=== PATIENT | male | born 1995 | race Two or more races ===

== ENCOUNTER 2021-02-19 18:10 | Inpatient (IN) | payer MEDICAID, SELFPAY ==
--- NOTE | ~2021-02-19 | XR_ITS ---
EXAMINATION: XR CHEST CLINICAL INFORMATION: Shortness of breath COMPARISON: 09/11/2019 TECHNIQUE: Frontal view of the chest was obtained. FINDINGS: Ill-defined patchy density seen at the left lung base which is new. In addition, some infrahilar right lower lobe patchy density may be present as well. Heart size normal. No evidence of CHF. No pleural effusions. XR/XR chest 1V IMPRESSION: Commonly reported imaging features of Covid 19 or viral pneumonia are present. Other processes such as influenza pneumonia or organizing pneumonia, as can be seen with drug toxicity and connective tissue disease, can cause a similar imaging pattern.
--- NOTE | ~2021-02-19 | CT_ITS ---
EXAMINATION: CT ANGIOGRAM OF THE CHEST WITH AND WITHOUT CONTRAST (CT PULMONARY ANGIOGRAM FOR PE) CLINICAL INFORMATION: Reason for Exam Hypoxia, elevated D-dimer COMPARISON: Chest radiograph from 02/19/2021. No prior chest CT. TECHNIQUE: Prior to contrast administration, noncontrast localization images were obtained. Subsequently, multidetector volumetric imaging was performed from the thoracic inlet to below the diaphragms following the administration of 135 mL Omnipaque 350 intravenous contrast. No contrast reaction reported Sagittal, coronal, and MIP oblique sagittal reformatted images were obtained on the CT workstation, uploaded to PACS, and reviewed. This CT examination was performed using dose optimization techniques as appropriate, variously including the following: *Automated exposure control *Adjustment of mA and/or kV according to patient size (this includes techniques or standardized protocols for targeted exams where dose is matched to indication/reason for exam; i.e. extremities or head) *Use of iterative reconstruction technique Total exam dose-length product 810 mGy-cm FINDINGS: QUALITY OF STUDY/CONTRAST BOLUS: Satisfactory. PULMONARY ARTERIES: No central or segmental pulmonary emboli. THORACIC AORTA: No aneurysm or dissection. LUNG: The central airways are patent. Tree in bud groundglass opacities of the right middle lobe. Additional groundglass opacity seen in both lower lobes and the lingula. No dense consolidation. PLEURA: No pleural effusion or pneumothorax. MEDIASTINUM: Normal heart size. No pericardial effusion. No hilar or mediastinal lymphadenopathy. No evidence of septal bowing or right heart strain. CHEST WALL/AXILLA: No axillary or internal mammary lymphadenopathy. OSSEOUS STRUCTURES: No acute or suspicious osseous abnormality. UPPER ABDOMEN: Small hiatal hernia. No reflux of contrast into the hepatic veins to suggest elevated right heart pressures. CT/CT angio chest PE protocol IMPRESSION: 1. No pulmonary embolism. 2. Groundglass opacities are scattered in both lungs, likely infectious or inflammatory in nature. VTE: negative
--- NOTE | ~2021-02-19 | US_ITS ---
EXAMINATION: US VENOUS ULTRASOUND WITH DOPPLER LOWER EXTREMITY, BILATERAL CLINICAL INFORMATION: Positive d-dimer. History of travel. COMPARISON: None TECHNIQUE: Ultrasound of the deep veins is performed from the hip to the calf with compression sonography and color and pulse Doppler assessment. Spectral analysis with color-flow imaging is performed. FINDINGS: RIGHT: There is normal venous compression and respiratory variation and augmented flow. The visualized common femoral vein, superficial femoral vein, profunda femoral vein, popliteal vein, and the trifurcation region shows no evidence of deep venous thrombosis. There is no significant popliteal fossa cyst. LEFT: There is normal venous compression and respiratory variation and augmented flow. The visualized common femoral vein, superficial femoral vein, profunda femoral vein, popliteal vein, and the trifurcation region shows no evidence of deep venous thrombosis. There is no significant popliteal fossa cyst. If the patient's symptoms persist, followup ultrasound in 5 days 7 days might be of value to exclude proximal propagation from a non-visualized calf vein. US/US venous duplex LE BI IMPRESSION: No DVT demonstrated in the bilateral lower extremities.
[2021-02-19 18:34] VITALS: BP 145/78; PULSE 124; RESP 24; TEMP 36.8; O2SAT 93; BMI 36.4
--- NOTE | 2021-02-19 19:32 | ECG_ITS ---
Test Reason : DIFF BREATHING Blood Pressure : / mmHG Vent. Rate : 109 BPM Atrial Rate : 109 BPM P-R Int : 126 ms QRS Dur : 088 ms QT Int : 296 ms P-R-T Axes : 063 077 060 degrees QTc Int : 398 ms Sinus tachycardia Otherwise normal ECG When compared with ECG of 11-SEP-2019 06:02, No significant change was found Referred By: Lillian Pickard Electronically Signed By:ERIKA VILLARREAL
--- NOTE | 2021-02-19 19:33 | ED.ASTHMA ---
HPI - Asthma General Chief Complaint: Asthma Stated Complaint: Asthma Time Seen by Provider: 02/19/21 19:25 Source: patient Mode of arrival: ambulatory History of Present Illness HPI Narrative: 26-year-old male with a past medical history of asthma presenting to the ED complaining of asthma exacerbation with nonproductive cough, SOB, and wheezing x1 hour. Admits his asthma is exacerbated with seasonal allergies which he is experiencing from the pollen, patient is visiting from [place] has been here for about 1 week. Reports using rescue inhaler with minimal relief, did not bring nebulizer machine. Denies chest pain, LE edema, history of blood clots, cigarette smoking MD complaint: asthma attack and shortness of breath Related Data Home Medications Medication Instructions Recorded Confirmed albuterol sulfate 1 puff PO Q6H PRN 02/19/21 02/19/21 fluticasone propion-salmeterol 1 puff INHALATION BID 02/19/21 02/19/21 [Advair Diskus] ipratropium-albuterol 1 vial INHALATION Q6H PRN 02/19/21 02/19/21 montelukast 1 tab PO BEDTIME 02/19/21 02/19/21 Allergies Allergy/AdvReac Type Severity Reaction Status Date / Time shellfish derived Allergy Severe SHORTNESS Verified 02/19/21 18:38 OF BREATH, SWELLING shrimp Allergy Severe ANAPHYLAXIS Verified 02/19/21 18:38 Review of Systems Review of Systems: Constitutional: No Fever, No Chills Cardiovascular: No Chest Pain, + SOB, No Dyspnea on Exertion, No Orthopnea, No Edema Respiratory: No Cough, No Sputum, +Wheezing Gastrointestinal: No Nausea, No Vomiting, No Diarrhea, No Constipation, No Abdominal pain Genitourinary: No Dysuria, No Urinary Frequency, No Hematuria Musculoskeletal: No joint pain, No Myalgias Skin: No Skin Lesions, No rash Neuro: No Weakness, No Numbness Yes all other systems are reviewed and are negative PMFSH Past Medical History Attestation statement: The following information was validated with the patient. Medical History (Updated 02/20/21 @ 00:38 by CAMDEN Ledezma) Asthma Social History Social History Advance Directives: No Physical Exam Vital Signs: Vital Signs: Last Vital Signs Temp 98.3 F 02/19/21 18:34 Pulse 116 H 02/19/21 23:52 Resp 24 H 02/19/21 23:52 BP 121/69 02/19/21 23:52 Pulse Ox 90 L 02/19/21 23:52 Body Mass Index 36.4 Const: General: cooperative Orientation/consciousness: patient oriented x3 Limitations: no limitations HENMT: Head: Yes normal to inspection Ears: hearing grossly normal bilaterally General nose exam: Normal external nose present Face and sinus: Yes normal facial exam Eyes: General: appearance normal, both eyes and all related structures EOM: EOMs intact bilaterally Neck: Neck: Yes normal visual inspection Resp: Effort & Inspection: no stridor and tachypneic Auscultation: wheezes expiratory wheezes and throughout Cardio: Rate: tachycardic Heart sounds: S1 normal heart sound present and S2 normal heart sound present GI: Inspection: Yes normal to inspection Palpation (GI): Soft to palpation and nontender Skin: Rashes: no rashes Wounds: no wounds Neuro: General: patient oriented x3 Gait exam (Neuro): Normal gait present Extrem: General: Yes normal to inspection, Yes no pedal edema and Yes no calf tenderness Course Course Course Narrative: XR chest 1V IMPRESSION: Commonly reported imaging features of Covid 19 or viral pneumonia are present. Other processes such as influenza pneumonia or organizing pneumonia, as can be seen with drug toxicity and connective tissue disease, can cause a similar imaging pattern. >> noted leukocytosis of 14.8 >> lactic and blood cultures added. Low concern for severe sepsis. IV ceftriaxone/azithromycin ordered. -labs otherwise unremarkable, troponin negative, COVID-19 negative -2153--on re-evaluation patient is sleeping and satting 88% on RA, lungs still with diffuse expiratory wheeze. Coags/D-dimer additional hour long nebulizer ordered, plan for admission -2231--D-dimer elevated to 339 >>will obtain CTA to rule out PE CT angio chest PE protocol IMPRESSION: 1. No pulmonary embolism. 2. Groundglass opacities are scattered in both lungs, likely infectious or inflammatory in nature. VTE: negative -0037--patient admitted to hospitalist for further management MDM - Asthma MDM Narrative Medical decision making narrative: 26-year-old male with a past medical history of asthma presenting to the ED complaining of asthma exacerbation with nonproductive cough, SOB, and wheezing x1 hour. On exam initially tachycardic and tachypneic with diffuse expiratory wheeze throughout, no pedal edema or calf tenderness. Concern for asthma exacerbation. Rule out pneumonia vs viral syndrome/COVID-19. Lower concern for ACS/PE Low concern for severe sepsis Plan: EKG, labs, COVID-19 testing, DuoNeb, magnesium, Solu-Medrol, reassess Medical Records Attestation: I reviewed the patient's medical records. Lab Data Attestation: I reviewed the patient's lab results. Result diagrams: 02/19/21 20:07 02/19/21 20:07 Labs: Lab Results 02/19/21 02/19/21 02/19/21 Range/Units 20:07 20:07 20:07 WBC 14.8 H (4.8-10.8) X10*3/uL RBC 4.88 (4.60-5.80) X10*6/uL Hgb 13.6 L (14.0-18.0) g/dl Hct 39.0 L (42-52) % MCV 79.9 L (80-98) fL MCH 27.9 (27.0-33.0) pg MCHC 34.9 (31.0-36.0) g/dl RDW 12.2 (11.0-16.0) % Plt Count 315 (160-400) X10*3/uL MPV 9.7 (9.4-12.4) fL Immature Gran % (Auto) 0.4 (0.0-0.4) % Neut % (Auto) 62.9 (45-73) % Lymph % (Auto) 19.1 L (20-40) % [place] % (Auto) 8.0 (2-11) % Eos % (Auto) 8.5 H (0-4) % Baso % (Auto) 1.1 (0-2) % Lymph # (Auto) 2.8 (1.2-4.9) X10*3/uL [place] # (Auto) 1.2 (0.1-1.2) X10*3/uL Eos # (Auto) 1.3 H (0.0-0.4) X10*3/uL Baso # (Auto) 0.2 (0.0-0.2) X10*3/uL Abs Immat Gran (auto) 0.06 H (0.00-0.03) X10*3/uL Absolute Neuts (auto) 9.3 H (2.0-8.3) X10*3/uL Absolute Nucleated RBC 0.000 (0.0-0.012) X10*3/uL Nucleated RBC % (auto) 0.0 (0.0-0.2) /100WBC PT (9.9-13.0) SEC INR (0.9-1.1) APTT (24.1-38.0) SEC D-Dimer NG/ML Sodium 138 (135-145) mmol/L Potassium 4.7 (3.3-5.1) mmol/L Chloride 107 (96-108) mmol/L Carbon Dioxide 20 L (22-29) mmol/L Anion Gap 16 (12-20) BUN 8 L (9-16) mg/dL Creatinine 0.79 (0.5-1.4) mg/dL Estim Creat Clear Calc 152.2 Estimated GFR > 60 Random Glucose 87 (60-115) mg/dL Lactic Acid (0.5-2.0) mmol/L Calcium 9.1 (8.4-10.2) mg/dL Troponin I High Sens < 3.5 (<3.5-35.0) ng/L B-Natriuretic Peptide (<100) pg/mL Coronavirus (PCR) (Negative) COVID-19 ([facility]) (Negative) COVID-19 Clin Com Influenza Type A (PCR) (Negative) Influenza Type B (PCR) (Negative) RSV RNA Qual (PCR) (Negative) 02/19/21 02/19/21 02/19/21 Range/Units 20:07 20:07 21:16 WBC (4.8-10.8) X10*3/uL RBC (4.60-5.80) X10*6/uL Hgb (14.0-18.0) g/dl Hct (42-52) % MCV (80-98) fL MCH (27.0-33.0) pg MCHC (31.0-36.0) g/dl RDW (11.0-16.0) % Plt Count (160-400) X10*3/uL MPV (9.4-12.4) fL Immature Gran % (Auto) (0.0-0.4) % Neut % (Auto) (45-73) % Lymph % (Auto) (20-40) % [place] % (Auto) (2-11) % Eos % (Auto) (0-4) % Baso % (Auto) (0-2) % Lymph # (Auto) (1.2-4.9) X10*3/uL [place] # (Auto) (0.1-1.2) X10*3/uL Eos # (Auto) (0.0-0.4) X10*3/uL Baso # (Auto) (0.0-0.2) X10*3/uL Abs Immat Gran (auto) (0.00-0.03) X10*3/uL Absolute Neuts (auto) (2.0-8.3) X10*3/uL Absolute Nucleated RBC (0.0-0.012) X10*3/uL Nucleated RBC % (auto) (0.0-0.2) /100WBC PT (9.9-13.0) SEC INR (0.9-1.1) APTT (24.1-38.0) SEC D-Dimer NG/ML Sodium (135-145) mmol/L Potassium (3.3-5.1) mmol/L Chloride (96-108) mmol/L Carbon Dioxide (22-29) mmol/L Anion Gap (12-20) BUN (9-16) mg/dL Creatinine (0.5-1.4) mg/dL Estim Creat Clear Calc Estimated GFR Random Glucose (60-115) mg/dL Lactic Acid 1.0 (0.5-2.0) mmol/L Calcium (8.4-10.2) mg/dL Troponin I High Sens (<3.5-35.0) ng/L B-Natriuretic Peptide < 10 (<100) pg/mL Coronavirus (PCR) (Negative) COVID-19 ([facility]) Negative (Negative) COVID-19 Clin Com See Note Influenza Type A (PCR) (Negative) Influenza Type B (PCR) (Negative) RSV RNA Qual (PCR) (Negative) 02/19/21 02/19/21 Range/Units 22:00 23:00 WBC (4.8-10.8) X10*3/uL RBC (4.60-5.80) X10*6/uL Hgb (14.0-18.0) g/dl Hct (42-52) % MCV (80-98) fL MCH (27.0-33.0) pg MCHC (31.0-36.0) g/dl RDW (11.0-16.0) % Plt Count (160-400) X10*3/uL MPV (9.4-12.4) fL Immature Gran % (Auto) (0.0-0.4) % Neut % (Auto) (45-73) % Lymph % (Auto) (20-40) % [place] % (Auto) (2-11) % Eos % (Auto) (0-4) % Baso % (Auto) (0-2) % Lymph # (Auto) (1.2-4.9) X10*3/uL [place] # (Auto) (0.1-1.2) X10*3/uL Eos # (Auto) (0.0-0.4) X10*3/uL Baso # (Auto) (0.0-0.2) X10*3/uL Abs Immat Gran (auto) (0.00-0.03) X10*3/uL Absolute Neuts (auto) (2.0-8.3) X10*3/uL Absolute Nucleated RBC (0.0-0.012) X10*3/uL Nucleated RBC % (auto) (0.0-0.2) /100WBC PT 12.7 (9.9-13.0) SEC INR 1.1 (0.9-1.1) APTT 36.0 (24.1-38.0) SEC D-Dimer 339 NG/ML Sodium (135-145) mmol/L Potassium (3.3-5.1) mmol/L Chloride (96-108) mmol/L Carbon Dioxide (22-29) mmol/L Anion Gap (12-20) BUN (9-16) mg/dL Creatinine (0.5-1.4) mg/dL Estim Creat Clear Calc Estimated GFR Random Glucose (60-115) mg/dL Lactic Acid (0.5-2.0) mmol/L Calcium (8.4-10.2) mg/dL Troponin I High Sens (<3.5-35.0) ng/L B-Natriuretic Peptide (<100) pg/mL Coronavirus (PCR) NEGATIVE (Negative) COVID-19 ([facility]) (Negative) COVID-19 Clin Com Influenza Type A (PCR) NEGATIVE (Negative) Influenza Type B (PCR) NEGATIVE (Negative) RSV RNA Qual (PCR) NEGATIVE (Negative) Discharge Plan Discharge Clinical Impression: Asthma with acute exacerbation, Ground glass opacity present on imaging of lung Patient Disposition: Admitted As Inpatient Prescriptions: No Action ipratropium-albuterol 0.5 mg-3 mg(2.5 mg base)/3 mL solution for nebulization 1 vial inhalation Q6H PRN (Reason: wheezing) RF: 0 fluticasone propion-salmeterol [Advair Diskus] 500-50 mcg/dose blister with device 1 puff inhalation BID RF: 0 montelukast 10 mg tablet 1 tab PO BEDTIME RF: 0 albuterol sulfate 90 mcg/actuation HFA aerosol inhaler 1 puff PO Q6H PRN (Reason: wheezing) RF: 0
[2021-02-19] MEDS: Albuterol Sulfate (0.083%) 2.5 MG/3 ML VIAL.NEB 10 MG INHALE ×2 (19:52→23:05)
[2021-02-19 19:53] VITALS: PULSE 117; O2SAT 94
[2021-02-19 20:13] LABS: MANUAL DIFF FLAG NO
[2021-02-19] MEDS: Magnesium Sulfate/H2O 2 GM/50 ML PIGGYBACK IV (20:14)
[2021-02-19] MEDS: methylPREDNISolone Sod Succ 125 MG/2 ML VIAL IVPUSH (20:14)
[2021-02-19 20:16] LABS: Basophils Absolute Auto 0.2 X10*3/uL (0.0-0.2); Basophils Percent Auto 1.1 % (0-2); Eosinophils Absolute Auto 1.3 X10*3/uL (0.0-0.4); Eosinophils Percent Auto 8.5 % (0-4); Hemoglobin 13.6 g/dl (14.0-18.0); Imm Gran Abs Auto 0.06 X10*3/uL (0.00-0.03); Imm Gran Pct Auto 0.4 % (0.0-0.4); Lymphocytes Absolute Auto 2.8 X10*3/uL (1.2-4.9); Lymphocytes Percent Auto 19.1 % (20-40); Mean Corpuscular HGB Conc 34.9 g/dl (31.0-36.0); Mean Corpuscular Hemoglobin 27.9 pg (27.0-33.0); Mean Corpuscular Volume 79.9 fL (80-98); Mean Platelet Volume 9.7 fL (9.4-12.4); Monocytes Absolute Auto 1.2 X10*3/uL (0.1-1.2); Neutrophils Absolute Auto 9.3 X10*3/uL (2.0-8.3); Neutrophils Percent Auto 62.9 % (45-73); Platelet Count 315 X10*3/uL (160-400); Red Blood Count 4.88 X10*6/uL (4.60-5.80); Red Cell Distribution Width 12.2 % (11.0-16.0); White Blood Count 14.8 X10*3/uL (4.8-10.8)
[2021-02-19 20:42] LABS: COVID-19 Test Negative (Negative)
[2021-02-19 20:46] LABS: Anion Gap 16 (12-20); Blood Urea Nitrogen 8 mg/dL (9-16); Calcium 9.1 mg/dL (8.4-10.2); Carbon Dioxide 20 mmol/L (22-29); Chloride 107 mmol/L (96-108); Creatinine Clr Calc Pharmacy 152.2; Estimated Glomerular Filt Rate > 60; Glucose Random 87 mg/dL (60-115); Potassium 4.7 mmol/L (3.3-5.1); Sodium 138 mmol/L (135-145)
[2021-02-19 20:50] LABS: Troponin-I High Sensitivity < 3.5 ng/L (<3.5-35.0)
--- NOTE | 2021-02-19 20:59 | PC.NURSE ---
PT'S SPO2 88% WHILE SLEEPING. PT WAKES AND SPO2 UP TO 93% ROOM AIR. PT REPORTS HE BEGAN COUGHING TODAY, THINKS HIS NASAL CONGESTION IS FROM SEASONAL ALLERGIES.
[2021-02-19 21:00] VITALS: BP 136/80; PULSE 121; RESP 22; O2SAT 91
[2021-02-19] MEDS: cefTRIAXone sodium 1 GM in 0.9 % Sodium Chloride 50 ML IV (22:08)
--- NOTE | 2021-02-19 22:08 | PHA.MEDREC ---
Pharmacy Consult ? Medication Reconciliation Pharmacy has completed the medication reconciliation.
[2021-02-19 22:14] LABS: INTERNATIONAL NORM RATIO 1.1 (0.9-1.1); Prothrombin Time 12.7 SEC (9.9-13.0)
[2021-02-19 22:17] LABS: D Dimer 339 NG/ML
--- NOTE | 2021-02-19 22:22 | PC.NURSE ---
PT PLACED ON 2 LPM O2 VIA NC, SPO3 REMAINS AT 94%.
[2021-02-19 22:42] LABS: B Type Natriuretic Peptide < 10 pg/mL (<100)
[2021-02-19] MEDS: Azithromycin 500 MG in 0.9 % Sodium Chloride 250 ML 125 MG IV (22:48)
--- NOTE | 2021-02-19 22:49 | PC.NURSE ---
PT REPORTS FEELING BETTER FOLLOWING RESPIRATORY TREATMENT. PT RESTING ON STRETCHER IN SUPINE POSITION. PT ON 3 LPM 02 VIA NC AND IS AT 97%.
[2021-02-19 23:05] VITALS: PULSE 107; O2SAT 95
[2021-02-19 23:52] VITALS: BP 121/69; PULSE 116; RESP 24; O2SAT 90
[2021-02-19 23:55] LABS: Influenza A PCR NEGATIVE (Negative); Influenza B PCR NEGATIVE (Negative); Resp Syncy Virus RNA Qual PCR NEGATIVE (Negative); SARS COV2 PCR INHOUSE NEGATIVE (Negative)
--- NOTE | 2021-02-20 | PC.NURSE ---
PT REQUESTED AND GIVEN SODA, SANDWICH AND CRACKERS. PT SITTING UPRIGHT, NO DISTRESS OR COMPLAINT OF DYSPNEA.
[2021-02-20] MEDS: iohexoL 350 MG/ML 100 ML INFUS..BTL 136 ML IV (00:14)
--- NOTE | 2021-02-20 00:43 | P.HPHOSP_ITS ---
History of Present Illness Date of Service: 02/20/21 Chief Complaint: SOB 26-year-old male with a past medical history of asthma presented to the hospital with a chief complaint of shortness of breath. Patient reported that about 1 week ago he came from [place]; he has been having shortness of breath and dyspnea on exertion; S1 strict dry cough. Denies any fevers and chills. Denies any chest pain palpitations. Patient reports that he has been trying to use his home inhalers without significant improvement. Denies any numbness tingling. Denies any leg pains. Review of all other systems is negative except mentioned above ER course: Per ER team patient noted to have significant expiratory wheezing, diminished breath sounds; received nebulizations, Solu-Medrol, IV magnesium; patient was not in respiratory distress, speaking in full sentences. D-dimer was positive-CT chest showed no evidence of pulmonary embolism. But noted findings consistent with possible COVID-19. Patient was also given ceftriaxone and azithromycin for presumed pneumonia. Patient was hypoxic to 88% on room air subsequently placed on nasal cannula at 3 L. currently saturating 90-92%. Admitted for further management [facility] Medical History Asthma Social History Household Members: Family Do you presently have visiting nurse or other home services: No Patient Tobacco Use Status: Never used Tobacco Use of substances other than those prescribed or required for medical reasons: No Currently Displaying Signs/Symptoms of Drug Intoxication Withdrawal: No Have you been hit, kicked, punched, or otherwise hurt by someone within the past year? If so, by whom?: No Do you feel safe in your current relationship?: No Is there a partner from a previous relationship who is making you feel unsafe now?: No Spiritual Healthcare Practices: none reported [facility] Practices: none reported Cultural Healthcare Practices: none reported Advance Directives: No Advance Directives Information Provided: No (declined) Do you have thoughts of harming others: None Do you have a plan to hurt others: No Plan Recently lost weight without trying: Unsure Eating poorly because of decreased appetite: No Nutrition Risks: No Nutritional Risk Poor oral hygiene: No Meds Allergies Allergy/AdvReac Type Severity Reaction Status Date / Time shellfish derived Allergy Severe SHORTNESS Verified 02/19/21 18:38 OF BREATH, SWELLING shrimp Allergy Severe ANAPHYLAXIS Verified 02/19/21 18:38 Active Medications: Current Medications Generic Name Dose Route Start Last Admin Trade Name Freq PRN Reason Stop Dose Admin Albuterol/Ipratropium 3 ml 02/20/21 00:36 Albuterol/Iprat 2.5/0.5mg 3 Ml Ampul.Neb INHALE RQ4H PRN Shortness of Breath/Wheezing Albuterol/Ipratropium 3 ml 02/20/21 08:00 Albuterol/Iprat 2.5/0.5mg 3 Ml Ampul.Neb INHALE RQ6H WHILE AWAKE ENRIKE Famotidine 20 mg 02/20/21 09:00 Famotidine/Pf 20 Mg/2 Ml Vial IVPUSH BID [facility] Azithromycin 500 mg/ Sodium 250 mls @ 125 mls/hr 02/20/21 00:45 Chloride IV Q24H [facility] Ceftriaxone Sodium 1 gm/ 50 mls @ 100 mls/hr 02/20/21 00:45 Sodium Chloride IV Q24H [facility] Methylprednisolone Sodium Succinate 60 mg 02/20/21 00:45 Methylprednisolone Sod Succ 125 Mg/2 Ml Vial IVPUSH Q8H [facility] Montelukast Sodium 10 mg 02/20/21 21:00 Montelukast Sodium 10 Mg Tablet PO BEDTIME [facility] Morphine Sulfate 1 mg 02/20/21 00:36 Morphine Sulfate 2 Mg/Ml Cartridge IVPUSH Q6H PRN Shortness of Breath Pharmacy Consult 1 each 02/19/21 21:53 Consult Rx Perform Med Rec MISCELLANE ONCE PRN Consult order Home Medications Medication Instructions Recorded Confirmed Last Taken Type albuterol sulfate 1 puff PO Q6H PRN 02/19/21 02/19/21 Unknown History fluticasone propion-salmeterol 1 puff INHALATION BID 02/19/21 02/19/21 02/19/21 History [Advair Diskus] montelukast 1 tab PO BEDTIME 02/19/21 02/19/21 02/18/21 History Physical Exam Vital Signs and Narrative: Vital Signs: Last Vital Signs Temp 98.3 F 02/19/21 18:34 Pulse 116 H 02/19/21 23:52 Resp 24 H 02/19/21 23:52 BP 121/69 02/19/21 23:52 Pulse Ox 90 L 02/19/21 23:52 Body Mass Index 36.4 Gen: Appears be in no acute distress speaks in full sentences HEENT: NCAT, Moist mucosa. Pulmonary: Mildly diminished breath sounds, expiratory wheezing noted. CVS: Normal S1-S2 Abdomen: BS+, Soft, Nontender Extremities: Warm well perfused Neuro: Alert and awake. Results Labs CBC and Chem 7: 02/20/21 05:57 02/20/21 05:57 Labs: Laboratory Results - last 24 hr 02/19/21 02/19/21 02/19/21 20:07 20:07 20:07 MCV 79.9 L MCH 27.9 MCHC 34.9 RDW 12.2 Plt Count 315 MPV 9.7 Immature Gran % (Auto) 0.4 Neut % (Auto) 62.9 Lymph % (Auto) 19.1 L [place] % (Auto) 8.0 Eos % (Auto) 8.5 H Baso % (Auto) 1.1 Lymph # (Auto) 2.8 [place] # (Auto) 1.2 Eos # (Auto) 1.3 H Baso # (Auto) 0.2 Abs Immat Gran (auto) 0.06 H Absolute Neuts (auto) 9.3 H Absolute Nucleated RBC 0.000 Nucleated RBC % (auto) 0.0 PT INR APTT D-Dimer Anion Gap 16 Estim Creat Clear Calc 152.2 Estimated GFR > 60 Random Glucose 87 Lactic Acid Calcium 9.1 Troponin I High Sens < 3.5 B-Natriuretic Peptide Coronavirus (PCR) COVID-19 ([facility]) COVID-19 Clin Com Influenza Type A (PCR) Influenza Type B (PCR) RSV RNA Qual (PCR) 02/19/21 02/19/21 02/19/21 20:07 20:07 21:16 MCV MCH MCHC RDW Plt Count MPV Immature Gran % (Auto) Neut % (Auto) Lymph % (Auto) [place] % (Auto) Eos % (Auto) Baso % (Auto) Lymph # (Auto) [place] # (Auto) Eos # (Auto) Baso # (Auto) Abs Immat Gran (auto) Absolute Neuts (auto) Absolute Nucleated RBC Nucleated RBC % (auto) PT INR APTT D-Dimer Anion Gap Estim Creat Clear Calc Estimated GFR Random Glucose Lactic Acid 1.0 Calcium Troponin I High Sens B-Natriuretic Peptide < 10 Coronavirus (PCR) COVID-19 ([facility]) Negative COVID-19 Clin Com See Note Influenza Type A (PCR) Influenza Type B (PCR) RSV RNA Qual (PCR) 02/19/21 02/19/21 22:00 23:00 MCV MCH MCHC RDW Plt Count MPV Immature Gran % (Auto) Neut % (Auto) Lymph % (Auto) [place] % (Auto) Eos % (Auto) Baso % (Auto) Lymph # (Auto) [place] # (Auto) Eos # (Auto) Baso # (Auto) Abs Immat Gran (auto) Absolute Neuts (auto) Absolute Nucleated RBC Nucleated RBC % (auto) PT 12.7 INR 1.1 APTT 36.0 D-Dimer 339 Anion Gap Estim Creat Clear Calc Estimated GFR Random Glucose Lactic Acid Calcium Troponin I High Sens B-Natriuretic Peptide Coronavirus (PCR) NEGATIVE COVID-19 ([facility]) COVID-19 Clin Com Influenza Type A (PCR) NEGATIVE Influenza Type B (PCR) NEGATIVE RSV RNA Qual (PCR) NEGATIVE Imaging Radiologist's Impressions: Impressions Chest X-Ray 02/19/21 19:32 IMPRESSION: Commonly reported imaging features of Covid 19 or viral pneumonia are present. Other processes such as influenza pneumonia or organizing pneumonia, as can be seen with drug toxicity and connective tissue disease, can cause a similar imaging pattern. Chest CTA 02/19/21 22:31 IMPRESSION: 1. No pulmonary embolism. 2. Groundglass opacities are scattered in both lungs, likely infectious or inflammatory in nature. VTE: negative Assessment and Plan (1) Asthma with acute exacerbation: Status: Acute 26-year-old male with a past medical history of asthma, obesity presented to the hospital with a chief complaint of shortness of breath/wheezing. Noted to be in asthma exacerbation. Admitted for further management. Acute hypoxic respiratory failure: In the setting of Exacerbation/question COVID-19. Patient rapid COVID test was negative. CT scan showed ground-glass opacities consistent with COVID-19; no evidence of pulmonary embolism ? Presume pneumonia-started empiric ceftriaxone azithromycin. Will consult ID and pulmonology for further recommendations. Supplemental oxygen with goal saturation of 95%. Positive D-dimer: Pending venous duplex Acute asthma exacerbation: Continue Solu-Medrol IV t.i.d.. Nebulizations standing and p.r.n.. DVT prophylaxis: Lovenox Code status: Full code Quality Stroke Does the patient have a stroke diagnosis?: No VTE Prior VTE?: No VTE Risk Level:: Medical - moderate - high VTE Device Contraindication: Treatment Not Indicated VTE Drug Contraindication: N/A - Med Ordered
[2021-02-20 02:48] VITALS: BP 137/68; PULSE 111; RESP 20; TEMP 36.7; O2SAT 95
[2021-02-20] MEDS: Enoxaparin Sodium 40 MG/0.4 ML SYRINGE SUBCUT (03:01)
[2021-02-20] MEDS: methylPREDNISolone Sod Succ 125 MG/2 ML VIAL 60 MG IVPUSH (05:04)
[2021-02-20 06:35] LABS: MANUAL DIFF FLAG NO
[2021-02-20 07:19] VITALS: BP 126/52; PULSE 96; RESP 20; TEMP 36.4; O2SAT 94
[2021-02-20 07:21] LABS: Anion Gap 17 (12-20); Blood Urea Nitrogen 8 mg/dL (9-16); Calcium 9.1 mg/dL (8.4-10.2); Carbon Dioxide 20 mmol/L (22-29); Chloride 106 mmol/L (96-108); Creatinine Clr Calc Pharmacy 143.1; Estimated Glomerular Filt Rate > 60; Glucose Random 159 mg/dL (60-115); Potassium 4.7 mmol/L (3.3-5.1); Sodium 138 mmol/L (135-145)
[2021-02-20] MEDS: Albuterol/Iprat 2.5/0.5MG 3 ML AMPUL.NEB INHALE (07:28)
[2021-02-20 07:29] VITALS: PULSE 102; O2SAT 94
[2021-02-20 07:36] LABS: Basophils Absolute Auto 0.1 X10*3/uL (0.0-0.2); Basophils Percent Auto 0.4 % (0-2); Eosinophils Percent Auto 0.1 % (0-4); Hematocrit 40.1 % (42-52); Hemoglobin 13.7 g/dl (14.0-18.0); Imm Gran Abs Auto 0.09 X10*3/uL (0.00-0.03); Imm Gran Pct Auto 0.6 % (0.0-0.4); Lymphocytes Absolute Auto 1.2 X10*3/uL (1.2-4.9); Lymphocytes Percent Auto 7.7 % (20-40); Mean Corpuscular HGB Conc 34.2 g/dl (31.0-36.0); Mean Corpuscular Hemoglobin 27.9 pg (27.0-33.0); Mean Corpuscular Volume 81.7 fL (80-98); Mean Platelet Volume 10.1 fL (9.4-12.4); Monocytes Absolute Auto 0.3 X10*3/uL (0.1-1.2); Monocytes Percent Auto 1.7 % (2-11); Neutrophils Percent Auto 89.5 % (45-73); Platelet Count 336 X10*3/uL (160-400); Red Blood Count 4.91 X10*6/uL (4.60-5.80); Red Cell Distribution Width 12.5 % (11.0-16.0); White Blood Count 15.7 X10*3/uL (4.8-10.8)
[2021-02-20] MEDS: 0.9 % Sodium Chloride Flush 3 ML SYRINGE IVFLUSH (08:10)
[2021-02-20] MEDS: Famotidine/PF 20 MG/2 ML VIAL IVPUSH (08:12)
[2021-02-20 09:06] LABS: Lactate Dehydrogenase 234 U/L (118-273)
[2021-02-20 09:30] LABS: Ferritin 167 ng/mL (20-250)
[2021-02-20 10:47] LABS: Procalcitonin 0.03 ng/mL
[2021-02-20 11:25] VITALS: BP 124/70; PULSE 101; RESP 18; O2SAT 95
--- NOTE | 2021-02-20 12:28 | PM.DS ---
DS: Providers Provider Date of Service: 02/20/21 Date of admission: 02/20/21 00:40 Date of discharge: 02/20/21 Primary care physician: Vernon Physician Admitting clinician: Deandre Lim Attending physician on admission: Deandre Lim Consults: 02/20/21 00:36 Consult to Infectious Diseases Routine Consulting Provider: Netta Jones Reason for consultation: CT with [facility]; ?COVID Consult to Pulmonology Routine Consulting Provider: Adriana Ramos Reason for consultation: Asthma/hypoxia/?COVID Attending physician on discharge: Juancarlos Baron Discharging clinician: Ashanti Rios DS: Diagnosis Discharge Diagnosis (1) Ground glass opacity present on imaging of lung: Status: Acute (2) Asthma with acute exacerbation: Status: Acute DS: Medications Discharge Medications Home Medications: Home Medications Medication Instructions Recorded Confirmed albuterol sulfate 1 puff PO Q6H PRN 02/19/21 02/19/21 fluticasone propion-salmeterol 1 puff INHALATION BID 02/19/21 02/19/21 [Advair Diskus] montelukast 1 tab PO BEDTIME 02/19/21 02/19/21 Previous Rx's Medication Instructions Recorded albuterol sulfate 2.5 mg INHALATION Q4-6H PRN 30 02/20/21 Days ml azithromycin 500 mg PO DAILY #6 tab 02/20/21 cefuroxime axetil 500 mg PO BID #12 tab 02/20/21 prednisone 40 mg PO DAILY #16 tab 02/20/21 DS: Summary Hospital Course Hospital Course: HP as per admitting provider 26-year-old male with a past medical history of asthma presented to the hospital with a chief complaint of shortness of breath. Patient reported that about 1 week ago he came from [place]; he has been having shortness of breath and dyspnea on exertion; S1 strict dry cough. Denies any fevers and chills. Denies any chest pain palpitations. Patient reports that he has been trying to use his home inhalers without significant improvement. Denies any numbness tingling. Denies any leg pains.Review of all other systems is negative except mentioned above ER course: Per ER team patient noted to have significant expiratory wheezing, diminished breath sounds; received nebulizations, Solu-Medrol, IV magnesium; patient was not in respiratory distress, speaking in full sentences. D-dimer was positive-CT chest showed no evidence of pulmonary embolism. But noted findings consistent with possible COVID-19. Patient was also given ceftriaxone and azithromycin for presumed pneumonia. Patient was hypoxic to 88% on room air subsequently placed on nasal cannula at 3 L. currently saturating 90-92%. Admitted for further management . Community-acquired pneumonia. Patient was admitted with symptoms of asthma exacerbation, he was subsequently diagnosed with pneumonia, COVID negative. Patient has a long history of asthma he reports that he has been more well controlled more recently. He had been more frequently admitted but moved to [place] approximately 2 years ago, is currently visiting. He was started on Rocephin and azithromycin however he told his nurse that he needed to leave because he had nobody to watch his children. He was aware that his symptoms could worsen without the current medication he is receiving he reported that he was aware and he wants to leave against medical advice. He will be sent with 6 more days of Ceftin and azithromycin. New prescription for albuterol DuoNeb solution and 4 days of prednisone. He was told that he should return to the ER if his symptoms worsen or do not improve. Time Spent with Patient Time attestation: Total time spent providing and/or coordinating discharge services: Discharge coordination time: Greater than 30 minutes Quality: Stroke Does the patient have a stroke diagnosis?: No Physical Exam Vital Signs: Vital Signs: Last Vital Signs Temp 97.5 F 02/20/21 07:19 Pulse 101 H 02/20/21 11:25 Resp 18 02/20/21 11:25 BP 124/70 02/20/21 11:25 Pulse Ox 95 02/20/21 11:25 Body Mass Index 36.4 Appearing in no acute distress head is normocephalic atraumatic eyes pupils are PERRLA sclera is anicteric mouth throat mucous membranes are intact and moist neck is supple no lymphadenopathy, no JVD noted lung sounds Mild expiratory wheezes heart regular rate rhythm, clear S1, S2 positive bowel sounds, abdomen is soft, nontender neuro patient is alert x3, no focal deficits DS: Data Data Completed and Pending Labs on day of discharge: Laboratory Results - last 24 hr 02/19/21 02/19/21 02/19/21 20:07 20:07 20:07 WBC 14.8 H RBC 4.88 Hgb 13.6 L Hct 39.0 L MCV 79.9 L MCH 27.9 MCHC 34.9 RDW 12.2 Plt Count 315 MPV 9.7 Immature Gran % (Auto) 0.4 Neut % (Auto) 62.9 Lymph % (Auto) 19.1 L [place] % (Auto) 8.0 Eos % (Auto) 8.5 H Baso % (Auto) 1.1 Lymph # (Auto) 2.8 [place] # (Auto) 1.2 Eos # (Auto) 1.3 H Baso # (Auto) 0.2 Abs Immat Gran (auto) 0.06 H Absolute Neuts (auto) 9.3 H Absolute Nucleated RBC 0.000 Nucleated RBC % (auto) 0.0 PT INR APTT D-Dimer Sodium 138 Potassium 4.7 Chloride 107 Carbon Dioxide 20 L Anion Gap 16 BUN 8 L Creatinine 0.79 Estim Creat Clear Calc 152.2 Estimated GFR > 60 Random Glucose 87 Lactic Acid Calcium 9.1 Ferritin Lactate Dehydrogenase Troponin I High Sens < 3.5 B-Natriuretic Peptide Procalcitonin Coronavirus (PCR) COVID-19 ([facility]) COVID-19 Clin Com Influenza Type A (PCR) Influenza Type B (PCR) RSV RNA Qual (PCR) 02/19/21 02/19/21 02/19/21 20:07 20:07 21:16 WBC RBC Hgb Hct MCV MCH MCHC RDW Plt Count MPV Immature Gran % (Auto) Neut % (Auto) Lymph % (Auto) [place] % (Auto) Eos % (Auto) Baso % (Auto) Lymph # (Auto) [place] # (Auto) Eos # (Auto) Baso # (Auto) Abs Immat Gran (auto) Absolute Neuts (auto) Absolute Nucleated RBC Nucleated RBC % (auto) PT INR APTT D-Dimer Sodium Potassium Chloride Carbon Dioxide Anion Gap BUN Creatinine Estim Creat Clear Calc Estimated GFR Random Glucose Lactic Acid 1.0 Calcium Ferritin Lactate Dehydrogenase Troponin I High Sens B-Natriuretic Peptide < 10 Procalcitonin Coronavirus (PCR) COVID-19 ([facility]) Negative COVID-19 Clin Com See Note Influenza Type A (PCR) Influenza Type B (PCR) RSV RNA Qual (PCR) 02/19/21 02/19/21 02/20/21 22:00 23:00 05:57 WBC 15.7 H RBC 4.91 Hgb 13.7 L Hct 40.1 L MCV 81.7 MCH 27.9 MCHC 34.2 RDW 12.5 Plt Count 336 MPV 10.1 Immature Gran % (Auto) 0.6 H Neut % (Auto) 89.5 H Lymph % (Auto) 7.7 L [place] % (Auto) 1.7 L Eos % (Auto) 0.1 Baso % (Auto) 0.4 Lymph # (Auto) 1.2 [place] # (Auto) 0.3 Eos # (Auto) 0.0 Baso # (Auto) 0.1 Abs Immat Gran (auto) 0.09 H Absolute Neuts (auto) 14.0 H Absolute Nucleated RBC 0.000 Nucleated RBC % (auto) 0.0 PT 12.7 INR 1.1 APTT 36.0 D-Dimer 339 Sodium Potassium Chloride Carbon Dioxide Anion Gap BUN Creatinine Estim Creat Clear Calc Estimated GFR Random Glucose Lactic Acid Calcium Ferritin Lactate Dehydrogenase Troponin I High Sens B-Natriuretic Peptide Procalcitonin Coronavirus (PCR) NEGATIVE COVID-19 ([facility]) COVID-19 Clin Com Influenza Type A (PCR) NEGATIVE Influenza Type B (PCR) NEGATIVE RSV RNA Qual (PCR) NEGATIVE 02/20/21 02/20/21 05:57 05:57 WBC RBC Hgb Hct MCV MCH MCHC RDW Plt Count MPV Immature Gran % (Auto) Neut % (Auto) Lymph % (Auto) [place] % (Auto) Eos % (Auto) Baso % (Auto) Lymph # (Auto) [place] # (Auto) Eos # (Auto) Baso # (Auto) Abs Immat Gran (auto) Absolute Neuts (auto) Absolute Nucleated RBC Nucleated RBC % (auto) PT INR APTT D-Dimer Sodium 138 Potassium 4.7 Chloride 106 Carbon Dioxide 20 L Anion Gap 17 BUN 8 L Creatinine 0.84 Estim Creat Clear Calc 143.1 Estimated GFR > 60 Random Glucose 159 H D Lactic Acid Calcium 9.1 Ferritin 167 Lactate Dehydrogenase 234 Troponin I High Sens B-Natriuretic Peptide Procalcitonin 0.03 Coronavirus (PCR) COVID-19 ([facility]) COVID-19 Clin Com Influenza Type A (PCR) Influenza Type B (PCR) RSV RNA Qual (PCR) Discharge Plan Discharge Anticipated Discharge Date/Time: 02/20/21 12:25 Patient Disposition: Left Against Medical Advice Discharge Diagnosis: community-acquired pneumonia asthma exacerbation Referrals: Physician,Unknown [Primary Care Provider] - 1 Week Discharge Medications: New azithromycin 500 mg tablet 500 mg PO DAILY Qty: 6 RF: 0 cefuroxime axetil 500 mg tablet 500 mg PO BID Qty: 12 RF: 0 prednisone 10 mg tablet 40 mg PO DAILY Qty: 16 RF: 0 albuterol sulfate 2.5 mg /3 mL (0.083 %) solution for nebulization 2.5 mg inhalation Q4-6H PRN (Reason: bronchospasm) 30 Days RF: 0 Continued fluticasone propion-salmeterol [Advair Diskus] 500-50 mcg/dose blister with device 1 puff inhalation BID RF: 0 montelukast 10 mg tablet 1 tab PO BEDTIME RF: 0 albuterol sulfate 90 mcg/actuation HFA aerosol inhaler 1 puff PO Q6H PRN (Reason: wheezing) RF: 0 Discontinued ipratropium-albuterol 0.5 mg-3 mg(2.5 mg base)/3 mL solution for nebulization 1 vial inhalation Q6H PRN (Reason: wheezing) RF: 0 Discharge Orders: Discharge Order (Routine); Ordered 02/20/21 Ordered By: Ashanti Rios Diet: advance to usual diet Activity on Discharge: As tolerated Care Plan Goals: resolution of cough, runny nose and shortness of breath from asthma and pneumonia Health Concerns: community-acquired pneumonia asthma exacerbation Plan of Treatment: left against medical advice. Follow up with the primary care provider as needed. Continue 4 more days of oral steroids, 6 more days of antibiotics for pneumonia Assessment: see discharge summary
--- NOTE | 2021-02-20 12:36 | MHC.CM.PN ---
Patient left AMA prior to CM interview.
== END 2021-02-20 12:40 | disposition left against medical advice (07) | DRG 139 ==
LOC: HO.ED 02-20 00:38 → HO.IMC 02-20 01:02
PROVIDERS: Nurse Practitioner Acute Care; Physician Assistant; Admitting Provider Hospitalist; Emergency Provider Internal Medicine; Visit Provider Hospitalist
DX: J18.9 Pneumonia, unspecified organism (principal); J96.01 Acute respiratory failure with hypoxia; J45.901 Unspecified asthma with (acute) exacerbation; Z20.822 Contact with and (suspected) exposure to COVID-19; Z79.51 Long term (current) use of inhaled steroids; Z79.899 Other long term (current) drug therapy
CPT/HCPCS: 0241U; 36415; 71045; 71275; 80048; 82728; 83605; 83615; 83880; 84145; 84484; 85025; 85379; 85610; 85730; 87040; 87635; 93005; 93970; 94640; 94644; 94645; 99285; J0456; J0696; J1650; J2930; J3475; Q9967

== ENCOUNTER 2021-03-26 16:13 | Emergency (ER) | payer MEDICAID, SELFPAY ==
--- NOTE | ~2021-03-26 | XR_ITS ---
EXAMINATION: XR CHEST CLINICAL INFORMATION: Cough and shortness of breath COMPARISON: 02/19/2021 TECHNIQUE: 2 views of the chest were obtained. FINDINGS: The lungs are well expanded. Mild patchy left upper lobe suprahilar opacity. No pleural effusion. No pneumothorax. The cardiomediastinal silhouette is within normal limits. XR/XR chest 2V IMPRESSION: Left suprahilar airspace opacity may represent pneumonia. Follow-up to resolution.
[2021-03-26 16:35] VITALS: BP 132/84; PULSE 107; RESP 20; TEMP 37; O2SAT 92; BMI 34.9
[2021-03-26 16:43] VITALS: BP 151/86; PULSE 103; O2SAT 93
[2021-03-26 17:01] LABS: MANUAL DIFF FLAG NO
[2021-03-26] MEDS: Magnesium Sulfate/H2O 2 GM/50 ML PIGGYBACK IV (17:04)
[2021-03-26 17:05] LABS: Basophils Absolute Auto 0.2 X10*3/uL (0.0-0.2); Basophils Percent Auto 1.2 % (0-2); Eosinophils Absolute Auto 1.3 X10*3/uL (0.0-0.4); Eosinophils Percent Auto 10.3 % (0-4); Hematocrit 41.2 % (42-52); Hemoglobin 14.5 g/dl (14.0-18.0); Imm Gran Abs Auto 0.04 X10*3/uL (0.00-0.03); Imm Gran Pct Auto 0.3 % (0.0-0.4); Lymphocytes Absolute Auto 3.4 X10*3/uL (1.2-4.9); Lymphocytes Percent Auto 25.9 % (20-40); Mean Corpuscular HGB Conc 35.2 g/dl (31.0-36.0); Mean Corpuscular Hemoglobin 28.1 pg (27.0-33.0); Mean Corpuscular Volume 79.8 fL (80-98); Mean Platelet Volume 9.6 fL (9.4-12.4); Monocytes Absolute Auto 1.2 X10*3/uL (0.1-1.2); Neutrophils Absolute Auto 6.9 X10*3/uL (2.0-8.3); Neutrophils Percent Auto 53.3 % (45-73); Platelet Count 318 X10*3/uL (160-400); Red Blood Count 5.16 X10*6/uL (4.60-5.80); Red Cell Distribution Width 12.2 % (11.0-16.0)
[2021-03-26] MEDS: methylPREDNISolone Sod Succ 125 MG/2 ML VIAL IVPUSH (17:05)
[2021-03-26 17:23] LABS: COVID-19 Test Negative (Negative); IDNOW Serial# 9DD0AD1C
--- NOTE | 2021-03-26 17:23 | ED.ASTHMA ---
HPI - Asthma General Chief Complaint: Asthma Stated Complaint: diff breathing Time Seen by Provider: 03/26/21 16:38 Source: patient Mode of arrival: ambulatory Limitations: no limitations History of Present Illness HPI Narrative: 26-year-old male with a past medical history of asthma here with asthma symptoms times 24 hours. No fevers or chills. Has not received a COVID vaccine. No chest pain, leg swelling or pain. Related Data Home Medications Medication Instructions Recorded Confirmed albuterol sulfate 90 mcg/actuation 1 puff PO Q6H PRN 02/19/21 02/19/21 aerosol inhaler fluticasone 500 mcg-salmeterol 50 1 puff INHALATION BID 02/19/21 02/19/21 mcg/dose blistr powdr for inhalation (Advair Diskus) montelukast 10 mg tablet 1 tab PO BEDTIME 02/19/21 02/19/21 Previous Rx's Medication Instructions Recorded albuterol sulfate 2.5 mg INHALATION Q4-6H PRN 30 02/20/21 Days ml azithromycin 500 mg tablet 500 mg PO DAILY #6 tab 02/20/21 cefuroxime axetil 500 mg tablet 500 mg PO BID #12 tab 02/20/21 prednisone 10 mg tablet 40 mg PO DAILY #16 tab 02/20/21 doxycycline monohydrate 100 mg 100 mg PO BID #20 cap 03/26/21 capsule prednisone 20 mg tablet 40 mg PO DAILY #8 tab 03/26/21 Allergies Allergy/AdvReac Type Severity Reaction Status Date / Time shellfish derived Allergy Severe SHORTNESS Verified 02/19/21 18:38 OF BREATH, SWELLING shrimp Allergy Severe ANAPHYLAXIS Verified 02/19/21 18:38 Review of Systems Review of Systems: Yes all other systems are reviewed and are negative Constitutional: Constitutional: Reports no additional constitutional complaints, Denies body ache(s), Denies chills, Denies fever(s), Denies headache(s) and Denies weakness Eyes: Eyes: Reports no additional eye complaints and Denies change in vision ENT: Reports system reviewed and no additional complaints, except as documented, Denies dizziness, Denies headache(s), Denies nasal congestion, Denies nasal discharge and Denies neck pain Cardiovascular: Cardiovascular: Reports no additional cardiovascular complaints, Denies chest pain, Denies leg edema and Reports dyspnea Respiratory: Respiratory: Reports no additional respiratory complaints, Reports cough and Reports dyspnea Gastrointestinal: Gastrointestinal: Reports no additional gastrointestinal complaints, Denies abdominal pain, Denies diarrhea, Denies nausea and Denies vomiting Genitourinary: Genitourinary: Denies urinary incontinence Musculoskeletal: Musculoskeletal: Reports no additional musculoskeletal complaints, Denies back pain, Denies arthralgias, Denies joint swelling, Denies neck pain, Denies numbness and Denies tingling Integumentary/Breasts: Skin/Breast: Reports system reviewed and no additional complaints, except as docu and Denies rash Neurologic: Reports system reviewed and no additional complaints, except as documented, Denies Abnormal speech present, Denies dizziness, Denies headache(s), Denies numbness, Denies tingling and Denies weakness PMFSH Past Medical History Attestation statement: The following information was validated with the patient. Source: old records reviewed and nursing notes reviewed Medical History Asthma Social History Social History Household Members: Family Do you presently have visiting nurse or other home services: No Alcohol intake: current Alcohol intake frequency: holidays/special occasions only Patient Tobacco Use Status: Never used Tobacco Use of substances other than those prescribed or required for medical reasons: No Advance Directives: No Advance Directives Information Provided: Yes Physical Exam Vital Signs: Vital Signs: Last Vital Signs Temp 98.6 F 03/26/21 16:35 Pulse 100 03/26/21 18:59 Resp 20 03/26/21 16:35 BP 150/80 H 03/26/21 18:59 Pulse Ox 94 03/26/21 18:59 Body Mass Index 34.9 Const: General: cooperative, healthy appearing, comfortable and no acute distress Orientation/consciousness: patient oriented x3 Limitations: no limitations HENMT: Head: Yes normal to inspection Ears: hearing grossly normal bilaterally General nose exam: Normal external nose present Face and sinus: Yes normal facial exam Mouth: Normal oral and palatal mucosa present Throat: Yes posterior oropharynx normal Eyes: General: appearance normal, both eyes and all related structures Pupils: Equal, round and reactive pupils present Neck: Neck: Yes normal visual inspection Chest: Chest palpation & inspection: normal inspection of the chest Resp: Other: Inspiratory and expiratory wheezing throughout Effort & Inspection: normal respiratory effort Cardio: Rate: regular rate Rhythm: regular rhythm Peripheral pulses: Peripheral pulses 2+ throughout GI: Inspection: Yes normal to inspection Palpation (GI): Soft to palpation and nontender Auscultation: normal bowel sounds Back/Spine/Pelvis: Thoracic/Lumbar Spine: thoracic and lumbar spine normal to inspection Skin: General skin exam: no rashes or lesions noted Neuro: General: patient oriented x3, no focal motor deficits and normal sensation to monofilament Cranial nerves: Yes Equal, round and reactive pupils present Cognition (Neuro): normal cognition Speech: No Abnormal speech present Gait exam (Neuro): Normal gait present Motor exam (neuro): 5/5 motor strength present throughout Extrem: General: Yes normal to inspection, Yes no pedal edema and Yes no calf tenderness Course Course Course Narrative: 26-year-old male here with asthma symptoms times 24 hours. On exam has inspiratory and expiratory wheezing throughout. Stable vital signs. Will check chest x-ray, COVID screen, labs. Will give DuoNeb, Solu-Medrol and magnesium 1820-Continued wheezing. Will repeat nebulizer. 2000-patient feeling much improved. No wheezing. Oxygen saturation greater than 96% on room air. Chest x-ray shows a possible left upper lobe pneumonia. Will treat with course of antibiotics. No leukocytosis or fever. Patient well-appearing. Reviewed worrisome signs and symptoms of when to return to the emergency department. Comfortable discharge home. MDM - Asthma Differential Diagnosis Differential diagnosis: Likely Acute exacerbation and Pneumonia Medical Records Attestation: I reviewed the patient's medical records. Lab Data Attestation: I reviewed the patient's lab results. Result diagrams: 03/26/21 16:56 03/26/21 16:56 Labs: Lab Results 03/26/21 03/26/21 03/26/21 Range/Units 16:56 16:56 16:56 WBC 13.0 H (4.8-10.8) X10*3/uL RBC 5.16 (4.60-5.80) X10*6/uL Hgb 14.5 (14.0-18.0) g/dl Hct 41.2 L (42-52) % MCV 79.8 L (80-98) fL MCH 28.1 (27.0-33.0) pg MCHC 35.2 (31.0-36.0) g/dl RDW 12.2 (11.0-16.0) % Plt Count 318 (160-400) X10*3/uL MPV 9.6 (9.4-12.4) fL Immature Gran % (Auto) 0.3 (0.0-0.4) % Neut % (Auto) 53.3 (45-73) % Lymph % (Auto) 25.9 (20-40) % [place] % (Auto) 9.0 (2-11) % Eos % (Auto) 10.3 H (0-4) % Baso % (Auto) 1.2 (0-2) % Lymph # (Auto) 3.4 (1.2-4.9) X10*3/uL [place] # (Auto) 1.2 (0.1-1.2) X10*3/uL Eos # (Auto) 1.3 H (0.0-0.4) X10*3/uL Baso # (Auto) 0.2 (0.0-0.2) X10*3/uL Abs Immat Gran (auto) 0.04 H (0.00-0.03) X10*3/uL Absolute Neuts (auto) 6.9 (2.0-8.3) X10*3/uL Absolute Nucleated RBC 0.000 (0.0-0.012) X10*3/uL Nucleated RBC % (auto) 0.0 (0.0-0.2) /100WBC Sodium 138 (135-145) mmol/L Potassium 4.5 (3.3-5.1) mmol/L Chloride 106 (96-108) mmol/L Carbon Dioxide 23 (22-29) mmol/L Anion Gap 14 (12-20) BUN 8 L (9-16) mg/dL Creatinine 0.95 (0.5-1.4) mg/dL Estim Creat Clear Calc 123.9 Estimated GFR > 60 Random Glucose 95 D (60-115) mg/dL Calcium 9.3 (8.4-10.2) mg/dL COVID-19 ([facility]) Negative (Negative) COVID-19 Clin Com See Note Imaging Data Chest x-ray: Attestation: I personally reviewed and interpreted this imaging study as follows: Radiologist's impression: EXAMINATION: XR CHEST CLINICAL INFORMATION: Cough and shortness of breath COMPARISON: 02/19/2021 TECHNIQUE: 2 views of the chest were obtained. FINDINGS: The lungs are well expanded. Mild patchy left upper lobe suprahilar opacity. No pleural effusion. No pneumothorax. The cardiomediastinal silhouette is within normal limits. XR/XR chest 2V IMPRESSION: Left suprahilar airspace opacity may represent pneumonia. Follow-up to resolution. Procedures Procedure Narrative Procedure Narrative: Right ear flushed with saline for cerumen impaction with improvement Discharge Plan Discharge Clinical Impression: Pneumonia, Asthma with acute exacerbation Patient Disposition: Home, Self-Care Instructions: Asthma (ED), Bacterial Pneumonia (ED) Additional Instructions: STart prednisone tomorrow Prescriptions: New prednisone 20 mg tablet 40 mg PO DAILY Qty: 8 RF: 0 doxycycline monohydrate 100 mg capsule 100 mg PO BID Qty: 20 RF: 0 No Action fluticasone propion-salmeterol [Advair Diskus] 500-50 mcg/dose blister with device 1 puff inhalation BID RF: 0 montelukast 10 mg tablet 1 tab PO BEDTIME RF: 0 albuterol sulfate 90 mcg/actuation HFA aerosol inhaler 1 puff PO Q6H PRN (Reason: wheezing) RF: 0 azithromycin 500 mg tablet 500 mg PO DAILY Qty: 6 RF: 0 cefuroxime axetil 500 mg tablet 500 mg PO BID Qty: 12 RF: 0 prednisone 10 mg tablet 40 mg PO DAILY Qty: 16 RF: 0 albuterol sulfate 2.5 mg /3 mL (0.083 %) solution for nebulization 2.5 mg inhalation Q4-6H PRN (Reason: bronchospasm) 30 Days RF: 0 Referrals: Physician,None [Primary Care Provider] - 2 days Interventions: ED Discharge Assessment Last Done: 03/26/21 20:17 Discharge Date/Time: 03/26/21 20:17
[2021-03-26 17:29] LABS: Anion Gap 14 (12-20); Blood Urea Nitrogen 8 mg/dL (9-16); Calcium 9.3 mg/dL (8.4-10.2); Carbon Dioxide 23 mmol/L (22-29); Chloride 106 mmol/L (96-108); Creatinine Clr Calc Pharmacy 123.9; Estimated Glomerular Filt Rate > 60; Glucose Random 95 mg/dL (60-115); Potassium 4.5 mmol/L (3.3-5.1); Sodium 138 mmol/L (135-145)
[2021-03-26] MEDS: Albuterol/Iprat 2.5/0.5MG 3 ML AMPUL.NEB INHALE (17:45)
[2021-03-26 17:46] VITALS: PULSE 90; O2SAT 92
[2021-03-26 18:34] VITALS: PULSE 101
[2021-03-26] MEDS: Albuterol Sulfate (0.083%) 2.5 MG/3 ML VIAL.NEB 5 MG INHALE (18:34)
[2021-03-26 18:59] VITALS: BP 150/80; PULSE 100; O2SAT 94
== END 2021-03-26 20:17 | disposition home or self-care (01) ==
PROVIDERS: Nurse Practitioner Family; Emergency Provider Emergency Medicine
DX: J18.9 Pneumonia, unspecified organism (principal); J45.901 Unspecified asthma with (acute) exacerbation; Z79.899 Other long term (current) drug therapy; Z20.822 Contact with and (suspected) exposure to COVID-19
CPT/HCPCS: 36415; 71046; 80048; 85025; 87635; 94640; 96365; 96366; 96375; 99284; J2930; J3475

== ENCOUNTER 2021-04-02 01:22 | Emergency (ER) | payer MEDICAID, SELFPAY ==
--- NOTE | ~2021-04-02 | XR_ITS ---
EXAMINATION: XR CHEST CLINICAL INFORMATION: Shortness of breath COMPARISON: 03/26/2021 TECHNIQUE: Frontal view of the chest was obtained. FINDINGS: The lungs are well expanded. No edema or effusion. There is right infrahilar airspace opacity.. No pneumothorax. The cardiomediastinal silhouette is within normal limits. No acute osseous abnormality. XR/XR chest 1V IMPRESSION: Hazy opacity in the right infrahilar region which could represent atelectasis or pneumonia. Aspiration possible.
[2021-04-02 01:51] VITALS: BP 138/86; PULSE 101; RESP 20; TEMP 36.6; O2SAT 95; BMI 34.9
--- NOTE | 2021-04-02 02:23 | ED.ALLEREA ---
HPI - Allergic Reaction General Chief complaint: Allergic Reaction Stated complaint: allergic reaction Time Seen by Provider: 04/02/21 02:08 Source: patient Mode of arrival: ambulatory Limitations: no limitations History of Present Illness HPI narrative: 26-year-old male with history of asthma who presents emergency department for evaluation sensation of throat closing, shortness of breath and dyspnea on exertion. Patient states that about 1 hour prior to coming to the emergency department he felt a tightness in his throat had some difficulty swallowing. He also states that he felt short of breath. The patient was concerned that he was having allergic reaction. 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 He did not need any shrimp in the last 24 hours that he is aware of. The patient states that he had pneumonia approximately 1 week prior. He states that since then he has been having difficulty with his asthma. He was given a prescription for prednisone but he is not started this medication yet. States that he completed a dose of antibiotics as well. The patient denies rash or pruritus. Related Data Home Medications Medication Instructions Recorded Confirmed albuterol sulfate 90 mcg/actuation 1 puff PO Q6H PRN 02/19/21 02/19/21 aerosol inhaler fluticasone 500 mcg-salmeterol 50 1 puff INHALATION BID 02/19/21 02/19/21 mcg/dose blistr powdr for inhalation (Advair Diskus) montelukast 10 mg tablet 1 tab PO BEDTIME 02/19/21 02/19/21 Previous Rx's Medication Instructions Recorded albuterol sulfate 2.5 mg INHALATION Q4-6H PRN 30 02/20/21 Days ml azithromycin 500 mg tablet 500 mg PO DAILY #6 tab 02/20/21 cefuroxime axetil 500 mg tablet 500 mg PO BID #12 tab 02/20/21 prednisone 10 mg tablet 40 mg PO DAILY #16 tab 02/20/21 doxycycline monohydrate 100 mg 100 mg PO BID #20 cap 03/26/21 capsule prednisone 20 mg tablet 40 mg PO DAILY #8 tab 03/26/21 Allergies Allergy/AdvReac Type Severity Reaction Status Date / Time shellfish derived Allergy Severe SHORTNESS Verified 02/19/21 18:38 OF BREATH, SWELLING shrimp Allergy Severe ANAPHYLAXIS Verified 02/19/21 18:38 Review of Systems Review of Systems: Yes all other systems are reviewed and are negative [facility] Past Medical History [facility] Narrative: Social history: He denies tobacco, alcohol and drug use. Medical History Asthma Social History Social History Household Members: Family Do you presently have visiting nurse or other home services: No Alcohol intake: current Alcohol intake frequency: holidays/special occasions only Patient Tobacco Use Status: Never used Tobacco Advance Directives: No Advance Directives Information Provided: Yes Physical Exam Vital Signs: Vital Signs: Last Vital Signs Temp 97.9 F 04/02/21 01:51 Pulse 72 04/02/21 04:10 Resp 18 04/02/21 04:08 BP 120/56 L 04/02/21 04:10 Pulse Ox 95 04/02/21 04:08 Body Mass Index 34.9 Const: Other: The patient is pleasant and cooperative, he was talking in full sentences, he is having no difficulty handling his secretions however he is pointing to his throat and states that he feels like it is closing. HENMT: Head: Yes normal to inspection, Yes normocephalic and Yes atraumatic Ears: external ears normal General nose exam: Normal external nose present Face and sinus: Yes normal facial exam Mouth: Normal oral and palatal mucosa present Throat: Yes posterior oropharynx normal Eyes: General: appearance normal, both eyes and all related structures Pupils: Equal, round and reactive pupils present Neck: Neck: Yes normal visual inspection, Yes no lymphadenopathy, Yes trachea midline and Yes supple Chest: Chest palpation & inspection: normal inspection of the chest and normal palpation of entire chest wall Resp: Effort & Inspection: normal respiratory effort and able to speak in complete sentences Auscultation: clear to auscultation bilaterally Cardio: Rate: regular rate Rhythm: regular rhythm Heart sounds: S1 normal heart sound present, S2 normal heart sound present and no murmurs GI: Inspection: Yes normal to inspection Palpation (GI): Soft to palpation, nontender and no guarding Auscultation: normal bowel sounds : General: Yes no CVA tenderness Back/Spine/Pelvis: Back: no CVA tenderness Skin: General skin exam: no rashes or lesions noted Neuro: Cranial nerves: Yes CN's II-XII intact bilaterally and Yes Equal, round and reactive pupils present Cognition (Neuro): normal cognition Motor exam (neuro): 5/5 motor strength present throughout Extrem: General: Yes normal to inspection Psych: Appearance: grossly normal Speech and movement: Normal speech and movement present Affect: normal affect Attitude: cooperative Thought process: Normal thought process present Thought content: Normal thought content present Course Course Course Narrative: 26-year-old male who presents emergency department for evaluation of throat tightness which began 1 hour prior to coming to the emergency department. On his examination, the patient did not appear to be in distress and had no difficulty swallowing his secretions however he states that his symptoms similar to the symptoms that he gets when he gets exposed shrimp. The patient was treated with epinephrine 0.3 mg IM, Solu-Medrol 125 mg IV 25 mg IV, and Pepcid 20 mg IV. The patient will be kept on a cardiac and O2 saturation monitor for 4 hours in the event that he has a rebound reaction. 0645: The patient's laboratory evaluation was unremarkable. Chest x-ray is concerning for possible right-sided infiltrate however patient's symptoms are not consistent with pneumonia and I believe that this is probably residual from his pneumonia that he had 1 week prior. The patient felt significantly better after the above treatment. He states that he does have a 7 day course of prednisone that he was supposed to start yesterday and told to take this medication as prescribed by his doctor. Patient was discharged home. The patient was given verbal and printed instructions prior to discharge. The patient was advised to follow-up with his PCP in 2 days and to return to the emergency department if his symptoms get worse or if he develops any new symptoms that are concerning to him. MDM - Allergic Reaction Lab Data Result diagrams: 04/02/21 02:22 04/02/21 02:22 Labs: Lab Results 04/02/21 04/02/21 Range/Units 02:22 02:22 WBC 11.7 H (4.8-10.8) X10*3/uL RBC 5.32 (4.60-5.80) X10*6/uL Hgb 14.7 (14.0-18.0) g/dl Hct 42.3 (42-52) % MCV 79.5 L (80-98) fL MCH 27.6 (27.0-33.0) pg MCHC 34.8 (31.0-36.0) g/dl RDW 12.2 (11.0-16.0) % Plt Count 363 (160-400) X10*3/uL MPV 9.3 L (9.4-12.4) fL Immature Gran % (Auto) 0.3 (0.0-0.4) % Neut % (Auto) 43.5 L (45-73) % Lymph % (Auto) 35.8 (20-40) % [place] % (Auto) 8.7 (2-11) % Eos % (Auto) 10.3 H (0-4) % Baso % (Auto) 1.4 (0-2) % Lymph # (Auto) 4.2 (1.2-4.9) X10*3/uL [place] # (Auto) 1.0 (0.1-1.2) X10*3/uL Eos # (Auto) 1.2 H (0.0-0.4) X10*3/uL Baso # (Auto) 0.2 (0.0-0.2) X10*3/uL Abs Immat Gran (auto) 0.04 H (0.00-0.03) X10*3/uL Absolute Neuts (auto) 5.1 (2.0-8.3) X10*3/uL Absolute Nucleated RBC 0.000 (0.0-0.012) X10*3/uL Nucleated RBC % (auto) 0.0 (0.0-0.2) /100WBC Sodium 138 (135-145) mmol/L Potassium 4.2 (3.3-5.1) mmol/L Chloride 106 (96-108) mmol/L Carbon Dioxide 23 (22-29) mmol/L Anion Gap 13 (12-20) BUN 10 (9-16) mg/dL Creatinine 0.98 (0.5-1.4) mg/dL Estim Creat Clear Calc 120.1 Estimated GFR > 60 Random Glucose 107 (60-115) mg/dL Calcium 9.0 (8.4-10.2) mg/dL Total Bilirubin 0.3 (0.0-1.0) mg/dL AST 23 (5-37) U/L ALT 27 (0-40) U/L Alkaline Phosphatase 89 (39-117) U/L Total Protein 7.1 (6.5-8.0) g/dL Albumin 4.1 (3.5-5.0) g/dL Discharge Plan Discharge Clinical Impression: Allergic reaction Patient Disposition: Home, Self-Care Instructions: Allergies (ED) Additional Instructions: You were treated for a possible allergic reaction with epinephrine intramuscularly, Solu-Medrol 125 mg IV, Benadryl 25 mg IV and Pepcid 25 mg IV. Your laboratory evaluation was unremarkable. Your chest x-ray did reveal possible right-sided infiltrate/pneumonia however I think that this was consistent with your previous pneumonia and do not need antibiotics at this time. Sometimes it takes a little time for your chest x-ray to improve after you have had pneumonia. Take your prednisone as prescribed by your doctor. Follow-up with your doctor in 2 days. Please return to the emergency department if your symptoms get worse or if you develop any symptoms that are concerning to you. Prescriptions: No Action fluticasone propion-salmeterol [Advair Diskus] 500-50 mcg/dose blister with device 1 puff inhalation BID RF: 0 montelukast 10 mg tablet 1 tab PO BEDTIME RF: 0 albuterol sulfate 90 mcg/actuation HFA aerosol inhaler 1 puff PO Q6H PRN (Reason: wheezing) RF: 0 azithromycin 500 mg tablet 500 mg PO DAILY Qty: 6 RF: 0 cefuroxime axetil 500 mg tablet 500 mg PO BID Qty: 12 RF: 0 prednisone 10 mg tablet 40 mg PO DAILY Qty: 16 RF: 0 albuterol sulfate 2.5 mg /3 mL (0.083 %) solution for nebulization 2.5 mg inhalation Q4-6H PRN (Reason: bronchospasm) 30 Days RF: 0 prednisone 20 mg tablet 40 mg PO DAILY Qty: 8 RF: 0 doxycycline monohydrate 100 mg capsule 100 mg PO BID Qty: 20 RF: 0
[2021-04-02 02:27] LABS: MANUAL DIFF FLAG NO
[2021-04-02 02:29] LABS: Basophils Absolute Auto 0.2 X10*3/uL (0.0-0.2); Basophils Percent Auto 1.4 % (0-2); Eosinophils Absolute Auto 1.2 X10*3/uL (0.0-0.4); Eosinophils Percent Auto 10.3 % (0-4); Hematocrit 42.3 % (42-52); Hemoglobin 14.7 g/dl (14.0-18.0); Imm Gran Abs Auto 0.04 X10*3/uL (0.00-0.03); Imm Gran Pct Auto 0.3 % (0.0-0.4); Lymphocytes Absolute Auto 4.2 X10*3/uL (1.2-4.9); Lymphocytes Percent Auto 35.8 % (20-40); Mean Corpuscular HGB Conc 34.8 g/dl (31.0-36.0); Mean Corpuscular Hemoglobin 27.6 pg (27.0-33.0); Mean Corpuscular Volume 79.5 fL (80-98); Mean Platelet Volume 9.3 fL (9.4-12.4); Monocytes Percent Auto 8.7 % (2-11); Neutrophils Absolute Auto 5.1 X10*3/uL (2.0-8.3); Neutrophils Percent Auto 43.5 % (45-73); Platelet Count 363 X10*3/uL (160-400); Red Blood Count 5.32 X10*6/uL (4.60-5.80); Red Cell Distribution Width 12.2 % (11.0-16.0); White Blood Count 11.7 X10*3/uL (4.8-10.8)
[2021-04-02] MEDS: diphenhydrAMINE HCL 50 MG/ML VIAL 25 MG IVPUSH (02:30)
[2021-04-02] MEDS: Famotidine/PF 20 MG/2 ML VIAL IVPUSH (02:31)
[2021-04-02] MEDS: methylPREDNISolone Sod Succ 125 MG/2 ML VIAL IVPUSH (02:32)
--- NOTE | 2021-04-02 02:38 | PC.NURSE ---
PT MEDICATED PER MD ORDER FOR ASTHMA EXACERBATION AND POSSIBLE ALLERGIC REACTION. PRIOR TO [employer]OC[employer]ATE DIRECTOR OF SALES PT REPORTED FEELING SLIGHT IMPROVEMENT IN THROAT SENSATION PREVIOUSLY MENTIONED. PT IS NSR ON THE CARDIAC MONTIOR, WITH RESPIRATIONS BROWN AND UNLABORED. MD S TO BEDSIDE FOR PRIMARY EVALUATION EARLIER, PT AWARE OF AND AGREEABLE TO PLAN FOR LABS, ASSOCIATE DIRECTOR OF SALES AND RE-EVAL.
[2021-04-02 02:51] LABS: Alanine Aminotransferase 27 U/L (0-40); Albumin Level 4.1 g/dL (3.5-5.0); Alkaline Phosphatase 89 U/L (39-117); Anion Gap 13 (12-20); Aspartate Amino Transferase 23 U/L (5-37); Bilirubin Total 0.3 mg/dL (0.0-1.0); Blood Urea Nitrogen 10 mg/dL (9-16); Carbon Dioxide 23 mmol/L (22-29); Chloride 106 mmol/L (96-108); Creatinine Clr Calc Pharmacy 120.1; Estimated Glomerular Filt Rate > 60; Glucose Random 107 mg/dL (60-115); Potassium 4.2 mmol/L (3.3-5.1); Sodium 138 mmol/L (135-145); Total Protein 7.1 g/dL (6.5-8.0)
[2021-04-02] MEDS: Albuterol Sulfate (0.083%) 2.5 MG/3 ML VIAL.NEB 5 MG INHALE (02:55)
[2021-04-02 04:08] VITALS: BP 120/56; PULSE 74; RESP 18; O2SAT 95
[2021-04-02 04:10] VITALS: BP 120/56; PULSE 72
[2021-04-02] MEDS: EPINEPHrine 1 MG/ML VIAL 0.3 MG IM (04:10)
== END 2021-04-02 07:40 | disposition home or self-care (01) ==
PROVIDERS: Emergency Provider Emergency Medicine Emergency Medical Services
DX: T78.40XA Allergy, unspecified, initial encounter (principal); X58.XXXA Exposure to other specified factors, initial encounter; J45.901 Unspecified asthma with (acute) exacerbation; Z87.01 Personal history of pneumonia (recurrent)
CPT/HCPCS: 36415; 71045; 80053; 85025; 94640; 96372; 96374; 96375; 99284; J0171; J1200; J2930

== ENCOUNTER 2021-04-18 03:53 | Emergency (ER) | payer MEDICAID, SELFPAY ==
[2021-04-18 03:58] VITALS: BP 134/86; BP 155/104; PULSE 106; PULSE 108; RESP 20; TEMP 37.1; O2SAT 95; O2SAT 97; BMI 36.6
--- NOTE | 2021-04-18 04:22 | ED_ITS ---
HPI - Asthma General Chief Complaint: Asthma Stated Complaint: ASTHMA Time Seen by Provider: 04/18/21 04:15 Source: patient and EMS Mode of arrival: EMS Limitations: no limitations History of Present Illness HPI Narrative: Patient comes emergency room complaining of shortness of breath, asthma. Patient is well-known to our service for recurrent asthma exacerbations. EMS gave him Solu-Medrol, and a breathing treatment. MD complaint: asthma attack Related Data Home Medications Medication Instructions Recorded Confirmed albuterol sulfate 90 mcg/actuation 1 puff PO Q6H PRN 02/19/21 02/19/21 aerosol inhaler fluticasone 500 mcg-salmeterol 50 1 puff INHALATION BID 02/19/21 02/19/21 mcg/dose blistr powdr for inhalation (Advair Diskus) montelukast 10 mg tablet 1 tab PO BEDTIME 02/19/21 02/19/21 Previous Rx's Medication Instructions Recorded albuterol sulfate 2.5 mg INHALATION Q4-6H PRN 30 02/20/21 Days ml azithromycin 500 mg tablet 500 mg PO DAILY #6 tab 02/20/21 cefuroxime axetil 500 mg tablet 500 mg PO BID #12 tab 02/20/21 prednisone 10 mg tablet 40 mg PO DAILY #16 tab 02/20/21 doxycycline monohydrate 100 mg 100 mg PO BID #20 cap 03/26/21 capsule prednisone 20 mg tablet 40 mg PO DAILY #8 tab 03/26/21 Allergies Allergy/AdvReac Type Severity Reaction Status Date / Time shellfish derived Allergy Severe SHORTNESS Verified 02/19/21 18:38 OF BREATH, SWELLING shrimp Allergy Severe ANAPHYLAXIS Verified 02/19/21 18:38 Review of Systems Review of Systems: Constitutional : No Weight loss, No Fever, No Chills, No Night Sweats, No Fatigue, No Malaise ENT/Mouth : No Hearing loss, No Ear Pain, No Nasal Congestion, No Sinus Pain, No Hoarseness, No sore throat, No Rhinorrhea, No Swallowing Difficulty Eyes: No Eye Pain, No Swelling, No Redness, No Foreign Body, No Discharge, No Vision Changes Cardiovascular : No Chest Pain, No SOB, No Dyspnea on Exertion, No Orthopnea, No Edema, No Palpitations Respiratory complaining of a cough, wheezing, shortness of breath Gastrointestinal : No Nausea, No Vomiting, No Diarrhea, No Constipation, No abdominal Pain, No Hematochezia, No Melena Genitourinary : no irregular bleeding, No Dysuria, No Urinary Frequency, No Hematuria, No Urinary Incontinence, No Urgency, No Flank Pain, No Urinary Flow Changes, No Hesitancy Musculoskeletal : No joint pain, No Myalgias, No Joint Swelling Skin : No Skin Lesions, No rash Neuro : No Weakness, No Numbness, No Paresthesias, No Loss of Consciousness, No Dizziness, No Headache Psych : No Anxiety/Panic, No Depression, No SI/HI/AH/VH, No Social Issues, Heme/Lymph: No Bruising, No Bleeding,No Lymphadenopathy Endocrine : No Polyuria, No Polydipsia, No Temperature Intolerance [facility] Past Medical History Medical History Asthma Social History Social History Household Members: Family Do you presently have visiting nurse or other home services: No Alcohol intake: never Patient Tobacco Use Status: Never used Tobacco Use of substances other than those prescribed or required for medical reasons: No Advance Directives: No Advance Directives Information Provided: Yes Physical Exam Vital Signs: Vital Signs: Last Vital Signs Temp 99.0 F 04/18/21 08:08 Pulse 114 H 04/18/21 08:08 Resp 22 H 04/18/21 08:08 BP 138/90 H 04/18/21 08:08 Pulse Ox 93 04/18/21 08:08 Body Mass Index 36.6 Const: Other: Appearance: Alert. Oriented X3. Eyes: Pupils equal, round and reactive to light. ENT: Pharynx normal. Neck: Normal inspection. Neck supple. No lymph nodes noted. No crepitus CVS: Normal heart rate and rhythm. Pulses normal. Normal S1 and S2 Respiratory: Respiratory distress, bilateral wheezing, decreased air movement Abdomen: Soft and nontender. No rigidity. No distention. Skin: Skin warm and dry. Normal skin color. Normal skin turgor. Extremities: No lower extremity edema. No lower extremity edema. No Lacerations. No Rash Neuro: Oriented X 3. No motor deficit. No sensory deficit. Moving all extermities. No slurred speech. Course Course Course Narrative: After 2 treatments, patient's oxygen saturation is in the low 90s. Still wheezing. Patient states that he feels much better. At this time, recommended patient to get labs done, chest x-ray and to be admitted. Patient states that he has no one to look after his children, patient states that he will go home, take care of his kids, and return in the afternoon. Patient has enough albuterol at home. I discussed with him that if anything changes, new symptoms, worsening respiratory status he needs to return immediately to the emergency room. Patient will be leaving against medical advise Discharge Plan Discharge Clinical Impression: Asthma with acute exacerbation Patient Disposition: Left Against Medical Advice Instructions: Asthma (ED) Additional Instructions: Please follow-up with your primary care physician tomorrow. If you have any worsening or new symptoms, please return to the emergency room or call 911 Prescriptions: No Action fluticasone propion-salmeterol [Advair Diskus] 500-50 mcg/dose blister with device 1 puff inhalation BID RF: 0 montelukast 10 mg tablet 1 tab PO BEDTIME RF: 0 albuterol sulfate 90 mcg/actuation HFA aerosol inhaler 1 puff PO Q6H PRN (Reason: wheezing) RF: 0 azithromycin 500 mg tablet 500 mg PO DAILY Qty: 6 RF: 0 cefuroxime axetil 500 mg tablet 500 mg PO BID Qty: 12 RF: 0 prednisone 10 mg tablet 40 mg PO DAILY Qty: 16 RF: 0 albuterol sulfate 2.5 mg /3 mL (0.083 %) solution for nebulization 2.5 mg inhalation Q4-6H PRN (Reason: bronchospasm) 30 Days RF: 0 prednisone 20 mg tablet 40 mg PO DAILY Qty: 8 RF: 0 doxycycline monohydrate 100 mg capsule 100 mg PO BID Qty: 20 RF: 0
[2021-04-18] MEDS: Magnesium Sulfate/H2O 2 GM/50 ML PIGGYBACK IV (04:38)
[2021-04-18] MEDS: Albuterol Sulfate (0.083%) 2.5 MG/3 ML VIAL.NEB 10 MG INHALE ×2 (04:42→06:13)
[2021-04-18 04:43] VITALS: PULSE 96; O2SAT 92
[2021-04-18 06:14] VITALS: PULSE 92; O2SAT 92
[2021-04-18 06:26] VITALS: BP 143/79; PULSE 102; RESP 29; O2SAT 89
[2021-04-18 08:08] VITALS: BP 138/90; PULSE 114; RESP 22; TEMP 37.2; O2SAT 93
== END 2021-04-18 08:31 | disposition left against medical advice (07) ==
PROVIDERS: Emergency Provider Emergency Medicine
DX: J45.901 Unspecified asthma with (acute) exacerbation (principal); Z79.899 Other long term (current) drug therapy
CPT/HCPCS: 94644; 94645; 96365; 99284; J3475

== ENCOUNTER 2021-04-25 19:52 | Inpatient (IN) | payer MEDICAID, SELFPAY ==
--- NOTE | ~2021-04-25 | XR_ITS ---
EXAMINATION: XR CHEST CLINICAL INFORMATION: Shortness of breath COMPARISON: Frontal view 04/02/21 TECHNIQUE: Upright frontal portable view of the chest was obtained. FINDINGS: Devices overlie the patient. Cardiac size and yue are within normal limits. No alveolar edema. Multifocal patchy opacities in the left upper, mid and lower lung zone. Slightly prominent markings in the right lower lung. No pneumothorax. XR/XR chest 1V IMPRESSION: Multiple focal parenchymal opacities. Suspect multifocal pneumonia. These were not present on 04/02/21
[2021-04-25 20:30] VITALS: BP 132/73; PULSE 114; RESP 20; TEMP 39.1; O2SAT 97; BMI 36.6
[2021-04-25] MEDS: Albuterol/Iprat 2.5/0.5MG 3 ML AMPUL.NEB INHALE (21:01)
--- NOTE | 2021-04-25 21:05 | PC.NURSE ---
patient a&ox3, lungs diminished throughout, expiratory wheezing noted, rt called for updraft, will continue to monitor
[2021-04-25 21:06] VITALS: PULSE 115; O2SAT 97
--- NOTE | 2021-04-25 21:16 | ED.SOB ---
HPI - SOB/Dyspnea General Chief Complaint: Dyspnea Stated Complaint: ASTHMA Time Seen by Provider: 04/25/21 20:43 Source: patient Mode of arrival: EMS History of Present Illness HPI Narrative: This is a 26 years old known to this emergency department with history of asthma multiple emergency room visit presented to the ED by ambulance complaining of the wheezing and shortness of breath. He was given a bite AMS 125 mg of Solu-Medrol and yenifer OHNG elicited complaint: shortness of breath and asthma attack Pertinent past history: asthma Onset (ago): hour(s) (1) Timing: constant Severity: severe Relieving factors: bronchodilators Known history of: asthma Related Data Home oxygen amount: none Home Medications Medication Instructions Recorded Confirmed albuterol sulfate 90 mcg/actuation 1 puff PO Q6H PRN 02/19/21 02/19/21 aerosol inhaler fluticasone 500 mcg-salmeterol 50 1 puff INHALATION BID 02/19/21 02/19/21 mcg/dose blistr powdr for inhalation (Advair Diskus) montelukast 10 mg tablet 1 tab PO BEDTIME 02/19/21 02/19/21 Previous Rx's Medication Instructions Recorded albuterol sulfate 2.5 mg INHALATION Q4-6H PRN 30 02/20/21 Days ml azithromycin 500 mg tablet 500 mg PO DAILY #6 tab 02/20/21 cefuroxime axetil 500 mg tablet 500 mg PO BID #12 tab 02/20/21 prednisone 10 mg tablet 40 mg PO DAILY #16 tab 02/20/21 doxycycline monohydrate 100 mg 100 mg PO BID #20 cap 03/26/21 capsule prednisone 20 mg tablet 40 mg PO DAILY #8 tab 03/26/21 Allergies Allergy/AdvReac Type Severity Reaction Status Date / Time shellfish derived Allergy Severe SHORTNESS Verified 04/25/21 20:32 OF BREATH, SWELLING shrimp Allergy Severe ANAPHYLAXIS Verified 04/25/21 20:32 Review of Systems Review of Systems: Yes all other systems are reviewed and are negative Constitutional: Constitutional: Reports no additional constitutional complaints Eyes: Eyes: Reports no additional eye complaints ENT: Reports system reviewed and no additional complaints, except as documented Cardiovascular: Cardiovascular: Reports no additional cardiovascular complaints Gastrointestinal: Gastrointestinal: Reports no additional gastrointestinal complaints Neurologic: Reports system reviewed and no additional complaints, except as documented [facility] Past Medical History Medical History Asthma Social History Social History Household Members: Family Do you presently have visiting nurse or other home services: No Alcohol intake: never Patient Tobacco Use Status: Never used Tobacco Use of substances other than those prescribed or required for medical reasons: No Advance Directives: No Advance Directives Information Provided: Yes Physical Exam Vital Signs: Vital Signs: Last Vital Signs Temp 98.7 F 04/26/21 00:35 Pulse 94 04/26/21 00:35 Resp 18 04/26/21 00:35 BP 115/63 04/26/21 00:35 Pulse Ox 93 04/25/21 21:58 Oxygen Flow Rate 3 04/25/21 20:30 Body Mass Index 36.6 Const: General: cooperative and anxious HENMT: Other: Examination of the head eyes ears nose and throat is within normal Head: Yes normal to inspection General nose exam: Normal external nose present Face and sinus: Yes normal facial exam Mouth: Normal oral and palatal mucosa present Teeth and gingiva: dentition normal Neck: Neck: Yes normal visual inspection and Yes full ROM Chest: Chest palpation & inspection: normal inspection of the chest Resp: Effort & Inspection: able to speak in complete sentences and audible wheezes Auscultation: wheezes Cardio: Jugular venous distension: no JVD Rate: regular rate Rhythm: regular rhythm GI: Inspection: Yes normal to inspection Palpation (GI): Soft to palpation, nontender and no guarding Skin: General skin exam: no rashes or lesions noted Rashes: no rashes MDM - SOB/Dyspnea Lab Data Result diagrams: 04/25/21 21:44 04/25/21 21:44 Labs: Lab Results 04/25/21 04/25/21 04/25/21 Range/Units 21:44 21:44 21:44 WBC 5.0 (4.8-10.8) X10*3/uL RBC 5.41 (4.60-5.80) X10*6/uL Hgb 14.9 (14.0-18.0) g/dl Hct 42.3 (42-52) % MCV 78.2 L (80-98) fL MCH 27.5 (27.0-33.0) pg MCHC 35.2 (31.0-36.0) g/dl RDW 11.9 (11.0-16.0) % Plt Count 221 D (160-400) X10*3/uL MPV 9.4 (9.4-12.4) fL Immature Gran % (Auto) 0.6 H (0.0-0.4) % Neut % (Auto) 71.0 (45-73) % Lymph % (Auto) 24.6 (20-40) % [place] % (Auto) 3.6 (2-11) % Eos % (Auto) 0.0 (0-4) % Baso % (Auto) 0.2 (0-2) % Lymph # (Auto) 1.2 (1.2-4.9) X10*3/uL [place] # (Auto) 0.2 (0.1-1.2) X10*3/uL Eos # (Auto) 0.0 (0.0-0.4) X10*3/uL Baso # (Auto) 0.0 (0.0-0.2) X10*3/uL Abs Immat Gran (auto) 0.03 (0.00-0.03) X10*3/uL Absolute Neuts (auto) 3.6 (2.0-8.3) X10*3/uL Absolute Nucleated RBC 0.000 (0.0-0.012) X10*3/uL Nucleated RBC % (auto) 0.0 (0.0-0.2) /100WBC Sodium 134 L (135-145) mmol/L Potassium 3.9 (3.3-5.1) mmol/L Chloride 103 (96-108) mmol/L Carbon Dioxide 19 L (22-29) mmol/L Anion Gap 16 (12-20) BUN 11 (9-16) mg/dL Creatinine 0.98 (0.5-1.4) mg/dL Estim Creat Clear Calc 123.0 Estimated GFR > 60 Random Glucose 121 H (60-115) mg/dL Calcium 8.8 (8.4-10.2) mg/dL Total Bilirubin 0.6 (0.0-1.0) mg/dL AST 37 D (5-37) U/L ALT 30 (0-40) U/L Alkaline Phosphatase 68 D (39-117) U/L Total Protein 7.5 (6.5-8.0) g/dL Albumin 4.3 (3.5-5.0) g/dL COVID-19 ([facility]) Positive A (Negative) COVID-19 Clin Com See Note Imaging Data Chest x-ray: Radiologist's impression: Frontal view 04/02/21 TECHNIQUE: Upright frontal portable view of the chest was obtained. FINDINGS: Devices overlie the patient. Cardiac size and yue are within normal limits. No alveolar edema. Multifocal patchy opacities in the left upper, mid and lower lung zone. Slightly prominent markings in the right lower lung. No pneumothorax. XR/XR chest 1V IMPRESSION: Multiple focal parenchymal opacities. Suspect multifocal pneumonia. These were not present on 04/02/21 ? Critical Care Time Critical Care Time Critical Care Time: Yes Total Critical Care Time: 30 Attestation: hypoxia/pneumonia covid Discharge Plan Discharge Clinical Impression: Pneumonia due to 2019 novel coronavirus, Asthma, Hypoxia Patient Disposition: Admitted As Inpatient
[2021-04-25 21:57] LABS: MANUAL DIFF FLAG NO
[2021-04-25] MEDS: Acetaminophen 325 MG TABLET 650 MG PO (21:57)
[2021-04-25 21:58] VITALS: BP 139/84; PULSE 113; RESP 18; TEMP 37.9; O2SAT 93
[2021-04-25 21:58] LABS: Basophils Percent Auto 0.2 % (0-2); Hematocrit 42.3 % (42-52); Hemoglobin 14.9 g/dl (14.0-18.0); Imm Gran Abs Auto 0.03 X10*3/uL (0.00-0.03); Imm Gran Pct Auto 0.6 % (0.0-0.4); Lymphocytes Absolute Auto 1.2 X10*3/uL (1.2-4.9); Lymphocytes Percent Auto 24.6 % (20-40); Mean Corpuscular HGB Conc 35.2 g/dl (31.0-36.0); Mean Corpuscular Hemoglobin 27.5 pg (27.0-33.0); Mean Corpuscular Volume 78.2 fL (80-98); Mean Platelet Volume 9.4 fL (9.4-12.4); Monocytes Absolute Auto 0.2 X10*3/uL (0.1-1.2); Monocytes Percent Auto 3.6 % (2-11); Neutrophils Absolute Auto 3.6 X10*3/uL (2.0-8.3); Platelet Count 221 X10*3/uL (160-400); Red Blood Count 5.41 X10*6/uL (4.60-5.80); Red Cell Distribution Width 11.9 % (11.0-16.0)
[2021-04-25 22:06] LABS: COVID-19 Test Positive (Negative)
[2021-04-25 22:17] LABS: Alanine Aminotransferase 30 U/L (0-40); Albumin Level 4.3 g/dL (3.5-5.0); Alkaline Phosphatase 68 U/L (39-117); Anion Gap 16 (12-20); Aspartate Amino Transferase 37 U/L (5-37); Bilirubin Total 0.6 mg/dL (0.0-1.0); Blood Urea Nitrogen 11 mg/dL (9-16); Calcium 8.8 mg/dL (8.4-10.2); Carbon Dioxide 19 mmol/L (22-29); Chloride 103 mmol/L (96-108); Estimated Glomerular Filt Rate > 60; Glucose Random 121 mg/dL (60-115); Potassium 3.9 mmol/L (3.3-5.1); Sodium 134 mmol/L (135-145); Total Protein 7.5 g/dL (6.5-8.0)
--- NOTE | 2021-04-25 23:18 | PM.IMHP ---
History of Present Illness Date of Service: 04/25/21 Chief Complaint: SOB 26-year-old male with past medical history of asthma presents to the hospital with complaints of shortness of breath for past 1 day. Patient reports some cough, and sputum production, no fever or chills, no chest pain, patient is returning from [place] but is unaware of any sick contacts. Patient on vaccinated against COVID-19. He denies any abdominal pain nausea or vomiting, no diarrhea constipation, no urinary symptoms and no lower extremity edema. All other review of system negative. Significant for temp of 102.4?, heart rate of 114, respiratory rate of 20, blood pressure 132/73, satting 88% on room air, patient is currently on 3 L of oxygen satting 97% Labs are significant for WBC count of 5, sodium 134, otherwise unremarkable, COVID-19 positive Chest x-ray shows multiple focal parenchymal opacities, suspect multifocal pneumonia Patient will be admitted for further management Review of Systems Review of Systems: Yes all other systems are reviewed and are negative FOR[facility]LY [facility] Medical History (Updated 04/26/21 @ 06:20 by Sharlene Rodriguez MD) Asthma Family History (Updated 04/26/21 @ 06:19 by Sharlene Rodriguez MD) Mother Asthma Surgical History (Updated 04/26/21 @ 06:19 by Sharlene Rodriguez MD) No significant past surgical history Social History Household Members: Family Do you presently have visiting nurse or other home services: No Alcohol intake: never Patient Tobacco Use Status: Never used Tobacco Use of substances other than those prescribed or required for medical reasons: No Advance Directives: No Advance Directives Information Provided: Yes Meds Allergies Allergy/AdvReac Type Severity Reaction Status Date / Time shellfish derived Allergy Severe SHORTNESS Verified 04/25/21 20:32 OF BREATH, SWELLING shrimp Allergy Severe ANAPHYLAXIS Verified 04/25/21 20:32 Home Medications Medication Instructions Recorded Confirmed Last Taken Type albuterol sulfate 90 mcg/actuation 1 puff PO Q6H PRN 02/19/21 02/19/21 Unknown History aerosol inhaler fluticasone 500 mcg-salmeterol 50 1 puff INHALATION BID 02/19/21 02/19/21 02/19/21 History mcg/dose blistr powdr for inhalation (Advair Diskus) montelukast 10 mg tablet 1 tab PO BEDTIME 02/19/21 02/19/21 02/18/21 History Physical Exam Vital Signs and Narrative: Vital Signs: Last Vital Signs Temp 100.2 F 04/25/21 21:58 Pulse 113 H 04/25/21 21:58 Resp 18 04/25/21 21:58 BP 139/84 04/25/21 21:58 Pulse Ox 93 04/25/21 21:58 Oxygen Flow Rate 3 04/25/21 20:30 Body Mass Index 36.6 Const: Other: Patient sitting in bed appears comfortable General: cooperative and no acute distress Orientation/consciousness: patient oriented x3 Eyes: General: appearance normal, both eyes and all related structures Resp: Other: Rhonchi bilaterally Effort & Inspection: normal respiratory effort Cardio: Rate: regular rate Rhythm: regular rhythm GI: Palpation (GI): Soft to palpation Auscultation: normal bowel sounds Skin: General skin exam: no rashes or lesions noted Neuro: General: patient oriented x3 Cognition (Neuro): normal cognition Extrem: General: Yes normal to inspection and Yes no pedal edema Results Labs CBC and Chem 7: 04/25/21 21:44 04/25/21 21:44 Labs: Laboratory Results - last 24 hr 04/25/21 04/25/21 04/25/21 21:44 21:44 21:44 MCV 78.2 L MCH 27.5 MCHC 35.2 RDW 11.9 Plt Count 221 D MPV 9.4 Immature Gran % (Auto) 0.6 H Neut % (Auto) 71.0 Lymph % (Auto) 24.6 [place] % (Auto) 3.6 Eos % (Auto) 0.0 Baso % (Auto) 0.2 Lymph # (Auto) 1.2 [place] # (Auto) 0.2 Eos # (Auto) 0.0 Baso # (Auto) 0.0 Abs Immat Gran (auto) 0.03 Absolute Neuts (auto) 3.6 Absolute Nucleated RBC 0.000 Nucleated RBC % (auto) 0.0 Anion Gap 16 Estim Creat Clear Calc 123.0 Estimated GFR > 60 Random Glucose 121 H Calcium 8.8 Total Bilirubin 0.6 AST 37 D ALT 30 Alkaline Phosphatase 68 D Total Protein 7.5 Albumin 4.3 COVID-19 ([facility]IAN) Positive A COVID-19 Clin Com See Note Imaging Radiologist's Impressions: Impressions Chest X-Ray 04/25/21 21:20 IMPRESSION: Multiple focal parenchymal opacities. Suspect multifocal pneumonia. These were not present on 04/02/21 Assessment and Plan (1) Pneumonia due to 2019 novel coronavirus: Status: Acute (2) Asthma: Status: Acute (3) Acute respiratory failure with hypoxia: Status: Acute 26-year-old male with past medical history of asthma presents to the hospital with shortness of breath found to be COVID 19 positive # acute hypoxic respiratory failure - secondary to COVID-19 pneumonia - patient on 3 L of O2 - titrate O2 as tolerated - monitor respiratory status # COVID-19 pneumonia - patient on vaccinated and was recently traveling - currently requiring about 3 L of oxygen - will start him on dexamethasone - monitor respiratory status # asthma exacerbation - will start him on dexamethasone - breathing treatments including scheduled and p.r.n. DVT prophylaxis: Heparin subQ Quality Stroke Does the patient have a stroke diagnosis?: No VTE Prior VTE?: No VTE Risk Level:: Medical - moderate - high VTE Device Contraindication: Treatment Not Indicated VTE Drug Contraindication: N/A - Med Ordered
[2021-04-26 00:35] VITALS: BP 115/63; PULSE 94; RESP 18; TEMP 37.1
[2021-04-26] MEDS: Heparin Sodium,Porcine 5,000 UNIT/ML VIAL 5000 UNIT SUBCUT ×2 (00:36→11:28)
[2021-04-26 05:25] VITALS: BP 118/61; PULSE 72; RESP 16; TEMP 36.6; O2SAT 96
[2021-04-26 06:00] VITALS: BP 137/71; PULSE 81; RESP 16; O2SAT 98
[2021-04-26 08:10] LABS: Hematocrit 43.4 % (42-52); Imm Gran Abs Auto 0.01 X10*3/uL (0.00-0.03); Imm Gran Pct Auto 0.4 % (0.0-0.4); Lymphocytes Absolute Auto 0.8 X10*3/uL (1.2-4.9); Lymphocytes Percent Auto 31.7 % (20-40); MANUAL DIFF FLAG SCAN; Mean Corpuscular HGB Conc 34.6 g/dl (31.0-36.0); Mean Corpuscular Hemoglobin 27.4 pg (27.0-33.0); Mean Corpuscular Volume 79.2 fL (80-98); Mean Platelet Volume 9.5 fL (9.4-12.4); Monocytes Absolute Auto 0.2 X10*3/uL (0.1-1.2); Neutrophils Absolute Auto 1.6 X10*3/uL (2.0-8.3); Neutrophils Percent Auto 61.9 % (45-73); Platelet Count 265 X10*3/uL (160-400); Red Blood Count 5.48 X10*6/uL (4.60-5.80); Red Cell Distribution Width 11.9 % (11.0-16.0); SCAN SMEAR FLAG 1; White Blood Count 2.7 X10*3/uL (4.8-10.8)
[2021-04-26 08:29] LABS: Anion Gap 14 (12-20); Blood Urea Nitrogen 11 mg/dL (9-16); Calcium 9.3 mg/dL (8.4-10.2); Carbon Dioxide 22 mmol/L (22-29); Chloride 103 mmol/L (96-108); Creatinine Clr Calc Pharmacy 138.5; Estimated Glomerular Filt Rate > 60; Glucose Random 170 mg/dL (60-115); Sodium 133 mmol/L (135-145)
[2021-04-26 08:30] LABS: Potassium 6.2 mmol/L (3.3-5.1)
[2021-04-26 09:00] LABS: SLIDE REVIEW VERIFIED
[2021-04-26] MEDS: dexAMETHasone sod phosphate 4 MG/ML VIAL 6 MG IVPUSH (11:27)
--- NOTE | 2021-04-26 11:37 | P.PNIM_ITS ---
Subjective Subjective Date of Service: 04/26/21 Interval History: The patient was seen and evaluated this morning Laying in bed, feels some improvement Denies any fever, chills blood having dyspnea on exertion No reported other overnight events. Systemic review: No fever, chills generalized weakness No chest pain, palpitation Improvement in shortness of breath No abdominal pain, nausea or vomiting No urinary symptoms No any rash or wounds Physical Exam Vital Signs: Vital Signs: Last Vital Signs Temp 97.8 F 04/26/21 05:25 Pulse 81 04/26/21 06:00 Resp 16 04/26/21 06:00 BP 137/71 04/26/21 06:00 Pulse Ox 98 04/26/21 06:00 Oxygen Flow Rate 3 04/25/21 20:30 Body Mass Index 36.6 Const: Other: Constitutional : Alert, oriented Neck : Normal inspection, Supple Cardiovascular : Regular rhythm, no lower extremity edema Respiratory : Chest wall moving bilaterally, not in expiratory distress Gastrointestinal: soft, lax, Non tender Skin : Warm, Dry Neurological : Alert & oriented x3, No focal deficit Objective Data Active Medications Acetaminophen (Acetaminophen 325 Mg Tablet) 650 mg PO Q6H PRN PRN Reason: Pain, Mild (Pain Scale 1-3) Albuterol/Ipratropium (Albuterol/Iprat 2.5/0.5mg 3 Ml Ampul.Neb) 3 ml INHALE RQ4H WHILE AWAKE [facility] Last Admin: 04/26/21 10:36 Dose: Not Given Documented by: GENIE Non-Admin Reason: See Note Albuterol/Ipratropium (Albuterol/Iprat 2.5/0.5mg 3 Ml Ampul.Neb) 3 ml INHALE RQ4H PRN PRN Reason: Shortness of Breath/Wheezing Dexamethasone Sodium Phosphate (Dexamethasone Sod Phosphate 4 Mg/Ml Vial) 6 mg IVPUSH DAILY [facility] Docusate Sodium (Docusate Sodium 100 Mg Capsule) 100 mg PO DAILY PRN PRN Reason: Constipation Heparin Sodium (Porcine) (Heparin Sodium,Porcine 5,000 Unit/Ml Vial) 5,000 unit SUBCUT Q12H [facility] Last Admin: 04/26/21 00:36 Dose: 5,000 unit Documented by: JUNG Ondansetron HCl (Ondansetron Hcl 4 Mg/2 Ml Vial) 4 mg IVPUSH Q8H PRN PRN Reason: Nausea and Vomiting Sodium Chloride (0.9 % Sodium Chloride Flush 3 Ml Syringe) 3 ml IVFLUSH QSHIFT ENRIKE Last Admin: 04/26/21 00:41 Dose: Not Given Documented by: JUNG Non-Admin Reason: Med Not Available Labs CBC & Chem 7: 04/26/21 07:23 04/26/21 07:23 Labs: Laboratory Results - last 24 hr 04/25/21 04/25/21 04/25/21 21:44 21:44 21:44 MCV 78.2 L MCH 27.5 MCHC 35.2 RDW 11.9 Plt Count 221 D MPV 9.4 Immature Gran % (Auto) 0.6 H Neut % (Auto) 71.0 Lymph % (Auto) 24.6 [place] % (Auto) 3.6 Eos % (Auto) 0.0 Baso % (Auto) 0.2 Lymph # (Auto) 1.2 [place] # (Auto) 0.2 Eos # (Auto) 0.0 Baso # (Auto) 0.0 Abs Immat Gran (auto) 0.03 Absolute Neuts (auto) 3.6 Absolute Nucleated RBC 0.000 Nucleated RBC % (auto) 0.0 Smear Tech's Comments Anion Gap 16 Estim Creat Clear Calc 123.0 Estimated GFR > 60 Random Glucose 121 H Calcium 8.8 Total Bilirubin 0.6 AST 37 D ALT 30 Alkaline Phosphatase 68 D Total Protein 7.5 Albumin 4.3 COVID-19 ([facility]) Positive A COVID-19 Clin Com See Note 04/26/21 04/26/21 07:23 07:23 MCV 79.2 L MCH 27.4 MCHC 34.6 RDW 11.9 Plt Count 265 MPV 9.5 Immature Gran % (Auto) 0.4 Neut % (Auto) 61.9 Lymph % (Auto) 31.7 [place] % (Auto) 6.0 Eos % (Auto) 0.0 Baso % (Auto) 0.0 Lymph # (Auto) 0.8 L [place] # (Auto) 0.2 Eos # (Auto) 0.0 Baso # (Auto) 0.0 Abs Immat Gran (auto) 0.01 Absolute Neuts (auto) 1.6 L Absolute Nucleated RBC 0.000 Nucleated RBC % (auto) 0.0 Smear Tech's Comments VERIFIED Anion Gap 14 Estim Creat Clear Calc 138.5 Estimated GFR > 60 Random Glucose 170 H D Calcium 9.3 Total Bilirubin AST ALT Alkaline Phosphatase Total Protein Albumin COVID-19 ([facility]) COVID-19 Clin Com Assessment and Plan (1) Acute respiratory failure with hypoxia: Status: Acute (2) Pneumonia due to 2019 novel coronavirus: Status: Acute (3) Asthma: Status: Acute Assessment and Plan: 26-year-old male with past medical history of asthma presents to the hospital with shortness of breath found to be COVID 19 positive # acute hypoxic respiratory failure # secondary to COVID-19 pneumonia Feels little bit better Wean oxygen down as tolerated Continue dexamethasone day 2 monitor respiratory status Follow blood work and infection markers # asthma exacerbation Continue dexamethasone breathing treatments including scheduled and p.r.n. DVT prophylaxis Heparin subQ Quality Stroke Does the patient have a stroke diagnosis?: No VTE Prior VTE?: No VTE Risk Level:: Medical - moderate - high VTE Device Contraindication: Treatment Not Indicated VTE Drug Contraindication: N/A - Med Ordered
[2021-04-26] MEDS: 0.9 % Sodium Chloride Flush 3 ML SYRINGE IVFLUSH ×2 (11:42→19:54)
[2021-04-26 14:36] VITALS: BP 125/67; PULSE 88; TEMP 36.9; O2SAT 96
--- NOTE | 2021-04-26 14:39 | PC.NURSE ---
called go give report rn will call back once she has a discharge
--- NOTE | 2021-04-26 14:44 | PC.NURSE ---
PT HAS DONE WELL TODAY DENIES SOB, PLACED ON RA AROUND NOON STATS MAINTAINED AT 96% PT DENIES ANY SOB, TOLERATING PO. NEEDS BEING MET
--- NOTE | 2021-04-26 17:35 | PC.NURSE ---
report given to Kindra on IMC
--- NOTE | 2021-04-26 17:36 | PC.NURSE ---
pt has aox4, amb with steady gait. removed o2 aroud noon, stats have maintained at 96% pt denies and sob, tolerating po, needs have been met throughout day
[2021-04-26 17:53] VITALS: BP 153/75; PULSE 89; RESP 20; TEMP 36.6; O2SAT 97
[2021-04-26 19:08] VITALS: BP 126/55; PULSE 85; RESP 20; TEMP 36.7; O2SAT 97
[2021-04-26] MEDS: Albuterol Sulfate 90 MCG 8 GM INHALER 2 PUFF INHALE (21:21)
[2021-04-27] VITALS: BP 136/62; PULSE 84; RESP 20; TEMP 36.8; O2SAT 97
[2021-04-27] MEDS: Heparin Sodium,Porcine 5,000 UNIT/ML VIAL 5000 UNIT SUBCUT (01:22)
[2021-04-27 03:40] VITALS: BP 118/68; PULSE 75; RESP 18; TEMP 37.1; O2SAT 93
[2021-04-27 07:10] LABS: Hematocrit 44.4 % (42-52); Hemoglobin 14.9 g/dl (14.0-18.0); Mean Corpuscular HGB Conc 33.6 g/dl (31.0-36.0); Mean Corpuscular Hemoglobin 26.9 pg (27.0-33.0); Mean Corpuscular Volume 80.3 fL (80-98); Mean Platelet Volume 9.8 fL (9.4-12.4); Platelet Count 309 X10*3/uL (160-400); Red Blood Count 5.53 X10*6/uL (4.60-5.80); Red Cell Distribution Width 11.9 % (11.0-16.0); White Blood Count 7.7 X10*3/uL (4.8-10.8)
[2021-04-27 07:52] LABS: C Reactive Protein 1.32 mg/dL (< or = 0.50); Lactate Dehydrogenase 257 U/L (118-273)
[2021-04-27 07:57] VITALS: BP 136/71; PULSE 88; RESP 18; TEMP 36.8; O2SAT 95
[2021-04-27 08:09] LABS: Anion Gap 14 (12-20); Blood Urea Nitrogen 18 mg/dL (9-16); Calcium 9.1 mg/dL (8.4-10.2); Carbon Dioxide 23 mmol/L (22-29); Chloride 103 mmol/L (96-108); Creatinine Clr Calc Pharmacy 135.4; Estimated Glomerular Filt Rate > 60; Glucose Random 98 mg/dL (60-115); Potassium 4.2 mmol/L (3.3-5.1); Sodium 136 mmol/L (135-145)
--- NOTE | 2021-04-27 08:30 | MHC.CM.PN ---
PT ADMITTED WITH COVID-19. CM ATTEMPTED TO CONTACT PT VIA CELL PHONE NUMBER LISTED [phone], BUSY SIGNAL. CM ATTEMPTED TO CONTACT PT VIA ROOM EXT [phone]. PT DOES NOT ANSWER. CRM FUNCTIONAL ANALYST COMPLETED USING EMR. PT APPEARS TO BE FULLY INDEPENDENT AT BASELINE WITH NO DME OR SERVICES. PT DOES NOT HAVE A HCP ON FILE. [facility] LISTED FOR PCP. CM DID ATTEMPT TO CALL OFFICE ([phone]) HOWEVER COULD NOT CONTINUE CALL AFTER LENGTHY HOLD. CURRENT DC PLAN IS HOME WITH NO SERVICES PT TO ARRANGE TRANSPORTATION
--- NOTE | 2021-04-27 09:59 | P.CDIC_ITS ---
CDI Concurrent Query Documentation Clarification: PHYSICIAN'S DOCUMENTATION REQUEST Date of Query: 04/27/21 1000 Patient Name: Ian Garza Admit Date: 04/25/21 Dear Doctor, A review of the medical record indicates additional documentation may be needed. Please review below and update the documentation accordingly. Viral Sepsis due to Covid-19/Pneumonia with acute hypoxic respiratory failure Covid-19 Pneumonia with acute hypoxic respiratory failure Other, please specify if known or undetermined Risk Factors/Clinical Indicators/Treatments Temp 102.4 RR 20 HR 114 Sat 88% RA 3 liters oxygen satting to 97%. ED: hypoxia, SOB, cough, sputum. IV fluids, Dexamethasone, Albuterol, Oxygen Recognized standard criteria for this condition and other infectious definitions includes: Sepsis Systemic manifestations of infection, with 2 or more SIRS criteria which include: * Fever > 100.4?F or hypothermia < 96.8?F * Leukocytosis ? WBC > 12,000 or leukopenia, WBC < 4,000, or > 10% bands * Tachycardia- > 90 beats/minute * Tachypnea- RR > 20 breaths/minute or PaCO2 < 32mmHg Source: Merck Manual 2013 Documentation should include the known or suspected organism, and the underlying infection, such as UTI or pneumonia, Covid-19. Severe Sepsis Sepsis with associated acute organ dysfunction, such as renal or respiratory failure Documentation should indicate the association between the sepsis and the organ dysfunction Based on the above information and the recognized standard for sepsis, could you please clarify in the Progress Notes if this diagnoses is still accurate and reflective of the patient's condition to ensure quality of the medical record. * Sepsis is/was present and is a clinical diagnosis based on (please include this additional support in the medical record) * After study (the condition) has been ruled out * Other (please specify) * Unable to determine Use of terms such as suspected, likely, concern for, or probable (associated with a specific diagnosis that is being evaluated, monitored, or treated as if it exists) are acceptable and can be coded in the inpatient setting, when documented at the time of discharge. Thank you, Mily Shipley [facility], CDIS Extension: [phone] Please use your independent medical judgment in providing your response. THIS QUERY IS PART OF THE PERMANENT MEDICAL RECORD Provider Response: Other Other Diagnosis: Viral sepsis secondary to COVID-19 infection with acute hypoxic respiratory failure
[2021-04-27] MEDS: dexAMETHasone sod phosphate 4 MG/ML VIAL 6 MG IVPUSH (10:06)
[2021-04-27] MEDS: 0.9 % Sodium Chloride Flush 3 ML SYRINGE IVFLUSH (10:06)
[2021-04-27 11:10] LABS: Glucose, Whole Blood 184 mg/dL (60-115)
--- NOTE | 2021-04-27 11:59 | MHC.CM.PN ---
Patient has been medically cleared for dc to home today, no services.
--- NOTE | 2021-04-27 11:59 | PM.DS ---
DS: Providers Provider Date of Service: 04/27/21 Date of admission: 04/25/21 23:17 Primary care physician: [facility] DS: Diagnosis Discharge Diagnosis (1) Acute respiratory failure with hypoxia: Status: Acute (2) Pneumonia due to 2019 novel coronavirus: Status: Acute (3) Asthma: Status: Acute (4) Viral sepsis: Status: Acute DS: Summary Hospital Course Hospital Course: Admission note HPI 26-year-old male with past medical history of asthma presents to the hospital with complaints of shortness of breath for past 1 day.? Patient reports some cough, and sputum production, no fever or chills, no chest pain, patient is returning from [place] but is unaware of any sick contacts.? Patient on vaccinated against COVID-19.? He denies any abdominal pain nausea or vomiting, no diarrhea constipation, no urinary symptoms and no lower extremity edema.? All other review of system negative. Significant for temp of 102.4?, heart rate of 114, respiratory rate of 20, blood pressure 132/73, satting 88% on room air, patient is currently on 3 L of oxygen satting 97% Labs are significant for WBC count of 5, sodium 134, otherwise unremarkable, COVID-19 positive Chest x-ray shows multiple focal parenchymal opacities, suspect multifocal pneumonia Hospital course Patient was admitted to the hospital for evaluation of difficulty breathing. Found to be hypoxic at 88% in the emergency. X-ray and blood work were consistent with COVID-19 infection. Patient was admitted and started treatment with IV dexamethasone and oxygen supplement. He was able to be weaned off the oxygen ambulate in the room with no reported shortness of breath. To be discharged home to finish course of 10 days of dexamethasone. Advised for self isolation for at least 4 days to 1 week as his symptoms has been on for almost a week now. Time Spent with Patient Time attestation: Total time spent providing and/or coordinating discharge services: Discharge coordination time: Greater than 30 minutes Quality: Stroke Does the patient have a stroke diagnosis?: No Physical Exam Vital Signs: Vital Signs: Last Vital Signs Temp 98.3 F 04/27/21 07:57 Pulse 88 04/27/21 07:57 Resp 18 04/27/21 07:57 BP 136/71 04/27/21 07:57 Pulse Ox 95 04/27/21 07:57 Oxygen Flow Rate 3 04/25/21 20:30 Body Mass Index 36.6 Const: Other: Constitutional : Alert, oriented, not in distress Neck : Normal inspection, Supple Cardiovascular : RRR, S1 S2, no lower extremity edema Respiratory : Good bilateral air entry, no crackles, wheezes or rhonchi Gastrointestinal: soft, lax, Normal bowel sounds, Non tender Skin : Warm, Dry Neurological : Alert & oriented x3, No focal deficit DS: Data Data Completed and Pending Labs on day of discharge: Laboratory Results - last 24 hr 04/27/21 04/27/21 04/27/21 06:08 06:08 06:08 WBC 7.7 RBC 5.53 Hgb 14.9 Hct 44.4 MCV 80.3 MCH 26.9 L MCHC 33.6 RDW 11.9 Plt Count 309 MPV 9.8 Absolute Nucleated RBC 0.000 Nucleated RBC % (auto) 0.0 Sodium 136 Potassium 4.2 D Chloride 103 Carbon Dioxide 23 Anion Gap 14 BUN 18 H D Creatinine 0.89 Estim Creat Clear Calc 135.4 Estimated GFR > 60 POC Glucose Random Glucose 98 D Calcium 9.1 Lactate Dehydrogenase 257 C-Reactive Protein 1.32 H 04/27/21 11:02 WBC RBC Hgb Hct MCV MCH MCHC RDW Plt Count MPV Absolute Nucleated RBC Nucleated RBC % (auto) Sodium Potassium Chloride Carbon Dioxide Anion Gap BUN Creatinine Estim Creat Clear Calc Estimated GFR POC Glucose 184 H Random Glucose Calcium Lactate Dehydrogenase C-Reactive Protein Discharge Plan Discharge Patient Disposition: Home, Self-Care Discharge Diagnosis: COVID-19 infection Referrals: [facility] [Primary Care Provider] - 1 Week Discharge Medications: New dexamethasone 6 mg tablet 6 mg PO DAILY Qty: 7 RF: 0 Continued albuterol sulfate 90 mcg/actuation HFA aerosol inhaler 1 puff PO Q6H PRN (Reason: wheezing) RF: 0 albuterol sulfate 2.5 mg /3 mL (0.083 %) solution for nebulization 2.5 mg inhalation Q4-6H PRN (Reason: bronchospasm) 30 Days RF: 0 Discharge Orders: Discharge Order (Routine); Ordered 04/27/21 Ordered By: Mame Lynn Diet: advance to usual diet Activity on Discharge: As tolerated Stand Alone Forms: Patient Portal Discharge page Care Plan Goals: Read below Health Concerns: Read below Plan of Treatment: You were admitted to the hospital for evaluation of low oxygen level as a result of COVID-19 infection. Your treated with IV steroids with fair response as you were taken off the oxygen and been able to ambulate. Assessment: Continue dexamethasone for 1 more week Self isolate for the next 4 days to 1 week Come back to the hospital for any worsening shortness of breath
[2021-04-27 12:00] VITALS: BP 127/65; PULSE 80; RESP 16; TEMP 36.9; O2SAT 97
== END 2021-04-27 13:45 | disposition home or self-care (01) | DRG 720 ==
LOC: HO.ED 23:03 → HO.EDOVER 23:31 → HO.IMC 04-26 14:20
PROVIDERS: Admitting Provider Internal Medicine; Emergency Provider Emergency Medicine; Visit Provider Student in an Organized Health Care Education/Training Program
DX: A41.89 Other specified sepsis (principal); U07.1 COVID-19; J96.01 Acute respiratory failure with hypoxia; J12.82 Pneumonia due to coronavirus disease 2019; J45.909 Unspecified asthma, uncomplicated; J45.901 Unspecified asthma with (acute) exacerbation; Z79.899 Other long term (current) drug therapy
CPT/HCPCS: 36415; 71045; 80048; 80053; 82947; 83615; 85025; 85027; 86140; 87635; 94640; 99285; J1100

== ENCOUNTER 2021-04-30 10:59 | Emergency (ER) | payer MEDICAID, SELFPAY ==
--- NOTE | ~2021-04-30 | XR_ITS ---
EXAMINATION: XR CHEST CLINICAL INFORMATION: Dyspnea COMPARISON: Chest radiograph from 04/25/2021 TECHNIQUE: Frontal view of the chest was obtained. FINDINGS: Subtle patchy radiopacities throughout the bilateral lung doan, decreased in prominence since prior imaging. No pneumothorax. Cardiac mediastinal silhouette is not enlarged. No large pleural effusions. Soft tissues are unremarkable. XR/XR chest 1V IMPRESSION: Subtle patchy radiopacities throughout the bilateral lung doan, decreased in prominence since prior imaging.
--- NOTE | 2021-04-30 11:03 | ECG_ITS ---
Test Reason : SOB Blood Pressure : / mmHG Vent. Rate : 073 BPM Atrial Rate : 073 BPM P-R Int : 154 ms QRS Dur : 092 ms QT Int : 360 ms P-R-T Axes : 051 053 043 degrees QTc Int : 396 ms Normal sinus rhythm Normal ECG When compared with ECG of 19-FEB-2021 19:53, Vent. rate has decreased BY 36 BPM Referred By: Eryn Morris Electronically Signed By:PORTER COMER
[2021-04-30 11:05] VITALS: BP 130/80; BP 130/86; PULSE 76; PULSE 84; RESP 20; TEMP 36.9; O2SAT 96; O2SAT 97; BMI 33.3
--- NOTE | 2021-04-30 11:05 | ED.SOB ---
HPI - SOB/Dyspnea General Stated Complaint: covid +, sob Time Seen by Provider: 04/30/21 11:02 Source: patient, EMS and old records reviewed Mode of arrival: EMS Limitations: no limitations History of Present Illness MD elicited complaint: shortness of breath and cough Pertinent past history: asthma and other (dx with COVID on 04/25 sent home on 04/27 with dexamethasone did not fill Rx) Onset (ago): hour(s) (couple) Context: recent illness Timing: improved Severity: moderate Exacerbating factors: exertion Relieving factors: bronchodilators Known history of: asthma Associated symptoms: denies other symptoms Treatment prior to arrival: none Related Data Home Medications Medication Instructions Recorded Confirmed albuterol sulfate 90 mcg/actuation 1 puff PO Q6H PRN 02/19/21 04/30/21 aerosol inhaler Previous Rx's Medication Instructions Recorded albuterol sulfate 2.5 mg INHALATION Q4-6H PRN 30 02/20/21 Days ml dexamethasone 6 mg tablet 6 mg PO DAILY #7 tab 04/27/21 Allergies Allergy/AdvReac Type Severity Reaction Status Date / Time shellfish derived Allergy Severe SHORTNESS Verified 04/25/21 20:32 OF BREATH, SWELLING shrimp Allergy Severe ANAPHYLAXIS Verified 04/25/21 20:32 Review of Systems Review of Systems: Constitutional : No Fever, No Chills ENT/Mouth : No Hoarseness, No sore throat, No Rhinorrhea Eyes: No Redness, No Discharge, No Vision Changes Cardiovascular : No Chest Pain, positive SOB, positive Dyspnea on Exertion, No Edema Respiratory : positive Cough, No Sputum, positive Wheezing, Gastrointestinal : No Nausea, No Vomiting, No Diarrhea, No abdominal Pain Genitourinary : No Dysuria, No Hematuria Musculoskeletal : No joint pain, No Myalgias Skin : No rash Neuro : No Weakness, No Numbness, No Headache Psych : No anxiety, depression Heme/Lymph: No Bruising, No Bleeding Endocrine : No Polyuria, No Polydipsia All other systems reviewed and are negative [facility] Past Medical History Attestation statement: The following information was validated with the patient. Medical History (Updated 04/30/21 @ 12:40 by Eryn Morris DO) Asthma Pneumonia due to 2019 novel coronavirus Surgical History No significant past surgical history Family History Family History (Updated 04/26/21 @ 06:19 by Sharlene Rodriguez MD) Mother Asthma Social History Social History Household Members: None Housing: House Do you presently have visiting nurse or other home services: No Alcohol intake: never Patient Tobacco Use Status: Never used Tobacco Use of substances other than those prescribed or required for medical reasons: No Advance Directives: Yes Advance Directives Information Provided: No Advance Directives on File: No service: No Current occupational status: unemployed Physical Exam Vital Signs: Vital Signs: Last Vital Signs Temp 98.4 F 04/30/21 11:05 Pulse 90 04/30/21 11:35 Resp 20 04/30/21 11:05 BP 130/86 04/30/21 11:05 Pulse Ox 97 04/30/21 11:05 Body Mass Index 33.3 Appearance: Alert. Oriented X3. No acute distress. Eyes: Pupils equal, round and reactive to light. ENT: Pharynx normal. Neck: Normal inspection. Neck supple. CVS: Normal heart rate and rhythm. Pulses normal. Respiratory: No respiratory distress. Breath sounds diffuse mild end exp wheezes Abdomen: Soft and nontender. Skin: Skin warm and dry. Normal skin color. Normal skin turgor. Extremities: No lower extremity edema. No calf ttp Neuro: Oriented X 3. No motor deficit. No sensory deficit. Course Course Course Narrative: ddimer under upper limits of normal no hypoxia or tachycardia or chest pain doubt PE feels much better, 98% on RA, lungs clear, states he can get his steroids today his xray is improved MDM - SOB/Dyspnea MDM Narrative Medical decision making narrative: 26 yo male well known to us with asthma dx on 04/25 with COVID though he thinks he is 9 days out from his symptoms felt short of breath this AM did not respond to his nebulizer. He did not fill his dexamethasone Rx, he has no chest pain and he actually looks really well compared to his baseline asthma attacks - his sat is 97% on RA. Will give neb and IV dexa, repeat labs, CXR but overall he looks really well and is not hypoxic. Encouraged him to machine pecan picker his dexamethasone Rx Lab Data Result diagrams: 04/30/21 11:20 04/30/21 11:20 Labs: Lab Results 0904/30/21 04/30/21 Range/Units 11:13 11:19 11:20 WBC 8.0 (4.8-10.8) X10*3/uL RBC 6.01 H (4.60-5.80) X10*6/uL Hgb 16.2 (14.0-18.0) g/dl Hct 46.4 (42-52) % MCV 77.2 L (80-98) fL MCH 27.0 (27.0-33.0) pg MCHC 34.9 (31.0-36.0) g/dl RDW 11.6 (11.0-16.0) % Plt Count 401 H D (160-400) X10*3/uL MPV 9.2 L (9.4-12.4) fL Immature Gran % (Auto) 1.4 H (0.0-0.4) % Neut % (Auto) 55.5 (45-73) % Lymph % (Auto) 30.4 (20-40) % [place] % (Auto) 9.8 (2-11) % Eos % (Auto) 2.4 (0-4) % Baso % (Auto) 0.5 (0-2) % Lymph # (Auto) 2.4 (1.2-4.9) X10*3/uL [place] # (Auto) 0.8 (0.1-1.2) X10*3/uL Eos # (Auto) 0.2 (0.0-0.4) X10*3/uL Baso # (Auto) 0.0 (0.0-0.2) X10*3/uL Abs Immat Gran (auto) 0.11 H (0.00-0.03) X10*3/uL Absolute Neuts (auto) 4.4 (2.0-8.3) X10*3/uL Absolute Nucleated RBC 0.000 (0.0-0.012) X10*3/uL Nucleated RBC % (auto) 0.0 (0.0-0.2) /100WBC PT (9.9-13.0) SEC INR (0.9-1.1) APTT (24.1-38.0) SEC D-Dimer NG/ML VBG pH 7.51 H (7.32-7.43) VBG pCO2 23 mmHg VBG pO2 56 mmHg VBG HCO3 19 L (22-26) mmol/L VBG O2 Saturation 85.0 % VBG Base Excess -1.5 mmol/L Sodium (135-145) mmol/L Potassium (3.3-5.1) mmol/L Chloride (96-108) mmol/L Carbon Dioxide (22-29) mmol/L Anion Gap (12-20) BUN (9-16) mg/dL Creatinine (0.5-1.4) mg/dL Estim Creat Clear Calc Estimated GFR Random Glucose (60-115) mg/dL Lactic Acid (0.5-2.0) mmol/L Calcium (8.4-10.2) mg/dL Magnesium (1.6-2.6) mg/dL Ferritin (20-250) ng/mL Total Bilirubin (0.0-1.0) mg/dL Direct Bilirubin (0.0-0.5) mg/dL AST (5-37) U/L ALT (0-40) U/L Alkaline Phosphatase (39-117) U/L Lactate Dehydrogenase (118-273) U/L Total Creatine Kinase (38-174) U/L Total Protein (6.5-8.0) g/dL Albumin (3.5-5.0) g/dL Procalcitonin ng/mL COVID-19 ([facility]) Negative (Negative) COVID-19 Clin Com See Note 04/30/21 04/30/21 04/30/21 Range/Units 11:20 11:20 11:20 WBC (4.8-10.8) X10*3/uL RBC (4.60-5.80) X10*6/uL Hgb (14.0-18.0) g/dl Hct (42-52) % MCV (80-98) fL MCH (27.0-33.0) pg MCHC (31.0-36.0) g/dl RDW (11.0-16.0) % Plt Count (160-400) X10*3/uL MPV (9.4-12.4) fL Immature Gran % (Auto) (0.0-0.4) % Neut % (Auto) (45-73) % Lymph % (Auto) (20-40) % [place] % (Auto) (2-11) % Eos % (Auto) (0-4) % Baso % (Auto) (0-2) % Lymph # (Auto) (1.2-4.9) X10*3/uL [place] # (Auto) (0.1-1.2) X10*3/uL Eos # (Auto) (0.0-0.4) X10*3/uL Baso # (Auto) (0.0-0.2) X10*3/uL Abs Immat Gran (auto) (0.00-0.03) X10*3/uL Absolute Neuts (auto) (2.0-8.3) X10*3/uL Absolute Nucleated RBC (0.0-0.012) X10*3/uL Nucleated RBC % (auto) (0.0-0.2) /100WBC PT 12.9 (9.9-13.0) SEC INR 1.1 (0.9-1.1) APTT 31.2 (24.1-38.0) SEC D-Dimer 260 NG/ML VBG pH (7.32-7.43) VBG pCO2 mmHg VBG pO2 mmHg VBG HCO3 (22-26) mmol/L VBG O2 Saturation % VBG Base Excess mmol/L Sodium 138 (135-145) mmol/L Potassium 4.2 (3.3-5.1) mmol/L Chloride 107 (96-108) mmol/L Carbon Dioxide 21 L (22-29) mmol/L Anion Gap 14 (12-20) BUN 10 (9-16) mg/dL Creatinine 0.89 (0.5-1.4) mg/dL Estim Creat Clear Calc 129.0 Estimated GFR > 60 Random Glucose 93 (60-115) mg/dL Lactic Acid 1.0 (0.5-2.0) mmol/L Calcium 9.5 (8.4-10.2) mg/dL Magnesium 2.3 (1.6-2.6) mg/dL Ferritin 301 H (20-250) ng/mL Total Bilirubin 0.9 (0.0-1.0) mg/dL Direct Bilirubin 0.3 (0.0-0.5) mg/dL AST 37 (5-37) U/L ALT 48 H (0-40) U/L Alkaline Phosphatase 60 (39-117) U/L Lactate Dehydrogenase 249 (118-273) U/L Total Creatine Kinase 78 (38-174) U/L Total Protein 7.5 (6.5-8.0) g/dL Albumin 4.2 (3.5-5.0) g/dL Procalcitonin ng/mL COVID-19 ([facility]) (Negative) COVID-19 Clin Com 04/30/21 04/30/21 Range/Units 11:20 11:28 WBC (4.8-10.8) X10*3/uL RBC (4.60-5.80) X10*6/uL Hgb (14.0-18.0) g/dl Hct (42-52) % MCV (80-98) fL MCH (27.0-33.0) pg MCHC (31.0-36.0) g/dl RDW (11.0-16.0) % Plt Count (160-400) X10*3/uL MPV (9.4-12.4) fL Immature Gran % (Auto) (0.0-0.4) % Neut % (Auto) (45-73) % Lymph % (Auto) (20-40) % [place] % (Auto) (2-11) % Eos % (Auto) (0-4) % Baso % (Auto) (0-2) % Lymph # (Auto) (1.2-4.9) X10*3/uL [place] # (Auto) (0.1-1.2) X10*3/uL Eos # (Auto) (0.0-0.4) X10*3/uL Baso # (Auto) (0.0-0.2) X10*3/uL Abs Immat Gran (auto) (0.00-0.03) X10*3/uL Absolute Neuts (auto) (2.0-8.3) X10*3/uL Absolute Nucleated RBC (0.0-0.012) X10*3/uL Nucleated RBC % (auto) (0.0-0.2) /100WBC PT (9.9-13.0) SEC INR (0.9-1.1) APTT (24.1-38.0) SEC D-Dimer NG/ML VBG pH 7.51 H (7.32-7.43) VBG pCO2 23 mmHg VBG pO2 56 mmHg VBG HCO3 19 L (22-26) mmol/L VBG O2 Saturation 85.0 % VBG Base Excess -1.5 mmol/L Sodium (135-145) mmol/L Potassium (3.3-5.1) mmol/L Chloride (96-108) mmol/L Carbon Dioxide (22-29) mmol/L Anion Gap (12-20) BUN (9-16) mg/dL Creatinine (0.5-1.4) mg/dL Estim Creat Clear Calc Estimated GFR Random Glucose (60-115) mg/dL Lactic Acid (0.5-2.0) mmol/L Calcium (8.4-10.2) mg/dL Magnesium (1.6-2.6) mg/dL Ferritin (20-250) ng/mL Total Bilirubin (0.0-1.0) mg/dL Direct Bilirubin (0.0-0.5) mg/dL AST (5-37) U/L ALT (0-40) U/L Alkaline Phosphatase (39-117) U/L Lactate Dehydrogenase (118-273) U/L Total Creatine Kinase (38-174) U/L Total Protein (6.5-8.0) g/dL Albumin (3.5-5.0) g/dL Procalcitonin 0.03 ng/mL COVID-19 ([facility]) (Negative) COVID-19 Clin Com ECG Data Attestation: I personally reviewed and interpreted this ECG as follows: ECG interpretation date: 04/30/21 ECG interpretation time: 11:34 Interpretation: Rate: 73 Rhythm: NSR [place]: normal Normal P waves. Normal CHERYL. Normal QRS complex. ST T wave : normal no ESME qTC: normal prior studies: no acute ischemia The study has been interpreted contemporaneously by me. . Discharge Plan Discharge Clinical Impression: Pneumonia due to 2019-nCoV Asthma Qualifiers: Asthma severity: severe Asthma persistence: persistent Asthma complication type: with acute exacerbation Qualified Code(s): J45.51 - Severe persistent asthma with (acute) exacerbation Patient Disposition: Home, Self-Care Instructions: COVID-19 (Coronavirus Disease 2019) (ED), Asthma (ED) Additional Instructions: return to ED for any worsening symptoms or concerns take your steroids Prescriptions: No Action dexamethasone 6 mg tablet 6 mg PO DAILY Qty: 7 RF: 0 albuterol sulfate 90 mcg/actuation HFA aerosol inhaler 1 puff PO Q6H PRN (Reason: wheezing) RF: 0 albuterol sulfate 2.5 mg /3 mL (0.083 %) solution for nebulization 2.5 mg inhalation Q4-6H PRN (Reason: bronchospasm) 30 Days RF: 0
[2021-04-30 11:30] LABS: MANUAL DIFF FLAG NO
[2021-04-30] MEDS: Albuterol Sulfate (0.083%) 2.5 MG/3 ML VIAL.NEB 10 MG INHALE (11:31)
[2021-04-30] MEDS: Magnesium Sulfate/H2O 2 GM/50 ML PIGGYBACK IV (11:34)
[2021-04-30] MEDS: dexAMETHasone sod phosphate 4 MG/ML VIAL 6 MG IVPUSH (11:34)
[2021-04-30 11:35] VITALS: PULSE 90; O2SAT 99
[2021-04-30 11:38] LABS: Basophils Percent Auto 0.5 % (0-2); Eosinophils Absolute Auto 0.2 X10*3/uL (0.0-0.4); Eosinophils Percent Auto 2.4 % (0-4); Hematocrit 46.4 % (42-52); Hemoglobin 16.2 g/dl (14.0-18.0); Imm Gran Abs Auto 0.11 X10*3/uL (0.00-0.03); Imm Gran Pct Auto 1.4 % (0.0-0.4); Lymphocytes Absolute Auto 2.4 X10*3/uL (1.2-4.9); Lymphocytes Percent Auto 30.4 % (20-40); Mean Corpuscular HGB Conc 34.9 g/dl (31.0-36.0); Mean Corpuscular Volume 77.2 fL (80-98); Mean Platelet Volume 9.2 fL (9.4-12.4); Monocytes Absolute Auto 0.8 X10*3/uL (0.1-1.2); Monocytes Percent Auto 9.8 % (2-11); Neutrophils Absolute Auto 4.4 X10*3/uL (2.0-8.3); Neutrophils Percent Auto 55.5 % (45-73); Platelet Count 401 X10*3/uL (160-400); Red Blood Count 6.01 X10*6/uL (4.60-5.80); Red Cell Distribution Width 11.6 % (11.0-16.0)
[2021-04-30 11:43] LABS: Venous Blood Gas Refer to POC result
[2021-04-30 11:46] LABS: VBG Base Excess -1.5 mmol/L; VBG HCO3 19 mmol/L (22-26); VBG pCO2 23 mmHg; VBG pH 7.51 (7.32-7.43); VBG pO2 56 mmHg
[2021-04-30 11:47] LABS: VBG Base Excess -1.5 mmol/L; VBG HCO3 19 mmol/L (22-26); VBG pCO2 23 mmHg; VBG pH 7.51 (7.32-7.43); VBG pO2 56 mmHg
[2021-04-30 11:57] LABS: INTERNATIONAL NORM RATIO 1.1 (0.9-1.1); Prothrombin Time 12.9 SEC (9.9-13.0)
[2021-04-30 12:00] LABS: D Dimer 260 NG/ML; Partial Thromboplastin Time 31.2 SEC (24.1-38.0)
[2021-04-30 12:06] LABS: Alanine Aminotransferase 48 U/L (0-40); Albumin Level 4.2 g/dL (3.5-5.0); Alkaline Phosphatase 60 U/L (39-117); Anion Gap 14 (12-20); Aspartate Amino Transferase 37 U/L (5-37); Bilirubin Direct 0.3 mg/dL (0.0-0.5); Bilirubin Total 0.9 mg/dL (0.0-1.0); Blood Urea Nitrogen 10 mg/dL (9-16); Calcium 9.5 mg/dL (8.4-10.2); Carbon Dioxide 21 mmol/L (22-29); Chloride 107 mmol/L (96-108); Estimated Glomerular Filt Rate > 60; Glucose Random 93 mg/dL (60-115); Lactate Dehydrogenase 249 U/L (118-273); Magnesium 2.3 mg/dL (1.6-2.6); Potassium 4.2 mmol/L (3.3-5.1); Sodium 138 mmol/L (135-145); Total Protein 7.5 g/dL (6.5-8.0)
[2021-04-30 12:13] LABS: COVID-19 Test Negative (Negative); IDNOW Serial# 9DD0AD1C
--- NOTE | 2021-04-30 12:15 | PHA.MEDREC ---
Pharmacy Consult ? Medication Reconciliation Pharmacy has completed the medication reconciliation.
[2021-04-30 12:28] LABS: Ferritin 301 ng/mL (20-250)
[2021-04-30 12:31] LABS: Procalcitonin 0.03 ng/mL
[2021-04-30 12:55] VITALS: BP 108/80; PULSE 76; RESP 14; TEMP 36.8; O2SAT 97
== END 2021-04-30 13:02 | disposition home or self-care (01) ==
PROVIDERS: Emergency Provider Emergency Medicine
DX: U07.1 COVID-19 (principal); J12.82 Pneumonia due to coronavirus disease 2019; J45.51 Severe persistent asthma with (acute) exacerbation; Z79.899 Other long term (current) drug therapy
CPT/HCPCS: 36415; 71045; 80048; 80076; 82550; 82728; 82803; 83605; 83615; 83735; 84145; 85025; 85379; 85610; 85730; 87040; 87635; 93005; 94640; 94644; 96365; 96366; 96375; 99284; J1100; J3475

== ENCOUNTER 2021-05-18 04:33 | Emergency (ER) | payer MEDICAID, SELFPAY ==
--- NOTE | ~2021-05-18 | XR_ITS ---
EXAMINATION: XR CHEST CLINICAL INFORMATION: Shortness of breath COMPARISON: 04/30/2021 TECHNIQUE: Frontal view of the chest was obtained. FINDINGS: Cardiac leads overlie the chest. The lungs are well expanded. There is no focal consolidation, edema, or effusion. Mild bronchial wall thickening noted. No pneumothorax. The cardiomediastinal silhouette is within normal limits. No acute osseous abnormality. XR/XR chest 1V IMPRESSION: No consolidation. Bronchial wall thickening can be seen with a small airways process such as asthma or atypical/viral infection.
[2021-05-18 04:33] VITALS: BP 119/67; PULSE 106; RESP 16; TEMP 36.8; O2SAT 98; BMI 34.9
[2021-05-18] MEDS: Albuterol Sulfate (0.083%) 2.5 MG/3 ML VIAL.NEB 10 MG INHALE ×2 (04:39→06:21)
--- NOTE | 2021-05-18 04:41 | ED.ASTHMA ---
HPI - Asthma General Chief Complaint: Dyspnea Stated Complaint: sob Time Seen by Provider: 05/18/21 04:41 Source: patient Mode of arrival: EMS History of Present Illness HPI Narrative: 26-year-old male with history of asthma and COVID-19 positive 3 weeks ago presents with acute asthma exacerbation with shortness of breath despite using his home inhalers. EMS provided IM Solu-Medrol as well as a DuoNeb in route. Patient was noted to be 93% oxygenation on arrival at patient's home and is now 97%. He denies any sore throat, cough, fever, chills and otherwise has been in good health. Related Data Home Medications Medication Instructions Recorded Confirmed albuterol sulfate 90 mcg/actuation 1 puff PO Q6H PRN 02/19/21 04/30/21 aerosol inhaler Previous Rx's Medication Instructions Recorded albuterol sulfate 2.5 mg INHALATION Q4-6H PRN 30 02/20/21 Days ml dexamethasone 6 mg tablet 6 mg PO DAILY #7 tab 04/27/21 prednisone 20 mg tablet 40 mg PO DAILY 4 Days #8 tab 05/18/21 Allergies Allergy/AdvReac Type Severity Reaction Status Date / Time shellfish derived Allergy Severe SHORTNESS Verified 04/25/21 20:32 OF BREATH, SWELLING shrimp Allergy Severe ANAPHYLAXIS Verified 04/25/21 20:32 Review of Systems Review of Systems: Pertinent positives and negatives as stated in HPI 10 point review of systems is otherwise negative. [facility] Past Medical History Source: nursing notes reviewed Medical History Asthma Asthma Pneumonia due to 2019 novel coronavirus Surgical History No significant past surgical history Family History Family History Mother Asthma Social History Social History Household Members: None Housing: House Do you presently have visiting nurse or other home services: No Alcohol intake: never Patient Tobacco Use Status: Never used Tobacco Advance Directives: No Advance Directives Information Provided: No service: No Current occupational status: unemployed Physical Exam Vital Signs: Vital Signs: Last Vital Signs Temp 98.2 F 05/18/21 04:33 Pulse 101 H 05/18/21 06:22 Resp 22 H 05/18/21 05:51 BP 145/79 H 05/18/21 05:51 Pulse Ox 95 05/18/21 05:51 Oxygen Flow Rate 6 05/18/21 04:33 Body Mass Index 34.9 VITAL SIGNS: Reviewed. GENERAL: Well developed, well nourished, in no acute distress. HEAD: Normocephalic/atraumatic EYES: PERRLA, EOMI OROPHARYNX: no oral lesions noted, posterior pharynx clear NECK: Supple, no adenopathy LUNGS: Speaking in full sentences, positive tachypnea, decreased air movement with noted expiratory wheeze bilateral. SpO2<98> CARDIOVASCULAR: Regular rate and rhythm without noted murmurs ABDOMEN: Soft, non-tender, non-distended with bowel sounds. SKIN: Inspection of the skin reveals no rashes NEUROLOGIC: Alert and oriented x 4. Strength and sensation to light touch were grossly intact x 4. Course Course Course Narrative: 26-year-old male with history and clinical presentation consistent with asthma exacerbation and low clinical suspicion for pneumonia or PE. Review of all investigations without acute findings and on reassessment patient states that he feels much better after receiving to 10 mg albuterol treatments as well as 4 puffs of Ventolin. Patient informed of all results and findings an otherwise will be discharged in stable condition. MDM - Asthma Lab Data Labs: Lab Results 05/18/21 Range/Units 04:48 Coronavirus (PCR) NEGATIVE (Negative) Influenza Type A (PCR) NEGATIVE (Negative) Influenza Type B (PCR) NEGATIVE (Negative) RSV RNA Qual (PCR) NEGATIVE (Negative) Discharge Plan Discharge Clinical Impression: Asthma with acute exacerbation Patient Disposition: Home, Self-Care Instructions: Asthma (ED) Additional Instructions: Follow-up with primary care provider to discuss addition of maintenance inhaler. Return to the ER for acute worsening of symptoms. Prescriptions: New prednisone 20 mg tablet 40 mg PO DAILY 4 Days Qty: 8 RF: 0 No Action dexamethasone 6 mg tablet 6 mg PO DAILY Qty: 7 RF: 0 albuterol sulfate 90 mcg/actuation HFA aerosol inhaler 1 puff PO Q6H PRN (Reason: wheezing) RF: 0 albuterol sulfate 2.5 mg /3 mL (0.083 %) solution for nebulization 2.5 mg inhalation Q4-6H PRN (Reason: bronchospasm) 30 Days RF: 0 Referrals: Physician,Unknown J [Primary Care Provider] - 2 days
[2021-05-18 04:42] VITALS: PULSE 94; O2SAT 98
[2021-05-18 05:34] LABS: Influenza A PCR NEGATIVE (Negative); Influenza B PCR NEGATIVE (Negative); Resp Syncy Virus RNA Qual PCR NEGATIVE (Negative); SARS COV2 PCR INHOUSE NEGATIVE (Negative)
[2021-05-18 05:51] VITALS: BP 145/79; PULSE 100; RESP 22; O2SAT 95
[2021-05-18] MEDS: Albuterol Sulfate 90 MCG 8 GM INHALER 4 PUFF INHALE (06:21)
[2021-05-18 06:22] VITALS: PULSE 101; O2SAT 91
--- NOTE | 2021-05-18 07:48 | PC.NURSE ---
pt medically cleared for discharge. pt given discharge summary with recommendations to follow-up with PCP. Pt states he does not have a doctor at this time. Pt had no questions.
== END 2021-05-18 07:50 | disposition home or self-care (01) ==
LOC: HO.ED 04:58
PROVIDERS: Emergency Provider Student in an Organized Health Care Education/Training Program
DX: J45.901 Unspecified asthma with (acute) exacerbation (principal); R06.02 Shortness of breath; Z20.822 Contact with and (suspected) exposure to COVID-19; Z79.899 Other long term (current) drug therapy
CPT/HCPCS: 0241U; 36415; 71045; 94640; 94644; 94645; 99284; 99285

== ENCOUNTER 2021-05-23 18:04 | Emergency (ER) | payer MEDICAID, SELFPAY ==
[2021-05-23 18:51] VITALS: BP 128/90; PULSE 119; RESP 20; TEMP 36.9; O2SAT 93
--- NOTE | 2021-05-23 19:08 | ED.ASTHMA ---
HPI - Asthma General Chief Complaint: Asthma Stated Complaint: sob Time Seen by Provider: 05/23/21 19:08 Source: patient Mode of arrival: ambulatory Limitations: no limitations History of Present Illness HPI Narrative: Patient's history of severe asthma with recurrent ER visits for flare ups noticed increased wheezing since a.m. today not relieved not relieved with home inhalers patient had COVID 3 weeks ago and recent COVID swab done 2 times negative. Patient has at home but no medicine Related Data Home Medications Medication Instructions Recorded Confirmed albuterol sulfate 90 mcg/actuation 1 puff PO Q6H PRN 02/19/21 04/30/21 aerosol inhaler Previous Rx's Medication Instructions Recorded albuterol sulfate 2.5 mg INHALATION Q4-6H PRN 30 02/20/21 Days ml dexamethasone 6 mg tablet 6 mg PO DAILY #7 tab 04/27/21 prednisone 20 mg tablet 40 mg PO DAILY 4 Days #8 tab 05/18/21 albuterol sulfate 2.5 mg INHALATION Q4-6H PRN #180 ml 05/23/21 prednisone 20 mg tablet 40 mg PO DAILY #10 tab 05/23/21 Allergies Allergy/AdvReac Type Severity Reaction Status Date / Time shellfish derived Allergy Severe SHORTNESS Verified 05/23/21 18:51 OF BREATH, SWELLING shrimp Allergy Severe ANAPHYLAXIS Verified 05/23/21 18:51 Review of Systems Review of Systems: Yes all other systems are reviewed and are negative PMFSH Past Medical History Medical History Asthma Asthma Pneumonia due to 2019 novel coronavirus Surgical History No significant past surgical history Family History Family History Mother Asthma Social History Social History Household Members: None Housing: House Do you presently have visiting nurse or other home services: No Alcohol intake: never Patient Tobacco Use Status: Never used Tobacco Advance Directives: No Advance Directives Information Provided: No service: No Current occupational status: unemployed Physical Exam Vital Signs: Vital Signs: Last Vital Signs Temp 98.5 F 05/23/21 18:51 Pulse 120 H 05/23/21 21:32 Resp 20 05/23/21 18:51 BP 128/90 H 05/23/21 18:51 Pulse Ox 93 05/23/21 18:51 Body Mass Index 0.3 Appearance: Alert. Oriented X3. No acute distress. Eyes: No pallor ENT: Pharynx normal. Oral Mucosa moist Neck: Normal inspection. Neck supple. CVS: Normal heart rate and rhythm. Pulses normal. Respiratory: No respiratory distress. Equal air entry bilateral, bilateral diffuse wheezing, No rales Abdomen: Soft and nontender. Bowel sounds are present, Skin: Skin warm and dry. Normal skin color. Normal skin turgor. Extremities: No lower extremity edema. No calf tenderness Neuro: Oriented X 3. MDM - Asthma MDM Narrative Medical decision making narrative: Patient with frequent asthma attacks received continuous nebulizing treatment and p.o. Decadron feeling much better discharge patient home saturating 93% on room air Medical Records Attestation: I reviewed the patient's medical records. Discharge Plan Discharge Clinical Impression: Acute asthmatic bronchitis Patient Disposition: Home, Self-Care Instructions: Asthma (ED) Additional Instructions: Use inhaler/nebulizing treatment as advised Prednisone as prescribed Follow-up with lung specialist Prescriptions: New albuterol sulfate 2.5 mg /3 mL (0.083 %) solution for nebulization 2.5 mg inhalation Q4-6H PRN (Reason: shortness of breath or wheezing) Qty: 180 RF: 0 prednisone 20 mg tablet 40 mg PO DAILY Qty: 10 RF: 0 No Action dexamethasone 6 mg tablet 6 mg PO DAILY Qty: 7 RF: 0 albuterol sulfate 90 mcg/actuation HFA aerosol inhaler 1 puff PO Q6H PRN (Reason: wheezing) RF: 0 albuterol sulfate 2.5 mg /3 mL (0.083 %) solution for nebulization 2.5 mg inhalation Q4-6H PRN (Reason: bronchospasm) 30 Days RF: 0 prednisone 20 mg tablet 40 mg PO DAILY 4 Days Qty: 8 RF: 0 Interventions: ED Discharge Assessment Last Done: 05/23/21 22:46 Discharge Date/Time: 05/23/21 22:48
--- NOTE | 2021-05-23 19:08 | PC.NURSE ---
pt to room, refusing to chg into gown. pt's PO 94% on RA. pt arrives alert, respirations easy n/l. skin w/d. pt in NAD at this time and awaiting for MD's eval.
[2021-05-23] MEDS: dexAMETHasone 2 MG TABLET 10 MG PO (19:22)
--- NOTE | 2021-05-23 19:45 | PC.NURSE ---
pt given respiratory tx and medicated as per emar.
[2021-05-23] MEDS: Albuterol Sulfate (0.083%) 2.5 MG/3 ML VIAL.NEB 5 MG INHALE ×2 (19:49→21:28)
[2021-05-23] MEDS: Albuterol/Iprat 2.5/0.5MG 3 ML AMPUL.NEB INHALE (20:37)
[2021-05-23 21:32] VITALS: PULSE 120; O2SAT 98
== END 2021-05-23 22:48 | disposition home or self-care (01) ==
PROVIDERS: Emergency Provider Internal Medicine
DX: J45.909 Unspecified asthma, uncomplicated (principal)
CPT/HCPCS: 94640; 94644; 99283; 99285; J8540

== ENCOUNTER 2021-05-30 12:46 | Emergency (ER) | payer MEDICAID, SELFPAY ==
--- NOTE | ~2021-05-30 | XR_ITS ---
EXAMINATION: XR CHEST CLINICAL INFORMATION: Dyspnea COMPARISON: Chest x-ray on 05/18/2021, 03/26/2021 TECHNIQUE: Frontal view of the chest was obtained. FINDINGS: The cardiac silhouette is normal. There is mild diffuse bronchial wall thickening. There are no areas of consolidation. There are no pleural effusions or pneumothoraces. The bones and soft tissues are unremarkable for the patient's age. XR/XR chest 1V IMPRESSION: Bronchial wall thickening may be infectious and/or inflammatory in etiology.
[2021-05-30 12:50] VITALS: BP 140/108; PULSE 120; O2SAT 88
--- NOTE | 2021-05-30 12:52 | ED.ASTHMA ---
HPI - Asthma General Chief Complaint: Dyspnea Stated Complaint: diff breathing Time Seen by Provider: 05/30/21 12:51 Source: patient, EMS and old records reviewed Mode of arrival: EMS Limitations: no limitations History of Present Illness MD complaint: asthma attack , shortness of breath and wheezing Onset (ago): hour(s) (woke up this AM with symptoms) Severity: moderate and similar to prior Context: none known Associated symptoms: dry cough Asthma History: childhood onset Treatments Prior to Arrival: inhaled bronchodilator, IV steroid (125mg solumedrol) and other (IV magnesium) Related Data Home Medications Medication Instructions Recorded Confirmed albuterol sulfate 90 mcg/actuation 1 puff PO Q6H PRN 02/19/21 04/30/21 aerosol inhaler Previous Rx's Medication Instructions Recorded albuterol sulfate 2.5 mg INHALATION Q4-6H PRN 30 02/20/21 Days ml dexamethasone 6 mg tablet 6 mg PO DAILY #7 tab 04/27/21 prednisone 20 mg tablet 40 mg PO DAILY 4 Days #8 tab 05/18/21 albuterol sulfate 2.5 mg INHALATION Q4-6H PRN #180 ml 05/23/21 prednisone 20 mg tablet 40 mg PO DAILY #10 tab 05/23/21 albuterol sulfate 90 mcg/actuation 2 puff INHALATION QID PRN #6.7 g 05/30/21 aerosol inhaler fluticasone 500 mcg-salmeterol 50 1 inh INHALATION BID #60 ea 05/30/21 mcg/dose blistr powdr for inhalation (Advair Diskus) prednisone 20 mg tablet 40 mg PO DAILY 5 Days #10 tab 05/30/21 Allergies Allergy/AdvReac Type Severity Reaction Status Date / Time shellfish derived Allergy Severe SHORTNESS Verified 05/23/21 18:51 OF BREATH, SWELLING shrimp Allergy Severe ANAPHYLAXIS Verified 05/23/21 18:51 Review of Systems Review of Systems: Constitutional : No Fever, No Chills ENT/Mouth : No Hoarseness, No sore throat, No Rhinorrhea Eyes: No Redness, No Discharge, No Vision Changes Cardiovascular : No Chest Pain, positive SOB, positive Dyspnea on Exertion, No Edema Respiratory : positive Cough, No Sputum, positive Wheezing, Gastrointestinal : No Nausea, No Vomiting, No Diarrhea, No abdominal Pain Genitourinary : No Dysuria, No Hematuria Musculoskeletal : No joint pain, No Myalgias Skin : No rash Neuro : No Weakness, No Numbness, No Headache Psych : No anxiety, depression Heme/Lymph: No Bruising, No Bleeding Endocrine : No Polyuria, No Polydipsia All other systems reviewed and are negative [facility] Past Medical History Attestation statement: The following information was validated with the patient. Medical History Asthma Asthma Pneumonia due to 2019 novel coronavirus Surgical History No significant past surgical history Family History Family History Mother Asthma Social History Social History Household Members: None Housing: House Do you presently have visiting nurse or other home services: No Alcohol intake: never Patient Tobacco Use Status: Never used Tobacco Advance Directives: No Advance Directives Information Provided: Yes Advance Directives on File: No service: No Current occupational status: unemployed Physical Exam Vital Signs: Vital Signs: Last Vital Signs Pulse 118 H 05/30/21 12:54 Resp 20 05/30/21 12:54 BP 101/82 05/30/21 12:54 Pulse Ox 98 05/30/21 12:54 Body Mass Index 25.8 Appearance: Alert. Oriented X3. Mild acute distress. Eyes: Pupils equal, round and reactive to light. ENT: Pharynx normal. Neck: Normal inspection. Neck supple. CVS: Normal heart rate and rhythm. Pulses normal. Respiratory: Mild respiratory distress retractions and tachypnea. Breath sounds diffuse end exp wheezes Abdomen: Soft and non-tender. Skin: Skin warm and dry. Normal skin color. Normal skin turgor. Extremities: No lower extremity edema. No calf ttp Neuro: Oriented X 3. No motor deficit. No sensory deficit. Course Course Course Narrative: wheezing clear 94% on RA, asking to leave states he feels better patient had Rx for advair but couldn't fill it but now has his [facility] [employer] ID number MDM - Asthma MDM Narrative Medical decision making narrative: 26 yo male with hx of severe asthma here with wheezing, just got over COVID about 1 month ago - at this time will give hour long neb, fluids, labs and CXR. Already received his steroids and magnesium. Dispo per results and improvement. Lab Data Result diagrams: 05/30/21 13:06 05/30/21 13:06 Labs: Lab Results 05/30/21 05/30/21 Range/Units 13:06 13:06 WBC 18.4 H (4.8-10.8) X10*3/uL RBC 5.49 (4.60-5.80) X10*6/uL Hgb 15.0 (14.0-18.0) g/dl Hct 43.1 (42-52) % MCV 78.5 L (80-98) fL MCH 27.3 (27.0-33.0) pg MCHC 34.8 (31.0-36.0) g/dl RDW 12.7 (11.0-16.0) % Plt Count 318 (160-400) X10*3/uL MPV 9.3 L (9.4-12.4) fL Immature Gran % (Auto) 0.5 H (0.0-0.4) % Neut % (Auto) 67.5 (45-73) % Lymph % (Auto) 15.3 L (20-40) % [place] % (Auto) 6.9 (2-11) % Eos % (Auto) 8.8 H (0-4) % Baso % (Auto) 1.0 (0-2) % Lymph # (Auto) 2.8 (1.2-4.9) X10*3/uL [place] # (Auto) 1.3 H (0.1-1.2) X10*3/uL Eos # (Auto) 1.6 H (0.0-0.4) X10*3/uL Baso # (Auto) 0.2 (0.0-0.2) X10*3/uL Abs Immat Gran (auto) 0.09 H (0.00-0.03) X10*3/uL Absolute Neuts (auto) 12.4 H (2.0-8.3) X10*3/uL Absolute Nucleated RBC 0.000 (0.0-0.012) X10*3/uL Nucleated RBC % (auto) 0.0 (0.0-0.2) /100WBC Sodium 139 (135-145) mmol/L Potassium 4.0 (3.3-5.1) mmol/L Chloride 106 (96-108) mmol/L Carbon Dioxide 23 (22-29) mmol/L Anion Gap 14 (12-20) BUN 9 (9-16) mg/dL Creatinine 0.83 (0.5-1.4) mg/dL Estim Creat Clear Calc 138.0 Estimated GFR > 60 Random Glucose 110 (60-115) mg/dL Calcium 9.0 (8.4-10.2) mg/dL Critical Care Time Critical Care Time Critical Care Time: Yes Total Critical Care Time: 60 Attestation: reassessments, hour long neb, O2 sat I attest to this time spent taking care of the patient Discharge Plan Discharge Clinical Impression: Asthma with exacerbation Qualifiers: Asthma severity: severe Asthma persistence: persistent Qualified Code(s): J45.51 - Severe persistent asthma with (acute) exacerbation Patient Disposition: Home, Self-Care Instructions: Asthma (ED) Additional Instructions: return to ED for any worsening symptoms or concerns Prescriptions: New prednisone 20 mg tablet 40 mg PO DAILY 5 Days Qty: 10 RF: 0 albuterol sulfate 90 mcg/actuation HFA aerosol inhaler 2 puff inhalation QID PRN (Reason: shortness of breath or wheezing) Qty: 6.7 RF: 0 fluticasone propion-salmeterol [Advair Diskus] 500-50 mcg/dose blister with device 1 inh inhalation BID Qty: 60 RF: 0 No Action dexamethasone 6 mg tablet 6 mg PO DAILY Qty: 7 RF: 0 albuterol sulfate 90 mcg/actuation HFA aerosol inhaler 1 puff PO Q6H PRN (Reason: wheezing) RF: 0 albuterol sulfate 2.5 mg /3 mL (0.083 %) solution for nebulization 2.5 mg inhalation Q4-6H PRN (Reason: bronchospasm) 30 Days RF: 0 albuterol sulfate 2.5 mg /3 mL (0.083 %) solution for nebulization 2.5 mg inhalation Q4-6H PRN (Reason: shortness of breath or wheezing) Qty: 180 RF: 0 prednisone 20 mg tablet 40 mg PO DAILY Qty: 10 RF: 0 prednisone 20 mg tablet 40 mg PO DAILY 4 Days Qty: 8 RF: 0
[2021-05-30 12:54] VITALS: BP 101/82; PULSE 118; RESP 20; O2SAT 98; BMI 25.8
[2021-05-30] MEDS: 0.9 % Sodium Chloride 1,000 ML 999 ML IV (13:07)
[2021-05-30] MEDS: Albuterol Sulfate (0.083%) 2.5 MG/3 ML VIAL.NEB 10 MG INHALE (13:10)
[2021-05-30 13:14] LABS: MANUAL DIFF FLAG NO
[2021-05-30 13:15] LABS: Basophils Absolute Auto 0.2 X10*3/uL (0.0-0.2); Eosinophils Absolute Auto 1.6 X10*3/uL (0.0-0.4); Eosinophils Percent Auto 8.8 % (0-4); Hematocrit 43.1 % (42-52); Imm Gran Abs Auto 0.09 X10*3/uL (0.00-0.03); Imm Gran Pct Auto 0.5 % (0.0-0.4); Lymphocytes Absolute Auto 2.8 X10*3/uL (1.2-4.9); Lymphocytes Percent Auto 15.3 % (20-40); Mean Corpuscular HGB Conc 34.8 g/dl (31.0-36.0); Mean Corpuscular Hemoglobin 27.3 pg (27.0-33.0); Mean Corpuscular Volume 78.5 fL (80-98); Mean Platelet Volume 9.3 fL (9.4-12.4); Monocytes Absolute Auto 1.3 X10*3/uL (0.1-1.2); Monocytes Percent Auto 6.9 % (2-11); Neutrophils Absolute Auto 12.4 X10*3/uL (2.0-8.3); Neutrophils Percent Auto 67.5 % (45-73); Platelet Count 318 X10*3/uL (160-400); Red Blood Count 5.49 X10*6/uL (4.60-5.80); Red Cell Distribution Width 12.7 % (11.0-16.0); White Blood Count 18.4 X10*3/uL (4.8-10.8)
[2021-05-30 13:36] LABS: Anion Gap 14 (12-20); Blood Urea Nitrogen 9 mg/dL (9-16); Carbon Dioxide 23 mmol/L (22-29); Chloride 106 mmol/L (96-108); Estimated Glomerular Filt Rate > 60; Glucose Random 110 mg/dL (60-115); Sodium 139 mmol/L (135-145)
[2021-05-30] MEDS: Albuterol Sulfate 90 MCG 8 GM INHALER 2 PUFF INHALE (15:16)
== END 2021-05-30 15:10 | disposition home or self-care (01) ==
PROVIDERS: Emergency Provider Emergency Medicine
DX: J45.51 Severe persistent asthma with (acute) exacerbation (principal); Z86.16 Personal history of COVID-19
CPT/HCPCS: 36415; 71045; 80048; 85025; 96360; 99284; 99291

== ENCOUNTER 2021-07-02 16:16 | Emergency (ER) | payer MEDICAID, SELFPAY ==
--- NOTE | ~2021-07-02 | XR_ITS ---
EXAMINATION: XR CHEST CLINICAL INFORMATION: Shortness of breath and wheezing COMPARISON: May 30, 2021 TECHNIQUE: AP portable view of the chest was obtained. FINDINGS: No significant abnormality is noted involving the heart, lungs, mediastinum, bony thorax or soft tissues. XR/XR chest 1V IMPRESSION: No acute disease.
--- NOTE | 2021-07-02 16:20 | ED_ITS ---
HPI - Asthma General Chief Complaint: Dyspnea Stated Complaint: asthma Time Seen by Provider: 07/02/21 16:19 Source: patient and EMS Mode of arrival: EMS Limitations: no limitations History of Present Illness HPI Narrative: 26-year-old male with a history of asthma with frequent exacerbations history of acute hypoxic respiratory failure secondary to COVID-19 pneumonia in April 2021, who presents to the ER with wheezing and acute asthma exacerbation that started 2 days ago. He does not know a trigger but reports his symptoms started pretty suddenly. He states he has been using his albuterol inhaler without any improvement. He reports having a dry cough and significant wheezing, no fever or chills. No known chemical or allergen exposure. 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 He called EMS today when he could not catch his breath. EMS found patient satting in the low to mid 90s with respiratory rates in the 30s. He was diffusely wheezy received DuoNeb in route. He is starting to feel better on arrival. MD complaint: asthma attack , shortness of breath and wheezing Onset (ago): day(s) (2) Severity: moderate Context: none known Associated symptoms: dry cough Asthma History: history of frequent attacks Treatments Prior to Arrival: inhaled bronchodilator Related Data Current Asthma Therapy: inhaled bronchodilator and inhaled steroid Home Medications Medication Instructions Recorded Confirmed albuterol sulfate 90 mcg/actuation 1 puff PO Q6H PRN 02/19/21 04/30/21 aerosol inhaler Previous Rx's Medication Instructions Recorded albuterol sulfate 2.5 mg (3 mL) INHALATION Q4-6H PRN 02/20/21 30 Days ml dexamethasone 6 mg tablet 6 mg PO DAILY #7 tab 04/27/21 prednisone 20 mg tablet 40 mg PO DAILY 4 Days #8 tab 05/18/21 albuterol sulfate 2.5 mg (3 mL) INHALATION Q4-6H PRN 05/23/21 #180 ml prednisone 20 mg tablet 40 mg PO DAILY #10 tab 05/23/21 albuterol sulfate 90 mcg/actuation 2 puff INHALATION QID PRN #6.7 g 05/30/21 aerosol inhaler fluticasone 500 mcg-salmeterol 50 1 inh INHALATION BID #60 ea 05/30/21 mcg/dose blistr powdr for inhalation (Advair Diskus) prednisone 20 mg tablet 40 mg PO DAILY 5 Days #10 tab 05/30/21 albuterol sulfate 90 mcg/actuation 1 inh INHALATION QID PRN #6.7 g 07/02/21 aerosol inhaler azithromycin 250 mg tablet See Rx Instructions .ROUTE 07/02/21 (Zithromax Z-Arvind) .COMPLEX #6 tab fluticasone 500 mcg-salmeterol 50 1 inh INHALATION BID #60 ea 07/02/21 mcg/dose blistr powdr for inhalation (Advair Diskus) prednisone 10 mg tablets in a dose 10 mg PO PER PKG DIR #48 ea 07/02/21 pack Allergies Allergy/AdvReac Type Severity Reaction Status Date / Time shellfish derived Allergy Severe SHORTNESS Verified 05/23/21 18:51 OF BREATH, SWELLING shrimp Allergy Severe ANAPHYLAXIS Verified 05/23/21 18:51 Review of Systems Review of Systems: Constitutional: No Fever, No Chills ENT/Mouth: No sore throat, No Rhinorrhea, No Swallowing Difficulty Eyes: No Eye Pain, No Swelling, No Redness Cardiovascular: No Chest Pain, + SOB, No Orthopnea, No Edema Respiratory: + Cough, No Sputum, + Wheezing, +dyspnea Gastrointestinal: No Nausea, No Vomiting, No Diarrhea, No abdominal Pain Genitourinary: No Dysuria, No Urinary Frequency, No Hematuria Musculoskeletal: No joint pain, No Myalgias Skin: No Skin Lesions, No rash Neuro: No Weakness, No Headache Psych: + Anxiety/Panic, No Depression Heme/Lymph: No Lymphadenopathy PMFSH Past Medical History Medical History Asthma Asthma Pneumonia due to 2019 novel coronavirus Surgical History No significant past surgical history Family History Family History Mother Asthma Social History Social History Household Members: None Housing: House Do you presently have visiting nurse or other home services: No Alcohol intake: never Patient Tobacco Use Status: Never used Tobacco Advance Directives: No Advance Directives Information Provided: Yes service: No Current occupational status: unemployed Physical Exam Vital Signs: Vital Signs: Last Vital Signs Pulse 97 07/02/21 18:03 Resp 20 11/19/21 17:18 BP 131/83 07/02/21 17:18 Pulse Ox 94 07/02/21 17:18 Body Mass Index 33.3 Appearance: Alert. Oriented X3. Sitting upright in the stretcher with a breathing treatment in process. Eyes: Pupils equal, round and reactive to light. ENT: Pharynx normal. Neck: Normal inspection. Neck supple. CVS: Tachycardic regular rhythm. Pulses normal. Respiratory: Mild respiratory distress. Breath sounds with diffuse inspiratory and expiratory wheezes throughout with prolonged expiratory phase. Respiratory rate low 20s. Able to speak in complete sentences. Abdomen: Soft and nontender. +BS x4 Skin: Skin warm and dry. Normal skin color. Normal skin turgor. No rashes. Extremities: No lower extremity edema. No calf tenderness. Neuro: Oriented X 3. No motor deficit. No sensory deficit. Course Course Course Narrative: 26-year-old male with a history of asthma and frequent exacerbations, recent COVID-19 pneumonia 2 months ago who presents to the ER with acute onset of shortness of breath, wheezing consistent with acute asthma exacerbation. No known trigger. Tachypneic on EMS arrival to the 40s. He feels much better after DuoNeb but remains diffusely wheezy. Will give an hour long albuterol treatment, check a chest x-ray and COVID swab. IV Solu-Medrol and IV magnesium also ordered given patient's presentation. Reevaluation(s) Reevaluation #1: Chest x-ray is clear, COVID is negative. After our long albuterol treatment patient feels significantly improved. His saturations are 95 96% on room air any feels much better. He is stable for discharge home with treatment for acute asthma exacerbation. Refill of his Advair also ordered, instructed not to take was on oral prednisone taper. Stable for discharge home with outpatient follow-up and will refer to pulmonology. Patient agreeable with plan. MDM - Asthma Lab Data Labs: Lab Results 07/02/21 Range/Units 16:51 COVID-19 ([facility]) Negative (Negative) COVID-19 Clin Com See Note Critical Care Time Critical Care Time Critical Care Time: Yes Total Critical Care Time: 35 Attestation: I have personally provided critical care time exclusive of time spent on separately billable procedures. Time includes review of lab data, radiology results, frequent bedside reassessments of respiratory status and monitoring for potential decompensation. Intervention performed as documented. Discharge Plan Discharge Clinical Impression: Asthma with exacerbation Qualifiers: Asthma severity: moderate Asthma persistence: persistent Qualified Code(s): J45.41 - Moderate persistent asthma with (acute) exacerbation Patient Disposition: Home, Self-Care Instructions: Asthma (ED) Additional Instructions: Your COVID test was negative. Your chest x-ray was clear. Recommend taking the prescribed medications as directed. 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 - name and number listed below Prescriptions: New azithromycin [Zithromax Z-Arvind] 250 mg tablet See Rx Instructions .ROUTE .COMPLEX Qty: 6 RF: 0 prednisone 10 mg tablets,dose pack 10 mg PO PER PKG DIR Qty: 48 RF: 0 albuterol sulfate 90 mcg/actuation HFA aerosol inhaler 1 inh inhalation QID PRN (Reason: shortness of breath or wheezing) Qty: 6.7 RF: 0 fluticasone propion-salmeterol [Advair Diskus] 500-50 mcg/dose blister with device 1 inh inhalation BID Qty: 60 RF: 0 No Action dexamethasone 6 mg tablet 6 mg PO DAILY Qty: 7 RF: 0 albuterol sulfate 90 mcg/actuation HFA aerosol inhaler 1 puff PO Q6H PRN (Reason: wheezing) RF: 0 albuterol sulfate 2.5 mg /3 mL (0.083 %) solution for nebulization 2.5 mg inhalation Q4-6H PRN (Reason: bronchospasm) 30 Days RF: 0 albuterol sulfate 2.5 mg /3 mL (0.083 %) solution for nebulization 2.5 mg inhalation Q4-6H PRN (Reason: shortness of breath or wheezing) Qty: 180 RF: 0 prednisone 20 mg tablet 40 mg PO DAILY Qty: 10 RF: 0 prednisone 20 mg tablet 40 mg PO DAILY 5 Days Qty: 10 RF: 0 albuterol sulfate 90 mcg/actuation HFA aerosol inhaler 2 puff inhalation QID PRN (Reason: shortness of breath or wheezing) Qty: 6.7 RF: 0 fluticasone propion-salmeterol [Advair Diskus] 500-50 mcg/dose blister with device 1 inh inhalation BID Qty: 60 RF: 0 prednisone 20 mg tablet 40 mg PO DAILY 4 Days Qty: 8 RF: 0 Referrals: Kip Bellamy MD [Physician] - 2 days (poorly controlled asthma with frequent exacerbations) Stand Alone Forms: Work/School Release
[2021-07-02 16:26] VITALS: BP 135/80; BP 172/52; PULSE 105; RESP 20; O2SAT 90; O2SAT 98; BMI 33.3
[2021-07-02] MEDS: Magnesium Sulfate/H2O 2 GM/50 ML PIGGYBACK IV (17:15)
[2021-07-02] MEDS: methylPREDNISolone Sod Succ 125 MG/2 ML VIAL IVPUSH (17:15)
[2021-07-02 17:18] VITALS: BP 131/83; PULSE 100; RESP 20; O2SAT 94
[2021-07-02 17:40] LABS: COVID-19 Test Negative (Negative); IDNOW Serial# 9DD0AD1C
[2021-07-02] MEDS: Albuterol Sulfate (0.083%) 2.5 MG/3 ML VIAL.NEB 10 MG INHALE (18:02)
[2021-07-02 18:03] VITALS: PULSE 97; O2SAT 92
[2021-07-02 20:05] VITALS: BP 137/80; PULSE 110; RESP 20; O2SAT 93
== END 2021-07-02 20:11 | disposition home or self-care (01) ==
PROVIDERS: Physician Assistant; Emergency Provider Emergency Medicine Emergency Medical Services
DX: J45.41 Moderate persistent asthma with (acute) exacerbation (principal); Z20.822 Contact with and (suspected) exposure to COVID-19
CPT/HCPCS: 36415; 71045; 87635; 94640; 94644; 96365; 96366; 96375; 99283; 99291; J2930; J3475

== ENCOUNTER 2021-09-14 22:56 | Emergency (ER) | payer MEDICAID, SELFPAY ==
--- NOTE | 2021-09-14 23:17 | ED_ITS ---
HPI - Asthma General Chief Complaint: Dyspnea Stated Complaint: SOB Time Seen by Provider: 09/14/21 23:16 Source: patient Mode of arrival: EMS History of Present Illness HPI Narrative: Patient history of asthma history of COVID in the past with frequent ED visits for asthma attack comes here for increased shortness of breath just prior to arrival use inhaler without much response patient does not have a nebulizer machine at home received 1 treatment by EMS Related Data Home Medications Medication Instructions Recorded Confirmed albuterol sulfate 90 mcg/actuation 1 puff PO Q6H PRN 02/19/21 04/30/21 aerosol inhaler Previous Rx's Medication Instructions Recorded albuterol sulfate 2.5 mg (3 mL) INHALATION Q4-6H 02/20/21 PRN 30 Days ml dexamethasone 6 mg tablet 6 mg PO DAILY #7 tab 04/27/21 prednisone 20 mg tablet 40 mg PO DAILY 4 Days #8 tab 05/18/21 albuterol sulfate 2.5 mg (3 mL) INHALATION Q4-6H 05/23/21 PRN #180 ml prednisone 20 mg tablet 40 mg PO DAILY #10 tab 05/23/21 albuterol sulfate 90 mcg/actuation 2 puff INHALATION QID PRN #6.7 g 05/30/21 aerosol inhaler fluticasone 500 mcg-salmeterol 50 1 inh INHALATION BID #60 ea 05/30/21 mcg/dose blistr powdr for inhalation (Advair Diskus) prednisone 20 mg tablet 40 mg PO DAILY 5 Days #10 tab 05/30/21 albuterol sulfate 90 mcg/actuation 1 inh INHALATION QID PRN #6.7 g 07/02/21 aerosol inhaler azithromycin 250 mg tablet See Rx Instructions .ROUTE 07/02/21 (Zithromax Z-Arvind) .COMPLEX #6 tab fluticasone 500 mcg-salmeterol 50 1 inh INHALATION BID #60 ea 07/02/21 mcg/dose blistr powdr for inhalation (Advair Diskus) prednisone 10 mg tablets in a dose 10 mg PO PER PKG DIR #48 ea 07/02/21 pack albuterol sulfate 2.5 mg (3 mL) INHALATION Q6-8H 09/15/21 PRN #90 ml dexamethasone 6 mg tablet 6 mg PO DAILY #7 tab 09/15/21 (Decadron) nebulizer and compressor #1 ea 09/15/21 Allergies Allergy/AdvReac Type Severity Reaction Status Date / Time shellfish derived Allergy Severe SHORTNESS Verified 05/23/21 18:51 OF BREATH, SWELLING shrimp Allergy Severe ANAPHYLAXIS Verified 05/23/21 18:51 Review of Systems Verdana 4l Review of Systems: Yes all other systems are reviewed and Verdana 4d are negative [facility] Past Medical History Medical History (Updated 09/15/21 @ 00:41 by Leno Smiley MD) Asthma Asthma Pneumonia due to 2019 novel coronavirus Surgical History No significant past surgical history Family History Family History Mother Asthma Social History Social History Household Members: None Housing: House Do you presently have visiting nurse or other home services: No Alcohol intake: never Patient Tobacco Use Status: Never used Tobacco Advance Directives: No service: No Current occupational status: unemployed Physical Exam Verdana 4l Vital Signs: Verdana 4d Verdana 4d Vital Signs: Verdana 4d Verdana 4Bd Last Vital Signs Verdana 4d Arc Welder Apprentice New 4d Arc Welder Apprentice New 4d Temp 98.4 F 09/14/21 23:32 Arc Welder Apprentice New 4d Pulse 90 09/15/21 00:28 Arc Welder Apprentice New 4d Resp 18 09/15/21 00:28 BP 154/87 H 09/15/21 00:28 Pulse Ox 94 09/15/21 00:28 BMI result Body Mass Index 34.9 Appearance: Alert. Oriented X3. In mild distress ENT: Pharynx normal. Oral Mucosa moist Neck: Normal inspection. Neck supple. CVS: Normal heart rate and rhythm. Pulses normal. Respiratory: Mod respiratory distress. Equal air entry bilateral, bilateral wheezing Abdomen: Soft and nontender. Bowel sounds are present, Skin: Skin warm and dry. Normal skin color. Normal skin turgor. Extremities: No lower extremity edema. No calf tenderness Neuro: Oriented X 3. MDM - Asthma MDM Narrative Medical decision making narrative: Patient with asthma with frequent ED visits comes here with episode of asthma and for last 2 hours felt better after p.o. Decadron and nebulizing treatment will discharge patient home on Decadron and nebulizer for home, patient satur ating 94% on room air Discharge Plan Discharge Clinical Impression: Asthma with exacerbation Patient Disposition: Home, Self-Care Instructions: Asthma (ED) Additional Instructions: Use your inhaler and nebulizer treatment every 4-6 hours as needed Decadron as advised Follow-up with lung specialist Prescriptions: New dexamethasone [Decadron] 6 mg tablet 6 mg PO DAILY Qty: 7 0RF (DME) nebulizer and compressor Device See Rx Instructions .Route Qty: 1 0RF Rx Instructions: As directed albuterol sulfate 2.5 mg /3 mL (0.083 %) solution for nebulization 2.5 mg inhalation Q6-8H PRN (Reason: shortness of breath or wheezing) Qty: 90 0RF No Action dexamethasone 6 mg tablet 6 mg PO DAILY Qty: 7 0RF albuterol sulfate 90 mcg/actuation HFA aerosol inhaler 1 puff PO Q6H PRN (Reason: wheezing) 0RF albuterol sulfate 2.5 mg /3 mL (0.083 %) solution for nebulization 2.5 mg inhalation Q4-6H PRN (Reason: bronchospasm) 30 Days 0RF albuterol sulfate 2.5 mg /3 mL (0.083 %) solution for nebulization 2.5 mg inhalation Q4-6H PRN (Reason: shortness of breath or wheezing) Qty: 180 0RF prednisone 20 mg tablet 40 mg PO DAILY Qty: 10 0RF prednisone 20 mg tablet 40 mg PO DAILY 5 Days Qty: 10 0RF albuterol sulfate 90 mcg/actuation HFA aerosol inhaler 2 puff inhalation QID PRN (Reason: shortness of breath or wheezing) Qty: 6.7 0RF fluticasone propion-salmeterol [Advair Diskus] 500-50 mcg/dose blister with device 1 inh inhalation BID Qty: 60 0RF prednisone 20 mg tablet 40 mg PO DAILY 4 Days Qty: 8 0RF azithromycin [Zithromax Z-Arvind] 250 mg tablet See Rx Instructions .ROUTE .COMPLEX Qty: 6 0RF Rx Instructions: take 500 mg today (day 1), then 250 mg for 4 days (days 2-5) prednisone 10 mg tablets,dose pack 10 mg PO PER PKG DIR Qty: 48 0RF Rx Instructions: take 4 tabs x4 days, then 3 tabs x4 days, then 2 tabs x4 days, then 1 tab x4 days. discard remainder albuterol sulfate 90 mcg/actuation HFA aerosol inhaler 1 inh inhalation QID PRN (Reason: shortness of breath or wheezing) Qty: 6.7 0RF fluticasone propion-salmeterol [Advair Diskus] 500-50 mcg/dose blister with device 1 inh inhalation BID Qty: 60 0RF Referrals: John Rios MD [Physician] - 1 week
[2021-09-14 23:32] VITALS: BP 132/84; BP 151/89; PULSE 80; PULSE 91; RESP 24; TEMP 36.9; O2SAT 94; O2SAT 98; BMI 34.9
[2021-09-14] MEDS: dexAMETHasone 2 MG TABLET 10 MG PO (23:42)
[2021-09-14] MEDS: Albuterol/Iprat 2.5/0.5MG 3 ML AMPUL.NEB INHALE (23:49)
[2021-09-14] MEDS: Albuterol Sulfate (0.083%) 2.5 MG/3 ML VIAL.NEB 7.5 MG INHALE (23:49)
[2021-09-14 23:50] VITALS: PULSE 100; RESP 20; O2SAT 94
[2021-09-15 00:28] VITALS: BP 154/87; PULSE 90; RESP 18; O2SAT 94
== END 2021-09-15 00:57 | disposition home or self-care (01) ==
PROVIDERS: Emergency Provider Internal Medicine
DX: J45.901 Unspecified asthma with (acute) exacerbation (principal); R06.02 Shortness of breath; Z79.899 Other long term (current) drug therapy
CPT/HCPCS: 94640; 94644; 99284; J8540

== ENCOUNTER 2022-04-18 20:39 | Emergency (ER) | payer MEDICAID, SELFPAY ==
[2022-04-18 20:44] VITALS: BP 154/98; PULSE 113; RESP 24; TEMP 36.8; O2SAT 96; BMI 34.9
[2022-04-18] MEDS: methylPREDNISolone Sod Succ 125 MG/2 ML VIAL IVPUSH (21:02)
[2022-04-18] MEDS: Magnesium Sulfate/H2O 2 GM/50 ML PIGGYBACK IV (21:02)
--- NOTE | 2022-04-18 21:03 | PC.NURSE ---
patient a&ox3, pt speaking in full sentencs, in/ex wheezing throughout, specialty sales representative applied, nsr/st, iv inserted, pt medicated per order, will call rt for breathing treatment, will continue to monitor
[2022-04-18 21:06] VITALS: PULSE 102; RESP 12; O2SAT 96
[2022-04-18] MEDS: Albuterol/Iprat 2.5/0.5MG 3 ML AMPUL.NEB INHALE (21:06)
--- NOTE | 2022-04-18 21:08 | ED.ASTHMA ---
HPI - Asthma General Chief Complaint: Asthma Stated Complaint: asthma Time Seen by Provider: 04/18/22 20:45 Source: patient Mode of arrival: ambulatory Limitations: no limitations History of Present Illness HPI Narrative: 27-year-old male with a history of severe persistent asthma presents with 2 days of cough and wheezing unrelieved with home albuterol MDI and nebulizer machine. Patient tells me he believes he is being triggered by the weather due to the alternating humidity and heat. No recent URI symptoms. No fevers or chills. No sick contact or recent travel. Related Data Home Medications Medication Instructions Recorded Confirmed albuterol sulfate 90 mcg/actuation 1 puff PO Q6H PRN wheezing 02/19/21 04/30/21 aerosol inhaler Previous Rx's Medication Instructions Recorded albuterol sulfate 2.5 mg/3 mL 2.5 mg (3 mL) inhalation Q4-6H PRN 02/20/21 (0.083 %) solution for nebulization bronchospasm 30 days dexamethasone 6 mg tablet 6 mg PO DAILY #7 tabs 04/27/21 prednisone 20 mg tablet 40 mg PO DAILY 4 days #8 tabs 05/18/21 albuterol sulfate 2.5 mg/3 mL 2.5 mg (3 mL) inhalation Q4-6H PRN 05/23/21 (0.083 %) solution for nebulization shortness of breath or wheezing #180 mL prednisone 20 mg tablet 40 mg PO DAILY #10 tabs 05/23/21 albuterol sulfate 90 mcg/actuation 2 puff inhalation QID PRN 05/30/21 aerosol inhaler shortness of breath or wheezing #6.7 grams fluticasone 500 mcg-salmeterol 50 1 inh inhalation BID #60 ea 05/30/21 mcg/dose blistr powdr for inhalation (Advair Diskus) prednisone 20 mg tablet 40 mg PO DAILY 5 days #10 tabs 05/30/21 albuterol sulfate 90 mcg/actuation 1 inh inhalation QID PRN shortness 07/02/21 aerosol inhaler of breath or wheezing #6.7 grams azithromycin 250 mg tablet See Rx Instructions PO .COMPLEX #6 07/02/21 (Zithromax Z-Arvind) tabs fluticasone 500 mcg-salmeterol 50 1 inh inhalation BID #60 ea 11/19/21 mcg/dose blistr powdr for inhalation (Advair Diskus) prednisone 10 mg tablets in a dose 10 mg PO PER PKG DIR #48 ea 07/02/21 pack albuterol sulfate 2.5 mg/3 mL 2.5 mg (3 mL) inhalation Q6-8H PRN 09/15/21 (0.083 %) solution for nebulization shortness of breath or wheezing #90 mL dexamethasone 6 mg tablet 6 mg PO DAILY #7 tabs 09/15/21 (Decadron) nebulizer and compressor #1 ea 09/15/21 albuterol sulfate 2.5 mg/3 mL 2.5 mg (3 mL) inhalation QID PRN 04/18/22 (0.083 %) solution for nebulization shortness of breath or wheezing #180 mL albuterol sulfate 90 mcg/actuation 2 puff inhalation Q4-6H PRN 04/18/22 aerosol inhaler shortness of breath or wheezing #8.5 grams fluticasone 100 mcg-salmeterol 50 1 inh inhalation BID #60 ea 04/18/22 mcg/dose blistr powdr for inhalation (Advair Diskus) nebulizers (Aeroneb Go Nebulizer) #1 ea 04/18/22 prednisone 20 mg tablet 40 mg PO DAILY #10 tabs 04/18/22 Allergies Allergy/AdvReac Type Severity Reaction Status Date / Time shellfish derived Allergy Severe SHORTNESS Verified 05/23/21 18:51 OF BREATH, SWELLING shrimp Allergy Severe ANAPHYLAXIS Verified 05/23/21 18:51 Review of Systems Review of Systems: Yes all other systems are reviewed and are negative Constitutional: Constitutional: Reports no additional constitutional complaints, Denies body ache(s), Denies chills, Denies fever(s), Denies headache(s) and Denies weakness Eyes: Eyes: Reports no additional eye complaints and Denies change in vision ENT: Reports system reviewed and no additional complaints, except as documented, Denies dizziness, Denies headache(s), Denies nasal congestion, Denies nasal discharge and Denies neck pain Cardiovascular: Cardiovascular: Reports no additional cardiovascular complaints, Denies chest pain, Denies leg edema and Denies dyspnea Respiratory: Respiratory: Reports no additional respiratory complaints, Denies cough, Denies dyspnea and Reports wheezing Gastrointestinal: Gastrointestinal: Reports no additional gastrointestinal complaints, Denies abdominal pain, Denies diarrhea, Denies nausea and Denies vomiting Genitourinary: Genitourinary: Denies urinary incontinence Musculoskeletal: Musculoskeletal: Reports no additional musculoskeletal complaints, Denies back pain, Denies arthralgias, Denies joint swelling, Denies neck pain, Denies numbness and Denies tingling Integumentary/Breasts: Skin/Breast: Reports system reviewed and no additional complaints, except as docu and Denies rash Neurologic: Reports system reviewed and no additional complaints, except as documented, Denies Abnormal speech present, Denies dizziness, Denies headache(s), Denies numbness, Denies tingling and Denies weakness Allergic/Immunologic: Allergic/Immunologic: Reports wheezing PMFSH Past Medical History Attestation statement: The following information was validated with the patient. Source: old records reviewed and nursing notes reviewed Medical History Asthma Asthma Pneumonia due to 2019 novel coronavirus Family History Family History Mother Asthma Social History Social History Household Members: None Housing: House Do you presently have visiting nurse or other home services: No Alcohol intake: never Patient Tobacco Use Status: Never used Tobacco Use of substances other than those prescribed or required for medical reasons: No Advance Directives: No Advance Directives Information Provided: No service: No Current occupational status: unemployed Physical Exam Vital Signs: Vital Signs: Last Vital Signs Temp 98.2 F 04/18/22 20:44 Pulse 96 04/18/22 21:21 Resp 17 04/18/22 21:21 BP 148/71 H 04/18/22 21:21 Pulse Ox 93 04/18/22 21:21 O2 Del Method 04/18/22 21:21 BMI result Body Mass Index 34.9 Const: General: cooperative, healthy appearing, comfortable and no acute distress Orientation/consciousness: patient oriented x3 Limitations: no limitations HEENT: Head: Yes normal to inspection Ears: hearing grossly normal bilaterally General nose exam: Normal external nose present Face and sinus: Yes normal facial exam Mouth: Normal oral and palatal mucosa present Throat: Yes posterior oropharynx normal Eyes: General: appearance normal, both eyes and all related structures Pupils: Equal, round and reactive pupils present Neck: Neck: Yes normal visual inspection Chest: Chest palpation & inspection: normal inspection of the chest Resp: Other: Inspiratory and expiratory wheezing throughout. Patient has tachypnea with rate of 24. Cardio: Rate: regular rate Rhythm: regular rhythm Peripheral pulses: Peripheral pulses 2+ throughout GI: Inspection: Yes normal to inspection Palpation (GI): Soft to palpation and nontender Auscultation: normal bowel sounds Back/Spine/Pelvis: Thoracic/Lumbar Spine: thoracic and lumbar spine normal to inspection Skin: General skin exam: no rashes or lesions noted Neuro: General: patient oriented x3, no focal motor deficits and normal sensation to monofilament Cranial nerves: Yes Equal, round and reactive pupils present Cognition (Neuro): normal cognition Speech: No Abnormal speech present Gait exam (Neuro): Normal gait present Motor exam (neuro): 5/5 motor strength present throughout Extrem: General: Yes normal to inspection, Yes no pedal edema and Yes no calf tenderness Course Course Course Narrative: 2119-repeat LS CTA. Will monitor for brief time. Reevaluation(s) Reevaluation #1: 2300-patient feels well. Lungs are clear throughout. Patient needs refill for his albuterol, nebulizer and machine as well as Advair. Will send home with brief course of prednisone as well. Reviewed worrisome signs and symptoms of when to return to the emergency department. Comfortable discharge home. MDM - Asthma MDM Narrative Medical decision making narrative: This is a 27-year-old male who has a history of severe persistent asthma who presents with 2 days of asthma symptoms. On arrival patient is tachypneic, tachycardic with wheezing throughout. Patient will be given Solu-Medrol 125, magnesium 2 g and a DuoNeb. Medical Records Attestation: I reviewed the patient's medical records. Lab Data Attestation: I reviewed the patient's lab results. Discharge Plan Discharge Clinical Impression: Asthma Patient Disposition: Home, Self-Care Instructions: Asthma (ED) Prescriptions: New prednisone 20 mg tablet 40 mg PO DAILY Qty: 10 0RF albuterol sulfate 90 mcg/actuation HFA aerosol inhaler 2 puff inhalation Q4-6H PRN (Reason: shortness of breath or wheezing) Qty: 8.5 0RF albuterol sulfate 2.5 mg /3 mL (0.083 %) solution for nebulization 2.5 mg inhalation QID PRN (Reason: shortness of breath or wheezing) Qty: 180 0RF (DME) nebulizers [Aeroneb Go Nebulizer] [facility] [place] See Rx Instructions .Route Qty: 1 0RF Rx Instructions: As directed fluticasone propion-salmeterol [Advair Diskus] 100-50 mcg/dose blister with device 1 inh inhalation BID Qty: 60 0RF No Action dexamethasone 6 mg tablet 6 mg PO DAILY Qty: 7 0RF albuterol sulfate 90 mcg/actuation HFA aerosol inhaler 1 puff PO Q6H PRN (Reason: wheezing) albuterol sulfate 2.5 mg /3 mL (0.083 %) solution for nebulization 2.5 mg inhalation Q4-6H PRN (Reason: bronchospasm) 30 Days 0RF albuterol sulfate 2.5 mg /3 mL (0.083 %) solution for nebulization 2.5 mg inhalation Q4-6H PRN (Reason: shortness of breath or wheezing) Qty: 180 0RF prednisone 20 mg tablet 40 mg PO DAILY Qty: 10 0RF prednisone 20 mg tablet 40 mg PO DAILY 5 Days Qty: 10 0RF albuterol sulfate 90 mcg/actuation HFA aerosol inhaler 2 puff inhalation QID PRN (Reason: shortness of breath or wheezing) Qty: 6.7 0RF fluticasone propion-salmeterol [Advair Diskus] 500-50 mcg/dose blister with device 1 inh inhalation BID Qty: 60 0RF prednisone 20 mg tablet 40 mg PO DAILY 4 Days Qty: 8 0RF azithromycin [Zithromax Z-Arvind] 250 mg tablet See Rx Instructions .ROUTE .COMPLEX Qty: 6 0RF Rx Instructions: take 500 mg today (day 1), then 250 mg for 4 days (days 2-5) prednisone 10 mg tablets,dose pack 10 mg PO PER PKG DIR Qty: 48 0RF Rx Instructions: take 4 tabs x4 days, then 3 tabs x4 days, then 2 tabs x4 days, then 1 tab x4 days. discard remainder albuterol sulfate 90 mcg/actuation HFA aerosol inhaler 1 inh inhalation QID PRN (Reason: shortness of breath or wheezing) Qty: 6.7 0RF fluticasone propion-salmeterol [Advair Diskus] 500-50 mcg/dose blister with device 1 inh inhalation BID Qty: 60 0RF dexamethasone [Decadron] 6 mg tablet 6 mg PO DAILY Qty: 7 0RF (DME) nebulizer and compressor Device See Rx Instructions .Route Qty: 1 0RF Rx Instructions: As directed albuterol sulfate 2.5 mg /3 mL (0.083 %) solution for nebulization 2.5 mg inhalation Q6-8H PRN (Reason: shortness of breath or wheezing) Qty: 90 0RF Referrals: Physician,None [Primary Care Provider] -
[2022-04-18 21:21] VITALS: BP 148/71; PULSE 96; RESP 17; O2SAT 93
== END 2022-04-18 23:20 | disposition home or self-care (01) ==
PROVIDERS: Emergency Provider Emergency Medicine
DX: J45.909 Unspecified asthma, uncomplicated (principal); R00.0 Tachycardia, unspecified
CPT/HCPCS: 94640; 96374; 96375; 99284; 99285; J2930; J3475

== ENCOUNTER 2022-04-24 02:42 | Observation (INO) | payer MEDICAID, SELFPAY ==
[2022-04-24] VITALS (7 sets, daily range): BP systolic 142–158; BP diastolic 73–93; PULSE 107–131; RESP 14–22; TEMP 36.9–37.4; O2SAT 94–99; BMI 34.9
--- NOTE | ~2022-04-24 | XR_ITS ---
EXAMINATION: XR CHEST CLINICAL INFORMATION: Shortness of breath. COMPARISON: Chest done on 07/02/2021. TECHNIQUE: Frontal view of the chest was obtained. FINDINGS: No significant abnormality is noted involving the heart, lungs, mediastinum, bony thorax or soft tissues. XR/XR chest 1V IMPRESSION: Unremarkable examination. No significant change.
--- NOTE | 2022-04-24 03:22 | ED_ITS ---
HPI - Asthma General Chief Complaint: Asthma Stated Complaint: asthma Time Seen by Provider: 04/24/22 03:17 Source: patient Mode of arrival: ambulatory Limitations: no limitations History of Present Illness HPI Narrative: patient comes to the emergency room complaining of an asthma exacerbation. Patient was seen here 5 days ago for the same complaint. Patient states that he forgot all of his prescribed medication in his brother's car, patient has not had any prednisone since he was discharged. Patient states that prior to coming to the emergency room, he uses inhaler multiple times and nebulization treatment with no relief. Patient denies chest pain. Denies fever or chills. Related Data Home Medications Medication Instructions Recorded Confirmed albuterol sulfate 90 mcg/actuation 1 puff PO Q6H PRN wheezing 02/19/21 04/30/21 aerosol inhaler Previous Rx's Medication Instructions Recorded albuterol sulfate 2.5 mg/3 mL 2.5 mg (3 mL) inhalation Q4-6H PRN 02/20/21 (0.083 %) solution for nebulization bronchospasm 30 days dexamethasone 6 mg tablet 6 mg PO DAILY #7 tabs 04/27/21 prednisone 20 mg tablet 40 mg PO DAILY 4 days #8 tabs 05/18/21 albuterol sulfate 2.5 mg/3 mL 2.5 mg (3 mL) inhalation Q4-6H PRN 05/23/21 (0.083 %) solution for nebulization shortness of breath or wheezing #180 mL prednisone 20 mg tablet 40 mg PO DAILY #10 tabs 05/23/21 albuterol sulfate 90 mcg/actuation 2 puff inhalation QID PRN 05/30/21 aerosol inhaler shortness of breath or wheezing #6.7 grams fluticasone 500 mcg-salmeterol 50 1 inh inhalation BID #60 ea 05/30/21 mcg/dose blistr powdr for inhalation (Advair Diskus) prednisone 20 mg tablet 40 mg PO DAILY 5 days #10 tabs 05/30/21 albuterol sulfate 90 mcg/actuation 1 inh inhalation QID PRN shortness 07/02/21 aerosol inhaler of breath or wheezing #6.7 grams azithromycin 250 mg tablet See Rx Instructions PO .COMPLEX #6 07/02/21 (Zithromax Z-Arvind) tabs fluticasone 500 mcg-salmeterol 50 1 inh inhalation BID #60 ea 07/02/21 mcg/dose blistr powdr for inhalation (Advair Diskus) prednisone 10 mg tablets in a dose 10 mg PO PER PKG DIR #48 ea 07/02/21 pack albuterol sulfate 2.5 mg/3 mL 2.5 mg (3 mL) inhalation Q6-8H PRN 09/15/21 (0.083 %) solution for nebulization shortness of breath or wheezing #90 mL dexamethasone 6 mg tablet 6 mg PO DAILY #7 tabs 09/15/21 (Decadron) nebulizer and compressor #1 ea 09/15/21 albuterol sulfate 2.5 mg/3 mL 2.5 mg (3 mL) inhalation QID PRN 04/18/22 (0.083 %) solution for nebulization shortness of breath or wheezing #180 mL albuterol sulfate 90 mcg/actuation 2 puff inhalation Q4-6H PRN 04/18/22 aerosol inhaler shortness of breath or wheezing #8.5 grams fluticasone 100 mcg-salmeterol 50 1 inh inhalation BID #60 ea 04/18/22 mcg/dose blistr powdr for inhalation (Advair Diskus) nebulizers (Aeroneb Go Nebulizer) #1 ea 04/18/22 prednisone 20 mg tablet 40 mg PO DAILY #10 tabs 04/18/22 Allergies Allergy/AdvReac Type Severity Reaction Status Date / Time shellfish derived Allergy Severe SHORTNESS Verified 05/23/21 18:51 OF BREATH, SWELLING shrimp Allergy Severe ANAPHYLAXIS Verified 05/23/21 18:51 Review of Systems Review of Systems: Constitutional : No Weight loss, No Fever, No Chills, No Night Sweats, No Fatigue, No Malaise ENT/Mouth : No Hearing loss, No Ear Pain, No Nasal Congestion, No Sinus Pain, No Hoarseness, No sore throat, No Rhinorrhea, No Swallowing Difficulty Eyes: No Eye Pain, No Swelling, No Redness, No Foreign Body, No Discharge, No Vision Changes Cardiovascular : No Chest Pain, No SOB, No Dyspnea on Exertion, No Orthopnea, No Edema, No Palpitations Respiratory : No Cough, No Sputum, Complaining of and Dyspnea Gastrointestinal : No Nausea, No Vomiting, No Diarrhea, No Constipation, No abdominal Pain, No Hematochezia, No Melena Genitourinary : no irregular bleeding, No Dysuria, No Urinary Frequency, No Hematuria, No Urinary Incontinence, No Urgency, No Flank Pain, No Urinary Flow Changes, No Hesitancy Musculoskeletal : No joint pain, No Myalgias, No Joint Swelling Skin : No Skin Lesions, No rash Neuro : No Weakness, No Numbness, No Paresthesias, No Loss of Consciousness, No Dizziness, No Headache Psych : No Anxiety/Panic, No Depression, No SI/HI/AH/VH, No Social Issues, Heme/Lymph: No Bruising, No Bleeding,No Lymphadenopathy Endocrine : No Polyuria, No Polydipsia, No Temperature Intolerance [facility] Past Medical History Medical History Asthma Asthma Pneumonia due to 2019 novel coronavirus Family History Family History Mother Asthma Social History Social History Household Members: None Housing: House Do you presently have visiting nurse or other home services: No Alcohol intake: never Patient Tobacco Use Status: Never used Tobacco Advance Directives: No Advance Directives Information Provided: No service: No Current occupational status: unemployed Physical Exam Vital Signs: Vital Signs: Last Vital Signs Temp 99.4 F 04/24/22 06:00 Pulse 107 H 04/24/22 06:00 Resp 19 04/24/22 06:00 BP 142/79 H 04/24/22 06:00 Pulse Ox 95 04/24/22 06:00 O2 Del Method 04/24/22 06:00 BMI result Body Mass Index 34.9 Const: Other: Appearance: Alert. Oriented X3. mild respiratory distress , speaking full sentences Eyes: Pupils equal, round and reactive to light. ENT: Pharynx normal. Neck: Normal inspection. Neck supple. No lymph nodes noted. No crepitus CVS: Normal heart rate and rhythm. Pulses normal. Normal S1 and S2 Respiratory: mild respiratory distress, bilateral wheezing, decreased breath sounds bilaterally Abdomen: Soft and nontender. No rigidity. No distention. Skin: Skin warm and dry. Normal skin color. Normal skin turgor. Extremities: No lower extremity edema. No Lacerations. No Rash Neuro: Oriented X 3. No motor deficit. No sensory deficit. Moving all extremities. No slurred speech. CN 2 through 12 grossly intact Psych: calm, cooperative, normal affect Course Course Course Narrative: patient has not been taking prednisone as prescribed. Patient is now receiving hour long Nebulization treatments and methylprednisolone., IV magnesium. Patient is still wheezing quite a bit, oxygen saturation in the mid 90s. Patient being admitted for an asthma exacerbation. [facility] - Asthma Lab Data Result diagrams: 04/24/22 03:29 04/24/22 03:29 Labs: Lab Results 04/24/22 04/24/22 Range/Units 03:29 03:29 WBC 12.5 H (4.8-10.8) X10*3/uL RBC 5.28 (4.60-5.80) X10*6/uL Hgb 14.8 (14.0-18.0) g/dl Hct 41.8 L (42.0-52.0) % MCV 79.2 L (80.0-98.0) fL MCH 28.0 (27.0-33.0) pg MCHC 35.4 (31.0-36.0) g/dl RDW 12.3 (11.0-16.0) % Plt Count 323 (160-400) X10*3/uL MPV 9.3 L (9.4-12.4) fL Absolute Nucleated RBC 0.000 (0.0-0.012) X10*3/uL Nucleated RBC % (auto) 0.0 (0.0-0.2) /100WBC Sodium 138 (135-145) mmol/L Potassium 3.6 (3.3-5.1) mmol/L Chloride 105 (96-108) mmol/L Carbon Dioxide 23 (22-29) mmol/L Anion Gap 14 (12-20) BUN 9 (9-16) mg/dL Creatinine 0.84 (0.5-1.4) mg/dL Estim Creat Clear Calc 138.8 Estimated GFR > 60 Random Glucose 146 H (60-115) mg/dL Calcium 8.8 (8.4-10.2) mg/dL Total Bilirubin 0.3 (0.0-1.0) mg/dL AST 26 (5-37) U/L ALT 35 (0-40) U/L Alkaline Phosphatase 87 D (39-117) U/L Total Protein 7.6 (6.5-8.0) g/dL Albumin 4.1 (3.5-5.0) g/dL Critical Care Time Critical Care Time Critical Care Time: Yes Total Critical Care Time: 45 Attestation: I have personally provided critical care time. Time includes review of lab data, radiology results, discussion with consultants, and monitoring for potential decompensation. Intervention performed as documented. Discharge Plan Discharge Clinical Impression: Asthma Patient Disposition: Admitted As Inpatient Prescriptions: No Action dexamethasone 6 mg tablet 6 mg PO DAILY Qty: 7 0RF albuterol sulfate 90 mcg/actuation HFA aerosol inhaler 1 puff PO Q6H PRN (Reason: wheezing) albuterol sulfate 2.5 mg /3 mL (0.083 %) solution for nebulization 2.5 mg inhalation Q4-6H PRN (Reason: bronchospasm) 30 Days 0RF albuterol sulfate 2.5 mg /3 mL (0.083 %) solution for nebulization 2.5 mg inhalation Q4-6H PRN (Reason: shortness of breath or wheezing) Qty: 180 0RF prednisone 20 mg tablet 40 mg PO DAILY Qty: 10 0RF prednisone 20 mg tablet 40 mg PO DAILY 5 Days Qty: 10 0RF albuterol sulfate 90 mcg/actuation HFA aerosol inhaler 2 puff inhalation QID PRN (Reason: shortness of breath or wheezing) Qty: 6.7 0RF fluticasone propion-salmeterol [Advair Diskus] 500-50 mcg/dose blister with device 1 inh inhalation BID Qty: 60 0RF prednisone 20 mg tablet 40 mg PO DAILY 4 Days Qty: 8 0RF azithromycin [Zithromax Z-Arvind] 250 mg tablet See Rx Instructions .ROUTE .COMPLEX Qty: 6 0RF Rx Instructions: take 500 mg today (day 1), then 250 mg for 4 days (days 2-5) prednisone 10 mg tablets,dose pack 10 mg PO PER PKG DIR Qty: 48 0RF Rx Instructions: take 4 tabs x4 days, then 3 tabs x4 days, then 2 tabs x4 days, then 1 tab x4 days. discard remainder albuterol sulfate 90 mcg/actuation HFA aerosol inhaler 1 inh inhalation QID PRN (Reason: shortness of breath or wheezing) Qty: 6.7 0RF fluticasone propion-salmeterol [Advair Diskus] 500-50 mcg/dose blister with device 1 inh inhalation BID Qty: 60 0RF dexamethasone [Decadron] 6 mg tablet 6 mg PO DAILY Qty: 7 0RF (DME) nebulizer and compressor Device See Rx Instructions .Route Qty: 1 0RF Rx Instructions: As directed albuterol sulfate 2.5 mg /3 mL (0.083 %) solution for nebulization 2.5 mg inhalation Q6-8H PRN (Reason: shortness of breath or wheezing) Qty: 90 0RF prednisone 20 mg tablet 40 mg PO DAILY Qty: 10 0RF albuterol sulfate 90 mcg/actuation HFA aerosol inhaler 2 puff inhalation Q4-6H PRN (Reason: shortness of breath or wheezing) Qty: 8.5 0RF albuterol sulfate 2.5 mg /3 mL (0.083 %) solution for nebulization 2.5 mg inhalation QID PRN (Reason: shortness of breath or wheezing) Qty: 180 0RF (DME) nebulizers [Aeroneb Go Nebulizer] Misc See Rx Instructions .Route Qty: 1 0RF Rx Instructions: As directed fluticasone propion-salmeterol [Advair Diskus] 100-50 mcg/dose blister with device 1 inh inhalation BID Qty: 60 0RF
[2022-04-24] MEDS: Albuterol Sulfate (0.083%) 2.5 MG/3 ML VIAL.NEB 10 MG INHALE ×2 (03:29→06:47)
[2022-04-24] MEDS: methylPREDNISolone Sod Succ 125 MG/2 ML VIAL IVPUSH (03:32)
[2022-04-24 03:33] LABS: Hematocrit 41.8 % (42.0-52.0); Hemoglobin 14.8 g/dl (14.0-18.0); Mean Corpuscular HGB Conc 35.4 g/dl (31.0-36.0); Mean Corpuscular Volume 79.2 fL (80.0-98.0); Mean Platelet Volume 9.3 fL (9.4-12.4); Platelet Count 323 X10*3/uL (160-400); Red Blood Count 5.28 X10*6/uL (4.60-5.80); Red Cell Distribution Width 12.3 % (11.0-16.0); White Blood Count 12.5 X10*3/uL (4.8-10.8)
[2022-04-24 03:52] LABS: Alanine Aminotransferase 35 U/L (0-40); Albumin Level 4.1 g/dL (3.5-5.0); Alkaline Phosphatase 87 U/L (39-117); Anion Gap 14 (12-20); Aspartate Amino Transferase 26 U/L (5-37); Bilirubin Total 0.3 mg/dL (0.0-1.0); Blood Urea Nitrogen 9 mg/dL (9-16); Calcium 8.8 mg/dL (8.4-10.2); Carbon Dioxide 23 mmol/L (22-29); Chloride 105 mmol/L (96-108); Creatinine Clr Calc Pharmacy 138.8; Estimated Glomerular Filt Rate > 60; Glucose Random 146 mg/dL (60-115); Potassium 3.6 mmol/L (3.3-5.1); Sodium 138 mmol/L (135-145); Total Protein 7.6 g/dL (6.5-8.0)
[2022-04-24] MEDS: Magnesium Sulfate/H2O 2 GM/50 ML PIGGYBACK IV (07:06)
[2022-04-24 07:34] LABS: COVID-19 Test Negative (Negative); IDNOW Serial# 16C4AD1C
--- NOTE | 2022-04-24 09:09 | PHA.MEDREC ---
Pharmacy Consult ? Medication Reconciliation Pharmacy has completed the medication reconciliation. Spoke to patient. He has had insurance issues and hasnt been able to get meds for the last month
--- NOTE | 2022-04-24 09:31 | PM.IMHP ---
History of Present Illness Date of Service: 04/24/22 Attending physician on admission: Alejandro Alfred Chief Complaint: sob 26-year-old male with a history of asthma with frequent exacerbations history of acute hypoxic respiratory failure secondary to COVID-19 pneumonia in April 2021, who presents to the ER with wheezing and acute asthma exacerbation. ?Patient was seen here 5 days ago for the same complaint.? Patient states that he forgot all of his prescribed medication in his brother's car, patient has not had any prednisone since he was discharged.? Patient states that prior to coming to the emergency room, he uses inhaler multiple times and nebulization treatment with no relief.? Patient was given nebs, steroids in the emergency room has feels minimally response still feels short of breath and tachycardic. Denies any chest pain or abdominal pain or nausea vomiting or fever chills or cough or phlegm. Not vaccinated of for COVID. Patient denies any sick contacts or any recent travel. Patient denies of using any BiPAP or any intubations in the past. Lab imaging reviewed: Has mild leukocytosis trending down. BMP seems fine, chest x-ray negative Review of Systems Review of Systems: As above. Yes all other systems are reviewed and are negative [facility] Medical History Asthma Asthma Pneumonia due to 2019 novel coronavirus Family History Mother Asthma Social History Household Members: None Housing: House Do you presently have visiting nurse or other home services: No Alcohol intake: current Alcohol intake frequency: holidays/special occasions only Patient Tobacco Use Status: Never used Tobacco Smoked in Last 30 Days: No Use of substances other than those prescribed or required for medical reasons: No Advance Directives: No Advance Directives Information Provided: No service: No Current occupational status: unemployed Meds Allergies Allergy/AdvReac Type Severity Reaction Status Date / Time shellfish derived Allergy Severe SHORTNESS Verified 05/23/21 18:51 OF BREATH, SWELLING shrimp Allergy Severe ANAPHYLAXIS Verified 05/23/21 18:51 Active Medications: Current Medications Albuterol/Ipratropium (Albuterol/Iprat 2.5/0.5mg 3 Ml Ampul.Neb) 3 ml INHALE Q4H [facility] Albuterol/Ipratropium (Albuterol/Iprat 2.5/0.5mg 3 Ml Ampul.Neb) 3 ml INHALE Q3H PRN PRN Reason: sob Methylprednisolone Sodium Succinate (Methylprednisolone Sod Succ 40 Mg/Ml Vial) 40 mg IVPUSH BID [facility] Pharmacy Consult (Consult Rx Perform Med Rec) 1 each MISCELLANE ONCE PRN PRN Reason: Consult order Home Medications Medication Instructions Recorded Confirmed Last Taken Type montelukast 10 mg tablet 10 mg PO DAILY 04/24/22 04/24/22 03/27/22 History (Singulair) Physical Exam Vital Signs and Narrative: Vital Signs: Last Vital Signs Temp 99.4 F 04/24/22 06:00 Pulse 107 H 04/24/22 06:00 Resp 19 04/24/22 06:00 BP 142/79 H 04/24/22 06:00 Pulse Ox 95 04/24/22 06:00 O2 Del Method 04/24/22 06:00 BMI result Body Mass Index 34.9 Appearance: Alert.? Oriented X3.?sob Eyes: Pupils equal, round and reactive to light.? Sclera nonicteric.? ENT: Pharynx normal.? Moist mucous membranes. cvs: rrr, [id number] , mild tachycardic. res: diminshed breath sounds, b/l wheezing abd: no rebound or guarding ,nt, bs present. ext pulses present , no cyanosis . neuro: axo3 , nonfocal. Results Labs CBC and Chem 7: 04/24/22 03:29 04/24/22 03:29 Labs: Laboratory Results - last 24 hr 04/24/22 04/24/22 04/24/22 03:29 03:29 07:15 MCV 79.2 L MCH 28.0 MCHC 35.4 RDW 12.3 Plt Count 323 MPV 9.3 L Absolute Nucleated RBC 0.000 Nucleated RBC % (auto) 0.0 Anion Gap 14 Estim Creat Clear Calc 138.8 Estimated GFR > 60 Random Glucose 146 H Calcium 8.8 Total Bilirubin 0.3 AST 26 ALT 35 Alkaline Phosphatase 87 D Total Protein 7.6 Albumin 4.1 COVID-19 ([facility]) Negative COVID-19 Clin Com See Note Imaging Radiologist's Impressions: Impressions Chest X-Ray 04/24/22 06:47 IMPRESSION: Unremarkable examination. No significant change. Assessment and Plan (1) Asthma with acute exacerbation: Status: Acute Plan 26-year-old male with a history of asthma with frequent exacerbations : 1. Asthma exacerbation( excerebation of mild intermittent asthma): did not respond to outpatient rx,also lost medictaions little response to intial nebs,steriods Started on nebs, steroids COVID test pending, med reconciliation done. 2. obesity: Encouraged weight loss, cutdown calories. dvt prophylax: encouaged ambulation Above management discussed with the patient in detail length he understand and in agreement with the above plan, time spent 70 minute, patient full code. Quality Stroke Does the patient have a stroke diagnosis?: No VTE Prior VTE?: No VTE Risk Level:: Medical - low VTE Device Contraindication: N/A - Device Ordered VTE Drug Contraindication: N/A - Med Ordered
[2022-04-24] MEDS: methylPREDNISolone Sod Succ 40 MG/ML VIAL IVPUSH (09:39)
[2022-04-24] MEDS: Albuterol/Iprat 2.5/0.5MG 3 ML AMPUL.NEB INHALE (11:49)
--- NOTE | 2022-04-24 15:59 | PM.EVENT ---
Event Note Date of Service: 04/24/22 Event Note: Discharge note : Date of discharge end service is 04/24/22 Patient left against medical advice. Please see discharge instruction and H&P for detailed information Discharge diagnosis: Asthma exacerbation.
== END 2022-04-24 16:12 | disposition left against medical advice (07) ==
LOC: HO.ED 06:44 → HO.EDOVER 09:33
PROVIDERS: Admitting Provider Internal Medicine; Emergency Provider Emergency Medicine; Visit Provider Internal Medicine
DX: J45.901 Unspecified asthma with (acute) exacerbation (principal); R06.02 Shortness of breath; Z79.899 Other long term (current) drug therapy; Z20.822 Contact with and (suspected) exposure to COVID-19
CPT/HCPCS: 36415; 71045; 80053; 85027; 87635; 94640; 96365; 96366; 96376; 99218; 99284; J2920; J2930; J3475

== ENCOUNTER 2022-05-14 20:52 | Emergency (ER) | payer MEDICAID, SELFPAY ==
[2022-05-14 21:03] VITALS: BP 146/90; PULSE 106; RESP 20; TEMP 36.8; O2SAT 94; BMI 34.9
[2022-05-14 21:19] VITALS: BP 158/84; PULSE 102; RESP 24; O2SAT 96
[2022-05-14 21:38] VITALS: PULSE 102; RESP 16; O2SAT 94
[2022-05-14] MEDS: Albuterol Sulfate 7.5 MG, Albuterol/Iprat 2.5/0.5MG 3 ML 3 ML INHALE (21:38)
[2022-05-14 22:00] VITALS: BP 140/74; PULSE 102; RESP 14; TEMP 36.7; O2SAT 97
[2022-05-14] MEDS: dexAMETHasone 2 MG TABLET 10 MG PO (22:37)
[2022-05-14] MEDS: Albuterol Sulfate 7.5 MG, Albuterol Sulfate (0.083%) 2.5 MG 10 MG INHALE (22:54)
[2022-05-14 22:57] VITALS: PULSE 103; RESP 14; O2SAT 94
--- NOTE | 2022-05-14 23:57 | ED_ITS ---
HPI - Asthma General Chief Complaint: Asthma Stated Complaint: asthma Time Seen by Provider: 05/14/22 21:25 Source: patient Mode of arrival: ambulatory Limitations: no limitations History of Present Illness HPI Narrative: Patient history of asthma with frequent ED visits comes in for increased shortness breath since yesterday tried his inhaler nebulizing machine without much relief no chest pain no fever no chills dry cough+ Related Data Home Medications Medication Instructions Recorded Confirmed montelukast 10 mg tablet 10 mg PO DAILY 04/24/22 04/24/22 (Singulair) Previous Rx's Medication Instructions Recorded fluticasone 500 mcg-salmeterol 50 1 inh inhalation BID #60 ea 07/02/21 mcg/dose blistr powdr for inhalation (Advair Diskus) nebulizer and compressor #1 ea 09/15/21 albuterol sulfate 90 mcg/actuation 2 puff inhalation Q4-6H PRN 04/18/22 aerosol inhaler shortness of breath or wheezing #8.5 grams nebulizers (Aeroneb Go Nebulizer) #1 ea 04/18/22 albuterol sulfate 90 mcg/actuation 2 puff inhalation Q4-6H PRN 05/14/22 aerosol inhaler (ProAir HFA) Wheezing #8.5 grams prednisone 20 mg tablet 40 mg PO DAILY #10 tabs 05/14/22 Allergies Allergy/AdvReac Type Severity Reaction Status Date / Time shellfish derived Allergy Severe SHORTNESS Verified 05/23/21 18:51 OF BREATH, SWELLING shrimp Allergy Severe ANAPHYLAXIS Verified 05/23/21 18:51 Review of Systems Review of Systems: Yes all other systems are reviewed and are negative PMF[facility] Past Medical History Medical History Asthma Asthma Pneumonia due to 2019 novel coronavirus Family History Family History Mother Asthma Social History Social History Household Members: None Housing: House Do you presently have visiting nurse or other home services: No Alcohol intake: never Patient Tobacco Use Status: Never used Tobacco Use of substances other than those prescribed or required for medical reasons: No Advance Directives: No service: No Current occupational status: unemployed Physical Exam Vital Signs: Vital Signs: Last Vital Signs Temp 98.1 F 05/14/22 22:00 Pulse 103 H 05/14/22 22:57 Resp 14 05/14/22 22:57 BP 140/74 H 05/14/22 22:00 Pulse Ox 97 05/14/22 22:00 O2 Del Method 05/14/22 22:00 BMI result Body Mass Index 34.9 Appearance: Alert. Oriented X3. No acute distress. ENT: Pharynx normal. Oral Mucosa moist Neck: Normal inspection. Neck supple. CVS: Normal heart rate and rhythm. Pulses normal. Respiratory: Moderate respiratory distress. Equal air entry bilateral, bilateral wheezing Abdomen: Soft and nontender. Bowel sounds are present, no mass palpable, no CVA tenderness Skin: Skin warm and dry. Normal skin color. Normal skin turgor. Extremities: No lower extremity edema. No calf tenderness Neuro: Oriented X 3. No motor deficit. MDM - Asthma MDM Narrative Medical decision making narrative: Patient received 2 hour long nebulized treatments feeling much better saturating 96% at room air will discharge patient home Differential Diagnosis Differential diagnosis: Likely Acute exacerbation Discharge Plan Discharge Clinical Impression: Asthma exacerbation Patient Disposition: Home, Self-Care Instructions: Asthma (ED) Additional Instructions: Continue to use your inhaler and nebulizing treatment Prednisone as advised Follow-up with vending attendant for further management Prescriptions: New prednisone 20 mg tablet 40 mg PO DAILY Qty: 10 0RF albuterol sulfate [ProAir HFA] 90 mcg/actuation HFA aerosol inhaler 2 puff inhalation Q4-6H PRN (Reason: Wheezing) Qty: 8.5 0RF No Action fluticasone propion-salmeterol [Advair Diskus] 500-50 mcg/dose blister with device 1 inh inhalation BID Qty: 60 0RF (DME) nebulizer and compressor Device See Rx Instructions .Route Qty: 1 0RF Rx Instructions: As directed albuterol sulfate 90 mcg/actuation HFA aerosol inhaler 2 puff inhalation Q4-6H PRN (Reason: shortness of breath or wheezing) Qty: 8.5 0RF (DME) nebulizers [Aeroneb Go Nebulizer] Misc See Rx Instructions .Route Qty: 1 0RF Rx Instructions: As directed montelukast [Singulair] 10 mg Tablet 10 mg PO DAILY Referrals: John Rios MD [Physician] - 2 weeks Interventions: ED Discharge Assessment Last Done: 05/15/22 00:05 Discharge Date/Time: 05/15/22 00:06
== END 2022-05-15 00:06 | disposition home or self-care (01) ==
PROVIDERS: Emergency Provider Internal Medicine
DX: J45.901 Unspecified asthma with (acute) exacerbation (principal)
CPT/HCPCS: 94640; 99284; 99285; J8540

== ENCOUNTER 2022-06-23 21:13 | Emergency (ER) | payer MEDICAID, SELFPAY ==
[2022-06-23 21:17] VITALS: BP 153/108; PULSE 99; RESP 22; TEMP 36.7; O2SAT 92; BMI 40.2
--- NOTE | 2022-06-24 04:27 | ED_ITS ---
HPI - Asthma General Chief Complaint: Asthma Stated Complaint: Asthma Time Seen by Provider: 06/24/22 04:24 Source: patient Mode of arrival: ambulatory Limitations: no limitations History of Present Illness HPI Narrative: Patient has frequent asthma attacks and ED visits comes in for 2 days of increased shortness of breath with wheezing no fever no chills no phlegm intact similar that in the past no chest pain or palpitation Related Data Home Medications Medication Instructions Recorded Confirmed montelukast 10 mg tablet 10 mg PO DAILY 04/24/22 04/24/22 (Singulair) Previous Rx's Medication Instructions Recorded fluticasone 500 mcg-salmeterol 50 1 inh inhalation BID #60 ea 07/02/21 mcg/dose blistr powdr for inhalation (Advair Diskus) nebulizer and compressor #1 ea 09/15/21 albuterol sulfate 90 mcg/actuation 2 puff inhalation Q4-6H PRN 04/18/22 aerosol inhaler shortness of breath or wheezing #8.5 grams nebulizers (Aeroneb Go Nebulizer) #1 ea 04/18/22 albuterol sulfate 90 mcg/actuation 2 puff inhalation Q4-6H PRN 05/14/22 aerosol inhaler (ProAir HFA) Wheezing #8.5 grams prednisone 20 mg tablet 40 mg PO DAILY #10 tabs 05/14/22 albuterol sulfate 2.5 mg/3 mL 2.5 mg (3 mL) inhalation Q4-6H PRN 06/24/22 (0.083 %) solution for nebulization shortness of breath or wheezing #90 mL albuterol sulfate 90 mcg/actuation 2 puff inhalation Q4-6H PRN 06/24/22 aerosol inhaler (ProAir HFA) shortness of breath or wheezing #8.5 grams prednisone 20 mg tablet 40 mg PO DAILY #10 tabs 06/24/22 Allergies Allergy/AdvReac Type Severity Reaction Status Date / Time shellfish derived Allergy Severe SHORTNESS Verified 05/23/21 18:51 OF BREATH, SWELLING shrimp Allergy Severe ANAPHYLAXIS Verified 05/23/21 18:51 Review of Systems Review of Systems: Yes all other systems are reviewed and are negative PMFSH Past Medical History Medical History Asthma Asthma Pneumonia due to 2019 novel coronavirus Family History Family History Mother Asthma Social History Social History Household Members: None Housing: House Do you presently have visiting nurse or other home services: No Alcohol intake: former Patient Tobacco Use Status: Never used Tobacco Smoked in Last 30 Days: No Use of substances other than those prescribed or required for medical reasons: No Advance Directives: No Advance Directives Information Provided: Yes service: No Current occupational status: unemployed Physical Exam Vital Signs: Vital Signs: Last Vital Signs Temp 98.2 F 06/24/22 06:21 Pulse 89 06/24/22 06:21 Resp 20 06/24/22 06:21 BP 120/76 06/24/22 06:21 Pulse Ox 96 06/24/22 06:21 O2 Del Method 06/24/22 06:21 BMI result Body Mass Index 40.2 Appearance: Alert. Oriented X3. Mild respiratory distress. ENT: Pharynx normal. Oral Mucosa moist Neck: Normal inspection. Neck supple. CVS: Normal heart rate and rhythm. Pulses normal. Respiratory:mild respiratory distress. Equal air entry bilateral, bilateral wheezing decreased air entry bilateral Abdomen: Soft and nontender. Bowel sounds are present, no mass palpable, no CVA tenderness Skin: Skin warm and dry. Normal skin color. Normal skin turgor. Extremities: No lower extremity edema. No calf tenderness Neuro: Oriented X 3. No motor deficit. Medications Administered Discontinued Medications Generic Name Dose Route Start Last Admin Trade Name Freq PRN Reason Stop Dose Admin Albuterol Sulfate 5 mg/ 7.5 mg 06/24/22 04:24 06/24/22 04:31 Albuterol Sulfate 2.5 mg INHALE 06/24/22 04:25 7.5 mg ONCE ONE Administration Albuterol/Ipratropium 1.5 ml 06/24/22 04:15 06/24/22 05:59 Albuterol/Iprat 2.5/0.5mg 3 Ml Ampul.Neb INHALE 06/24/22 04:16 Not Given ONCE ONE Dexamethasone 10 mg 06/24/22 04:35 06/24/22 05:00 Dexamethasone 2 Mg Tablet PO 06/24/22 04:36 10 mg ONCE ONE Administration MDM - Asthma MDM Narrative Medical decision making narrative: Patient has frequent visits with asthma saturating 94% after nebulizing treatment will discharge patient home on prednisone and albuterol inhaler advised to follow with analytical engineer Discharge Plan Discharge Clinical Impression: Asthma with acute exacerbation Patient Disposition: Home, Self-Care Instructions: Asthma (ED) Additional Instructions: Continue your inhaler/nebulizing treatments every 4-6 hours as needed Prednisone as advised follow-up lung specialist Prescriptions: New prednisone 20 mg tablet 40 mg PO DAILY Qty: 10 0RF albuterol sulfate [ProAir HFA] 90 mcg/actuation HFA aerosol inhaler 2 puff inhalation Q4-6H PRN (Reason: shortness of breath or wheezing) Qty: 8.5 3RF albuterol sulfate 2.5 mg /3 mL (0.083 %) solution for nebulization 2.5 mg inhalation Q4-6H PRN (Reason: shortness of breath or wheezing) Qty: 90 0RF No Action prednisone 20 mg tablet 40 mg PO DAILY Qty: 10 0RF albuterol sulfate [ProAir HFA] 90 mcg/actuation HFA aerosol inhaler 2 puff inhalation Q4-6H PRN (Reason: Wheezing) Qty: 8.5 0RF fluticasone propion-salmeterol [Advair Diskus] 500-50 mcg/dose blister with device 1 inh inhalation BID Qty: 60 0RF (DME) nebulizer and compressor Device See Rx Instructions .Route Qty: 1 0RF Rx Instructions: As directed albuterol sulfate 90 mcg/actuation HFA aerosol inhaler 2 puff inhalation Q4-6H PRN (Reason: shortness of breath or wheezing) Qty: 8.5 0RF (DME) nebulizers [Aeroneb Go Nebulizer] Misc See Rx Instructions .Route Qty: 1 0RF Rx Instructions: As directed montelukast [Singulair] 10 mg Tablet 10 mg PO DAILY Referrals: John Rios MD [Physician] - 1 week Interventions: ED Discharge Assessment Last Done: 06/24/22 06:25 Discharge Date/Time: 06/24/22 06:26
[2022-06-24 04:31] VITALS: BP 144/97; PULSE 91; RESP 20; O2SAT 94
[2022-06-24] MEDS: Albuterol Sulfate 5 MG, Albuterol Sulfate (0.083%) 2.5 MG 7.5 MG INHALE (04:31)
[2022-06-24 04:50] VITALS: BP 121/76; PULSE 97; RESP 22; TEMP 36.3; O2SAT 93
[2022-06-24] MEDS: dexAMETHasone 2 MG TABLET 10 MG PO (05:00)
[2022-06-24 06:21] VITALS: BP 120/76; PULSE 89; RESP 20; TEMP 36.8; O2SAT 96
== END 2022-06-24 06:26 | disposition home or self-care (01) ==
PROVIDERS: Emergency Provider Internal Medicine
DX: J45.901 Unspecified asthma with (acute) exacerbation (principal); R06.02 Shortness of breath; Z79.899 Other long term (current) drug therapy
CPT/HCPCS: 99284; J8540

== ENCOUNTER 2022-08-11 02:52 | Emergency (ER) | payer MEDICAID, SELFPAY ==
--- NOTE | ~2022-08-11 | XR_ITS ---
EXAMINATION: XR CHEST CLINICAL INFORMATION: Dyspnea COMPARISON: 04/24/2022 TECHNIQUE: Frontal view of the chest was obtained. FINDINGS: Normal symmetric lung volumes. No parenchymal consolidation. No pleural effusion. No pneumothorax. Cardiomediastinal silhouette and pulmonary vascularity are within normal limits. No acute osseous abnormalities. XR/XR chest 1V IMPRESSION: Clear lungs
[2022-08-11 03:15] VITALS: BP 149/93; PULSE 110; RESP 22; TEMP 36.8; O2SAT 94; BMI 36.6
[2022-08-11 04:03] LABS: Influenza A PCR NEGATIVE (Negative); Influenza B PCR NEGATIVE (Negative); Resp Syncy Virus RNA Qual PCR NEGATIVE (Negative); SARS COV2 PCR INHOUSE NEGATIVE (Negative)
[2022-08-11] MEDS: predniSONE 20 MG TABLET 40 MG PO (04:18)
[2022-08-11] MEDS: Albuterol Sulfate 2.5 MG, Albuterol Sulfate (0.083%) 2.5 MG 5 MG INHALE (04:35)
[2022-08-11] MEDS: Albuterol/Iprat 2.5/0.5MG 3 ML AMPUL.NEB INHALE (04:35)
[2022-08-11 04:40] VITALS: PULSE 92; RESP 20; O2SAT 95
[2022-08-11 05:05] VITALS: BP 147/73; PULSE 81; RESP 20; TEMP 36.7; O2SAT 90
[2022-08-11 06:29] VITALS: BP 144/95; PULSE 98; RESP 22; TEMP 36.6; O2SAT 95
--- NOTE | 2022-08-11 06:49 | ED_ITS ---
HPI - Asthma General Chief Complaint: Asthma Stated Complaint: Asthma Time Seen by Provider: 08/11/22 03:41 Source: patient Mode of arrival: ambulatory Limitations: no limitations History of Present Illness HPI Narrative: 27-year-old male with history of bronchial asthma presented with shortness of breath and difficulty breathing, patient ran out of his home asthma medication. No fever, no chills, coughing with no sputum. Related Data Home Medications Medication Instructions Recorded Confirmed montelukast 10 mg tablet 10 mg PO DAILY 04/24/22 04/24/22 (Singulair) Previous Rx's Medication Instructions Recorded fluticasone 500 mcg-salmeterol 50 1 inh inhalation BID #60 ea 07/02/21 mcg/dose blistr powdr for inhalation (Advair Diskus) nebulizer and compressor #1 ea 09/15/21 albuterol sulfate 90 mcg/actuation 2 puff inhalation Q4-6H PRN 04/18/22 aerosol inhaler shortness of breath or wheezing #8.5 grams nebulizers (Aeroneb Go Nebulizer) #1 ea 04/18/22 albuterol sulfate 90 mcg/actuation 2 puff inhalation Q4-6H PRN 05/14/22 aerosol inhaler (ProAir HFA) Wheezing #8.5 grams prednisone 20 mg tablet 40 mg PO DAILY #10 tabs 05/14/22 albuterol sulfate 2.5 mg/3 mL 2.5 mg (3 mL) inhalation Q4-6H PRN 06/24/22 (0.083 %) solution for nebulization shortness of breath or wheezing #90 mL albuterol sulfate 90 mcg/actuation 2 puff inhalation Q4-6H PRN 06/24/22 aerosol inhaler (ProAir HFA) shortness of breath or wheezing #8.5 grams prednisone 20 mg tablet 40 mg PO DAILY #10 tabs 06/24/22 albuterol sulfate 2.5 mg/3 mL 2.5 mg (3 mL) inhalation Q4-6H PRN 08/11/22 (0.083 %) solution for nebulization shortness of breath or wheezing #90 mL albuterol sulfate 90 mcg/actuation 1 inh inhalation QID PRN shortness 08/11/22 aerosol inhaler of breath or wheezing #8.5 grams prednisone 20 mg tablet 20 mg PO BID #10 tabs 08/11/22 Allergies Allergy/AdvReac Type Severity Reaction Status Date / Time shellfish derived Allergy Severe SHORTNESS Verified 05/23/21 18:51 OF BREATH, SWELLING shrimp Allergy Severe ANAPHYLAXIS Verified 05/23/21 18:51 Review of Systems Review of Systems: All other systems are reviewed and are negative Constitutional: Reports as per HPI and Reports no additional constitutional complaints Eyes: Reports as per HPI and Reports no additional eye complaints Reports system reviewed and no additional complaints, except as documented Cardiovascular: Reports as per HPI and Reports no additional cardiovascular complaints Respiratory: Reports as per HPI and Reports no additional respiratory complaints Gastrointestinal: Reports as per HPI and Reports no additional gastrointestinal complaints Genitourinary: Reports no additional female genitourinary complaints Musculoskeletal: Reports no additional musculoskeletal complaints Skin/Breast: Reports system reviewed and no additional complaints, except as docu Psychiatric: Reports no additional psychiatric complaints Endocrine: Reports no additional endocrine complaints Hematologic/Lymphatic: Reports no additional hematologic/lymphatic complaints Allergic/Immunologic: Reports no additional allergic/immunologic complaints Reports system reviewed and no additional complaints, except as documented and Reports Abnormal speech present [facility] Past Medical History Medical History Asthma Asthma Pneumonia due to 2019 novel coronavirus Family History Family History Mother Asthma Social History Social History Household Members: None Housing: House Do you presently have visiting nurse or other home services: No Alcohol intake: former Patient Tobacco Use Status: Never used Tobacco Advance Directives: No Advance Directives Information Provided: Yes service: No Current occupational status: unemployed Physical Exam Vital Signs: Vital Signs: Last Vital Signs Temp 98 F 08/11/22 06:29 Pulse 98 08/11/22 06:29 Resp 22 H 08/11/22 06:29 BP 144/95 H 08/11/22 06:29 Pulse Ox 95 08/11/22 06:29 O2 Del Method 08/11/22 06:29 BMI result Body Mass Index 36.6 Vital signs have been reviewed as appeared to be correct. Blood pressure normal. Heart rate normal. Respiration rate normal. Temperature normal. Oxygen saturation normal. Appearance: Alert. Oriented X3. No acute distress. Head: Normal external exam. Normocephalic. Atraumatic. No Lindsey signs noted. No raccoon eyes noted Eyes: PERRLA. EOMI. Conjunctiva and sclera normal. Eyelids normal. ENT: TM's Normal. Pharynx normal. Uvula midline. Moist mucous membranes. No trismus noted. No drooling noted. No muffled voice noted. Neck: Normal inspection. Neck supple. FROM. No adenopathy. Thyroid Normal. No meningeal signs. No neck mass noted. CVS: Normal heart rate and rhythm. Heart sound normal. No murmurs noted. Pulses normal throughout. Respiratory: No respiratory distress. Painless inspiration. Breath sounds normal. Diffuse mild expiratory wheezing with prolonged expiration, Chest nontender. No accessory muscle usage noted or decreased air movement noted. Abdomen: Soft and nontender. Bowel sounds normal in all 4 quadrants. No distention noted. No organomegaly noted. No visible injury noted. Back: No CVA tenderness. Full range of motion noted. Skin: Skin warm and dry. Normal skin color. Normal skin turgor. No rashes/lesions/lacerations noted. Extremities: No lower extremity edema. Extremities exhibit normal range of mo tion. Extremities nontender. Neuro: Oriented X 3. Cranial nerve exam: II-XII are grossly intact No motor deficit. No sensory deficit. Reflexes normal. Course Course Course Narrative: Acute asthma exacerbation patient ran out of his home asthma medication will prescribe albuterol/prednisone. Patient received bronchodilator/1 dose of prednisone p.o. patient now feels much better and he would like to go home. Medications Administered Discontinued Medications Generic Name Dose Route Start Last Admin Trade Name Darius PRN Reason Stop Dose Admin Albuterol Sulfate 2.5 mg/ 5 mg 08/11/22 04:05 08/11/22 04:35 Albuterol Sulfate 2.5 mg INHALE 08/11/22 04:06 5 mg ONCE ONE Administration Albuterol/Ipratropium 3 ml 08/11/22 04:05 08/11/22 04:35 Albuterol/Iprat 2.5/0.5mg 3 Ml Ampul.Neb INHALE 08/11/22 04:06 3 ml ONCE ONE Administration Prednisone 40 mg 08/11/22 04:05 08/11/22 04:18 Prednisone 20 Mg Tablet PO 08/11/22 04:06 40 mg ONCE ONE Administration Medical Decision Making Differential Diagnosis Differential Diagnoses: The differential diagnosis associated with the presentation includes (Influenza/COVID-19/RSV/pneumonia/asthma exacerbation.) Lab Data MDM Lab Attestation statement: I reviewed the patient's lab results. Labs: Lab Results 08/11/22 Range/Units 03:20 Influenza Type A (PCR) NEGATIVE (Negative) Influenza Type B (PCR) NEGATIVE (Negative) RSV RNA Qual (PCR) NEGATIVE (Negative) SARS-CoV-2 RNA (RT-PCR) NEGATIVE (Negative) Independent Interpretation I performed an independent interpretation of an: Plain X-Ray (Chest: No acute thoracic pathology.) Radiology Impression Discussion of test interpretation with radiology: I have reviewed the radiologist's reading. Discharge Plan Discharge Clinical Impression: Chronic obstructive asthma with exacerbation Patient Disposition: Home, Self-Care Instructions: Asthma (ED) Prescriptions: New albuterol sulfate 2.5 mg /3 mL (0.083 %) solution for nebulization 2.5 mg inhalation Q4-6H PRN (Reason: shortness of breath or wheezing) Qty: 90 0RF albuterol sulfate 90 mcg/actuation HFA aerosol inhaler 1 inh inhalation QID PRN (Reason: shortness of breath or wheezing) Qty: 8.5 0RF prednisone 20 mg tablet 20 mg PO BID Qty: 10 0RF No Action prednisone 20 mg tablet 40 mg PO DAILY Qty: 10 0RF albuterol sulfate [ProAir HFA] 90 mcg/actuation HFA aerosol inhaler 2 puff inhalation Q4-6H PRN (Reason: Wheezing) Qty: 8.5 0RF prednisone 20 mg tablet 40 mg PO DAILY Qty: 10 0RF albuterol sulfate [ProAir HFA] 90 mcg/actuation HFA aerosol inhaler 2 puff inhalation Q4-6H PRN (Reason: shortness of breath or wheezing) Qty: 8.5 3RF albuterol sulfate 2.5 mg /3 mL (0.083 %) solution for nebulization 2.5 mg inhalation Q4-6H PRN (Reason: shortness of breath or wheezing) Qty: 90 0RF fluticasone propion-salmeterol [Advair Diskus] 500-50 mcg/dose blister with device 1 inh inhalation BID Qty: 60 0RF (DME) nebulizer and compressor Device See Rx Instructions .Route Qty: 1 0RF Rx Instructions: As directed albuterol sulfate 90 mcg/actuation HFA aerosol inhaler 2 puff inhalation Q4-6H PRN (Reason: shortness of breath or wheezing) Qty: 8.5 0RF (DME) nebulizers [Aeroneb Go Nebulizer] Misc See Rx Instructions .Route Qty: 1 0RF Rx Instructions: As directed montelukast [Singulair] 10 mg Tablet 10 mg PO DAILY
== END 2022-08-11 07:02 | disposition home or self-care (01) ==
PROVIDERS: Emergency Provider Emergency Medicine
DX: J44.1 Chronic obstructive pulmonary disease with (acute) exacerbation (principal); Z20.828 Contact with and (suspected) exposure to other viral communicable diseases; Z79.899 Other long term (current) drug therapy
CPT/HCPCS: 0241U; 71045; 94640; 99284

== ENCOUNTER 2022-08-12 19:44 | Emergency (ER) | payer MEDICAID, SELFPAY ==
--- NOTE | 2022-08-12 20:29 | ED.SOB ---
HPI - SOB/Dyspnea General Chief Complaint: Asthma <Shonda Paul CNP - Last Filed: 08/12/22 20:37> Stated Complaint: difficulty breathing, asthma <Shonda Paul CNP - Last Filed: 08/12/22 20:37> Time Seen by Provider: 08/12/22 21:01 <Shonda Paul CNP - Last Filed: 08/12/22 20:37> Source: patient <Briseida Manzano MD - Last Filed: 08/12/22 23:20> Mode of arrival: ambulatory <Briseida Manzano MD - Last Filed: 08/12/22 23:20> Limitations: no limitations <Briseida Manzano MD - Last Filed: 08/12/22 23:20> History of Present Illness HPI Narrative: Patient comes to the emergency room complaining of an asthma exacerbation. Patient was seen here yesterday for the same reason. Patient admits that he did not car pick up driver his albuterol at home or his steroids. <Briseida Manzano MD - Last Filed: 08/12/22 23:20> Related Data Home Medications: Home Medications Medication Instructions Recorded Confirmed montelukast 10 mg tablet 10 mg PO DAILY 04/24/22 04/24/22 (Singulair) Previous Rx's Medication Instructions Recorded fluticasone 500 mcg-salmeterol 50 1 inh inhalation BID #60 ea 07/02/21 mcg/dose blistr powdr for inhalation (Advair Diskus) nebulizer and compressor #1 ea 09/15/21 albuterol sulfate 90 mcg/actuation 2 puff inhalation Q4-6H PRN 04/18/22 aerosol inhaler shortness of breath or wheezing #8.5 grams nebulizers (Aeroneb Go Nebulizer) #1 ea 04/18/22 albuterol sulfate 90 mcg/actuation 2 puff inhalation Q4-6H PRN 05/14/22 aerosol inhaler (ProAir HFA) Wheezing #8.5 grams prednisone 20 mg tablet 40 mg PO DAILY #10 tabs 05/14/22 albuterol sulfate 2.5 mg/3 mL 2.5 mg (3 mL) inhalation Q4-6H PRN 06/24/22 (0.083 %) solution for nebulization shortness of breath or wheezing #90 mL albuterol sulfate 90 mcg/actuation 2 puff inhalation Q4-6H PRN 06/24/22 aerosol inhaler (ProAir HFA) shortness of breath or wheezing #8.5 grams prednisone 20 mg tablet 40 mg PO DAILY #10 tabs 06/24/22 albuterol sulfate 2.5 mg/3 mL 2.5 mg (3 mL) inhalation Q4-6H PRN 08/11/22 (0.083 %) solution for nebulization shortness of breath or wheezing #90 mL albuterol sulfate 90 mcg/actuation 1 inh inhalation QID PRN shortness 08/11/22 aerosol inhaler of breath or wheezing #8.5 grams prednisone 20 mg tablet 20 mg PO BID #10 tabs 08/11/22 <Shonda Paul CNP - Last Filed: 08/12/22 20:37> Allergies/Adverse Reactions: Allergies Allergy/AdvReac Type Severity Reaction Status Date / Time shellfish derived Allergy Severe SHORTNESS Verified 08/12/22 20:34 OF BREATH, SWELLING shrimp Allergy Severe ANAPHYLAXIS Verified 08/12/22 20:34 <Shonda Paul CNP - Last Filed: 08/12/22 20:37> Review of Systems Review of Systems: Constitutional : No Weight loss, No Fever, No Chills, No Night Sweats, No Fatigue, No Malaise ENT/Mouth : No Hearing loss, No Ear Pain, No Nasal Congestion, No Sinus Pain, No Hoarseness, No sore throat, No Rhinorrhea, No Swallowing Difficulty Eyes: No Eye Pain, No Swelling, No Redness, No Foreign Body, No Discharge, No Vision Changes Cardiovascular : No Chest Pain, No SOB, No Dyspnea on Exertion, No Orthopnea, No Edema, No Palpitations Respiratory : Complaining of an asthma exacerbation Gastrointestinal : No Nausea, No Vomiting, No Diarrhea, No Constipation, No abdominal Pain, No Hematochezia, No Melena Genitourinary : no irregular bleeding, No Dysuria, No Urinary Frequency, No Hematuria, No Urinary Incontinence, No Urgency, No Flank Pain, No Urinary Flow Changes, No Hesitancy Musculoskeletal : No joint pain, No Myalgias, No Joint Swelling Skin : No Skin Lesions, No rash Neuro : No Weakness, No Numbness, No Paresthesias, No Loss of Consciousness, No Dizziness, No Headache Psych : No Anxiety/Panic, No Depression, No SI/HI/AH/VH, No Social Issues, Heme/Lymph: No Bruising, No Bleeding,No Lymphadenopathy Endocrine : No Polyuria, No Polydipsia, No Temperature Intolerance <Briseida Manzano MD - Last Filed: 08/12/22 23:20> [facility] Past Medical History Medical History: Medical History Asthma Asthma Pneumonia due to 2019 novel coronavirus <Shonda WoodOLIVIA abebe - Last Filed: 08/12/22 20:37> Family History Family History: Family History Mother Asthma <Shonda Grover OLIVIA Paul - Last Filed: 08/12/22 20:37> Social History Social History: Social History Household Members: None Housing: House Do you presently have visiting nurse or other home services: No Alcohol intake: former Patient Tobacco Use Status: Never used Tobacco Advance Directives: No Advance Directives Information Provided: No service: No Current occupational status: unemployed <Shonda PaulOLIVIA - Last Filed: 08/12/22 20:37> Physical Exam Vital Signs: Vital Signs: Last Vital Signs Temp 97.6 F 08/12/22 20:33 Pulse 114 H 08/12/22 21:53 Resp 20 08/12/22 21:53 BP 142/93 H 08/12/22 20:33 Pulse Ox 96 08/12/22 21:53 O2 Del Method 08/12/22 21:53 O2 Flow Rate 2 08/12/22 21:53 BMI result Body Mass Index 36.6 <Shonda PaulOLIVIA - Last Filed: 08/12/22 20:37> Vital Signs: Last Vital Signs Temp 97.6 F 08/12/22 20:33 Pulse 114 H 08/12/22 21:53 Resp 20 08/12/22 21:53 BP 142/93 H 08/12/22 20:33 Pulse Ox 96 08/12/22 21:53 O2 Del Method 08/12/22 21:53 O2 Flow Rate 2 08/12/22 21:53 BMI result Body Mass Index 36.6 <Briseida Manzano MD - Last Filed: 08/12/22 23:20> Const: Other: Appearance: Alert. Oriented X3. No acute distress. Eyes: Pupils equal, round and reactive to light. ENT: Pharynx normal. Neck: Normal inspection. Neck supple. No lymph nodes noted. No crepitus CVS: Normal heart rate and rhythm. Pulses normal. Normal S1 and S2 Respiratory: Speaking in full sentences, oxygen saturation 97% on room air, bilateral wheezing with moderate air movement Abdomen: Soft and nontender. No rigidity. No distention. Skin: Skin warm and dry. Normal skin color. Normal skin turgor. Extremities: No lower extremity edema. No Lacerations. No Rash Neuro: Oriented X 3. No motor deficit. No sensory deficit. Moving all extremities. No slurred speech. CN 2 through 12 grossly intact Psych: calm, cooperative, normal affect <Briseida Manzano MD - Last Filed: 08/12/22 23:20> Course Course Course Narrative: This is an RME: Additional HPI, ROS, PE not included below will be deferred to primary provider. Patient is a 27-year-old male who presents to the emergency department for evaluation of shortness of breath difficulty breathing, feels like he is having an asthma exacerbation. Yesterday was seen in the emergency department for the same, he received nebulizer treatments and prednisone, he was discharged home with albuterol inhaler and nebulizer at that time he was feeling much better. Approximately 2 hours ago he began having significant increase in symptoms again. Attempted nebulizer without improvement, states that he just used his albuterol inhaler about 10 minutes ago with no significant improvement. Has not yet taken prednisone today. PE: Increased work of breathing, audible wheezing, lung sounds with expiratory wheezing throughout, diminished at the bases. Tachycardic heart rate 110-120's, O2 saturation 93% on room air. Plan: albuterol nebulizer, prednisone , patient moved to [facility] <Shonda Paul CNP - Last Filed: 08/12/22 20:37> This is an RME: Additional HPI, ROS, PE not included below will be deferred to primary provider. Patient is a 27-year-old male who presents to the emergency department for evaluation of shortness of breath difficulty breathing, feels like he is having an asthma exacerbation. Yesterday was seen in the emergency department for the same, he received nebulizer treatments and prednisone, he was discharged home with albuterol inhaler and nebulizer at that time he was feeling much better. Approximately 2 hours ago he began having significant increase in symptoms again. Attempted nebulizer without improvement, states that he just used his albuterol inhaler about 10 minutes ago with no significant improvement. Has not yet taken prednisone today. PE: Increased work of breathing, audible wheezing, lung sounds with expiratory wheezing throughout, diminished at the bases. Tachycardic heart rate 110-120's, O2 saturation 93% on room air. Plan: albuterol nebulizer, prednisone , patient moved to [facility] After the above-mentioned treatment, patient breathing fairly comfortable, very minimal wheezing. Patient will car pick up driver his medication today. At this time, patient states that he does not need more prescriptions, the 1 that is was sent to his pharmacy yesterday needs to be picked up today <Briseida Manzano MD - Last Filed: 08/12/22 23:20> Medications Administered Discontinued Medications Generic Name Dose Route Start Last Admin Trade Name Freq PRN Reason Stop Dose Admin Albuterol Sulfate 5 mg/ 7.5 mg 08/12/22 20:36 08/12/22 21:03 Albuterol Sulfate 2.5 mg INHALE 08/12/22 20:37 7.5 mg ONCE ONE Administration Albuterol/Ipratropium 3 ml 08/12/22 20:36 08/12/22 21:04 Albuterol/Iprat 2.5/0.5mg 3 Ml Ampul.Neb INHALE 08/12/22 20:37 3 ml ONCE ONE Administration Magnesium Sulfate 2 gm in 50 mls @ 25 mls/hr 08/12/22 21:12 08/12/22 21:32 Magnesium Sulfate/H2o IV 08/12/22 23:11 25 mls/hr ONCE ONE Administration Methylprednisolone Sodium Succinate 125 mg 08/12/22 21:12 08/12/22 21:32 Methylprednisolone Sod Succ 125 Mg/2 Ml Vial IVPUSH 08/12/22 21:13 125 mg ONCE ONE Administration Prednisone 60 mg 08/12/22 20:36 08/12/22 20:44 Prednisone 20 Mg Tablet PO 08/12/22 20:37 60 mg ONCE ONE Administration <Shonda Paul CNP - Last Filed: 08/12/22 20:37> Medications Administered Discontinued Medications Generic Name Dose Route Start Last Admin Trade Name Darius PRN Reason Stop Dose Admin Albuterol Sulfate 5 mg/ 7.5 mg 08/12/22 20:36 08/12/22 21:03 Albuterol Sulfate 2.5 mg INHALE 08/12/22 20:37 7.5 mg ONCE ONE Administration Albuterol/Ipratropium 3 ml 08/12/22 20:36 08/12/22 21:04 Albuterol/Iprat 2.5/0.5mg 3 Ml Ampul.Neb INHALE 08/12/22 20:37 3 ml ONCE ONE Administration Magnesium Sulfate 2 gm in 50 mls @ 25 mls/hr 08/12/22 21:12 08/12/22 21:32 Magnesium Sulfate/H2o IV 08/12/22 23:11 25 mls/hr ONCE ONE Administration Methylprednisolone Sodium Succinate 125 mg 08/12/22 21:12 08/12/22 21:32 Methylprednisolone Sod Succ 125 Mg/2 Ml Vial IVPUSH 08/12/22 21:13 125 mg ONCE ONE Administration Prednisone 60 mg 08/12/22 20:36 08/12/22 20:44 Prednisone 20 Mg Tablet PO 08/12/22 20:37 60 mg ONCE ONE Administration <Briseida Manzano MD - Last Filed: 08/12/22 23:20> Critical Care Time Critical Care Time Critical Care Time: Yes <Briseida Manzano MD - Last Filed: 08/12/22 23:20> Total Critical Care Time: 40 <Briseida Manzano MD - Last Filed: 08/12/22 23:20> Attestation: I have personally provided critical care time. Time includes review of lab data, radiology results, discussion with consultants, and monitoring for potential decompensation. Intervention performed as documented. <Briseida Manzano MD - Last Filed: 08/12/22 23:20> Discharge Plan Discharge Clinical Impression: Asthma <Shonda Paul CNP - Last Filed: 08/12/22 20:37> Patient Disposition: Home, Self-Care <Shonda Paul CNP - Last Filed: 08/12/22 20:37> Instructions: Asthma (ED) <Shonda Paul CNP - Last Filed: 08/12/22 20:37> Additional Instructions: Please follow-up with your primary care physician tomorrow. If you have any worsening or new symptoms, please return to the emergency room or call 911 <Shonda Paul CNP - Last Filed: 08/12/22 20:37> Prescriptions: No Action prednisone 20 mg tablet 40 mg PO DAILY Qty: 10 0RF albuterol sulfate [ProAir HFA] 90 mcg/actuation HFA aerosol inhaler 2 puff inhalation Q4-6H PRN (Reason: Wheezing) Qty: 8.5 0RF prednisone 20 mg tablet 40 mg PO DAILY Qty: 10 0RF albuterol sulfate [ProAir HFA] 90 mcg/actuation HFA aerosol inhaler 2 puff inhalation Q4-6H PRN (Reason: shortness of breath or wheezing) Qty: 8.5 3RF albuterol sulfate 2.5 mg /3 mL (0.083 %) solution for nebulization 2.5 mg inhalation Q4-6H PRN (Reason: shortness of breath or wheezing) Qty: 90 0RF fluticasone propion-salmeterol [Advair Diskus] 500-50 mcg/dose blister with device 1 inh inhalation BID Qty: 60 0RF (DME) nebulizer and compressor Device See Rx Instructions .Route Qty: 1 0RF Rx Instructions: As directed albuterol sulfate 90 mcg/actuation HFA aerosol inhaler 2 puff inhalation Q4-6H PRN (Reason: shortness of breath or wheezing) Qty: 8.5 0RF (DME) nebulizers [Aeroneb Go Nebulizer] [facility] See Rx Instructions .Route Qty: 1 0RF Rx Instructions: As directed montelukast [Singulair] 10 mg Tablet 10 mg PO DAILY albuterol sulfate 2.5 mg /3 mL (0.083 %) solution for nebulization 2.5 mg inhalation Q4-6H PRN (Reason: shortness of breath or wheezing) Qty: 90 0RF albuterol sulfate 90 mcg/actuation HFA aerosol inhaler 1 inh inhalation QID PRN (Reason: shortness of breath or wheezing) Qty: 8.5 0RF prednisone 20 mg tablet 20 mg PO BID Qty: 10 0RF <Shonda Paul, CONFLICTS ANALYST - Last Filed: 08/12/22 20:37>
[2022-08-12 20:33] VITALS: BP 142/93; PULSE 107; RESP 24; TEMP 36.4; O2SAT 95; BMI 36.6
[2022-08-12] MEDS: predniSONE 20 MG TABLET 60 MG PO (20:44)
[2022-08-12] MEDS: Albuterol Sulfate 5 MG, Albuterol Sulfate (0.083%) 2.5 MG 7.5 MG INHALE (21:03)
[2022-08-12] MEDS: Albuterol/Iprat 2.5/0.5MG 3 ML AMPUL.NEB INHALE (21:04)
--- NOTE | 2022-08-12 21:18 | ED_ITS ---
HPI - Asthma General Chief Complaint: Asthma Stated Complaint: difficulty breathing, asthma Time Seen by Provider: 08/12/22 21:01 Source: patient Mode of arrival: ambulatory Limitations: no limitations History of Present Illness HPI Narrative: Patient comes to the emergency room complaining of an asthma exacerbation. Patient states that this time he was at home and out of no where he had an asthma exacerbation. Patient states that usually he has gradual shortness of breath and he is able to deal with it at home. Today, it was very sudden. Patient was seen here yesterday for the same complaint. Related Data Home Medications Medication Instructions Recorded Confirmed montelukast 10 mg tablet 10 mg PO DAILY 04/24/22 04/24/22 (Singulair) Previous Rx's Medication Instructions Recorded fluticasone 500 mcg-salmeterol 50 1 inh inhalation BID #60 ea 07/02/21 mcg/dose blistr powdr for inhalation (Advair Diskus) nebulizer and compressor #1 ea 09/15/21 albuterol sulfate 90 mcg/actuation 2 puff inhalation Q4-6H PRN 04/18/22 aerosol inhaler shortness of breath or wheezing #8.5 grams nebulizers (Aeroneb Go Nebulizer) #1 ea 04/18/22 albuterol sulfate 90 mcg/actuation 2 puff inhalation Q4-6H PRN 05/14/22 aerosol inhaler (ProAir HFA) Wheezing #8.5 grams prednisone 20 mg tablet 40 mg PO DAILY #10 tabs 05/14/22 albuterol sulfate 2.5 mg/3 mL 2.5 mg (3 mL) inhalation Q4-6H PRN 06/24/22 (0.083 %) solution for nebulization shortness of breath or wheezing #90 mL albuterol sulfate 90 mcg/actuation 2 puff inhalation Q4-6H PRN 06/24/22 aerosol inhaler (ProAir HFA) shortness of breath or wheezing #8.5 grams prednisone 20 mg tablet 40 mg PO DAILY #10 tabs 06/24/22 albuterol sulfate 2.5 mg/3 mL 2.5 mg (3 mL) inhalation Q4-6H PRN 08/11/22 (0.083 %) solution for nebulization shortness of breath or wheezing #90 mL albuterol sulfate 90 mcg/actuation 1 inh inhalation QID PRN shortness 08/11/22 aerosol inhaler of breath or wheezing #8.5 grams prednisone 20 mg tablet 20 mg PO BID #10 tabs 08/11/22 Allergies Allergy/AdvReac Type Severity Reaction Status Date / Time shellfish derived Allergy Severe SHORTNESS Verified 08/12/22 20:34 OF BREATH, SWELLING shrimp Allergy Severe ANAPHYLAXIS Verified 08/12/22 20:34 Review of Systems Review of Systems: Constitutional : No Weight loss, No Fever, No Chills, No Night Sweats, No Fatigue, No Malaise ENT/Mouth : No Hearing loss, No Ear Pain, No Nasal Congestion, No Sinus Pain, No Hoarseness, No sore throat, No Rhinorrhea, No Swallowing Difficulty Eyes: No Eye Pain, No Swelling, No Redness, No Foreign Body, No Discharge, No Vision Changes Cardiovascular : No Chest Pain, No SOB, No Dyspnea on Exertion, No Orthopnea, No Edema, No Palpitations Respiratory : Complaining of cough, wheezing, shortness of breath Gastrointestinal : No Nausea, No Vomiting, No Diarrhea, No Constipation, No abdominal Pain, No Hematochezia, No Melena Genitourinary : no irregular bleeding, No Dysuria, No Urinary Frequency, No Hematuria, No Urinary Incontinence, No Urgency, No Flank Pain, No Urinary Flow Changes, No Hesitancy Musculoskeletal : No joint pain, No Myalgias, No Joint Swelling Skin : No Skin Lesions, No rash Neuro : No Weakness, No Numbness, No Paresthesias, No Loss of Consciousness, No Dizziness, No Headache Psych : No Anxiety/Panic, No Depression, No SI/HI/AH/VH, No Social Issues, Heme/Lymph: No Bruising, No Bleeding,No Lymphadenopathy Endocrine : No Polyuria, No Polydipsia, No Temperature Intolerance [facility] Past Medical History Medical History Asthma Asthma Pneumonia due to 2019 novel coronavirus Family History Family History Mother Asthma Social History Social History Household Members: None Housing: House Do you presently have visiting nurse or other home services: No Alcohol intake: former Patient Tobacco Use Status: Never used Tobacco Smoked in Last 30 Days: No Use of substances other than those prescribed or required for medical reasons: No Advance Directives: No Advance Directives Information Provided: No service: No Current occupational status: unemployed Physical Exam Vital Signs: Vital Signs: Last Vital Signs Temp 97.6 F 08/12/22 20:33 Pulse 110 H 08/12/22 23:30 Resp 22 H 08/12/22 23:30 BP 138/89 08/12/22 23:30 Pulse Ox 94 08/12/22 23:30 O2 Del Method 08/12/22 23:30 O2 Flow Rate 2 08/12/22 21:53 BMI result Body Mass Index 36.6 Const: Other: Appearance: Alert. Oriented X3. No acute distress. Eyes: Pupils equal, round and reactive to light. ENT: Pharynx normal. Neck: Normal inspection. Neck supple. No lymph nodes noted. No crepitus CVS: Normal heart rate and rhythm. Pulses normal. Normal S1 and S2 Respiratory: Bilateral wheezing, moderate air movement. Speaking in full sentences, oxygen saturation 95% on room air Abdomen: Soft and nontender. No rigidity. No distention. Skin: Skin warm and dry. Normal skin color. Normal skin turgor. Extremities: No lower extremity edema. No Lacerations. No Rash Neuro: Oriented X 3. No motor deficit. No sensory deficit. Moving all extremities. No slurred speech. CN 2 through 12 grossly intact Psych: calm, cooperative, normal affect Course Course Course Narrative: Patient receiving DuoNeb, albuterol, magnesium, Solu-Medrol. Patient states that if possible he would like to be discharged home and would like to avoid admission. Medications Administered Discontinued Medications Generic Name Dose Route Start Last Admin Trade Name Jrq PRN Reason Stop Dose Admin Albuterol Sulfate 5 mg/ 7.5 mg 08/12/22 20:36 08/12/22 21:03 Albuterol Sulfate 2.5 mg INHALE 08/12/22 20:37 7.5 mg ONCE ONE Administration Albuterol/Ipratropium 3 ml 08/12/22 20:36 08/12/22 21:04 Albuterol/Iprat 2.5/0.5mg 3 Ml Ampul.Neb INHALE 08/12/22 20:37 3 ml ONCE ONE Administration Magnesium Sulfate 2 gm in 50 mls @ 25 mls/hr 08/12/22 21:12 08/12/22 23:28 Magnesium Sulfate/H2o IV 08/12/22 23:11 Infused ONCE ONE Infusion Methylprednisolone Sodium Succinate 125 mg 08/12/22 21:12 08/12/22 21:32 Methylprednisolone Sod Succ 125 Mg/2 Ml Vial IVPUSH 08/12/22 21:13 125 mg ONCE ONE Administration Prednisone 60 mg 08/12/22 20:36 08/12/22 20:44 Prednisone 20 Mg Tablet PO 08/12/22 20:37 60 mg ONCE ONE Administration Critical Care Time Critical Care Time Total Critical Care Time: 50 Attestation: I have personally provided critical care time. Time includes review of lab data, radiology results, discussion with consultants, and monitoring for potential decompensation. Intervention performed as documented. Discharge Plan Discharge Clinical Impression: Asthma Patient Disposition: Home, Self-Care Instructions: Asthma (ED) Additional Instructions: Please follow-up with your primary care physician tomorrow. If you have any worsening or new symptoms, please return to the emergency room or call 911 Prescriptions: No Action prednisone 20 mg tablet 40 mg PO DAILY Qty: 10 0RF albuterol sulfate [ProAir HFA] 90 mcg/actuation HFA aerosol inhaler 2 puff inhalation Q4-6H PRN (Reason: Wheezing) Qty: 8.5 0RF prednisone 20 mg tablet 40 mg PO DAILY Qty: 10 0RF albuterol sulfate [ProAir HFA] 90 mcg/actuation HFA aerosol inhaler 2 puff inhalation Q4-6H PRN (Reason: shortness of breath or wheezing) Qty: 8.5 3RF albuterol sulfate 2.5 mg /3 mL (0.083 %) solution for nebulization 2.5 mg inhalation Q4-6H PRN (Reason: shortness of breath or wheezing) Qty: 90 0RF fluticasone propion-salmeterol [Advair Diskus] 500-50 mcg/dose blister with device 1 inh inhalation BID Qty: 60 0RF (DME) nebulizer and compressor Device See Rx Instructions .Route Qty: 1 0RF Rx Instructions: As directed albuterol sulfate 90 mcg/actuation HFA aerosol inhaler 2 puff inhalation Q4-6H PRN (Reason: shortness of breath or wheezing) Qty: 8.5 0RF (DME) nebulizers [Aeroneb Go Nebulizer] Misc See Rx Instructions .Route Qty: 1 0RF Rx Instructions: As directed montelukast [Singulair] 10 mg Tablet 10 mg PO DAILY albuterol sulfate 2.5 mg /3 mL (0.083 %) solution for nebulization 2.5 mg inhalation Q4-6H PRN (Reason: shortness of breath or wheezing) Qty: 90 0RF albuterol sulfate 90 mcg/actuation HFA aerosol inhaler 1 inh inhalation QID PRN (Reason: shortness of breath or wheezing) Qty: 8.5 0RF prednisone 20 mg tablet 20 mg PO BID Qty: 10 0RF Interventions: ED Discharge Assessment Last Done: 08/12/22 23:34 Discharge Date/Time: 08/12/22 23:34
[2022-08-12] MEDS: methylPREDNISolone Sod Succ 125 MG/2 ML VIAL IVPUSH (21:32)
[2022-08-12] MEDS: Magnesium Sulfate/H2O 2 GM/50 ML PIGGYBACK IV (21:32)
[2022-08-12 21:50] VITALS: PULSE 112; RESP 20; O2SAT 89
[2022-08-12 21:53] VITALS: PULSE 114; RESP 20; O2SAT 96
--- NOTE | 2022-08-12 21:54 | PC.NURSE ---
@ 2100 pt moved from results pending bed to emc 5
--- NOTE | 2022-08-12 21:54 | PC.NURSE ---
pt SpO2 @ 89% room air. pt reports no SOB. pt sat up in bed, with no improvement. rn placed pt on 2LPM NC. SpO2 96% at this time
[2022-08-12 23:30] VITALS: BP 138/89; PULSE 110; RESP 22; O2SAT 94
--- NOTE | 2022-08-12 23:33 | PC.NURSE ---
pt ambulatory at discharge. VSS. skin pwd. pt friend t bedside. discharge packet provided to pt. pt verbalized understanding of discharge plan
== END 2022-08-12 23:34 | disposition home or self-care (01) ==
PROVIDERS: Emergency Provider Emergency Medicine
DX: J45.909 Unspecified asthma, uncomplicated (principal); R06.02 Shortness of breath; Z79.899 Other long term (current) drug therapy
CPT/HCPCS: 96365; 96375; 99284; J2930; J3475

== ENCOUNTER 2022-08-15 08:35 | Emergency (ER) | payer MEDICAID, SELFPAY ==
[2022-08-15] VITALS (9 sets, daily range): BP systolic 131–141; BP diastolic 92–97; PULSE 89–118; RESP 17–26; TEMP 36.6; O2SAT 88–95; BMI 36.6
--- NOTE | ~2022-08-15 | XR_ITS ---
EXAMINATION: XR CHEST CLINICAL INFORMATION: Shortness of breath COMPARISON: August 11, 2022 TECHNIQUE: AP portable chest view of the chest was obtained. FINDINGS: No significant abnormality is noted involving the heart, lungs, mediastinum, bony thorax or soft tissues. XR/XR chest 1V IMPRESSION: No acute disease.
--- NOTE | 2022-08-15 09:00 | ED.SOB ---
HPI - SOB/Dyspnea General Chief Complaint: Dyspnea Stated Complaint: diff breathing Time Seen by Provider: 08/15/22 08:45 Source: patient Mode of arrival: ambulatory History of Present Illness HPI Narrative: 27-year-old male with known asthma and was seen here on 08/12 for same. 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 Related Data Home Medications Medication Instructions Recorded Confirmed montelukast 10 mg tablet 10 mg PO DAILY 04/24/22 04/24/22 (Singulair) Previous Rx's Medication Instructions Recorded fluticasone 500 mcg-salmeterol 50 1 inh inhalation BID #60 ea 07/02/21 mcg/dose blistr powdr for inhalation (Advair Diskus) nebulizer and compressor #1 ea 09/15/21 albuterol sulfate 90 mcg/actuation 2 puff inhalation Q4-6H PRN 04/18/22 aerosol inhaler shortness of breath or wheezing #8.5 grams nebulizers (Aeroneb Go Nebulizer) #1 ea 04/18/22 albuterol sulfate 90 mcg/actuation 2 puff inhalation Q4-6H PRN 05/14/22 aerosol inhaler (ProAir HFA) Wheezing #8.5 grams prednisone 20 mg tablet 40 mg PO DAILY #10 tabs 05/14/22 albuterol sulfate 2.5 mg/3 mL 2.5 mg (3 mL) inhalation Q4-6H PRN 06/24/22 (0.083 %) solution for nebulization shortness of breath or wheezing #90 mL albuterol sulfate 90 mcg/actuation 2 puff inhalation Q4-6H PRN 06/24/22 aerosol inhaler (ProAir HFA) shortness of breath or wheezing #8.5 grams prednisone 20 mg tablet 40 mg PO DAILY #10 tabs 06/24/22 albuterol sulfate 2.5 mg/3 mL 2.5 mg (3 mL) inhalation Q4-6H PRN 08/11/22 (0.083 %) solution for nebulization shortness of breath or wheezing #90 mL albuterol sulfate 90 mcg/actuation 1 inh inhalation QID PRN shortness 08/11/22 aerosol inhaler of breath or wheezing #8.5 grams prednisone 20 mg tablet 20 mg PO BID #10 tabs 08/11/22 prednisone 50 mg tablet 50 mg PO DAILY 4 days #4 tabs 08/15/22 Allergies Allergy/AdvReac Type Severity Reaction Status Date / Time shellfish derived Allergy Severe SHORTNESS Verified 08/12/22 20:34 OF BREATH, SWELLING shrimp Allergy Severe ANAPHYLAXIS Verified 08/12/22 20:34 Review of Systems Review of Systems: Pertinent positives and negatives as stated in [facility] Past Medical History Source: nursing notes reviewed Medical History Asthma Asthma Pneumonia due to 2019 novel coronavirus Family History Family History Mother Asthma Social History Social History Household Members: None Housing: House Do you presently have visiting nurse or other home services: No Alcohol intake: former Patient Tobacco Use Status: Never used Tobacco Advance Directives: No Advance Directives Information Provided: No service: No Current occupational status: unemployed Physical Exam Vital Signs: Vital Signs: Last Vital Signs Temp 97.9 F 08/15/22 12:40 Pulse 112 H 08/15/22 13:17 Resp 20 08/15/22 13:17 BP 131/92 H 08/15/22 12:40 Pulse Ox 95 08/15/22 13:17 O2 Del Method 08/15/22 13:17 O2 Flow Rate 2 08/15/22 10:43 BMI result Body Mass Index 36.6 VITAL SIGNS: Reviewed. GENERAL: Well developed, well nourished, in no acute distress. HEAD: Normocephalic/atraumatic EYES: PERRLA, EOMI EARS: Ext canals without abnormality OROPHARYNX: no oral lesions noted, posterior pharynx clear LUNGS: Decreased breath sounds bilaterally with expiratory wheeze, tachypnea is present as well as increased work of breathing. SpO2<92> CARDIOVASCULAR: Regular rate and rhythm without noted murmurs ABDOMEN: Soft, non-tender, non-distended with bowel sounds. MUSCULOSKELETAL: No tenderness, deformities, or effusions noted on gross inspection. EXTREMITIES: No cyanosis, clubbing or edema. SKIN: Inspection of the skin reveals no rashes NEUROLOGIC: Alert and oriented x 4. Strength and sensation to light touch were grossly intact x 4. Medications Administered Discontinued Medications Generic Name Dose Route Start Last Admin Trade Name Darius PRN Reason Stop Dose Admin Albuterol Sulfate 7.5 mg/ 10 mg 08/15/22 08:46 08/15/22 09:12 Albuterol Sulfate 2.5 mg INHALE 08/15/22 08:47 10 mg ONCE ONE Administration Albuterol Sulfate 7.5 mg/ 10 mg 08/15/22 09:46 08/15/22 10:13 Albuterol Sulfate 2.5 mg INHALE 08/15/22 09:47 10 mg ONCE ONE Administration Albuterol Sulfate 7.5 mg/ 0 mg 08/15/22 11:09 08/15/22 11:36 Albuterol/Ipratropium 3 ml INHALE 08/15/22 11:10 0.5 each ONCE ONE Administration Magnesium Sulfate 2 gm in 50 mls @ 25 mls/hr 08/15/22 09:46 08/15/22 11:08 Magnesium Sulfate/H2o IV 08/15/22 11:45 Infused ONCE ONE Infusion Methylprednisolone Sodium Succinate 60 mg 08/15/22 09:00 08/15/22 09:55 Methylprednisolone Sod Succ 125 Mg/2 Ml Vial IVPUSH 08/15/22 09:01 60 mg ONCE ONE Administration Medical Decision Making Medical Decision Making [facility] Narrative: 27-year-old male with presentation for asthma exacerbation and borderline hypoxia with 90-91%. On re-evaluation, patient is feeling much better and is adamantly declining admission. On ambulation walking he is noted to be 96% throughout on room air. I will send a prescription for both Ventolin inhaler as well as a short course of prednisone. He knows that he needs to follow-up with his primary care provider. Differential Diagnosis Differential Diagnoses: The differential diagnosis associated with the presentation includes Asthma exacerbation, viral infection Admission/Observation Consideration of admission/observation: Escalation of care including admission/observation considered Admission was considered for patient as this is the 2nd asthma exacerbation, however on further consideration patient is not wanting to be admitted, walk ambulation with oxygenation demonstrates that he is 96% and residual tachycardia secondary to medication. He otherwise appears to be hemodynamically stable. Lab Data [facility] Lab Attestation statement: I reviewed the patient's lab results. Please see the discussion above Labs: Lab Results 08/15/22 08/15/22 Range/Units 09:10 09:10 COVID-19 (CHRISTIAN) Negative (Negative) COVID-19 Clin Com See Note Influenza Type A (BHARGAVI) Negative (Negative) Influenza Type B (BHARGAVI) Negative (Negative) Influenza A & B Note See Note Radiology Impression Radiologist Impression: My interpretation is in agreement with radiology's impression of the imaging studies. External Record Review External record reviewed: Outpatient record and Prior outpatient labs Chronic Conditions Patient?s care impacted by: Other Asthma Critical Care Time Critical Care Time Critical Care Time: Yes Total Critical Care Time: 30 Attestation: I personally attest to this time spent taking care of the patient. Discharge Plan Discharge Clinical Impression: Asthma exacerbation Patient Disposition: Home, Self-Care Instructions: Asthma (ED) Additional Instructions: 1. Please complete the short course of steroids that you have been placed on. 2. Follow-up with your primary care provider in the next 1-2 days. Return to the ER for worsening symptoms. Prescriptions: New prednisone 50 mg tablet 50 mg PO DAILY 4 Days Qty: 4 0RF No Action prednisone 20 mg tablet 40 mg PO DAILY Qty: 10 0RF albuterol sulfate [ProAir HFA] 90 mcg/actuation HFA aerosol inhaler 2 puff inhalation Q4-6H PRN (Reason: Wheezing) Qty: 8.5 0RF prednisone 20 mg tablet 40 mg PO DAILY Qty: 10 0RF albuterol sulfate [ProAir HFA] 90 mcg/actuation HFA aerosol inhaler 2 puff inhalation Q4-6H PRN (Reason: shortness of breath or wheezing) Qty: 8.5 3RF albuterol sulfate 2.5 mg /3 mL (0.083 %) solution for nebulization 2.5 mg inhalation Q4-6H PRN (Reason: shortness of breath or wheezing) Qty: 90 0RF fluticasone propion-salmeterol [Advair Diskus] 500-50 mcg/dose blister with device 1 inh inhalation BID Qty: 60 0RF (DME) nebulizer and compressor Device See Rx Instructions .Route Qty: 1 0RF Rx Instructions: As directed albuterol sulfate 90 mcg/actuation HFA aerosol inhaler 2 puff inhalation Q4-6H PRN (Reason: shortness of breath or wheezing) Qty: 8.5 0RF (DME) nebulizers [Aeroneb Go Nebulizer] Misc See Rx Instructions .Route Qty: 1 0RF Rx Instructions: As directed montelukast [Singulair] 10 mg Tablet 10 mg PO DAILY albuterol sulfate 2.5 mg /3 mL (0.083 %) solution for nebulization 2.5 mg inhalation Q4-6H PRN (Reason: shortness of breath or wheezing) Qty: 90 0RF albuterol sulfate 90 mcg/actuation HFA aerosol inhaler 1 inh inhalation QID PRN (Reason: shortness of breath or wheezing) Qty: 8.5 0RF prednisone 20 mg tablet 20 mg PO BID Qty: 10 0RF Referrals: [facility] [Primary Care Provider] -
[2022-08-15] MEDS: Albuterol Sulfate 7.5 MG, Albuterol Sulfate (0.083%) 2.5 MG 10 MG INHALE ×2 (09:12→10:13)
[2022-08-15 09:42] LABS: IDNOW Serial# BCCEAD1C; Influenza A Negative (Negative); Influenza B2 Negative (Negative)
[2022-08-15 09:43] LABS: COVID-19 Test Negative (Negative); IDNOW Serial# 16C4AD1C
[2022-08-15] MEDS: methylPREDNISolone Sod Succ 125 MG/2 ML VIAL 60 MG IVPUSH (09:55)
[2022-08-15] MEDS: Magnesium Sulfate/H2O 2 GM/50 ML PIGGYBACK IV (09:56)
[2022-08-15] MEDS: Albuterol Sulfate 7.5 MG, Albuterol/Iprat 2.5/0.5MG 3 ML 3 ML INHALE (11:36)
[2022-08-15] MEDS: Albuterol Sulfate 90 MCG 8 GM INHALER 2 PUFF INHALE (13:35)
== END 2022-08-15 13:37 | disposition home or self-care (01) ==
PROVIDERS: Emergency Provider Student in an Organized Health Care Education/Training Program
DX: J45.901 Unspecified asthma with (acute) exacerbation (principal); Z20.822 Contact with and (suspected) exposure to COVID-19
CPT/HCPCS: 71045; 87502; 87635; 94640; 94664; 96365; 96375; 99284; 99285; J2930; J3475

== ENCOUNTER 2022-08-28 14:52 | Emergency (ER) | payer MEDICAID, SELFPAY ==
--- NOTE | ~2022-08-28 | XR_ITS ---
EXAMINATION: XR CHEST CLINICAL INFORMATION: Pneumonia, cough COMPARISON: Chest x-ray on 08/15/2022 TECHNIQUE: Frontal view of the chest was obtained. FINDINGS: No significant abnormality is noted involving the heart, lungs, mediastinum, bony thorax or soft tissues. XR/XR chest 1V IMPRESSION: Unremarkable examination.
[2022-08-28 15:01] VITALS: BP 154/81; PULSE 104; RESP 18; TEMP 36.3; O2SAT 94; BMI 36.6
--- NOTE | 2022-08-28 15:02 | ED_ITS ---
HPI - Asthma General Chief Complaint: Asthma <CAMEDN Curry - Last Filed: 08/28/22 18:39> Stated Complaint: Asthma <CAMDEN Curry - Last Filed: 08/28/22 18:39> Time Seen by Provider: 08/28/22 15:55 <CAMDEN Curry - Last Filed: 08/28/22 18:39> Source: patient <CAMDEN Prajapati - Last Filed: 08/28/22 18:04> Mode of arrival: ambulatory <CAMDEN Prajapati - Last Filed: 08/28/22 18:04> Limitations: no limitations <CAMDEN Prajapati - Last Filed: 08/28/22 18:04> History of Present Illness HPI Narrative: This is a 27 old male past medical history significant for asthma presenting to the emergency department with complaints of gradually worsening shortness of breath which feels like his typical asthma attack, reports this has been going on for a few hours. Patient tells me typically he deals with these asthma attacks at home however he is having increasing shortness of breath which is concerning for him. Has tried multiple nebulizing treatments and inhalers with little to no relief. Patient reports he is also having a dry cough. His asthma is not well controlled. Patient denies fevers, chills, chest pain, nausea, vomiting, headache, vision changes, dizziness, weakness, myalgias, sick contacts. Denies long travel, no history of PE or DVT. <CAMDEN Prajapati - Last Filed: 08/28/22 18:04> Related Data Home Medications: Home Medications Medication Instructions Recorded Confirmed montelukast 10 mg tablet 10 mg PO DAILY 04/24/22 04/24/22 (Singulair) Previous Rx's Medication Instructions Recorded fluticasone 500 mcg-salmeterol 50 1 inh inhalation BID #60 ea 07/02/21 mcg/dose blistr powdr for inhalation (Advair Diskus) nebulizer and compressor #1 ea 09/15/21 albuterol sulfate 90 mcg/actuation 2 puff inhalation Q4-6H PRN 04/18/22 aerosol inhaler shortness of breath or wheezing #8.5 grams nebulizers (Aeroneb Go Nebulizer) #1 ea 04/18/22 albuterol sulfate 90 mcg/actuation 2 puff inhalation Q4-6H PRN 05/14/22 aerosol inhaler (ProAir HFA) Wheezing #8.5 grams prednisone 20 mg tablet 40 mg PO DAILY #10 tabs 05/14/22 albuterol sulfate 2.5 mg/3 mL 2.5 mg (3 mL) inhalation Q4-6H PRN 06/24/22 (0.083 %) solution for nebulization shortness of breath or wheezing #90 mL albuterol sulfate 90 mcg/actuation 2 puff inhalation Q4-6H PRN 06/24/22 aerosol inhaler (ProAir HFA) shortness of breath or wheezing #8.5 grams prednisone 20 mg tablet 40 mg PO DAILY #10 tabs 06/24/22 albuterol sulfate 2.5 mg/3 mL 2.5 mg (3 mL) inhalation Q4-6H PRN 08/11/22 (0.083 %) solution for nebulization shortness of breath or wheezing #90 mL albuterol sulfate 90 mcg/actuation 1 inh inhalation QID PRN shortness 08/11/22 aerosol inhaler of breath or wheezing #8.5 grams prednisone 20 mg tablet 20 mg PO BID #10 tabs 08/11/22 prednisone 50 mg tablet 50 mg PO DAILY 4 days #4 tabs 08/15/22 albuterol sulfate 2.5 mg/3 mL 2.5 mg (3 mL) inhalation Q6H #75 mL 08/28/22 (0.083 %) solution for nebulization albuterol sulfate 90 mcg/actuation 2 inh inhalation Q4-6H PRN 08/28/22 breath activated powder inhaler shortness of breath or wheezing #1 ea prednisone 20 mg tablet 40 mg PO DAILY 5 days #10 tabs 08/28/22 <CAMDEN Curry - Last Filed: 08/28/22 18:39> Allergies/Adverse Reactions: Allergies Allergy/AdvReac Type Severity Reaction Status Date / Time shellfish derived Allergy Severe SHORTNESS Verified 08/28/22 15:01 OF BREATH, SWELLING shrimp Allergy Severe ANAPHYLAXIS Verified 08/28/22 15:01 <CAMDEN Curry - Last Filed: 08/28/22 18:39> Review of Systems Review of Systems: Constitutional : No Weight loss, No Fever, No Chills, No Fatigue, No Malaise ENT/Mouth : No sore throat, No Rhinorrhea Eyes: No Eye Pain, No Swelling, No Redness Cardiovascular : No Chest Pain, + SOB, No Dyspnea on Exertion, No Orthopnea, No Edema, No Palpitations Respiratory : + Cough, No Sputum, + Wheezing Gastrointestinal : No Nausea, No Vomiting, No Diarrhea, No Constipation, No abdominal Pain, No Hematochezia, No Melena Genitourinary : No Dysuria, No Urinary Frequency, No Hematuria, Musculoskeletal : No joint pain, No Myalgias, No Joint Swelling Skin : No Skin Lesions, No rash Neuro : No Weakness, No Numbness, No Dizziness, No Headache Psych : No Anxiety/Panic, No Depression All other systems reviewed and are negative <CAMDEN Prajapati - Last Fi led: 08/28/22 18:04> Yes all other systems are reviewed and are negative <CAMDEN Prajapati - Last Filed: 08/28/22 18:04> [facility] Past Medical History Attestation statement: The following information was validated with the patient. <CAMDEN Prajapati - Last Filed: 08/28/22 18:04> Source: old records reviewed and nursing notes reviewed <CAMDEN Prajapati - Last Filed: 08/28/22 18:04> Medical History: Medical History Asthma Asthma Pneumonia due to 2019 novel coronavirus <CAMDEN Curry - Last Filed: 08/28/22 18:39> Family History Family History: Family History Mother Asthma <CAMDEN Curry - Last Filed: 08/28/22 18:39> Social History Social History: Social History Household Members: None Housing: House Do you presently have visiting nurse or other home services: No Alcohol intake: unknown Patient Tobacco Use Status: Never used Tobacco Smoked in Last 30 Days: No Use of substances other than those prescribed or required for medical reasons: No Advance Directives: No Advance Directives Information Provided: Yes service: No Current occupational status: unemployed <CAMDEN Curry - Last Filed: 08/28/22 18:39> Physical Exam Vital Signs: Vital Signs: Last Vital Signs Temp 98.2 F 08/28/22 16:10 Pulse 98 08/28/22 18:03 Resp 18 08/28/22 17:50 BP 148/88 H 08/28/22 17:50 Pulse Ox 96 08/28/22 18:03 O2 Del Method 08/28/22 18:03 BMI result Body Mass Index 36.6 <CAMDEN Curry - Last Filed: 08/28/22 18:39> Vital Signs: Last Vital Signs Temp 98.2 F 08/28/22 16:10 Pulse 98 08/28/22 18:03 Resp 18 08/28/22 17:50 BP 148/88 H 08/28/22 17:50 Pulse Ox 96 08/28/22 18:03 O2 Del Method 08/28/22 18:03 BMI result Body Mass Index 36.6 Patient is noted to beTachycardic likelySecondaryTo multiple the Adderall treatments. <CAMDEN Prajapati - Last Filed: 08/28/22 18:04> Appearance: Alert.? Oriented X3.? Mild acute distress.?Patient speaking in full sentences Head: Normocephalic, atraumatic, no step-offs or deformities Eyes: Pupils equal, round and reactive to light.? ENT: Pharynx normal.? Neck: Normal inspection.? Neck supple.? CVS: Normal heart rate and rhythm.? Pulses normal.? Respiratory: Mild respiratory distress.? Breath sounds + wheezing throughout.? Abdomen: Soft and nontender.? Skin: Skin warm and dry.? Normal skin color.? Normal skin turgor.? Extremities: No lower extremity edema.? No calf ttp. 5/5 strength to bilateral upper and lower extremities Neuro: Oriented X 3.? No motor deficit.? No sensory deficit. CN 2-12 intact <CAMDEN Prajapati - Last Filed: 08/28/22 18:04> Course Course Course Narrative: RME: 27 yold male presents to the ED for asthma exacerbation. patient states coughing for the past couple of days. SARS and chest xray ordered. lungs positive for wheezing. ROom air 02 sat 94 and went up to 95%. meds ordered <CAMDEN Curry - Last Filed: 08/28/22 18:39> Reevaluation(s) Reevaluation #1: CBC with leukocytosis 15 point likely secondary to acute phase reactant from asthma exacerbation. I do not suspect infection. Chemistry with no acute electrolyte abnormalities requiring intervention. Influenza, COVID, RSV pending. Chest x-ray pending. <CAMDEN Prajapati - Last Filed: 08/28/22 18:04> Time: 16:02 <CAMDEN Prajapati - Last Filed: 08/28/22 18:04> Reevaluation #2: Chest x-ray unremarkable. At this time patient refusing albuterol hour long, he states he is feeling much better and would like to go home. Upon re- evaluation there is only mild expiratory wheezing, no signs of acute distress. Patient speaking in full sentences. Appears comfortable. Patient will be discharged with albuterol, albuterol nebs and prednisone. Patient is saturating between 94 and 96% on room air even after ambulation heart rate now 98. Educated patient on diagnosis and treatment plan, answered all question, patient verbalizes understanding. At this time patient will be discharged home, advised to return with new or worsening symptoms. Educated on worrisome signs and symptoms and when to return. At this time I feel comfortable discharge home. <CAMDEN Prajapati - Last Filed: 08/28/22 18:04> Time: 17:46 <CAMDEN Prajapati - Last Filed: 08/28/22 18:04> Medications Administered Discontinued Medications Generic Name Dose Route Start Last Admin Trade Name Freq PRN Reason Stop Dose Admin Albuterol Sulfate 5 mg/ 7.5 mg 08/28/22 16:00 08/28/22 17:02 Albuterol Sulfate 2.5 mg INHALE 08/28/22 16:01 7.5 mg ONCE ONE Administration Albuterol Sulfate 5 mg/ 7.5 mg 08/28/22 17:25 08/28/22 17:49 Albuterol Sulfate 2.5 mg INHALE 08/28/22 17:26 Not Given ONCE ONE Albuterol Sulfate 2.5 mg/ 0 mg 08/28/22 15:02 08/28/22 15:21 Ipratropium [place] 0.5 mg INHALE 08/28/22 15:03 1 each ONCE ONE Administration Magnesium Sulfate 2 gm in 50 mls @ 25 mls/hr 08/28/22 16:00 08/28/22 17:35 Magnesium Sulfate/H2o IV 08/28/22 17:59 Infused ONCE ONE Infusion Methylprednisolone Sodium Succinate 125 mg 08/28/22 16:00 08/28/22 16:13 Methylprednisolone Sod Succ 125 Mg/2 Ml Vial IVPUSH 08/28/22 16:01 125 mg ONCE ONE Administration Prednisone 60 mg 08/28/22 15:02 08/28/22 15:17 Prednisone 20 Mg Tablet PO 08/28/22 15:03 60 mg ONCE ONE Administration <CAMDEN Curry - Last Filed: 08/28/22 18:39> Medications Administered Discontinued Medications Generic Name Dose Route Start Last Admin Trade Name Freq PRN Reason Stop Dose Admin Albuterol Sulfate 5 mg/ 7.5 mg 08/28/22 16:00 08/28/22 17:02 Albuterol Sulfate 2.5 mg INHALE 08/28/22 16:01 7.5 mg ONCE ONE Administration Albuterol Sulfate 5 mg/ 7.5 mg 08/28/22 17:25 08/28/22 17:49 Albuterol Sulfate 2.5 mg INHALE 08/28/22 17:26 Not Given ONCE ONE Albuterol Sulfate 2.5 mg/ 0 mg 08/28/22 15:02 08/28/22 15:21 Ipratropium [place] 0.5 mg INHALE 08/28/22 15:03 1 each ONCE ONE Administration Magnesium Sulfate 2 gm in 50 mls @ 25 mls/hr 08/28/22 16:00 08/28/22 17:35 Magnesium Sulfate/H2o IV 08/28/22 17:59 Infused ONCE ONE Infusion Methylprednisolone Sodium Succinate 125 mg 08/28/22 16:00 08/28/22 16:13 Methylprednisolone Sod Succ 125 Mg/2 Ml Vial IVPUSH 08/28/22 16:01 125 mg ONCE ONE Administration Prednisone 60 mg 08/28/22 15:02 08/28/22 15:17 Prednisone 20 Mg Tablet PO 08/28/22 15:03 60 mg ONCE ONE Administration <CAMDEN Prajapati - Last Filed: 08/28/22 18:04> Medical Decision Making Medical Decision Making [facility] Narrative: 1559 This is a 27-year-old male presenting with shortness of breath, wheezing feels like his typical asthma exacerbation x few hours. Nebulizing treatments albuterol treatments not help Physical exam with wheezing throughout and mild respiratory distress patient 94- 95% on room air. No use of intercostal muscles for breathing. Negative Dyan bilaterally. Likely acute asthma exacerbation or viral illness. I did do not suspect PE or PNA . Tachycardia likely secondary to albuterol treatments. Plan at this time viral testing, chest x-ray, basic labs will give nebulizing treatment, magnesium, Solu-Medrol. <CAMDEN Prajapati - Last Filed: 08/28/22 18:04> Differential Diagnosis Differential Diagnoses: The differential diagnosis associated with the presentation includes <CAMDEN Prajapati - Last Filed: 08/28/22 18:04> Likely acute asthma exacerbation or viral illness. I did do not suspect PE or PNA. Tachycardia likely secondary to albuterol treatments. <CAMDEN Prajapati - Last Filed: 08/28/22 18:04> Admission/Observation Consideration of admission/observation: Escalation of care including admission/observation considered <CAMDEN Prajapati - Last Filed: 08/28/22 18:04> Unlikely <CAMDEN Prajapati - Last Filed: 08/28/22 18:04> Lab Data [facility] Lab Attestation statement: I reviewed the patient's lab results. <CAMDEN Prajapati - Last Filed: 08/28/22 18:04> Result Diagrams: 08/28/22 15:24 08/28/22 15:24 <CAMDEN Curry - Last Filed: 08/28/22 18:39> Labs: Lab Results 08/28/22 08/28/22 08/28/22 Range/Units 15:24 15:24 15:24 WBC 15.4 H (4.8-10.8) X10*3/uL RBC 5.66 (4.60-5.80) X10*6/uL Hgb 15.3 (14.0-18.0) g/dl Hct 45.2 (42.0-52.0) % MCV 79.9 L (80.0-98.0) fL MCH 27.0 (27.0-33.0) pg MCHC 33.8 (31.0-36.0) g/dl RDW 12.2 (11.0-16.0) % Plt Count 349 (160-400) X10*3/uL MPV 9.1 L (9.4-12.4) fL Immature Gran % (Auto) 0.5 H (0.0-0.4) % Neut % (Auto) 57.4 (45-73) % Lymph % (Auto) 22.9 (20-40) % [place] % (Auto) 7.8 (2-11) % Eos % (Auto) 10.2 H (0-4) % Baso % (Auto) 1.2 (0-2) % Lymph # (Auto) 3.5 (1.2-4.9) X10*3/uL [place] # (Auto) 1.2 (0.1-1.2) X10*3/uL Eos # (Auto) 1.6 H (0.0-0.4) X10*3/uL Baso # (Auto) 0.2 (0.0-0.2) X10*3/uL Abs Immat Gran (auto) 0.08 H (0.00-0.03) X10*3/uL Absolute Neuts (auto) 8.8 H (2.0-8.3) x10*3/uL Absolute Nucleated RBC 0.000 (0.0-0.012) X10*3/uL Nucleated RBC % (auto) 0.0 (0.0-0.2) /100WBC Sodium 140 (135-145) mmol/L Potassium 3.8 (3.3-5.1) mmol/L Chloride 104 (96-108) mmol/L Carbon Dioxide 24 (22-29) mmol/L Anion Gap 16 (12-20) BUN 8 L (9-16) mg/dL Creatinine 0.84 (0.5-1.4) mg/dL Estim Creat Clear Calc 142.2 Estimated GFR > 60 Random Glucose 88 (60-115) mg/dL Calcium 9.0 (8.4-10.2) mg/dL Influenza Type A (PCR) NEGATIVE (Negative) Influenza Type B (PCR) NEGATIVE (Negative) RSV RNA Qual (PCR) NEGATIVE (Negative) SARS-CoV-2 RNA (RT-PCR) NEGATIVE (Negative) <CAMDEN Curry - Last Filed: 08/28/22 18:39> Lab Results 08/28/22 08/28/22 08/28/22 Range/Units 15:24 15:24 15:24 WBC 15.4 H (4.8-10.8) X10*3/uL RBC 5.66 (4.60-5.80) X10*6/uL Hgb 15.3 (14.0-18.0) g/dl Hct 45.2 (42.0-52.0) % MCV 79.9 L (80.0-98.0) fL MCH 27.0 (27.0-33.0) pg MCHC 33.8 (31.0-36.0) g/dl RDW 12.2 (11.0-16.0) % Plt Count 349 (160-400) X10*3/uL MPV 9.1 L (9.4-12.4) fL Immature Gran % (Auto) 0.5 H (0.0-0.4) % Neut % (Auto) 57.4 (45-73) % Lymph % (Auto) 22.9 (20-40) % [place] % (Auto) 7.8 (2-11) % Eos % (Auto) 10.2 H (0-4) % Baso % (Auto) 1.2 (0-2) % Lymph # (Auto) 3.5 (1.2-4.9) X10*3/uL [place] # (Auto) 1.2 (0.1-1.2) X10*3/uL Eos # (Auto) 1.6 H (0.0-0.4) X10*3/uL Baso # (Auto) 0.2 (0.0-0.2) X10*3/uL Abs Immat Gran (auto) 0.08 H (0.00-0.03) X10*3/uL Absolute Neuts (auto) 8.8 H (2.0-8.3) x10*3/uL Absolute Nucleated RBC 0.000 (0.0-0.012) X10*3/uL Nucleated RBC % (auto) 0.0 (0.0-0.2) /100WBC Sodium 140 (135-145) mmol/L Potassium 3.8 (3.3-5.1) mmol/L Chloride 104 (96-108) mmol/L Carbon Dioxide 24 (22-29) mmol/L Anion Gap 16 (12-20) BUN 8 L (9-16) mg/dL Creatinine 0.84 (0.5-1.4) mg/dL Estim Creat Clear Calc 142.2 Estimated GFR > 60 Random Glucose 88 (60-115) mg/dL Calcium 9.0 (8.4-10.2) mg/dL Influenza Type A (PCR) NEGATIVE (Negative) Influenza Type B (PCR) NEGATIVE (Negative) RSV RNA Qual (PCR) NEGATIVE (Negative) SARS-CoV-2 RNA (RT-PCR) NEGATIVE (Negative) <CAMDEN Prajapati - Last Filed: 08/28/22 18:04> Independent Interpretation I performed an independent interpretation of an: Plain X-Ray <CAMDEN Prajapati - Last Filed: 08/28/22 18:04> Radiology Impression Discussion of test interpretation with radiology: I have reviewed the radiologist's reading. <CAMDEN Prajapati - Last Filed: 08/28/22 18:04> External Record Review External record reviewed: Inpatient record, Office record, Outpatient record, Prior outpatient labs, Prior outpatient radiology, Primary care record and Outside ED record <CAMDEN Prajapati - Last Filed: 08/28/22 18:04> Core Measures AMI core measures followed: Yes <CAMDEN Prajapati Last Filed: 08/28/22 18:04> Measure exclusions: not indicated <CAMDEN Prajapati Last Filed: 08/28/22 18:04> Critical Care Time Critical Care Time Critical Care Time: No <CAMDEN Prajapati - Last Filed: 08/28/22 18:04> Discharge Plan Discharge Clinical Impression: Asthma <CAMDEN Curry - Last Filed: 08/28/22 18:39> Patient Disposition: Home, Self-Care <CAMDEN Curry - Last Filed: 08/28/22 18:39> Instructions: Asthma (ED), Wheezing (ED) <CAMDEN Curry - Last Filed: 08/28/22 18:39> Additional Instructions: Take your medications as prescribed. If you were prescribed antibiotics today, it is important that you take your medication to their entirety, do not skip any doses, do not finish them early. Follow-up with your primary care provider this week. Return to the emergency department with new or worsening symptoms. Such as fevers, chills, chest pain, shortness of breath, nausea, vomiting, dizziness, headache, vision changes, lethargy In case of emergency call 911 <CAMDEN Curry - Last Filed: 08/28/22 18:39> Prescriptions: New albuterol sulfate 90 mcg/actuation aerosol powdr breath activated 2 inh inhalation Q4-6H PRN (Reason: shortness of breath or wheezing) Qty: 1 0RF albuterol sulfate 2.5 mg /3 mL (0.083 %) solution for nebulization 2.5 mg inhalation Q6H Qty: 75 0RF prednisone 20 mg tablet 40 mg PO DAILY 5 Days Qty: 10 0RF No Action prednisone 20 mg tablet 40 mg PO DAILY Qty: 10 0RF albuterol sulfate [ProAir HFA] 90 mcg/actuation HFA aerosol inhaler 2 puff inhalation Q4-6H PRN (Reason: Wheezing) Qty: 8.5 0RF prednisone 20 mg tablet 40 mg PO DAILY Qty: 10 0RF albuterol sulfate [ProAir HFA] 90 mcg/actuation HFA aerosol inhaler 2 puff inhalation Q4-6H PRN (Reason: shortness of breath or wheezing) Qty: 8.5 3RF albuterol sulfate 2.5 mg /3 mL (0.083 %) solution for nebulization 2.5 mg inhalation Q4-6H PRN (Reason: shortness of breath or wheezing) Qty: 90 0RF prednisone 50 mg tablet 50 mg PO DAILY 4 Days Qty: 4 0RF fluticasone propion-salmeterol [Advair Diskus] 500-50 mcg/dose blister with device 1 inh inhalation BID Qty: 60 0RF (DME) nebulizer and compressor Device See Rx Instructions .Route Qty: 1 0RF Rx Instructions: As directed albuterol sulfate 90 mcg/actuation HFA aerosol inhaler 2 puff inhalation Q4-6H PRN (Reason: shortness of breath or wheezing) Qty: 8.5 0RF (DME) nebulizers [Aeroneb Go Nebulizer] Misc See Rx Instructions .Route Qty: 1 0RF Rx Instructions: As directed montelukast [Singulair] 10 mg Tablet 10 mg PO DAILY albuterol sulfate 2.5 mg /3 mL (0.083 %) solution for nebulization 2.5 mg inhalation Q4-6H PRN (Reason: shortness of breath or wheezing) Qty: 90 0RF albuterol sulfate 90 mcg/actuation HFA aerosol inhaler 1 inh inhalation QID PRN (Reason: shortness of breath or wheezing) Qty: 8.5 0RF prednisone 20 mg tablet 20 mg PO BID Qty: 10 0RF <CAMDEN Curry - Last Filed: 08/28/22 18:39> Referrals: ED Physician,Generic [Physician] - 2 days <CAMDEN Curry - Last Filed: 08/28/22 18:39> Discharge Date/Time: 08/28/22 18:26 <CAMDEN Curry - Last Filed: 08/28/22 18:39>
[2022-08-28] MEDS: predniSONE 20 MG TABLET 60 MG PO (15:17)
[2022-08-28 15:23] VITALS: PULSE 112; RESP 18; O2SAT 94
--- NOTE | 2022-08-28 15:25 | PC.NURSE ---
Patient presents toED for concern of asthma exacerbation ls tight throughout no stridor noted no inspiratory or expiratory wheezing. Patient states having difficulty having conversation wanted to come in early before asthma became too bad. Rescue inhaler used at home by patient denies smoking or environmental triggers for asthma. AOx 4 no distress noted. IV access obtained labs collected and sent. Ordered steroids admin, respiratory at bedside providing nebulizer treatment
[2022-08-28 15:29] LABS: MANUAL DIFF FLAG NO
[2022-08-28 15:30] LABS: Basophils Absolute Auto 0.2 X10*3/uL (0.0-0.2); Basophils Percent Auto 1.2 % (0-2); Eosinophils Absolute Auto 1.6 X10*3/uL (0.0-0.4); Eosinophils Percent Auto 10.2 % (0-4); Hematocrit 45.2 % (42.0-52.0); Hemoglobin 15.3 g/dl (14.0-18.0); Imm Gran Abs Auto 0.08 X10*3/uL (0.00-0.03); Imm Gran Pct Auto 0.5 % (0.0-0.4); Lymphocytes Absolute Auto 3.5 X10*3/uL (1.2-4.9); Lymphocytes Percent Auto 22.9 % (20-40); Mean Corpuscular HGB Conc 33.8 g/dl (31.0-36.0); Mean Corpuscular Volume 79.9 fL (80.0-98.0); Mean Platelet Volume 9.1 fL (9.4-12.4); Monocytes Absolute Auto 1.2 X10*3/uL (0.1-1.2); Monocytes Percent Auto 7.8 % (2-11); Neutrophils Absolute Auto 8.8 x10*3/uL (2.0-8.3); Neutrophils Percent Auto 57.4 % (45-73); Platelet Count 349 X10*3/uL (160-400); Red Blood Count 5.66 X10*6/uL (4.60-5.80); Red Cell Distribution Width 12.2 % (11.0-16.0); White Blood Count 15.4 X10*3/uL (4.8-10.8)
[2022-08-28 15:50] LABS: Anion Gap 16 (12-20); Blood Urea Nitrogen 8 mg/dL (9-16); Carbon Dioxide 24 mmol/L (22-29); Chloride 104 mmol/L (96-108); Creatinine Clr Calc Pharmacy 142.2; Estimated Glomerular Filt Rate > 60; Glucose Random 88 mg/dL (60-115); Potassium 3.8 mmol/L (3.3-5.1); Sodium 140 mmol/L (135-145)
--- NOTE | 2022-08-28 16:02 | PC.NURSE ---
Notified provider patient assessed post breathing treatment sounds slightly clearer bu still tight patient reports no change no distress noted will CTM
[2022-08-28 16:10] VITALS: BP 137/95; PULSE 107; RESP 22; TEMP 36.8; O2SAT 93
[2022-08-28 16:10] LABS: Influenza A PCR NEGATIVE (Negative); Influenza B PCR NEGATIVE (Negative); Resp Syncy Virus RNA Qual PCR NEGATIVE (Negative); SARS COV2 PCR INHOUSE NEGATIVE (Negative)
[2022-08-28] MEDS: methylPREDNISolone Sod Succ 125 MG/2 ML VIAL IVPUSH (16:13)
[2022-08-28] MEDS: Magnesium Sulfate/H2O 2 GM/50 ML PIGGYBACK IV (16:13)
--- NOTE | 2022-08-28 16:54 | PC.NURSE ---
Patient reports some improvement post solumederol and magnesium sulfate, respiratory called for nebulizer will CTM
[2022-08-28 17:02] VITALS: PULSE 97; RESP 24; O2SAT 93
[2022-08-28] MEDS: Albuterol Sulfate 5 MG, Albuterol Sulfate (0.083%) 2.5 MG 7.5 MG INHALE (17:02)
--- NOTE | 2022-08-28 17:40 | PC.NURSE ---
Notified provider patient does not want hour long breathing treatment, LS markedly improved. Provider to speak with patient will CTM.
[2022-08-28 17:50] VITALS: BP 148/88; PULSE 104; RESP 18; O2SAT 93
--- NOTE | 2022-08-28 17:53 | PC.NURSE ---
Respiratory therapy relayed to provider patient refusing hour long treatment will prepare for dispo
[2022-08-28 18:03] VITALS: PULSE 98; O2SAT 96
== END 2022-08-28 18:26 | disposition home or self-care (01) ==
PROVIDERS: Physician Assistant; Emergency Provider Internal Medicine
DX: J45.909 Unspecified asthma, uncomplicated (principal); R06.02 Shortness of breath; Z20.822 Contact with and (suspected) exposure to COVID-19; Z20.828 Contact with and (suspected) exposure to other viral communicable diseases; Z79.899 Other long term (current) drug therapy
CPT/HCPCS: 0241U; 36415; 71045; 80048; 85025; 94640; 96365; 96366; 96375; 99284; J2930; J3475

== ENCOUNTER 2022-10-25 22:54 | Emergency (ER) | payer MEDICAID, SELFPAY ==
[2022-10-25 22:55] VITALS: BP 130/87; PULSE 109; RESP 24; TEMP 36.7; O2SAT 94; BMI 37.4
[2022-10-25] MEDS: Albuterol Sulfate (0.083%) 2.5 MG/3 ML VIAL.NEB 10 MG INHALE (23:09)
[2022-10-25 23:10] VITALS: PULSE 98; RESP 24; O2SAT 95
--- NOTE | 2022-10-25 23:30 | ED.ASTHMA ---
HPI - Asthma General Chief Complaint: Asthma Stated Complaint: asthma Time Seen by Provider: 10/25/22 23:09 Source: patient Mode of arrival: ambulatory Limitations: no limitations History of Present Illness HPI Narrative: Patient comes emergency room complaining of an asthma exacerbation. Patient states that he has been wheezing since yesterday. Patient has tried his home inhalers, nebulizers is nothing helping. Patient denies chest pain Related Data Home Medications Medication Instructions Recorded Confirmed montelukast 10 mg tablet 10 mg PO DAILY 04/24/22 04/24/22 (Singulair) Previous Rx's Medication Instructions Recorded fluticasone 500 mcg-salmeterol 50 1 inh inhalation BID #60 ea 07/02/21 mcg/dose blistr powdr for inhalation (Advair Diskus) nebulizer and compressor #1 ea 09/15/21 albuterol sulfate 90 mcg/actuation 2 puff inhalation Q4-6H PRN 04/18/22 aerosol inhaler shortness of breath or wheezing #8.5 grams nebulizers (Aeroneb Go Nebulizer) #1 ea 04/18/22 albuterol sulfate 90 mcg/actuation 2 puff inhalation Q4-6H PRN 05/14/22 aerosol inhaler (ProAir HFA) Wheezing #8.5 grams prednisone 20 mg tablet 40 mg PO DAILY #10 tabs 05/14/22 albuterol sulfate 2.5 mg/3 mL 2.5 mg (3 mL) inhalation Q4-6H PRN 06/24/22 (0.083 %) solution for nebulization shortness of breath or wheezing #90 mL albuterol sulfate 90 mcg/actuation 2 puff inhalation Q4-6H PRN 06/24/22 aerosol inhaler (ProAir HFA) shortness of breath or wheezing #8.5 grams prednisone 20 mg tablet 40 mg PO DAILY #10 tabs 06/24/22 albuterol sulfate 2.5 mg/3 mL 2.5 mg (3 mL) inhalation Q4-6H PRN 08/11/22 (0.083 %) solution for nebulization shortness of breath or wheezing #90 mL albuterol sulfate 90 mcg/actuation 1 inh inhalation QID PRN shortness 08/11/22 aerosol inhaler of breath or wheezing #8.5 grams prednisone 20 mg tablet 20 mg PO BID #10 tabs 08/11/22 prednisone 50 mg tablet 50 mg PO DAILY 4 days #4 tabs 08/15/22 albuterol sulfate 2.5 mg/3 mL 2.5 mg (3 mL) inhalation Q6H #75 mL 08/28/22 (0.083 %) solution for nebulization albuterol sulfate 90 mcg/actuation 2 inh inhalation Q4-6H PRN 08/28/22 breath activated powder inhaler shortness of breath or wheezing #1 ea prednisone 20 mg tablet 40 mg PO DAILY 5 days #10 tabs 08/28/22 albuterol sulfate 90 mcg/actuation 2 puff inhalation Q4-6H PRN 10/26/22 aerosol inhaler shortness of breath or wheezing #8.5 grams prednisone 50 mg tablet 50 mg PO DAILY #5 tabs 10/26/22 Allergies Allergy/AdvReac Type Severity Reaction Status Date / Time shellfish derived Allergy Severe SHORTNESS Verified 08/28/22 15:01 OF BREATH, SWELLING shrimp Allergy Severe ANAPHYLAXIS Verified 08/28/22 15:01 Review of Systems Review of Systems: Constitutional : No Weight loss, No Fever, No Chills, No Night Sweats, No Fatigue, No Malaise ENT/Mouth : No Hearing loss, No Ear Pain, No Nasal Congestion, No Sinus Pain, No Hoarseness, No sore throat, No Rhinorrhea, No Swallowing Difficulty Eyes: No Eye Pain, No Swelling, No Redness, No Foreign Body, No Discharge, No Vision Changes Cardiovascular : No Chest Pain, No SOB, No Dyspnea on Exertion, No Orthopnea, No Edema, No Palpitations Respiratory : Complaining of more cough than usual wheezing, shortness of breath Gastrointestinal : No Nausea, No Vomiting, No Diarrhea, No Constipation, No abdominal Pain, No Hematochezia, No Melena Genitourinary : no irregular bleeding, No Dysuria, No Urinary Frequency, No Hematuria, No Urinary Incontinence, No Urgency, No Flank Pain, No Urinary Flow Changes, No Hesitancy Musculoskeletal : No joint pain, No Myalgias, No Joint Swelling Skin : No Skin Lesions, No rash Neuro : No Weakness, No Numbness, No Paresthesias, No Loss of Consciousness, No Dizziness, No Headache Psych : No Anxiety/Panic, No Depression, No SI/HI/AH/VH, No Social Issues, Heme/Lymph: No Bruising, No Bleeding,No Lymphadenopathy Endocrine : No Polyuria, No Polydipsia, No Temperature Intolerance [facility] Past Medical History Medical History Asthma Asthma Pneumonia due to 2019 novel coronavirus Family History Family History Mother Asthma Social History Social History Household Members: None Housing: House Do you presently have visiting nurse or other home services: No Alcohol intake: unknown Patient Tobacco Use Status: Never used Tobacco Advance Directives: No Advance Directives Information Provided: No service: No Current occupational status: unemployed Physical Exam Vital Signs: Vital Signs: Last Vital Signs Temp 98.0 F 10/25/22 22:55 Pulse 98 10/25/22 23:10 Resp 24 H 10/25/22 23:10 BP 130/87 10/25/22 22:55 Pulse Ox 94 10/26/22 00:00 O2 Del Method 10/26/22 00:00 BMI result Body Mass Index 37.4 Const: Other: Appearance: Alert. Oriented X3. No acute distress. Eyes: Pupils equal, round and reactive to light. ENT: Pharynx normal. Neck: Normal inspection. Neck supple. No lymph nodes noted. No crepitus CVS: Normal heart rate and rhythm. Pulses normal. Normal S1 and S2 Respiratory: No significant respiratory distress, patient is talking to someone on the cellphone in full sentences. Audible wheezing bilaterally Abdomen: Soft and nontender. No rigidity. No distention. Skin: Skin warm and dry. Normal skin color. Normal skin turgor. Extremities: No lower extremity edema. No Lacerations. No Rash Neuro: Oriented X 3. No motor deficit. No sensory deficit. Moving all extremities. No slurred speech. CN 2 through 12 grossly intact Psych: calm, cooperative, normal affect Course Course Course Narrative: -patient receiving an hour long nebulization, Solu-Medrol, magnesium. Medications Administered Generic Name Dose Route Start Last Admin Trade Name Freq PRN Reason Stop Dose Admin Magnesium Sulfate 2 gm in 50 mls @ 25 mls/hr 10/25/22 23:10 10/26/22 00:19 Magnesium Sulfate/H2o IV 10/26/22 01:09 Infused ONCE ONE Infusion Discontinued Medications Generic Name Dose Route Start Last Admin Trade Name Freq PRN Reason Stop Dose Admin Albuterol Sulfate 10 mg 10/25/22 23:00 10/25/22 23:09 Albuterol Sulfate (0.083%) 2.5 Mg/3 Ml Vial.Neb INHALE 10/25/22 23:01 10 mg ONCE ONE Administration Methylprednisolone Sodium Succinate 125 mg 10/25/22 23:10 10/26/22 00:02 Methylprednisolone Sod Succ 125 Mg/2 Ml Vial IVPUSH 10/25/22 23:11 125 mg ONCE ONE Administration Medical Decision Making Medical Decision Making MDM Narrative: -patient feeling much better, speaking full sentences, minimal wheezing, good air movement. -patient was ambulated in the emergency room, oxygen saturation remained at 95%. Patient denies chest pain or shortness of breath, no longer wheezing. Differential Diagnosis Differential Diagnoses: The differential diagnosis associated with the presentation includes (Asthma exacerbation, viral URI, viral syndrome) Discharge Plan Discharge Clinical Impression: Asthma Patient Disposition: Home, Self-Care Instructions: Asthma (ED) Additional Instructions: Please follow-up with your primary care physician tomorrow. If you have any worsening or new symptoms, please return to the emergency room or call 911 Prescriptions: New albuterol sulfate 90 mcg/actuation HFA aerosol inhaler 2 puff inhalation Q4-6H PRN (Reason: shortness of breath or wheezing) Qty: 8.5 1RF prednisone 50 mg tablet 50 mg PO DAILY Qty: 5 0RF No Action prednisone 20 mg tablet 40 mg PO DAILY Qty: 10 0RF albuterol sulfate [ProAir HFA] 90 mcg/actuation HFA aerosol inhaler 2 puff inhalation Q4-6H PRN (Reason: Wheezing) Qty: 8.5 0RF prednisone 20 mg tablet 40 mg PO DAILY Qty: 10 0RF albuterol sulfate [ProAir HFA] 90 mcg/actuation HFA aerosol inhaler 2 puff inhalation Q4-6H PRN (Reason: shortness of breath or wheezing) Qty: 8.5 3RF albuterol sulfate 2.5 mg /3 mL (0.083 %) solution for nebulization 2.5 mg inhalation Q4-6H PRN (Reason: shortness of breath or wheezing) Qty: 90 0RF prednisone 50 mg tablet 50 mg PO DAILY 4 Days Qty: 4 0RF fluticasone propion-salmeterol [Advair Diskus] 500-50 mcg/dose blister with device 1 inh inhalation BID Qty: 60 0RF (DME) nebulizer and compressor Device See Rx Instructions .Route Qty: 1 0RF Rx Instructions: As directed albuterol sulfate 90 mcg/actuation HFA aerosol inhaler 2 puff inhalation Q4-6H PRN (Reason: shortness of breath or wheezing) Qty: 8.5 0RF (DME) nebulizers [Aeroneb Go Nebulizer] Misc See Rx Instructions .Route Qty: 1 0RF Rx Instructions: As directed montelukast [Singulair] 10 mg Tablet 10 mg PO DAILY albuterol sulfate 2.5 mg /3 mL (0.083 %) solution for nebulization 2.5 mg inhalation Q4-6H PRN (Reason: shortness of breath or wheezing) Qty: 90 0RF albuterol sulfate 90 mcg/actuation HFA aerosol inhaler 1 inh inhalation QID PRN (Reason: shortness of breath or wheezing) Qty: 8.5 0RF prednisone 20 mg tablet 20 mg PO BID Qty: 10 0RF albuterol sulfate 90 mcg/actuation aerosol powdr breath activated 2 inh inhalation Q4-6H PRN (Reason: shortness of breath or wheezing) Qty: 1 0RF albuterol sulfate 2.5 mg /3 mL (0.083 %) solution for nebulization 2.5 mg inhalation Q6H Qty: 75 0RF prednisone 20 mg tablet 40 mg PO DAILY 5 Days Qty: 10 0RF
[2022-10-26] VITALS: O2SAT 94
[2022-10-26] MEDS: Magnesium Sulfate/H2O 2 GM/50 ML PIGGYBACK IV (00:01)
[2022-10-26] MEDS: methylPREDNISolone Sod Succ 125 MG/2 ML VIAL IVPUSH (00:02)
[2022-10-26 00:51] VITALS: BP 154/76; PULSE 110; RESP 20; TEMP 36.4; O2SAT 94
--- NOTE | 2022-10-26 00:56 | PC.NURSE ---
Pt aox4 resting at the bedside in no apparent distress. IV line removed with no difficulty. Pt tolerated well. Discharge instructions reviewed with pt. Pt verbalizes understanding. Ambulatory with steady gait at discharge.
== END 2022-10-26 00:58 | disposition home or self-care (01) ==
PROVIDERS: Emergency Provider Emergency Medicine
DX: J45.909 Unspecified asthma, uncomplicated (principal)
CPT/HCPCS: 94640; 96365; 96375; 99284; J2930; J3475

== ENCOUNTER 2022-11-10 01:37 | Emergency (ER) | payer MEDICAID, SELFPAY ==
--- NOTE | 2022-11-10 | ECG_ITS ---
Test Reason : chest pain Blood Pressure : / mmHG Vent. Rate : 094 BPM Atrial Rate : 094 BPM P-R Int : 148 ms QRS Dur : 088 ms QT Int : 318 ms P-R-T Axes : 050 063 058 degrees QTc Int : 397 ms Normal sinus rhythm Normal ECG When compared with ECG of 30-APR-2021 11:18, No significant change was found Referred By: Generic ED Physician Electronically Signed By:ERIKA VILLARREAL
[2022-11-10 01:46] VITALS: BP 158/80; PULSE 96; RESP 18; TEMP 36.5; O2SAT 96; BMI 34.9
[2022-11-10 02:00] VITALS: PULSE 94
--- NOTE | 2022-11-10 02:06 | PC.NURSE ---
aox4 pt resting quietly, no apparent distress
--- NOTE | 2022-11-10 02:11 | ED_ITS ---
HPI - Chest Pain General Chief Complaint: Chest Pain Stated Complaint: chest pain Time Seen by Provider: 11/10/22 02:06 Source: patient Mode of arrival: ambulatory Limitations: no limitations History of Present Illness HPI narrative: Patient with history of asthma no known coronary disease no substance abuse feels much better from asthma ,noticed sudden onset of pressure-like chest pain midsternal for last 2 hours denies significant shortness of breath has occasional cough of heartburn feeling patient never had similar pain past no radiation of the pain Related Data Home Medications Medication Instructions Recorded Confirmed montelukast 10 mg tablet 10 mg PO DAILY 04/24/22 04/24/22 (Singulair) Previous Rx's Medication Instructions Recorded fluticasone 500 mcg-salmeterol 50 1 inh inhalation BID #60 ea 07/02/21 mcg/dose blistr powdr for inhalation (Advair Diskus) nebulizer and compressor #1 ea 09/15/21 albuterol sulfate 90 mcg/actuation 2 puff inhalation Q4-6H PRN 04/18/22 aerosol inhaler shortness of breath or wheezing #8.5 grams nebulizers (Aeroneb Go Nebulizer) #1 ea 04/18/22 albuterol sulfate 90 mcg/actuation 2 puff inhalation Q4-6H PRN 05/14/22 aerosol inhaler (ProAir HFA) Wheezing #8.5 grams prednisone 20 mg tablet 40 mg PO DAILY #10 tabs 05/14/22 albuterol sulfate 2.5 mg/3 mL 2.5 mg (3 mL) inhalation Q4-6H PRN 06/24/22 (0.083 %) solution for nebulization shortness of breath or wheezing #90 mL albuterol sulfate 90 mcg/actuation 2 puff inhalation Q4-6H PRN 06/24/22 aerosol inhaler (ProAir HFA) shortness of breath or wheezing #8.5 grams prednisone 20 mg tablet 40 mg PO DAILY #10 tabs 06/24/22 albuterol sulfate 2.5 mg/3 mL 2.5 mg (3 mL) inhalation Q4-6H PRN 08/11/22 (0.083 %) solution for nebulization shortness of breath or wheezing #90 mL albuterol sulfate 90 mcg/actuation 1 inh inhalation QID PRN shortness 08/11/22 aerosol inhaler of breath or wheezing #8.5 grams prednisone 20 mg tablet 20 mg PO BID #10 tabs 08/11/22 prednisone 50 mg tablet 50 mg PO DAILY 4 days #4 tabs 08/15/22 albuterol sulfate 2.5 mg/3 mL 2.5 mg (3 mL) inhalation Q6H #75 mL 08/28/22 (0.083 %) solution for nebulization albuterol sulfate 90 mcg/actuation 2 inh inhalation Q4-6H PRN 08/28/22 breath activated powder inhaler shortness of breath or wheezing #1 ea prednisone 20 mg tablet 40 mg PO DAILY 5 days #10 tabs 08/28/22 albuterol sulfate 90 mcg/actuation 2 puff inhalation Q4-6H PRN 10/26/22 aerosol inhaler shortness of breath or wheezing #8.5 grams prednisone 50 mg tablet 50 mg PO DAILY #5 tabs 10/26/22 pantoprazole 40 mg tablet,delayed 40 mg PO DAILY #30 tabs 11/10/22 release (Protonix) sucralfate 1 gram tablet 1 g PO BID #60 tabs 11/10/22 Allergies Allergy/AdvReac Type Severity Reaction Status Date / Time shellfish derived Allergy Severe SHORTNESS Verified 11/10/22 01:49 OF BREATH, SWELLING shrimp Allergy Severe ANAPHYLAXIS Verified 11/10/22 01:49 Review of Systems Review of Systems: Yes all other systems are reviewed and are negative PMFSH Past Medical History Medical History Asthma Asthma Pneumonia due to 2019 novel coronavirus Family History Family History Mother Asthma Social History Social History Household Members: None Housing: House Do you presently have visiting nurse or other home services: No Alcohol intake: never Patient Tobacco Use Status: Never used Tobacco Smoked in Last 30 Days: No Use of substances other than those prescribed or required for medical reasons: No Advance Directives: No Advance Directives Information Provided: Yes service: No Current occupational status: unemployed Physical Exam Vital Signs: Vital Signs: Last Vital Signs Temp 97.7 F 11/10/22 01:46 Pulse 96 11/10/22 01:46 Resp 18 11/10/22 01:46 BP 158/80 H 11/10/22 01:46 Pulse Ox 96 11/10/22 01:46 O2 Del Method Room Air 11/10/22 01:46 BMI result Body Mass Index 34.9 Appearance: Alert. Oriented X3. No acute distress. Eyes: PERRLA, No Nystagmus ENT: Pharynx normal. Oral Mucosa moist Neck: Normal inspection. Neck supple. CVS: Normal heart rate and rhythm. Pulses normal. Respiratory: No respiratory distress. Equal air entry bilateral, no wheezing/rales/rhonchi Abdomen: Soft and nontender. Bowel sounds are present, no mass palpable, no CVA tenderness Skin: Skin warm and dry. Normal skin color. Normal skin turgor. Extremities: No lower extremity edema. No calf tenderness Neuro: Oriented X 3. No motor deficit. Medications Administered Discontinued Medications Generic Name Dose Route Start Last Admin Trade Name Freq PRN Reason Stop Dose Admin Al Hydroxide/Mg Hydroxide 30 ml 11/10/22 02:09 11/10/22 02:31 Magnesium Hydrox/Alum Hydrox 30 Ml Oral.Susp PO 11/10/22 02:10 30 ml ONCE ONE Administration Medical Decision Making Medical Decision Making [facility] Narrative: Patient with Atypical pain heart score of 0 likely from esophageal inflammation for frequent prednisone use patient felt better after Maalox will discharge patient home on Protonix and Maalox Lab Data [facility] Lab Attestation statement: I reviewed the patient's lab results. 11/10/22 02:08 11/10/22 02:08 Labs: Lab Results 11/10/22 11/10/22 11/10/22 Range/Units 02:08 02:08 02:08 WBC 12.2 H (4.8-10.8) X10*3/uL RBC 5.36 (4.60-5.80) X10*6/uL Hgb 14.8 (14.0-18.0) g/dl Hct 42.9 (42.0-52.0) % MCV 80.0 (80.0-98.0) fL MCH 27.6 (27.0-33.0) pg MCHC 34.5 (31.0-36.0) g/dl RDW 11.9 (11.0-16.0) % Plt Count 345 (160-400) X10*3/uL MPV 9.0 L (9.4-12.4) fL Immature Gran % (Auto) 0.7 H (0.0-0.4) % Neut % (Auto) 53.4 (45-73) % Lymph % (Auto) 31.1 (20-40) % [place] % (Auto) 7.8 (2-11) % Eos % (Auto) 5.9 H (0-4) % Baso % (Auto) 1.1 (0-2) % Lymph # (Auto) 3.8 (1.2-4.9) X10*3/uL [place] # (Auto) 1.0 (0.1-1.2) X10*3/uL Eos # (Auto) 0.7 H (0.0-0.4) X10*3/uL Baso # (Auto) 0.1 (0.0-0.2) X10*3/uL Abs Immat Gran (auto) 0.08 H (0.00-0.03) X10*3/uL Absolute Neuts (auto) 6.5 (2.0-8.3) x10*3/uL Absolute Nucleated RBC 0.000 (0.0-0.012) X10*3/uL Nucleated RBC % (auto) 0.0 (0.0-0.2) /100WBC Sodium 138 (135-145) mmol/L Potassium 4.0 (3.3-5.1) mmol/L Chloride 106 (96-108) mmol/L Carbon Dioxide 20 L (22-29) mmol/L Anion Gap 16 (12-20) BUN 13 (9-16) mg/dL Creatinine 0.89 (0.5-1.4) mg/dL Estim Creat Clear Calc 131.0 Estimated GFR > 60 Random Glucose 147 H (60-115) mg/dL Calcium 8.8 (8.4-10.2) mg/dL Total Bilirubin 0.5 (0.0-1.0) mg/dL AST 23 (5-37) U/L ALT 31 (0-40) U/L Alkaline Phosphatase 72 (39-117) U/L Troponin I High Sens < 3.5 (<3.5-35.0) ng/L Total Protein 6.9 (6.5-8.0) g/dL Albumin 3.9 (3.5-5.0) g/dL Independent Interpretation I performed an independent interpretation of an: EKG Interpretation: Normal sinus rhythm heart rate 94 beats per minute normal interval normal axis no acute ST-T change and no acute ischemia Discharge Plan Discharge Clinical Impression: Chest pain due to GERD Patient Disposition: Home, Self-Care Instructions: Chest Pain (ED), Gastroesophageal Reflux Disease (ED) Additional Instructions: The chest pain is likely from esophageal inflammation Take medication as prescribed follow with PCP Prescriptions: New pantoprazole [Protonix] 40 mg tablet,delayed release (DR/EC) 40 mg PO DAILY Qty: 30 0RF sucralfate 1 gram tablet 1 g PO BID Qty: 60 0RF No Action prednisone 20 mg tablet 40 mg PO DAILY Qty: 10 0RF albuterol sulfate [ProAir HFA] 90 mcg/actuation HFA aerosol inhaler 2 puff inhalation Q4-6H PRN (Reason: Wheezing) Qty: 8.5 0RF prednisone 20 mg tablet 40 mg PO DAILY Qty: 10 0RF albuterol sulfate [ProAir HFA] 90 mcg/actuation HFA aerosol inhaler 2 puff inhalation Q4-6H PRN (Reason: shortness of breath or wheezing) Qty: 8. 5 3RF albuterol sulfate 2.5 mg /3 mL (0.083 %) solution for nebulization 2.5 mg inhalation Q4-6H PRN (Reason: shortness of breath or wheezing) Qty: 90 0RF prednisone 50 mg tablet 50 mg PO DAILY 4 Days Qty: 4 0RF fluticasone propion-salmeterol [Advair Diskus] 500-50 mcg/dose blister with de vice 1 inh inhalation BID Qty: 60 0RF (DME) nebulizer and compressor Device See Rx Instructions .Route Qty: 1 0RF Rx Instructions: As directed albuterol sulfate 90 mcg/actuation HFA aerosol inhaler 2 puff inhalation Q4-6H PRN (Reason: shortness of breath or wheezing) Qty: 8.5 0RF (DME) nebulizers [Aeroneb Go Nebulizer] Misc See Rx Instructions .Route Qty: 1 0RF Rx Instructions: As directed montelukast [Singulair] 10 mg Tablet 10 mg PO DAILY albuterol sulfate 2.5 mg /3 mL (0.083 %) solution for nebulization 2.5 mg inhalation Q4-6H PRN (Reason: shortness of breath or wheezing) Qty: 90 0RF albuterol sulfate 90 mcg/actuation HFA aerosol inhaler 1 inh inhalation QID PRN (Reason: shortness of breath or wheezing) Qty: 8.5 0RF prednisone 20 mg tablet 20 mg PO BID Qty: 10 0RF albuterol sulfate 90 mcg/actuation aerosol powdr breath activated 2 inh inhalation Q4-6H PRN (Reason: shortness of breath or wheezing) Qty: 1 0RF albuterol sulfate 2.5 mg /3 mL (0.083 %) solution for nebulization 2.5 mg inhalation Q6H Qty: 75 0RF prednisone 20 mg tablet 40 mg PO DAILY 5 Days Qty: 10 0RF albuterol sulfate 90 mcg/actuation HFA aerosol inhaler 2 puff inhalation Q4-6H PRN (Reason: shortness of breath or wheezing) Qty: 8.5 1RF prednisone 50 mg tablet 50 mg PO DAILY Qty: 5 0RF
[2022-11-10 02:14] LABS: Basophils Absolute Auto 0.1 X10*3/uL (0.0-0.2); Basophils Percent Auto 1.1 % (0-2); Eosinophils Absolute Auto 0.7 X10*3/uL (0.0-0.4); Eosinophils Percent Auto 5.9 % (0-4); Hematocrit 42.9 % (42.0-52.0); Hemoglobin 14.8 g/dl (14.0-18.0); Imm Gran Abs Auto 0.08 X10*3/uL (0.00-0.03); Imm Gran Pct Auto 0.7 % (0.0-0.4); Lymphocytes Absolute Auto 3.8 X10*3/uL (1.2-4.9); Lymphocytes Percent Auto 31.1 % (20-40); MANUAL DIFF FLAG NO; Mean Corpuscular HGB Conc 34.5 g/dl (31.0-36.0); Mean Corpuscular Hemoglobin 27.6 pg (27.0-33.0); Monocytes Percent Auto 7.8 % (2-11); Neutrophils Absolute Auto 6.5 x10*3/uL (2.0-8.3); Neutrophils Percent Auto 53.4 % (45-73); Platelet Count 345 X10*3/uL (160-400); Red Blood Count 5.36 X10*6/uL (4.60-5.80); Red Cell Distribution Width 11.9 % (11.0-16.0); White Blood Count 12.2 X10*3/uL (4.8-10.8)
[2022-11-10] MEDS: Magnesium Hydrox/Alum Hydrox 30 ML ORAL.SUSP PO (02:31)
[2022-11-10 02:33] LABS: Alanine Aminotransferase 31 U/L (0-40); Albumin Level 3.9 g/dL (3.5-5.0); Alkaline Phosphatase 72 U/L (39-117); Anion Gap 16 (12-20); Aspartate Amino Transferase 23 U/L (5-37); Bilirubin Total 0.5 mg/dL (0.0-1.0); Blood Urea Nitrogen 13 mg/dL (9-16); Calcium 8.8 mg/dL (8.4-10.2); Carbon Dioxide 20 mmol/L (22-29); Chloride 106 mmol/L (96-108); Estimated Glomerular Filt Rate > 60; Glucose Random 147 mg/dL (60-115); Sodium 138 mmol/L (135-145); Total Protein 6.9 g/dL (6.5-8.0)
[2022-11-10 02:34] LABS: Troponin-I High Sensitivity < 3.5 ng/L (<3.5-35.0)
[2022-11-10 03:14] VITALS: BP 141/95; PULSE 89; RESP 17; TEMP 36.6; O2SAT 98
--- NOTE | 2022-11-10 03:25 | PC.NURSE ---
Discharge instructions given/explained no apparent distress ambulates safely/independently able to speak in full sentences, no sob
== END 2022-11-10 03:25 | disposition home or self-care (01) ==
PROVIDERS: Emergency Provider Internal Medicine
DX: R07.89 Other chest pain (principal); K21.9 Gastro-esophageal reflux disease without esophagitis; Z79.899 Other long term (current) drug therapy
CPT/HCPCS: 36415; 80053; 84484; 85025; 93005; 99283; 99285

== ENCOUNTER 2022-11-19 15:41 | Emergency (ER) | payer MEDICAID, SELFPAY ==
--- NOTE | ~2022-11-19 | XR_ITS ---
EXAMINATION: XR CHEST CLINICAL INFORMATION: Wheezing. COMPARISON: Chest radiograph 08/28/2022. TECHNIQUE: Frontal view of the chest was obtained. FINDINGS: Mild diffuse interstitial thickening. No focal infiltrate, pleural effusion or pneumothorax. Normal appearance of the cardiomediastinal silhouette. No acute osseous abnormalities. XR/XR chest 1V IMPRESSION: Mild interstitial thickening which could be seen with asthma, bronchitis, reactive airways disease or atypical viral infections.
[2022-11-19 16:53] VITALS: BP 137/86; PULSE 109; RESP 26; TEMP 37.2; O2SAT 92; BMI 36.6
--- NOTE | 2022-11-19 16:53 | ED.GENADULT ---
HPI - General Adult General Chief complaint: Asthma <CAMDEN Copeland - Last Filed: 11/19/22 17:29> Stated complaint: Asthma <CAMDEN Copeland - Last Filed: 11/19/22 17:29> Time Seen by Provider: 11/19/22 17:23 <CAMDEN Copeland - Last Filed: 11/19/22 17:29> Source: patient <CAMDEN Frazier Last Filed: 11/19/22 18:50> Mode of arrival: ambulatory <CAMDEN Frazier Last Filed: 11/19/22 18:50> Limitations: no limitations <CAMDEN Frazier Last Filed: 11/19/22 18:50> History of Present Illness HPI narrative: 27 yo male with history of severe persistent?asthma with frequent exacerbations history of acute hypoxic respiratory failure secondary to COVID-19 pneumonia in April 2021 who presents to the ER for evaluation of acute onset of wheezing, shortness of breath and asthma symptoms that started about 2 or 3 hours ago. Patient used his inhalers with no relief. He does not have the end piece to with nebulizer machine to his unable to do that. He states his asthma usually acts up with Nurse alternations in temperatures up the weather. He said the cold weather today seem to kick off his asthma. He thinks he may have seasonal allergies, has had recent runny nose, watery eyes and sore throat. No fevers, chills, cough, body aches or muscle aches. No known sick contacts. Patient is known to have frequent asthma attacks requiring ER visits. <CAMDEN Frazier - Last Filed: 11/19/22 18:50> MD complaint: asthma attack <CAMDEN Frazier Last Filed: 11/19/22 18:50> Onset (ago): hour(s) (3) <CAMDEN Frazier Last Filed: 11/19/22 18:50> Location: chest <CAMDEN Frazier Last Filed: 11/19/22 18:50> Radiation: non-radiation <CAMDEN Frazier Last Filed: 11/19/22 18:50> Severity: similar to prior episodes <CAMDEN Frazier Last Filed: 11/19/22 18:50> Pain Consistency: constant <CAMDEN Frazier - Last Filed: 11/19/22 18:50> Relieving factors: rest and other (Albuterol) <CAMDEN Frazier - Last Filed: 11/19/22 18:50> Exacerbating factors: movement <CAMDEN Frazier - Last Filed: 11/19/22 18:50> Associated symptoms: shortness of breath <CAMDEN Frazier - Last Filed: 11/19/22 18:50> Treatments prior to arrival: other (Albuterol inhaler) <CAMDEN Frazier - Last Filed: 11/19/22 18:50> Related Data Home medications: Home Medications Medication Instructions Recorded Confirmed montelukast 10 mg tablet 10 mg PO DAILY 04/24/22 04/24/22 (Singulair) Previous Rx's Medication Instructions Recorded fluticasone 500 mcg-salmeterol 50 1 inh inhalation BID #60 ea 07/02/21 mcg/dose blistr powdr for inhalation (Advair Diskus) nebulizer and compressor #1 ea 09/15/21 albuterol sulfate 90 mcg/actuation 2 puff inhalation Q4-6H PRN 04/18/22 aerosol inhaler shortness of breath or wheezing #8.5 grams nebulizers (Aeroneb Go Nebulizer) #1 ea 04/18/22 albuterol sulfate 90 mcg/actuation 2 puff inhalation Q4-6H PRN 05/14/22 aerosol inhaler (ProAir HFA) Wheezing #8.5 grams prednisone 20 mg tablet 40 mg PO DAILY #10 tabs 05/14/22 albuterol sulfate 2.5 mg/3 mL 2.5 mg (3 mL) inhalation Q4-6H PRN 06/24/22 (0.083 %) solution for nebulization shortness of breath or wheezing #90 mL albuterol sulfate 90 mcg/actuation 2 puff inhalation Q4-6H PRN 06/24/22 aerosol inhaler (ProAir HFA) shortness of breath or wheezing #8.5 grams prednisone 20 mg tablet 40 mg PO DAILY #10 tabs 06/24/22 albuterol sulfate 2.5 mg/3 mL 2.5 mg (3 mL) inhalation Q4-6H PRN 08/11/22 (0.083 %) solution for nebulization shortness of breath or wheezing #90 mL albuterol sulfate 90 mcg/actuation 1 inh inhalation QID PRN shortness 08/11/22 aerosol inhaler of breath or wheezing #8.5 grams prednisone 20 mg tablet 20 mg PO BID #10 tabs 08/11/22 prednisone 50 mg tablet 50 mg PO DAILY 4 days #4 tabs 08/15/22 albuterol sulfate 2.5 mg/3 mL 2.5 mg (3 mL) inhalation Q6H #75 mL 08/28/22 (0.083 %) solution for nebulization albuterol sulfate 90 mcg/actuation 2 inh inhalation Q4-6H PRN 08/28/22 breath activated powder inhaler shortness of breath or wheezing #1 ea prednisone 20 mg tablet 40 mg PO DAILY 5 days #10 tabs 08/28/22 albuterol sulfate 90 mcg/actuation 2 puff inhalation Q4-6H PRN 10/26/22 aerosol inhaler shortness of breath or wheezing #8.5 grams prednisone 50 mg tablet 50 mg PO DAILY #5 tabs 10/26/22 pantoprazole 40 mg tablet,delayed 40 mg PO DAILY #30 tabs 11/10/22 release (Protonix) sucralfate 1 gram tablet 1 g PO BID #60 tabs 11/10/22 albuterol sulfate 5 mg/mL(0.5 %) 5 mg inhalation Q4H PRN shortness 11/19/22 solution for nebulization of breath or wheezing #600 mL prednisone 10 mg tablets in a dose See Taper PO DAILY #48 ea 11/19/22 pack <CAMDEN Copeland - Last Filed: 11/19/22 17:29> Allergies/adverse reactions: Allergies Allergy/AdvReac Type Severity Reaction Status Date / Time shellfish derived Allergy Severe SHORTNESS Verified 11/10/22 01:49 OF BREATH, SWELLING shrimp Allergy Severe ANAPHYLAXIS Verified 11/10/22 01:49 <CAMDEN Copeland - Last Filed: 11/19/22 17:29> Review of Systems Review of Systems: Yes all other systems are reviewed and are negative <CAMDEN Frazier - Last Filed: 11/19/22 18:50> PMFSH Past Medical History Medical History: Medical History Asthma Asthma Pneumonia due to 2019 novel coronavirus <CAMDEN Copeland - Last Filed: 11/19/22 17:29> Family History Family History: Family History Mother Asthma <CAMDEN Copeland - Last Filed: 11/19/22 17:29> Social History Social History: Social History Household Members: None Housing: House Do you presently have visiting nurse or other home services: No Alcohol intake: never Patient Tobacco Use Status: Never used Tobacco Advance Directives: No Advance Directives Information Provided: No service: No Current occupational status: unemployed <CAMDEN Copeland - Last Filed: 11/19/22 17:29> Physical Exam ED Vital Signs: Vital Signs - 24 hr 11/19/22 16:53 11/19/22 17:27 11/19/22 17:29 Temperature 98.9 F Pulse Rate 109 H 118 H 112 H Respiratory Rate 26 H 18 13 Blood Pressure 137/86 134/81 Pulse Oximetry 92 92 Oxygen Delivery Method Room Air Room Air BMI result Body Mass Index 36.6 <CAMDEN Copeland - Last Filed: 11/19/22 17:29> Vital Signs - 24 hr 11/19/22 16:53 11/19/22 17:27 11/19/22 17:29 Temperature 98.9 F Pulse Rate 109 H 118 H 112 H Respiratory Rate 26 H 18 13 Blood Pressure 137/86 134/81 Pulse Oximetry 92 92 Oxygen Delivery Method Room Air Room Air BMI result Body Mass Index 36.6 <CAMDEN Frazier - Last Filed: 11/19/22 18:50> Appearance: Alert. Oriented X3. No acute distress. Head: normocephalic, atraumatic. Eyes: Pupils equal, round and reactive to light. ENT: Pharynx normal. No tonsillar swelling or exudate. Neck: Normal inspection. Neck supple. CVS: Normal heart rate and rhythm. Pulses normal. Respiratory: Mild-moderate respiratory distress. RR mid 20s, Breath sounds with diffuse inspiratory and expiratory wheezes, prolonged expiratory phase. Abdomen: Obese, Soft and nontender. +BS x4 Skin: Skin warm and dry. Normal skin color. Normal skin turgor. No rashes. Extremities: No lower extremity edema. No joint swelling. Neuro/psych: Oriented X 3. No motor deficit. No sensory deficit. CN II-XII intact. Normal speech and cognition. <CAMDEN Frazier - Last Filed: 11/19/22 18:50> Course Course Course Narrative: RME performed by Cynthia Deluca PA-C. Patient is a 27 year old assigned male at presenting to the emergency department with worsening asthma/shortness of breath. Imaging and swabs ordered. Patient placed back in the waiting room pending room availability and results. <CAMDEN Copeland - Last Filed: 11/19/22 17:29> Reevaluation(s) Reevaluation #1: Patient feeling improved after her 1st 10 mg of albuterol were administered, work of breathing has improved. His lung sounds have opened up slightly but he still remains extremely tight and wheezy. Will give another dose of 10 mg albuterol and reassess. Chest x-ray is still pending. He is negative for COVID <CAMDEN Frazier - Last Filed: 11/19/22 18:50> Time: 18:33 <CAMDEN Frazier - Last Filed: 11/19/22 18:50> Medications Administered Discontinued Medications Generic Name Dose Route Start Last Admin Trade Name Freq PRN Reason Stop Dose Admin Albuterol Sulfate 10 mg 11/19/22 16:54 11/19/22 17:29 Albuterol Sulfate (0.083%) 2.5 Mg/3 Ml Vial.Neb INHALE 11/19/22 16:55 10 mg ONCE ONE Administration Albuterol Sulfate 10 mg 11/19/22 18:28 11/19/22 18:37 Albuterol Sulfate (0.083%) 2.5 Mg/3 Ml Vial.Neb INHALE 11/19/22 18:29 10 mg ONCE ONE Administration Methylprednisolone Sodium Succinate 60 mg 11/19/22 16:54 11/19/22 17:52 Methylprednisolone Sod Succ 125 Mg/2 Ml Vial IM 11/19/22 16:55 60 mg ONCE ONE Administration <CAMDEN Copeland - Last Filed: 11/19/22 17:29> Medications Administered Discontinued Medications Generic Name Dose Route Start Last Admin Trade Name Darius PRN Reason Stop Dose Admin Albuterol Sulfate 10 mg 11/19/22 16:54 11/19/22 17:29 Albuterol Sulfate (0.083%) 2.5 Mg/3 Ml Vial.Neb INHALE 11/19/22 16:55 10 mg ONCE ONE Administration Albuterol Sulfate 10 mg 11/19/22 18:28 11/19/22 18:37 Albuterol Sulfate (0.083%) 2.5 Mg/3 Ml Vial.Neb INHALE 11/19/22 18:29 10 mg ONCE ONE Administration Methylprednisolone Sodium Succinate 60 mg 11/19/22 16:54 11/19/22 17:52 Methylprednisolone Sod Succ 125 Mg/2 Ml Vial IM 11/19/22 16:55 60 mg ONCE ONE Administration <CAMDEN Frazier - Last Filed: 11/19/22 18:50> Medical Decision Making Medical Decision Making MDM Narrative: 27-year-old male with a history of poorly controlled asthma, frequent asthma exacerbations requiring ER visits, history of hypoxic respiratory failure due to COVID requiring hospitalization who presents to the ER for evaluation of acute onset of asthma exacerbation. Patient attributes the acute onset of shortness of breath and wheezing to changes in the weather. He states this frequently exacerbates his asthma. No recent sick contacts, no URI symptoms. He does exhibit some seasonal allergy symptoms, has never been tested or treated for such. He arrived to the ER in [id number] respiratory distress with increased work of breathing, diffuse inspiratory and expiratory wheezes throughout. SpO2 92% on room air. When given the albuterol nebulizer his SpO2 increased to 96%. His work of breathing overall improved. He still remains moderately wheezy so another 10 mg of albuterol have been ordered. He is hopeful to be discharged home. Chest x-ray is still pending. Will reassess after 2nd neb has been administered. <CAMDEN Frazier - Last Filed: 11/19/22 18:50> Differential Diagnosis Differential Diagnoses: The differential diagnosis associated with the presentation includes <CAMDEN Frazier Last Filed: 11/19/22 18:50> Acute asthma exacerbation, status asthmaticus, viral syndrome, reactive airway disease, bronchitis, pneumonia <CAMDEN Frazier Last Filed: 11/19/22 18:50> Admission/Observation Consideration of admission/observation: Escalation of care including admission/observation considered <CAMDEN Frazier Last Filed: 11/19/22 18:50> Requiring multiple nebulizations to improve wheezing and work of breathing <CAMDEN Frazier Last Filed: 11/19/22 18:50> Lab Data MDM Lab Attestation statement: I reviewed the patient's lab results. <CAMDEN Frazier Last Filed: 11/19/22 18:50> Labs: Lab Results 11/19/22 Range/Units 17:16 COVID-19 ([facility]) Negative (Negative) COVID-19 Clin Com See Note <CAMDEN Copeland - Last Filed: 11/19/22 17:29> Lab Results 11/19/22 Range/Units 17:16 COVID-19 ([facility]) Negative (Negative) COVID-19 Clin Com See Note <CAMDEN Frazier Last Filed: 11/19/22 18:50> Independent Interpretation I performed an independent interpretation of an: Plain X-Ray <CAMDEN Frazier Last Filed: 11/19/22 18:50> External Record Review External record reviewed: Inpatient record, Outpatient record, Prior outpatient labs and Prior outpatient radiology <CAMDEN Frazier Last Filed: 11/19/22 18:50> Prescription Management I considered prescription management with: Antibiotic <CAMDEN Frazire Last Filed: 11/19/22 18:50> Chronic Conditions Patient?s care impacted by: Other (Asthma) <CAMDEN Frazier Last Filed: 11/19/22 18:50> Critical Care Time Critical Care Time Critical Care Time: Yes <CAMDEN Frazier Last Filed: 11/19/22 18:50> Total Critical Care Time: 38 <CAMDEN Frazier Last Filed: 11/19/22 18:50> Attestation: I have personally provided critical care time exclusive of time spent on separately billable procedures. Time includes review of radiology, frequent bedside reassessment of pulmonary status and monitoring for potential decompensation. Intervention performed as documented. <CAMDEN Frazier Last Filed: 11/19/22 18:50> Discharge Plan Discharge Clinical Impression: Acute asthma exacerbation <CAMDEN Copeland - Last Filed: 11/19/22 17:29> Patient Disposition: Still a Patient <CAMDEN Copeland - Last Filed: 11/19/22 17:29> Instructions: Asthma (DC) <CAMDEN Copeland - Last Filed: 11/19/22 17:29> Additional Instructions: Use your nebulizer every 4 hours until your symptoms are improved. Take the prescribed prednisone taper as directed. Complete the entire course. Follow-up with your primary care doctor next week. Recommend following up with a special education paraeducator for further evaluation of your asthma. There are medications you can be on to prevent recurrence attacks. Call for an appointment on Monday. <CAMDEN Copeland - Last Filed: 11/19/22 17:29> Prescriptions: New albuterol sulfate 5 mg/mL solution for nebulization 5 mg inhalation Q4H PRN (Reason: shortness of breath or wheezing) Qty: 600 0RF prednisone 10 mg tablets,dose pack See Taper PO DAILY Qty: 48 0RF Taper: Prednisone 40 mg daily for 3 Days and 0 Hour 30 mg daily for 3 Days and 0 Hour 20 mg daily for 3 Days and 0 Hour 10 mg daily for 3 Days and 0 Hour No Action prednisone 20 mg tablet 40 mg PO DAILY Qty: 10 0RF albuterol sulfate [ProAir HFA] 90 mcg/actuation HFA aerosol inhaler 2 puff inhalation Q4-6H PRN (Reason: Wheezing) Qty: 8.5 0RF prednisone 20 mg tablet 40 mg PO DAILY Qty: 10 0RF albuterol sulfate [ProAir HFA] 90 mcg/actuation HFA aerosol inhaler 2 puff inhalation Q4-6H PRN (Reason: shortness of breath or wheezing) Qty: 8.5 3RF albuterol sulfate 2.5 mg /3 mL (0.083 %) solution for nebulization 2.5 mg inhalation Q4-6H PRN (Reason: shortness of breath or wheezing) Qty: 90 0RF prednisone 50 mg tablet 50 mg PO DAILY 4 Days Qty: 4 0RF fluticasone propion-salmeterol [Advair Diskus] 500-50 mcg/dose blister with device 1 inh inhalation BID Qty: 60 0RF (DME) nebulizer and compressor Device See Rx Instructions .Route Qty: 1 0RF Rx Instructions: As directed albuterol sulfate 90 mcg/actuation HFA aerosol inhaler 2 puff inhalation Q4-6H PRN (Reason: shortness of breath or wheezing) Qty: 8.5 0RF (DME) nebulizers [Aeroneb Go Nebulizer] [facility] [place] See Rx Instructions .Route Qty: 1 0RF Rx Instructions: As directed montelukast [Singulair] 10 mg Tablet 10 mg PO DAILY albuterol sulfate 2.5 mg /3 mL (0.083 %) solution for nebulization 2.5 mg inhalation Q4-6H PRN (Reason: shortness of breath or wheezing) Qty: 90 0RF albuterol sulfate 90 mcg/actuation HFA aerosol inhaler 1 inh inhalation QID PRN (Reason: shortness of breath or wheezing) Qty: 8.5 0RF prednisone 20 mg tablet 20 mg PO BID Qty: 10 0RF albuterol sulfate 90 mcg/actuation aerosol powdr breath activated 2 inh inhalation Q4-6H PRN (Reason: shortness of breath or wheezing) Qty: 1 0RF albuterol sulfate 2.5 mg /3 mL (0.083 %) solution for nebulization 2.5 mg inhalation Q6H Qty: 75 0RF prednisone 20 mg tablet 40 mg PO DAILY 5 Days Qty: 10 0RF albuterol sulfate 90 mcg/actuation HFA aerosol inhaler 2 puff inhalation Q4-6H PRN (Reason: shortness of breath or wheezing) Qty: 8.5 1RF prednisone 50 mg tablet 50 mg PO DAILY Qty: 5 0RF pantoprazole [Protonix] 40 mg tablet,delayed release (DR/EC) 40 mg PO DAILY Qty: 30 0RF sucralfate 1 gram tablet 1 g PO BID Qty: 60 0RF <CAMDEN Copeland - Last Filed: 11/19/22 17:29> Referrals: [facility] [place] [facility] [Provider Group] (Severe persistent asthma, poorly controlled) <CAMDEN Copeland - Last Filed: 11/19/22 17:29>
[2022-11-19 17:27] VITALS: BP 134/81; PULSE 118; RESP 18; O2SAT 92
[2022-11-19 17:29] VITALS: PULSE 112; RESP 13; O2SAT 96
[2022-11-19] MEDS: Albuterol Sulfate (0.083%) 2.5 MG/3 ML VIAL.NEB 10 MG INHALE ×2 (17:29→18:37)
[2022-11-19 17:44] LABS: COVID-19 Test Negative (Negative); IDNOW Serial# BCCEAD1C
[2022-11-19] MEDS: methylPREDNISolone Sod Succ 125 MG/2 ML VIAL 60 MG IM (17:52)
[2022-11-19 19:31] VITALS: BP 121/81; PULSE 111; RESP 18; TEMP 36.8; O2SAT 97
[2022-11-19 19:48] VITALS: PULSE 120; O2SAT 96
== END 2022-11-19 20:07 | disposition still patient (30) ==
PROVIDERS: Physician Assistant; Emergency Provider Emergency Medicine
DX: J45.901 Unspecified asthma with (acute) exacerbation (principal); Z20.822 Contact with and (suspected) exposure to COVID-19; Z79.899 Other long term (current) drug therapy
CPT/HCPCS: 71045; 87635; 94640; 96372; 99284; J2930

== ENCOUNTER 2022-12-06 23:24 | Emergency (ER) | payer MEDICAID, SELFPAY ==
--- NOTE | ~2022-12-06 | XR_ITS ---
EXAMINATION: XR CHEST CLINICAL INFORMATION: Dyspnea COMPARISON: 11/19/2022 TECHNIQUE: 2 views of the chest were obtained. FINDINGS: The lungs are well expanded. There is no focal consolidation, edema, or effusion. Improvement of prior bronchial wall thickening. No pneumothorax. The cardiomediastinal silhouette is within normal limits. No acute osseous abnormality. XR/XR chest 2V IMPRESSION: Clear lungs. Improvement of prior bronchial wall thickening.
[2022-12-06 23:31] VITALS: BP 148/72; PULSE 106; RESP 20; TEMP 37.2; O2SAT 93; BMI 40.3
[2022-12-07 00:10] LABS: Anion Gap 14 (12-20); Basophils Absolute Auto 0.1 X10*3/uL (0.0-0.2); Basophils Percent Auto 0.7 % (0-2); Blood Urea Nitrogen 10 mg/dL (9-16); Calcium 8.8 mg/dL (8.4-10.2); Carbon Dioxide 20 mmol/L (22-29); Chloride 108 mmol/L (96-108); Creatinine Clr Calc Pharmacy 149.5; Eosinophils Absolute Auto 0.4 X10*3/uL (0.0-0.4); Eosinophils Percent Auto 2.5 % (0-4); Estimated Glomerular Filt Rate > 60; Glucose Random 117 mg/dL (60-115); Hematocrit 42.2 % (42.0-52.0); Hemoglobin 14.5 g/dl (14.0-18.0); Imm Gran Abs Auto 0.09 X10*3/uL (0.00-0.03); Imm Gran Pct Auto 0.6 % (0.0-0.4); Lymphocytes Percent Auto 20.1 % (20-40); MANUAL DIFF FLAG SCAN; Mean Corpuscular HGB Conc 34.4 g/dl (31.0-36.0); Mean Corpuscular Hemoglobin 27.6 pg (27.0-33.0); Mean Corpuscular Volume 80.4 fL (80.0-98.0); Mean Platelet Volume 9.4 fL (9.4-12.4); Monocytes Absolute Auto 1.5 X10*3/uL (0.1-1.2); Monocytes Percent Auto 10.3 % (2-11); Neutrophils Absolute Auto 9.8 x10*3/uL (2.0-8.3); Neutrophils Percent Auto 65.8 % (45-73); Platelet Count 353 X10*3/uL (160-400); Potassium 3.8 mmol/L (3.3-5.1); Red Blood Count 5.25 X10*6/uL (4.60-5.80); SCAN SMEAR FLAG 1; Sodium 138 mmol/L (135-145)
[2022-12-07 00:13] VITALS: BP 148/89; PULSE 96; RESP 22; O2SAT 93
[2022-12-07 00:17] LABS: Troponin-I High Sensitivity < 2.7 ng/L (<3.5-35.0)
[2022-12-07 00:50] VITALS: PULSE 90; RESP 18; O2SAT 94
[2022-12-07 01:07] LABS: SLIDE REVIEW VERIFIED
--- NOTE | 2022-12-07 01:12 | ED_ITS ---
HPI - Asthma General Chief Complaint: Asthma Stated Complaint: Diff breathing Time Seen by Provider: 12/06/22 23:48 History of Present Illness HPI Narrative: Patient is a 27-year-old male presents today with having coughing congestion upper respiratory symptoms generalized malaise wheezing ongoing for the last day or 2. Patient has been admitted for asthma a few years ago. Denies any recreational drugs denies any alcohol denies any smoking patient from home. Related Data Home Medications Medication Instructions Recorded Confirmed montelukast 10 mg tablet 10 mg PO DAILY 04/24/22 04/24/22 (Singulair) Previous Rx's Medication Instructions Recorded fluticasone 500 mcg-salmeterol 50 1 inh inhalation BID #60 ea 07/02/21 mcg/dose blistr powdr for inhalation (Advair Diskus) nebulizer and compressor #1 ea 09/15/21 albuterol sulfate 90 mcg/actuation 2 puff inhalation Q4-6H PRN 04/18/22 aerosol inhaler shortness of breath or wheezing #8.5 grams nebulizers (Aeroneb Go Nebulizer) #1 ea 04/18/22 albuterol sulfate 90 mcg/actuation 2 puff inhalation Q4-6H PRN 05/14/22 aerosol inhaler (ProAir HFA) Wheezing #8.5 grams prednisone 20 mg tablet 40 mg PO DAILY #10 tabs 05/14/22 albuterol sulfate 2.5 mg/3 mL 2.5 mg (3 mL) inhalation Q4-6H PRN 06/24/22 (0.083 %) solution for nebulization shortness of breath or wheezing #90 mL albuterol sulfate 90 mcg/actuation 2 puff inhalation Q4-6H PRN 06/24/22 aerosol inhaler (ProAir HFA) shortness of breath or wheezing #8.5 grams prednisone 20 mg tablet 40 mg PO DAILY #10 tabs 06/24/22 albuterol sulfate 2.5 mg/3 mL 2.5 mg (3 mL) inhalation Q4-6H PRN 08/11/22 (0.083 %) solution for nebulization shortness of breath or wheezing #90 mL albuterol sulfate 90 mcg/actuation 1 inh inhalation QID PRN shortness 08/11/22 aerosol inhaler of breath or wheezing #8.5 grams prednisone 20 mg tablet 20 mg PO BID #10 tabs 08/11/22 prednisone 50 mg tablet 50 mg PO DAILY 4 days #4 tabs 08/15/22 albuterol sulfate 2.5 mg/3 mL 2.5 mg (3 mL) inhalation Q6H #75 mL 08/28/22 (0.083 %) solution for nebulization albuterol sulfate 90 mcg/actuation 2 inh inhalation Q4-6H PRN 08/28/22 breath activated powder inhaler shortness of breath or wheezing #1 ea prednisone 20 mg tablet 40 mg PO DAILY 5 days #10 tabs 08/28/22 albuterol sulfate 90 mcg/actuation 2 puff inhalation Q4-6H PRN 10/26/22 aerosol inhaler shortness of breath or wheezing #8.5 grams prednisone 50 mg tablet 50 mg PO DAILY #5 tabs 10/26/22 pantoprazole 40 mg tablet,delayed 40 mg PO DAILY #30 tabs 11/10/22 release (Protonix) sucralfate 1 gram tablet 1 g PO BID #60 tabs 11/10/22 albuterol sulfate 5 mg/mL(0.5 %) 5 mg inhalation Q4H PRN shortness 11/19/22 solution for nebulization of breath or wheezing #600 mL albuterol sulfate 90 mcg/actuation 1 inh inhalation QID PRN shortness 11/19/22 aerosol inhaler (Ventolin HFA) of breath or wheezing #8.5 grams prednisone 10 mg tablets in a dose See Taper PO DAILY #48 ea 11/19/22 pack albuterol sulfate 2.5 mg/3 mL 2.5 mg (3 mL) inhalation Q6H PRN 12/07/22 (0.083 %) solution for nebulization shortness of breath or wheezing #90 mL albuterol sulfate 90 mcg/actuation 2 inh inhalation Q6H PRN sob #1 ea 12/07/22 breath activated powder inhaler prednisone 20 mg tablet 40 mg PO DAILY 5 days #10 tabs 12/07/22 Allergies Allergy/AdvReac Type Severity Reaction Status Date / Time shellfish derived Allergy Severe SHORTNESS Verified 11/10/22 01:49 OF BREATH, SWELLING shrimp Allergy Severe ANAPHYLAXIS Verified 11/10/22 01:49 Review of Systems Review of Systems: Positive coughing congestion upper respiratory symptoms. Positive shortness of breath Yes all other systems are reviewed and are negative PMFSH Past Medical History Attestation statement: The following information was validated with the patient. Medical History Asthma Asthma Pneumonia due to 2019 novel coronavirus Family History Family History Mother Asthma Social History Social History Household Members: None Housing: House Do you presently have visiting nurse or other home services: No Alcohol intake: never Patient Tobacco Use Status: Never used Tobacco Smoked in Last 30 Days: No Advance Directives: No Advance Directives Information Provided: Yes service: No Current occupational status: unemployed Physical Exam Vital Signs: Vital Signs: Last Vital Signs Temp 98.9 F 12/06/22 23:31 Pulse 110 H 12/07/22 02:35 Resp 20 12/07/22 02:35 BP 134/89 12/07/22 02:35 Pulse Ox 94 12/07/22 00:50 O2 Del Method Room Air 12/07/22 02:35 BMI result Body Mass Index 40.3 Appearance: Alert. Oriented X3. No acute distress. Eyes: Pupils equal, round and reactive to light. ENT: Pharynx normal. Neck: Normal inspection. Neck supple. No lymph nodes noted. No crepitus CVS: Normal heart rate and rhythm. Pulses normal. Normal S1 and S2 Respiratory: Positive expiratory wheezing noted positive diminished breath sounds noted Abdomen: Soft and nontender. No rigidity. No distention. good BS x4 Skin: Skin warm and dry. Normal skin color. Normal skin turgor. Extremities: No lower extremity edema. Neurovascular intact to all extremities. No Lacerations. No Rash Neuro: Oriented X 3. No motor deficit. No sensory deficit. Moving all extermities. No slurred speech Medications Administered Discontinued Medications Generic Name Dose Route Start Last Admin Trade Name Freq PRN Reason Stop Dose Admin Albuterol Sulfate 7.5 mg 12/07/22 01:11 12/07/22 01:24 Albuterol Sulfate (0.083%) 2.5 Mg/3 Ml Vial.Neb INHALE 12/07/22 01:12 7.5 mg ONCE ONE Administration Prednisone 60 mg 12/07/22 01:11 12/07/22 01:21 Prednisone 20 Mg Tablet PO 12/07/22 01:12 60 mg ONCE ONE Administration Medical Decision Making Medical Decision Making [facility] Narrative: Positive shortness of breath wheezing, history of asthma. Patient given steroid a continuous neb with good symptomatic results. Lungs improved. Patient fell sleep. Chest x-ray by my interpretation was grossly negative for any acute evidence of pneumonia pneumothorax no rib fracture. Patient's O2 sat is now 98% on room air. Will give additional steroid will discharge patient home. Patient's flu COVID RSV were all negative Differential Diagnosis Differential Diagnoses: The differential diagnosis associated with the presentation includes Viral infection, asthma exacerbation, pneumonia, pneumothorax Lab Data [facility] Lab Attestation statement: I reviewed the patient's lab results. 12/06/22 23:48 12/06/22 23:48 Labs: Lab Results 12/06/22 12/06/22 12/06/22 Range/Units 23:48 23:48 23:48 WBC 15.0 H (4.8-10.8) X10*3/uL RBC 5.25 (4.60-5.80) X10*6/uL Hgb 14.5 (14.0-18.0) g/dl Hct 42.2 (42.0-52.0) % MCV 80.4 (80.0-98.0) fL MCH 27.6 (27.0-33.0) pg MCHC 34.4 (31.0-36.0) g/dl RDW 12.0 (11.0-16.0) % Plt Count 353 (160-400) X10*3/uL MPV 9.4 (9.4-12.4) fL Immature Gran % (Auto) 0.6 H (0.0-0.4) % Neut % (Auto) 65.8 (45-73) % Lymph % (Auto) 20.1 (20-40) % Kimble % (Auto) 10.3 (2-11) % Eos % (Auto) 2.5 (0-4) % Baso % (Auto) 0.7 (0-2) % Lymph # (Auto) 3.0 (1.2-4.9) X10*3/uL Kimble # (Auto) 1.5 H (0.1-1.2) X10*3/uL Eos # (Auto) 0.4 (0.0-0.4) X10*3/uL Baso # (Auto) 0.1 (0.0-0.2) X10*3/uL Abs Immat Gran (auto) 0.09 H (0.00-0.03) X10*3/uL Absolute Neuts (auto) 9.8 H (2.0-8.3) x10*3/uL Absolute Nucleated RBC 0.000 (0.0-0.012) X10*3/uL Nucleated RBC % (auto) 0.0 (0.0-0.2) /100WBC Smear Tech's Comments VERIFIED Sodium 138 (135-145) mmol/L Potassium 3.8 (3.3-5.1) mmol/L Chloride 108 (96-108) mmol/L Carbon Dioxide 20 L (22-29) mmol/L Anion Gap 14 (12-20) BUN 10 (9-16) mg/dL Creatinine 0.87 (0.5-1.4) mg/dL Estim Creat Clear Calc 149.5 Estimated GFR > 60 Random Glucose 117 H (60-115) mg/dL Calcium 8.8 (8.4-10.2) mg/dL Troponin I High Sens < 2.7 (<3.5-35.0) ng/L Influenza Type A (PCR) (Negative) Influenza Type B (PCR) (Negative) RSV RNA Qual (PCR) (Negative) SARS-CoV-2 RNA (RT-PCR) (Negative) 12/07/22 Range/Units 01:17 WBC (4.8-10.8) X10*3/uL RBC (4.60-5.80) X10*6/uL Hgb (14.0-18.0) g/dl Hct (42.0-52.0) % MCV (80.0-98.0) fL MCH (27.0-33.0) pg MCHC (31.0-36.0) g/dl RDW (11.0-16.0) % Plt Count (160-400) X10*3/uL MPV (9.4-12.4) fL Immature Gran % (Auto) (0.0-0.4) % Neut % (Auto) (45-73) % Lymph % (Auto) (20-40) % Kimble % (Auto) (2-11) % Eos % (Auto) (0-4) % Baso % (Auto) (0-2) % Lymph # (Auto) (1.2-4.9) X10*3/uL Kimble # (Auto) (0.1-1.2) X10*3/uL Eos # (Auto) (0.0-0.4) X10*3/uL Baso # (Auto) (0.0-0.2) X10*3/uL Abs Immat Gran (auto) (0.00-0.03) X10*3/uL Absolute Neuts (auto) (2.0-8.3) x10*3/uL Absolute Nucleated RBC (0.0-0.012) X10*3/uL Nucleated RBC % (auto) (0.0-0.2) /100WBC Smear Tech's Comments Sodium (135-145) mmol/L Potassium (3.3-5.1) mmol/L Chloride (96-108) mmol/L Carbon Dioxide (22-29) mmol/L Anion Gap (12-20) BUN (9-16) mg/dL Creatinine (0.5-1.4) mg/dL Estim Creat Clear Calc Estimated GFR Random Glucose (60-115) mg/dL Calcium (8.4-10.2) mg/dL Troponin I High Sens (<3.5-35.0) ng/L Influenza Type A (PCR) NEGATIVE (Negative) Influenza Type B (PCR) NEGATIVE (Negative) RSV RNA Qual (PCR) NEGATIVE (Negative) SARS-CoV-2 RNA (RT-PCR) NEGATIVE (Negative) Radiology Impression Discussion of test interpretation with radiology: I have reviewed the radiologist's reading. Discharge Plan Discharge Clinical Impression: Asthma Patient Disposition: Home, Self-Care Instructions: Asthma (ED) Prescriptions: New prednisone 20 mg tablet 40 mg PO DAILY 5 Days Qty: 10 0RF albuterol sulfate 90 mcg/actuation aerosol powdr breath activated 2 inh inhalation Q6H PRN (Reason: sob) Qty: 1 0RF albuterol sulfate 2.5 mg /3 mL (0.083 %) solution for nebulization 2.5 mg inhalation Q6H PRN (Reason: shortness of breath or wheezing) Qty: 90 0RF No Action prednisone 20 mg tablet 40 mg PO DAILY Qty: 10 0RF albuterol sulfate [ProAir HFA] 90 mcg/actuation HFA aerosol inhaler 2 puff inhalation Q4-6H PRN (Reason: Wheezing) Qty: 8.5 0RF prednisone 20 mg tablet 40 mg PO DAILY Qty: 10 0RF albuterol sulfate [ProAir HFA] 90 mcg/actuation HFA aerosol inhaler 2 puff inhalation Q4-6H PRN (Reason: shortness of breath or wheezing) Qty: 8.5 3RF albuterol sulfate 2.5 mg /3 mL (0.083 %) solution for nebulization 2.5 mg inhalation Q4-6H PRN (Reason: shortness of breath or wheezing) Qty: 90 0RF prednisone 50 mg tablet 50 mg PO DAILY 4 Days Qty: 4 0RF fluticasone propion-salmeterol [Advair Diskus] 500-50 mcg/dose blister with device 1 inh inhalation BID Qty: 60 0RF (DME) nebulizer and compressor Device See Rx Instructions .Route Qty: 1 0RF Rx Instructions: As directed albuterol sulfate 90 mcg/actuation HFA aerosol inhaler 2 puff inhalation Q4-6H PRN (Reason: shortness of breath or wheezing) Qty: 8.5 0RF (DME) nebulizers [Aeroneb Go Nebulizer] Misc See Rx Instructions .Route Qty: 1 0RF Rx Instructions: As directed montelukast [Singulair] 10 mg Tablet 10 mg PO DAILY albuterol sulfate 2.5 mg /3 mL (0.083 %) solution for nebulization 2.5 mg inhalation Q4-6H PRN (Reason: shortness of breath or wheezing) Qty: 90 0RF albuterol sulfate 90 mcg/actuation HFA aerosol inhaler 1 inh inhalation QID PRN (Reason: shortness of breath or wheezing) Qty: 8.5 0RF prednisone 20 mg tablet 20 mg PO BID Qty: 10 0RF albuterol sulfate 90 mcg/actuation aerosol powdr breath activated 2 inh inhalation Q4-6H PRN (Reason: shortness of breath or wheezing) Qty: 1 0RF albuterol sulfate 2.5 mg /3 mL (0.083 %) solution for nebulization 2.5 mg inhalation Q6H Qty: 75 0RF prednisone 20 mg tablet 40 mg PO DAILY 5 Days Qty: 10 0RF albuterol sulfate 90 mcg/actuation HFA aerosol inhaler 2 puff inhalation Q4-6H PRN (Reason: shortness of breath or wheezing) Qty: 8.5 1RF prednisone 50 mg tablet 50 mg PO DAILY Qty: 5 0RF pantoprazole [Protonix] 40 mg tablet,delayed release (DR/EC) 40 mg PO DAILY Qty: 30 0RF sucralfate 1 gram tablet 1 g PO BID Qty: 60 0RF albuterol sulfate 5 mg/mL solution for nebulization 5 mg inhalation Q4H PRN (Reason: shortness of breath or wheezing) Qty: 600 0RF prednisone 10 mg tablets,dose pack See Taper PO DAILY Qty: 48 0RF Taper: Prednisone 40 mg daily for 3 Days and 0 Hour 30 mg daily for 3 Days and 0 Hour 20 mg daily for 3 Days and 0 Hour 10 mg daily for 3 Days and 0 Hour albuterol sulfate [Ventolin HFA] 90 mcg/actuation HFA aerosol inhaler 1 inh inhalation QID PRN (Reason: shortness of breath or wheezing) Qty: 8.5 0RF Referrals: Physician,Vernon J [Primary Care Provider] - 12/09/22
[2022-12-07] MEDS: predniSONE 20 MG TABLET 60 MG PO (01:21)
[2022-12-07 01:24] VITALS: PULSE 96; RESP 16; O2SAT 98
[2022-12-07] MEDS: Albuterol Sulfate (0.083%) 2.5 MG/3 ML VIAL.NEB 7.5 MG INHALE (01:24)
[2022-12-07 01:59] LABS: Influenza A PCR NEGATIVE (Negative); Influenza B PCR NEGATIVE (Negative); Resp Syncy Virus RNA Qual PCR NEGATIVE (Negative); SARS COV2 PCR INHOUSE NEGATIVE (Negative)
[2022-12-07 02:35] VITALS: BP 134/89; PULSE 110; RESP 20
== END 2022-12-07 03:09 | disposition home or self-care (01) ==
PROVIDERS: Emergency Provider Emergency Medicine Emergency Medical Services
DX: R06.02 Shortness of breath (principal); Z20.822 Contact with and (suspected) exposure to COVID-19; Z20.828 Contact with and (suspected) exposure to other viral communicable diseases; Z79.899 Other long term (current) drug therapy
CPT/HCPCS: 0241U; 36415; 71046; 80048; 84484; 85025; 94640; 99284

== ENCOUNTER 2022-12-14 02:15 | Emergency (ER) | payer MEDICAID, SELFPAY ==
[2022-12-14 02:50] VITALS: BP 133/78; PULSE 88; RESP 16; TEMP 36.5; O2SAT 93; BMI 36.6
== END 2022-12-14 06:40 | disposition left against medical advice (07) ==
PROVIDERS: Emergency Provider Emergency Medicine
DX: M25.511 Pain in right shoulder (principal); M54.2 Cervicalgia
CPT/HCPCS: 99281

== ENCOUNTER 2022-12-18 03:46 | Emergency (ER) | payer MEDICAID, SELFPAY ==
--- NOTE | ~2022-12-18 | XR_ITS ---
EXAMINATION: XR CHEST CLINICAL INFORMATION: Shortness of breath, rule out pneumonia COMPARISON: 12/06/2022 TECHNIQUE: Frontal view of the chest was obtained. FINDINGS: The lungs are clear with no focal consolidation. No evidence of pneumothorax, pulmonary edema, or pleural effusions. The cardiomediastinal silhouette is unremarkable. No acute osseous findings. XR/XR chest 1V IMPRESSION: No acute cardiopulmonary findings.
[2022-12-18 03:54] VITALS: BP 134/90; PULSE 102; RESP 19; TEMP 36.6; O2SAT 91; BMI 36.6
[2022-12-18 04:12] VITALS: BP 130/84; PULSE 100; RESP 13; TEMP 36.8; O2SAT 91
[2022-12-18] MEDS: Albuterol Sulfate (0.083%) 2.5 MG/3 ML VIAL.NEB 7.5 MG INHALE (04:41)
[2022-12-18 04:42] VITALS: PULSE 92; RESP 14; O2SAT 98
[2022-12-18 04:47] LABS: MANUAL DIFF FLAG NO
[2022-12-18 04:48] LABS: Basophils Absolute Auto 0.2 X10*3/uL (0.0-0.2); Basophils Percent Auto 1.2 % (0-2); Eosinophils Absolute Auto 1.3 X10*3/uL (0.0-0.4); Eosinophils Percent Auto 9.7 % (0-4); Hematocrit 42.6 % (42.0-52.0); Hemoglobin 14.7 g/dl (14.0-18.0); Imm Gran Abs Auto 0.07 X10*3/uL (0.00-0.03); Imm Gran Pct Auto 0.5 % (0.0-0.4); Lymphocytes Percent Auto 22.4 % (20-40); Mean Corpuscular HGB Conc 34.5 g/dl (31.0-36.0); Mean Corpuscular Hemoglobin 27.4 pg (27.0-33.0); Mean Corpuscular Volume 79.5 fL (80.0-98.0); Mean Platelet Volume 9.4 fL (9.4-12.4); Monocytes Absolute Auto 1.1 X10*3/uL (0.1-1.2); Monocytes Percent Auto 8.4 % (2-11); Neutrophils Absolute Auto 7.8 x10*3/uL (2.0-8.3); Neutrophils Percent Auto 57.8 % (45-73); Platelet Count 353 X10*3/uL (160-400); Red Blood Count 5.36 X10*6/uL (4.60-5.80); Red Cell Distribution Width 11.9 % (11.0-16.0); White Blood Count 13.4 X10*3/uL (4.8-10.8)
[2022-12-18] MEDS: methylPREDNISolone Sod Succ 125 MG/2 ML VIAL IVPUSH (04:48)
--- NOTE | 2022-12-18 04:51 | PC.NURSE ---
Pt A&Ox4, reports increase SOB x 2 days, Pt working to breath Sat o2 91% on RA, RR 24, lung sounds wheezy throughout. Dr. Zuniga notified, new orders given, respiratory therapist notified. IV line placed, blood work collected and sent to lab.
[2022-12-18 04:55] LABS: Prothrombin Time 11.8 SEC (10.0-13.1)
[2022-12-18 04:58] LABS: Partial Thromboplastin Time 30.6 SEC (26.0-36.4)
[2022-12-18 05:04] LABS: Lactic Acid 1.1 mmol/L (0.5-2.0)
[2022-12-18 05:11] LABS: Alanine Aminotransferase 33 U/L (0-40); Albumin Level 4.1 g/dL (3.5-5.0); Alkaline Phosphatase 81 U/L (39-117); Anion Gap 11 (12-20); Aspartate Amino Transferase 27 U/L (5-37); Bilirubin Total 0.4 mg/dL (0.0-1.0); Blood Urea Nitrogen 11 mg/dL (9-16); Calcium 9.1 mg/dL (8.4-10.2); Carbon Dioxide 25 mmol/L (22-29); Chloride 105 mmol/L (96-108); Creatinine Clr Calc Pharmacy 147.5; Estimated Glomerular Filt Rate > 60; Glucose Random 110 mg/dL (60-115); Lipase 25 U/L (8-78); Potassium 3.9 mmol/L (3.3-5.1); Sodium 137 mmol/L (135-145); Total Protein 7.3 g/dL (6.5-8.0)
[2022-12-18 05:46] VITALS: BP 115/60; PULSE 98; RESP 20; TEMP 37.2; O2SAT 94
[2022-12-18 06:15] LABS: COVID-19 Test Negative (Negative); IDNOW Serial# 08D9AD1C; IDNOW Serial# BCCEAD1C; Influenza A Negative (Negative); Influenza B2 Negative (Negative)
--- NOTE | 2022-12-18 06:37 | ED_ITS ---
HPI - Asthma General Chief Complaint: Asthma Stated Complaint: Asthma Time Seen by Provider: 12/18/22 04:21 Source: patient Mode of arrival: ambulatory Limitations: no limitations History of Present Illness HPI Narrative: 27-year-old male who presents emergency department for evaluation of asthma exacerbation. Patient states that last 2 days he has had a flare-up of his asthma. He has been using his albuterol inhaler frequently without any relief his symptoms. He states that he is having chest pain any points to the center of his chest. The pain is a sharp pain which is worse with breathing worse with movement. The patient states that his breathing got severe, uses inhaler without any relief so came to the emergency department for evaluation. Related Data Home Medications Medication Instructions Recorded Confirmed montelukast 10 mg tablet 10 mg PO DAILY 04/24/22 04/24/22 (Singulair) Previous Rx's Medication Instructions Recorded fluticasone 500 mcg-salmeterol 50 1 inh inhalation BID #60 ea 07/02/21 mcg/dose blistr powdr for inhalation (Advair Diskus) nebulizer and compressor #1 ea 09/15/21 albuterol sulfate 90 mcg/actuation 2 puff inhalation Q4-6H PRN 04/18/22 aerosol inhaler shortness of breath or wheezing #8.5 grams nebulizers (Aeroneb Go Nebulizer) #1 ea 04/18/22 albuterol sulfate 90 mcg/actuation 2 puff inhalation Q4-6H PRN 05/14/22 aerosol inhaler (ProAir HFA) Wheezing #8.5 grams prednisone 20 mg tablet 40 mg PO DAILY #10 tabs 05/14/22 albuterol sulfate 2.5 mg/3 mL 2.5 mg (3 mL) inhalation Q4-6H PRN 06/24/22 (0.083 %) solution for nebulization shortness of breath or wheezing #90 mL albuterol sulfate 90 mcg/actuation 2 puff inhalation Q4-6H PRN 06/24/22 aerosol inhaler (ProAir HFA) shortness of breath or wheezing #8.5 grams prednisone 20 mg tablet 40 mg PO DAILY #10 tabs 06/24/22 albuterol sulfate 2.5 mg/3 mL 2.5 mg (3 mL) inhalation Q4-6H PRN 08/11/22 (0.083 %) solution for nebulization shortness of breath or wheezing #90 mL albuterol sulfate 90 mcg/actuation 1 inh inhalation QID PRN shortness 08/11/22 aerosol inhaler of breath or wheezing #8.5 grams prednisone 20 mg tablet 20 mg PO BID #10 tabs 08/11/22 prednisone 50 mg tablet 50 mg PO DAILY 4 days #4 tabs 08/15/22 albuterol sulfate 2.5 mg/3 mL 2.5 mg (3 mL) inhalation Q6H #75 mL 08/28/22 (0.083 %) solution for nebulization albuterol sulfate 90 mcg/actuation 2 inh inhalation Q4-6H PRN 08/28/22 breath activated powder inhaler shortness of breath or wheezing #1 ea prednisone 20 mg tablet 40 mg PO DAILY 5 days #10 tabs 08/28/22 albuterol sulfate 90 mcg/actuation 2 puff inhalation Q4-6H PRN 10/26/22 aerosol inhaler shortness of breath or wheezing #8.5 grams prednisone 50 mg tablet 50 mg PO DAILY #5 tabs 10/26/22 pantoprazole 40 mg tablet,delayed 40 mg PO DAILY #30 tabs 11/10/22 release (Protonix) sucralfate 1 gram tablet 1 g PO BID #60 tabs 11/10/22 albuterol sulfate 5 mg/mL(0.5 %) 5 mg inhalation Q4H PRN shortness 11/19/22 solution for nebulization of breath or wheezing #600 mL albuterol sulfate 90 mcg/actuation 1 inh inhalation QID PRN shortness 11/19/22 aerosol inhaler (Ventolin HFA) of breath or wheezing #8.5 grams prednisone 10 mg tablets in a dose See Taper PO DAILY #48 ea 11/19/22 pack albuterol sulfate 2.5 mg/3 mL 2.5 mg (3 mL) inhalation Q6H PRN 12/07/22 (0.083 %) solution for nebulization shortness of breath or wheezing #90 mL albuterol sulfate 90 mcg/actuation 2 inh inhalation Q6H PRN sob #1 ea 12/07/22 breath activated powder inhaler prednisone 20 mg tablet 40 mg PO DAILY 5 days #10 tabs 12/07/22 acetaminophen 500 mg tablet 1,000 mg PO Q6H PRN fever or pain 12/18/22 (Tylenol Extra Strength) #20 tabs cyclobenzaprine 10 mg tablet 10 mg PO TID PRN pain, muscle 12/18/22 spasm #15 tabs prednisone 20 mg tablet 60 mg PO DAILY 5 days #15 tabs 12/18/22 Allergies Allergy/AdvReac Type Severity Reaction Status Date / Time shellfish derived Allergy Severe SHORTNESS Verified 11/10/22 01:49 OF BREATH, SWELLING shrimp Allergy Severe ANAPHYLAXIS Verified 11/10/22 01:49 Review of Systems Review of Systems: Yes all other systems are reviewed and are negative [facility] Past Medical History Medical History Asthma Asthma Pneumonia due to 2019 novel coronavirus Family History Family History Mother Asthma Social History Social History Household Members: None Housing: House Do you presently have visiting nurse or other home services: No Alcohol intake: never Patient Tobacco Use Status: Never used Tobacco Advance Directives: No Advance Directives Information Provided: Yes service: No Current occupational status: unemployed Physical Exam Vital Signs: Vital Signs: Last Vital Signs Temp 98.9 F 12/18/22 05:46 Pulse 98 12/18/22 05:46 Resp 20 12/18/22 05:46 BP 115/60 12/18/22 05:46 Pulse Ox 94 12/18/22 05:46 O2 Del Method Nasal Cannula 12/18/22 05:46 O2 Flow Rate 3 12/18/22 05:46 BMI result Body Mass Index 36.6 Const: Other: Awake, alert, male patient, having difficulty speaking secondary to his asthma exacerbation, using accessory muscles to breathe, he is diaphoretic. HEENT: Head: Yes normal to inspection, Yes normocephalic and Yes atraumatic Ears: external ears normal General nose exam: Normal external nose present Face and sinus: Yes normal facial exam Mouth: Normal oral and palatal mucosa present Throat: Yes posterior oropharynx normal Eyes: General: appearance normal, both eyes and all related structures Pupils: Equal, round and reactive pupils present Neck: Neck: Yes normal visual inspection, Yes no lymphadenopathy, Yes trachea midline and Yes supple Chest: Chest palpation & inspection: normal inspection of the chest and normal palpation of entire chest wall Resp: Other: Patient has dyspnea, using accessory muscles to breathe, diaphoretic, lungs revealed diffuse wheezing, poor expiratory out flow, no rhonchi or rales Cardio: Rate: regular rate Rhythm: regular rhythm Heart sounds: S1 normal heart sound present, S2 normal heart sound present and no murmurs GI: Inspection: Yes normal to inspection Palpation (GI): Soft to palpation, nontender and no guarding Auscultation: normal bowel sounds : General: Yes no CVA tenderness Back/Spine/Pelvis: Back: no CVA tenderness Skin: General skin exam: no rashes or lesions noted Neuro: Cranial nerves: Yes CN's II-XII intact bilaterally and Yes Equal, round and reactive pupils present Cognition (Neuro): normal cognition Motor exam (neuro): 5/5 motor strength present throughout Extrem: General: Yes normal to inspection Psych: Appearance: grossly normal Speech and movement: Normal speech and movement present Affect: normal affect Attitude: cooperative Thought process: Normal thought process present Thought content: Normal thought content present Medications Administered Discontinued Medications Generic Name Dose Route Start Last Admin Trade Name Freq PRN Reason Stop Dose Admin Albuterol Sulfate 7.5 mg 12/18/22 04:22 12/18/22 04:41 Albuterol Sulfate (0.083%) 2.5 Mg/3 Ml Vial.Neb INHALE 12/18/22 04:23 7.5 mg ONCE ONE Administration Methylprednisolone Sodium Succinate 125 mg 12/18/22 04:22 12/18/22 04:48 Methylprednisolone Sod Succ 125 Mg/2 Ml Vial IVPUSH 12/18/22 04:23 125 mg ONCE ONE Administration Methylprednisolone Sodium Succinate 125 mg 12/18/22 04:22 12/18/22 04:50 Methylprednisolone Sod Succ 125 Mg/2 Ml Vial IVPUSH 12/18/22 04:23 Not Given ONCE ONE Medical Decision Making Medical Decision Making MDM Narrative: 27-year-old male with history of asthma who presents emergency department for evaluation of 2 days of asthma exacerbation. He has been using his inhaler frequently with no relief of his symptoms. Physical examination did reveal diffuse wheezing with poor expiratory flow, he appeared dyspneic and d iaphoretic. I ordered a laboratory evaluation to include CBC, CMP, COVID-19, influenza and chest x-ray. Patient was ordered to get albuterol 7.5 mg via nebulizer and Solu-Medrol 125 mg IV. 0651: My interpretation patient's laboratory evaluation as follows: WBC elevated 13,400. CMP was normal. COVID-19 was negative. Influenza was negative. Chest x-ray revealed no acute disease on my interpretation Patient is feeling significantly better after the above treatment. Patient was discharged home with a prescription for prednisone 60 mg 4 times a day for 5 days. Patient also is complaining of neck pain and spasm he was prescribed Flexeril 10 mg 3 times a day as needed for pain or spasm. He was given printed and verbal instructions discharged home. Differential Diagnosis Differential diagnosis includes was not limited to pneumonia, bronchitis, asthma exacerbation, pneumothorax Lab Data [facility] Lab Attestation statement: I reviewed the patient's lab results. See [facility] 12/18/22 04:35 12/18/22 04:35 Labs: Lab Results 12/18/22 12/18/22 12/18/22 Range/Units 04:35 04:35 04:35 WBC 13.4 H (4.8-10.8) X10*3/uL RBC 5.36 (4.60-5.80) X10*6/uL Hgb 14.7 (14.0-18.0) g/dl Hct 42.6 (42.0-52.0) % MCV 79.5 L (80.0-98.0) fL MCH 27.4 (27.0-33.0) pg MCHC 34.5 (31.0-36.0) g/dl RDW 11.9 (11.0-16.0) % Plt Count 353 (160-400) X10*3/uL MPV 9.4 (9.4-12.4) fL Immature Gran % (Auto) 0.5 H (0.0-0.4) % Neut % (Auto) 57.8 (45-73) % Lymph % (Auto) 22.4 (20-40) % [place] % (Auto) 8.4 (2-11) % Eos % (Auto) 9.7 H (0-4) % Baso % (Auto) 1.2 (0-2) % Lymph # (Auto) 3.0 (1.2-4.9) X10*3/uL [place] # (Auto) 1.1 (0.1-1.2) X10*3/uL Eos # (Auto) 1.3 H (0.0-0.4) X10*3/uL Baso # (Auto) 0.2 (0.0-0.2) X10*3/uL Abs Immat Gran (auto) 0.07 H (0.00-0.03) X10*3/uL Absolute Neuts (auto) 7.8 (2.0-8.3) x10*3/uL Absolute Nucleated RBC 0.000 (0.0-0.012) X10*3/uL Nucleated RBC % (auto) 0.0 (0.0-0.2) /100WBC PT 11.8 (10.0-13.1) SEC INR 1.0 (0.9-1.1) APTT 30.6 (26.0-36.4) SEC Sodium 137 (135-145) mmol/L Potassium 3.9 (3.3-5.1) mmol/L Chloride 105 (96-108) mmol/L Carbon Dioxide 25 (22-29) mmol/L Anion Gap 11 L (12-20) BUN 11 (9-16) mg/dL Creatinine 0.81 (0.5-1.4) mg/dL Estim Creat Clear Calc 147.5 Estimated GFR > 60 Random Glucose 110 (60-115) mg/dL Lactic Acid (0.5-2.0) mmol/L Calcium 9.1 (8.4-10.2) mg/dL Total Bilirubin 0.4 (0.0-1.0) mg/dL AST 27 (5-37) U/L ALT 33 (0-40) U/L Alkaline Phosphatase 81 (39-117) U/L Total Protein 7.3 (6.5-8.0) g/dL Albumin 4.1 (3.5-5.0) g/dL Lipase 25 (8-78) U/L COVID-19 (CH[facility]STIAN) (Negative) COVID-19 Clin Com Influenza Type A (BHARGAVI) (Negative) Influenza Type B (BHARGAVI) (Negative) Influenza A & B Note 12/18/22 12/18/22 12/18/22 Range/Units 04:35 05:45 05:45 WBC (4.8-10.8) X10*3/uL RBC (4.60-5.80) X10*6/uL Hgb (14.0-18.0) g/dl Hct (42.0-52.0) % MCV (80.0-98.0) fL MCH (27.0-33.0) pg MCHC (31.0-36.0) g/dl RDW (11.0-16.0) % Plt Count (160-400) X10*3/uL MPV (9.4-12.4) fL Immature Gran % (Auto) (0.0-0.4) % Neut % (Auto) (45-73) % Lymph % (Auto) (20-40) % [place] % (Auto) (2-11) % Eos % (Auto) (0-4) % Baso % (Auto) (0-2) % Lymph # (Auto) (1.2-4.9) X10*3/uL [place] # (Auto) (0.1-1.2) X10*3/uL Eos # (Auto) (0.0-0.4) X10*3/uL Baso # (Auto) (0.0-0.2) X10*3/uL Abs Immat Gran (auto) (0.00-0.03) X10*3/uL Absolute Neuts (auto) (2.0-8.3) x10*3/uL Absolute Nucleated RBC (0.0-0.012) X10*3/uL Nucleated RBC % (auto) (0.0-0.2) /100WBC PT (10.0-13.1) SEC INR (0.9-1.1) APTT (26.0-36.4) SEC Sodium (135-145) mmol/L Potassium (3.3-5.1) mmol/L Chloride (96-108) mmol/L Carbon Dioxide (22-29) mmol/L Anion Gap (12-20) BUN (9-16) mg/dL Creatinine (0.5-1.4) mg/dL Estim Creat Clear Calc Estimated GFR Random Glucose (60-115) mg/dL Lactic Acid 1.1 (0.5-2.0) mmol/L Calcium (8.4-10.2) mg/dL Total Bilirubin (0.0-1.0) mg/dL AST (5-37) U/L ALT (0-40) U/L Alkaline Phosphatase (39-117) U/L Total Protein (6.5-8.0) g/dL Albumin (3.5-5.0) g/dL Lipase (8-78) U/L COVID-19 (CHRISTIAN) Negative (Negative) COVID-19 Clin Com See Note Influenza Type A (BHARGAVI) Negative (Negative) Influenza Type B (BHARGAVI) Negative (Negative) Influenza A & B Note See Note Independent Interpretation I performed an independent interpretation of an: Plain X-Ray Interpretation: My independent interpretation of the patient's chest x-ray is as follows: No acute disease Radiology Impression Discussion of test interpretation with radiology: I have reviewed the radiologist's reading. Radiologist Impression: XR chest one view IMPRESSION: No acute cardiopulmonary findings. Dictated By:Terry Fuentes MD Discharge Plan Discharge Clinical Impression: Asthma exacerbation, Acute neck pain, Chest pain Patient Disposition: Home, Self-Care Instructions: Asthma (ED), Acute Neck Pain (ED) Additional Instructions: Your laboratory evaluation was unremarkable. Your COVID-19 and influenza tests were negative. Your chest x-ray was normal with no evidence for pneumonia. Your symptoms are consistent with an asthma exacerbation. Take prednisone 20 mg pills, 3 pills once a day for 5 days. While you are taking prednisone, do not take any NSAIDs (Motrin, Advil, ibuprofen, Aleve, naproxen). Continue the use your albuterol inhaler 2 puffs every 4 hours as needed for shortness of breath. For your neck pain take Tylenol 500 mg pills, 2 pills every 6 hours as needed for pain. Also Take Flexeril (cyclobenzaprine) 10 mg pills, 1 pill every 6-8 hours as needed for pain or spasm. This medication will make you sleepy. Do not drive or work while taking this medication. Follow-up with your doctor in 2 days. Please return to the emergency department if your symptoms get worse or if you develop any symptoms that are concerning to you. Prescriptions: New cyclobenzaprine 10 mg tablet 10 mg PO TID PRN (Reason: pain, muscle spasm) Qty: 15 0RF prednisone 20 mg tablet 60 mg PO DAILY 5 Days Qty: 15 0RF acetaminophen [Tylenol Extra Strength] 500 mg tablet 1,000 mg PO Q6H PRN (Reason: fever or pain) Qty: 20 0RF No Action prednisone 20 mg tablet 40 mg PO DAILY Qty: 10 0RF albuterol sulfate [ProAir HFA] 90 mcg/actuation HFA aerosol inhaler 2 puff inhalation Q4-6H PRN (Reason: Wheezing) Qty: 8.5 0RF prednisone 20 mg tablet 40 mg PO DAILY Qty: 10 0RF albuterol sulfate [ProAir HFA] 90 mcg/actuation HFA aerosol inhaler 2 puff inhalation Q4-6H PRN (Reason: shortness of breath or wheezing) Qty: 8.5 3RF albuterol sulfate 2.5 mg /3 mL (0.083 %) solution for nebulization 2.5 mg inhalation Q4-6H PRN (Reason: shortness of breath or wheezing) Qty: 90 0RF prednisone 50 mg tablet 50 mg PO DAILY 4 Days Qty: 4 0RF fluticasone propion-salmeterol [Advair Diskus] 500-50 mcg/dose blister with device 1 inh inhalation BID Qty: 60 0RF (DME) nebulizer and compressor Device See Rx Instructions .Route Qty: 1 0RF Rx Instructions: As directed albuterol sulfate 90 mcg/actuation HFA aerosol inhaler 2 puff inhalation Q4-6H PRN (Reason: shortness of breath or wheezing) Qty: 8.5 0RF (DME) nebulizers [Aeroneb Go Nebulizer] Misc See Rx Instructions .Route Qty: 1 0RF Rx Instructions: As directed montelukast [Singulair] 10 mg Tablet 10 mg PO DAILY albuterol sulfate 2.5 mg /3 mL (0.083 %) solution for nebulization 2.5 mg inhalation Q4-6H PRN (Reason: shortness of breath or wheezing) Qty: 90 0RF albuterol sulfate 90 mcg/actuation HFA aerosol inhaler 1 inh inhalation QID PRN (Reason: shortness of breath or wheezing) Qty: 8.5 0RF prednisone 20 mg tablet 20 mg PO BID Qty: 10 0RF albuterol sulfate 90 mcg/actuation aerosol powdr breath activated 2 inh inhalation Q4-6H PRN (Reason: shortness of breath or wheezing) Qty: 1 0RF albuterol sulfate 2.5 mg /3 mL (0.083 %) solution for nebulization 2.5 mg inhalation Q6H Qty: 75 0RF prednisone 20 mg tablet 40 mg PO DAILY 5 Days Qty: 10 0RF albuterol sulfate 90 mcg/actuation HFA aerosol inhaler 2 puff inhalation Q4-6H PRN (Reason: shortness of breath or wheezing) Qty: 8.5 1RF prednisone 50 mg tablet 50 mg PO DAILY Qty: 5 0RF pantoprazole [Protonix] 40 mg tablet,delayed release (DR/EC) 40 mg PO DAILY Qty: 30 0RF sucralfate 1 gram tablet 1 g PO BID Qty: 60 0RF albuterol sulfate 5 mg/mL solution for nebulization 5 mg inhalation Q4H PRN (Reason: shortness of breath or wheezing) Qty: 600 0RF prednisone 10 mg tablets,dose pack See Taper PO DAILY Qty: 48 0RF Taper: Prednisone 40 mg daily for 3 Days and 0 Hour 30 mg daily for 3 Days and 0 Hour 20 mg daily for 3 Days and 0 Hour 10 mg daily for 3 Days and 0 Hour albuterol sulfate [Ventolin HFA] 90 mcg/actuation HFA aerosol inhaler 1 inh inhalation QID PRN (Reason: shortness of breath or wheezing) Qty: 8.5 0RF prednisone 20 mg tablet 40 mg PO DAILY 5 Days Qty: 10 0RF albuterol sulfate 90 mcg/actuation aerosol powdr breath activated 2 inh inhalation Q6H PRN (Reason: sob) Qty: 1 0RF albuterol sulfate 2.5 mg /3 mL (0.083 %) solution for nebulization 2.5 mg inhalation Q6H PRN (Reason: shortness of breath or wheezing) Qty: 90 0RF
== END 2022-12-18 07:12 | disposition home or self-care (01) ==
PROVIDERS: Emergency Provider Emergency Medicine Emergency Medical Services
DX: J45.901 Unspecified asthma with (acute) exacerbation (principal); M54.2 Cervicalgia; R07.89 Other chest pain; Z20.822 Contact with and (suspected) exposure to COVID-19; Z20.828 Contact with and (suspected) exposure to other viral communicable diseases; Z79.899 Other long term (current) drug therapy
CPT/HCPCS: 36415; 71045; 80053; 83605; 83690; 85025; 85610; 85730; 87502; 87635; 94640; 96374; 96376; 99284; J2930

== ENCOUNTER 2022-12-19 00:23 | Emergency (ER) | payer MEDICAID, SELFPAY ==
[2022-12-19 00:24] VITALS: BP 137/84; PULSE 102; RESP 20; TEMP 37.1; O2SAT 93; BMI 36.6
[2022-12-19 01:32] LABS: Basophils Absolute Auto 0.1 X10*3/uL (0.0-0.2); Basophils Percent Auto 0.3 % (0-2); Eosinophils Percent Auto 0.1 % (0-4); Hematocrit 41.5 % (42.0-52.0); Imm Gran Abs Auto 0.12 X10*3/uL (0.00-0.03); Imm Gran Pct Auto 0.6 % (0.0-0.4); Lymphocytes Absolute Auto 2.5 X10*3/uL (1.2-4.9); Lymphocytes Percent Auto 11.7 % (20-40); MANUAL DIFF FLAG SCAN; Mean Corpuscular HGB Conc 33.7 g/dl (31.0-36.0); Mean Corpuscular Hemoglobin 27.1 pg (27.0-33.0); Mean Corpuscular Volume 80.4 fL (80.0-98.0); Mean Platelet Volume 9.2 fL (9.4-12.4); Monocytes Absolute Auto 1.8 X10*3/uL (0.1-1.2); Monocytes Percent Auto 8.2 % (2-11); Neutrophils Percent Auto 79.1 % (45-73); Platelet Count 382 X10*3/uL (160-400); Red Blood Count 5.16 X10*6/uL (4.60-5.80); Red Cell Distribution Width 12.1 % (11.0-16.0); SCAN SMEAR FLAG 1; White Blood Count 21.5 X10*3/uL (4.8-10.8)
[2022-12-19 01:35] LABS: SLIDE REVIEW VERIFIED
[2022-12-19 01:48] LABS: Anion Gap 13 (12-20); Blood Urea Nitrogen 12 mg/dL (9-16); Calcium 9.8 mg/dL (8.4-10.2); Carbon Dioxide 21 mmol/L (22-29); Chloride 106 mmol/L (96-108); Creatinine Clr Calc Pharmacy 124.4; Estimated Glomerular Filt Rate > 60; Glucose Random 173 mg/dL (60-115); Potassium 4.4 mmol/L (3.3-5.1); Sodium 136 mmol/L (135-145)
[2022-12-19 01:53] LABS: Troponin-I High Sensitivity < 2.7 ng/L (<3.5-35.0)
[2022-12-19 02:44] VITALS: BP 132/77; PULSE 100; RESP 20; TEMP 36.6; O2SAT 94
--- NOTE | 2022-12-19 04:54 | PC.NURSE ---
Pt eloped from one after waiting to be seen by provider.
--- NOTE | 2022-12-19 08:09 | ECG_ITS ---
Test Reason : HEART PALPATATIONS Blood Pressure : / mmHG Vent. Rate : 081 BPM Atrial Rate : 081 BPM P-R Int : 150 ms QRS Dur : 090 ms QT Int : 334 ms P-R-T Axes : 046 057 039 degrees QTc Int : 387 ms Normal sinus rhythm Normal ECG When compared with ECG of 10-NOV-2022 01:41, No significant change was found Referred By: Charbel Paul Electronically Signed By:ERIKA VILLARREAL
== END 2022-12-19 04:56 | disposition left against medical advice (07) ==
PROVIDERS: Emergency Provider Emergency Medicine
DX: R00.2 Palpitations (principal); Z79.899 Other long term (current) drug therapy
CPT/HCPCS: 36415; 80048; 84484; 85025; 93005; 99283; 99284

== ENCOUNTER 2022-12-29 08:09 | Emergency (ER) | payer MEDICAID, SELFPAY ==
--- NOTE | ~2022-12-29 | XR_ITS ---
EXAMINATION: XR CHEST CLINICAL INFORMATION: Wheezing COMPARISON: None available. TECHNIQUE: PA view of the chest was obtained. FINDINGS: No significant abnormality is noted involving the heart, lungs, mediastinum, bony thorax or soft tissues. XR/XR chest 1V IMPRESSION: No acute disease.
[2022-12-29 08:10] VITALS: BP 152/91; PULSE 113; RESP 24; TEMP 36.8; O2SAT 91; BMI 33.4
[2022-12-29] MEDS: Albuterol Sulfate (0.083%) 2.5 MG/3 ML VIAL.NEB 10 MG INHALE ×3 (08:23→10:08)
[2022-12-29 08:24] VITALS: PULSE 102; RESP 20; O2SAT 95
[2022-12-29] MEDS: Magnesium Sulfate/H2O 2 GM/50 ML PIGGYBACK IV (08:25)
[2022-12-29] MEDS: methylPREDNISolone Sod Succ 125 MG/2 ML VIAL IVPUSH (08:25)
--- NOTE | 2022-12-29 08:38 | ED_ITS ---
HPI - SOB/Dyspnea General Chief Complaint: Dyspnea Stated Complaint: asthma Time Seen by Provider: 12/29/22 08:18 History of Present Illness HPI Narrative: 27 yo male with a pmh of Asthma with frequent exacerbations and ER visits presenting to the ED for two days of SOB and wheezing. His symptoms woke him up from sleep, and he was not able to get relief from his PRN Albuterol inhaler or nebulizer treatment. He was here one week ago for SOB as well, and states the fluctuating temperature has been difficult for him. He has a long history of asthma attacks and believes they come on randomly. He does not use a daily inhaler. He denies chest pain or pain with inspiration. He also endorses one month of right shoulder pain that started when he was playing basketball. He says the pain is not relieved with Advil, ice, or rest. MD elicited complaint: shortness of breath Pertinent past history: asthma Onset (ago): day(s) (2) Timing: progressively worsening Severity: similar to previous episodes Exacerbating factors: cold air and warm air Relieving factors: bronchodilators Known history of: asthma Associated symptoms: denies other symptoms Treatment prior to arrival: bronchodilator Related Data Home oxygen amount: none Home Medications Medication Instructions Recorded Confirmed montelukast 10 mg tablet 10 mg PO DAILY 04/24/22 04/24/22 (Singulair) Previous Rx's Medication Instructions Recorded fluticasone 500 mcg-salmeterol 50 1 inh inhalation BID #60 ea 07/02/21 mcg/dose blistr powdr for inhalation (Advair Diskus) nebulizer and compressor #1 ea 09/15/21 albuterol sulfate 90 mcg/actuation 2 puff inhalation Q4-6H PRN 04/18/22 aerosol inhaler shortness of breath or wheezing #8.5 grams nebulizers (Aeroneb Go Nebulizer) #1 ea 04/18/22 albuterol sulfate 90 mcg/actuation 2 puff inhalation Q4-6H PRN 05/14/22 aerosol inhaler (ProAir HFA) Wheezing #8.5 grams prednisone 20 mg tablet 40 mg PO DAILY #10 tabs 05/14/22 albuterol sulfate 2.5 mg/3 mL 2.5 mg (3 mL) inhalation Q4-6H PRN 06/24/22 (0.083 %) solution for nebulization shortness of breath or wheezing #90 mL albuterol sulfate 90 mcg/actuation 2 puff inhalation Q4-6H PRN 06/24/22 aerosol inhaler (ProAir HFA) shortness of breath or wheezing #8.5 grams prednisone 20 mg tablet 40 mg PO DAILY #10 tabs 06/24/22 albuterol sulfate 2.5 mg/3 mL 2.5 mg (3 mL) inhalation Q4-6H PRN 08/11/22 (0.083 %) solution for nebulization shortness of breath or wheezing #90 mL albuterol sulfate 90 mcg/actuation 1 inh inhalation QID PRN shortness 08/11/22 aerosol inhaler of breath or wheezing #8.5 grams prednisone 20 mg tablet 20 mg PO BID #10 tabs 08/11/22 prednisone 50 mg tablet 50 mg PO DAILY 4 days #4 tabs 08/15/22 albuterol sulfate 2.5 mg/3 mL 2.5 mg (3 mL) inhalation Q6H #75 mL 08/28/22 (0.083 %) solution for nebulization albuterol sulfate 90 mcg/actuation 2 inh inhalation Q4-6H PRN 08/28/22 breath activated powder inhaler shortness of breath or wheezing #1 ea prednisone 20 mg tablet 40 mg PO DAILY 5 days #10 tabs 08/28/22 albuterol sulfate 90 mcg/actuation 2 puff inhalation Q4-6H PRN 10/26/22 aerosol inhaler shortness of breath or wheezing #8.5 grams prednisone 50 mg tablet 50 mg PO DAILY #5 tabs 10/26/22 pantoprazole 40 mg tablet,delayed 40 mg PO DAILY #30 tabs 11/10/22 release (Protonix) sucralfate 1 gram tablet 1 g PO BID #60 tabs 11/10/22 albuterol sulfate 5 mg/mL(0.5 %) 5 mg inhalation Q4H PRN shortness 11/19/22 solution for nebulization of breath or wheezing #600 mL albuterol sulfate 90 mcg/actuation 1 inh inhalation QID PRN shortness 11/19/22 aerosol inhaler (Ventolin HFA) of breath or wheezing #8.5 grams prednisone 10 mg tablets in a dose See Taper PO DAILY #48 ea 11/19/22 pack albuterol sulfate 2.5 mg/3 mL 2.5 mg (3 mL) inhalation Q6H PRN 12/07/22 (0.083 %) solution for nebulization shortness of breath or wheezing #90 mL albuterol sulfate 90 mcg/actuation 2 inh inhalation Q6H PRN sob #1 ea 12/07/22 breath activated powder inhaler prednisone 20 mg tablet 40 mg PO DAILY 5 days #10 tabs 12/07/22 acetaminophen 500 mg tablet 1,000 mg PO Q6H PRN fever or pain 12/18/22 (Tylenol Extra Strength) #20 tabs cyclobenzaprine 10 mg tablet 10 mg PO TID PRN pain, muscle 12/18/22 spasm #15 tabs prednisone 20 mg tablet 60 mg PO DAILY 5 days #15 tabs 12/18/22 albuterol sulfate 5 mg/mL(0.5 %) 5 mg inhalation Q4H PRN shortness 12/29/22 solution for nebulization of breath or wheezing #600 mL cyclobenzaprine 10 mg tablet 10 mg PO TID PRN muscle spasm #14 12/29/22 tabs prednisone 10 mg tablets in a dose See Taper PO DAILY #48 ea 12/29/22 pack Allergies Allergy/AdvReac Type Severity Reaction Status Date / Time shellfish derived Allergy Severe SHORTNESS Verified 11/10/22 01:49 OF BREATH, SWELLING shrimp Allergy Severe ANAPHYLAXIS Verified 11/10/22 01:49 Review of Systems Review of Systems: Yes all other systems are reviewed and are negative PMFSH Past Medical History Medical History Asthma Asthma Pneumonia due to 2019 novel coronavirus Family History Family History Mother Asthma Social History Social History Household Members: None Housing: House Do you presently have visiting nurse or other home services: No Alcohol intake: current Alcohol intake frequency: holidays/special occasions only Alcohol type: other Patient Tobacco Use Status: Never used Tobacco Advance Directives: No Advance Directives Information Provided: Yes service: No Current occupational status: unemployed Physical Exam Vital Signs: Vital Signs: Last Vital Signs Temp 98.3 F 12/29/22 08:10 Pulse 106 H 12/29/22 10:09 Resp 20 12/29/22 10:09 BP 152/91 H 12/29/22 08:10 Pulse Ox 91 L 12/29/22 08:10 O2 Del Method Room Air 12/29/22 08:10 BMI result Body Mass Index 33.4 Appearance: Alert. Oriented X3. Respiratory distress noted. Head: normocephalic, atraumatic. Neck: Normal inspection. CVS: Normal heart rate and rhythm. Pulses normal. Respiratory: Moderate respiratory distress with increased RR and increased WOB. Diffuse insp/exp wheezing throughout the lungs.. Skin: Skin warm and dry. Normal skin color. Normal skin turgor. No rashes. Extremities: No lower extremity edema. No joint swelling. No pain to palpation of the right shoulder. Normal ROM. No decreased strength of RUE. Neuro/psych: Oriented X 3. No motor deficit. No sensory deficit. . Normal speech and cognition. Course Reevaluation(s) Reevaluation #1: s/p albuterol neb 10 mg x2, solumnedrol and mg++ 2gm with improvement in aeration however he remains diffusely wheezy. this is his 6th ER visit this year for asthma related complaints. his last inpatient admission was 05/05 when he left AMA, prior to that was apr 2021 for COVID & hypoxia will discuss inpatent admission vs further treatments in the ER Time: 09:47 Reevaluation #2: patient feeling better after 3rd neb. he is refusing admission. sats 98% on room air he will call pulmonology for a follow up Medications Administered Discontinued Medications Generic Name Dose Route Start Last Admin Trade Name Jrq PRN Reason Stop Dose Admin Albuterol Sulfate 10 mg 12/29/22 08:18 12/29/22 08:23 Albuterol Sulfate (0.083%) 2.5 Mg/3 Ml Vial.Neb INHALE 12/29/22 08:19 10 mg ONCE ONE Administration Albuterol Sulfate 10 mg 12/29/22 08:46 12/29/22 09:03 Albuterol Sulfate (0.083%) 2.5 Mg/3 Ml Vial.Neb INHALE 12/29/22 08:47 10 mg ONCE ONE Administration Albuterol Sulfate 10 mg 12/29/22 09:54 12/29/22 10:08 Albuterol Sulfate (0.083%) 2.5 Mg/3 Ml Vial.Neb INHALE 12/29/22 09:55 10 mg ONCE ONE Administration Magnesium Sulfate 2 gm in 50 mls @ 25 mls/hr 12/29/22 08:18 12/29/22 08:45 Magnesium Sulfate/H2o IV 12/29/22 10:17 Infused ONCE ONE Infusion Methylprednisolone Sodium Succinate 125 mg 12/29/22 08:18 12/29/22 08:25 Methylprednisolone Sod Succ 125 Mg/2 Ml Vial IVPUSH 12/29/22 08:19 125 mg ONCE ONE Administration Medical Decision Making Medical Decision Making MDM Narrative: 27 yo male w/ SOB due to an an acute asthma exacerbation. Patient does not have a cough, or fever making other etiologies such as pneumonia or virus less likely. He has poorly controlled severe persistent asthma at baseline and has not followed up with pulmonology in a very long time. He was given multiple nebulizer treatments in the ED and sent home with steroids and Mg++ with improvement in his symptoms. he declined admission. he will f/u with pulmonology Differential Diagnosis Differential Diagnoses: The differential diagnosis associated with the pres entation includes Asthma pneumonia PE pneumothorax upper respiratory infection Admission/Observation Consideration of admission/observation: Escalation of care including admission/observation considered Lab Data [facility] [place] Lab Attestation statement: I reviewed the patient's lab results. 12/29/22 09:22 12/29/22 09:22 Labs: Lab Results 12/29/22 12/29/22 12/29/22 Range/Units 09:22 09:22 09:26 WBC 11.4 H (4.8-10.8) X10*3/uL RBC 5.72 (4.60-5.80) X10*6/uL Hgb 15.7 (14.0-18.0) g/dl Hct 45.1 (42.0-52.0) % MCV 78.8 L (80.0-98.0) fL MCH 27.4 (27.0-33.0) pg MCHC 34.8 (31.0-36.0) g/dl RDW 12.0 (11.0-16.0) % Plt Count 365 (160-400) X10*3/uL MPV 9.3 L (9.4-12.4) fL Absolute Nucleated RBC 0.000 (0.0-0.012) X10*3/uL Nucleated RBC % (auto) 0.0 (0.0-0.2) /100WBC VBG pH 7.39 (7.32-7.43) VBG pCO2 32 mmHg VBG pO2 85 mmHg VBG HCO3 19 L (22-26) mmol/L VBG O2 Saturation 98.0 % VBG Base Excess -3.7 mmol/L Sodium 137 (135-145) mmol/L Potassium 4.1 (3.3-5.1) mmol/L Chloride 107 (96-108) mmol/L Carbon Dioxide 22 (22-29) mmol/L Anion Gap 12 (12-20) BUN 9 (9-16) mg/dL Creatinine 0.87 (0.5-1.4) mg/dL Estim Creat Clear Calc 144.7 Estimated GFR > 60 Random Glucose 124 H (60-115) mg/dL Calcium 9.1 D (8.4-10.2) mg/dL Independent Interpretation I performed an independent interpretation of an: Plain X-Ray Interpretation: no PNA, clear lungs Radiology Impression Discussion of test interpretation with radiology: I have reviewed the radiologist's reading. Radiologist Impression: EXAMINATION: XR CHEST CLINICAL INFORMATION: Wheezing COMPARISON: None available. TECHNIQUE: PA view of the chest was obtained. FINDINGS: No significant abnormality is noted involving the heart, lungs, mediastinum, bony thorax or soft tissues. XR/XR chest 1V IMPRESSION: No acute disease External Record Review External record reviewed: Outpatient record, Prior outpatient labs and Prior outpatient radiology Prescription Management I considered prescription management with: Pain Medication, Antibiotic and Other (prednisone) Chronic Conditions Patient?s care impacted by: Other (asthma) Social Determinants Patient?s care significantly limited by Social Determinants of Health including: Other Social Determinant of Health Critical Care Time Critical Care Time Critical Care Time: Yes Total Critical Care Time: 44 Attestation: I have personally provided critical care time exclusive of time spent on separately billable procedures. Time includes review of lab data, radiology results, frequent bedside reassessments, and monitoring for potential decompensation. Intervention performed as documented. Discharge Plan Discharge Clinical Impression: Asthma with exacerbation Patient Disposition: Home, Self-Care Instructions: Asthma (ED) Additional Instructions: Your chest x-ray was clear Your asthma exacerbation frequency is increasing, it is VERY important that your call PULMONOLOGY FOR A FOLLOW UP Take the prescribed prednisone taper as directed - start it today, complete the entire course Continue nebs at home every 4 hours Again - call Pulmonology please :) Prescriptions: New prednisone 10 mg tablets,dose pack See Taper PO DAILY Qty: 48 0RF Taper: Prednisone 40 mg daily for 3 Days and 0 Hour 30 mg daily for 3 Days and 0 Hour 20 mg daily for 3 Days and 0 Hour 10 mg daily for 3 Days and 0 Hour albuterol sulfate 5 mg/mL solution for nebulization 5 mg inhalation Q4H PRN (Reason: shortness of breath or wheezing) Qty: 600 0RF cyclobenzaprine 10 mg tablet 10 mg PO TID PRN (Reason: muscle spasm) Qty: 14 0RF No Action prednisone 20 mg tablet 40 mg PO DAILY Qty: 10 0RF albuterol sulfate [ProAir HFA] 90 mcg/actuation HFA aerosol inhaler 2 puff inhalation Q4-6H PRN (Reason: Wheezing) Qty: 8.5 0RF prednisone 20 mg tablet 40 mg PO DAILY Qty: 10 0RF albuterol sulfate [ProAir HFA] 90 mcg/actuation HFA aerosol inhaler 2 puff inhalation Q4-6H PRN (Reason: shortness of breath or wheezing) Qty: 8.5 3RF albuterol sulfate 2.5 mg /3 mL (0.083 %) solution for nebulization 2.5 mg inhalation Q4-6H PRN (Reason: shortness of breath or wheezing) Qty: 90 0RF prednisone 50 mg tablet 50 mg PO DAILY 4 Days Qty: 4 0RF fluticasone propion-salmeterol [Advair Diskus] 500-50 mcg/dose blister with device 1 inh inhalation BID Qty: 60 0RF (DME) nebulizer and compressor Device See Rx Instructions .Route Qty: 1 0RF Rx Instructions: As directed albuterol sulfate 90 mcg/actuation HFA aerosol inhaler 2 puff inhalation Q4-6H PRN (Reason: shortness of breath or wheezing) Qty: 8.5 0RF (DME) nebulizers [Aeroneb Go Nebulizer] Misc See Rx Instructions .Route Qty: 1 0RF Rx Instructions: As directed montelukast [Singulair] 10 mg Tablet 10 mg PO DAILY albuterol sulfate 2.5 mg /3 mL (0.083 %) solution for nebulization 2.5 mg inhalation Q4-6H PRN (Reason: shortness of breath or wheezing) Qty: 90 0RF albuterol sulfate 90 mcg/actuation HFA aerosol inhaler 1 inh inhalation QID PRN (Reason: shortness of breath or wheezing) Qty: 8.5 0RF prednisone 20 mg tablet 20 mg PO BID Qty: 10 0RF albuterol sulfate 90 mcg/actuation aerosol powdr breath activated 2 inh inhalation Q4-6H PRN (Reason: shortness of breath or wheezing) Qty: 1 0RF albuterol sulfate 2.5 mg /3 mL (0.083 %) solution for nebulization 2.5 mg inhalation Q6H Qty: 75 0RF prednisone 20 mg tablet 40 mg PO DAILY 5 Days Qty: 10 0RF albuterol sulfate 90 mcg/actuation HFA aerosol inhaler 2 puff inhalation Q4-6H PRN (Reason: shortness of breath or wheezing) Qty: 8.5 1RF prednisone 50 mg tablet 50 mg PO DAILY Qty: 5 0RF pantoprazole [Protonix] 40 mg tablet,delayed release (DR/EC) 40 mg PO DAILY Qty: 30 0RF sucralfate 1 gram tablet 1 g PO BID Qty: 60 0RF albuterol sulfate 5 mg/mL solution for nebulization 5 mg inhalation Q4H PRN (Reason: shortness of breath or wheezing) Qty: 600 0RF prednisone 10 mg tablets,dose pack See Taper PO DAILY Qty: 48 0RF Taper: Prednisone 40 mg daily for 3 Days and 0 Hour 30 mg daily for 3 Days and 0 Hour 20 mg daily for 3 Days and 0 Hour 10 mg daily for 3 Days and 0 Hour albuterol sulfate [Ventolin HFA] 90 mcg/actuation HFA aerosol inhaler 1 inh inhalation QID PRN (Reason: shortness of breath or wheezing) Qty: 8.5 0RF prednisone 20 mg tablet 40 mg PO DAILY 5 Days Qty: 10 0RF albuterol sulfate 90 mcg/actuation aerosol powdr breath activated 2 inh inhalation Q6H PRN (Reason: sob) Qty: 1 0RF albuterol sulfate 2.5 mg /3 mL (0.083 %) solution for nebulization 2.5 mg inhalation Q6H PRN (Reason: shortness of breath or wheezing) Qty: 90 0RF cyclobenzaprine 10 mg tablet 10 mg PO TID PRN (Reason: pain, muscle spasm) Qty: 15 0RF prednisone 20 mg tablet 60 mg PO DAILY 5 Days Qty: 15 0RF acetaminophen [Tylenol Extra Strength] 500 mg tablet 1,000 mg PO Q6H PRN (Reason: fever or pain) Qty: 20 0RF Referrals: [facility] [place] [facility] [Provider Group] (severe persistent asthma with several ER visits) [facility] [Primary Care Provider] - Interventions: ED Discharge Assessment Last Done: 12/29/22 11:09 Discharge Date/Time: 12/29/22 11:10
[2022-12-29 09:06] VITALS: PULSE 106; RESP 18; O2SAT 97
[2022-12-29 09:30] LABS: Venous Blood Gas Refer to POC result
[2022-12-29 09:32] LABS: Hematocrit 45.1 % (42.0-52.0); Hemoglobin 15.7 g/dl (14.0-18.0); Mean Corpuscular HGB Conc 34.8 g/dl (31.0-36.0); Mean Corpuscular Hemoglobin 27.4 pg (27.0-33.0); Mean Corpuscular Volume 78.8 fL (80.0-98.0); Mean Platelet Volume 9.3 fL (9.4-12.4); Platelet Count 365 X10*3/uL (160-400); Red Blood Count 5.72 X10*6/uL (4.60-5.80); White Blood Count 11.4 X10*3/uL (4.8-10.8)
[2022-12-29 09:34] LABS: VBG Base Excess -3.7 mmol/L; VBG HCO3 19 mmol/L (22-26); VBG pCO2 32 mmHg; VBG pH 7.39 (7.32-7.43); VBG pO2 85 mmHg
[2022-12-29 09:45] LABS: Anion Gap 12 (12-20); Blood Urea Nitrogen 9 mg/dL (9-16); Calcium 9.1 mg/dL (8.4-10.2); Carbon Dioxide 22 mmol/L (22-29); Chloride 107 mmol/L (96-108); Creatinine Clr Calc Pharmacy 144.7; Estimated Glomerular Filt Rate > 60; Glucose Random 124 mg/dL (60-115); Potassium 4.1 mmol/L (3.3-5.1); Sodium 137 mmol/L (135-145)
[2022-12-29 10:09] VITALS: PULSE 106; RESP 20; O2SAT 92
== END 2022-12-29 11:10 | disposition home or self-care (01) ==
PROVIDERS: Physician Assistant; Emergency Provider Student in an Organized Health Care Education/Training Program
DX: J45.901 Unspecified asthma with (acute) exacerbation (principal); R06.02 Shortness of breath; Z79.899 Other long term (current) drug therapy
CPT/HCPCS: 36415; 71045; 80048; 82803; 85027; 94640; 96365; 96375; 99284; 99285; J2930; J3475

== ENCOUNTER 2023-02-12 03:40 | Emergency (ER) | payer MEDICAID, SELFPAY ==
[2023-02-12 03:45] VITALS: BP 145/94; PULSE 102; RESP 22; TEMP 36.4; O2SAT 92; BMI 36.6
[2023-02-12 03:58] VITALS: BP 140/84; PULSE 100; RESP 20; TEMP 36.6; O2SAT 94
[2023-02-12 03:59] VITALS: O2SAT 94
--- NOTE | 2023-02-12 04:18 | ED.GENADULT ---
HPI - General Adult General Chief complaint: Upper Respiratory Symptoms Stated complaint: Asthma Time Seen by Provider: 02/12/23 04:18 Source: patient Mode of arrival: ambulatory Limitations: no limitations History of Present Illness HPI narrative: 28-year-old male presents with shortness of breath. Symptoms started approximately 2-3 hours ago. Symptoms are severe. There is no clear relieving or exacerbating features. He has had no fevers or chills. Describes chest tightness. These are similar to previous asthma exacerbations. He had has no cough, runny nose, sore throat or other upper respiratory infectious symptoms. Prior treatment included albuterol inhaler without improvement Related Data Home Medications Medication Instructions Recorded Confirmed montelukast 10 mg tablet 10 mg PO DAILY 04/24/22 04/24/22 (Singulair) Previous Rx's Medication Instructions Recorded fluticasone 500 mcg-salmeterol 50 1 inh inhalation BID #60 ea 07/02/21 mcg/dose blistr powdr for inhalation (Advair Diskus) nebulizer and compressor #1 ea 09/15/21 albuterol sulfate 90 mcg/actuation 2 puff inhalation Q4-6H PRN 04/18/22 aerosol inhaler shortness of breath or wheezing #8.5 grams nebulizers (Aeroneb Go Nebulizer) #1 ea 04/18/22 albuterol sulfate 90 mcg/actuation 2 puff inhalation Q4-6H PRN 05/14/22 aerosol inhaler (ProAir HFA) Wheezing #8.5 grams prednisone 20 mg tablet 40 mg PO DAILY #10 tabs 05/14/22 albuterol sulfate 2.5 mg/3 mL 2.5 mg (3 mL) inhalation Q4-6H PRN 06/24/22 (0.083 %) solution for nebulization shortness of breath or wheezing #90 mL albuterol sulfate 90 mcg/actuation 2 puff inhalation Q4-6H PRN 06/24/22 aerosol inhaler (ProAir HFA) shortness of breath or wheezing #8.5 grams prednisone 20 mg tablet 40 mg PO DAILY #10 tabs 06/24/22 albuterol sulfate 2.5 mg/3 mL 2.5 mg (3 mL) inhalation Q4-6H PRN 08/11/22 (0.083 %) solution for nebulization shortness of breath or wheezing #90 mL albuterol sulfate 90 mcg/actuation 1 inh inhalation QID PRN shortness 08/11/22 aerosol inhaler of breath or wheezing #8.5 grams prednisone 20 mg tablet 20 mg PO BID #10 tabs 08/11/22 prednisone 50 mg tablet 50 mg PO DAILY 4 days #4 tabs 08/15/22 albuterol sulfate 2.5 mg/3 mL 2.5 mg (3 mL) inhalation Q6H #75 mL 08/28/22 (0.083 %) solution for nebulization albuterol sulfate 90 mcg/actuation 2 inh inhalation Q4-6H PRN 08/28/22 breath activated powder inhaler shortness of breath or wheezing #1 ea prednisone 20 mg tablet 40 mg PO DAILY 5 days #10 tabs 08/28/22 albuterol sulfate 90 mcg/actuation 2 puff inhalation Q4-6H PRN 10/26/22 aerosol inhaler shortness of breath or wheezing #8.5 grams prednisone 50 mg tablet 50 mg PO DAILY #5 tabs 10/26/22 pantoprazole 40 mg tablet,delayed 40 mg PO DAILY #30 tabs 11/10/22 release (Protonix) sucralfate 1 gram tablet 1 g PO BID #60 tabs 11/10/22 albuterol sulfate 5 mg/mL(0.5 %) 5 mg inhalation Q4H PRN shortness 11/19/22 solution for nebulization of breath or wheezing #600 mL albuterol sulfate 90 mcg/actuation 1 inh inhalation QID PRN shortness 11/19/22 aerosol inhaler (Ventolin HFA) of breath or wheezing #8.5 grams prednisone 10 mg tablets in a dose See Taper PO DAILY #48 ea 11/19/22 pack albuterol sulfate 2.5 mg/3 mL 2.5 mg (3 mL) inhalation Q6H PRN 12/07/22 (0.083 %) solution for nebulization shortness of breath or wheezing #90 mL albuterol sulfate 90 mcg/actuation 2 inh inhalation Q6H PRN sob #1 ea 12/07/22 breath activated powder inhaler prednisone 20 mg tablet 40 mg PO DAILY 5 days #10 tabs 12/07/22 acetaminophen 500 mg tablet 1,000 mg PO Q6H PRN fever or pain 12/18/22 (Tylenol Extra Strength) #20 tabs cyclobenzaprine 10 mg tablet 10 mg PO TID PRN pain, muscle 12/18/22 spasm #15 tabs prednisone 20 mg tablet 60 mg PO DAILY 5 days #15 tabs 12/18/22 albuterol sulfate 5 mg/mL(0.5 %) 5 mg inhalation Q4H PRN shortness 12/29/22 solution for nebulization of breath or wheezing #600 mL cyclobenzaprine 10 mg tablet 10 mg PO TID PRN muscle spasm #14 12/29/22 tabs prednisone 10 mg tablets in a dose See Taper PO DAILY #48 ea 12/29/22 pack albuterol sulfate 1.25 mg/3 mL 1.25 mg (3 mL) inhalation Q4-6H 02/12/23 solution for nebulization PRN shortness of breath or wheezing #90 mL Allergies Allergy/AdvReac Type Severity Reaction Status Date / Time shellfish derived Allergy Severe SHORTNESS Verified 11/10/22 01:49 OF BREATH, SWELLING shrimp Allergy Severe ANAPHYLAXIS Verified 11/10/22 01:49 Review of Systems Review of Systems: CONSTITUTIONAL: Denies weight loss, fever and chills. HEENT: Denies changes in vision and hearing. RESPIRATORY: + SOB - cough. CV: Denies palpitations no CP. GI: Denies abdominal pain, nausea, vomiting and diarrhea. : Denies dysuria and urinary frequency. MSK: Denies myalgia and joint pain. SKIN: Denies rash and pruritus. NEUROLOGICAL: Denies headache and syncope. PSYCHIATRIC: Denies recent changes in mood. Denies anxiety and depression. All other ROS are negative unless in HPI PMFSH Past Medical History Medical History Asthma Asthma Pneumonia due to 2019 novel coronavirus Family History Family History Mother Asthma Social History Social History Household Members: None Housing: House Do you presently have visiting nurse or other home services: No Alcohol intake: never Patient Tobacco Use Status: Never used Tobacco Smoked in Last 30 Days: No Use of substances other than those prescribed or required for medical reasons: No Advance Directives: No Advance Directives Information Provided: No service: No Current occupational status: unemployed Physical Exam ED Vital Signs: Vital Signs - 24 hr 02/12/23 03:45 02/12/23 03:58 02/12/23 03:59 Temperature 97.6 F 98 F Pulse Rate 102 H 100 Respiratory Rate 22 H 20 Blood Pressure 145/94 H 140/84 H Pulse Oximetry 92 94 94 Oxygen Delivery Method Room Air Nasal Cannula Nasal Cannula Oxygen Flow Rate 2 02/12/23 04:38 Temperature Pulse Rate 84 Respiratory Rate 18 Blood Pressure Pulse Oximetry Oxygen Delivery Method Oxygen Flow Rate BMI result Body Mass Index 36.6 GEN: Well developed, no acute distress, alert, oriented HEENT: Normocephalic, atraumatic, normal external ears, nose appears normal, no oropharyngeal edema or exudates Eyes: Normal to appearance Neck: Supple, no lymphadenopathy Respiratory: Prolonged expiration with expiratory wheezes Cardiovascular: Regular rate and rhythm, no murmurs rubs or gallops Abdomen: Soft, nontender, nondistended, no guarding, no rebound Back: No CVA tenderness Extremities: No clubbing cyanosis or edema Neurologic: No focal neurologic deficits, cranial nerves 2-12 intact, strength is 5/5 bilaterally Skin: No rash Course Reevaluation(s) Reevaluation #1: Patient has completed 3 DuoNebs. Is doing much better at this time. Will observe him for short period time determine if it is appropriate for to discharge him. Time: 05:25 Reevaluation #2: Patient is feeling much better. Like to be discharged. Still has wheezing and I did offer him additional breathing treatments. He would like to go home and continues management. I will prescribe albuterol inhaler and nebulizers as well as steroids. Time: 06:13 Medications Administered Discontinued Medications Generic Name Dose Route Start Last Admin Trade Name Freq PRN Reason Stop Dose Admin Albuterol Sulfate 7.5 mg/ 0 mg 02/12/23 04:21 02/12/23 04:37 Albuterol/Ipratropium 3 ml INHALE 02/12/23 04:22 10 each ONCE ONE Administration Prednisone 60 mg 02/12/23 04:21 02/12/23 04:34 Prednisone 20 Mg Tablet PO 02/12/23 04:22 60 mg ONCE ONE Administration Medical Decision Making Medical Decision Making MDM Narrative: 28-year-old male presents with what seems to be an asthma exacerbation. Differential diagnosis includes asthma, COPD, viral infection, bronchitis, pneumonia. Patient will have a chest x-ray to rule out acute infiltrative disease. Will provide patient with prednisone and nebulizer treatments and re-evaluate the patient for possible discharge. Differential Diagnosis Differential Diagnoses: The differential diagnosis associated with the presentation includes (See above) Admission/Observation Consideration of admission/observation: Escalation of care including admission/observation considered (Pending clinical improvement) Independent Interpretation I performed an independent interpretation of an: Plain X-Ray (Chest: No acute cardiopulmonary disease) Prescription Management I considered prescription management with: Antibiotic Chronic Conditions Patient?s care impacted by: Other (Asthma) Discharge Plan Discharge Clinical Impression: Asthma with acute exacerbation Patient Disposition: Home, Self-Care Instructions: Asthma (ED), How to Use a Metered-Dose Inhaler (ED), Wheezing (ED) Prescriptions: New albuterol sulfate 1.25 mg/3 mL solution for nebulization 1.25 mg inhalation Q4-6H PRN (Reason: shortness of breath or wheezing) Qty: 90 0RF Continued albuterol sulfate [ProAir HFA] 90 mcg/actuation HFA aerosol inhaler 2 puff inhalation Q4-6H PRN (Reason: Wheezing) Qty: 8.5 0RF prednisone 50 mg tablet 50 mg PO DAILY Qty: 5 0RF No Action prednisone 20 mg tablet 40 mg PO DAILY Qty: 10 0RF prednisone 20 mg tablet 40 mg PO DAILY Qty: 10 0RF albuterol sulfate [ProAir HFA] 90 mcg/actuation HFA aerosol inhaler 2 puff inhalation Q4-6H PRN (Reason: shortness of breath or wheezing) Qty: 8.5 3RF albuterol sulfate 2.5 mg /3 mL (0.083 %) solution for nebulization 2.5 mg inhalation Q4-6H PRN (Reason: shortness of breath or wheezing) Qty: 90 0RF prednisone 50 mg tablet 50 mg PO DAILY 4 Days Qty: 4 0RF fluticasone propion-salmeterol [Advair Diskus] 500-50 mcg/dose blister with device 1 inh inhalation BID Qty: 60 0RF (DME) nebulizer and compressor Device See Rx Instructions .Route Qty: 1 0RF Rx Instructions: As directed albuterol sulfate 90 mcg/actuation HFA aerosol inhaler 2 puff inhalation Q4-6H PRN (Reason: shortness of breath or wheezing) Qty: 8.5 0RF (DME) nebulizers [Aeroneb Go Nebulizer] Misc See Rx Instructions .Route Qty: 1 0RF Rx Instructions: As directed montelukast [Singulair] 10 mg Tablet 10 mg PO DAILY albuterol sulfate 2.5 mg /3 mL (0.083 %) solution for nebulization 2.5 mg inhalation Q4-6H PRN (Reason: shortness of breath or wheezing) Qty: 90 0RF albuterol sulfate 90 mcg/actuation HFA aerosol inhaler 1 inh inhalation QID PRN (Reason: shortness of breath or wheezing) Qty: 8.5 0RF prednisone 20 mg tablet 20 mg PO BID Qty: 10 0RF albuterol sulfate 90 mcg/actuation aerosol powdr breath activated 2 inh inhalation Q4-6H PRN (Reason: shortness of breath or wheezing) Qty: 1 0RF albuterol sulfate 2.5 mg /3 mL (0.083 %) solution for nebulization 2.5 mg inhalation Q6H Qty: 75 0RF prednisone 20 mg tablet 40 mg PO DAILY 5 Days Qty: 10 0RF albuterol sulfate 90 mcg/actuation HFA aerosol inhaler 2 puff inhalation Q4-6H PRN (Reason: shortness of breath or wheezing) Qty: 8.5 1RF pantoprazole [Protonix] 40 mg tablet,delayed release (DR/EC) 40 mg PO DAILY Qty: 30 0RF sucralfate 1 gram tablet 1 g PO BID Qty: 60 0RF albuterol sulfate 5 mg/mL solution for nebulization 5 mg inhalation Q4H PRN (Reason: shortness of breath or wheezing) Qty: 600 0RF prednisone 10 mg tablets,dose pack See Taper PO DAILY Qty: 48 0RF Taper: Prednisone 40 mg daily for 3 Days and 0 Hour 30 mg daily for 3 Days and 0 Hour 20 mg daily for 3 Days and 0 Hour 10 mg daily for 3 Days and 0 Hour albuterol sulfate [Ventolin HFA] 90 mcg/actuation HFA aerosol inhaler 1 inh inhalation QID PRN (Reason: shortness of breath or wheezing) Qty: 8.5 0RF prednisone 10 mg tablets,dose pack See Taper PO DAILY Qty: 48 0RF Taper: Prednisone 40 mg daily for 3 Days and 0 Hour 30 mg daily for 3 Days and 0 Hour 20 mg daily for 3 Days and 0 Hour 10 mg daily for 3 Days and 0 Hour albuterol sulfate 5 mg/mL solution for nebulization 5 mg inhalation Q4H PRN (Reason: shortness of breath or wheezing) Qty: 600 0RF cyclobenzaprine 10 mg tablet 10 mg PO TID PRN (Reason: muscle spasm) Qty: 14 0RF prednisone 20 mg tablet 40 mg PO DAILY 5 Days Qty: 10 0RF albuterol sulfate 90 mcg/actuation aerosol powdr breath activated 2 inh inhalation Q6H PRN (Reason: sob) Qty: 1 0RF albuterol sulfate 2.5 mg /3 mL (0.083 %) solution for nebulization 2.5 mg inhalation Q6H PRN (Reason: shortness of breath or wheezing) Qty: 90 0RF cyclobenzaprine 10 mg tablet 10 mg PO TID PRN (Reason: pain, muscle spasm) Qty: 15 0RF prednisone 20 mg tablet 60 mg PO DAILY 5 Days Qty: 15 0RF acetaminophen [Tylenol Extra Strength] 500 mg tablet 1,000 mg PO Q6H PRN (Reason: fever or pain) Qty: 20 0RF Referrals: Physician,Unknown J [Primary Care Provider] - (Primary care provider)
[2023-02-12 04:38] VITALS: PULSE 84; RESP 18; O2SAT 94
== END 2023-02-12 06:26 | disposition home or self-care (01) ==
PROVIDERS: Emergency Provider Emergency Medicine
DX: J45.901 Unspecified asthma with (acute) exacerbation (principal); R06.02 Shortness of breath; Z79.899 Other long term (current) drug therapy
CPT/HCPCS: 71046; 94640; 99284; 99285

== ENCOUNTER 2023-02-28 01:38 | Emergency (ER) | payer MEDICAID, SELFPAY ==
[2023-02-28 01:42] VITALS: BP 133/70; PULSE 113; RESP 24; TEMP 36.4; O2SAT 92; BMI 36.6
--- NOTE | 2023-02-28 01:51 | ED.ASTHMA ---
HPI - Asthma General Chief Complaint: Asthma Stated Complaint: SOB Time Seen by Provider: 02/28/23 01:50 Source: patient and EMS Mode of arrival: ambulatory Limitations: no limitations History of Present Illness HPI Narrative: few hours of having shortness of breath, took no medications at home complaint: asthma attack and shortness of breath Onset (ago): hour(s) Severity: moderate Related Data Home Medications Medication Instructions Recorded Confirmed montelukast 10 mg tablet 10 mg PO DAILY 04/24/22 04/24/22 (Singulair) Previous Rx's Medication Instructions Recorded fluticasone 500 mcg-salmeterol 50 1 inh inhalation BID #60 ea 07/02/21 mcg/dose blistr powdr for inhalation (Advair Diskus) nebulizer and compressor #1 ea 09/15/21 albuterol sulfate 90 mcg/actuation 2 puff inhalation Q4-6H PRN 04/18/22 aerosol inhaler shortness of breath or wheezing #8.5 grams nebulizers (Aeroneb Go Nebulizer) #1 ea 04/18/22 albuterol sulfate 90 mcg/actuation 2 puff inhalation Q4-6H PRN 05/14/22 aerosol inhaler (ProAir HFA) Wheezing #8.5 grams prednisone 20 mg tablet 40 mg PO DAILY #10 tabs 05/14/22 albuterol sulfate 2.5 mg/3 mL 2.5 mg (3 mL) inhalation Q4-6H PRN 06/24/22 (0.083 %) solution for nebulization shortness of breath or wheezing #90 mL albuterol sulfate 90 mcg/actuation 2 puff inhalation Q4-6H PRN 06/24/22 aerosol inhaler (ProAir HFA) shortness of breath or wheezing #8.5 grams prednisone 20 mg tablet 40 mg PO DAILY #10 tabs 06/24/22 albuterol sulfate 2.5 mg/3 mL 2.5 mg (3 mL) inhalation Q4-6H PRN 08/11/22 (0.083 %) solution for nebulization shortness of breath or wheezing #90 mL albuterol sulfate 90 mcg/actuation 1 inh inhalation QID PRN shortness 08/11/22 aerosol inhaler of breath or wheezing #8.5 grams prednisone 20 mg tablet 20 mg PO BID #10 tabs 08/11/22 prednisone 50 mg tablet 50 mg PO DAILY 4 days #4 tabs 08/15/22 albuterol sulfate 2.5 mg/3 mL 2.5 mg (3 mL) inhalation Q6H #75 mL 08/28/22 (0.083 %) solution for nebulization albuterol sulfate 90 mcg/actuation 2 inh inhalation Q4-6H PRN 08/28/22 breath activated powder inhaler shortness of breath or wheezing #1 ea prednisone 20 mg tablet 40 mg PO DAILY 5 days #10 tabs 08/28/22 albuterol sulfate 90 mcg/actuation 2 puff inhalation Q4-6H PRN 10/26/22 aerosol inhaler shortness of breath or wheezing #8.5 grams prednisone 50 mg tablet 50 mg PO DAILY #5 tabs 10/26/22 pantoprazole 40 mg tablet,delayed 40 mg PO DAILY #30 tabs 11/10/22 release (Protonix) sucralfate 1 gram tablet 1 g PO BID #60 tabs 11/10/22 albuterol sulfate 5 mg/mL(0.5 %) 5 mg inhalation Q4H PRN shortness 11/19/22 solution for nebulization of breath or wheezing #600 mL albuterol sulfate 90 mcg/actuation 1 inh inhalation QID PRN shortness 11/19/22 aerosol inhaler (Ventolin HFA) of breath or wheezing #8.5 grams prednisone 10 mg tablets in a dose See Taper PO DAILY #48 ea 11/19/22 pack albuterol sulfate 2.5 mg/3 mL 2.5 mg (3 mL) inhalation Q6H PRN 12/07/22 (0.083 %) solution for nebulization shortness of breath or wheezing #90 mL albuterol sulfate 90 mcg/actuation 2 inh inhalation Q6H PRN sob #1 ea 12/07/22 breath activated powder inhaler prednisone 20 mg tablet 40 mg PO DAILY 5 days #10 tabs 12/07/22 acetaminophen 500 mg tablet 1,000 mg PO Q6H PRN fever or pain 12/18/22 (Tylenol Extra Strength) #20 tabs cyclobenzaprine 10 mg tablet 10 mg PO TID PRN pain, muscle 12/18/22 spasm #15 tabs prednisone 20 mg tablet 60 mg PO DAILY 5 days #15 tabs 12/18/22 albuterol sulfate 5 mg/mL(0.5 %) 5 mg inhalation Q4H PRN shortness 12/29/22 solution for nebulization of breath or wheezing #600 mL cyclobenzaprine 10 mg tablet 10 mg PO TID PRN muscle spasm #14 12/29/22 tabs prednisone 10 mg tablets in a dose See Taper PO DAILY #48 ea 12/29/22 pack albuterol sulfate 1.25 mg/3 mL 1.25 mg (3 mL) inhalation Q4-6H 02/12/23 solution for nebulization PRN shortness of breath or wheezing #90 mL albuterol sulfate 90 mcg/actuation 2 puff inhalation QID PRN 02/28/23 aerosol inhaler shortness of breath or wheezing #8.5 grams prednisone 20 mg tablet 60 mg PO DAILY #12 tabs 02/28/23 Allergies Allergy/AdvReac Type Severity Reaction Status Date / Time shellfish derived Allergy Severe SHORTNESS Verified 02/28/23 01:42 OF BREATH, SWELLING shrimp Allergy Severe ANAPHYLAXIS Verified 02/28/23 01:42 Review of Systems Review of Systems: Yes all other systems are reviewed and are negative Cardiovascular: Cardiovascular: Reports dyspnea Respiratory: Respiratory: Reports dyspnea and Reports wheezing Neurologic: Denies Sensory deficit (Neuro) Allergic/Immunologic: Allergic/Immunologic: Reports wheezing PMFSH Past Medical History Medical History Asthma Asthma Pneumonia due to 2019 novel coronavirus Family History Family History Mother Asthma Social History Social History Household Members: None Housing: House Do you presently have visiting nurse or other home services: No Alcohol intake: never Patient Tobacco Use Status: Never used Tobacco Advance Directives: No Advance Directives Information Provided: Yes service: No Current occupational status: unemployed Physical Exam Vital Signs: Vital Signs: Last Vital Signs Temp 98.3 F 02/28/23 06:09 Pulse 96 02/28/23 06:09 Resp 16 02/28/23 06:09 BP 141/80 H 02/28/23 06:09 Pulse Ox 98 02/28/23 06:09 O2 Del Method Room Air 02/28/23 06:09 BMI result Body Mass Index 36.6 Const: Other: male appearing uncomfortable, short of breath Nutritional Appearance: average body habitus Orientation/consciousness: oriented to person and patient oriented x3 Limitations: no limitations HEENT: Head: Yes normal to inspection Ears: external ears normal General nose exam: Normal external nose present Mouth: Normal oral and palatal mucosa present and oropharynx normal Throat: Yes posterior oropharynx normal Eyes: General: appearance normal, both eyes and all related structures Neck: Other: supple Neck: Yes normal visual inspection Chest: Chest palpation & inspection: normal inspection of the chest Resp: Other: diffuse wheezing bilaterally Cardio: Jugular venous distension: no JVD Rate: regular rate Rhythm: regular rhythm Heart sounds: S1 normal heart sound present and S2 normal heart sound present GI: Inspection: Yes normal to inspection Palpation (GI): Soft to palpation, nontender and No hepatosplenomegaly present Auscultation: normal bowel sounds : General: Yes no CVA tenderness Back/Spine/Pelvis: Back: no CVA tenderness Skin: General skin exam: no rashes or lesions noted Neuro: General: oriented to person and patient oriented x3 Cranial nerves: Yes CN's II-XII intact bilaterally Motor exam (neuro): 5/5 motor strength present throughout Sensory Exam: No Sensory deficit (Neuro) Extrem: General: Yes normal to inspection Psych: Appearance: grossly normal Course Reevaluation(s) Reevaluation #1: still wheezing will give another treatment and discharge on prednisone and albuterol Time: 06:47 Medications Administered Discontinued Medications Generic Name Dose Route Start Last Admin Trade Name Freq PRN Reason Stop Dose Admin Albuterol/Ipratropium 3 ml 02/28/23 01:52 02/28/23 02:29 Albuterol/Iprat 2.5/0.5mg 3 Ml Ampul.Neb INHALE 02/28/23 01:53 3 ml ONCE ONE Administration Prednisone 60 mg 02/28/23 01:52 02/28/23 02:57 Prednisone 20 Mg Tablet PO 02/28/23 01:53 60 mg ONCE ONE Administration Medical Decision Making Differential Diagnosis Differential Diagnoses: The differential diagnosis associated with the presentation includes (asthma, URI, pneumonia were all considered) Tests considered The following testing was considered but not selected: considered obtaining CXR and bloods but patient appeared to be straight forward asthma Prescription Management I considered prescription management with: Antibiotic (abx considered but patient afebrile and does not have pneumonia) Chronic Conditions Patient?s care impacted by: Other (asthma) Discharge Plan Discharge Clinical Impression: Asthma with status asthmaticus Patient Disposition: Home, Self-Care Instructions: Asthma (ED) Prescriptions: New prednisone 20 mg tablet 60 mg PO DAILY Qty: 12 0RF albuterol sulfate 90 mcg/actuation HFA aerosol inhaler 2 puff inhalation QID PRN (Reason: shortness of breath or wheezing) Qty: 8.5 0RF No Action prednisone 20 mg tablet 40 mg PO DAILY Qty: 10 0RF albuterol sulfate [ProAir HFA] 90 mcg/actuation HFA aerosol inhaler 2 puff inhalation Q4-6H PRN (Reason: Wheezing) Qty: 8.5 0RF prednisone 20 mg tablet 40 mg PO DAILY Qty: 10 0RF albuterol sulfate [ProAir HFA] 90 mcg/actuation HFA aerosol inhaler 2 puff inhalation Q4-6H PRN (Reason: shortness of breath or wheezing) Qty: 8.5 3RF albuterol sulfate 2.5 mg /3 mL (0.083 %) solution for nebulization 2.5 mg inhalation Q4-6H PRN (Reason: shortness of breath or wheezing) Qty: 90 0RF prednisone 50 mg tablet 50 mg PO DAILY 4 Days Qty: 4 0RF fluticasone propion-salmeterol [Advair Diskus] 500-50 mcg/dose blister with device 1 inh inhalation BID Qty: 60 0RF (DME) nebulizer and compressor Device See Rx Instructions .Route Qty: 1 0RF Rx Instructions: As directed albuterol sulfate 90 mcg/actuation HFA aerosol inhaler 2 puff inhalation Q4-6H PRN (Reason: shortness of breath or wheezing) Qty: 8.5 0RF (DME) nebulizers [Aeroneb Go Nebulizer] Misc See Rx Instructions .Route Qty: 1 0RF Rx Instructions: As directed montelukast [Singulair] 10 mg Tablet 10 mg PO DAILY albuterol sulfate 2.5 mg /3 mL (0.083 %) solution for nebulization 2.5 mg inhalation Q4-6H PRN (Reason: shortness of breath or wheezing) Qty: 90 0RF albuterol sulfate 90 mcg/actuation HFA aerosol inhaler 1 inh inhalation QID PRN (Reason: shortness of breath or wheezing) Qty: 8.5 0RF prednisone 20 mg tablet 20 mg PO BID Qty: 10 0RF albuterol sulfate 90 mcg/actuation aerosol powdr breath activated 2 inh inhalation Q4-6H PRN (Reason: shortness of breath or wheezing) Qty: 1 0RF albuterol sulfate 2.5 mg /3 mL (0.083 %) solution for nebulization 2.5 mg inhalation Q6H Qty: 75 0RF prednisone 20 mg tablet 40 mg PO DAILY 5 Days Qty: 10 0RF albuterol sulfate 90 mcg/actuation HFA aerosol inhaler 2 puff inhalation Q4-6H PRN (Reason: shortness of breath or wheezing) Qty: 8.5 1RF prednisone 50 mg tablet 50 mg PO DAILY Qty: 5 0RF pantoprazole [Protonix] 40 mg tablet,delayed release (DR/EC) 40 mg PO DAILY Qty: 30 0RF sucralfate 1 gram tablet 1 g PO BID Qty: 60 0RF albuterol sulfate 5 mg/mL solution for nebulization 5 mg inhalation Q4H PRN (Reason: shortness of breath or wheezing) Qty: 600 0RF prednisone 10 mg tablets,dose pack See Taper PO DAILY Qty: 48 0RF Taper: Prednisone 40 mg daily for 3 Days and 0 Hour 30 mg daily for 3 Days and 0 Hour 20 mg daily for 3 Days and 0 Hour 10 mg daily for 3 Days and 0 Hour albuterol sulfate [Ventolin HFA] 90 mcg/actuation HFA aerosol inhaler 1 inh inhalation QID PRN (Reason: shortness of breath or wheezing) Qty: 8.5 0RF prednisone 10 mg tablets,dose pack See Taper PO DAILY Qty: 48 0RF Taper: Prednisone 40 mg daily for 3 Days and 0 Hour 30 mg daily for 3 Days and 0 Hour 20 mg daily for 3 Days and 0 Hour 10 mg daily for 3 Days and 0 Hour albuterol sulfate 5 mg/mL solution for nebulization 5 mg inhalation Q4H PRN (Reason: shortness of breath or wheezing) Qty: 600 0RF cyclobenzaprine 10 mg tablet 10 mg PO TID PRN (Reason: muscle spasm) Qty: 14 0RF prednisone 20 mg tablet 40 mg PO DAILY 5 Days Qty: 10 0RF albuterol sulfate 90 mcg/actuation aerosol powdr breath activated 2 inh inhalation Q6H PRN (Reason: sob) Qty: 1 0RF albuterol sulfate 2.5 mg /3 mL (0.083 %) solution for nebulization 2.5 mg inhalation Q6H PRN (Reason: shortness of breath or wheezing) Qty: 90 0RF cyclobenzaprine 10 mg tablet 10 mg PO TID PRN (Reason: pain, muscle spasm) Qty: 15 0RF prednisone 20 mg tablet 60 mg PO DAILY 5 Days Qty: 15 0RF acetaminophen [Tylenol Extra Strength] 500 mg tablet 1,000 mg PO Q6H PRN (Reason: fever or pain) Qty: 20 0RF albuterol sulfate 1.25 mg/3 mL solution for nebulization 1.25 mg inhalation Q4-6H PRN (Reason: shortness of breath or wheezing) Qty: 90 0RF Referrals: Physician,Unknown J [Primary Care Provider] - 5 days
[2023-02-28] MEDS: Albuterol/Iprat 2.5/0.5MG 3 ML AMPUL.NEB INHALE (02:29)
[2023-02-28 02:31] VITALS: PULSE 100; RESP 11; O2SAT 99
[2023-02-28 02:55] VITALS: BP 144/72; PULSE 109; RESP 16; TEMP 36.7; O2SAT 92
[2023-02-28] MEDS: predniSONE 20 MG TABLET 60 MG PO (02:57)
[2023-02-28 06:09] VITALS: BP 141/80; PULSE 96; RESP 16; TEMP 36.8; O2SAT 98
[2023-02-28 07:16] VITALS: PULSE 93; RESP 16; O2SAT 98
[2023-02-28] MEDS: Albuterol Sulfate 2.5 MG, Albuterol Sulfate (0.083%) 2.5 MG 5 MG INHALE (07:16)
[2023-02-28 07:30] VITALS: BP 138/68; PULSE 91; RESP 16; TEMP 36.6; O2SAT 96
--- NOTE | 2023-02-28 07:42 | PC.NURSE ---
improvement after breathing treatment
== END 2023-02-28 07:43 | disposition home or self-care (01) ==
PROVIDERS: Emergency Provider Emergency Medicine
DX: J45.909 Unspecified asthma, uncomplicated (principal); R06.02 Shortness of breath; Z79.899 Other long term (current) drug therapy
CPT/HCPCS: 99284

== ENCOUNTER 2023-03-19 03:13 | Emergency (ER) | payer MEDICAID, SELFPAY ==
--- NOTE | ~2023-03-19 | XR_ITS ---
EXAMINATION: XR CHEST CLINICAL INFORMATION: Palpitations and shortness of breath. COMPARISON: 02/12/2023 TECHNIQUE: Frontal view of the chest was obtained. FINDINGS: No significant abnormality is noted involving the heart, lungs, mediastinum, bony thorax or soft tissues. XR/XR chest 1V IMPRESSION: Unremarkable examination.
[2023-03-19 03:23] VITALS: BP 161/95; PULSE 82; RESP 16; TEMP 36.5; BMI 36.6
--- NOTE | 2023-03-19 03:34 | ECG_ITS ---
Test Reason : palpitations sob Blood Pressure : / mmHG Vent. Rate : 090 BPM Atrial Rate : 090 BPM P-R Int : 158 ms QRS Dur : 088 ms QT Int : 334 ms P-R-T Axes : 055 059 068 degrees QTc Int : 408 ms Normal sinus rhythm Normal ECG When compared with ECG of 19-DEC-2022 01:17, Nonspecific T wave abnormality now evident in Lateral leads Referred By: Generic ED Physician Electronically Signed By:ERIKA VILLARREAL
[2023-03-19 03:52] LABS: MANUAL DIFF FLAG NO
[2023-03-19 03:53] LABS: Basophils Absolute Auto 0.1 X10*3/uL (0.0-0.2); Basophils Percent Auto 1.2 % (0-2); Eosinophils Absolute Auto 0.9 X10*3/uL (0.0-0.4); Eosinophils Percent Auto 11.1 % (0-4); Hematocrit 41.5 % (42.0-52.0); Hemoglobin 14.3 g/dl (14.0-18.0); Imm Gran Abs Auto 0.04 X10*3/uL (0.00-0.03); Imm Gran Pct Auto 0.5 % (0.0-0.4); Lymphocytes Absolute Auto 3.3 X10*3/uL (1.2-4.9); Lymphocytes Percent Auto 39.5 % (20-40); Mean Corpuscular HGB Conc 34.5 g/dl (31.0-36.0); Mean Corpuscular Hemoglobin 27.3 pg (27.0-33.0); Mean Corpuscular Volume 79.2 fL (80.0-98.0); Mean Platelet Volume 9.2 fL (9.4-12.4); Monocytes Absolute Auto 0.7 X10*3/uL (0.1-1.2); Monocytes Percent Auto 8.3 % (2-11); Neutrophils Absolute Auto 3.3 x10*3/uL (2.0-8.3); Neutrophils Percent Auto 39.4 % (45-73); Platelet Count 308 X10*3/uL (160-400); Red Blood Count 5.24 X10*6/uL (4.60-5.80); Red Cell Distribution Width 11.8 % (11.0-16.0); White Blood Count 8.3 X10*3/uL (4.8-10.8)
[2023-03-19 04:07] LABS: Anion Gap 15 (12-20); Blood Urea Nitrogen 11 mg/dL (9-16); Calcium 9.1 mg/dL (8.4-10.2); Carbon Dioxide 22 mmol/L (22-29); Chloride 107 mmol/L (96-108); Creatinine Clr Calc Pharmacy 127.3; Estimated Glomerular Filt Rate > 60; Glucose Random 135 mg/dL (60-115); Potassium 3.8 mmol/L (3.3-5.1); Sodium 140 mmol/L (135-145)
[2023-03-19 04:17] LABS: Troponin-I High Sensitivity < 2.7 ng/L (<3.5-35.0)
--- NOTE | 2023-03-19 04:59 | ED_ITS ---
HPI - Arrhythmia/Palpitations General Chief Complaint: Arrhythmia/Palpitations Stated Complaint: heartbeat too fast Time Seen by Provider: 03/19/23 04:48 Source: patient Mode of arrival: ambulatory Limitations: no limitations History of Present Illness HPI narrative: Patient history of asthma been here multiple times comes here for episode of palpitation 01:00 o'clock lasted for few minutes patient took last albuterol nebulized treatment at 20:00 at this time patient feels fine no syncope episode no dizziness no chest pain no fever chills Related Data Home Medications Medication Instructions Recorded Confirmed montelukast 10 mg tablet 10 mg PO DAILY 04/24/22 04/24/22 (Singulair) Previous Rx's Medication Instructions Recorded fluticasone 500 mcg-salmeterol 50 1 inh inhalation BID #60 ea 07/02/21 mcg/dose blistr powdr for inhalation (Advair Diskus) nebulizer and compressor #1 ea 09/15/21 albuterol sulfate 90 mcg/actuation 2 puff inhalation Q4-6H PRN 04/18/22 aerosol inhaler shortness of breath or wheezing #8.5 grams nebulizers (Aeroneb Go Nebulizer) #1 ea 04/18/22 albuterol sulfate 90 mcg/actuation 2 puff inhalation Q4-6H PRN 05/14/22 aerosol inhaler (ProAir HFA) Wheezing #8.5 grams prednisone 20 mg tablet 40 mg PO DAILY #10 tabs 05/14/22 albuterol sulfate 2.5 mg/3 mL 2.5 mg (3 mL) inhalation Q4-6H PRN 06/24/22 (0.083 %) solution for nebulization shortness of breath or wheezing #90 mL albuterol sulfate 90 mcg/actuation 2 puff inhalation Q4-6H PRN 06/24/22 aerosol inhaler (ProAir HFA) shortness of breath or wheezing #8.5 grams prednisone 20 mg tablet 40 mg PO DAILY #10 tabs 06/24/22 albuterol sulfate 2.5 mg/3 mL 2.5 mg (3 mL) inhalation Q4-6H PRN 08/11/22 (0.083 %) solution for nebulization shortness of breath or wheezing #90 mL albuterol sulfate 90 mcg/actuation 1 inh inhalation QID PRN shortness 08/11/22 aerosol inhaler of breath or wheezing #8.5 grams prednisone 20 mg tablet 20 mg PO BID #10 tabs 08/11/22 prednisone 50 mg tablet 50 mg PO DAILY 4 days #4 tabs 08/15/22 albuterol sulfate 2.5 mg/3 mL 2.5 mg (3 mL) inhalation Q6H #75 mL 08/28/22 (0.083 %) solution for nebulization albuterol sulfate 90 mcg/actuation 2 inh inhalation Q4-6H PRN 08/28/22 breath activated powder inhaler shortness of breath or wheezing #1 ea prednisone 20 mg tablet 40 mg PO DAILY 5 days #10 tabs 08/28/22 albuterol sulfate 90 mcg/actuation 2 puff inhalation Q4-6H PRN 10/26/22 aerosol inhaler shortness of breath or wheezing #8.5 grams prednisone 50 mg tablet 50 mg PO DAILY #5 tabs 10/26/22 pantoprazole 40 mg tablet,delayed 40 mg PO DAILY #30 tabs 11/10/22 release (Protonix) sucralfate 1 gram tablet 1 g PO BID #60 tabs 11/10/22 albuterol sulfate 5 mg/mL(0.5 %) 5 mg inhalation Q4H PRN shortness 11/19/22 solution for nebulization of breath or wheezing #600 mL albuterol sulfate 90 mcg/actuation 1 inh inhalation QID PRN shortness 11/19/22 aerosol inhaler (Ventolin HFA) of breath or wheezing #8.5 grams prednisone 10 mg tablets in a dose See Taper PO DAILY #48 ea 11/19/22 pack albuterol sulfate 2.5 mg/3 mL 2.5 mg (3 mL) inhalation Q6H PRN 12/07/22 (0.083 %) solution for nebulization shortness of breath or wheezing #90 mL albuterol sulfate 90 mcg/actuation 2 inh inhalation Q6H PRN sob #1 ea 12/07/22 breath activated powder inhaler prednisone 20 mg tablet 40 mg PO DAILY 5 days #10 tabs 12/07/22 acetaminophen 500 mg tablet 1,000 mg PO Q6H PRN fever or pain 12/18/22 (Tylenol Extra Strength) #20 tabs cyclobenzaprine 10 mg tablet 10 mg PO TID PRN pain, muscle 12/18/22 spasm #15 tabs prednisone 20 mg tablet 60 mg PO DAILY 5 days #15 tabs 12/18/22 albuterol sulfate 5 mg/mL(0.5 %) 5 mg inhalation Q4H PRN shortness 12/29/22 solution for nebulization of breath or wheezing #600 mL cyclobenzaprine 10 mg tablet 10 mg PO TID PRN muscle spasm #14 12/29/22 tabs prednisone 10 mg tablets in a dose See Taper PO DAILY #48 ea 12/29/22 pack albuterol sulfate 1.25 mg/3 mL 1.25 mg (3 mL) inhalation Q4-6H 02/12/23 solution for nebulization PRN shortness of breath or wheezing #90 mL albuterol sulfate 90 mcg/actuation 2 puff inhalation QID PRN 02/28/23 aerosol inhaler shortness of breath or wheezing #8.5 grams prednisone 20 mg tablet 60 mg PO DAILY #12 tabs 02/28/23 Allergies Allergy/AdvReac Type Severity Reaction Status Date / Time shellfish derived Allergy Severe SHORTNESS Verified 02/28/23 01:42 OF BREATH, SWELLING shrimp Allergy Severe ANAPHYLAXIS Verified 02/28/23 01:42 Review of Systems Review of Systems: Yes all other systems are reviewed and are negative PMFSH Past Medical History Medical History Asthma Asthma Pneumonia due to 2019 novel coronavirus Family History Family History Mother Asthma Social History Social History Household Members: None Housing: House Do you presently have visiting nurse or other home services: No Alcohol intake: never Patient Tobacco Use Status: Never used Tobacco Advance Directives: No Advance Directives Information Provided: Yes service: No Current occupational status: unemployed Physical Exam Vital Signs: Vital Signs: Last Vital Signs Temp 97.7 F 03/19/23 03:23 Pulse 82 03/19/23 03:23 Resp 16 03/19/23 03:23 BP 161/95 H 03/19/23 03:23 O2 Del Method Room Air 03/19/23 03:23 BMI result Body Mass Index 36.6 Appearance: Alert. Oriented X3. No acute distress. Eyes: PERRLA, No Nystagmus ENT: Pharynx normal. Oral Mucosa moist Neck: Normal inspection. Neck supple. CVS: Normal heart rate and rhythm. Pulses normal. Respiratory: No respiratory distress. Equal air entry bilateral, no wheezing/rales/rhonchi Abdomen: Soft and nontender. Bowel sounds are present, no mass palpable, no CVA tenderness Skin: Skin warm and dry. Normal skin color. Normal skin turgor. Extremities: No lower extremity edema. No calf tenderness Neuro: Oriented X 3. No motor deficit. No sensory deficit.No cerebellar signs , cranial nerves II-XII intact Medical Decision Making Medical Decision Making MDM Narrative: Likely patient had a short run of SVT at this time labs are stable heart rate in 77 will discharge patient home advised to report to the ER if recurrent symptoms Differential Diagnosis Differential Diagnoses: The differential diagnosis associated with the presentation includes SVT/AFib/sinus tachycardia/PACs Lab Data MDM Lab Attestation statement: I reviewed the patient's lab results. 03/19/23 03:47 03/19/23 03:47 Labs: Lab Results 03/19/23 03/19/23 03/19/23 Range/Units 03:47 03:47 03:47 WBC 8.3 (4.8-10.8) X10*3/uL RBC 5.24 (4.60-5.80) X10*6/uL Hgb 14.3 (14.0-18.0) g/dl Hct 41.5 L (42.0-52.0) % MCV 79.2 L (80.0-98.0) fL MCH 27.3 (27.0-33.0) pg MCHC 34.5 (31.0-36.0) g/dl RDW 11.8 (11.0-16.0) % Plt Count 308 (160-400) X10*3/uL MPV 9.2 L (9.4-12.4) fL Immature Gran % (Auto) 0.5 H (0.0-0.4) % Neut % (Auto) 39.4 L (45-73) % Lymph % (Auto) 39.5 (20-40) % [place] % (Auto) 8.3 (2-11) % Eos % (Auto) 11.1 H (0-4) % Baso % (Auto) 1.2 (0-2) % Lymph # (Auto) 3.3 (1.2-4.9) X10*3/uL [place] # (Auto) 0.7 (0.1-1.2) X10*3/uL Eos # (Auto) 0.9 H (0.0-0.4) X10*3/uL Baso # (Auto) 0.1 (0.0-0.2) X10*3/uL Abs Immat Gran (auto) 0.04 H (0.00-0.03) X10*3/uL Absolute Neuts (auto) 3.3 (2.0-8.3) x10*3/uL Absolute Nucleated RBC 0.000 (0.0-0.012) X10*3/uL Nucleated RBC % (auto) 0.0 (0.0-0.2) /100WBC Sodium 140 (135-145) mmol/L Potassium 3.8 (3.3-5.1) mmol/L Chloride 107 (96-108) mmol/L Carbon Dioxide 22 (22-29) mmol/L Anion Gap 15 (12-20) BUN 11 (9-16) mg/dL Creatinine 0.93 (0.5-1.4) mg/dL Estim Creat Clear Calc 127.3 Estimated GFR > 60 Random Glucose 135 H (60-115) mg/dL Calcium 9.1 (8.4-10.2) mg/dL Troponin I High Sens < 2.7 (<3.5-35.0) ng/L Independent Interpretation I performed an independent interpretation of an: EKG Interpretation: Normal sinus rhythm heart rate 81 beats per minute normal interval normal axis no acute ST T wave changes Discharge Plan Discharge Clinical Impression: Palpitations Patient Disposition: Home, Self-Care Instructions: Heart Palpitations (ED) Additional Instructions: Likely you had sinus tachycardia Report to the ER if palpitation persist/syncope episode Prescriptions: No Action prednisone 20 mg tablet 40 mg PO DAILY Qty: 10 0RF albuterol sulfate [ProAir HFA] 90 mcg/actuation HFA aerosol inhaler 2 puff inhalation Q4-6H PRN (Reason: Wheezing) Qty: 8.5 0RF prednisone 20 mg tablet 40 mg PO DAILY Qty: 10 0RF albuterol sulfate [ProAir HFA] 90 mcg/actuation HFA aerosol inhaler 2 puff inhalation Q4-6H PRN (Reason: shortness of breath or wheezing) Qty: 8.5 3RF albuterol sulfate 2.5 mg /3 mL (0.083 %) solution for nebulization 2.5 mg inhalation Q4-6H PRN (Reason: shortness of breath or wheezing) Qty: 90 0RF prednisone 50 mg tablet 50 mg PO DAILY 4 Days Qty: 4 0RF fluticasone propion-salmeterol [Advair Diskus] 500-50 mcg/dose blister with device 1 inh inhalation BID Qty: 60 0RF (DME) nebulizer and compressor Device See Rx Instructions .Route Qty: 1 0RF Rx Instructions: As directed albuterol sulfate 90 mcg/actuation HFA aerosol inhaler 2 puff inhalation Q4-6H PRN (Reason: shortness of breath or wheezing) Qty: 8.5 0RF (DME) nebulizers [Aeroneb Go Nebulizer] Misc See Rx Instructions .Route Qty: 1 0RF Rx Instructions: As directed montelukast [Singulair] 10 mg Tablet 10 mg PO DAILY albuterol sulfate 2.5 mg /3 mL (0.083 %) solution for nebulization 2.5 mg inhalation Q4-6H PRN (Reason: shortness of breath or wheezing) Qty: 90 0RF albuterol sulfate 90 mcg/actuation HFA aerosol inhaler 1 inh inhalation QID PRN (Reason: shortness of breath or wheezing) Qty: 8.5 0RF prednisone 20 mg tablet 20 mg PO BID Qty: 10 0RF albuterol sulfate 90 mcg/actuation aerosol powdr breath activated 2 inh inhalation Q4-6H PRN (Reason: shortness of breath or wheezing) Qty: 1 0RF albuterol sulfate 2.5 mg /3 mL (0.083 %) solution for nebulization 2.5 mg inhalation Q6H Qty: 75 0RF prednisone 20 mg tablet 40 mg PO DAILY 5 Days Qty: 10 0RF albuterol sulfate 90 mcg/actuation HFA aerosol inhaler 2 puff inhalation Q4-6H PRN (Reason: shortness of breath or wheezing) Qty: 8.5 1RF prednisone 50 mg tablet 50 mg PO DAILY Qty: 5 0RF pantoprazole [Protonix] 40 mg tablet,delayed release (DR/EC) 40 mg PO DAILY Qty: 30 0RF sucralfate 1 gram tablet 1 g PO BID Qty: 60 0RF albuterol sulfate 5 mg/mL solution for nebulization 5 mg inhalation Q4H PRN (Reason: shortness of breath or wheezing) Qty: 600 0RF prednisone 10 mg tablets,dose pack See Taper PO DAILY Qty: 48 0RF Taper: Prednisone 40 mg daily for 3 Days and 0 Hour 30 mg daily for 3 Days and 0 Hour 20 mg daily for 3 Days and 0 Hour 10 mg daily for 3 Days and 0 Hour albuterol sulfate [Ventolin HFA] 90 mcg/actuation HFA aerosol inhaler 1 inh inhalation QID PRN (Reason: shortness of breath or wheezing) Qty: 8.5 0RF prednisone 10 mg tablets,dose pack See Taper PO DAILY Qty: 48 0RF Taper: Prednisone 40 mg daily for 3 Days and 0 Hour 30 mg daily for 3 Days and 0 Hour 20 mg daily for 3 Days and 0 Hour 10 mg daily for 3 Days and 0 Hour albuterol sulfate 5 mg/mL solution for nebulization 5 mg inhalation Q4H PRN (Reason: shortness of breath or wheezing) Qty: 600 0RF cyclobenzaprine 10 mg tablet 10 mg PO TID PRN (Reason: muscle spasm) Qty: 14 0RF prednisone 20 mg tablet 40 mg PO DAILY 5 Days Qty: 10 0RF albuterol sulfate 90 mcg/actuation aerosol powdr breath activated 2 inh inhalation Q6H PRN (Reason: sob) Qty: 1 0RF albuterol sulfate 2.5 mg /3 mL (0.083 %) solution for nebulization 2.5 mg inhalation Q6H PRN (Reason: shortness of breath or wheezing) Qty: 90 0RF cyclobenzaprine 10 mg tablet 10 mg PO TID PRN (Reason: pain, muscle spasm) Qty: 15 0RF prednisone 20 mg tablet 60 mg PO DAILY 5 Days Qty: 15 0RF acetaminophen [Tylenol Extra Strength] 500 mg tablet 1,000 mg PO Q6H PRN (Reason: fever or pain) Qty: 20 0RF albuterol sulfate 1.25 mg/3 mL solution for nebulization 1.25 mg inhalation Q4-6H PRN (Reason: shortness of breath or wheezing) Qty: 90 0RF prednisone 20 mg tablet 60 mg PO DAILY Qty: 12 0RF albuterol sulfate 90 mcg/actuation HFA aerosol inhaler 2 puff inhalation QID PRN (Reason: shortness of breath or wheezing) Qty: 8.5 0RF
== END 2023-03-19 05:12 | disposition home or self-care (01) ==
PROVIDERS: Emergency Provider Internal Medicine
DX: R00.2 Palpitations (principal); I49.9 Cardiac arrhythmia, unspecified; Z79.899 Other long term (current) drug therapy
CPT/HCPCS: 36415; 71045; 80048; 84484; 85025; 93005; 99283

== ENCOUNTER → 2023-03-19 03:34 | Outpatient (BNV) | payer MEDICAID, SELFPAY | PROVIDERS: Emergency Provider Internal Medicine; Visit Provider Internal Medicine | DX: R00.2 Palpitations (principal); R06.02 Shortness of breath | CPT/HCPCS: 93010 ==

== ENCOUNTER 2023-08-01 10:51 | Emergency (ER) | payer MEDICAID, SELFPAY ==
--- NOTE | ~2023-08-01 | XR_ITS ---
EXAMINATION: XR CHEST CLINICAL INFORMATION: Difficulty breathing. COMPARISON: 03/19/2023. TECHNIQUE: Frontal view of the chest was obtained. FINDINGS: The cardiomediastinal silhouette is within normal limits and stable. There appears to be peribronchial thickening and mild perihilar increased markings. There is no focal lung consolidation or pleural effusion. The bony structures and soft tissues are unremarkable. XR/XR chest 1V IMPRESSION: Apparent bronchial thickening and perihilar increased markings. Consider bronchitis. There is no focal lung consolidation or evidence for significant pleural effusion.
[2023-08-01 10:52] VITALS: BP 152/93; PULSE 126; RESP 16; TEMP 36.7; O2SAT 92; BMI 36.6
--- NOTE | 2023-08-01 10:57 | ECG_ITS ---
Test Reason : DYSPNEA Blood Pressure : / mmHG Vent. Rate : 124 BPM Atrial Rate : 124 BPM P-R Int : 132 ms QRS Dur : 088 ms QT Int : 296 ms P-R-T Axes : 066 073 059 degrees QTc Int : 425 ms Sinus tachycardia Otherwise normal ECG When compared with ECG of 19-MAR-2023 03:41, No significant change was found Referred By: Generic ED Physician Electronically Signed By:HUSEYIN DORANTES MD
[2023-08-01 11:22] LABS: MANUAL DIFF FLAG NO
[2023-08-01 11:23] LABS: Basophils Absolute Auto 0.1 X10*3/uL (0.0-0.2); Basophils Percent Auto 1.2 % (0-2); Eosinophils Absolute Auto 0.9 X10*3/uL (0.0-0.4); Eosinophils Percent Auto 9.7 % (0-4); Hemoglobin 14.3 g/dl (14.0-18.0); Imm Gran Abs Auto 0.04 X10*3/uL (0.00-0.03); Imm Gran Pct Auto 0.4 % (0.0-0.4); Lymphocytes Absolute Auto 1.4 X10*3/uL (1.2-4.9); Lymphocytes Percent Auto 15.7 % (20-40); Mean Corpuscular HGB Conc 34.9 g/dl (31.0-36.0); Mean Corpuscular Hemoglobin 27.6 pg (27.0-33.0); Mean Platelet Volume 9.4 fL (9.4-12.4); Monocytes Absolute Auto 0.7 X10*3/uL (0.1-1.2); Monocytes Percent Auto 7.8 % (2-11); Neutrophils Absolute Auto 5.9 x10*3/uL (2.0-8.3); Neutrophils Percent Auto 65.2 % (45-73); Platelet Count 265 X10*3/uL (160-400); Red Blood Count 5.19 X10*6/uL (4.60-5.80); White Blood Count 9.1 X10*3/uL (4.8-10.8)
[2023-08-01] MEDS: Albuterol Sulfate 5 MG, Albuterol/Iprat 2.5/0.5MG 3 ML 3 ML INHALE (11:24)
[2023-08-01 11:25] VITALS: PULSE 122; RESP 16; O2SAT 95
[2023-08-01] MEDS: methylPREDNISolone Sod Succ 125 MG/2 ML VIAL IVPUSH (11:40)
[2023-08-01] MEDS: Magnesium Sulfate/H2O 2 GM/50 ML PIGGYBACK IV (11:40)
[2023-08-01 11:41] LABS: Anion Gap 14 (12-20); Blood Urea Nitrogen 9 mg/dL (9-16); Calcium 8.7 mg/dL (8.4-10.2); Carbon Dioxide 21 mmol/L (22-29); Chloride 106 mmol/L (96-108); Creatinine Clr Calc Pharmacy 153.7; Estimated Glomerular Filt Rate > 60; Glucose Random 143 mg/dL (60-115); Potassium 3.7 mmol/L (3.3-5.1); Sodium 137 mmol/L (135-145)
[2023-08-01 11:44] LABS: COVID-19 Test Negative (Negative); IDNOW Serial# BCCEAD1C
[2023-08-01 11:50] LABS: Troponin-I High Sensitivity < 2.7 ng/L (<3.5-35.0)
--- NOTE | 2023-08-01 12:20 | ED.GENADULT ---
HPI - General Adult General Chief complaint: Dyspnea Stated complaint: asthma Time Seen by Provider: 08/01/23 11:13 Source: patient Mode of arrival: ambulatory Limitations: no limitations History of Present Illness HPI narrative: 28-year-old male history of asthma presenting to the emergency department complaints of shortness of breath since this morning, shortness of breath started suddenly, he reports he started having wheezing associated with shortness of breath, worsening ever since. Patient has taken multiple treatments as well as albuterol inhalers with little to no relief. He is reporting some shortness of breath worse with exertion. No chest pain, fevers, chills, nausea, vomiting, abdominal pain, headache, vision changes, dizziness and weakness. Related Data Home Medications Medication Instructions Recorded Confirmed montelukast 10 mg tablet 10 mg PO DAILY 04/24/22 04/24/22 (Singulair) Previous Rx's Medication Instructions Recorded fluticasone 500 mcg-salmeterol 50 1 inh inhalation BID #60 ea 07/02/21 mcg/dose blistr powdr for inhalation (Advair Diskus) nebulizer and compressor #1 ea 09/15/21 albuterol sulfate 90 mcg/actuation 2 puff inhalation Q4-6H PRN 04/18/22 aerosol inhaler shortness of breath or wheezing #8.5 grams nebulizers (Aeroneb Go Nebulizer) #1 ea 04/18/22 albuterol sulfate 90 mcg/actuation 2 puff inhalation Q4-6H PRN 05/14/22 aerosol inhaler (ProAir HFA) Wheezing #8.5 grams prednisone 20 mg tablet 40 mg (2 x 20 mg) PO DAILY #10 tabs 05/14/22 albuterol sulfate 2.5 mg/3 mL 2.5 mg (3 mL) inhalation Q4-6H PRN 06/24/22 (0.083 %) solution for nebulization shortness of breath or wheezing #90 mL albuterol sulfate 90 mcg/actuation 2 puff inhalation Q4-6H PRN 06/24/22 aerosol inhaler (ProAir HFA) shortness of breath or wheezing #8.5 grams prednisone 20 mg tablet 40 mg (2 x 20 mg) PO DAILY #10 tabs 06/24/22 albuterol sulfate 2.5 mg/3 mL 2.5 mg (3 mL) inhalation Q4-6H PRN 08/11/22 (0.083 %) solution for nebulization shortness of breath or wheezing #90 mL albuterol sulfate 90 mcg/actuation 1 inh inhalation QID PRN shortness 08/11/22 aerosol inhaler of breath or wheezing #8.5 grams prednisone 20 mg tablet 20 mg PO BID #10 tabs 08/11/22 prednisone 50 mg tablet 50 mg PO DAILY 4 days #4 tabs 08/15/22 albuterol sulfate 2.5 mg/3 mL 2.5 mg (3 mL) inhalation Q6H #75 mL 08/28/22 (0.083 %) solution for nebulization albuterol sulfate 90 mcg/actuation 2 inh inhalation Q4-6H PRN 08/28/22 breath activated powder inhaler shortness of breath or wheezing #1 ea prednisone 20 mg tablet 40 mg (2 x 20 mg) PO DAILY 5 days 08/28/22 #10 tabs albuterol sulfate 90 mcg/actuation 2 puff inhalation Q4-6H PRN 10/26/22 aerosol inhaler shortness of breath or wheezing #8.5 grams prednisone 50 mg tablet 50 mg PO DAILY #5 tabs 10/26/22 pantoprazole 40 mg tablet,delayed 40 mg PO DAILY #30 tabs 11/10/22 release (Protonix) sucralfate 1 gram tablet 1 g PO BID #60 tabs 11/10/22 albuterol sulfate 5 mg/mL(0.5 %) 5 mg inhalation Q4H PRN shortness 11/19/22 solution for nebulization of breath or wheezing #600 mL albuterol sulfate 90 mcg/actuation 1 inh inhalation QID PRN shortness 11/19/22 aerosol inhaler (Ventolin HFA) of breath or wheezing #8.5 grams prednisone 10 mg tablets in a dose See Taper PO DAILY #48 ea 11/19/22 pack albuterol sulfate 2.5 mg/3 mL 2.5 mg (3 mL) inhalation Q6H PRN 12/07/22 (0.083 %) solution for nebulization shortness of breath or wheezing #90 mL albuterol sulfate 90 mcg/actuation 2 inh inhalation Q6H PRN sob #1 ea 12/07/22 breath activated powder inhaler prednisone 20 mg tablet 40 mg (2 x 20 mg) PO DAILY 5 days 12/07/22 #10 tabs acetaminophen 500 mg tablet 1,000 mg (2 x 500 mg) PO Q6H PRN 12/18/22 (Tylenol Extra Strength) fever or pain #20 tabs cyclobenzaprine 10 mg tablet 10 mg PO TID PRN pain, muscle 12/18/22 spasm #15 tabs prednisone 20 mg tablet 60 mg (3 x 20 mg) PO DAILY 5 days 12/18/22 #15 tabs albuterol sulfate 5 mg/mL(0.5 %) 5 mg inhalation Q4H PRN shortness 12/29/22 solution for nebulization of breath or wheezing #600 mL cyclobenzaprine 10 mg tablet 10 mg PO TID PRN muscle spasm #14 12/29/22 tabs prednisone 10 mg tablets in a dose See Taper PO DAILY #48 ea 12/29/22 pack albuterol sulfate 1.25 mg/3 mL 1.25 mg (3 mL) inhalation Q4-6H 02/12/23 solution for nebulization PRN shortness of breath or wheezing #90 mL albuterol sulfate 90 mcg/actuation 2 puff inhalation QID PRN 02/28/23 aerosol inhaler shortness of breath or wheezing #8.5 grams prednisone 20 mg tablet 60 mg (3 x 20 mg) PO DAILY #12 tabs 02/28/23 albuterol sulfate 2.5 mg/3 mL 2.5 mg (3 mL) inhalation Q6H #75 mL 08/01/23 (0.083 %) solution for nebulization albuterol sulfate 90 mcg/actuation 2 inh inhalation Q4-6H PRN 08/01/23 breath activated powder inhaler shortness of breath or wheezing #1 ea doxycycline hyclate 100 mg capsule 100 mg PO BID 10 days #20 caps 08/01/23 prednisone 50 mg tablet 50 mg PO DAILY 5 days #5 tabs 08/01/23 Allergies Allergy/AdvReac Type Severity Reaction Status Date / Time shellfish derived Allergy Severe SHORTNESS Verified 02/28/23 01:42 OF BREATH, SWELLING shrimp Allergy Severe ANAPHYLAXIS Verified 02/28/23 01:42 Review of Systems Review of Systems: Constitutional : No Weight loss, No Fever, No Chills, No Fatigue, No Malaise ENT/Mouth : No sore throat, No Rhinorrhea Eyes: No Eye Pain, No Swelling, No Redness Cardiovascular : No Chest Pain, + SOB, No Dyspnea on Exertion, No Orthopnea, No Edema, No Palpitations Respiratory : No Cough, No Sputum, + Wheezing Gastrointestinal : No Nausea, No Vomiting, No Diarrhea, No Constipation, No abdominal Pain, No Hematochezia, No Melena Genitourinary : No Dysuria, No Urinary Frequency, No Hematuria, Musculoskeletal : No joint pain, No Myalgias, No Joint Swelling Skin : No Skin Lesions, No rash Neuro : No Weakness, No Numbness, No Dizziness, No Headache Psych : No Anxiety/Panic, No Depression All other systems reviewed and are negative Yes all other systems are reviewed and are negative [facility] Past Medical History Attestation statement: The following information was validated with the patient. Source: old records reviewed and nursing notes reviewed Medical History Asthma Pneumonia due to 2019 novel coronavirus Asthma Family History Family History Mother Asthma Social History Social History Household Members: None Housing: House Do you presently have visiting nurse or other home services: No Alcohol intake: never Patient Tobacco Use Status: Never used Tobacco Advance Directives: No service: No Current occupational status: unemployed Physical Exam ED Vital Signs: Vital Signs - 24 hr 08/01/23 10:52 08/01/23 11:25 08/01/23 12:44 Temperature 98.0 F 99.0 F Pulse Rate 126 H 122 H 128 H Respiratory Rate 16 16 24 H Blood Pressure 152/93 H Pulse Oximetry 92 94 Oxygen Delivery Method Room Air Room Air BMI result Body Mass Index 36.6 92% on room air. Appearance: Alert.? Oriented X3.? No acute distress.? Speaking in full sentences controlling secretions well. No use of accessory muscles Head: Normocephalic, atraumatic, no step-offs or deformities Eyes: Pupils equal, round and reactive to light.? ENT: Pharynx normal.? Neck: Normal inspection.? Neck supple.? CVS: Normal heart rate and rhythm.? Pulses normal.? Respiratory: No respiratory distress.? Breath sounds expiratory wheezing bilaterally..? Abdomen: Soft and nontender.? Skin: Skin warm and dry.? Normal skin color.? Normal skin turgor.? Extremities: No lower extremity edema.? No calf ttp. 5/5 strength to bilateral upper and lower extremities Neuro: Oriented X 3.? No motor deficit.? No sensory deficit. CN 2-12 intact Course Reevaluation(s) Reevaluation #1: X-ray with apparent bronchial thickening and perihilar increased markings. Patient has gotten a few treatments here. Patient told nurse that he had to leave, nurse took his IV out, he had an emergency with a child at home. Despite this will send patient home with steroids, inhaler, antibiotics due to x-ray findings consistent with bronchitis. Patient was saturating 94-95% prior to leaving. When I went to go discussed results with patient patient had already left according to nurse again and due to family emergency. Patient eloped from the department. Nurse did verbalize risks of leaving without completing treatment he verbalized understanding. Time: 13:48 Medications Administered Discontinued Medications Generic Name Dose Route Start Last Admin Trade Name Darius PRN Reason Stop Dose Admin Albuterol Sulfate 5 mg/ 0 mg 08/01/23 11:22 08/01/23 11:24 Albuterol/Ipratropium 3 ml INHALE 08/01/23 11:23 1 each ONCE ONE Administration Magnesium Sulfate 2 gm in 50 mls @ 25 mls/hr 08/01/23 11:13 08/01/23 11:40 Magnesium Sulfate/H2o IV 08/01/23 13:12 25 mls/hr ONCE ONE Administration Methylprednisolone Sodium Succinate 125 mg 08/01/23 11:13 08/01/23 11:40 Methylprednisolone Sod Succ 125 Mg/2 Ml Vial IVPUSH 08/01/23 11:14 125 mg ONCE ONE Administration Medical Decision Making Medical Decision Making MDM Narrative: 28-year-old male presents with shortness of breath and wheezing since this morning tried multiple treatments at home without relief has also been using his rescue inhaler Physical exam with expiratory wheezing bilaterally. Speaking full sentences controlling secretions well no intracostal muscles use for breathing. 92% on room air when he got here History and physical exam concerning for viral illness versus acute asthma exacerbation. Low suspicion for pulmonary embolism, pneumonia, ACS, acute respiratory distress Plan at this time labs, x-ray, viral test. Differential Diagnosis Differential Diagnoses: The differential diagnosis associated with the presentation includes History and physical exam concerning for viral illness versus acute asthma exacerbation. Low suspicion for pulmonary embolism, pneumonia, ACS, acute respiratory distress Admission/Observation Consideration of admission/observation: Escalation of care including admission/observation considered possible Lab Data MDM Lab Attestation statement: I reviewed the patient's lab results. 08/01/23 11:17 08/01/23 11:17 Labs: Lab Results 08/01/23 Range/Units 11:17 WBC 9.1 (4.8-10.8) X10*3/uL RBC 5.19 (4.60-5.80) X10*6/uL Hgb 14.3 (14.0-18.0) g/dl Hct 41.0 L (42.0-52.0) % MCV 79.0 L (80.0-98.0) fL MCH 27.6 (27.0-33.0) pg MCHC 34.9 (31.0-36.0) g/dl RDW 12.0 (11.0-16.0) % Plt Count 265 (160-400) X10*3/uL MPV 9.4 (9.4-12.4) fL Immature Gran % (Auto) 0.4 (0.0-0.4) % Neut % (Auto) 65.2 (45-73) % Lymph % (Auto) 15.7 L (20-40) % Liberty % (Auto) 7.8 (2-11) % Eos % (Auto) 9.7 H (0-4) % Baso % (Auto) 1.2 (0-2) % Lymph # (Auto) 1.4 (1.2-4.9) X10*3/uL Liberty # (Auto) 0.7 (0.1-1.2) X10*3/uL Eos # (Auto) 0.9 H (0.0-0.4) X10*3/uL Baso # (Auto) 0.1 (0.0-0.2) X10*3/uL Abs Immat Gran (auto) 0.04 H (0.00-0.03) X10*3/uL Absolute Neuts (auto) 5.9 (2.0-8.3) x10*3/uL Absolute Nucleated RBC 0.000 (0.0-0.012) X10*3/uL Nucleated RBC % (auto) 0.0 (0.0-0.2) /100WBC Sodium 137 (135-145) mmol/L Potassium 3.7 (3.3-5.1) mmol/L Chloride 106 (96-108) mmol/L Carbon Dioxide 21 L (22-29) mmol/L Anion Gap 14 (12-20) BUN 9 (9-16) mg/dL Creatinine 0.77 (0.5-1.4) mg/dL Estim Creat Clear Calc 153.7 Estimated GFR > 60 Random Glucose 143 H (60-115) mg/dL Calcium 8.7 (8.4-10.2) mg/dL Troponin I High Sens < 2.7 (<3.5-35.0) ng/L COVID-19 ([facility]) Negative (Negative) COVID-19 Clin Com See Note Independent Interpretation I performed an independent interpretation of an: Plain X-Ray (XR/XR chest 1V IMPRESSION: Apparent bronchial thickening and perihilar increased markings. Consider bronchitis. There is no focal lung consolidation or evidence for significant pleural effusion. ) Radiology Impression Discussion of test interpretation with radiology: I have reviewed the radiologist's reading. Discharge Plan Discharge Clinical Impression: Asthma, Eloped from emergency department Patient Disposition: Home, Self-Care Instructions: Asthma (ED) Additional Instructions: Take your medications as prescribed. If you were prescribed antibiotics today, it is important that you take your medication to their entirety, do not skip any doses, do not finish them early. Follow-up with your primary care provider this week. Return to the emergency department with new or worsening symptoms. Such as fevers, chills, chest pain, shortness of breath, nausea, vomiting, dizziness, headache, vision changes, lethargy In case of emergency call 911 Prescriptions: New albuterol sulfate 2.5 mg /3 mL (0.083 %) solution for nebulization 2.5 mg inhalation Q6H Qty: 75 0RF albuterol sulfate 90 mcg/actuation aerosol powdr breath activated 2 inh inhalation Q4-6H PRN (Reason: shortness of breath or wheezing) Qty: 1 0RF prednisone 50 mg tablet 50 mg PO DAILY 5 Days Qty: 5 0RF doxycycline hyclate 100 mg capsule 100 mg PO BID 10 Days Qty: 20 0RF No Action prednisone 20 mg tablet 40 mg PO DAILY Qty: 10 0RF albuterol sulfate [ProAir HFA] 90 mcg/actuation HFA aerosol inhaler 2 puff inhalation Q4-6H PRN (Reason: Wheezing) Qty: 8.5 0RF prednisone 20 mg tablet 40 mg PO DAILY Qty: 10 0RF albuterol sulfate [ProAir HFA] 90 mcg/actuation HFA aerosol inhaler 2 puff inhalation Q4-6H PRN (Reason: shortness of breath or wheezing) Qty: 8.5 3RF albuterol sulfate 2.5 mg /3 mL (0.083 %) solution for nebulization 2.5 mg inhalation Q4-6H PRN (Reason: shortness of breath or wheezing) Qty: 90 0RF prednisone 50 mg tablet 50 mg PO DAILY 4 Days Qty: 4 0RF fluticasone propion-salmeterol [Advair Diskus] 500-50 mcg/dose blister with device 1 inh inhalation BID Qty: 60 0RF (DME) nebulizer and compressor Device See Rx Instructions .Route Qty: 1 0RF Rx Instructions: As directed albuterol sulfate 90 mcg/actuation HFA aerosol inhaler 2 puff inhalation Q4-6H PRN (Reason: shortness of breath or wheezing) Qty: 8.5 0RF (DME) nebulizers [Aeroneb Go Nebulizer] Misc See Rx Instructions .Route Qty: 1 0RF Rx Instructions: As directed montelukast [Singulair] 10 mg Tablet 10 mg PO DAILY albuterol sulfate 2.5 mg /3 mL (0.083 %) solution for nebulization 2.5 mg inhalation Q4-6H PRN (Reason: shortness of breath or wheezing) Qty: 90 0RF albuterol sulfate 90 mcg/actuation HFA aerosol inhaler 1 inh inhalation QID PRN (Reason: shortness of breath or wheezing) Qty: 8.5 0RF prednisone 20 mg tablet 20 mg PO BID Qty: 10 0RF albuterol sulfate 90 mcg/actuation aerosol powdr breath activated 2 inh inhalation Q4-6H PRN (Reason: shortness of breath or wheezing) Qty: 1 0RF albuterol sulfate 2.5 mg /3 mL (0.083 %) solution for nebulization 2.5 mg inhalation Q6H Qty: 75 0RF prednisone 20 mg tablet 40 mg PO DAILY 5 Days Qty: 10 0RF albuterol sulfate 90 mcg/actuation HFA aerosol inhaler 2 puff inhalation Q4-6H PRN (Reason: shortness of breath or wheezing) Qty: 8.5 1RF prednisone 50 mg tablet 50 mg PO DAILY Qty: 5 0RF pantoprazole [Protonix] 40 mg tablet,delayed release (DR/EC) 40 mg PO DAILY Qty: 30 0RF sucralfate 1 gram tablet 1 g PO BID Qty: 60 0RF albuterol sulfate 5 mg/mL solution for nebulization 5 mg inhalation Q4H PRN (Reason: shortness of breath or wheezing) Qty: 600 0RF prednisone 10 mg tablets,dose pack See Taper PO DAILY Qty: 48 0RF Taper: Prednisone 40 mg daily for 3 Days and 0 Hour 30 mg daily for 3 Days and 0 Hour 20 mg daily for 3 Days and 0 Hour 10 mg daily for 3 Days and 0 Hour albuterol sulfate [Ventolin HFA] 90 mcg/actuation HFA aerosol inhaler 1 inh inhalation QID PRN (Reason: shortness of breath or wheezing) Qty: 8.5 0RF prednisone 10 mg tablets,dose pack See Taper PO DAILY Qty: 48 0RF Taper: Prednisone 40 mg daily for 3 Days and 0 Hour 30 mg daily for 3 Days and 0 Hour 20 mg daily for 3 Days and 0 Hour 10 mg daily for 3 Days and 0 Hour albuterol sulfate 5 mg/mL solution for nebulization 5 mg inhalation Q4H PRN (Reason: shortness of breath or wheezing) Qty: 600 0RF cyclobenzaprine 10 mg tablet 10 mg PO TID PRN (Reason: muscle spasm) Qty: 14 0RF prednisone 20 mg tablet 40 mg PO DAILY 5 Days Qty: 10 0RF albuterol sulfate 90 mcg/actuation aerosol powdr breath activated 2 inh inhalation Q6H PRN (Reason: sob) Qty: 1 0RF albuterol sulfate 2.5 mg /3 mL (0.083 %) solution for nebulization 2.5 mg inhalation Q6H PRN (Reason: shortness of breath or wheezing) Qty: 90 0RF cyclobenzaprine 10 mg tablet 10 mg PO TID PRN (Reason: pain, muscle spasm) Qty: 15 0RF prednisone 20 mg tablet 60 mg PO DAILY 5 Days Qty: 15 0RF acetaminophen [Tylenol Extra Strength] 500 mg tablet 1,000 mg PO Q6H PRN (Reason: fever or pain) Qty: 20 0RF albuterol sulfate 1.25 mg/3 mL solution for nebulization 1.25 mg inhalation Q4-6H PRN (Reason: shortness of breath or wheezing) Qty: 90 0RF prednisone 20 mg tablet 60 mg PO DAILY Qty: 12 0RF albuterol sulfate 90 mcg/actuation HFA aerosol inhaler 2 puff inhalation QID PRN (Reason: shortness of breath or wheezing) Qty: 8.5 0RF Referrals: Physician,None [Primary Care Provider] - 2 days
[2023-08-01 12:44] VITALS: PULSE 128; RESP 24; TEMP 37.2; O2SAT 94
--- NOTE | 2023-08-01 13:41 | PC.NURSE ---
patient reports improvement in breathing. stating that he needs to leave immediately d/t family emergency. iv removed, aware of returning/potential of leaving AMA.
== END 2023-08-01 13:59 | disposition home or self-care (01) ==
PROVIDERS: Emergency Provider Emergency Medicine
DX: J45.909 Unspecified asthma, uncomplicated (principal); R06.02 Shortness of breath; R00.0 Tachycardia, unspecified; Z79.899 Other long term (current) drug therapy; Z11.52 Encounter for screening for COVID-19; Z20.822 Contact with and (suspected) exposure to COVID-19
CPT/HCPCS: 36415; 71045; 80048; 84484; 85025; 87635; 93005; 94640; 96374; 96375; 99284; J2930; J3475

== ENCOUNTER → 2023-08-01 10:57 | Outpatient (BNV) | payer MEDICAID, SELFPAY | PROVIDERS: Emergency Provider Emergency Medicine; Visit Provider Internal Medicine Cardiovascular Disease | DX: R00.0 Tachycardia, unspecified (principal) | CPT/HCPCS: 93010 ==

== ENCOUNTER 2023-08-02 22:24 | Emergency (ER) | payer MEDICAID, SELFPAY ==
--- NOTE | ~2023-08-02 | XR_ITS ---
EXAMINATION: XR CHEST CLINICAL INFORMATION: Dyspnea COMPARISON: 08.01.2023 TECHNIQUE: Frontal view of the chest was obtained. FINDINGS: Normal symmetric lung volumes. No parenchymal consolidation. Mild bronchial wall thickening redemonstrated. No pleural effusion. No pneumothorax. Cardiomediastinal silhouette and pulmonary vascularity are within normal limits. No acute osseous abnormalities. XR/XR chest 1V IMPRESSION: Findings suggestive of bronchitis or asthma, stable from prior. No focal consolidation.
[2023-08-02 22:33] VITALS: BP 184/127; PULSE 133; RESP 24; TEMP 37.5; O2SAT 90; BMI 43.7
--- NOTE | 2023-08-02 22:40 | ECG_ITS ---
Test Reason : SOB Blood Pressure : / mmHG Vent. Rate : 123 BPM Atrial Rate : 125 BPM P-R Int : 136 ms QRS Dur : 084 ms QT Int : 274 ms P-R-T Axes : 062 074 045 degrees QTc Int : 392 ms Sinus tachycardia Otherwise normal ECG When compared with ECG of 01-AUG-2023 11:06, No significant change was found Referred By: Generic ED Physician Electronically Signed By:HUSEYIN DORANTES MD
[2023-08-02] MEDS: methylPREDNISolone Sod Succ 125 MG/2 ML VIAL IVPUSH (22:54)
[2023-08-02] MEDS: Albuterol Sulfate 5 MG, Albuterol Sulfate (0.083%) 2.5 MG 7.5 MG INHALE (23:03)
[2023-08-02 23:06] VITALS: PULSE 123; RESP 30; O2SAT 93
--- NOTE | 2023-08-02 23:20 | ED_ITS ---
HPI - SOB/Dyspnea General Chief Complaint: Dyspnea Stated Complaint: asthma Time Seen by Provider: 08/02/23 22:48 Source: patient Mode of arrival: ambulatory History of Present Illness HPI Narrative: 28-year-old male with worsening shortness of breath over the past 4 days. Patient reports that he does have an inhaler home has been using but it has not helped. Related Data Home Medications Medication Instructions Recorded Confirmed montelukast 10 mg tablet 10 mg PO DAILY 04/24/22 04/24/22 (Singulair) Previous Rx's Medication Instructions Recorded fluticasone 500 mcg-salmeterol 50 1 inh inhalation BID #60 ea 07/02/21 mcg/dose blistr powdr for inhalation (Advair Diskus) nebulizer and compressor #1 ea 09/15/21 albuterol sulfate 90 mcg/actuation 2 puff inhalation Q4-6H PRN 04/18/22 aerosol inhaler shortness of breath or wheezing #8.5 grams nebulizers (Aeroneb Go Nebulizer) #1 ea 04/18/22 albuterol sulfate 90 mcg/actuation 2 puff inhalation Q4-6H PRN 05/14/22 aerosol inhaler (ProAir HFA) Wheezing #8.5 grams prednisone 20 mg tablet 40 mg (2 x 20 mg) PO DAILY #10 tabs 05/14/22 albuterol sulfate 2.5 mg/3 mL 2.5 mg (3 mL) inhalation Q4-6H PRN 06/24/22 (0.083 %) solution for nebulization shortness of breath or wheezing #90 mL albuterol sulfate 90 mcg/actuation 2 puff inhalation Q4-6H PRN 06/24/22 aerosol inhaler (ProAir HFA) shortness of breath or wheezing #8.5 grams prednisone 20 mg tablet 40 mg (2 x 20 mg) PO DAILY #10 tabs 06/24/22 albuterol sulfate 2.5 mg/3 mL 2.5 mg (3 mL) inhalation Q4-6H PRN 08/11/22 (0.083 %) solution for nebulization shortness of breath or wheezing #90 mL albuterol sulfate 90 mcg/actuation 1 inh inhalation QID PRN shortness 08/11/22 aerosol inhaler of breath or wheezing #8.5 grams prednisone 20 mg tablet 20 mg PO BID #10 tabs 08/11/22 prednisone 50 mg tablet 50 mg PO DAILY 4 days #4 tabs 08/15/22 albuterol sulfate 2.5 mg/3 mL 2.5 mg (3 mL) inhalation Q6H #75 mL 08/28/22 (0.083 %) solution for nebulization albuterol sulfate 90 mcg/actuation 2 inh inhalation Q4-6H PRN 08/28/22 breath activated powder inhaler shortness of breath or wheezing #1 ea prednisone 20 mg tablet 40 mg (2 x 20 mg) PO DAILY 5 days 08/28/22 #10 tabs albuterol sulfate 90 mcg/actuation 2 puff inhalation Q4-6H PRN 10/26/22 aerosol inhaler shortness of breath or wheezing #8.5 grams prednisone 50 mg tablet 50 mg PO DAILY #5 tabs 10/26/22 pantoprazole 40 mg tablet,delayed 40 mg PO DAILY #30 tabs 11/10/22 release (Protonix) sucralfate 1 gram tablet 1 g PO BID #60 tabs 11/10/22 albuterol sulfate 5 mg/mL(0.5 %) 5 mg inhalation Q4H PRN shortness 11/19/22 solution for nebulization of breath or wheezing #600 mL albuterol sulfate 90 mcg/actuation 1 inh inhalation QID PRN shortness 11/19/22 aerosol inhaler (Ventolin HFA) of breath or wheezing #8.5 grams prednisone 10 mg tablets in a dose See Taper PO DAILY #48 ea 11/19/22 pack albuterol sulfate 2.5 mg/3 mL 2.5 mg (3 mL) inhalation Q6H PRN 12/07/22 (0.083 %) solution for nebulization shortness of breath or wheezing #90 mL albuterol sulfate 90 mcg/actuation 2 inh inhalation Q6H PRN sob #1 ea 12/07/22 breath activated powder inhaler prednisone 20 mg tablet 40 mg (2 x 20 mg) PO DAILY 5 days 12/07/22 #10 tabs acetaminophen 500 mg tablet 1,000 mg (2 x 500 mg) PO Q6H PRN 12/18/22 (Tylenol Extra Strength) fever or pain #20 tabs cyclobenzaprine 10 mg tablet 10 mg PO TID PRN pain, muscle 12/18/22 spasm #15 tabs prednisone 20 mg tablet 60 mg (3 x 20 mg) PO DAILY 5 days 12/18/22 #15 tabs albuterol sulfate 5 mg/mL(0.5 %) 5 mg inhalation Q4H PRN shortness 12/29/22 solution for nebulization of breath or wheezing #600 mL cyclobenzaprine 10 mg tablet 10 mg PO TID PRN muscle spasm #14 12/29/22 tabs prednisone 10 mg tablets in a dose See Taper PO DAILY #48 ea 12/29/22 pack albuterol sulfate 1.25 mg/3 mL 1.25 mg (3 mL) inhalation Q4-6H 02/12/23 solution for nebulization PRN shortness of breath or wheezing #90 mL albuterol sulfate 90 mcg/actuation 2 puff inhalation QID PRN 02/28/23 aerosol inhaler shortness of breath or wheezing #8.5 grams prednisone 20 mg tablet 60 mg (3 x 20 mg) PO DAILY #12 tabs 02/28/23 albuterol sulfate 2.5 mg/3 mL 2.5 mg (3 mL) inhalation Q6H #75 mL 08/01/23 (0.083 %) solution for nebulization albuterol sulfate 90 mcg/actuation 2 inh inhalation Q4-6H PRN 08/01/23 breath activated powder inhaler shortness of breath or wheezing #1 ea doxycycline hyclate 100 mg capsule 100 mg PO BID 10 days #20 caps 08/01/23 prednisone 50 mg tablet 50 mg PO DAILY 5 days #5 tabs 08/01/23 prednisone 50 mg tablet 50 mg PO DAILY 4 days #4 tabs 08/03/23 Allergies Allergy/AdvReac Type Severity Reaction Status Date / Time shellfish derived Allergy Severe SHORTNESS Verified 02/28/23 01:42 OF BREATH, SWELLING shrimp Allergy Severe ANAPHYLAXIS Verified 02/28/23 01:42 Review of Systems 2 Review of Systems: Rim positives and negatives as stated in HPI [facility] Past Medical History Source: nursing notes reviewed Medical History Asthma Pneumonia due to 2019 novel coronavirus Asthma Family History Family History Mother Asthma Social History Social History Household Members: None Housing: House Do you presently have visiting nurse or other home services: No Alcohol intake: never Patient Tobacco Use Status: Never used Tobacco Smoked in Last 30 Days: No Use of substances other than those prescribed or required for medical reasons: No Advance Directives: No service: No Current occupational status: unemployed Physical Exam 2 Vital Signs: Vital Signs: Last Vital Signs Temp 98.8 F 08/02/23 23:40 Pulse 139 H 08/03/23 00:29 Resp 24 H 08/03/23 00:29 BP 135/70 08/03/23 00:29 Pulse Ox 92 08/03/23 00:29 O2 Del Method Room Air 08/03/23 00:29 BMI result Body Mass Index 43.7 VITAL SIGNS: Reviewed. GENERAL: Well developed, well nourished, in no acute distress. HEAD: Normocephalic/atraumatic EYES: PERRLA, EOMI EARS: Ext canals without abnormality, TMs non-bulging and non-erythematous NOSE: Nares patent bilateral OROPHARYNX: no oral lesions noted, posterior pharynx clear and non-erythematous without noted tonsillar enlargement/erythema/exudates NECK: Supple, no adenopathy LUNGS: Decreased breath sounds bilaterally with trace expiratory wheeze bilaterally. Tachypnea is present. SpO2<93> CARDIOVASCULAR: Regular rate and rhythm without noted murmurs ABDOMEN: Soft, non-tender, non-distended with bowel sounds. MUSCULOSKELETAL: No tenderness, deformities, or effusions noted on gross inspection. EXTREMITIES: No cyanosis, clubbing or edema. SKIN: Inspection of the skin reveals no rashes NEUROLOGIC: Alert and oriented x 4. Strength and sensation to light touch were grossly intact x 4. Medications Administered Discontinued Medications Generic Name Dose Route Start Last Admin Trade Name Freq PRN Reason Stop Dose Admin Albuterol Sulfate 5 mg/ 7.5 mg 08/02/23 22:58 08/02/23 23:03 Albuterol Sulfate 2.5 mg INHALE 08/02/23 22:59 7.5 mg ONCE ONE Administration Magnesium Sulfate 2 gm in 50 mls @ 150 mls/hr 08/03/23 00:15 08/03/23 00:50 Magnesium Sulfate/H2o IV 08/03/23 00:34 Infused ONCE ONE Infusion Methylprednisolone Sodium Succinate 125 mg 08/02/23 22:48 08/02/23 22:54 Methylprednisolone Sod Succ 125 Mg/2 Ml Vial IVPUSH 08/02/23 22:49 125 mg ONCE ONE Administration Medical Decision Making Medical Decision Making [facility] Narrative: 28-year-old male with history and clinical presentation, DDX: Acute asthma exacerbation, viral illness, low clinical suspicion for pneumonia. INTERVENTION: ED Bronch, Solu-Medrol I reviewed all investigations and hematologic indices are negative for leukocytosis or left shift, there is no anemia or thrombocytopenia. Patient is afebrile. Chemistry indices demonstrate a mild lactic acidosis is likely secondary to multiple nebulized treatments, there is no RENÉE her electrolyte derangements. I sensitivity troponin is undetectable. Viral testing and patient is noted be influenza positive but is outside the window for treatment with Tamiflu. Chest x-ray negative for infiltrate and otherwise my interpretation is in agreement with radiology's impression. After multiple courses of nebulized treatments, steroids as well as magnesium sulfate patient reports that he is feeling much better, on ambulation to evaluate oxygenation patient maintains 92%. The understand the patient is being discharged with elevated heart rate that is attributable to multiple nebulized treatments and noted viral infection. Patient has been provided with strict return precautions. Differential Diagnosis Differential Diagnoses: The differential diagnosis associated with the presentation includes Please see the discussion above Admission/Observation Consideration of admission/observation: Escalation of care including admission/observation considered Please see the discussion above Lab Data [facility] Lab Attestation statement: I reviewed the patient's lab results. Please see the discussion above 08/02/23 23:33 08/02/23 23:33 Labs: Lab Results 08/02/23 08/02/23 Range/Units 23:23 23:33 WBC 8.1 (4.8-10.8) X10*3/uL RBC 5.29 (4.60-5.80) X10*6/uL Hgb 14.7 (14.0-18.0) g/dl Hct 43.6 (42.0-52.0) % MCV 82.4 (80.0-98.0) fL MCH 27.8 (27.0-33.0) pg MCHC 33.7 (31.0-36.0) g/dl RDW 12.7 (11.0-16.0) % Plt Count 258 (160-400) X10*3/uL MPV 9.6 (9.4-12.4) fL Immature Gran % (Auto) 0.5 H (0.0-0.4) % Neut % (Auto) 57.0 (45-73) % Lymph % (Auto) 27.8 (20-40) % Josephine % (Auto) 13.9 H (2-11) % Eos % (Auto) 0.2 (0-4) % Baso % (Auto) 0.6 (0-2) % Lymph # (Auto) 2.2 (1.2-4.9) X10*3/uL Josephine # (Auto) 1.1 (0.1-1.2) X10*3/uL Eos # (Auto) 0.0 (0.0-0.4) X10*3/uL Baso # (Auto) 0.1 (0.0-0.2) X10*3/uL Abs Immat Gran (auto) 0.04 H (0.00-0.03) X10*3/uL Absolute Neuts (auto) 4.6 (2.0-8.3) x10*3/uL Absolute Nucleated RBC 0.000 (0.0-0.012) X10*3/uL Nucleated RBC % (auto) 0.0 (0.0-0.2) /100WBC Sodium 134 L (135-145) mmol/L Potassium 3.3 (3.3-5.1) mmol/L Chloride 102 (96-108) mmol/L Carbon Dioxide 23 (22-29) mmol/L Anion Gap 12 (12-20) BUN 12 (9-16) mg/dL Creatinine 0.95 (0.5-1.4) mg/dL Estim Creat Clear Calc 137.1 Estimated GFR > 60 Random Glucose 116 H (60-115) mg/dL Lactic Acid 2.1 H* (0.5-2.0) mmol/L Calcium 8.4 (8.4-10.2) mg/dL Total Bilirubin 0.5 (0.0-1.0) mg/dL Direct Bilirubin 0.1 (0.0-0.5) mg/dL AST 53 H (5-37) U/L ALT 41 H (0-40) U/L Alkaline Phosphatase 72 (39-117) U/L Troponin I High Sens < 2.7 (<3.5-35.0) ng/L Total Protein 8.0 (6.5-8.0) g/dL Albumin 4.2 (3.5-5.0) g/dL Lipase 20 (8-78) U/L COVID-19 (CHRISTIAN) Negative (Negative) COVID-19 Clin Com See Note Influenza Type A (BHARGAVI) Positive A (Negative) Influenza Type B (BHARGAVI) Negative (Negative) Influenza A & B Note See Note Independent Interpretation I performed an independent interpretation of an: EKG Interpretation: Sinus tachycardia, HR-123, no STEMI, [place]/QRS/QTC are within normal limits. Radiology Impression Discussion of test interpretation with radiology: I have reviewed the radiologist's reading. Radiologist Impression: Please see the discussion above External Record Review External record reviewed: Outpatient record, Prior outpatient labs and Prior outpatient radiology Chronic Conditions Patient?s care impacted by: Other Asthma Critical Care Time Critical Care Time Critical Care Time: Yes Total Critical Care Time: 60 Attestation: I personally attest to this time spent taking care of the patient. Discharge Plan Discharge Clinical Impression: Asthma exacerbation, Viral syndrome, Influenza A Patient Disposition: Home, Self-Care Instructions: Asthma (ED), Influenza (ED), Viral Syndrome (ED) Additional Instructions: 1. Resume all home medications as prescribed. 2. Complete the short course of steroids that you have been prescribed. 3. Follow-up with your primary care doctor in the next 1-2 days. You have the flu virus in addition to an exacerbation of your asthma. Return to the ER for any worsening symptoms. Prescriptions: New prednisone 50 mg tablet 50 mg PO DAILY 4 Days Qty: 4 0RF No Action prednisone 20 mg tablet 40 mg PO DAILY Qty: 10 0RF albuterol sulfate [ProAir HFA] 90 mcg/actuation HFA aerosol inhaler 2 puff inhalation Q4-6H PRN (Reason: Wheezing) Qty: 8.5 0RF prednisone 20 mg tablet 40 mg PO DAILY Qty: 10 0RF albuterol sulfate [ProAir HFA] 90 mcg/actuation HFA aerosol inhaler 2 puff inhalation Q4-6H PRN (Reason: shortness of breath or wheezing) Qty: 8.5 3RF albuterol sulfate 2.5 mg /3 mL (0.083 %) solution for nebulization 2.5 mg inhalation Q4-6H PRN (Reason: shortness of breath or wheezing) Qty: 90 0RF prednisone 50 mg tablet 50 mg PO DAILY 4 Days Qty: 4 0RF fluticasone propion-salmeterol [Advair Diskus] 500-50 mcg/dose blister with device 1 inh inhalation BID Qty: 60 0RF (DME) nebulizer and compressor Device See Rx Instructions .Route Qty: 1 0RF Rx Instructions: As directed albuterol sulfate 90 mcg/actuation HFA aerosol inhaler 2 puff inhalation Q4-6H PRN (Reason: shortness of breath or wheezing) Qty: 8.5 0RF (DME) nebulizers [Aeroneb Go Nebulizer] Misc See Rx Instructions .Route Qty: 1 0RF Rx Instructions: As directed montelukast [Singulair] 10 mg Tablet 10 mg PO DAILY albuterol sulfate 2.5 mg /3 mL (0.083 %) solution for nebulization 2.5 mg inhalation Q4-6H PRN (Reason: shortness of breath or wheezing) Qty: 90 0RF albuterol sulfate 90 mcg/actuation HFA aerosol inhaler 1 inh inhalation QID PRN (Reason: shortness of breath or wheezing) Qty: 8.5 0RF prednisone 20 mg tablet 20 mg PO BID Qty: 10 0RF albuterol sulfate 90 mcg/actuation aerosol powdr breath activated 2 inh inhalation Q4-6H PRN (Reason: shortness of breath or wheezing) Qty: 1 0RF albuterol sulfate 2.5 mg /3 mL (0.083 %) solution for nebulization 2.5 mg inhalation Q6H Qty: 75 0RF prednisone 20 mg tablet 40 mg PO DAILY 5 Days Qty: 10 0RF albuterol sulfate 90 mcg/actuation HFA aerosol inhaler 2 puff inhalation Q4-6H PRN (Reason: shortness of breath or wheezing) Qty: 8.5 1RF prednisone 50 mg tablet 50 mg PO DAILY Qty: 5 0RF pantoprazole [Protonix] 40 mg tablet,delayed release (DR/EC) 40 mg PO DAILY Qty: 30 0RF sucralfate 1 gram tablet 1 g PO BID Qty: 60 0RF albuterol sulfate 5 mg/mL solution for nebulization 5 mg inhalation Q4H PRN (Reason: shortness of breath or wheezing) Qty: 600 0RF prednisone 10 mg tablets,dose pack See Taper PO DAILY Qty: 48 0RF Taper: Prednisone 40 mg daily for 3 Days and 0 Hour 30 mg daily for 3 Days and 0 Hour 20 mg daily for 3 Days and 0 Hour 10 mg daily for 3 Days and 0 Hour albuterol sulfate [Ventolin HFA] 90 mcg/actuation HFA aerosol inhaler 1 inh inhalation QID PRN (Reason: shortness of breath or wheezing) Qty: 8.5 0RF prednisone 10 mg tablets,dose pack See Taper PO DAILY Qty: 48 0RF Taper: Prednisone 40 mg daily for 3 Days and 0 Hour 30 mg daily for 3 Days and 0 Hour 20 mg daily for 3 Days and 0 Hour 10 mg daily for 3 Days and 0 Hour albuterol sulfate 5 mg/mL solution for nebulization 5 mg inhalation Q4H PRN (Reason: shortness of breath or wheezing) Qty: 600 0RF cyclobenzaprine 10 mg tablet 10 mg PO TID PRN (Reason: muscle spasm) Qty: 14 0RF prednisone 20 mg tablet 40 mg PO DAILY 5 Days Qty: 10 0RF albuterol sulfate 90 mcg/actuation aerosol powdr breath activated 2 inh inhalation Q6H PRN (Reason: sob) Qty: 1 0RF albuterol sulfate 2.5 mg /3 mL (0.083 %) solution for nebulization 2.5 mg inhalation Q6H PRN (Reason: shortness of breath or wheezing) Qty: 90 0RF cyclobenzaprine 10 mg tablet 10 mg PO TID PRN (Reason: pain, muscle spasm) Qty: 15 0RF prednisone 20 mg tablet 60 mg PO DAILY 5 Days Qty: 15 0RF acetaminophen [Tylenol Extra Strength] 500 mg tablet 1,000 mg PO Q6H PRN (Reason: fever or pain) Qty: 20 0RF albuterol sulfate 1.25 mg/3 mL solution for nebulization 1.25 mg inhalation Q4-6H PRN (Reason: shortness of breath or wheezing) Qty: 90 0RF prednisone 20 mg tablet 60 mg PO DAILY Qty: 12 0RF albuterol sulfate 90 mcg/actuation HFA aerosol inhaler 2 puff inhalation QID PRN (Reason: shortness of breath or wheezing) Qty: 8.5 0RF albuterol sulfate 2.5 mg /3 mL (0.083 %) solution for nebulization 2.5 mg inhalation Q6H Qty: 75 0RF albuterol sulfate 90 mcg/actuation aerosol powdr breath activated 2 inh inhalation Q4-6H PRN (Reason: shortness of breath or wheezing) Qty: 1 0RF prednisone 50 mg tablet 50 mg PO DAILY 5 Days Qty: 5 0RF doxycycline hyclate 100 mg capsule 100 mg PO BID 10 Days Qty: 20 0RF Referrals: [facility] [Primary Care Provider] -
[2023-08-02 23:40] VITALS: BP 112/66; PULSE 150; RESP 24; TEMP 37.1; O2SAT 93
[2023-08-02 23:42] LABS: MANUAL DIFF FLAG NO
[2023-08-02 23:51] LABS: Basophils Absolute Auto 0.1 X10*3/uL (0.0-0.2); Basophils Percent Auto 0.6 % (0-2); Eosinophils Percent Auto 0.2 % (0-4); Hematocrit 43.6 % (42.0-52.0); Hemoglobin 14.7 g/dl (14.0-18.0); Imm Gran Abs Auto 0.04 X10*3/uL (0.00-0.03); Imm Gran Pct Auto 0.5 % (0.0-0.4); Lymphocytes Absolute Auto 2.2 X10*3/uL (1.2-4.9); Lymphocytes Percent Auto 27.8 % (20-40); Mean Corpuscular HGB Conc 33.7 g/dl (31.0-36.0); Mean Corpuscular Hemoglobin 27.8 pg (27.0-33.0); Mean Corpuscular Volume 82.4 fL (80.0-98.0); Mean Platelet Volume 9.6 fL (9.4-12.4); Monocytes Absolute Auto 1.1 X10*3/uL (0.1-1.2); Monocytes Percent Auto 13.9 % (2-11); Neutrophils Absolute Auto 4.6 x10*3/uL (2.0-8.3); Platelet Count 258 X10*3/uL (160-400); Red Blood Count 5.29 X10*6/uL (4.60-5.80); Red Cell Distribution Width 12.7 % (11.0-16.0); White Blood Count 8.1 X10*3/uL (4.8-10.8)
[2023-08-03 00:02] LABS: Alanine Aminotransferase 41 U/L (0-40); Albumin Level 4.2 g/dL (3.5-5.0); Alkaline Phosphatase 72 U/L (39-117); Anion Gap 12 (12-20); Aspartate Amino Transferase 53 U/L (5-37); Bilirubin Direct 0.1 mg/dL (0.0-0.5); Bilirubin Total 0.5 mg/dL (0.0-1.0); Blood Urea Nitrogen 12 mg/dL (9-16); Calcium 8.4 mg/dL (8.4-10.2); Carbon Dioxide 23 mmol/L (22-29); Chloride 102 mmol/L (96-108); Creatinine Clr Calc Pharmacy 137.1; Estimated Glomerular Filt Rate > 60; Glucose Random 116 mg/dL (60-115); Lactic Acid 2.1 mmol/L (0.5-2.0); Lipase 20 U/L (8-78); Potassium 3.3 mmol/L (3.3-5.1); Sodium 134 mmol/L (135-145)
[2023-08-03 00:08] LABS: COVID-19 Test Negative (Negative); IDNOW Serial# 08D9AD1C; IDNOW Serial# BCCEAD1C; Influenza A Positive (Negative); Influenza B2 Negative (Negative)
[2023-08-03 00:12] LABS: Troponin-I High Sensitivity < 2.7 ng/L (<3.5-35.0)
[2023-08-03] MEDS: Magnesium Sulfate/H2O 2 GM/50 ML PIGGYBACK IV (00:26)
[2023-08-03 00:29] VITALS: BP 135/70; PULSE 139; RESP 24; O2SAT 92
--- NOTE | 2023-08-03 00:30 | PC.NURSE ---
Pt aox4, restless at the bedside. Pt reports I feel hot . Pt recently completed breathing treatment. Sinus tach on monitor with HR 130-140. Denies chest pain. Bilateral ins and exp wheezing present. RR 24 o2 sat 92% RA. Pt reports feeing much better . MD made aware of pts HR. Pt medicated as ordered. Tolerated well. Critical result reported to MD: Lactic acid 2.1
[2023-08-03 01:40] LABS: Reflex Lactate? Lactic Acid Added
--- NOTE | 2023-08-03 02:00 | PC.NURSE ---
Walking trial done as requested per MD. Pt ambulated with no difficulty and steady gait. O2 sat remained at 92% RA with ambulation. HR 135-140. MD made aware. Current o2 sat 90% on RA while resting at the bedside.
[2023-08-03] MEDS: Ibuprofen 400 MG TABLET PO (02:08)
[2023-08-03] MEDS: Acetaminophen 325 MG TABLET 975 MG PO (02:08)
[2023-08-03 02:15] VITALS: BP 147/77; PULSE 127; RESP 22; TEMP 37.6; O2SAT 92
== END 2023-08-03 02:16 | disposition home or self-care (01) ==
PROVIDERS: Emergency Provider Student in an Organized Health Care Education/Training Program
DX: J10.1 Influenza due to other identified influenza virus with other respiratory manifestations (principal); B34.9 Viral infection, unspecified; R00.0 Tachycardia, unspecified; R06.02 Shortness of breath; J45.901 Unspecified asthma with (acute) exacerbation; Z11.52 Encounter for screening for COVID-19; Z20.822 Contact with and (suspected) exposure to COVID-19; Z79.899 Other long term (current) drug therapy
CPT/HCPCS: 36415; 71045; 80048; 80076; 83605; 83690; 84484; 85025; 87040; 87502; 87635; 93005; 94640; 96365; 96375; 99284; 99285; J2930; J3475

== ENCOUNTER → 2023-08-02 22:40 | Outpatient (BNV) | payer MEDICAID, SELFPAY | PROVIDERS: Emergency Provider Student in an Organized Health Care Education/Training Program; Visit Provider Internal Medicine Cardiovascular Disease | DX: R00.0 Tachycardia, unspecified (principal) | CPT/HCPCS: 93010 ==

== ENCOUNTER 2023-09-21 01:59 | Emergency (ER) | payer MEDICAID, SELFPAY ==
--- NOTE | ~2023-09-21 | XR_ITS ---
EXAMINATION: XR CHEST CLINICAL INFORMATION: Shortness of breath. COMPARISON: 08/02/2023. TECHNIQUE: 2 views of the chest were obtained. FINDINGS: No significant abnormality is noted involving the heart, lungs, mediastinum, bony thorax or soft tissues. XR/XR chest 2V IMPRESSION: Unremarkable examination.
[2023-09-21 02:03] VITALS: BP 141/91; PULSE 110; RESP 20; TEMP 36.5; O2SAT 94; BMI 44.3
[2023-09-21 02:38] LABS: COVID-19 Test Negative (Negative); IDNOW Serial# 08D9AD1C; IDNOW Serial# 152EDE1D; Influenza A Negative (Negative); Influenza B2 Negative (Negative)
[2023-09-21 03:31] VITALS: BP 130/89; PULSE 94; RESP 18; TEMP 36.7; O2SAT 94
--- NOTE | 2023-09-21 05:14 | ED_ITS ---
HPI - Asthma General Chief Complaint: Asthma Stated Complaint: asthma Time Seen by Provider: 09/21/23 05:14 History of Present Illness HPI Narrative: The patient is a 28-year-old male with a history of asthma. He last had a significant asthma exacerbation about 4 months ago. He has not been on steroids since then. Over the last several days he has had some waxing and waning episodes of shortness of breath and wheezing and finally came to the emergency room tonight. No definite fevers. He has been coughing. Related Data Home Medications Medication Instructions Recorded Confirmed montelukast 10 mg tablet 10 mg PO DAILY 04/24/22 04/24/22 (Singulair) Previous Rx's Medication Instructions Recorded fluticasone 500 mcg-salmeterol 50 1 inh inhalation BID #60 ea 07/02/21 mcg/dose blistr powdr for inhalation (Advair Diskus) nebulizer and compressor #1 ea 09/15/21 albuterol sulfate 90 mcg/actuation 2 puff inhalation Q4-6H PRN 04/18/22 aerosol inhaler shortness of breath or wheezing #8.5 grams nebulizers (Aeroneb Go Nebulizer) #1 ea 04/18/22 albuterol sulfate 90 mcg/actuation 2 puff inhalation Q4-6H PRN 05/14/22 aerosol inhaler (ProAir HFA) Wheezing #8.5 grams prednisone 20 mg tablet 40 mg (2 x 20 mg) PO DAILY #10 tabs 05/14/22 albuterol sulfate 2.5 mg/3 mL 2.5 mg (3 mL) inhalation Q4-6H PRN 06/24/22 (0.083 %) solution for nebulization shortness of breath or wheezing #90 mL albuterol sulfate 90 mcg/actuation 2 puff inhalation Q4-6H PRN 06/24/22 aerosol inhaler (ProAir HFA) shortness of breath or wheezing #8.5 grams prednisone 20 mg tablet 40 mg (2 x 20 mg) PO DAILY #10 tabs 06/24/22 albuterol sulfate 2.5 mg/3 mL 2.5 mg (3 mL) inhalation Q4-6H PRN 08/11/22 (0.083 %) solution for nebulization shortness of breath or wheezing #90 mL albuterol sulfate 90 mcg/actuation 1 inh inhalation QID PRN shortness 08/11/22 aerosol inhaler of breath or wheezing #8.5 grams prednisone 20 mg tablet 20 mg PO BID #10 tabs 08/11/22 prednisone 50 mg tablet 50 mg PO DAILY 4 days #4 tabs 08/15/22 albuterol sulfate 2.5 mg/3 mL 2.5 mg (3 mL) inhalation Q6H #75 mL 08/28/22 (0.083 %) solution for nebulization albuterol sulfate 90 mcg/actuation 2 inh inhalation Q4-6H PRN 08/28/22 breath activated powder inhaler shortness of breath or wheezing #1 ea prednisone 20 mg tablet 40 mg (2 x 20 mg) PO DAILY 5 days 08/28/22 #10 tabs albuterol sulfate 90 mcg/actuation 2 puff inhalation Q4-6H PRN 10/26/22 aerosol inhaler shortness of breath or wheezing #8.5 grams prednisone 50 mg tablet 50 mg PO DAILY #5 tabs 10/26/22 pantoprazole 40 mg tablet,delayed 40 mg PO DAILY #30 tabs 11/10/22 release (Protonix) sucralfate 1 gram tablet 1 g PO BID #60 tabs 11/10/22 albuterol sulfate 5 mg/mL(0.5 %) 5 mg inhalation Q4H PRN shortness 11/19/22 solution for nebulization of breath or wheezing #600 mL albuterol sulfate 90 mcg/actuation 1 inh inhalation QID PRN shortness 11/19/22 aerosol inhaler (Ventolin HFA) of breath or wheezing #8.5 grams prednisone 10 mg tablets in a dose See Taper PO DAILY #48 ea 11/19/22 pack albuterol sulfate 2.5 mg/3 mL 2.5 mg (3 mL) inhalation Q6H PRN 12/07/22 (0.083 %) solution for nebulization shortness of breath or wheezing #90 mL albuterol sulfate 90 mcg/actuation 2 inh inhalation Q6H PRN sob #1 ea 12/07/22 breath activated powder inhaler prednisone 20 mg tablet 40 mg (2 x 20 mg) PO DAILY 5 days 12/07/22 #10 tabs acetaminophen 500 mg tablet 1,000 mg (2 x 500 mg) PO Q6H PRN 12/18/22 (Tylenol Extra Strength) fever or pain #20 tabs cyclobenzaprine 10 mg tablet 10 mg PO TID PRN pain, muscle 12/18/22 spasm #15 tabs prednisone 20 mg tablet 60 mg (3 x 20 mg) PO DAILY 5 days 12/18/22 #15 tabs albuterol sulfate 5 mg/mL(0.5 %) 5 mg inhalation Q4H PRN shortness 12/29/22 solution for nebulization of breath or wheezing #600 mL cyclobenzaprine 10 mg tablet 10 mg PO TID PRN muscle spasm #14 12/29/22 tabs prednisone 10 mg tablets in a dose See Taper PO DAILY #48 ea 12/29/22 pack albuterol sulfate 1.25 mg/3 mL 1.25 mg (3 mL) inhalation Q4-6H 02/12/23 solution for nebulization PRN shortness of breath or wheezing #90 mL albuterol sulfate 90 mcg/actuation 2 puff inhalation QID PRN 02/28/23 aerosol inhaler shortness of breath or wheezing #8.5 grams prednisone 20 mg tablet 60 mg (3 x 20 mg) PO DAILY #12 tabs 02/28/23 albuterol sulfate 2.5 mg/3 mL 2.5 mg (3 mL) inhalation Q6H #75 mL 08/01/23 (0.083 %) solution for nebulization albuterol sulfate 90 mcg/actuation 2 inh inhalation Q4-6H PRN 08/01/23 breath activated powder inhaler shortness of breath or wheezing #1 ea doxycycline hyclate 100 mg capsule 100 mg PO BID 10 days #20 caps 08/01/23 prednisone 50 mg tablet 50 mg PO DAILY 5 days #5 tabs 08/01/23 prednisone 50 mg tablet 50 mg PO DAILY 4 days #4 tabs 08/03/23 albuterol sulfate 90 mcg/actuation 2 puff inhalation Q4-6H PRN 09/21/23 aerosol inhaler shortness of breath or wheezing #8.5 grams prednisone 20 mg tablet 60 mg (3 x 20 mg) PO DAILY 5 days 09/21/23 #15 tabs Allergies Allergy/AdvReac Type Severity Reaction Status Date / Time shellfish derived Allergy Severe SHORTNESS Verified 09/21/23 02:03 OF BREATH, SWELLING shrimp Allergy Severe ANAPHYLAXIS Verified 09/21/23 02:03 Review of Systems Review of Systems: Yes all other systems are reviewed and are negative [facility] Past Medical History Medical History Asthma Pneumonia due to 2019 novel coronavirus Asthma Family History Family History Mother Asthma Social History Social History Household Members: None Housing: House Do you presently have visiting nurse or other home services: No Alcohol intake: never Patient Tobacco Use Status: Never used Tobacco Smoked in Last 30 Days: No Advance Directives: No Advance Directives Information Provided: Yes service: No Current occupational status: unemployed Physical Exam Vital Signs: Vital Signs: Last Vital Signs Temp 97.5 F 09/21/23 06:33 Pulse 116 H 09/21/23 06:33 Resp 5 L 09/21/23 06:33 BP 125/84 09/21/23 06:33 Pulse Ox 94 09/21/23 06:33 O2 Del Method Room Air 09/21/23 06:33 BMI result Body Mass Index 44.3 Const: Other: The patient is a beyer 28-year-old male. He has a mildly cushingoid appearance. He has not appear overtly short of breath but possibly very mildly short of breath. HEENT: Other: Face is symmetrical. Mucous membranes are moist. Pharynx unremarkable. Eyes: Other: Pupils are round equal, conjunctivae are clear, extraocular movements intact Resp: Other: The patient has inspiratory and expiratory wheezes with decreased air movement. There is a prolonged expiratory phase. Cardio: Rate: tachycardic Rhythm: regular rhythm Heart sounds: S1 normal heart sound present and S2 normal heart sound present Skin: Other: Skin is dry and unremarkable. Neuro: Other: Awake, alert, oriented, appropriate, grossly neurologically intact. Extrem: Other: No peripheral edema. Medications Administered Discontinued Medications Generic Name Dose Route Start Last Admin Trade Name Freq PRN Reason Stop Dose Admin Albuterol Sulfate 5 mg/ 7.5 mg 09/21/23 05:39 09/21/23 05:41 Albuterol Sulfate 2.5 mg INHALE 09/21/23 05:40 7.5 mg ONCE ONE Administration Albuterol Sulfate 2.5 mg/ 0 mg 09/21/23 05:18 09/21/23 05:27 Albuterol/Ipratropium 3 ml INHALE 09/21/23 05:19 2 dose ONCE ONE Administration Prednisone 60 mg 09/21/23 05:16 09/21/23 05:25 Prednisone 20 Mg Tablet PO 09/21/23 05:17 60 mg ONCE ONE Administration Medical Decision Making Medical Decision Making [facility] Narrative: The patient is a 28-year-old with a long history of asthma who presents with worsening asthma symptoms over the last 3 or 4 days. He is clearly wheezing on exam. He was given a DuoNeb treatment with the addition albuterol for a total of 10 mg of albuterol. He felt considerably better. He was given 60 mg of prednisone. Thought that he was feeling sufficiently improved that he wanted to be discharged. He requested a prescription for an albuterol inhaler in addition to prednisone. He says he has a nebulizer machine as well. He says that he has albuterol nebules for his machine. He should follow up with his regular doctor and I suspect he should probably be referred to a [place] machine operator. Lab Data Labs: Lab Results 09/21/23 Range/Units 02:10 COVID-19 ([facility]IAN) Negative (Negative) COVID-19 Clin Com See Note Influenza Type A ([facility]ARGAVI) Negative (Negative) Influenza Type B ([facility]ARGAVI) Negative (Negative) Influenza A & B Note See Note Discharge Plan Discharge Clinical Impression: Acute asthma exacerbation Patient Disposition: Home, Self-Care Instructions: Asthma (ED) Additional Instructions: You received a dose of prednisone this morning. Please take prednisone once a day as prescribed. Next dose tomorrow morning. Please use albuterol every 4 hours for the next couple of days. You may then use it on a more as-needed basis. A prescription has been sent for an albuterol inhaler. Please use the AeroChamber device you have (also known as a spacer) when you use the albuterol inhaler. Please follow-up soon with your regular doctor for a recheck. It might be r easonable for you to discuss referral to a lung specialist (also known as a [place] machine operator). Return to the emergency room if significantly worse. Prescriptions: New prednisone 20 mg tablet 60 mg PO DAILY 5 Days Qty: 15 0RF albuterol sulfate 90 mcg/actuation HFA aerosol inhaler 2 puff inhalation Q4-6H PRN (Reason: shortness of breath or wheezing) Qty: 8.5 0RF No Action prednisone 20 mg tablet 40 mg PO DAILY Qty: 10 0RF albuterol sulfate [ProAir HFA] 90 mcg/actuation HFA aerosol inhaler 2 puff inhalation Q4-6H PRN (Reason: Wheezing) Qty: 8.5 0RF prednisone 20 mg tablet 40 mg PO DAILY Qty: 10 0RF albuterol sulfate [ProAir HFA] 90 mcg/actuation HFA aerosol inhaler 2 puff inhalation Q4-6H PRN (Reason: shortness of breath or wheezing) Qty: 8.5 3RF albuterol sulfate 2.5 mg /3 mL (0.083 %) solution for nebulization 2.5 mg inhalation Q4-6H PRN (Reason: shortness of breath or wheezing) Qty: 90 0RF prednisone 50 mg tablet 50 mg PO DAILY 4 Days Qty: 4 0RF fluticasone propion-salmeterol [Advair Diskus] 500-50 mcg/dose blister with device 1 inh inhalation BID Qty: 60 0RF (DME) nebulizer and compressor Device See Rx Instructions .Route Qty: 1 0RF Rx Instructions: As directed albuterol sulfate 90 mcg/actuation HFA aerosol inhaler 2 puff inhalation Q4-6H PRN (Reason: shortness of breath or wheezing) Qty: 8.5 0RF (DME) nebulizers [Aeroneb Go Nebulizer] Misc See Rx Instructions .Route Qty: 1 0RF Rx Instructions: As directed montelukast [Singulair] 10 mg Tablet 10 mg PO DAILY albuterol sulfate 2.5 mg /3 mL (0.083 %) solution for nebulization 2.5 mg inhalation Q4-6H PRN (Reason: shortness of breath or wheezing) Qty: 90 0RF albuterol sulfate 90 mcg/actuation HFA aerosol inhaler 1 inh inhalation QID PRN (Reason: shortness of breath or wheezing) Qty: 8.5 0RF prednisone 20 mg tablet 20 mg PO BID Qty: 10 0RF albuterol sulfate 90 mcg/actuation aerosol powdr breath activated 2 inh inhalation Q4-6H PRN (Reason: shortness of breath or wheezing) Qty: 1 0RF albuterol sulfate 2.5 mg /3 mL (0.083 %) solution for nebulization 2.5 mg inhalation Q6H Qty: 75 0RF prednisone 20 mg tablet 40 mg PO DAILY 5 Days Qty: 10 0RF albuterol sulfate 90 mcg/actuation HFA aerosol inhaler 2 puff inhalation Q4-6H PRN (Reason: shortness of breath or wheezing) Qty: 8.5 1RF prednisone 50 mg tablet 50 mg PO DAILY Qty: 5 0RF pantoprazole [Protonix] 40 mg tablet,delayed release (DR/EC) 40 mg PO DAILY Qty: 30 0RF sucralfate 1 gram tablet 1 g PO BID Qty: 60 0RF albuterol sulfate 5 mg/mL solution for nebulization 5 mg inhalation Q4H PRN (Reason: shortness of breath or wheezing) Qty: 600 0RF prednisone 10 mg tablets,dose pack See Taper PO DAILY Qty: 48 0RF Taper: Prednisone 40 mg daily for 3 Days and 0 Hour 30 mg daily for 3 Days and 0 Hour 20 mg daily for 3 Days and 0 Hour 10 mg daily for 3 Days and 0 Hour albuterol sulfate [Ventolin HFA] 90 mcg/actuation HFA aerosol inhaler 1 inh inhalation QID PRN (Reason: shortness of breath or wheezing) Qty: 8.5 0RF prednisone 10 mg tablets,dose pack See Taper PO DAILY Qty: 48 0RF Taper: Prednisone 40 mg daily for 3 Days and 0 Hour 30 mg daily for 3 Days and 0 Hour 20 mg daily for 3 Days and 0 Hour 10 mg daily for 3 Days and 0 Hour albuterol sulfate 5 mg/mL solution for nebulization 5 mg inhalation Q4H PRN (Reason: shortness of breath or wheezing) Qty: 600 0RF cyclobenzaprine 10 mg tablet 10 mg PO TID PRN (Reason: muscle spasm) Qty: 14 0RF prednisone 50 mg tablet 50 mg PO DAILY 4 Days Qty: 4 0RF prednisone 20 mg tablet 40 mg PO DAILY 5 Days Qty: 10 0RF albuterol sulfate 90 mcg/actuation aerosol powdr breath activated 2 inh inhalation Q6H PRN (Reason: sob) Qty: 1 0RF albuterol sulfate 2.5 mg /3 mL (0.083 %) solution for nebulization 2.5 mg inhalation Q6H PRN (Reason: shortness of breath or wheezing) Qty: 90 0RF cyclobenzaprine 10 mg tablet 10 mg PO TID PRN (Reason: pain, muscle spasm) Qty: 15 0RF prednisone 20 mg tablet 60 mg PO DAILY 5 Days Qty: 15 0RF acetaminophen [Tylenol Extra Strength] 500 mg tablet 1,000 mg PO Q6H PRN (Reason: fever or pain) Qty: 20 0RF albuterol sulfate 1.25 mg/3 mL solution for nebulization 1.25 mg inhalation Q4-6H PRN (Reason: shortness of breath or wheezing) Qty: 90 0RF prednisone 20 mg tablet 60 mg PO DAILY Qty: 12 0RF albuterol sulfate 90 mcg/actuation HFA aerosol inhaler 2 puff inhalation QID PRN (Reason: shortness of breath or wheezing) Qty: 8.5 0RF albuterol sulfate 2.5 mg /3 mL (0.083 %) solution for nebulization 2.5 mg inhalation Q6H Qty: 75 0RF albuterol sulfate 90 mcg/actuation aerosol powdr breath activated 2 inh inhalation Q4-6H PRN (Reason: shortness of breath or wheezing) Qty: 1 0RF prednisone 50 mg tablet 50 mg PO DAILY 5 Days Qty: 5 0RF doxycycline hyclate 100 mg capsule 100 mg PO BID 10 Days Qty: 20 0RF Referrals: [facility] [Provider Group] (Asthma)
[2023-09-21] MEDS: predniSONE 20 MG TABLET 60 MG PO (05:25)
[2023-09-21] MEDS: Albuterol Sulfate 2.5 MG, Albuterol/Iprat 2.5/0.5MG 3 ML 3 ML INHALE (05:27)
[2023-09-21 05:28] VITALS: PULSE 101; RESP 20; O2SAT 94
[2023-09-21 05:39] VITALS: PULSE 101; RESP 24; O2SAT 94
[2023-09-21] MEDS: Albuterol Sulfate 5 MG, Albuterol Sulfate (0.083%) 2.5 MG 7.5 MG INHALE (05:41)
[2023-09-21 06:33] VITALS: BP 125/84; PULSE 110; PULSE 116; RESP 5; TEMP 36.4; O2SAT 94
== END 2023-09-21 07:53 | disposition home or self-care (01) ==
PROVIDERS: Emergency Provider Emergency Medicine
DX: J45.901 Unspecified asthma with (acute) exacerbation (principal); R06.02 Shortness of breath; Z11.52 Encounter for screening for COVID-19; Z79.899 Other long term (current) drug therapy
CPT/HCPCS: 71046; 87502; 87635; 94640; 99284; 99285

== ENCOUNTER 2023-09-23 18:49 | Emergency (ER) | payer MEDICAID, SELFPAY ==
--- NOTE | ~2023-09-23 | XR_ITS ---
EXAMINATION: XR CHEST CLINICAL INFORMATION: Asthma. Shortness of breath. COMPARISON: Chest x-ray dated 09/21/2023 and multiple older exams. TECHNIQUE: Frontal view of the chest was obtained. FINDINGS: The cardiomediastinal silhouette is within normal limits in size. Lungs bilaterally are symmetrically expanded. There is thickening of the central airways and perihilar reticular prominence, consistent with reactive airways disease or bronchitis. No focal consolidation, effusion or pneumothorax is seen. Mild S-shaped thoracolumbar scoliosis. XR/XR chest 1V IMPRESSION: Findings are consistent with reactive airways disease or bronchitis. No focal pneumonia.
[2023-09-23 18:54] VITALS: BP 132/82; PULSE 107; RESP 24; TEMP 36.7; O2SAT 92; BMI 38.3
--- NOTE | 2023-09-23 19:49 | ED_ITS ---
HPI - Asthma General Chief Complaint: Asthma Stated Complaint: Asthma Time Seen by Provider: 09/23/23 19:46 Source: patient Mode of arrival: ambulatory Limitations: no limitations History of Present Illness HPI Narrative: 28-year-old male with a history of asthma which is quite severe with multiple admissions but no history of intubation presents to the ER with concerns of shortness of breath and wheezing. Patient reports he was seen here 2 days ago for same and was discharged with recommendations to continue prednisone and his inhaler at home. He believes the trigger for his asthma is the change in the weather. Denies any recent illnesses, recent travel. No sick contact. No reports of chest pain, fevers, leg swelling or leg pain. Patient used his inhaler prior to arrival with no change in symptoms. Related Data Home Medications Medication Instructions Recorded Confirmed montelukast 10 mg tablet 10 mg PO DAILY 04/24/22 04/24/22 (Singulair) Previous Rx's Medication Instructions Recorded fluticasone 500 mcg-salmeterol 50 1 inh inhalation BID #60 ea 07/02/21 mcg/dose blistr powdr for inhalation (Advair Diskus) nebulizer and compressor #1 ea 09/15/21 albuterol sulfate 90 mcg/actuation 2 puff inhalation Q4-6H PRN 04/18/22 aerosol inhaler shortness of breath or wheezing #8.5 grams nebulizers (Aeroneb Go Nebulizer) #1 ea 04/18/22 albuterol sulfate 90 mcg/actuation 2 puff inhalation Q4-6H PRN 05/14/22 aerosol inhaler (ProAir HFA) Wheezing #8.5 grams prednisone 20 mg tablet 40 mg (2 x 20 mg) PO DAILY #10 tabs 05/14/22 albuterol sulfate 2.5 mg/3 mL 2.5 mg (3 mL) inhalation Q4-6H PRN 06/24/22 (0.083 %) solution for nebulization shortness of breath or wheezing #90 mL albuterol sulfate 90 mcg/actuation 2 puff inhalation Q4-6H PRN 06/24/22 aerosol inhaler (ProAir HFA) shortness of breath or wheezing #8.5 grams prednisone 20 mg tablet 40 mg (2 x 20 mg) PO DAILY #10 tabs 06/24/22 albuterol sulfate 2.5 mg/3 mL 2.5 mg (3 mL) inhalation Q4-6H PRN 08/11/22 (0.083 %) solution for nebulization shortness of breath or wheezing #90 mL albuterol sulfate 90 mcg/actuation 1 inh inhalation QID PRN shortness 08/11/22 aerosol inhaler of breath or wheezing #8.5 grams prednisone 20 mg tablet 20 mg PO BID #10 tabs 08/11/22 prednisone 50 mg tablet 50 mg PO DAILY 4 days #4 tabs 08/15/22 albuterol sulfate 2.5 mg/3 mL 2.5 mg (3 mL) inhalation Q6H #75 mL 08/28/22 (0.083 %) solution for nebulization albuterol sulfate 90 mcg/actuation 2 inh inhalation Q4-6H PRN 08/28/22 breath activated powder inhaler shortness of breath or wheezing #1 ea prednisone 20 mg tablet 40 mg (2 x 20 mg) PO DAILY 5 days 08/28/22 #10 tabs albuterol sulfate 90 mcg/actuation 2 puff inhalation Q4-6H PRN 10/26/22 aerosol inhaler shortness of breath or wheezing #8.5 grams prednisone 50 mg tablet 50 mg PO DAILY #5 tabs 10/26/22 pantoprazole 40 mg tablet,delayed 40 mg PO DAILY #30 tabs 11/10/22 release (Protonix) sucralfate 1 gram tablet 1 g PO BID #60 tabs 11/10/22 albuterol sulfate 5 mg/mL(0.5 %) 5 mg inhalation Q4H PRN shortness 11/19/22 solution for nebulization of breath or wheezing #600 mL albuterol sulfate 90 mcg/actuation 1 inh inhalation QID PRN shortness 11/19/22 aerosol inhaler (Ventolin HFA) of breath or wheezing #8.5 grams prednisone 10 mg tablets in a dose See Taper PO DAILY #48 ea 11/19/22 pack albuterol sulfate 2.5 mg/3 mL 2.5 mg (3 mL) inhalation Q6H PRN 12/07/22 (0.083 %) solution for nebulization shortness of breath or wheezing #90 mL albuterol sulfate 90 mcg/actuation 2 inh inhalation Q6H PRN sob #1 ea 12/07/22 breath activated powder inhaler prednisone 20 mg tablet 40 mg (2 x 20 mg) PO DAILY 5 days 12/07/22 #10 tabs acetaminophen 500 mg tablet 1,000 mg (2 x 500 mg) PO Q6H PRN 12/18/22 (Tylenol Extra Strength) fever or pain #20 tabs cyclobenzaprine 10 mg tablet 10 mg PO TID PRN pain, muscle 12/18/22 spasm #15 tabs prednisone 20 mg tablet 60 mg (3 x 20 mg) PO DAILY 5 days 12/18/22 #15 tabs albuterol sulfate 5 mg/mL(0.5 %) 5 mg inhalation Q4H PRN shortness 12/29/22 solution for nebulization of breath or wheezing #600 mL cyclobenzaprine 10 mg tablet 10 mg PO TID PRN muscle spasm #14 12/29/22 tabs prednisone 10 mg tablets in a dose See Taper PO DAILY #48 ea 12/29/22 pack albuterol sulfate 1.25 mg/3 mL 1.25 mg (3 mL) inhalation Q4-6H 02/12/23 solution for nebulization PRN shortness of breath or wheezing #90 mL albuterol sulfate 90 mcg/actuation 2 puff inhalation QID PRN 02/28/23 aerosol inhaler shortness of breath or wheezing #8.5 grams prednisone 20 mg tablet 60 mg (3 x 20 mg) PO DAILY #12 tabs 02/28/23 albuterol sulfate 2.5 mg/3 mL 2.5 mg (3 mL) inhalation Q6H #75 mL 08/01/23 (0.083 %) solution for nebulization albuterol sulfate 90 mcg/actuation 2 inh inhalation Q4-6H PRN 08/01/23 breath activated powder inhaler shortness of breath or wheezing #1 ea doxycycline hyclate 100 mg capsule 100 mg PO BID 10 days #20 caps 08/01/23 prednisone 50 mg tablet 50 mg PO DAILY 5 days #5 tabs 08/01/23 prednisone 50 mg tablet 50 mg PO DAILY 4 days #4 tabs 08/03/23 albuterol sulfate 90 mcg/actuation 2 puff inhalation Q4-6H PRN 09/21/23 aerosol inhaler shortness of breath or wheezing #8.5 grams prednisone 20 mg tablet 60 mg (3 x 20 mg) PO DAILY 5 days 09/21/23 #15 tabs albuterol sulfate 2.5 mg/0.5 mL 5 mg inhalation Q6H PRN shortness 09/23/23 solution for nebulization of breath or wheezing #30 ea Allergies Allergy/AdvReac Type Severity Reaction Status Date / Time shellfish derived Allergy Severe SHORTNESS Verified 09/23/23 18:54 OF BREATH, SWELLING shrimp Allergy Severe ANAPHYLAXIS Verified 09/23/23 18:54 Review of Systems 2 Review of Systems: Yes all other systems are reviewed and are negative Constitutional: Constitutional: Reports no additional constitutional complaints, Denies body ache(s), Denies chills, Denies fever(s), Denies headache(s) and Denies weakness Eyes: Eyes: Reports no additional eye complaints and Denies change in vision ENT: Reports system reviewed and no additional complaints, except as documented, Denies dizziness, Denies headache(s), Denies nasal congestion, Denies nasal discharge and Denies neck pain Cardiovascular: Cardiovascular: Reports no additional cardiovascular complaints, Denies chest pain, Denies leg edema and Reports dyspnea Respiratory: Respiratory: Reports no additional respiratory complaints, Reports cough, Reports dyspnea and Reports wheezing Gastrointestinal: Gastrointestinal: Reports no additional gastrointestinal complaints, Denies abdominal pain, Denies diarrhea, Denies nausea and Denies vomiting Genitourinary: Genitourinary: Denies urinary incontinence Musculoskeletal: Musculoskeletal: Reports no additional musculoskeletal complaints, Denies back pain, Denies arthralgias, Denies joint swelling, Denies neck pain, Denies numbness and Denies tingling Integumentary/Breasts: Skin/Breast: Reports system reviewed and no additional complaints, except as docu and Denies rash Neurologic: Reports system reviewed and no additional complaints, except as documented, Denies Abnormal speech present, Denies dizziness, Denies headache(s), Denies numbness, Denies tingling and Denies weakness Allergic/Immunologic: Allergic/Immunologic: Reports wheezing PMFSH Past Medical History Attestation statement: The following information was validated with the patient. Source: old records reviewed and nursing notes reviewed Medical History Asthma Pneumonia due to 2019 novel coronavirus Asthma Family History Family History Mother Asthma Social History Social History Household Members: None Housing: House Do you presently have visiting nurse or other home services: No Alcohol intake: never Patient Tobacco Use Status: Never used Tobacco Advance Directives: No Advance Directives Information Provided: No service: No Current occupational status: unemployed Physical Exam 2 Vital Signs: Vital Signs: Last Vital Signs Temp 98.2 F 09/23/23 22:04 Pulse 118 H 09/23/23 22:04 Resp 20 09/23/23 22:04 BP 144/77 H 09/23/23 22:04 Pulse Ox 94 09/23/23 22:04 O2 Del Method Room Air 09/23/23 22:04 BMI result Body Mass Index 38.3 Const: General: cooperative, healthy appearing, comfortable and no acute distress Orientation/consciousness: patient oriented x3 Limitations: no limitations HEENT: Head: Yes normal to inspection Ears: hearing grossly normal bilaterally and TM's normal bilaterally General nose exam: Normal external nose present Face and sinus: Yes normal facial exam Mouth: Normal oral and palatal mucosa present Throat: Yes posterior oropharynx normal, Yes tonsils normal and Yes uvula midline Eyes: General: appearance normal, both eyes and all related structures P upils: Equal, round and reactive pupils present Neck: Neck: Yes normal visual inspection Chest: Chest palpation & inspection: normal inspection of the chest Resp: Other: Tachypnea, speaking short phrases Auscultation: clear to auscultation bilaterally Cardio: Rate: regular rate Rhythm: regular rhythm Peripheral pulses: P eripheral pulses 2+ throughout GI: Inspection: Yes normal to inspection Palpation (GI): Soft to palpation and nontender Auscultation: normal bowel sounds Back/Spine/Pelvis: Thoracic/Lumbar Spine: thoracic and lumbar spine normal to inspection Skin: General skin exam: no rashes or lesions noted Neuro: General: patient oriented x3, no focal motor deficits and normal sensation to monofilament Cranial nerves: Yes Equal, round and reactive pupils present Cognition (Neuro): normal cognition Speech: No Abnormal speech present Gait exam (Neuro): Normal gait present Motor exam (neuro): 5/5 motor strength present throughout Extrem: General: Yes normal to inspection, Yes no pedal edema and Yes no calf tenderness Course Course Course Narrative: 0-Labs are unremarkable. Viral testing is negative. Chest x-ray shows no acute finding. Patient feels much improved. Wheezing improved. Speaking full sentences. Oxygen saturation 95% and greater. Patient would like to go home. He has prednisone at home. He has requesting a refill for his albuterol nebulizer. He has adequate ProAir at home. Reviewed worrisome signs and symptoms of when to return to the emergency room. Comfortable plan for discharge home. Medications Administered Discontinued Medications Generic Name Dose Route Start Last Admin Trade Name Darius PRN Reason Stop Dose Admin Albuterol Sulfate 5 mg/ 0 mg 09/23/23 19:54 09/23/23 19:56 Albuterol/Ipratropium 3 ml INHALE 09/23/23 19:55 2.5 each ONCE ONE Administration Magnesium Sulfate 2 gm in 50 mls @ 25 mls/hr 09/23/23 19:49 09/23/23 19:54 Magnesium Sulfate/H2o IV 09/23/23 21:48 25 mls/hr ONCE ONE Administration Methylprednisolone Sodium Succinate 125 mg 09/23/23 19:49 09/23/23 19:54 Methylprednisolone Sod Succ 125 Mg/2 Ml Vial IVPUSH 09/23/23 19:50 125 mg ONCE ONE Administration Medical Decision Making Medical Decision Making [facility] Narrative: 28-year-old male with a history of asthma which is quite severe with multiple admissions but no history of intubation presents to the ER with concerns of shortness of breath and wheezing. Patient reports he was seen here 2 days ago for same and was discharged with recommendations to continue prednisone and his inhaler at home. He believes the trigger for his asthma is the change in the weather. Denies any recent illnesses, recent travel. No sick contact. No reports of chest pain, fevers, leg swelling or leg pain. Patient used his inhaler prior to arrival with no change in symptoms. On my exam the patient is sitting upright, speaking short sentences, wheezing throughout. Oxygen is 92-95% on room air. Will obtain labs, chest x-ray, viral testing Respiratory called for albuterol treatment Will give Solu-Medrol and magnesium Differential Diagnosis Differential Diagnoses: The differential diagnosis associated with the presentation includes Asthma exacerbation Viral syndrome Pneumonia Low concern for PE Admission/Observation Consideration of admission/observation: Escalation of care including admission/observation considered Asthma exacerbation without hypoxia. Not requiring supplemental oxygen were admission will be warranted Lab Data [facility] Lab Attestation statement: I reviewed the patient's lab results. 09/23/23 19:52 09/23/23 19:52 Labs: Lab Results 09/23/23 09/23/23 Range/Units 19:52 20:12 WBC 11.6 H (4.8-10.8) X10*3/uL RBC 5.42 (4.60-5.80) X10*6/uL Hgb 14.8 (14.0-18.0) g/dl Hct 42.7 (42.0-52.0) % MCV 78.8 L (80.0-98.0) fL MCH 27.3 (27.0-33.0) pg MCHC 34.7 (31.0-36.0) g/dl RDW 12.3 (11.0-16.0) % Plt Count 320 (160-400) X10*3/uL MPV 9.3 L (9.4-12.4) fL Immature Gran % (Auto) 0.4 (0.0-0.4) % Neut % (Auto) 77.2 H (45-73) % Lymph % (Auto) 15.4 L (20-40) % Bacon % (Auto) 2.9 (2-11) % Eos % (Auto) 2.9 (0-4) % Baso % (Auto) 1.2 (0-2) % Lymph # (Auto) 1.8 (1.2-4.9) X10*3/uL Bacon # (Auto) 0.3 (0.1-1.2) X10*3/uL Eos # (Auto) 0.3 (0.0-0.4) X10*3/uL Baso # (Auto) 0.1 (0.0-0.2) X10*3/uL Abs Immat Gran (auto) 0.05 H (0.00-0.03) X10*3/uL Absolute Neuts (auto) 9.0 H (2.0-8.3) x10*3/uL Absolute Nucleated RBC 0.000 (0.0-0.012) X10*3/uL Nucleated RBC % (auto) 0.0 (0.0-0.2) /100WBC Sodium 135 (135-145) mmol/L Potassium 3.8 (3.3-5.1) mmol/L Chloride 103 (96-108) mmol/L Carbon Dioxide 18 L (22-29) mmol/L Anion Gap 18 (12-20) BUN 7 L (9-16) mg/dL Creatinine 0.87 (0.5-1.4) mg/dL Estim Creat Clear Calc 139.3 Estimated GFR > 60 Random Glucose 229 H (60-115) mg/dL Calcium 8.8 (8.4-10.2) mg/dL Total Bilirubin 0.3 (0.0-1.0) mg/dL AST 33 (5-37) U/L ALT 46 H (0-40) U/L Alkaline Phosphatase 80 (39-117) U/L Total Protein 7.8 (6.5-8.0) g/dL Albumin 4.3 (3.5-5.0) g/dL Influenza Type A (PCR) NEGATIVE (Negative) Influenza Type B (PCR) NEGATIVE (Negative) RSV RNA Qual (PCR) NEGATIVE (Negative) SARS-CoV-2 RNA (RT-PCR) NEGATIVE (Negative) Independent Interpretation I performed an independent interpretation of an: Plain X-Ray Interpretation: I independently viewed the chest x-ray and agree with the radiology report Radiology Impression Discussion of test interpretation with radiology: I have reviewed the radiologist's reading. Radiologist Impression: [place] [id number] XRay Report Signed Patient: Ian Harper MR#: [id number] : 1995 Acct:[id number] Age/Sex: 28 / M ADM Date: 09/23/23 Loc: .ED Attending Dr: Ordering Physician: Artemio Bright MD Date of Service: 09/23/23 Procedure(s): XR chest 1V Accession Number(s): [id number] cc: Artemio Bright MD; Physician,Unknown ~ EXAMINATION: XR CHEST CLINICAL INFORMATION: Asthma. Shortness of breath. COMPARISON: Chest x-ray dated 09/21/2023 and multiple older exams. TECHNIQUE: Frontal view of the chest was obtained. FINDINGS: The cardiomediastinal silhouette is within normal limits in size. Lungs bilaterally are symmetrically expanded. There is thickening of the central airways and perihilar reticular prominence, consistent with reactive airways disease or bronchitis. No focal consolidation, effusion or pneumothorax is seen. Mild S-shaped thoracolumbar scoliosis. XR/XR chest 1V IMPRESSION: Findings are consistent with reactive airways disease or bronchitis. No focal pneumonia. Discharge Plan Discharge Clinical Impression: Asthma Patient Disposition: Home, Self-Care Instructions: Asthma (ED) Additional Instructions: Start your prednisone tomorrow Continue your albuterol Return for worsening symptoms Your chest xray was normal. your labs normal. Your testing for COVID and flu are negative Prescriptions: New albuterol sulfate 2.5 mg/0.5 mL solution for nebulization 5 mg inhalation Q6H PRN (Reason: shortness of breath or wheezing) Qty: 30 0RF No Action prednisone 20 mg tablet 40 mg PO DAILY Qty: 10 0RF albuterol sulfate [ProAir HFA] 90 mcg/actuation HFA aerosol inhaler 2 puff inhalation Q4-6H PRN (Reason: Wheezing) Qty: 8.5 0RF prednisone 20 mg tablet 40 mg PO DAILY Qty: 10 0RF albuterol sulfate [ProAir HFA] 90 mcg/actuation HFA aerosol inhaler 2 puff inhalation Q4-6H PRN (Reason: shortness of breath or wheezing) Qty: 8.5 3RF albuterol sulfate 2.5 mg /3 mL (0.083 %) solution for nebulization 2.5 mg inhalation Q4-6H PRN (Reason: shortness of breath or wheezing) Qty: 90 0RF prednisone 50 mg tablet 50 mg PO DAILY 4 Days Qty: 4 0RF fluticasone propion-salmeterol [Advair Diskus] 500-50 mcg/dose blister with device 1 inh inhalation BID Qty: 60 0RF (DME) nebulizer and compressor Device See Rx Instructions .Route Qty: 1 0RF Rx Instructions: As directed albuterol sulfate 90 mcg/actuation HFA aerosol inhaler 2 puff inhalation Q4-6H PRN (Reason: shortness of breath or wheezing) Qty: 8.5 0RF (DME) nebulizers [Aeroneb Go Nebulizer] Misc See Rx Instructions .Route Qty: 1 0RF Rx Instructions: As directed montelukast [Singulair] 10 mg Tablet 10 mg PO DAILY albuterol sulfate 2.5 mg /3 mL (0.083 %) solution for nebulization 2.5 mg inhalation Q4-6H PRN (Reason: shortness of breath or wheezing) Qty: 90 0RF albuterol sulfate 90 mcg/actuation HFA aerosol inhaler 1 inh inhalation QID PRN (Reason: shortness of breath or wheezing) Qty: 8.5 0RF prednisone 20 mg tablet 20 mg PO BID Qty: 10 0RF albuterol sulfate 90 mcg/actuation aerosol powdr breath activated 2 inh inhalation Q4-6H PRN (Reason: shortness of breath or wheezing) Qty: 1 0RF albuterol sulfate 2.5 mg /3 mL (0.083 %) solution for nebulization 2.5 mg inhalation Q6H Qty: 75 0RF prednisone 20 mg tablet 40 mg PO DAILY 5 Days Qty: 10 0RF albuterol sulfate 90 mcg/actuation HFA aerosol inhaler 2 puff inhalation Q4-6H PRN (Reason: shortness of breath or wheezing) Qty: 8.5 1RF prednisone 50 mg tablet 50 mg PO DAILY Qty: 5 0RF pantoprazole [Protonix] 40 mg tablet,delayed release (DR/EC) 40 mg PO DAILY Qty: 30 0RF sucralfate 1 gram tablet 1 g PO BID Qty: 60 0RF albuterol sulfate 5 mg/mL solution for nebulization 5 mg inhalation Q4H PRN (Reason: shortness of breath or wheezing) Qty: 600 0RF prednisone 10 mg tablets,dose pack See Taper PO DAILY Qty: 48 0RF Taper: Prednisone 40 mg daily for 3 Days and 0 Hour 30 mg daily for 3 Days and 0 Hour 20 mg daily for 3 Days and 0 Hour 10 mg daily for 3 Days and 0 Hour albuterol sulfate [Ventolin HFA] 90 mcg/actuation HFA aerosol inhaler 1 inh inhalation QID PRN (Reason: shortness of breath or wheezing) Qty: 8.5 0RF prednisone 10 mg tablets,dose pack See Taper PO DAILY Qty: 48 0RF Taper: Prednisone 40 mg daily for 3 Days and 0 Hour 30 mg daily for 3 Days and 0 Hour 20 mg daily for 3 Days and 0 Hour 10 mg daily for 3 Days and 0 Hour albuterol sulfate 5 mg/mL solution for nebulization 5 mg inhalation Q4H PRN (Reason: shortness of breath or wheezing) Qty: 600 0RF cyclobenzaprine 10 mg tablet 10 mg PO TID PRN (Reason: muscle spasm) Qty: 14 0RF prednisone 50 mg tablet 50 mg PO DAILY 4 Days Qty: 4 0RF prednisone 20 mg tablet 60 mg PO DAILY 5 Days Qty: 15 0RF albuterol sulfate 90 mcg/actuation HFA aerosol inhaler 2 puff inhalation Q4-6H PRN (Reason: shortness of breath or wheezing) Qty: 8.5 0RF prednisone 20 mg tablet 40 mg PO DAILY 5 Days Qty: 10 0RF albuterol sulfate 90 mcg/actuation aerosol powdr breath activated 2 inh inhalation Q6H PRN (Reason: sob) Qty: 1 0RF albuterol sulfate 2.5 mg /3 mL (0.083 %) solution for nebulization 2.5 mg inhalation Q6H PRN (Reason: shortness of breath or wheezing) Qty: 90 0RF cyclobenzaprine 10 mg tablet 10 mg PO TID PRN (Reason: pain, muscle spasm) Qty: 15 0RF prednisone 20 mg tablet 60 mg PO DAILY 5 Days Qty: 15 0RF acetaminophen [Tylenol Extra Strength] 500 mg tablet 1,000 mg PO Q6H PRN (Reason: fever or pain) Qty: 20 0RF albuterol sulfate 1.25 mg/3 mL solution for nebulization 1.25 mg inhalation Q4-6H PRN (Reason: shortness of breath or wheezing) Qty: 90 0RF prednisone 20 mg tablet 60 mg PO DAILY Qty: 12 0RF albuterol sulfate 90 mcg/actuation HFA aerosol inhaler 2 puff inhalation QID PRN (Reason: shortness of breath or wheezing) Qty: 8.5 0RF albuterol sulfate 2.5 mg /3 mL (0.083 %) solution for nebulization 2.5 mg inhalation Q6H Qty: 75 0RF albuterol sulfate 90 mcg/actuation aerosol powdr breath activated 2 inh inhalation Q4-6H PRN (Reason: shortness of breath or wheezing) Qty: 1 0RF prednisone 50 mg tablet 50 mg PO DAILY 5 Days Qty: 5 0RF doxycycline hyclate 100 mg capsule 100 mg PO BID 10 Days Qty: 20 0RF Referrals: Physician,Unknown J [Primary Care Provider] - 5 days Interventions: ED Discharge Assessment Last Done: 09/23/23 22:10
[2023-09-23] MEDS: methylPREDNISolone Sod Succ 125 MG/2 ML VIAL IVPUSH (19:54)
[2023-09-23] MEDS: Magnesium Sulfate/H2O 2 GM/50 ML PIGGYBACK IV (19:54)
[2023-09-23 19:56] LABS: MANUAL DIFF FLAG NO
[2023-09-23] MEDS: Albuterol Sulfate 5 MG, Albuterol/Iprat 2.5/0.5MG 3 ML 3 ML INHALE (19:56)
[2023-09-23 19:58] LABS: Basophils Absolute Auto 0.1 X10*3/uL (0.0-0.2); Basophils Percent Auto 1.2 % (0-2); Eosinophils Absolute Auto 0.3 X10*3/uL (0.0-0.4); Eosinophils Percent Auto 2.9 % (0-4); Hematocrit 42.7 % (42.0-52.0); Hemoglobin 14.8 g/dl (14.0-18.0); Imm Gran Abs Auto 0.05 X10*3/uL (0.00-0.03); Imm Gran Pct Auto 0.4 % (0.0-0.4); Lymphocytes Absolute Auto 1.8 X10*3/uL (1.2-4.9); Lymphocytes Percent Auto 15.4 % (20-40); Mean Corpuscular HGB Conc 34.7 g/dl (31.0-36.0); Mean Corpuscular Hemoglobin 27.3 pg (27.0-33.0); Mean Corpuscular Volume 78.8 fL (80.0-98.0); Mean Platelet Volume 9.3 fL (9.4-12.4); Monocytes Absolute Auto 0.3 X10*3/uL (0.1-1.2); Monocytes Percent Auto 2.9 % (2-11); Neutrophils Percent Auto 77.2 % (45-73); Platelet Count 320 X10*3/uL (160-400); Red Blood Count 5.42 X10*6/uL (4.60-5.80); Red Cell Distribution Width 12.3 % (11.0-16.0); White Blood Count 11.6 X10*3/uL (4.8-10.8)
[2023-09-23 19:59] VITALS: PULSE 111; RESP 19; O2SAT 95
[2023-09-23 20:10] LABS: Alanine Aminotransferase 46 U/L (0-40); Albumin Level 4.3 g/dL (3.5-5.0); Alkaline Phosphatase 80 U/L (39-117); Anion Gap 18 (12-20); Aspartate Amino Transferase 33 U/L (5-37); Bilirubin Total 0.3 mg/dL (0.0-1.0); Blood Urea Nitrogen 7 mg/dL (9-16); Calcium 8.8 mg/dL (8.4-10.2); Carbon Dioxide 18 mmol/L (22-29); Chloride 103 mmol/L (96-108); Creatinine Clr Calc Pharmacy 139.3; Estimated Glomerular Filt Rate > 60; Glucose Random 229 mg/dL (60-115); Potassium 3.8 mmol/L (3.3-5.1); Sodium 135 mmol/L (135-145); Total Protein 7.8 g/dL (6.5-8.0)
[2023-09-23 20:11] VITALS: BP 131/74; PULSE 105; RESP 21; TEMP 36.9; O2SAT 95
[2023-09-23 20:57] LABS: Influenza A PCR NEGATIVE (Negative); Influenza B PCR NEGATIVE (Negative); Resp Syncy Virus RNA Qual PCR NEGATIVE (Negative); SARS COV2 PCR INHOUSE NEGATIVE (Negative)
[2023-09-23 22:04] VITALS: BP 144/77; PULSE 118; RESP 20; TEMP 36.8; O2SAT 94
== END 2023-09-23 22:13 | disposition home or self-care (01) ==
PROVIDERS: Nurse Practitioner Family; Emergency Provider Emergency Medicine
DX: J45.909 Unspecified asthma, uncomplicated (principal); Z11.52 Encounter for screening for COVID-19; Z20.828 Contact with and (suspected) exposure to other viral communicable diseases
CPT/HCPCS: 0241U; 36415; 71045; 80053; 85025; 94640; 96365; 96366; 96375; 99284; 99285; J2930; J3475

== ENCOUNTER 2023-10-05 10:00 | Emergency (ER) | payer MEDICAID, SELFPAY ==
[2023-10-05 10:10] VITALS: BP 160/79; PULSE 118; RESP 17; O2SAT 93; BMI 44.3
--- NOTE | 2023-10-05 10:19 | PC.NURSE ---
md lopez notified sat 92-93% w sob and delroy asthma, to eval at bedside, swabs sent. RT at bedside doing bronch protocol eval
[2023-10-05] MEDS: Albuterol Sulfate 5 MG, Albuterol/Iprat 2.5/0.5MG 3 ML 3 ML INHALE (10:26)
[2023-10-05 10:27] VITALS: PULSE 116; RESP 20; O2SAT 94
--- NOTE | 2023-10-05 10:40 | ED.ASTHMA ---
HPI - Asthma General Chief Complaint: Dyspnea Stated Complaint: Asthma Time Seen by Provider: 10/05/23 10:19 Source: patient Mode of arrival: ambulatory Limitations: no limitations History of Present Illness HPI Narrative: 28-year-old male with history of asthma which is quite severe with multiple hospitalization, no intubation history presented today with shortness of breath and wheezing for 1 day patient use his own inhaler with no relief of his symptoms. Declined coughing with phlegm, no runny nose, no fever, no chills. Related Data Home Medications Medication Instructions Recorded Confirmed montelukast 10 mg tablet 10 mg PO DAILY 04/24/22 04/24/22 (Singulair) Previous Rx's Medication Instructions Recorded fluticasone 500 mcg-salmeterol 50 1 inh inhalation BID #60 ea 07/02/21 mcg/dose blistr powdr for inhalation (Advair Diskus) nebulizer and compressor #1 ea 09/15/21 albuterol sulfate 90 mcg/actuation 2 puff inhalation Q4-6H PRN 04/18/22 aerosol inhaler shortness of breath or wheezing #8.5 grams nebulizers (Aeroneb Go Nebulizer) #1 ea 04/18/22 albuterol sulfate 90 mcg/actuation 2 puff inhalation Q4-6H PRN 05/14/22 aerosol inhaler (ProAir HFA) Wheezing #8.5 grams prednisone 20 mg tablet 40 mg (2 x 20 mg) PO DAILY #10 tabs 05/14/22 albuterol sulfate 2.5 mg/3 mL 2.5 mg (3 mL) inhalation Q4-6H PRN 06/24/22 (0.083 %) solution for nebulization shortness of breath or wheezing #90 mL albuterol sulfate 90 mcg/actuation 2 puff inhalation Q4-6H PRN 06/24/22 aerosol inhaler (ProAir HFA) shortness of breath or wheezing #8.5 grams prednisone 20 mg tablet 40 mg (2 x 20 mg) PO DAILY #10 tabs 06/24/22 albuterol sulfate 2.5 mg/3 mL 2.5 mg (3 mL) inhalation Q4-6H PRN 08/11/22 (0.083 %) solution for nebulization shortness of breath or wheezing #90 mL albuterol sulfate 90 mcg/actuation 1 inh inhalation QID PRN shortness 08/11/22 aerosol inhaler of breath or wheezing #8.5 grams prednisone 20 mg tablet 20 mg PO BID #10 tabs 08/11/22 prednisone 50 mg tablet 50 mg PO DAILY 4 days #4 tabs 08/15/22 albuterol sulfate 2.5 mg/3 mL 2.5 mg (3 mL) inhalation Q6H #75 mL 08/28/22 (0.083 %) solution for nebulization albuterol sulfate 90 mcg/actuation 2 inh inhalation Q4-6H PRN 08/28/22 breath activated powder inhaler shortness of breath or wheezing #1 ea prednisone 20 mg tablet 40 mg (2 x 20 mg) PO DAILY 5 days 08/28/22 #10 tabs albuterol sulfate 90 mcg/actuation 2 puff inhalation Q4-6H PRN 10/26/22 aerosol inhaler shortness of breath or wheezing #8.5 grams prednisone 50 mg tablet 50 mg PO DAILY #5 tabs 10/26/22 pantoprazole 40 mg tablet,delayed 40 mg PO DAILY #30 tabs 11/10/22 release (Protonix) sucralfate 1 gram tablet 1 g PO BID #60 tabs 11/10/22 albuterol sulfate 5 mg/mL(0.5 %) 5 mg inhalation Q4H PRN shortness 11/19/22 solution for nebulization of breath or wheezing #600 mL albuterol sulfate 90 mcg/actuation 1 inh inhalation QID PRN shortness 11/19/22 aerosol inhaler (Ventolin HFA) of breath or wheezing #8.5 grams prednisone 10 mg tablets in a dose See Taper PO DAILY #48 ea 11/19/22 pack albuterol sulfate 2.5 mg/3 mL 2.5 mg (3 mL) inhalation Q6H PRN 12/07/22 (0.083 %) solution for nebulization shortness of breath or wheezing #90 mL albuterol sulfate 90 mcg/actuation 2 inh inhalation Q6H PRN sob #1 ea 12/07/22 breath activated powder inhaler prednisone 20 mg tablet 40 mg (2 x 20 mg) PO DAILY 5 days 12/07/22 #10 tabs acetaminophen 500 mg tablet 1,000 mg (2 x 500 mg) PO Q6H PRN 12/18/22 (Tylenol Extra Strength) fever or pain #20 tabs cyclobenzaprine 10 mg tablet 10 mg PO TID PRN pain, muscle 12/18/22 spasm #15 tabs prednisone 20 mg tablet 60 mg (3 x 20 mg) PO DAILY 5 days 12/18/22 #15 tabs albuterol sulfate 5 mg/mL(0.5 %) 5 mg inhalation Q4H PRN shortness 12/29/22 solution for nebulization of breath or wheezing #600 mL cyclobenzaprine 10 mg tablet 10 mg PO TID PRN muscle spasm #14 12/29/22 tabs prednisone 10 mg tablets in a dose See Taper PO DAILY #48 ea 12/29/22 pack albuterol sulfate 1.25 mg/3 mL 1.25 mg (3 mL) inhalation Q4-6H 02/12/23 solution for nebulization PRN shortness of breath or wheezing #90 mL albuterol sulfate 90 mcg/actuation 2 puff inhalation QID PRN 02/28/23 aerosol inhaler shortness of breath or wheezing #8.5 grams prednisone 20 mg tablet 60 mg (3 x 20 mg) PO DAILY #12 tabs 02/28/23 albuterol sulfate 2.5 mg/3 mL 2.5 mg (3 mL) inhalation Q6H #75 mL 08/01/23 (0.083 %) solution for nebulization albuterol sulfate 90 mcg/actuation 2 inh inhalation Q4-6H PRN 08/01/23 breath activated powder inhaler shortness of breath or wheezing #1 ea doxycycline hyclate 100 mg capsule 100 mg PO BID 10 days #20 caps 08/01/23 prednisone 50 mg tablet 50 mg PO DAILY 5 days #5 tabs 08/01/23 prednisone 50 mg tablet 50 mg PO DAILY 4 days #4 tabs 08/03/23 albuterol sulfate 90 mcg/actuation 2 puff inhalation Q4-6H PRN 09/21/23 aerosol inhaler shortness of breath or wheezing #8.5 grams prednisone 20 mg tablet 60 mg (3 x 20 mg) PO DAILY 5 days 09/21/23 #15 tabs albuterol sulfate 2.5 mg/0.5 mL 5 mg inhalation Q6H PRN shortness 09/23/23 solution for nebulization of breath or wheezing #30 ea prednisone 20 mg tablet 20 mg PO BID #10 tabs 10/05/23 Allergies Allergy/AdvReac Type Severity Reaction Status Date / Time shellfish derived Allergy Severe SHORTNESS Verified 10/05/23 10:10 OF BREATH, SWELLING shrimp Allergy Severe ANAPHYLAXIS Verified 10/05/23 10:10 Review of Systems Review of Systems: All other systems are reviewed and are negative Constitutional: Reports as per HPI and Reports no additional constitutional complaints Eyes: Reports as per HPI and Reports no additional eye complaints Reports system reviewed and no additional complaints, except as documented Cardiovascular: Reports as per HPI and Reports no additional cardiovascular complaints Respiratory: Reports as per HPI and Reports no additional respiratory complaints Gastrointestinal: Reports as per HPI and Reports no additional gastrointestinal complaints Genitourinary: Reports no additional female genitourinary complaints Musculoskeletal: Reports no additional musculoskeletal complaints Skin/Breast: Reports system reviewed and no additional complaints, except as docu Psychiatric: Reports no additional psychiatric complaints Endocrine: Reports no additional endocrine complaints Hematologic/Lymphatic: Reports no additional hematologic/lymphatic complaints Allergic/Immunologic: Reports no additional allergic/immunologic complaints Reports system reviewed and no additional complaints, except as documented and Reports Abnormal speech present [facility] Past Medical History Medical History Asthma Pneumonia due to 2019 novel coronavirus Asthma Family History Family History Mother Asthma Social History Social History Household Members: None Housing: House Do you presently have visiting nurse or other home services: No Alcohol intake: never Patient Tobacco Use Status: Never used Tobacco Smoked in Last 30 Days: No Use of substances other than those prescribed or required for medical reasons: No Advance Directives: No service: No Current occupational status: unemployed Physical Exam Vital Signs: Vital Signs: Last Vital Signs Pulse 126 H 10/05/23 11:05 Resp 16 10/05/23 11:05 BP 144/55 H 10/05/23 10:58 Pulse Ox 95 10/05/23 10:58 O2 Del Method Room Air 10/05/23 10:58 BMI result Body Mass Index 44.3 Vital signs have been reviewed and appear to be correct. Blood pressure elevated. Heart rate elevated. Respiratory rate elevated. Temperature normal. Oxygen saturation normal. Appearance: Alert. Oriented X3. No acute distress. Head: Normal external exam. Normocephalic. Atraumatic. No [place] signs noted. No raccoon eyes noted Eyes: PERRLA. EOMI. Conjunctiva and sclera normal. Eyelids normal. ENT: TM's Normal. Pharynx normal. Uvula midline. Moist mucous membranes. No trismus noted. No drooling noted. No muffled voice noted. Neck: Normal inspection. Neck supple. FROM. No adenopathy. Thyroid Normal. No meningeal signs. No neck mass noted. CVS: Normal heart rate and rhythm. Heart sound normal. No murmurs noted. Pulses normal throughout. Respiratory: No respiratory distress. Painless inspiration. Breath sounds normal. Prolonged expiratory phase with diffuse bilateral expiratory wheezing. Chest nontender. No accessory muscle usage noted or decreased air movement noted. Abdomen: Soft and nontender. Bowel sounds normal in all 4 quadrants. No distention noted. No organomegaly noted. No visible injury noted. Back: No CVA tenderness. Full range of motion noted. Skin: Skin warm and dry. Normal skin color. Normal skin turgor. No rashes/lesions/lacerations noted. Extremities: No lower extremity edema. Extremities exhibit normal range of motion. Extremities nontender. Neuro: Oriented X 3. Cranial nerve exam: II-XII are grossly intact No motor deficit. No sensory deficit. Reflexes normal. Course Reevaluation(s) Reevaluation #1: 28-year-old male with quite severe history of asthma came in with shortness of breath and wheezing with history of multiple hospitalization usually ends up by signing himself AMA, received multiple doses of bronchodilator and 1 dose of 40 mg of prednisone orally, patient feels better don't want to be hospitalized today, slightly tachycardia due to albuterol. Time: 11:38 Medications Administered Discontinued Medications Generic Name Dose Route Start Last Admin Trade Name Freq PRN Reason Stop Dose Admin Albuterol Sulfate 2 puff 10/05/23 11:03 10/05/23 11:09 Albuterol Sulfate 90 Mcg 8 Gm Inhaler INHALE 10/05/23 11:04 2 puff ONCE ONE Administration Albuterol Sulfate 5 mg/ 0 mg 10/05/23 10:19 10/05/23 10:26 Albuterol/Ipratropium 3 ml INHALE 10/05/23 10:20 2.5 each ONCE ONE Administration Levalbuterol HCl 2.5 mg/ 0 mg 10/05/23 10:56 10/05/23 11:05 Ipratropium [place] 0.5 mg INHALE 10/05/23 10:57 1.25 dose ONCE ONE Administration Prednisone 40 mg 10/05/23 10:40 10/05/23 10:49 Prednisone 20 Mg Tablet PO 10/05/23 10:41 40 mg ONCE ONE Administration Prednisone 40 mg 10/05/23 10:52 10/05/23 11:34 Prednisone 20 Mg Tablet PO 10/05/23 10:53 Not Given ONCE ONE Medical Decision Making Differential Diagnosis Differential Diagnoses: The differential diagnosis associated with the presentation includes (Upper respiratory viral infection, influenza COVID-19 infection, RSV, asthma exacerbation) Admission/Observation Consideration of admission/observation: Escalation of care including admission/observation considered Lab Data MDM Lab Attestation statement: I reviewed the patient's lab results. Labs: Lab Results 10/05/23 Range/Units 10:17 COVID-19 ([facility]IAN) Negative (Negative) COVID-19 Clin Com See Note Influenza Type A (BHARGAVI) Negative (Negative) Influenza Type B (BHARGAVI) Negative (Negative) Influenza A & B Note See Note Chronic Conditions Patient?s care impacted by: Other (Bronchial asthma) Critical Care Time Critical Care Time Critical Care Time: Yes Total Critical Care Time: 60 Attestation: I spent 60 minutes providing critical care service to the patient, this including time spent at the bedside to evaluate the patient, reassess the patient, monitoring vital signs, review labs, and radiographic studies, counseling the patient/family, discussing the case with consultants, disposition the patient. Discharge Plan Discharge Clinical Impression: Asthma Patient Disposition: Home, Self-Care Instructions: Asthma (ED) Prescriptions: New prednisone 20 mg tablet 20 mg PO BID Qty: 10 0RF No Action prednisone 20 mg tablet 40 mg PO DAILY Qty: 10 0RF albuterol sulfate [ProAir HFA] 90 mcg/actuation HFA aerosol inhaler 2 puff inhalation Q4-6H PRN (Reason: Wheezing) Qty: 8.5 0RF prednisone 20 mg tablet 40 mg PO DAILY Qty: 10 0RF albuterol sulfate [ProAir HFA] 90 mcg/actuation HFA aerosol inhaler 2 puff inhalation Q4-6H PRN (Reason: shortness of breath or wheezing) Qty: 8.5 3RF albuterol sulfate 2.5 mg /3 mL (0.083 %) solution for nebulization 2.5 mg inhalation Q4-6H PRN (Reason: shortness of breath or wheezing) Qty: 90 0RF prednisone 50 mg tablet 50 mg PO DAILY 4 Days Qty: 4 0RF fluticasone propion-salmeterol [Advair Diskus] 500-50 mcg/dose blister with device 1 inh inhalation BID Qty: 60 0RF (DME) nebulizer and compressor Device See Rx Instructions .Route Qty: 1 0RF Rx Instructions: As directed albuterol sulfate 90 mcg/actuation HFA aerosol inhaler 2 puff inhalation Q4-6H PRN (Reason: shortness of breath or wheezing) Qty: 8.5 0RF (DME) nebulizers [Aeroneb Go Nebulizer] Misc See Rx Instructions .Route Qty: 1 0RF Rx Instructions: As directed montelukast [Singulair] 10 mg Tablet 10 mg PO DAILY albuterol sulfate 2.5 mg /3 mL (0.083 %) solution for nebulization 2.5 mg inhalation Q4-6H PRN (Reason: shortness of breath or wheezing) Qty: 90 0RF albuterol sulfate 90 mcg/actuation HFA aerosol inhaler 1 inh inhalation QID PRN (Reason: shortness of breath or wheezing) Qty: 8.5 0RF prednisone 20 mg tablet 20 mg PO BID Qty: 10 0RF albuterol sulfate 90 mcg/actuation aerosol powdr breath activated 2 inh inhalation Q4-6H PRN (Reason: shortness of breath or wheezing) Qty: 1 0RF albuterol sulfate 2.5 mg /3 mL (0.083 %) solution for nebulization 2.5 mg inhalation Q6H Qty: 75 0RF prednisone 20 mg tablet 40 mg PO DAILY 5 Days Qty: 10 0RF albuterol sulfate 90 mcg/actuation HFA aerosol inhaler 2 puff inhalation Q4-6H PRN (Reason: shortness of breath or wheezing) Qty: 8.5 1RF prednisone 50 mg tablet 50 mg PO DAILY Qty: 5 0RF pantoprazole [Protonix] 40 mg tablet,delayed release (DR/EC) 40 mg PO DAILY Qty: 30 0RF sucralfate 1 gram tablet 1 g PO BID Qty: 60 0RF albuterol sulfate 5 mg/mL solution for nebulization 5 mg inhalation Q4H PRN (Reason: shortness of breath or wheezing) Qty: 600 0RF prednisone 10 mg tablets,dose pack See Taper PO DAILY Qty: 48 0RF Taper: Prednisone 40 mg daily for 3 Days and 0 Hour 30 mg daily for 3 Days and 0 Hour 20 mg daily for 3 Days and 0 Hour 10 mg daily for 3 Days and 0 Hour albuterol sulfate [Ventolin HFA] 90 mcg/actuation HFA aerosol inhaler 1 inh inhalation QID PRN (Reason: shortness of breath or wheezing) Qty: 8.5 0RF prednisone 10 mg tablets,dose pack See Taper PO DAILY Qty: 48 0RF Taper: Prednisone 40 mg daily for 3 Days and 0 Hour 30 mg daily for 3 Days and 0 Hour 20 mg daily for 3 Days and 0 Hour 10 mg daily for 3 Days and 0 Hour albuterol sulfate 5 mg/mL solution for nebulization 5 mg inhalation Q4H PRN (Reason: shortness of breath or wheezing) Qty: 600 0RF cyclobenzaprine 10 mg tablet 10 mg PO TID PRN (Reason: muscle spasm) Qty: 14 0RF prednisone 50 mg tablet 50 mg PO DAILY 4 Days Qty: 4 0RF prednisone 20 mg tablet 60 mg PO DAILY 5 Days Qty: 15 0RF albuterol sulfate 90 mcg/actuation HFA aerosol inhaler 2 puff inhalation Q4-6H PRN (Reason: shortness of breath or wheezing) Qty: 8.5 0RF albuterol sulfate 2.5 mg/0.5 mL solution for nebulization 5 mg inhalation Q6H PRN (Reason: shortness of breath or wheezing) Qty: 30 0RF prednisone 20 mg tablet 40 mg PO DAILY 5 Days Qty: 10 0RF albuterol sulfate 90 mcg/actuation aerosol powdr breath activated 2 inh inhalation Q6H PRN (Reason: sob) Qty: 1 0RF albuterol sulfate 2.5 mg /3 mL (0.083 %) solution for nebulization 2.5 mg inhalation Q6H PRN (Reason: shortness of breath or wheezing) Qty: 90 0RF cyclobenzaprine 10 mg tablet 10 mg PO TID PRN (Reason: pain, muscle spasm) Qty: 15 0RF prednisone 20 mg tablet 60 mg PO DAILY 5 Days Qty: 15 0RF acetaminophen [Tylenol Extra Strength] 500 mg tablet 1,000 mg PO Q6H PRN (Reason: fever or pain) Qty: 20 0RF albuterol sulfate 1.25 mg/3 mL solution for nebulization 1.25 mg inhalation Q4-6H PRN (Reason: shortness of breath or wheezing) Qty: 90 0RF prednisone 20 mg tablet 60 mg PO DAILY Qty: 12 0RF albuterol sulfate 90 mcg/actuation HFA aerosol inhaler 2 puff inhalation QID PRN (Reason: shortness of breath or wheezing) Qty: 8.5 0RF albuterol sulfate 2.5 mg /3 mL (0.083 %) solution for nebulization 2.5 mg inhalation Q6H Qty: 75 0RF albuterol sulfate 90 mcg/actuation aerosol powdr breath activated 2 inh inhalation Q4-6H PRN (Reason: shortness of breath or wheezing) Qty: 1 0RF prednisone 50 mg tablet 50 mg PO DAILY 5 Days Qty: 5 0RF doxycycline hyclate 100 mg capsule 100 mg PO BID 10 Days Qty: 20 0RF
[2023-10-05 10:49] LABS: COVID-19 Test Negative (Negative); IDNOW Serial# 08D9AD1C; IDNOW Serial# 152EDE1D; Influenza A Negative (Negative); Influenza B2 Negative (Negative)
[2023-10-05] MEDS: predniSONE 20 MG TABLET 40 MG PO (10:49)
[2023-10-05 10:58] VITALS: BP 144/55; PULSE 126; RESP 22; O2SAT 95
[2023-10-05 11:05] VITALS: PULSE 126; RESP 16; O2SAT 94
[2023-10-05] MEDS: levalbuterol HCL 2.5 MG, Ipratropium Bromide 0.5 MG INHALE (11:05)
[2023-10-05] MEDS: Albuterol Sulfate 90 MCG 8 GM INHALER 2 PUFF INHALE (11:09)
[2023-10-05 13:06] VITALS: BP 129/80; PULSE 113; RESP 18; TEMP 36.6; O2SAT 97
== END 2023-10-05 13:07 | disposition home or self-care (01) ==
PROVIDERS: Emergency Provider Emergency Medicine
DX: J45.909 Unspecified asthma, uncomplicated (principal); R06.02 Shortness of breath; Z79.899 Other long term (current) drug therapy; Z11.52 Encounter for screening for COVID-19
CPT/HCPCS: 87502; 87635; 94640; 99285

== ENCOUNTER 2023-10-08 12:41 | Observation (INO) | payer MEDICAID, SELFPAY ==
[2023-10-08] VITALS (7 sets, daily range): BP systolic 138–147; BP diastolic 66–90; PULSE 112–119; RESP 15–26; TEMP 36.8–36.9; O2SAT 91–94; BMI 38.3
--- NOTE | ~2023-10-08 | XR_ITS ---
EXAMINATION: XR CHEST CLINICAL INFORMATION: Difficulty breathing. COMPARISON: Chest radiograph dated 09/23/2023. TECHNIQUE: 2 views of the chest were obtained. FINDINGS: The trachea is in normal anatomic position. Heart size remains normal. There is no consolidation within either lung. There is no pleural effusion or pneumothorax. No acute osseous abnormality. XR/XR chest 2V IMPRESSION: Stable appearance of the heart and lungs. No active disease.
--- NOTE | 2023-10-08 12:43 | ED.SOB ---
HPI - SOB/Dyspnea General Chief Complaint: Upper Respiratory Symptoms Stated Complaint: Asthma Time Seen by Provider: 10/08/23 12:54 Source: patient, RN notes reviewed and old records reviewed Mode of arrival: ambulatory Limitations: no limitations History of Present Illness HPI Narrative: 28 year old male with pmhx significant for asthma requiring multiple hospitalizations presents to the ED today from home for evaluation of difficulty breathing and chest tightness x3 days. Admits to taking over 20 puffs of his inhaler this morning prior to coming to the ED. He endorses diffuse chest tightness and difficulty breathing. He cannot lay flat as this makes it hard for him to breath. He states that this feels like a typical asthma exacerbation. His last hospital admission for asthma exacerbation was a few months ago. He has never required intubation. He was seen in our ED 5 days go for same and discharged home with a prescription for prednisone. He states that he never picked this up from the pharmacy. Denies fever, chills, sore throat, chest pain, calf pain/swelling. Denies recent travel or long car rides. Denies known sick contacts. Related Data Home Medications Medication Instructions Recorded Confirmed albuterol sulfate 2.5 mg/3 mL 2.5 mg inhalation Q6H PRN wheezing 10/08/23 10/08/23 (0.083 %) solution for nebulization albuterol sulfate 90 mcg/actuation 2 puff inhalation Q4-6H PRN 10/08/23 10/08/23 aerosol inhaler wheezing fluticasone 500 mcg-salmeterol 50 1 inh inhalation BID 10/08/23 10/08/23 mcg/dose blistr powdr for inhalation (Advair Diskus) montelukast 10 mg tablet 10 mg PO DAILY 10/08/23 10/08/23 Previous Rx's Medication Instructions Recorded nebulizer and compressor #1 ea 09/15/21 nebulizers (Aeroneb Go Nebulizer) #1 ea 04/18/22 prednisone 20 mg tablet 20 mg PO DAILY #5 tabs 10/08/23 Allergies Allergy/AdvReac Type Severity Reaction Status Date / Time shellfish derived Allergy Severe SHORTNESS Verified 10/05/23 10:10 OF BREATH, SWELLING shrimp Allergy Severe ANAPHYLAXIS Verified 10/05/23 10:10 Review of Systems Review of Systems: Constitutional: No fever, chills, fatigue, night sweats, weight changes ENT/Mouth: No ear pain, hearing loss, nasal congestion, sinus pain, rhinorrhea, sore throat Eyes: No eye pain, swelling, redness, vision changes, discharge Cardio: No palpitations, MYERS, orthopnea, peripheral edema, +chest tightness Pulm: No SOB, cough, sputum, wheezing, hemoptysis, +difficulty breathing GI: No nausea, vomiting, hematemesis, abdominal pain, diarrhea, constipation, hematochezia, melena : No irregular bleeding, dysuria, frequency, urgency, hesitancy, hematuria, flank pain, urinary flow changes, urinary incontinence or retention MSK: No back pain, neck pain, joint pain, myalgias Skin: No lesions, rashes Neuro: No weakness, numbness, paresthesias, LOC, dizziness, headache Psych: No anxiety/panic, depression, SI/HI, AH/VH All other systems reviewed and are negative. [facility] Past Medical History Attestation statement: The following information was validated with the patient. Source: old records reviewed and nursing notes reviewed Medical History Asthma Pneumonia due to 2019 novel coronavirus Asthma Family History Family History Mother Asthma Social History Social History Household Members: None Housing: House Do you presently have visiting nurse or other home services: No Alcohol intake: never Patient Tobacco Use Status: Never used Tobacco Advance Directives: No service: No Current occupational status: unemployed Physical Exam Vital Signs: Vital Signs: Last Vital Signs Temp 98.3 F 10/08/23 17:19 Pulse 116 H 10/08/23 17:47 Resp 18 10/08/23 17:47 BP 147/66 H 10/08/23 17:19 Pulse Ox 92 10/08/23 17:19 O2 Del Method Nasal Cannula 10/08/23 17:19 O2 Flow Rate 3 10/08/23 17:19 Oxygen Flow Rate 3 10/08/23 13:21 BMI result Body Mass Index 38.3 Hypertensive, tachycardic, hypoxic Const: Other: + tripoding, speaking in full sentences, nontoxic appearing General: cooperative Nutritional Appearance: obese Orientation/consciousness: patient oriented x3 Limitations: no limitations HEENT: Other: + posterior oropharynx without erythema or edema, no tonsilar edema or exudates, uvula midline, controlling secretions Head: Yes normal to inspection, Yes normocephalic and Yes atraumatic Eyes: General: appearance normal, both eyes and all related structures Conjunctivae: conjunctivae normal Sclerae: sclerae normal Pupils: Equal, round and reactive pupils present Neck: Neck: Yes normal visual inspection and Yes no lymphadenopathy Resp: Other: + tripoding, diffuse expiratory wheezes and rhonchi, airway patent Effort & Inspection: able to speak in complete sentences and no stridor Cardio: Jugular venous distension: no JVD Rate: tachycardic GI: Inspection: Yes normal to inspection Palpation (GI): Soft to palpation and nontender Skin: General skin exam: no rashes or lesions noted Neuro: General: patient oriented x3 and gait normal Cranial nerves: Yes Equal, round and reactive pupils present Course Course Course Narrative: This is an RME: Additional HPI, ROS, PE not included below will be deferred to primary provider. Patient is a 28-year-old male who presents emergency department for evaluation of shortness of breath/ asthma exacerbation. Reports that he was seen here a few days ago for similar symptoms, was supposed to have a prescription for prednisone sent to the pharmacy but he states when he arrived it was not available to him, he feels as though this would significantly help him. He has not had any relief from his home inhaler/nebulizers. Reporting chest tightness and wheezing. Reevaluation(s) Reevaluation #1: 1319-- Patient tachycardic to 119 likely due to excessive albuterol use prior to arrival in ED. He is sating 91L on RA. Placed on 2L oxygen. ED bronch protocol ordered in triage. IV solu medrol and mag sulfate ordered by me. Patient transferred from [facility] room to main ED for continuous cardiac monitoring. 1407-- On re-evaluation, patient states breathing has somewhat improved with RT breathing treatment, solu medrol, and mag sulfate. On exam, there are still diffuse expiratory wheezes. awaiting CXR read. 1447-- chest x-ray unremarkable. There are no consolidations or infiltrates to suggest pneumonia. No effusion. On re-evaluation, patient still with diffuse expiratory wheezes. Will present to hospitalist for admission. 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 1516-- Hospitalist has accepted admission for acute asthma exacerbation > Dr. Alfred to place admission orders. 1630-- Received a call from Dr. Alfred stating that patient is no longer agreeable to admission and would like to go home. I then spoke to patient at bedside who is stating that he is no longer able to stay as he has no one to watch his children tonight. He states that their mother will be back in town tomorrow and that he will return to the ED if he continues to have symptoms. I discussed the need for admission for IV steroid treatment and that without this there could be various complications including . I discussed all of these risks with the patient who verbalizes understanding and still chooses to leave against medical advice. > patient is still hypertensive, tachycardic and sating 92% on 3L nasal cannula. I do not believe he is stable to leave the emergency department. i educated him on albuterol use and rebound tachycardia > advised him to come to the ED if he finds himself SOB despite a few puffs from his inhaler as he likely needs further intervention. > Unable to discharge patient from ED due to current admission orders- hospitalist to place discharge. A 5 day script of prednisone will be sent to patient's pharmacy per hospiatlist [facility] as I am unable to place order. Medications Administered Discontinued Medications Generic Name Dose Route Start Last Admin Trade Name Freq PRN Reason Stop Dose Admin Albuterol Sulfate 2.5 mg/ 5 mg 10/08/23 15:16 10/08/23 15:21 Albuterol Sulfate 2.5 mg INHALE 10/08/23 15:17 5 mg ONCE ONE Administration Albuterol/Ipratropium 3 ml 10/08/23 16:30 10/08/23 17:44 Albuterol/Iprat 2.5/0.5mg 3 Ml Ampul.Neb INHALE 3 ml Q4H [facility] Administration Albuterol/Ipratropium 3 ml 10/08/23 16:30 10/08/23 17:55 Albuterol/Iprat 2.5/0.5mg 3 Ml Ampul.Neb INHALE Not Given Q3H ENRIKE Albuterol Sulfate 5 mg/ 0 mg 10/08/23 13:37 10/08/23 13:38 Albuterol/Ipratropium 3 ml INHALE 10/08/23 13:38 1 each ONCE ONE Administration Magnesium Sulfate 2 gm in 50 mls @ 25 mls/hr 10/08/23 13:14 10/08/23 15:27 Magnesium Sulfate/H2o IV 10/08/23 15:13 Infused ONCE ONE Infusion Methylprednisolone Sodium Succinate 125 mg 10/08/23 12:57 10/08/23 13:06 Methylprednisolone Sod Succ 125 Mg/2 Ml Vial IVPUSH 10/08/23 12:58 125 mg ONCE ONE Administration Medical Decision Making Medical Decision Making MDM Narrative: 28 year old male with pmhx significant for asthma requiring multiple hospitalizations presents to the ED today from home for evaluation of difficulty breathing and chest tightness x3 days. He is hypertensive, tachycardic and hypoxic- sating 91% on RA. Placed on 2L O2. Nontoxic appearing however tripoding. Airway patent. No stridor or muffled voice. Speaking in full sentences. Posterior oropharynx wnl. Lungs with diffuse expiratory wheezes and rhonchi. Differential includes acute asthma exacerbation, respiratory distress, pneumonia, bronchitis. less likely pulmonary embolism, acs, arrhythmia Plan for steroids, ED bronch protocol, and CXR Differential Diagnosis Differential Diagnoses: The differential diagnosis associated with the presentation includes As above Admission/Observation Consideration of admission/observation: Escalation of care including admission/observation considered Patient with acute exacerbation of asthma will be admitted for treatment with IV steroids. Consult Healthcare Provider Management of the patient was discussed with: Hospitalist (Dr. Alfred) Independent Interpretation I performed an independent interpretation of an: Plain X-Ray Interpretation: I have reviewed CXR and agree with radiologist's interpretation. Radiology Impression Discussion of test interpretation with radiology: I have reviewed the radiologist's reading. Radiologist Impression: XR chest 2V IMPRESSION: Stable appearance of the heart and lungs. No active disease. External Record Review External record reviewed: Inpatient record, Office record, Outpatient record, Prior outpatient labs, Prior outpatient radiology, Primary care record and Outside ED record Prescription Management I considered prescription management with: Other (steroid) Chronic Conditions Patient?s care impacted by: Other (asthma) Social Determinants Patient?s care significantly limited by Social Determinants of Health including: Other Social Determinant of Health Critical Care Time Critical Care Time Critical Care Time: Yes Total Critical Care Time: 50 Attestation: Critical care time in the amount of 50 minutes has been provided to the patient in terms of direct patient care, frequent reevaluation, consultation with hospitalist and RT, review and interpretation of medical data and results, and management of potentially life-threatening conditions. This is all outside of any medical procedures. Discharge Plan Discharge Clinical Impression: Asthma exacerbation Patient Disposition: Left Against Medical Advice Interventions: ED Discharge Assessment Last Done: 10/08/23 19:03 Discharge Date/Time: 10/08/23 19:04
[2023-10-08] MEDS: methylPREDNISolone Sod Succ 125 MG/2 ML VIAL IVPUSH (13:06)
[2023-10-08] MEDS: Magnesium Sulfate/H2O 2 GM/50 ML PIGGYBACK IV (13:21)
--- NOTE | 2023-10-08 13:21 | ECG_ITS ---
Test Reason : SOB Blood Pressure : / mmHG Vent. Rate : 112 BPM Atrial Rate : 112 BPM P-R Int : 138 ms QRS Dur : 094 ms QT Int : 310 ms P-R-T Axes : 064 075 028 degrees QTc Int : 423 ms Sinus tachycardia Otherwise normal ECG When compared with ECG of 02-AUG-2023 22:54, No significant change was found Referred By: Anat Ferrell Electronically Signed By:ERIKA VILLARREAL
--- NOTE | 2023-10-08 13:37 | PC.NURSE ---
Patient brought from [facility] to room 8. Now resting upright, respirations even and mildly labored on 3 liters nasal cannula. Pt placed on quality assurance monitor body, found to be tachycardic secondary to excessive albuterol use this am. Pt satting 93% at this time. Pt offers no complaints at this time
[2023-10-08] MEDS: Albuterol Sulfate 5 MG, Albuterol/Iprat 2.5/0.5MG 3 ML 3 ML INHALE (13:38)
[2023-10-08] MEDS: Albuterol Sulfate 2.5 MG, Albuterol Sulfate (0.083%) 2.5 MG 5 MG INHALE (15:21)
--- NOTE | 2023-10-08 16:42 | P.HPHOSP_ITS ---
History of Present Illness Date of Service: 10/08/23 Attending physician on admission: Alejandro Alfred Chief Complaint: sob 28 y/o M pmhx asthma requiring multiple hospitalizations presents to the ED today for evaluation of difficulty breathing and chest Admits to taking over 20 puffs of his inhaler this morning prior to coming to the ED. He endorses diffuse chest tightness and difficulty breathing. He cannot lay flat as this makes it hard for him to breath. He states that this feels like a typical asthma exacerbation. His last hospital admission for asthma exacerbation was a few months ago. He has never required intubation. He was seen in our ED 5 days go for same and discharged home with a prescription for prednisone. He states that he never picked this up from the pharmacy. Denies fever, chills, sore throat, chest pain, calf pain/swelling. Denies recent travel or long car rides. Denies known sick contacts. [facility] Medical History Asthma Pneumonia due to 2019 novel coronavirus Asthma Family History Mother Asthma Social History Household Members: None Housing: House Do you presently have visiting nurse or other home services: No Alcohol intake: never Patient Tobacco Use Status: Never used Tobacco Advance Directives: No service: No Current occupational status: unemployed Meds Allergies Allergy/AdvReac Type Severity Reaction Status Date / Time shellfish derived Allergy Severe SHORTNESS Verified 10/05/23 10:10 OF BREATH, SWELLING shrimp Allergy Severe ANAPHYLAXIS Verified 10/05/23 10:10 Active Medications: Current Medications Albuterol/Ipratropium (Albuterol/Iprat 2.5/0.5mg 3 Ml Ampul.Neb) 3 ml INHALE Q4H [facility] Albuterol/Ipratropium (Albuterol/Iprat 2.5/0.5mg 3 Ml Ampul.Neb) 3 ml INHALE Q 3H ENRIKE Methylprednisolone Sodium Succinate (Methylprednisolone Sod Succ 40 Mg/Ml Vial) 40 mg IVPUSH BID ENRIKE Sodium Chloride (0.9 % Sodium Chloride Flush 3 Ml Syringe) 3 ml IVFLUSH QSHIFT [facility] Home Medications Medication Instructions Recorded Confirmed Last Taken Type albuterol sulfate 2.5 mg/3 mL 2.5 mg inhalation Q6H PRN wheezing 10/08/23 Unknown History (0.083 %) solution for nebulization albuterol sulfate 90 mcg/actuation 2 puff inhalation Q4-6H PRN 10/08/23 Unknown History aerosol inhaler wheezing Physical Exam Vital Signs and Narrative: Vital Signs: Last Vital Signs Temp 98.4 F 10/08/23 12:44 Pulse 116 H 10/08/23 15:22 Resp 24 H 10/08/23 15:22 BP 138/90 H 10/08/23 12:44 Pulse Ox 93 10/08/23 13:23 O2 Del Method Nasal Cannula 10/08/23 13:23 O2 Flow Rate 3 10/08/23 13:23 Oxygen Flow Rate 3 10/08/23 13:21 BMI result Body Mass Index 38.3 Results Imaging Radiologist's Impressions: Impressions Chest X-Ray 10/08/23 13:11 IMPRESSION: Stable appearance of the heart and lungs. No active disease. Quality VTE VTE Risk Level:: Medical - moderate - high VTE Device Contraindication: N/A - Device Ordered VTE Drug Contraindication: N/A - Med Ordered
--- NOTE | 2023-10-08 16:57 | PHA.MEDREC ---
Pharmacy Consult ? Medication Reconciliation Pharmacy has completed the medication reconciliation. Spoke to pt to confirm meds. Per patient, they ran out of Advair medication, but should still be on it. Also on Singulair 10mg daily.
--- NOTE | 2023-10-08 17:13 | PC.NURSE ---
pt stating he cannot stay for admission. pt does not have anyone to take care of his kids. Dr. Tima haile.
--- NOTE | 2023-10-08 17:29 | PC.NURSE ---
admission orders have been cancelled. 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 pt sts he will stay here until 1900 when his kids need to be picked up. all providers aware.
[2023-10-08] MEDS: Albuterol/Iprat 2.5/0.5MG 3 ML AMPUL.NEB INHALE (17:44)
--- NOTE | 2023-10-08 19:03 | PC.NURSE ---
prescription sent to pharmacy via [facility]. pt educated on discharge on leaving AMA. will return tomorrow if symptoms worsen.
--- NOTE | 2023-10-08 20:18 | PM.DS ---
DS: Providers Provider Date of Service: 10/08/23 Date of admission: 10/08/23 16:30 Primary care physician: None Physician DS: Diagnosis Discharge Diagnosis (1) Asthma exacerbation: Status: Acute DS: Summary Hospital Course Hospital Course: Patient is a 28-year-old male with PMH significant for moderate persistent asthma requiring multiple hospitalization who presented to the ED for evaluation of shortness of breath, difficulty breathing, and chest tightness x3 days. Patient was given Solu-Medrol, Mag sulfate, DuoNebs, and multiple inhaler treatments in the ED with little resolution of symptoms and patient was scheduled to be admitted into the hospital. Was seen and evaluated by hospitalist services and initial admission orders were placed; however, approximately 15 minutes later patient decided he did not want to be admitted to hospital in left AMA despite being told his symptoms could worsen up to and including . Patient stated that he needed to go home because there was no one to watch his kids for him. Of note, patient has left AMA multiple times in the past for similar reasons. Time Attestation Discharge coordination time: Less than 30 minutes Quality: Safe Use of Opioids Does Pt have an Active Cancer Diagnosis on the Problem List?: No Quality: Stroke Does the patient have a stroke diagnosis?: No Physical Exam Vital Signs: Vital Signs: Last Vital Signs Temp 98.3 F 10/08/23 17:19 Pulse 116 H 10/08/23 17:47 Resp 18 10/08/23 17:47 BP 147/66 H 10/08/23 17:19 Pulse Ox 92 10/08/23 17:19 O2 Del Method Nasal Cannula 10/08/23 17:19 O2 Flow Rate 3 10/08/23 17:19 Oxygen Flow Rate 3 10/08/23 13:21 BMI result Body Mass Index 38.3 Patient left AMA before full admission to the hospital Discharge Plan Discharge Anticipated Discharge Date/Time: 10/08/23 18:00 Patient Disposition: Left Against Medical Advice Discharge Diagnosis: Asthma exacerbation Discharge Medications: New prednisone 20 mg tablet 20 mg PO DAILY Qty: 5 0RF Rx Instructions: Take one tablet daily for five days. Continued (DME) nebulizer and compressor Device See Rx Instructions .Route Qty: 1 0RF Rx Instructions: As directed (DME) nebulizers [Aeroneb Go Nebulizer] Misc See Rx Instructions .Route Qty: 1 0RF Rx Instructions: As directed albuterol sulfate 2.5 mg /3 mL (0.083 %) solution for nebulization 2.5 mg inhalation Q6H PRN (Reason: wheezing) albuterol sulfate 90 mcg/actuation HFA aerosol inhaler 2 puff inhalation Q4-6H PRN (Reason: wheezing) fluticasone propion-salmeterol [Advair Diskus] 500-50 mcg/dose Blister With Device 1 inh INHALATION BID montelukast 10 mg Tablet 10 mg PO DAILY Discharge Orders: Discharge Order (Routine); Ordered 10/08/23 Ordered By: Dirk Vásquez Diet: Advance to usual diet Activity on Discharge: As tolerated Care Plan Goals: Resume all home meds For recovery from asthma exacerbation Health Concerns: If experiencing increased or continued shortness of breath and/or difficulty breathing return to ED for further evaluation Plan of Treatment: Take 1 tab prednisone daily x5 days Resume home inhalers Assessment: See discharge summary Discharge Date/Time: 10/08/23 19:23
== END 2023-10-08 19:23 | disposition left against medical advice (07) ==
LOC: HO.ED 13:14 → HO.EDOVER 16:40
PROVIDERS: Admitting Provider Internal Medicine; Emergency Provider Emergency Medicine; Visit Provider Internal Medicine
DX: J45.41 Moderate persistent asthma with (acute) exacerbation (principal); R07.89 Other chest pain; R00.0 Tachycardia, unspecified; R06.02 Shortness of breath
CPT/HCPCS: 71046; 93005; 94640; 96365; 96366; 96375; 99221; 99285; J2930; J3475

== ENCOUNTER → 2023-10-08 13:21 | Outpatient (BNV) | payer MEDICAID, SELFPAY | PROVIDERS: Admitting Provider Internal Medicine; Emergency Provider Emergency Medicine; Visit Provider Internal Medicine | DX: R00.0 Tachycardia, unspecified (principal) | CPT/HCPCS: 93010 ==

== ENCOUNTER → 2023-10-08 16:30 | Outpatient (BNV) | payer MEDICAID, SELFPAY | PROVIDERS: Admitting Provider Internal Medicine; Emergency Provider Emergency Medicine; Visit Provider Student in an Organized Health Care Education/Training Program | DX: J45.41 Moderate persistent asthma with (acute) exacerbation (principal); Z53.29 Procedure and treatment not carried out because of patient's decision for other reasons | CPT/HCPCS: 99222 ==

== ENCOUNTER 2023-11-12 23:56 | Emergency (ER) | payer MEDICAID, SELFPAY ==
--- NOTE | ~2023-11-12 | XR_ITS ---
EXAMINATION: XR CHEST CLINICAL INFORMATION: Dyspnea, cough COMPARISON: None available. TECHNIQUE: Frontal view of the chest was obtained. FINDINGS: Lung volumes are symmetric. No focal consolidation is seen. There is suggestion of central peribronchial thickening. No evidence of pneumothorax or pleural effusion. The cardiomediastinal contour is unremarkable. No acute osseous findings are seen. XR/XR chest 1V IMPRESSION: No focal consolidation. Suggestion of central peribronchial thickening which may reflect airways disease.
[2023-11-13 00:02] VITALS: BP 136/68; PULSE 98; RESP 20; TEMP 36.7; O2SAT 92; BMI 38.3
--- NOTE | 2023-11-13 00:10 | ED.ASTHMA ---
HPI - Asthma General Chief Complaint: Dyspnea Stated Complaint: asthma Time Seen by Provider: 11/13/23 00:01 Source: patient and old records reviewed Mode of arrival: ambulatory Limitations: no limitations History of Present Illness HPI Narrative: 28 yo male well known to us for hx of asthma who has been having a hard time this month due to the frequent rain. He usually comes to the ED with low O2 sats gets nebs and treatments IV mag and steroids and leaves AMA. He notes 2 days of cough and wheezing no fevers no other symptoms MD complaint: asthma attack , shortness of breath and wheezing Onset (ago): day(s) (2) Severity: similar to prior Context: other (thinks the rain bothers him) Associated symptoms: dry cough Asthma History: childhood onset Treatments Prior to Arrival: inhaled bronchodilator Related Data Home Medications Medication Instructions Recorded Confirmed albuterol sulfate 2.5 mg/3 mL 2.5 mg inhalation Q6H PRN wheezing 10/08/23 10/08/23 (0.083 %) solution for nebulization albuterol sulfate 90 mcg/actuation 2 puff inhalation Q4-6H PRN 10/08/23 10/08/23 aerosol inhaler wheezing fluticasone 500 mcg-salmeterol 50 1 inh inhalation BID 10/08/23 10/08/23 mcg/dose blistr powdr for inhalation (Advair Diskus) montelukast 10 mg tablet 10 mg PO DAILY 10/08/23 10/08/23 Previous Rx's Medication Instructions Recorded nebulizer and compressor #1 ea 09/15/21 nebulizers (Aeroneb Go Nebulizer) #1 ea 04/18/22 prednisone 20 mg tablet 20 mg PO DAILY #5 tabs 10/08/23 prednisone 20 mg tablet 40 mg (2 x 20 mg) PO DAILY 5 days 11/13/23 #10 tabs Allergies Allergy/AdvReac Type Severity Reaction Status Date / Time shellfish derived Allergy Severe SHORTNESS Verified 11/13/23 00:01 OF BREATH, SWELLING shrimp Allergy Severe ANAPHYLAXIS Verified 11/13/23 00:01 Review of Systems Review of Systems: Constitutional : No Fever, No Chills ENT/Mouth : No Hoarseness, No sore throat, No Rhinorrhea Eyes: No Redness, No Discharge, No Vision Changes Cardiovascular : No Chest Pain, positive SOB, positive Dyspnea on Exertion, No Edema Respiratory : positive Cough, No Sputum, positive Wheezing, Gastrointestinal : No Nausea, No Vomiting, No Diarrhea, No abdominal Pain Genitourinary : No Dysuria, No Hematuria Musculoskeletal : No joint pain, No Myalgias Skin : No rash Neuro : No Weakness, No Numbness, No Headache Psych : No anxiety, depression Heme/Lymph: No Bruising, No Bleeding Endocrine : No Polyuria, No Polydipsia All other systems reviewed and are negative [facility] Past Medical History Attestation statement: The following information was validated with the patient. Source: old records reviewed Medical History Asthma Pneumonia due to 2019 novel coronavirus Asthma Family History Family History Mother Asthma Social History Social History Household Members: None Housing: House Do you presently have visiting nurse or other home services: No Alcohol intake: never Patient Tobacco Use Status: Never used Tobacco Advance Directives: No Advance Directives Information Provided: No service: No Current occupational status: unemployed Physical Exam Vital Signs: Vital Signs: Last Vital Signs Temp 97.9 F 11/13/23 02:43 Pulse 120 H 11/13/23 02:43 Resp 20 11/13/23 02:43 BP 127/76 11/13/23 02:43 Pulse Ox 95 11/13/23 02:43 O2 Del Method Room Air 11/13/23 02:43 BMI result Body Mass Index 38.3 Appearance: Alert. Oriented X3. Mild acute distress. Eyes: Pupils equal, round and reactive to light. ENT: Pharynx normal. Neck: Normal inspection. Neck supple. CVS: Normal heart rate and rhythm. Pulses normal. Respiratory: Mild respiratory distress - tachypnea and retractions. Breath sounds diffuse exp and insp wheezes Abdomen: Soft and nontender. Skin: Skin warm and dry. Normal skin color. Normal skin turgor. Extremities: No lower extremity edema. No calf ttp Neuro: Oriented X 3. No motor deficit. No sensory deficit. Medications Administered Discontinued Medications Generic Name Dose Route Start Last Admin Trade Name Freq PRN Reason Stop Dose Admin Albuterol Sulfate 10 mg 11/13/23 00:10 11/13/23 00:13 Albuterol Sulfate (0.083%) 2.5 Mg/3 Ml Vial.Neb INHALE 11/13/23 00:11 10 mg ONCE ONE Administration Albuterol Sulfate 2.5 mg/ 0 mg 11/13/23 01:12 11/13/23 01:26 Albuterol/Ipratropium 3 ml INHALE 11/13/23 01:13 5 dose ONCE ONE Administration Magnesium Sulfate 2 gm in 50 mls @ 150 mls/hr 11/13/23 00:01 11/13/23 00:43 Magnesium Sulfate/H2o IV 11/13/23 00:20 Infused ONCE ONE Infusion Methylprednisolone Sodium Succinate 125 mg 11/13/23 00:01 11/13/23 00:23 Methylprednisolone Sod Succ 125 Mg/2 Ml Vial IVPUSH 11/13/23 00:02 125 mg ONCE ONE Administration Medical Decision Making Medical Decision Making [facility] Narrative: 28 yo male with PMH of severe asthma here with typical exacerbation at this time labs, hour long neb, IV steroids, IV magnesium - dispo per results and improvement. Blames weather for trigger not infectious symptoms. Differential Diagnosis Differential Diagnoses: The differential diagnosis associated with the presentation includes asthma, URI Admission/Observation Consideration of admission/observation: Escalation of care including admission/observation considered offered admission but he declines as usual sats 92%. Lab Data [facility] Lab Attestation statement: I reviewed the patient's lab results. 11/13/23 00:20 11/13/23 00:20 Labs: Lab Results 11/13/23 11/13/23 Range/Units 00:19 00:20 WBC 11.1 H (4.8-10.8) X10*3/uL RBC 5.00 (4.60-5.80) X10*6/uL Hgb 14.0 (14.0-18.0) g/dl Hct 39.7 L (42.0-52.0) % MCV 79.4 L (80.0-98.0) fL MCH 28.0 (27.0-33.0) pg MCHC 35.3 (31.0-36.0) g/dl RDW 12.5 (11.0-16.0) % Plt Count 283 (160-400) X10*3/uL MPV 9.1 L (9.4-12.4) fL Immature Gran % (Auto) 0.4 (0.0-0.4) % Neut % (Auto) 51.1 (45-73) % Lymph % (Auto) 29.9 (20-40) % [place] % (Auto) 8.6 (2-11) % Eos % (Auto) 8.6 H (0-4) % Baso % (Auto) 1.4 (0-2) % Lymph # (Auto) 3.3 (1.2-4.9) X10*3/uL [place] # (Auto) 1.0 (0.1-1.2) X10*3/uL Eos # (Auto) 1.0 H (0.0-0.4) X10*3/uL Baso # (Auto) 0.2 (0.0-0.2) X10*3/uL Abs Immat Gran (auto) 0.04 H (0.00-0.03) X10*3/uL Absolute Neuts (auto) 5.7 (2.0-8.3) x10*3/uL Absolute Nucleated RBC 0.000 (0.0-0.012) X10*3/uL Nucleated RBC % (auto) 0.0 (0.0-0.2) /100WBC Sodium 137 (135-145) mmol/L Potassium 3.9 (3.3-5.1) mmol/L Chloride 104 (96-108) mmol/L Carbon Dioxide 24 (22-29) mmol/L Anion Gap 13 (12-20) BUN 12 (9-16) mg/dL Creatinine 0.84 (0.5-1.4) mg/dL Estim Creat Clear Calc 144.3 Estimated GFR > 60 Random Glucose 109 (60-115) mg/dL Calcium 8.9 (8.4-10.2) mg/dL Influenza Type A (PCR) NEGATIVE (Negative) Influenza Type B (PCR) NEGATIVE (Negative) RSV RNA Qual (PCR) NEGATIVE (Negative) SARS-CoV-2 RNA (RT-PCR) NEGATIVE (Negative) Independent Interpretation I performed an independent interpretation of an: Plain X-Ray Radiology Impression Discussion of test interpretation with radiology: I have reviewed the radiologist's reading. External Record Review External record reviewed: Inpatient record Critical Care Time Critical Care Time Critical Care Time: Yes Total Critical Care Time: 60 Attestation: repeat hour long nebs, IV magnesium, review of records I attest to this time spent taking care of the patient Discharge Plan Discharge Clinical Impression: Asthma with exacerbation Qualifiers: Asthma severity: severe Asthma persistence: persistent Qualified Code(s): J45.51 - Severe persistent asthma with (acute) exacerbation Patient Disposition: Home, Self-Care Instructions: Asthma (ED) Additional Instructions: you were offered admission but refused you can come back at any time. return for increased shortness of breath or any concerns. Prescriptions: New prednisone 20 mg tablet 40 mg PO DAILY 5 Days Qty: 10 0RF No Action (DME) nebulizer and compressor Device See Rx Instructions .Route Qty: 1 0RF Rx Instructions: As directed (DME) nebulizers [Aeroneb Go Nebulizer] Misc See Rx Instructions .Route Qty: 1 0RF Rx Instructions: As directed albuterol sulfate 2.5 mg /3 mL (0.083 %) solution for nebulization 2.5 mg inhalation Q6H PRN (Reason: wheezing) albuterol sulfate 90 mcg/actuation HFA aerosol inhaler 2 puff inhalation Q4-6H PRN (Reason: wheezing) fluticasone propion-salmeterol [Advair Diskus] 500-50 mcg/dose Blister With Device 1 inh INHALATION BID montelukast 10 mg Tablet 10 mg PO DAILY prednisone 20 mg tablet 20 mg PO DAILY Qty: 5 0RF Rx Instructions: Take one tablet daily for five days. Interventions: ED Discharge Assessment Last Done: 11/13/23 02:43 Discharge Date/Time: 11/13/23 02:47
[2023-11-13] MEDS: Albuterol Sulfate (0.083%) 2.5 MG/3 ML VIAL.NEB 10 MG INHALE (00:13)
[2023-11-13] MEDS: Magnesium Sulfate/H2O 2 GM/50 ML PIGGYBACK IV (00:23)
[2023-11-13] MEDS: methylPREDNISolone Sod Succ 125 MG/2 ML VIAL IVPUSH (00:23)
[2023-11-13 00:24] LABS: MANUAL DIFF FLAG NO
[2023-11-13 00:25] LABS: Basophils Absolute Auto 0.2 X10*3/uL (0.0-0.2); Basophils Percent Auto 1.4 % (0-2); Eosinophils Percent Auto 8.6 % (0-4); Hematocrit 39.7 % (42.0-52.0); Imm Gran Abs Auto 0.04 X10*3/uL (0.00-0.03); Imm Gran Pct Auto 0.4 % (0.0-0.4); Lymphocytes Absolute Auto 3.3 X10*3/uL (1.2-4.9); Lymphocytes Percent Auto 29.9 % (20-40); Mean Corpuscular HGB Conc 35.3 g/dl (31.0-36.0); Mean Corpuscular Volume 79.4 fL (80.0-98.0); Mean Platelet Volume 9.1 fL (9.4-12.4); Monocytes Percent Auto 8.6 % (2-11); Neutrophils Absolute Auto 5.7 x10*3/uL (2.0-8.3); Neutrophils Percent Auto 51.1 % (45-73); Platelet Count 283 X10*3/uL (160-400); Red Cell Distribution Width 12.5 % (11.0-16.0); White Blood Count 11.1 X10*3/uL (4.8-10.8)
[2023-11-13 00:36] LABS: Anion Gap 13 (12-20); Blood Urea Nitrogen 12 mg/dL (9-16); Calcium 8.9 mg/dL (8.4-10.2); Carbon Dioxide 24 mmol/L (22-29); Chloride 104 mmol/L (96-108); Creatinine Clr Calc Pharmacy 144.3; Estimated Glomerular Filt Rate > 60; Glucose Random 109 mg/dL (60-115); Potassium 3.9 mmol/L (3.3-5.1); Sodium 137 mmol/L (135-145)
[2023-11-13 01:00] LABS: Influenza A PCR NEGATIVE (Negative); Influenza B PCR NEGATIVE (Negative); Resp Syncy Virus RNA Qual PCR NEGATIVE (Negative); SARS COV2 PCR INHOUSE NEGATIVE (Negative)
[2023-11-13] MEDS: Albuterol Sulfate 2.5 MG, Albuterol/Iprat 2.5/0.5MG 3 ML 3 ML INHALE (01:26)
[2023-11-13 01:27] VITALS: PULSE 102; RESP 20; O2SAT 92
[2023-11-13 02:43] VITALS: BP 127/76; PULSE 120; RESP 20; TEMP 36.6; O2SAT 95
== END 2023-11-13 02:47 | disposition home or self-care (01) ==
PROVIDERS: Emergency Provider Emergency Medicine
DX: J45.51 Severe persistent asthma with (acute) exacerbation (principal); R05.9 Cough, unspecified; R06.00 Dyspnea, unspecified; Z79.899 Other long term (current) drug therapy; Z11.52 Encounter for screening for COVID-19; Z20.822 Contact with and (suspected) exposure to COVID-19
CPT/HCPCS: 0241U; 36415; 71045; 80048; 85025; 94640; 96365; 96375; 99283; 99284; J2919; J2930; J3475

== ENCOUNTER 2023-11-25 23:02 | Emergency (ER) | payer MEDICAID, SELFPAY ==
--- NOTE | ~2023-11-25 | XR_ITS ---
EXAMINATION: XR CHEST CLINICAL INFORMATION: Wheezing. Dyspnea. COMPARISON: 11/13/2023 TECHNIQUE: Frontal view of the chest was obtained. FINDINGS: No significant abnormality is noted involving the heart, lungs, mediastinum, bony thorax or soft tissues. XR/XR chest 1V IMPRESSION: No active cardiopulmonary disease. No significant change.
[2023-11-25 23:15] VITALS: BP 131/88; PULSE 119; RESP 24; TEMP 37.4; O2SAT 92; BMI 38.3
--- NOTE | 2023-11-25 23:34 | ED.ASTHMA ---
HPI - Asthma General Chief Complaint: Asthma Stated Complaint: asthma Time Seen by Provider: 11/25/23 23:34 Source: patient, RN notes reviewed and old records reviewed Mode of arrival: ambulatory Limitations: no limitations History of Present Illness HPI Narrative: 28 year old male with pmhx significant for asthma presents to the ED today for evaluation of worsening shortness of breath and wheezing beginning yesterday. He has been using his rescue inhaler at home without relief. Denies known sick contacts. Denies fever, chills, sore throat, cough, sputum production. No recent travel or long car rides. Related Data Home Medications ?Medication ?Instructions ?Recorded ?Confirmed albuterol sulfate 2.5 mg/3 mL 2.5 mg inhalation Q6H PRN wheezing 10/08/23 10/08/23 (0.083 %) solution for nebulization albuterol sulfate 90 mcg/actuation 2 puff inhalation Q4-6H PRN 10/08/23 10/08/23 aerosol inhaler wheezing fluticasone 500 mcg-salmeterol 50 1 inh inhalation BID 10/08/23 10/08/23 mcg/dose blistr powdr for inhalation (Advair Diskus) montelukast 10 mg tablet 10 mg PO DAILY 10/08/23 10/08/23 Previous Rx's ?Medication ?Instructions ?Recorded nebulizer and compressor #1 ea 09/15/21 nebulizers (Aeroneb Go Nebulizer) #1 ea 04/18/22 prednisone 20 mg tablet 20 mg PO DAILY #5 tabs 10/08/23 prednisone 20 mg tablet 40 mg (2 x 20 mg) PO DAILY 5 days 11/13/23 #10 tabs albuterol sulfate 2.5 mg/3 mL 2.5 mg (3 mL) inhalation Q4-6H PRN 11/26/23 (0.083 %) solution for nebulization shortness of breath or wheezing #90 mL albuterol sulfate 90 mcg/actuation 2 puff inhalation Q4-6H PRN 11/26/23 aerosol inhaler (ProAir HFA) shortness of breath or wheezing #8.5 grams prednisone 20 mg tablet 40 mg (2 x 20 mg) PO DAILY #10 tabs 11/26/23 Allergies Allergy/AdvReac Type Severity Reaction Status Date / Time shellfish derived Allergy Severe SHORTNESS Verified 11/25/23 23:15 OF BREATH, SWELLING shrimp Allergy Severe ANAPHYLAXIS Verified 11/25/23 23:15 Review of Systems Review of Systems: Constitutional: No fever, chills, fatigue, night sweats, weight changes ENT/Mouth: No ear pain, hearing loss, nasal congestion, sinus pain, rhinorrhea, sore throat Eyes: No eye pain, swelling, redness, vision changes, discharge Cardio: No chest pain, palpitations, MYERS, orthopnea, peripheral edema Pulm: No cough, sputum, dyspnea, hemoptysis, +SOB, +wheezing GI: No nausea, vomiting, hematemesis, abdominal pain, diarrhea, constipation, hematochezia, melena : No irregular bleeding, dysuria, frequency, urgency, hesitancy, hematuria, flank pain, urinary flow changes, urinary incontinence or retention MSK: No back pain, neck pain, joint pain, myalgias Skin: No lesions, rashes Neuro: No weakness, numbness, paresthesias, LOC, dizziness, headache Psych: No anxiety/panic, depression, SI/HI, AH/VH All other systems reviewed and are negative. [facility] Past Medical History Attestation statement: The following information was validated with the patient. Source: old records reviewed and nursing notes reviewed Medical History Asthma Pneumonia due to 2019 novel coronavirus Asthma Family History Family History Mother Asthma Social History Social History Household Members: None Housing: House Do you presently have visiting nurse or other home services: No Alcohol intake: never Patient Tobacco Use Status: Never used Tobacco Advance Directives: No Advance Directives Information Provided: No service: No Current occupational status: unemployed Physical Exam Vital Signs: Vital Signs: Last Vital Signs Temp 98.1 F 11/26/23 02:55 Pulse 101 H 11/26/23 02:55 Resp 20 11/26/23 02:55 BP 143/86 H 11/26/23 02:55 Pulse Ox 94 11/26/23 02:55 O2 Del Method Nasal Cannula 11/26/23 02:55 BMI result Body Mass Index 38.3 Patient tachycardic and tachypneic on arrival. Satting 92% on room air Const: Other: in mild respiratory distress General: cooperative Orientation/consciousness: patient oriented x3 Limitations: no limitations HEENT: Head: Yes normal to inspection, Yes No palpable skull fracture present, Yes normocephalic and Yes atraumatic Eyes: General: appearance normal, both eyes and all related structures Conjunctivae: conjunctivae normal Sclerae: sclerae normal Pupils: Equal, round and reactive pupils present Neck: Neck: Yes normal visual inspection, Yes full ROM and Yes no lymphadenopathy Chest: Chest palpation & inspection: normal inspection of the chest and normal palpation of entire chest wall Resp: Other: + increased effort of breathing. Tachypneic. Able to speak in complete sentences. Diffuse expiratory wheezes. Cardio: Jugular venous distension: no JVD Rate: tachycardic Rhythm: regular rhythm Skin: General skin exam: no rashes or lesions noted Neuro: General: patient oriented x3, gait normal and no focal motor deficits Cranial nerves: Yes Equal, round and reactive pupils present Extrem: General: Yes normal to inspection Course Course Course Narrative: 020-- CBC showing leukocytosis to 16.1, likely reactive to recent prednisone. Chemistry without acute electrolyte abnormality requiring intervention. He has tested negative for COVID, flu, RSV. > On re-evaluation, patient continues to have diffuse expiratory wheezes after receiving albuterol, Mag sulfate and methylprednisolone. Will order another albuterol treatment. I discussed admission for further treatment however patient is declining admission at this time. sign out given to my attending dr. melara pending treatment and disposition. Medications Administered Discontinued Medications Generic Name Dose Route Start Last Admin Trade Name Jrq PRN Reason Stop Dose Admin Albuterol Sulfate 7.5 mg/ 10 mg 11/25/23 23:38 11/25/23 23:45 Albuterol Sulfate 2.5 mg INHALE 11/25/23 23:39 10 mg ONCE ONE Administration Albuterol Sulfate 7.5 mg/ 10 mg 11/26/23 02:04 11/26/23 02:07 Albuterol Sulfate 2.5 mg INHALE 11/26/23 02:05 10 mg ONCE ONE Administration Magnesium Sulfate 2 gm in 50 mls @ 150 mls/hr 11/25/23 23:30 11/26/23 00:10 Magnesium Sulfate/H2o IV 11/25/23 23:49 Infused ONCE ONE Infusion Methylprednisolone Sodium Succinate 125 mg 11/25/23 23:30 11/25/23 23:45 Methylprednisolone Sod Succ 125 Mg/2 Ml Vial IVPUSH 11/25/23 23:31 125 mg ONCE ONE Administration Medical Decision Making Medical Decision Making [facility] Narrative: 28 year old male with pmhx significant for asthma presents to the ED today for evaluation of worsening shortness of breath and wheezing beginning yesterday. On presentation, patient tachycardic and tachypneic. afebrile. nontoxic appearing, in mild respiratory distress. increased effort of breathing. Tachypneic. Able to speak in complete sentences. Diffuse expiratory wheezes. Differential diagnosis includes acute asthma exacerbation, viral syndrome. Unlikely pneumonia, effusion, PE, ARDS. Plan for viral serology, bronch treatment. 230 a.m. Patient feeling better normal feels 90% better patient has been here multiple times for similar reasons saturating 92-94% at room air does have nebulizer inhaler at home will discharge him on same with prednisone Differential Diagnosis Differential Diagnoses: The differential diagnosis associated with the presentation includes As above Admission/Observation Consideration of admission/observation: Escalation of care including admission/observation considered In this patient with acute asthma exacerbation, admission considered. Lab Data [facility] Lab Attestation statement: I reviewed the patient's lab results. As above 11/25/23 23:29 11/25/23 23:29 Labs: Lab Results 11/25/23 Range/Units 23:29 WBC 16.1 H (4.8-10.8) X10*3/uL RBC 5.43 (4.60-5.80) X10*6/uL Hgb 15.2 (14.0-18.0) g/dl Hct 42.7 (42.0-52.0) % MCV 78.6 L (80.0-98.0) fL MCH 28.0 (27.0-33.0) pg MCHC 35.6 (31.0-36.0) g/dl RDW 12.6 (11.0-16.0) % Plt Count 386 D (160-400) X10*3/uL MPV 9.2 L (9.4-12.4) fL Absolute Nucleated RBC 0.000 (0.0-0.012) X10*3/uL Nucleated RBC % (auto) 0.0 (0.0-0.2) /100WBC Sodium 138 (135-145) mmol/L Potassium 3.9 (3.3-5.1) mmol/L Chloride 105 (96-108) mmol/L Carbon Dioxide 22 (22-29) mmol/L Anion Gap 15 (12-20) BUN 9 (9-16) mg/dL Creatinine 0.86 (0.5-1.4) mg/dL Estim Creat Clear Calc 140.9 Estimated GFR > 60 Random Glucose 194 H (60-115) mg/dL Calcium 8.9 (8.4-10.2) mg/dL Total Bilirubin 0.3 (0.0-1.0) mg/dL AST 28 (5-37) U/L ALT 30 (0-40) U/L Alkaline Phosphatase 87 (39-117) U/L Total Protein 7.8 (6.5-8.0) g/dL Albumin 4.1 (3.5-5.0) g/dL Influenza Type A (PCR) NEGATIVE (Negative) Influenza Type B (PCR) NEGATIVE (Negative) RSV RNA Qual (PCR) NEGATIVE (Negative) SARS-CoV-2 RNA (RT-PCR) NEGATIVE (Negative) Independent Interpretation I performed an independent interpretation of an: Plain X-Ray Interpretation: Chest xray without infiltrate or consolidation, agree with radiologist's interpretation. Radiology Impression Discussion of test interpretation with radiology: I have reviewed the radiologist's reading. Radiologist Impression: EXAMINATION: XR CHEST CLINICAL INFORMATION: Wheezing. Dyspnea. COMPARISON: 11/13/2023 TECHNIQUE: Frontal view of the chest was obtained. FINDINGS: No significant abnormality is noted involving the heart, lungs, mediastinum, bony thorax or soft tissues. XR/XR chest 1V IMPRESSION: No active cardiopulmonary disease. No significant change. External Record Review External record reviewed: Inpatient record, Office record, Outpatient record, Prior outpatient labs, Prior outpatient radiology, Primary care record and Outside ED record Prescription Management I considered prescription management with: Other (prednisone) Chronic Conditions Patient?s care impacted by: Other (asthma) Social Determinants Patient?s care significantly limited by Social Determinants of Health including: Other Social Determinant of Health Critical Care Time Critical Care Time Critical Care Time: Yes Total Critical Care Time: 45 Attestation: Critical care time in the amount of 45 minutes has been provided to the patient in terms of direct patient care, frequent reevaluation, review and interpretation of medical data and results, and management of potentially life-threatening conditions. This is all outside of any medical procedures. Discharge Plan Discharge Clinical Impression: Asthma with acute exacerbation Patient Disposition: Home, Self-Care Instructions: Asthma (ED) Additional Instructions: Continue to use your inhaler and nebulizing treatment every 4 hours as needed Prednisone as prescribed Report to ER if worsening of shortness of breath Prescriptions: New albuterol sulfate 2.5 mg /3 mL (0.083 %) solution for nebulization 2.5 mg inhalation Q4-6H PRN (Reason: shortness of breath or wheezing) Qty: 90 0RF prednisone 20 mg tablet 40 mg PO DAILY Qty: 10 0RF albuterol sulfate [ProAir HFA] 90 mcg/actuation HFA aerosol inhaler 2 puff inhalation Q4-6H PRN (Reason: shortness of breath or wheezing) Qty: 8.5 0RF No Action (DME) nebulizer and compressor Device See Rx Instructions .Route Qty: 1 0RF Rx Instructions: As directed (DME) nebulizers [Aeroneb Go Nebulizer] Misc See Rx Instructions .Route Qty: 1 0RF Rx Instructions: As directed albuterol sulfate 2.5 mg /3 mL (0.083 %) solution for nebulization 2.5 mg inhalation Q6H PRN (Reason: wheezing) albuterol sulfate 90 mcg/actuation HFA aerosol inhaler 2 puff inhalation Q4-6H PRN (Reason: wheezing) fluticasone propion-salmeterol [Advair Diskus] 500-50 mcg/dose Blister With Device 1 inh INHALATION BID montelukast 10 mg Tablet 10 mg PO DAILY prednisone 20 mg tablet 20 mg PO DAILY Qty: 5 0RF Rx Instructions: Take one tablet daily for five days. prednisone 20 mg tablet 40 mg PO DAILY 5 Days Qty: 10 0RF Interventions: ED Discharge Assessment Last Done: 11/26/23 02:55 Discharge Date/Time: 11/26/23 02:57 Print Language: Maldivian
[2023-11-25] MEDS: Albuterol Sulfate 7.5 MG, Albuterol Sulfate (0.083%) 2.5 MG 10 MG INHALE (23:45)
[2023-11-25] MEDS: Magnesium Sulfate/H2O 2 GM/50 ML PIGGYBACK IV (23:45)
[2023-11-25] MEDS: methylPREDNISolone Sod Succ 125 MG/2 ML VIAL IVPUSH (23:45)
[2023-11-25 23:46] VITALS: PULSE 111; RESP 18; O2SAT 91
[2023-11-25 23:52] LABS: Alanine Aminotransferase 30 U/L (0-40); Albumin Level 4.1 g/dL (3.5-5.0); Alkaline Phosphatase 87 U/L (39-117); Anion Gap 15 (12-20); Aspartate Amino Transferase 28 U/L (5-37); Bilirubin Total 0.3 mg/dL (0.0-1.0); Blood Urea Nitrogen 9 mg/dL (9-16); Calcium 8.9 mg/dL (8.4-10.2); Carbon Dioxide 22 mmol/L (22-29); Chloride 105 mmol/L (96-108); Creatinine Clr Calc Pharmacy 140.9; Estimated Glomerular Filt Rate > 60; Glucose Random 194 mg/dL (60-115); Potassium 3.9 mmol/L (3.3-5.1); Sodium 138 mmol/L (135-145); Total Protein 7.8 g/dL (6.5-8.0)
[2023-11-26 00:46] LABS: Influenza A PCR NEGATIVE (Negative); Influenza B PCR NEGATIVE (Negative); Resp Syncy Virus RNA Qual PCR NEGATIVE (Negative); SARS COV2 PCR INHOUSE NEGATIVE (Negative)
[2023-11-26 01:12] LABS: Hematocrit 42.7 % (42.0-52.0); Hemoglobin 15.2 g/dl (14.0-18.0); Mean Corpuscular HGB Conc 35.6 g/dl (31.0-36.0); Mean Corpuscular Volume 78.6 fL (80.0-98.0); Mean Platelet Volume 9.2 fL (9.4-12.4); Platelet Count 386 X10*3/uL (160-400); Red Blood Count 5.43 X10*6/uL (4.60-5.80); Red Cell Distribution Width 12.6 % (11.0-16.0); White Blood Count 16.1 X10*3/uL (4.8-10.8)
[2023-11-26] MEDS: Albuterol Sulfate 7.5 MG, Albuterol Sulfate (0.083%) 2.5 MG 10 MG INHALE (02:07)
[2023-11-26 02:09] VITALS: PULSE 107; RESP 18; O2SAT 93
[2023-11-26 02:55] VITALS: BP 143/86; PULSE 101; RESP 20; TEMP 36.7; O2SAT 94
== END 2023-11-26 02:57 | disposition home or self-care (01) ==
PROVIDERS: Emergency Provider Emergency Medicine
DX: J45.901 Unspecified asthma with (acute) exacerbation (principal); R06.02 Shortness of breath; Z11.52 Encounter for screening for COVID-19; Z20.822 Contact with and (suspected) exposure to COVID-19; Z79.899 Other long term (current) drug therapy
CPT/HCPCS: 0241U; 36415; 71045; 80053; 85027; 94640; 96365; 96375; 99284; J2919; J2930; J3475

== ENCOUNTER 2023-12-07 08:18 | Emergency (ER) | payer MEDICAID, SELFPAY ==
--- NOTE | ~2023-12-07 | XR_ITS ---
EXAMINATION: XR CHEST CLINICAL INFORMATION: Shortness of breath COMPARISON: 11/25/2023 TECHNIQUE: Frontal view of the chest was obtained. FINDINGS: Lungs clear. Heart and pulmonary vessels normal. XR/XR chest 1V IMPRESSION: No active disease.
[2023-12-07 08:19] VITALS: BP 121/85; PULSE 102; RESP 20; TEMP 36.8; O2SAT 92; BMI 43.0
--- NOTE | 2023-12-07 08:26 | ED_ITS ---
HPI - Asthma General Chief Complaint: Asthma Stated Complaint: SOB - asthma Time Seen by Provider: 12/07/23 08:26 Source: patient Mode of arrival: ambulatory Limitations: no limitations History of Present Illness HPI Narrative: 28-year-old male history of asthma presenting to the emergency department complaints of shortness of breath since yesterday, shortness of breath started suddenly, he reports he started having wheezing associated with shortness of breath, worsening ever since. Patient has taken multiple puffos of his albuterol inhalers with little to no relief he was not home so he did not have his nebulizer. He is reporting some shortness of breath worse with exertion. This feels like his typical asthma exacerbation. No chest pain, fevers, chills, nausea, vomiting, abdominal pain, headache, vision changes, dizziness and weakness. Related Data Home Medications ?Medication ?Instructions ?Recorded ?Confirmed albuterol sulfate 2.5 mg/3 mL 2.5 mg inhalation Q6H PRN wheezing 10/08/23 10/08/23 (0.083 %) solution for nebulization albuterol sulfate 90 mcg/actuation 2 puff inhalation Q4-6H PRN 10/08/23 10/08/23 aerosol inhaler wheezing fluticasone 500 mcg-salmeterol 50 1 inh inhalation BID 10/08/23 10/08/23 mcg/dose blistr powdr for inhalation (Advair Diskus) montelukast 10 mg tablet 10 mg PO DAILY 10/08/23 10/08/23 Previous Rx's ?Medication ?Instructions ?Recorded nebulizer and compressor #1 ea 09/15/21 nebulizers (Aeroneb Go Nebulizer) #1 ea 04/18/22 prednisone 20 mg tablet 20 mg PO DAILY #5 tabs 10/08/23 prednisone 20 mg tablet 40 mg (2 x 20 mg) PO DAILY 5 days 11/13/23 #10 tabs albuterol sulfate 2.5 mg/3 mL 2.5 mg (3 mL) inhalation Q4-6H PRN 11/26/23 (0.083 %) solution for nebulization shortness of breath or wheezing #90 mL albuterol sulfate 90 mcg/actuation 2 puff inhalation Q4-6H PRN 11/26/23 aerosol inhaler (ProAir HFA) shortness of breath or wheezing #8.5 grams prednisone 20 mg tablet 40 mg (2 x 20 mg) PO DAILY #10 tabs 11/26/23 albuterol sulfate 2.5 mg/3 mL 2.5 mg (3 mL) inhalation Q6H #75 mL 12/07/23 (0.083 %) solution for nebulization albuterol sulfate 90 mcg/actuation 2 inh inhalation Q4-6H PRN 12/07/23 breath activated powder inhaler shortness of breath or wheezing #1 ea prednisone 50 mg tablet 50 mg PO DAILY 5 days #5 tabs 12/07/23 Allergies Allergy/AdvReac Type Severity Reaction Status Date / Time shellfish derived Allergy Severe SHORTNESS Verified 12/07/23 08:25 OF BREATH, SWELLING shrimp Allergy Severe ANAPHYLAXIS Verified 12/07/23 08:25 Review of Systems Review of Systems: Constitutional : No Weight loss, No Fever, No Chills, No Fatigue, No Malaise ENT/Mouth : No sore throat, No Rhinorrhea Eyes: No Eye Pain, No Swelling, No Redness Cardiovascular : No Chest Pain, + SOB, No Dyspnea on Exertion, No Orthopnea, No Edema, No Palpitations Respiratory : No Cough, No Sputum, + Wheezing Gastrointestinal : No Nausea, No Vomiting, No Diarrhea, No Constipation, No abdominal Pain, No Hematochezia, No Melena Genitourinary : No Dysuria, No Urinary Frequency, No Hematuria, Musculoskeletal : No joint pain, No Myalgias, No Joint Swelling Skin : No Skin Lesions, No rash Neuro : No Weakness, No Numbness, No Dizziness, No Headache Psych : No Anxiety/Panic, No Depression All other systems reviewed and are negative Yes all other systems are reviewed and are negative [facility] Past Medical History Attestation statement: The following information was validated with the patient. Source: old records reviewed and nursing notes reviewed Medical History Asthma Pneumonia due to 2019 novel coronavirus Asthma Family History Family History Mother Asthma Social History Social History Household Members: None Housing: House Do you presently have visiting nurse or other home services: No Alcohol intake: never Patient Tobacco Use Status: Never used Tobacco Advance Directives: No Do you have a plan to hurt others: No Plan service: No Current occupational status: unemployed Physical Exam Vital Signs: Vital Signs: Last Vital Signs Temp 98.2 F 12/07/23 08:19 Pulse 112 H 12/07/23 08:57 Resp 20 12/07/23 08:57 BP 121/85 12/07/23 08:19 Pulse Ox 92 12/07/23 08:19 O2 Del Method Room Air 12/07/23 08:19 BMI result Body Mass Index 43.0 92 % on RA Appearance: Alert.? Oriented X3.? No acute distress.? Speaking in full sentences controlling secretions well. No use of accessory muscles Head: Normocephalic, atraumatic, no step-offs or deformities Eyes: Pupils equal, round and reactive to light.? ENT: Pharynx normal.? Neck: Normal inspection.? Neck supple.? CVS: Normal heart rate and rhythm.? Pulses normal.? Respiratory: No respiratory distress.? Breath sounds expiratory wheezing bilaterally..? Abdomen: Soft and nontender.? Skin: Skin warm and dry.? Normal skin color.? Normal skin turgor.? Extremities: No lower extremity edema.? No calf ttp. 5/5 strength to bilateral upper and lower extremities Neuro: Oriented X 3.? No motor deficit.? No sensory deficit. CN 2-12 intact Course Reevaluation(s) Reevaluation #1: Chest x-ray no active disease. Patient received magnesium, Solu-Medrol, breathing treatment now 90-93%. Patient signed out against medical advice states he has to go get his kids. Regardless him bread his own to the pharmacy. Patient has inhalers at home. Will send nebulizing treatments for him. Educated patient on diagnosis and treatment plan, answered all question, patient verbalizes understanding. At this time patient will be discharged home, advised to return with new or worsening symptoms. Educated on worrisome signs and symptoms and when to return. Time: 09:16 Medications Administered Generic Name Dose Route Start Last Admin Trade Name Freq PRN Reason Stop Dose Admin Magnesium Sulfate 2 gm in 50 mls @ 25 mls/hr 12/07/23 08:28 12/07/23 08:41 Magnesium Sulfate/H2o IV 12/07/23 10:27 25 mls/hr ONCE ONE Administration Discontinued Medications Generic Name Dose Route Start Last Admin Trade Name Jrq PRN Reason Stop Dose Admin Methylprednisolone Sodium Succinate 125 mg 12/07/23 08:28 12/07/23 08:41 Methylprednisolone Sod Succ 125 Mg/2 Ml Vial IVPUSH 12/07/23 08:29 125 mg ONCE ONE Administration Medical Decision Making Medical Decision Making [facility] Narrative: 28-year-old male presents with shortness of breath and wheezing since yesterday tried albuterol without relief has also been using his rescue inhaler Physical exam with expiratory wheezing bilaterally. Speaking full sentences controlling secretions well no intracostal muscles use for breathing. 92% on room air when he got here History and physical exam concerning for viral illness versus acute asthma exacerbation. Low suspicion for pulmonary embolism, pneumonia, ACS, acute respiratory distress Plan at this time labs, x-ray, viral test. Differential Diagnosis Differential Diagnoses: The differential diagnosis associated with the pre sentation includes History and physical exam concerning for viral illness versus acute asthma exacerbation. Low suspicion for pulmonary embolism, pneumonia, ACS, acute respiratory distress Admission/Observation Consideration of admission/observation: Escalation of care including admission/observation considered Lab Data [facility] Lab Attestation statement: I reviewed the patient's lab results. Independent Interpretation I performed an independent interpretation of an: Plain X-Ray Radiology Impression Discussion of test interpretation with radiology: I have reviewed the radiolog ist's reading. External Record Review External record reviewed: Inpatient record, Office record, Outpatient record, Prior outpatient labs, Prior outpatient radiology, Primary care record and Outside ED record Chronic Conditions Patient?s care impacted by: Other (asthma ) Critical Care Time Critical Care Time Critical Care Time: Yes Total Critical Care Time: 35 Attestation: I attest to this time spent taking care of the patient, obtaining history, physical, reviewing labs, imaging, speaking to my attending, specialist or hospitalist. Discharge Plan Discharge Clinical Impression: Asthma, Left against medical advice Patient Disposition: Home, Self-Care Instructions: Asthma (ED), Against Medical Advice (ED) Additional Instructions: Take your medications as prescribed. If you were prescribed antibiotics today, it is important that you take your medication to their entirety, do not skip any doses, do not finish them early. Follow-up with your primary care provider this week. Return to the emergency department with new or worsening symptoms. Such as fevers, chills, chest pain, shortness of breath, nausea, vomiting, dizziness, headache, vision changes, lethargy In case of emergency call 911 Patient decided to leave against medical advice. I took the time to go over risks of leaving against medical advice including . Patient verbalizes understanding of this. Advised them to come back if they change their mind. Prescriptions: New prednisone 50 mg tablet 50 mg PO DAILY 5 Days Qty: 5 0RF albuterol sulfate 2.5 mg /3 mL (0.083 %) solution for nebulization 2.5 mg inhalation Q6H Qty: 75 0RF albuterol sulfate 90 mcg/actuation aerosol powdr breath activated 2 inh inhalation Q4-6H PRN (Reason: shortness of breath or wheezing) Qty: 1 0RF No Action (DME) nebulizer and compressor Device See Rx Instructions .Route Qty: 1 0RF Rx Instructions: As directed (DME) nebulizers [Aeroneb Go Nebulizer] Misc See Rx Instructions .Route Qty: 1 0RF Rx Instructions: As directed albuterol sulfate 2.5 mg /3 mL (0.083 %) solution for nebulization 2.5 mg inhalation Q6H PRN (Reason: wheezing) albuterol sulfate 90 mcg/actuation HFA aerosol inhaler 2 puff inhalation Q4-6H PRN (Reason: wheezing) fluticasone propion-salmeterol [Advair Diskus] 500-50 mcg/dose Blister With Device 1 inh INHALATION BID montelukast 10 mg Tablet 10 mg PO DAILY prednisone 20 mg tablet 20 mg PO DAILY Qty: 5 0RF Rx Instructions: Take one tablet daily for five days. prednisone 20 mg tablet 40 mg PO DAILY 5 Days Qty: 10 0RF albuterol sulfate 2.5 mg /3 mL (0.083 %) solution for nebulization 2.5 mg inhalation Q4-6H PRN (Reason: shortness of breath or wheezing) Qty: 90 0RF prednisone 20 mg tablet 40 mg PO DAILY Qty: 10 0RF albuterol sulfate [ProAir HFA] 90 mcg/actuation HFA aerosol inhaler 2 puff inhalation Q4-6H PRN (Reason: shortness of breath or wheezing) Qty: 8.5 0RF Referrals: Physician,None [Primary Care Provider] - 2 days Stand Alone Forms: Against Medical Advice, Work/School Release Print Language: Thai
[2023-12-07] MEDS: Magnesium Sulfate/H2O 2 GM/50 ML PIGGYBACK IV (08:41)
[2023-12-07] MEDS: methylPREDNISolone Sod Succ 125 MG/2 ML VIAL IVPUSH (08:41)
[2023-12-07 08:57] VITALS: PULSE 112; RESP 20; O2SAT 94
[2023-12-07 09:17] VITALS: BP 166/113; PULSE 100; RESP 22; TEMP 37.2; O2SAT 94
[2023-12-07 09:21] LABS: Influenza A PCR NEGATIVE (Negative); Influenza B PCR NEGATIVE (Negative); Resp Syncy Virus RNA Qual PCR NEGATIVE (Negative); SARS COV2 PCR INHOUSE NEGATIVE (Negative)
== END 2023-12-07 09:18 | disposition home or self-care (01) ==
PROVIDERS: Physician Assistant; Emergency Provider Emergency Medicine
DX: J45.909 Unspecified asthma, uncomplicated (principal); R06.02 Shortness of breath; Z79.899 Other long term (current) drug therapy; Z11.52 Encounter for screening for COVID-19
CPT/HCPCS: 0241U; 71045; 94640; 96374; 96375; 99284; 99285; J2919; J3475

== ENCOUNTER 2023-12-12 23:29 | Emergency (ER) | payer MEDICAID, SELFPAY ==
--- NOTE | 2023-12-12 | ECG_ITS ---
Test Reason : SOB Blood Pressure : / mmHG Vent. Rate : 113 BPM Atrial Rate : 113 BPM P-R Int : 128 ms QRS Dur : 080 ms QT Int : 312 ms P-R-T Axes : 069 077 055 degrees QTc Int : 427 ms Sinus tachycardia Otherwise normal ECG When compared with ECG of 08-OCT-2023 13:30, No significant change was found Referred By: Generic ED Physician Electronically Signed By:ERIKA VILLARREAL
--- NOTE | ~2023-12-12 | XR_ITS ---
EXAMINATION: XR CHEST CLINICAL INFORMATION: Pain, question pneumonia COMPARISON: 12/07/2023 TECHNIQUE: Frontal view of the chest was obtained. FINDINGS: Lung volumes are symmetric. No focal consolidation is seen. Mildly coarsened appearance of the perihilar interstitium. No evidence of pneumothorax or significant pleural effusion. The cardiomediastinal contour is unremarkable. No acute osseous findings are seen. XR/XR chest 1V IMPRESSION: No focal consolidation. Mildly coarsened appearance of the perihilar interstitium may reflect airways disease.
[2023-12-12 23:38] VITALS: BP 132/86; PULSE 117; RESP 24; TEMP 36.8; O2SAT 92; BMI 43.3
[2023-12-12] MEDS: Magnesium Sulfate/H2O 2 GM/50 ML PIGGYBACK IV (23:42)
[2023-12-12] MEDS: methylPREDNISolone Sod Succ 125 MG/2 ML VIAL IVPUSH (23:42)
[2023-12-12] MEDS: Albuterol Sulfate 7.5 MG, Albuterol/Iprat 2.5/0.5MG 3 ML 3 ML INHALE (23:45)
--- NOTE | 2023-12-12 23:45 | ED.ASTHMA ---
HPI - Asthma General Chief Complaint: Asthma Stated Complaint: trouble breathing/asthmatic Time Seen by Provider: 12/12/23 23:33 Source: patient Mode of arrival: ambulatory Limitations: no limitations History of Present Illness HPI Narrative: 28 yold male with pmh of asthma presents to the ED for asthma exacerbation. patient states coughing, wheezing, and SOB. Patient denies leg swelling pitting edema, calf tenerness, recent long travel, or recent surgery. Patient states no history of blood clots Related Data Home Medications ?Medication ?Instructions ?Recorded ?Confirmed albuterol sulfate 2.5 mg/3 mL 2.5 mg inhalation Q6H PRN wheezing 10/08/23 10/08/23 (0.083 %) solution for nebulization albuterol sulfate 90 mcg/actuation 2 puff inhalation Q4-6H PRN 10/08/23 10/08/23 aerosol inhaler wheezing fluticasone 500 mcg-salmeterol 50 1 inh inhalation BID 10/08/23 10/08/23 mcg/dose blistr powdr for inhalation (Advair Diskus) montelukast 10 mg tablet 10 mg PO DAILY 10/08/23 10/08/23 Previous Rx's ?Medication ?Instructions ?Recorded nebulizer and compressor #1 ea 09/15/21 nebulizers (Aeroneb Go Nebulizer) #1 ea 04/18/22 prednisone 20 mg tablet 20 mg PO DAILY #5 tabs 10/08/23 prednisone 20 mg tablet 40 mg (2 x 20 mg) PO DAILY 5 days 11/13/23 #10 tabs albuterol sulfate 2.5 mg/3 mL 2.5 mg (3 mL) inhalation Q4-6H PRN 11/26/23 (0.083 %) solution for nebulization shortness of breath or wheezing #90 mL albuterol sulfate 90 mcg/actuation 2 puff inhalation Q4-6H PRN 11/26/23 aerosol inhaler (ProAir HFA) shortness of breath or wheezing #8.5 grams prednisone 20 mg tablet 40 mg (2 x 20 mg) PO DAILY #10 tabs 11/26/23 albuterol sulfate 2.5 mg/3 mL 2.5 mg (3 mL) inhalation Q6H #75 mL 12/07/23 (0.083 %) solution for nebulization albuterol sulfate 90 mcg/actuation 2 inh inhalation Q4-6H PRN 12/07/23 breath activated powder inhaler shortness of breath or wheezing #1 ea prednisone 50 mg tablet 50 mg PO DAILY 5 days #5 tabs 12/07/23 azithromycin 250 mg tablet See Rx Instructions PO .COMPLEX #6 12/13/23 tabs benzonatate 200 mg capsule 200 mg PO TID PRN cough 5 days #15 12/13/23 caps prednisone 20 mg tablet 40 mg (2 x 20 mg) PO DAILY 5 days 12/13/23 #10 tabs Allergies Allergy/AdvReac Type Severity Reaction Status Date / Time shellfish derived Allergy Severe SHORTNESS Verified 12/12/23 23:39 OF BREATH, SWELLING shrimp Allergy Severe ANAPHYLAXIS Verified 12/12/23 23:39 Review of Systems Review of Systems: Shortness of breath, coughing, wheezing, chest tightness Yes all other systems are reviewed and are negative [facility] Past Medical History Medical History Asthma Pneumonia due to 2019 novel coronavirus Asthma Family History Family History Mother Asthma Social History Social History Household Members: None Housing: House Do you presently have visiting nurse or other home services: No Alcohol intake: never Patient Tobacco Use Status: Never used Tobacco Smoked in Last 30 Days: No Advance Directives: No Advance Directives Information Provided: No Do you have a plan to hurt others: No Plan service: No Current occupational status: unemployed Physical Exam Vital Signs: Vital Signs: Last Vital Signs Temp 98.1 F 12/13/23 02:45 Pulse 110 H 12/13/23 02:45 Resp 20 12/13/23 02:45 BP 144/74 H 12/13/23 02:45 Pulse Ox 94 12/13/23 02:45 O2 Del Method Room Air 12/13/23 02:45 BMI result Body Mass Index 43.3 Const: General: cooperative, healthy appearing, comfortable, no acute distress, well developed, alert, awake and Physically active Orientation/consciousness: oriented to person, oriented to place, oriented to time and patient oriented x3 HEENT: Head: Yes normal to inspection, Yes No palpable skull fracture present, Yes normocephalic, Yes atraumatic and No abrasion Eyes: General: appearance normal, both eyes and all related structures Neck: Neck: Yes normal visual inspection, Yes full ROM, Yes no lymphadenopathy, Yes no meningeal signs, Yes trachea midline, Yes supple, No anterior neck swelling and No tender Chest: Chest palpation & inspection: normal inspection of the chest and normal palpation of entire chest wall Resp: Effort & Inspection: normal respiratory effort and able to speak in complete sentences Auscultation: wheezes expiratory wheezes (Diffuse) Cardio: Jugular venous distension: no JVD Heart sounds: S1 normal heart sound present and S2 normal heart sound present GI: Inspection: Yes normal to inspection Palpation (GI): Soft to palpation, not firm, nontender, no guarding and not rigid : General: No CVA tenderness and Yes no CVA tenderness Back/Spine/Pelvis: Back: no CVA tenderness, No CVA tenderness and No back tenderness Skin: General skin exam: no rashes or lesions noted, elasticity normal and turgor normal Neuro: General: oriented to person, oriented to place, oriented to time, patient oriented x3, gait normal, tone normal, moves all extremities, Normal light touch and pain sensation, no meningeal signs, no focal motor deficits, CN's II-XI intact bilaterally and normal sensation to monofilament Extrem: Other: Bilateral lower extremity negative for swelling, pitting edema, or calf tenderness General: Yes normal to inspection, Yes full ROM and Yes capillary refill normal Psych: Appearance: grossly normal, well kempt and not disheveled Medications Administered Discontinued Medications Generic Name Dose Route Start Last Admin Trade Name Darius PRN Reason Stop Dose Admin Albuterol Sulfate 7.5 mg/ 10 mg 12/13/23 01:32 12/13/23 01:41 Albuterol Sulfate 2.5 mg INHALE 12/13/23 01:33 10 mg ONCE ONE Administration Albuterol Sulfate 7.5 mg/ 0 mg 12/12/23 23:37 12/12/23 23:45 Albuterol/Ipratropium 3 ml INHALE 12/12/23 23:38 3 each ONCE ONE Administration Magnesium Sulfate 2 gm in 50 mls @ 25 mls/hr 12/12/23 23:33 12/12/23 23:42 Magnesium Sulfate/H2o IV 12/13/23 01:32 25 mls/hr ONCE ONE Administration Methylprednisolone Sodium Succinate 125 mg 12/12/23 23:33 12/12/23 23:42 Methylprednisolone Sod Succ 125 Mg/2 Ml Vial IVPUSH 12/12/23 23:34 125 mg ONCE ONE Administration Medical Decision Making Medical Decision Making [facility] Narrative: 28-year-old male presents to ED for asthma exacerbation, EKG and labs ordered. Chest x-ray ordered. SARS ordered. Albuterol magnesium Solu-Medrol ordered. 1:56pm: Case was discussed with hospitalist Dr. Posada for admission. He agreed for admission for patient. Admission was discussed with patient and he refused admission. Patient states he feels better. Oxygen on ambulation 95% without any shortness of breath. Wheezing significantly decreased and lungs sounds improved. Patient just wants 1 more treatment and will be discharged. Patient will return for any worrisome symptoms. Differential Diagnosis Differential Diagnoses: The differential diagnosis associated with the presentation includes (Asthma, CHF, myocardial infarction, pneumonia, SARS, influenza) Admission/Observation Consideration of admission/observation: Escalation of care including admission/observation considered Consult Healthcare Provider Management of the patient was discussed with: Hospitalist (Dr. Posada) Lab Data [facility] Lab Attestation statement: I reviewed the patient's lab results. 12/12/23 23:44 12/12/23 23:43 Labs: Lab Results 12/12/23 12/12/23 12/13/23 Range/Units 23:43 23:44 00:13 WBC 14.5 H (4.8-10.8) X10*3/uL RBC 5.10 (4.60-5.80) X10*6/uL Hgb 14.5 (14.0-18.0) g/dl Hct 40.9 L (42.0-52.0) % MCV 80.2 (80.0-98.0) fL MCH 28.4 (27.0-33.0) pg MCHC 35.5 (31.0-36.0) g/dl RDW 12.3 (11.0-16.0) % Plt Count 313 (160-400) X10*3/uL MPV 9.4 (9.4-12.4) fL Immature Gran % (Auto) 0.4 (0.0-0.4) % Neut % (Auto) 52.8 (45-73) % Lymph % (Auto) 24.7 (20-40) % [place] % (Auto) 7.7 (2-11) % Eos % (Auto) 12.9 H (0-4) % Baso % (Auto) 1.5 (0-2) % Lymph # (Auto) 3.6 (1.2-4.9) X10*3/uL [place] # (Auto) 1.1 (0.1-1.2) X10*3/uL Eos # (Auto) 1.9 H (0.0-0.4) X10*3/uL Baso # (Auto) 0.2 (0.0-0.2) X10*3/uL Abs Immat Gran (auto) 0.06 H (0.00-0.03) X10*3/uL Absolute Neuts (auto) 7.7 (2.0-8.3) x10*3/uL Absolute Nucleated RBC 0.000 (0.0-0.012) X10*3/uL Nucleated RBC % (auto) 0.0 (0.0-0.2) /100WBC PT 11.2 (11.1-13.3) SEC INR 0.9 (0.9-1.1) APTT 31.3 (26.0-36.8) SEC VBG pH (7.32-7.43) VBG pCO2 mmHg VBG pO2 mmHg VBG HCO3 (22-26) mmol/L VBG O2 Saturation % VBG Base Excess mmol/L Sodium 138 (135-145) mmol/L Potassium 3.7 (3.3-5.1) mmol/L Chloride 104 (96-108) mmol/L Carbon Dioxide 21 L (22-29) mmol/L Anion Gap 17 (12-20) BUN 9 (9-16) mg/dL Creatinine 0.90 (0.5-1.4) mg/dL Estim Creat Clear Calc 144.0 Estimated GFR > 60 Random Glucose 177 H (60-115) mg/dL Calcium 8.8 (8.4-10.2) mg/dL Total Bilirubin 0.3 (0.0-1.0) mg/dL AST 25 (5-37) U/L ALT 34 (0-40) U/L Alkaline Phosphatase 82 (39-117) U/L Troponin I High Sens < 2.7 (<3.5-35.0) ng/L B-Natriuretic Peptide < 10 (<100) pg/mL Total Protein 7.6 (6.5-8.0) g/dL Albumin 4.1 (3.5-5.0) g/dL Influenza Type A (PCR) NEGATIVE (Negative) Influenza Type B (PCR) NEGATIVE (Negative) RSV RNA Qual (PCR) NEGATIVE (Negative) SARS-CoV-2 RNA (RT-PCR) NEGATIVE (Negative) 12/13/23 Range/Units 02:00 WBC (4.8-10.8) X10*3/uL RBC (4.60-5.80) X10*6/uL Hgb (14.0-18.0) g/dl Hct (42.0-52.0) % MCV (80.0-98.0) fL MCH (27.0-33.0) pg MCHC (31.0-36.0) g/dl RDW (11.0-16.0) % Plt Count (160-400) X10*3/uL MPV (9.4-12.4) fL Immature Gran % (Auto) (0.0-0.4) % Neut % (Auto) (45-73) % Lymph % (Auto) (20-40) % [place] % (Auto) (2-11) % Eos % (Auto) (0-4) % Baso % (Auto) (0-2) % Lymph # (Auto) (1.2-4.9) X10*3/uL [place] # (Auto) (0.1-1.2) X10*3/uL Eos # (Auto) (0.0-0.4) X10*3/uL Baso # (Auto) (0.0-0.2) X10*3/uL Abs Immat Gran (auto) (0.00-0.03) X10*3/uL Absolute Neuts (auto) (2.0-8.3) x10*3/uL Absolute Nucleated RBC (0.0-0.012) X10*3/uL Nucleated RBC % (auto) (0.0-0.2) /100WBC PT (11.1-13.3) SEC INR (0.9-1.1) APTT (26.0-36.8) SEC VBG pH 7.42 (7.32-7.43) VBG pCO2 33 mmHg VBG pO2 67 mmHg VBG HCO3 21 L (22-26) mmol/L VBG O2 Saturation 93.0 % VBG Base Excess -1.8 mmol/L Sodium (135-145) mmol/L Potassium (3.3-5.1) mmol/L Chloride (96-108) mmol/L Carbon Dioxide (22-29) mmol/L Anion Gap (12-20) BUN (9-16) mg/dL Creatinine (0.5-1.4) mg/dL Estim Creat Clear Calc Estimated GFR Random Glucose (60-115) mg/dL Calcium (8.4-10.2) mg/dL Total Bilirubin (0.0-1.0) mg/dL AST (5-37) U/L ALT (0-40) U/L Alkaline Phosphatase (39-117) U/L Troponin I High Sens (<3.5-35.0) ng/L B-Natriuretic Peptide (<100) pg/mL Total Protein (6.5-8.0) g/dL Albumin (3.5-5.0) g/dL Influenza Type A (PCR) (Negative) Influenza Type B (PCR) (Negative) RSV RNA Qual (PCR) (Negative) SARS-CoV-2 RNA (RT-PCR) (Negative) Independent Interpretation I performed an independent interpretation of an: Plain X-Ray Radiology Impression Discussion of test interpretation with radiology: I have reviewed the radiologist's reading. Independent Historian Clinical information obtained from an independent historian. History obtained from or confirmed by: Other (patient) External Record Review External record reviewed: Other (Prior viists) Prescription Management I considered prescription management with: Other (Prednisone, coughing medication,) Chronic Conditions Patient?s care impacted by: Other (Asthma) Critical Care Time Critical Care Time Critical Care Time: Yes Total Critical Care Time: 60 Attestation: Hypoxic, diffuse wheezing, magnesium, albuterol, labs, chest x-ray, EKG, Solu-Medrol ordered. Discharge Plan Discharge Clinical Impression: Asthma Patient Disposition: Home, Self-Care Instructions: Asthma (ED) Additional Instructions: Return to the ED immediately for any chest pain, shortness of breath, weakness, dizziness, coughing blood, leg swelling, calf pain, chest pain/shortness of breath on exertion or on inspiration, or any other concerning symptoms. Recommend follow-up with primary care provider. Continue taking albuterol inhaler at home as needed. Prescriptions: New prednisone 20 mg tablet 40 mg PO DAILY 5 Days Qty: 10 0RF benzonatate 200 mg capsule 200 mg PO TID PRN (Reason: cough) 5 Days Qty: 15 0RF azithromycin 250 mg tablet See Rx Instructions .ROUTE .COMPLEX Qty: 6 0RF Rx Instructions: For 250 mg dose pack: take 500 mg today (day 1), then 250 mg for 4 days (days 2-5) No Action (DME) nebulizer and compressor Device See Rx Instructions .Route Qty: 1 0RF Rx Instructions: As directed (DME) nebulizers [Aeroneb Go Nebulizer] Misc See Rx Instructions .Route Qty: 1 0RF Rx Instructions: As directed albuterol sulfate 2.5 mg /3 mL (0.083 %) solution for nebulization 2.5 mg inhalation Q6H PRN (Reason: wheezing) albuterol sulfate 90 mcg/actuation HFA aerosol inhaler 2 puff inhalation Q4-6H PRN (Reason: wheezing) fluticasone propion-salmeterol [Advair Diskus] 500-50 mcg/dose Blister With Device 1 inh INHALATION BID montelukast 10 mg Tablet 10 mg PO DAILY prednisone 20 mg tablet 20 mg PO DAILY Qty: 5 0RF Rx Instructions: Take one tablet daily for five days. prednisone 20 mg tablet 40 mg PO DAILY 5 Days Qty: 10 0RF albuterol sulfate 2.5 mg /3 mL (0.083 %) solution for nebulization 2.5 mg inhalation Q4-6H PRN (Reason: shortness of breath or wheezing) Qty: 90 0RF prednisone 20 mg tablet 40 mg PO DAILY Qty: 10 0RF albuterol sulfate [ProAir HFA] 90 mcg/actuation HFA aerosol inhaler 2 puff inhalation Q4-6H PRN (Reason: shortness of breath or wheezing) Qty: 8.5 0RF prednisone 50 mg tablet 50 mg PO DAILY 5 Days Qty: 5 0RF albuterol sulfate 2.5 mg /3 mL (0.083 %) solution for nebulization 2.5 mg inhalation Q6H Qty: 75 0RF albuterol sulfate 90 mcg/actuation aerosol powdr breath activated 2 inh inhalation Q4-6H PRN (Reason: shortness of breath or wheezing) Qty: 1 0RF Stand Alone Forms: Work/School Release Interventions: ED Discharge Assessment Last Done: 12/13/23 02:45 Discharge Date/Time: 12/13/23 02:47 Print Language: Bulgarian
[2023-12-12 23:47] VITALS: PULSE 114; RESP 26; O2SAT 97
[2023-12-12 23:47] LABS: MANUAL DIFF FLAG NO
--- NOTE | 2023-12-12 23:48 | PC.NURSE ---
Pt ca&ox4, denies pain. IV access obtain. Labs drawn and sent. Pt medicated per oct. RT with pt. PT placed on bedside monitor. Plan of care ongoing.
[2023-12-12 23:49] LABS: Basophils Absolute Auto 0.2 X10*3/uL (0.0-0.2); Basophils Percent Auto 1.5 % (0-2); Eosinophils Absolute Auto 1.9 X10*3/uL (0.0-0.4); Eosinophils Percent Auto 12.9 % (0-4); Hematocrit 40.9 % (42.0-52.0); Hemoglobin 14.5 g/dl (14.0-18.0); Imm Gran Abs Auto 0.06 X10*3/uL (0.00-0.03); Imm Gran Pct Auto 0.4 % (0.0-0.4); Lymphocytes Absolute Auto 3.6 X10*3/uL (1.2-4.9); Lymphocytes Percent Auto 24.7 % (20-40); Mean Corpuscular HGB Conc 35.5 g/dl (31.0-36.0); Mean Corpuscular Hemoglobin 28.4 pg (27.0-33.0); Mean Corpuscular Volume 80.2 fL (80.0-98.0); Mean Platelet Volume 9.4 fL (9.4-12.4); Monocytes Absolute Auto 1.1 X10*3/uL (0.1-1.2); Monocytes Percent Auto 7.7 % (2-11); Neutrophils Absolute Auto 7.7 x10*3/uL (2.0-8.3); Neutrophils Percent Auto 52.8 % (45-73); Platelet Count 313 X10*3/uL (160-400); Red Cell Distribution Width 12.3 % (11.0-16.0); White Blood Count 14.5 X10*3/uL (4.8-10.8)
[2023-12-13 00:07] LABS: Alanine Aminotransferase 34 U/L (0-40); Albumin Level 4.1 g/dL (3.5-5.0); Alkaline Phosphatase 82 U/L (39-117); Anion Gap 17 (12-20); Aspartate Amino Transferase 25 U/L (5-37); Bilirubin Total 0.3 mg/dL (0.0-1.0); Blood Urea Nitrogen 9 mg/dL (9-16); Calcium 8.8 mg/dL (8.4-10.2); Carbon Dioxide 21 mmol/L (22-29); Chloride 104 mmol/L (96-108); Estimated Glomerular Filt Rate > 60; Glucose Random 177 mg/dL (60-115); Potassium 3.7 mmol/L (3.3-5.1); Sodium 138 mmol/L (135-145); Total Protein 7.6 g/dL (6.5-8.0)
[2023-12-13 00:25] LABS: INTERNATIONAL NORM RATIO 0.9 (0.9-1.1); Prothrombin Time 11.2 SEC (11.1-13.3)
[2023-12-13 00:25] LABS: Influenza A PCR NEGATIVE (Negative); Influenza B PCR NEGATIVE (Negative); Resp Syncy Virus RNA Qual PCR NEGATIVE (Negative); SARS COV2 PCR INHOUSE NEGATIVE (Negative)
[2023-12-13 00:27] LABS: Partial Thromboplastin Time 31.3 SEC (26.0-36.8)
[2023-12-13 00:40] LABS: B Type Natriuretic Peptide < 10 pg/mL (<100)
[2023-12-13 00:41] LABS: Troponin-I High Sensitivity < 2.7 ng/L (<3.5-35.0)
[2023-12-13 01:12] VITALS: BP 140/87; PULSE 105; RESP 22; TEMP 36.7; O2SAT 91
[2023-12-13 01:26] VITALS: O2SAT 95
[2023-12-13] MEDS: Albuterol Sulfate 7.5 MG, Albuterol Sulfate (0.083%) 2.5 MG 10 MG INHALE (01:41)
[2023-12-13 01:43] VITALS: PULSE 105; RESP 22; O2SAT 96
[2023-12-13 02:35] LABS: VBG Base Excess -1.8 mmol/L; VBG HCO3 21 mmol/L (22-26); VBG pCO2 33 mmHg; VBG pH 7.42 (7.32-7.43); VBG pO2 67 mmHg
[2023-12-13 02:37] LABS: Venous Blood Gas Refer to POC result
[2023-12-13 02:38] VITALS: BP 144/71; PULSE 110; RESP 20; TEMP 36.7; O2SAT 94
--- NOTE | 2023-12-13 02:42 | PC.NURSE ---
This nurse reviewed discharge instructions with pt. pt verbalized, no sign of respiratory distress at this time, pt able to speak in full sentences
[2023-12-13 02:45] VITALS: BP 144/74; PULSE 110; RESP 20; TEMP 36.7; O2SAT 94
== END 2023-12-13 02:47 | disposition home or self-care (01) ==
PROVIDERS: Physician Assistant; Student in an Organized Health Care Education/Training Program; Emergency Provider Emergency Medicine Emergency Medical Services
DX: J45.909 Unspecified asthma, uncomplicated (principal)
CPT/HCPCS: 0241U; 36415; 71045; 80053; 82803; 83880; 84484; 85025; 85610; 85730; 93005; 94640; 96374; 99284; 99285; J2919; J3475

== ENCOUNTER → 2023-12-12 23:56 | Outpatient (BNV) | payer MEDICAID, SELFPAY | PROVIDERS: Emergency Provider Emergency Medicine Emergency Medical Services; Visit Provider Internal Medicine | DX: R00.0 Tachycardia, unspecified (principal) | CPT/HCPCS: 93010 ==

== ENCOUNTER 2023-12-23 19:28 | Emergency (ER) | payer MEDICAID, SELFPAY ==
--- NOTE | ~2023-12-23 | XR_ITS ---
EXAMINATION: XR CHEST CLINICAL INFORMATION: Shortness of breath COMPARISON: Chest radiograph 12/13/2023. TECHNIQUE: 2 views of the chest were obtained. FINDINGS: Redemonstrated coarse perihilar interstitial opacities, may be seen with airways disease. No focal consolidation. No pleural effusion or pneumothorax. Cardiomediastinal silhouette is unchanged. XR/XR chest 2V IMPRESSION: Redemonstrated coarse perihilar interstitial opacities, may be seen with chronic airways disease. No focal consolidation.
[2023-12-23 19:35] VITALS: BP 149/91; PULSE 102; RESP 16; TEMP 37.1; O2SAT 96; BMI 53.2
--- NOTE | 2023-12-23 19:38 | ED.GENADULT ---
HPI - General Adult General Chief complaint: Asthma Stated complaint: asthma sob Time Seen by Provider: 12/23/23 20:42 Source: patient Mode of arrival: ambulatory Limitations: no limitations History of Present Illness HPI narrative: 28-year-old male with known history of asthma came in for evaluation of shortness of breath for more than 1 day, patient has been using his bronchodilator and take getting prednisone. No coughing, no fever, no chills, no contact. Patient is speaking in full sentence with wheezing. Related Data Home Medications ?Medication ?Instructions ?Recorded ?Confirmed albuterol sulfate 2.5 mg/3 mL 2.5 mg inhalation Q6H PRN wheezing 10/08/23 10/08/23 (0.083 %) solution for nebulization albuterol sulfate 90 mcg/actuation 2 puff inhalation Q4-6H PRN 10/08/23 10/08/23 aerosol inhaler wheezing fluticasone 500 mcg-salmeterol 50 1 inh inhalation BID 10/08/23 10/08/23 mcg/dose blistr powdr for inhalation (Advair Diskus) montelukast 10 mg tablet 10 mg PO DAILY 10/08/23 10/08/23 Previous Rx's ?Medication ?Instructions ?Recorded nebulizer and compressor #1 ea 09/15/21 nebulizers (Aeroneb Go Nebulizer) #1 ea 04/18/22 prednisone 20 mg tablet 20 mg PO DAILY #5 tabs 10/08/23 prednisone 20 mg tablet 40 mg (2 x 20 mg) PO DAILY 5 days 11/13/23 #10 tabs albuterol sulfate 2.5 mg/3 mL 2.5 mg (3 mL) inhalation Q4-6H PRN 11/26/23 (0.083 %) solution for nebulization shortness of breath or wheezing #90 mL albuterol sulfate 90 mcg/actuation 2 puff inhalation Q4-6H PRN 11/26/23 aerosol inhaler (ProAir HFA) shortness of breath or wheezing #8.5 grams prednisone 20 mg tablet 40 mg (2 x 20 mg) PO DAILY #10 tabs 11/26/23 albuterol sulfate 2.5 mg/3 mL 2.5 mg (3 mL) inhalation Q6H #75 mL 12/07/23 (0.083 %) solution for nebulization albuterol sulfate 90 mcg/actuation 2 inh inhalation Q4-6H PRN 12/07/23 breath activated powder inhaler shortness of breath or wheezing #1 ea prednisone 50 mg tablet 50 mg PO DAILY 5 days #5 tabs 12/07/23 azithromycin 250 mg tablet See Rx Instructions PO .COMPLEX #6 12/13/23 tabs benzonatate 200 mg capsule 200 mg PO TID PRN cough 5 days #15 12/13/23 caps prednisone 20 mg tablet 40 mg (2 x 20 mg) PO DAILY 5 days 12/13/23 #10 tabs prednisone 20 mg tablet 20 mg PO BID #10 tabs 12/23/23 Allergies Allergy/AdvReac Type Severity Reaction Status Date / Time shellfish derived Allergy Severe SHORTNESS Verified 12/23/23 19:39 OF BREATH, SWELLING shrimp Allergy Severe ANAPHYLAXIS Verified 12/23/23 19:39 Review of Systems Review of Systems: All other systems are reviewed and are negative Constitutional: Reports as per HPI and Reports no additional constitutional complaints Eyes: Reports as per HPI and Reports no additional eye complaints Reports system reviewed and no additional complaints, except as documented Cardiovascular: Reports as per HPI and Reports no additional cardiovascular complaints Respiratory: Reports as per HPI and Reports no additional respiratory complaints Gastrointestinal: Reports as per HPI and Reports no additional gastrointestinal complaints Genitourinary: Reports no additional female genitourinary complaints Musculoskeletal: Reports no additional musculoskeletal complaints Skin/Breast: Reports system reviewed and no additional complaints, except as docu Psychiatric: Reports no additional psychiatric complaints Endocrine: Reports no additional endocrine complaints Hematologic/Lymphatic: Reports no additional hematologic/lymphatic complaints Allergic/Immunologic: Reports no additional allergic/immunologic complaints Reports system reviewed and no additional complaints, except as documented and Reports Abnormal speech present COUNT INCLUDES [facility] Past Medical History Medical History Asthma Pneumonia due to 2019 novel coronavirus Asthma Family History Family History Mother Asthma Social History Social History Household Members: None Housing: House Do you presently have visiting nurse or other home services: No Alcohol intake: never Patient Tobacco Use Status: Never used Tobacco Smoked in Last 30 Days: No Use of substances other than those prescribed or required for medical reasons: No Advance Directives: No Advance Directives Information Provided: No Do you have a plan to hurt others: No Plan service: No Current occupational status: unemployed Physical Exam ED Vital Signs: Vital Signs - 24 hr 12/23/23 19:35 12/23/23 19:49 12/23/23 19:56 Temperature 98.8 F 97.8 F Pulse Rate 102 H 91 104 H Respiratory Rate 16 19 18 Blood Pressure 149/91 H 144/79 H Pulse Oximetry 96 93 Oxygen Delivery Method Room Air Room Air 12/23/23 22:31 Temperature 98.1 F Pulse Rate 104 H Respiratory Rate 19 Blood Pressure 137/82 Pulse Oximetry 94 Oxygen Delivery Method Room Air BMI result Body Mass Index 53.2 Vital signs have been reviewed and appear to be correct. Blood pressure elevated. Heart rate normal. Respiratory rate normal. Temperature normal. Oxygen saturation normal. Appearance: Alert. Oriented X3. No acute distress. Head: Normal external exam. Normocephalic. Atraumatic. No Lindsey signs noted. No raccoon eyes noted Eyes: PERRLA. EOMI. Conjunctiva and sclera normal. Eyelids normal. ENT: TM's Normal. Pharynx normal. Uvula midline. Moist mucous membranes. No trismus noted. No drooling noted. No muffled voice noted. Neck: Normal inspection. Neck supple. FROM. No adenopathy. Thyroid Normal. No meningeal signs. No neck mass noted. CVS: Normal heart rate and rhythm. Heart sound normal. No murmurs noted. Pulses normal throughout. Respiratory: No respiratory distress. Painless inspiration. Breath sounds normal. Bilateral diffuse mild expiratory wheezing with prolonged expiration, Chest nontender. No accessory muscle usage noted or decreased air movement noted. Abdomen: Soft and nontender. Bowel sounds normal in all 4 quadrants. No distention noted. No organomegaly noted. No visible injury noted. Back: No CVA tenderness. Full range of motion noted. Skin: Skin warm and dry. Normal skin color. Normal skin turgor. No rashes/lesions/lacerations noted. Extremities: No lower extremity edema. Extremities exhibit normal range of motion. Extremities nontender. Neuro: Oriented X 3. Cranial nerve exam: II-XII are grossly intact No motor deficit. No sensory deficit. Reflexes normal. Course Course Course Narrative: This is a rapid medical exam completed by Merlin SCHUMACHER: Additional HPI, ROS, PE not included below will be deferred to primary provider. Concerns for 24 hour asthma exacerbation, using inhalers at home with no relief of symptoms. Also reports concern for shortness of breath and sensation of throat swelling after eating empanadas that may have been fried in the same oil as shrimp, which he is allergic to. Finished a course of prednisone today Reevaluation(s) Reevaluation #1: Bilateral expiratory wheezing with prolonged expiration, negative chest x-ray, RR 18-20., O2 sat is 96% at rest and 96% post exertion, patient feels much improvement after received bronchodilator. Will start the patient on prednisone. Time: 21:46 Medications Administered Generic Name Dose Route Start Last Admin Trade Name Freq PRN Reason Stop Dose Admin Famotidine 20 mg/ Sodium 52 mls @ 200 mls/hr 12/23/23 19:45 12/23/23 20:39 Chloride IV Infused ONCE ENRIKE Infusion Discontinued Medications Generic Name Dose Route Start Last Admin Trade Name Freq PRN Reason Stop Dose Admin Albuterol Sulfate 7.5 mg/ 10 mg 12/23/23 19:54 12/23/23 19:55 Albuterol Sulfate 2.5 mg INHALE 12/23/23 19:55 10 mg ONCE ONE Administration Diphenhydramine HCl 25 mg 12/23/23 19:40 12/23/23 20:19 Diphenhydramine Hcl 50 Mg/Ml Vial IVPUSH 12/23/23 19:41 25 mg ONCE ONE Administration Methylprednisolone Sodium 50 mls @ 50 mls/hr 12/23/23 19:40 12/23/23 21:40 Succinate 500 mg/ Sodium IV 12/23/23 20:39 Infused Chloride ONCE ONE Infusion Medical Decision Making Differential Diagnosis Differential Diagnoses: The differential diagnosis associated with the presentation includes (Pneumonia, pneumothorax, pleural effusion, asthma exacerbation, hypoxia.) Admission/Observation Consideration of admission/observation: Escalation of care including admission/observation considered Independent Interpretation I performed an independent interpretation of an: Plain X-Ray (Chest: Redemonstrated coarse perihilar interstitial opacities, may be seen with chronic airways disease. No focal consolidation. ) Radiology Impression Discussion of test interpretation with radiology: I have reviewed the radiologist's reading. Chronic Conditions Patient?s care impacted by: Other (Asthma) Discharge Plan Discharge Clinical Impression: Asthma with acute exacerbation Patient Disposition: Home, Self-Care Instructions: Asthma (ED) Prescriptions: New prednisone 20 mg tablet 20 mg PO BID Qty: 10 0RF No Action (DME) nebulizer and compressor Device See Rx Instructions .Route Qty: 1 0RF Rx Instructions: As directed (DME) nebulizers [Aeroneb Go Nebulizer] Misc See Rx Instructions .Route Qty: 1 0RF Rx Instructions: As directed albuterol sulfate 2.5 mg /3 mL (0.083 %) solution for nebulization 2.5 mg inhalation Q6H PRN (Reason: wheezing) albuterol sulfate 90 mcg/actuation HFA aerosol inhaler 2 puff inhalation Q4-6H PRN (Reason: wheezing) fluticasone propion-salmeterol [Advair Diskus] 500-50 mcg/dose Blister With Device 1 inh INHALATION BID montelukast 10 mg Tablet 10 mg PO DAILY prednisone 20 mg tablet 20 mg PO DAILY Qty: 5 0RF Rx Instructions: Take one tablet daily for five days. prednisone 20 mg tablet 40 mg PO DAILY 5 Days Qty: 10 0RF albuterol sulfate 2.5 mg /3 mL (0.083 %) solution for nebulization 2.5 mg inhalation Q4-6H PRN (Reason: shortness of breath or wheezing) Qty: 90 0RF prednisone 20 mg tablet 40 mg PO DAILY Qty: 10 0RF albuterol sulfate [ProAir HFA] 90 mcg/actuation HFA aerosol inhaler 2 puff inhalation Q4-6H PRN (Reason: shortness of breath or wheezing) Qty: 8.5 0RF prednisone 50 mg tablet 50 mg PO DAILY 5 Days Qty: 5 0RF albuterol sulfate 2.5 mg /3 mL (0.083 %) solution for nebulization 2.5 mg inhalation Q6H Qty: 75 0RF albuterol sulfate 90 mcg/actuation aerosol powdr breath activated 2 inh inhalation Q4-6H PRN (Reason: shortness of breath or wheezing) Qty: 1 0RF prednisone 20 mg tablet 40 mg PO DAILY 5 Days Qty: 10 0RF benzonatate 200 mg capsule 200 mg PO TID PRN (Reason: cough) 5 Days Qty: 15 0RF azithromycin 250 mg tablet See Rx Instructions .ROUTE .COMPLEX Qty: 6 0RF Rx Instructions: For 250 mg dose pack: take 500 mg today (day 1), then 250 mg for 4 days (days 2-5) Print Language: Dutch
[2023-12-23 19:49] VITALS: BP 144/79; PULSE 91; RESP 19; TEMP 36.6; O2SAT 93
[2023-12-23] MEDS: Albuterol Sulfate 7.5 MG, Albuterol Sulfate (0.083%) 2.5 MG 10 MG INHALE (19:55)
[2023-12-23 19:56] VITALS: PULSE 104; RESP 18; O2SAT 94
[2023-12-23] MEDS: diphenhydrAMINE HCL 50 MG/ML VIAL 25 MG IVPUSH (20:19)
[2023-12-23] MEDS: Famotidine/PF 20 MG in 0.9 % Sodium Chloride 50 ML 200 MG IV (20:20)
--- NOTE | 2023-12-23 20:24 | PC.NURSE ---
pt from home, a&ox4, respirations even and unlabored, pt noted to have expiratory wheezing bilaterally. pt reports hx of asthma, reports 24 hours of shortness of breath, reports taking albuterol without relief.pt denies chest pain. 20G placed in left ac, pt medicated per oct.
[2023-12-23] MEDS: methylPREDNISolone Sod Succ 500 MG in 0.9 % Sodium Chloride 50 ML 50 MG IV (20:40)
[2023-12-23 22:31] VITALS: BP 137/82; PULSE 104; RESP 19; TEMP 36.7; O2SAT 94
--- NOTE | 2023-12-23 22:33 | MHC.EDTECH ---
PATIENT WAS AMBULATED.PATIENTS O2 PRIOR TO AMBULATION WAS 96 ,PULSE RATE 97 AND RESPIRATIONS 18.DURING AMBULATION TRIAL PATIENTS PULSE RATE INCREASED TO 120 O2 STAYED AT 96 AND RESPIRATIONS WERE 18.
[2023-12-23 23:13] VITALS: BP 137/82; PULSE 94; RESP 19; TEMP 36.7; O2SAT 94
== END 2023-12-23 23:15 | disposition home or self-care (01) ==
PROVIDERS: Emergency Provider Emergency Medicine
DX: J45.901 Unspecified asthma with (acute) exacerbation (principal); R06.02 Shortness of breath
CPT/HCPCS: 71046; 94640; 96365; 96367; 96375; 99284; 99285; J1200; J2919

== ENCOUNTER 2024-01-22 16:36 | Emergency (ER) | payer MEDICAID, SELFPAY ==
--- NOTE | ~2024-01-22 | XR_ITS ---
EXAMINATION: XR CHEST CLINICAL INFORMATION: Chest pain COMPARISON: Previous chest x-ray most recent December 2023 TECHNIQUE: 2 views of the chest were obtained. FINDINGS: The cardiac silhouette does not appear enlarged. There are increased central bronchial markings questionable for asthma or bronchitis. Lungs otherwise clear without evidence of a lobar pneumonia. No pleural effusion or pneumothorax. Bony structures are normal. XR/XR chest 2V IMPRESSION: Increased central bronchial markings questionable for bronchitis or asthma. No evidence of lobar pneumonia.
[2024-01-22 16:51] VITALS: BP 138/89; PULSE 108; RESP 24; TEMP 37; O2SAT 92; BMI 42.5
--- NOTE | 2024-01-22 16:53 | ED_ITS ---
<Statement entered by Sourav Gomez MD - 02/07/24 15:01> Please refer to my note for detail of this encounter HPI - General Adult General Chief complaint: Asthma Stated complaint: diff breathing Time Seen by Provider: 01/22/24 17:15 Related Data Home Medications ?Medication ?Instructions ?Recorded ?Confirmed albuterol sulfate 2.5 mg/3 mL 2.5 mg inhalation Q6H PRN wheezing 10/08/23 10/08/23 (0.083 %) solution for nebulization albuterol sulfate 90 mcg/actuation 2 puff inhalation Q4-6H PRN 10/08/23 10/08/23 aerosol inhaler wheezing fluticasone 500 mcg-salmeterol 50 1 inh inhalation BID 10/08/23 10/08/23 mcg/dose blistr powdr for inhalation (Advair Diskus) montelukast 10 mg tablet 10 mg PO DAILY 10/08/23 10/08/23 Previous Rx's ?Medication ?Instructions ?Recorded nebulizer and compressor #1 ea 09/15/21 nebulizers (Aeroneb Go Nebulizer) #1 ea 04/18/22 prednisone 20 mg tablet 20 mg PO DAILY #5 tabs 10/08/23 prednisone 20 mg tablet 40 mg (2 x 20 mg) PO DAILY 5 days 11/13/23 #10 tabs albuterol sulfate 2.5 mg/3 mL 2.5 mg (3 mL) inhalation Q4-6H PRN 11/26/23 (0.083 %) solution for nebulization shortness of breath or wheezing #90 mL albuterol sulfate 90 mcg/actuation 2 puff inhalation Q4-6H PRN 11/26/23 aerosol inhaler (ProAir HFA) shortness of breath or wheezing #8.5 grams prednisone 20 mg tablet 40 mg (2 x 20 mg) PO DAILY #10 tabs 11/26/23 albuterol sulfate 2.5 mg/3 mL 2.5 mg (3 mL) inhalation Q6H #75 mL 12/07/23 (0.083 %) solution for nebulization albuterol sulfate 90 mcg/actuation 2 inh inhalation Q4-6H PRN 12/07/23 breath activated powder inhaler shortness of breath or wheezing #1 ea prednisone 50 mg tablet 50 mg PO DAILY 5 days #5 tabs 12/07/23 azithromycin 250 mg tablet See Rx Instructions PO .COMPLEX #6 12/13/23 tabs benzonatate 200 mg capsule 200 mg PO TID PRN cough 5 days #15 12/13/23 caps prednisone 20 mg tablet 40 mg (2 x 20 mg) PO DAILY 5 days 12/13/23 #10 tabs prednisone 20 mg tablet 20 mg PO BID #10 tabs 12/23/23 budesonide-formoterol HFA 160 1 puff inhalation BID #10.2 grams 01/22/24 mcg-4.5 mcg/actuation aerosol inhaler (Symbicort) prednisone 50 mg tablet 50 mg PO DAILY #4 tabs 01/22/24 Allergies Allergy/AdvReac Type Severity Reaction Status Date / Time shellfish derived Allergy Severe SHORTNESS Verified 01/22/24 16:53 OF BREATH, SWELLING shrimp Allergy Severe ANAPHYLAXIS Verified 01/22/24 16:53 PMFSH Past Medical History Medical History Asthma Pneumonia due to 2019 novel coronavirus Asthma Family History Family History Mother Asthma Social History Social History Household Members: None Housing: House Do you presently have visiting nurse or other home services: No Alcohol intake: never Patient Tobacco Use Status: Never used Tobacco Smoked in Last 30 Days: No Use of substances other than those prescribed or required for medical reasons: No Advance Directives: No Advance Directives Information Provided: No Do you have a plan to hurt others: No Plan service: No Current occupational status: unemployed Physical Exam ED Vital Signs: BMI result Body Mass Index 42.5 Course Course Course Narrative: RME performed by Cynthia Deluac PA-C. Patient is a 28 year old assigned male at presenting to the emergency department with increased wheezing and shortness of breath. Patient states he has a history of asthma and has increased shortness of breath. Detailed physical exam and review of systems are deferred to the admissions clinician. EKG, labs, imaging, and swabs ordered. Patient placed back in the waiting room pending room availability and results. Patient seen and dispositioned by Dr. Gomez. Please refer to his note from this encounter date. Medications Administered Discontinued Medications Generic Name Dose Route Start Last Admin Trade Name Jrq PRN Reason Stop Dose Admin Albuterol Sulfate 5 mg/ 0 mg 01/22/24 17:17 01/22/24 17:19 Albuterol/Ipratropium 3 ml INHALE 01/22/24 17:18 7.5 each ONCE ONE Administration Magnesium Sulfate/Dextrose 1 gm in 100 mls @ 100 mls/hr 01/22/24 16:56 01/22/24 18:34 Magnesium Sulfate/D5w IV 01/22/24 17:55 Infused ONCE ONE Infusion Methylprednisolone Sodium Succinate 60 mg 01/22/24 16:56 01/22/24 17:24 Methylprednisolone Sod Succ 125 Mg/2 Ml Vial IVPUSH 01/22/24 16:57 60 mg ONCE ONE Administration Medical Decision Making Lab Data 01/22/24 17:17 01/22/24 17:17 Labs: Lab Results 01/22/24 Range/Units 17:17 WBC 11.0 H (4.8-10.8) X10*3/uL RBC 5.08 (4.60-5.80) X10*6/uL Hgb 14.4 (14.0-18.0) g/dl Hct 41.1 L (42.0-52.0) % MCV 80.9 (80.0-98.0) fL MCH 28.3 (27.0-33.0) pg MCHC 35.0 (31.0-36.0) g/dl RDW 12.8 (11.0-16.0) % Plt Count 360 (160-400) X10*3/uL MPV 9.8 (9.4-12.4) fL Immature Gran % (Auto) 0.7 H (0.0-0.4) % Neut % (Auto) 51.1 (45-73) % Lymph % (Auto) 27.3 (20-40) % [place] % (Auto) 7.5 (2-11) % Eos % (Auto) 11.5 H (0-4) % Baso % (Auto) 1.9 (0-2) % Lymph # (Auto) 3.0 (1.2-4.9) X10*3/uL [place] # (Auto) 0.8 (0.1-1.2) X10*3/uL Eos # (Auto) 1.3 H (0.0-0.4) X10*3/uL Baso # (Auto) 0.2 (0.0-0.2) X10*3/uL Abs Immat Gran (auto) 0.08 H (0.00-0.03) X10*3/uL Absolute Neuts (auto) 5.6 (2.0-8.3) x10*3/uL Absolute Nucleated RBC 0.000 (0.0-0.012) X10*3/uL Nucleated RBC % (auto) 0.0 (0.0-0.2) /100WBC Hold Blue Top SEE NOTE Sodium 137 (135-145) mmol/L Potassium 4.1 (3.3-5.1) mmol/L Chloride 112 H (96-108) mmol/L Carbon Dioxide 18 L (22-29) mmol/L Anion Gap 11 L (12-20) BUN 6 L (9-16) mg/dL Creatinine 0.78 (0.5-1.4) mg/dL Estim Creat Clear Calc 153.5 Estimated GFR > 60 Random Glucose 81 (60-115) mg/dL Calcium 8.7 (8.4-10.2) mg/dL Magnesium 2.0 (1.6-2.6) mg/dL Total Bilirubin 0.4 (0.0-1.0) mg/dL AST 34 (5-37) U/L ALT 29 (0-40) U/L Alkaline Phosphatase 84 (39-117) U/L Troponin I High Sens < 2.7 (<3.5-35.0) ng/L Total Protein 7.5 (6.5-8.0) g/dL Albumin 3.9 (3.5-5.0) g/dL Influenza Type A (PCR) NEGATIVE (Negative) Influenza Type B (PCR) NEGATIVE (Negative) RSV RNA Qual (PCR) NEGATIVE (Negative) SARS-CoV-2 RNA (RT-PCR) NEGATIVE (Negative) Discharge Plan Discharge Clinical Impression: Asthma Patient Disposition: Home, Self-Care Instructions: Asthma (DC), How to Use a Metered-Dose Inhaler and a Spacer (ED) Additional Instructions: You were seen in the emergency room for asthma attack. Your chest x-ray and blood work were unremarkable. At this time you do not require admission however we would like you to start a course of steroids for the next 4 days You received the 1st dose in the emergency room please take prednisone 50 mg once a day. In addition we also like her to start on inhaler cause Symbicort please take 1 puff in the morning and 1 puff at night plus a puff every time you feel short of breath. If in a span of 24 hours use more than 12 past return to the emergency room. Also return to the emergency room if you feel that you get severely short of breath . Prescriptions: New budesonide-formoterol [Symbicort] 160-4.5 mcg/actuation HFA aerosol inhaler 1 puff inhalation BID Qty: 10.2 0RF prednisone 50 mg tablet 50 mg PO DAILY Qty: 4 0RF No Action (DME) nebulizer and compressor Device See Rx Instructions .Route Qty: 1 0RF Rx Instructions: As directed (DME) nebulizers [Aeroneb Go Nebulizer] Misc See Rx Instructions .Route Qty: 1 0RF Rx Instructions: As directed prednisone 20 mg tablet 20 mg PO BID Qty: 10 0RF albuterol sulfate 2.5 mg /3 mL (0.083 %) solution for nebulization 2.5 mg inhalation Q6H PRN (Reason: wheezing) albuterol sulfate 90 mcg/actuation HFA aerosol inhaler 2 puff inhalation Q4-6H PRN (Reason: wheezing) fluticasone propion-salmeterol [Advair Diskus] 500-50 mcg/dose Blister With Device 1 inh INHALATION BID montelukast 10 mg Tablet 10 mg PO DAILY prednisone 20 mg tablet 20 mg PO DAILY Qty: 5 0RF Rx Instructions: Take one tablet daily for five days. prednisone 20 mg tablet 40 mg PO DAILY 5 Days Qty: 10 0RF albuterol sulfate 2.5 mg /3 mL (0.083 %) solution for nebulization 2.5 mg inhalation Q4-6H PRN (Reason: shortness of breath or wheezing) Qty: 90 0RF prednisone 20 mg tablet 40 mg PO DAILY Qty: 10 0RF albuterol sulfate [ProAir HFA] 90 mcg/actuation HFA aerosol inhaler 2 puff inhalation Q4-6H PRN (Reason: shortness of breath or wheezing) Qty: 8.5 0RF prednisone 50 mg tablet 50 mg PO DAILY 5 Days Qty: 5 0RF albuterol sulfate 2.5 mg /3 mL (0.083 %) solution for nebulization 2.5 mg inhalation Q6H Qty: 75 0RF albuterol sulfate 90 mcg/actuation aerosol powdr breath activated 2 inh inhalation Q4-6H PRN (Reason: shortness of breath or wheezing) Qty: 1 0RF prednisone 20 mg tablet 40 mg PO DAILY 5 Days Qty: 10 0RF benzonatate 200 mg capsule 200 mg PO TID PRN (Reason: cough) 5 Days Qty: 15 0RF azithromycin 250 mg tablet See Rx Instructions .ROUTE .COMPLEX Qty: 6 0RF Rx Instructions: For 250 mg dose pack: take 500 mg today (day 1), then 250 mg for 4 days (days 2-5) Interventions: ED Discharge Assessment Last Done: 01/22/24 19:33 Discharge Date/Time: 01/22/24 19:34 Print Language: Latvian
--- NOTE | 2024-01-22 16:54 | ECG_ITS ---
Test Reason : SOB Blood Pressure : / mmHG Vent. Rate : 093 BPM Atrial Rate : 093 BPM P-R Int : 134 ms QRS Dur : 088 ms QT Int : 336 ms P-R-T Axes : 053 071 052 degrees QTc Int : 417 ms Normal sinus rhythm with sinus arrhythmia Normal ECG When compared with ECG of 12-DEC-2023 23:56, No significant change was found Referred By: Cynthia Deluca Electronically Signed By:ERIKA VILLARREAL
[2024-01-22] MEDS: Albuterol Sulfate 5 MG, Albuterol/Iprat 2.5/0.5MG 3 ML 3 ML INHALE (17:19)
[2024-01-22 17:22] VITALS: PULSE 103; RESP 24; O2SAT 93
--- NOTE | 2024-01-22 17:22 | ED.ASTHMA ---
HPI - Asthma General Chief Complaint: Asthma Stated Complaint: diff breathing Time Seen by Provider: 01/22/24 17:15 Source: patient Limitations: no limitations History of Present Illness HPI Narrative: 28 years old with history of asthma, presents to the emergency room for shortness of breath that started yesterday. Patient reports that he is being using his Ventolin past multiple times a day, 2 puffs of the time. On arrival patient is tachypneic, saturating 92% in room air, patient denies chills or fever at home. Abdominal pain nausea or vomiting. Denies chest pain and reports shortness of breath and wheezing. Started on steroids and bronchodilator protocol in triage. Related Data Home Medications ?Medication ?Instructions ?Recorded ?Confirmed albuterol sulfate 2.5 mg/3 mL 2.5 mg inhalation Q6H PRN wheezing 10/08/23 10/08/23 (0.083 %) solution for nebulization albuterol sulfate 90 mcg/actuation 2 puff inhalation Q4-6H PRN 10/08/23 10/08/23 aerosol inhaler wheezing fluticasone 500 mcg-salmeterol 50 1 inh inhalation BID 10/08/23 10/08/23 mcg/dose blistr powdr for inhalation (Advair Diskus) montelukast 10 mg tablet 10 mg PO DAILY 10/08/23 10/08/23 Previous Rx's ?Medication ?Instructions ?Recorded nebulizer and compressor #1 ea 09/15/21 nebulizers (Aeroneb Go Nebulizer) #1 ea 04/18/22 prednisone 20 mg tablet 20 mg PO DAILY #5 tabs 10/08/23 prednisone 20 mg tablet 40 mg (2 x 20 mg) PO DAILY 5 days 11/13/23 #10 tabs albuterol sulfate 2.5 mg/3 mL 2.5 mg (3 mL) inhalation Q4-6H PRN 11/26/23 (0.083 %) solution for nebulization shortness of breath or wheezing #90 mL albuterol sulfate 90 mcg/actuation 2 puff inhalation Q4-6H PRN 11/26/23 aerosol inhaler (ProAir HFA) shortness of breath or wheezing #8.5 grams prednisone 20 mg tablet 40 mg (2 x 20 mg) PO DAILY #10 tabs 11/26/23 albuterol sulfate 2.5 mg/3 mL 2.5 mg (3 mL) inhalation Q6H #75 mL 12/07/23 (0.083 %) solution for nebulization albuterol sulfate 90 mcg/actuation 2 inh inhalation Q4-6H PRN 12/07/23 breath activated powder inhaler shortness of breath or wheezing #1 ea prednisone 50 mg tablet 50 mg PO DAILY 5 days #5 tabs 12/07/23 azithromycin 250 mg tablet See Rx Instructions PO .COMPLEX #6 12/13/23 tabs benzonatate 200 mg capsule 200 mg PO TID PRN cough 5 days #15 12/13/23 caps prednisone 20 mg tablet 40 mg (2 x 20 mg) PO DAILY 5 days 12/13/23 #10 tabs prednisone 20 mg tablet 20 mg PO BID #10 tabs 12/23/23 budesonide-formoterol HFA 160 1 puff inhalation BID #10.2 grams 01/22/24 mcg-4.5 mcg/actuation aerosol inhaler (Symbicort) prednisone 50 mg tablet 50 mg PO DAILY #4 tabs 01/22/24 Allergies Allergy/AdvReac Type Severity Reaction Status Date / Time shellfish derived Allergy Severe SHORTNESS Verified 01/22/24 16:53 OF BREATH, SWELLING shrimp Allergy Severe ANAPHYLAXIS Verified 01/22/24 16:53 Review of Systems Review of Systems: Yes all other systems are reviewed and are negative [facility] Past Medical History Medical History Asthma Pneumonia due to 2019 novel coronavirus Asthma Family History Family History Mother Asthma Social History Social History Household Members: None Housing: House Do you presently have visiting nurse or other home services: No Alcohol intake: never Patient Tobacco Use Status: Never used Tobacco Advance Directives: No Advance Directives Information Provided: No Do you have a plan to hurt others: No Plan service: No Current occupational status: unemployed Physical Exam Vital Signs: Vital Signs: Last Vital Signs Temp 98.6 F 01/22/24 16:51 Pulse 103 H 01/22/24 17:22 Resp 24 H 01/22/24 17:22 BP 138/89 01/22/24 16:51 Pulse Ox 92 01/22/24 16:51 O2 Del Method Room Air 01/22/24 16:51 BMI result Body Mass Index 42.5 General: Alert, Not in Distress Skin: No rash, warm HEENT: Atraumatic, No Exudate or Pharyngeal Erythema Resp: Bilateral expiratory wheezing Cardio: Regular rate and Rhythm, Normal S1, S2 ABD: Abd soft, non tender, no guarding or rebound. Normal Bowel sounds. : No cva tenderness Neuro: Alert, oriented x4, PERRL Strenght 5/5 on all extremities Sensation is preserved in both lower and upper extremities Index to nose: normal Cranial Nerves II-XII grossly intact No dysarthria, or aphasia No neglet. Visual doan are normal bilaterally Psych: Cooperative, NO SI Course Reevaluation(s) Reevaluation #1: Patient reports improvement of his symptoms. I personally reviewed and interpreted the patient's chest x-ray which is normal. I personally interpreted the patient blood work which is unremarkable except for eosinophilia which is consistent with asthma. COVID flu RSV negative. At this time I do not think patient requires further observation or admission. Will discharge on course of oral steroids and will prescribed Symbicort. I went over the patient the use of spacer which I provided the patient and prescription for Symbicort. In the meantime if patient is unable to get Symbicort tonight I instructed him to use albuterol 6 puffs p.r.n.. Patient knows that if use more than 6 puffs of albuterol x2 or from tomorrow if he uses more than 12 puffs of Symbicort he needs to return to the emergency room. Time: 18:43 Medications Administered Discontinued Medications Generic Name Dose Route Start Last Admin Trade Name Freq PRN Reason Stop Dose Admin Albuterol Sulfate 5 mg/ 0 mg 01/22/24 17:17 01/22/24 17:19 Albuterol/Ipratropium 3 ml INHALE 01/22/24 17:18 7.5 each ONCE ONE Administration Magnesium Sulfate/Dextrose 1 gm in 100 mls @ 100 mls/hr 01/22/24 16:56 01/22/24 18:34 Magnesium Sulfate/D5w IV 01/22/24 17:55 Infused ONCE ONE Infusion Methylprednisolone Sodium Succinate 60 mg 01/22/24 16:56 01/22/24 17:24 Methylprednisolone Sod Succ 125 Mg/2 Ml Vial IVPUSH 01/22/24 16:57 60 mg ONCE ONE Administration Medical Decision Making Medical Decision Making [facility] Narrative: Presented to the emergency room for what it looks like [id number] asthma exacerbation. Other possible differential diagnosis includes pneumonia although less likely. Plan Chest x-ray CBC, BMP, VBG Albuterol Steroids Mg ordered in triage Admission/Observation Consideration of admission/observation: Escalation of care including admission/observation considered Lab Data [facility] Lab Attestation statement: I reviewed the patient's lab results. 01/22/24 17:17 01/22/24 17:17 Labs: Lab Results 01/22/24 Range/Units 17:17 WBC 11.0 H (4.8-10.8) X10*3/uL RBC 5.08 (4.60-5.80) X10*6/uL Hgb 14.4 (14.0-18.0) g/dl Hct 41.1 L (42.0-52.0) % MCV 80.9 (80.0-98.0) fL MCH 28.3 (27.0-33.0) pg MCHC 35.0 (31.0-36.0) g/dl RDW 12.8 (11.0-16.0) % Plt Count 360 (160-400) X10*3/uL MPV 9.8 (9.4-12.4) fL Immature Gran % (Auto) 0.7 H (0.0-0.4) % Neut % (Auto) 51.1 (45-73) % Lymph % (Auto) 27.3 (20-40) % [place] % (Auto) 7.5 (2-11) % Eos % (Auto) 11.5 H (0-4) % Baso % (Auto) 1.9 (0-2) % Lymph # (Auto) 3.0 (1.2-4.9) X10*3/uL [place] # (Auto) 0.8 (0.1-1.2) X10*3/uL Eos # (Auto) 1.3 H (0.0-0.4) X10*3/uL Baso # (Auto) 0.2 (0.0-0.2) X10*3/uL Abs Immat Gran (auto) 0.08 H (0.00-0.03) X10*3/uL Absolute Neuts (auto) 5.6 (2.0-8.3) x10*3/uL Absolute Nucleated RBC 0.000 (0.0-0.012) X10*3/uL Nucleated RBC % (auto) 0.0 (0.0-0.2) /100WBC Hold Blue Top SEE NOTE Sodium 137 (135-145) mmol/L Potassium 4.1 (3.3-5.1) mmol/L Chloride 112 H (96-108) mmol/L Carbon Dioxide 18 L (22-29) mmol/L Anion Gap 11 L (12-20) BUN 6 L (9-16) mg/dL Creatinine 0.78 (0.5-1.4) mg/dL Estim Creat Clear Calc 153.5 Estimated GFR > 60 Random Glucose 81 (60-115) mg/dL Calcium 8.7 (8.4-10.2) mg/dL Magnesium 2.0 (1.6-2.6) mg/dL Total Bilirubin 0.4 (0.0-1.0) mg/dL AST 34 (5-37) U/L ALT 29 (0-40) U/L Alkaline Phosphatase 84 (39-117) U/L Troponin I High Sens < 2.7 (<3.5-35.0) ng/L Total Protein 7.5 (6.5-8.0) g/dL Albumin 3.9 (3.5-5.0) g/dL Influenza Type A (PCR) NEGATIVE (Negative) Influenza Type B (PCR) NEGATIVE (Negative) RSV RNA Qual (PCR) NEGATIVE (Negative) SARS-CoV-2 RNA (RT-PCR) NEGATIVE (Negative) Independent Interpretation I performed an independent interpretation of an: EKG (I personally reviewed and interpreted the patient's EKG that shows sinus rhythm.) and Plain X-Ray (I personally reviewed and interpreted the patient's chest x-ray: Normal chest x-ray) Discharge Plan Discharge Clinical Impression: Asthma Patient Disposition: Home, Self-Care Instructions: Asthma (DC), How to Use a Metered-Dose Inhaler and a Spacer (ED) Additional Instructions: You were seen in the emergency room for asthma attack. Your chest x-ray and blood work were unremarkable. At this time you do not require admission however we would like you to start a course of steroids for the next 4 days You received the 1st dose in the emergency room please take prednisone 50 mg once a day. In addition we also like her to start on inhaler cause Symbicort please take 1 puff in the morning and 1 puff at night plus a puff every time you feel short of breath. If in a span of 24 hours use more than 12 past return to the emergency room. Also return to the emergency room if you feel that you get severely short of breath . Prescriptions: New budesonide-formoterol [Symbicort] 160-4.5 mcg/actuation HFA aerosol inhaler 1 puff inhalation BID Qty: 10.2 0RF prednisone 50 mg tablet 50 mg PO DAILY Qty: 4 0RF No Action (DME) nebulizer and compressor Device See Rx Instructions .Route Qty: 1 0RF Rx Instructions: As directed (DME) nebulizers [Aeroneb Go Nebulizer] Misc See Rx Instructions .Route Qty: 1 0RF Rx Instructions: As directed prednisone 20 mg tablet 20 mg PO BID Qty: 10 0RF albuterol sulfate 2.5 mg /3 mL (0.083 %) solution for nebulization 2.5 mg inhalation Q6H PRN (Reason: wheezing) albuterol sulfate 90 mcg/actuation HFA aerosol inhaler 2 puff inhalation Q4-6H PRN (Reason: wheezing) fluticasone propion-salmeterol [Advair Diskus] 500-50 mcg/dose Blister With Device 1 inh INHALATION BID montelukast 10 mg Tablet 10 mg PO DAILY prednisone 20 mg tablet 20 mg PO DAILY Qty: 5 0RF Rx Instructions: Take one tablet daily for five days. prednisone 20 mg tablet 40 mg PO DAILY 5 Days Qty: 10 0RF albuterol sulfate 2.5 mg /3 mL (0.083 %) solution for nebulization 2.5 mg inhalation Q4-6H PRN (Reason: shortness of breath or wheezing) Qty: 90 0RF prednisone 20 mg tablet 40 mg PO DAILY Qty: 10 0RF albuterol sulfate [ProAir HFA] 90 mcg/actuation HFA aerosol inhaler 2 puff inhalation Q4-6H PRN (Reason: shortness of breath or wheezing) Qty: 8.5 0RF prednisone 50 mg tablet 50 mg PO DAILY 5 Days Qty: 5 0RF albuterol sulfate 2.5 mg /3 mL (0.083 %) solution for nebulization 2.5 mg inhalation Q6H Qty: 75 0RF albuterol sulfate 90 mcg/actuation aerosol powdr breath activated 2 inh inhalation Q4-6H PRN (Reason: shortness of breath or wheezing) Qty: 1 0RF prednisone 20 mg tablet 40 mg PO DAILY 5 Days Qty: 10 0RF benzonatate 200 mg capsule 200 mg PO TID PRN (Reason: cough) 5 Days Qty: 15 0RF azithromycin 250 mg tablet See Rx Instructions .ROUTE .COMPLEX Qty: 6 0RF Rx Instructions: For 250 mg dose pack: take 500 mg today (day 1), then 250 mg for 4 days (days 2-5) Print Language: Malay
[2024-01-22] MEDS: methylPREDNISolone Sod Succ 125 MG/2 ML VIAL 60 MG IVPUSH (17:24)
[2024-01-22] MEDS: Magnesium Sulfate/D5W 1 GM/100 ML PIGGYBACK IV (17:25)
[2024-01-22 17:27] LABS: MANUAL DIFF FLAG NO
[2024-01-22 17:34] LABS: Basophils Absolute Auto 0.2 X10*3/uL (0.0-0.2); Basophils Percent Auto 1.9 % (0-2); Eosinophils Absolute Auto 1.3 X10*3/uL (0.0-0.4); Eosinophils Percent Auto 11.5 % (0-4); Hematocrit 41.1 % (42.0-52.0); Hemoglobin 14.4 g/dl (14.0-18.0); Imm Gran Abs Auto 0.08 X10*3/uL (0.00-0.03); Imm Gran Pct Auto 0.7 % (0.0-0.4); Lymphocytes Percent Auto 27.3 % (20-40); Mean Corpuscular Hemoglobin 28.3 pg (27.0-33.0); Mean Corpuscular Volume 80.9 fL (80.0-98.0); Mean Platelet Volume 9.8 fL (9.4-12.4); Monocytes Absolute Auto 0.8 X10*3/uL (0.1-1.2); Monocytes Percent Auto 7.5 % (2-11); Neutrophils Absolute Auto 5.6 x10*3/uL (2.0-8.3); Neutrophils Percent Auto 51.1 % (45-73); Platelet Count 360 X10*3/uL (160-400); Red Blood Count 5.08 X10*6/uL (4.60-5.80); Red Cell Distribution Width 12.8 % (11.0-16.0)
[2024-01-22 17:59] LABS: Alanine Aminotransferase 29 U/L (0-40); Albumin Level 3.9 g/dL (3.5-5.0); Alkaline Phosphatase 84 U/L (39-117); Anion Gap 11 (12-20); Aspartate Amino Transferase 34 U/L (5-37); Bilirubin Total 0.4 mg/dL (0.0-1.0); Blood Urea Nitrogen 6 mg/dL (9-16); Calcium 8.7 mg/dL (8.4-10.2); Carbon Dioxide 18 mmol/L (22-29); Chloride 112 mmol/L (96-108); Creatinine Clr Calc Pharmacy 153.5; Estimated Glomerular Filt Rate > 60; Glucose Random 81 mg/dL (60-115); Potassium 4.1 mmol/L (3.3-5.1); Sodium 137 mmol/L (135-145); Total Protein 7.5 g/dL (6.5-8.0)
[2024-01-22 18:06] LABS: Troponin-I High Sensitivity < 2.7 ng/L (<3.5-35.0)
[2024-01-22 18:32] LABS: Influenza A PCR NEGATIVE (Negative); Influenza B PCR NEGATIVE (Negative); Resp Syncy Virus RNA Qual PCR NEGATIVE (Negative); SARS COV2 PCR INHOUSE NEGATIVE (Negative)
[2024-01-22 19:08] VITALS: BP 132/62; PULSE 102; RESP 18; TEMP 37.4; O2SAT 92
[2024-01-22 19:33] VITALS: BP 132/62; PULSE 102; RESP 18; TEMP 37.4; O2SAT 94
== END 2024-01-22 19:34 | disposition home or self-care (01) ==
PROVIDERS: Physician Assistant Medical; Emergency Provider Student in an Organized Health Care Education/Training Program
DX: J45.909 Unspecified asthma, uncomplicated (principal)
CPT/HCPCS: 0241U; 71046; 80053; 83735; 84484; 85025; 93005; 94640; 96365; 99284; 99285; J2919; J3475

== ENCOUNTER → 2024-01-22 16:54 | Outpatient (BNV) | payer MEDICAID, SELFPAY | PROVIDERS: Emergency Provider Student in an Organized Health Care Education/Training Program; Visit Provider Internal Medicine | DX: R06.02 Shortness of breath (principal) | CPT/HCPCS: 93010 ==

== ENCOUNTER 2024-06-04 20:32 | Emergency (ER) | payer OTHER, SELFPAY ==
--- NOTE | ~2024-06-04 | XR_ITS ---
EXAMINATION: XR CHEST CLINICAL INFORMATION: Shortness of breath COMPARISON: None available. TECHNIQUE: Frontal view of the chest was obtained. FINDINGS: No significant abnormality is noted involving the heart, lungs, mediastinum, bony thorax or soft tissues. XR/XR chest 1V IMPRESSION: Unremarkable examination. Electronically signed by: Parveen Paul DO 06/04/2024 10:20 PM EDT
--- NOTE | 2024-06-04 20:40 | ED_ITS ---
HPI - Asthma General Chief Complaint: Dyspnea Stated Complaint: Asthma Time Seen by Provider: 06/04/24 21:03 Source: patient Mode of arrival: ambulatory Limitations: no limitations History of Present Illness HPI Narrative: Patient is a 29-year-old male who presents emergency department for evaluation of reported asthma exacerbation. He reports that over the past 6-8 hours he has been having increasing shortness of breath and wheezing despite use of his nebulizing treatments at home. He is known to this emergency department frequent asthma exacerbations. He reports he has not needed inpatient admission for at least 5 or 6 months, states he has not been any steroids recently. Denies recent upper respiratory symptoms cough sneezing runny nose fevers chills or additional complaints at this time. Related Data Home Medications ?Medication ?Instructions ?Recorded ?Confirmed albuterol sulfate 2.5 mg/3 mL 2.5 mg inhalation Q6H PRN wheezing 10/08/23 10/08/23 (0.083 %) solution for nebulization albuterol sulfate 90 mcg/actuation 2 puff inhalation Q4-6H PRN 10/08/23 10/08/23 aerosol inhaler wheezing fluticasone 500 mcg-salmeterol 50 1 inh inhalation BID 10/08/23 10/08/23 mcg/dose blistr powdr for inhalation (Advair Diskus) montelukast 10 mg tablet 10 mg PO DAILY 10/08/23 10/08/23 Previous Rx's ?Medication ?Instructions ?Recorded nebulizer and compressor #1 ea 09/15/21 nebulizers (Aeroneb Go Nebulizer) #1 ea 04/18/22 prednisone 20 mg tablet 20 mg PO DAILY #5 tabs 10/08/23 prednisone 20 mg tablet 40 mg (2 x 20 mg) PO DAILY 5 days 11/13/23 #10 tabs albuterol sulfate 2.5 mg/3 mL 2.5 mg (3 mL) inhalation Q4-6H PRN 11/26/23 (0.083 %) solution for nebulization shortness of breath or wheezing #90 mL albuterol sulfate 90 mcg/actuation 2 puff inhalation Q4-6H PRN 11/26/23 aerosol inhaler (ProAir HFA) shortness of breath or wheezing #8.5 grams prednisone 20 mg tablet 40 mg (2 x 20 mg) PO DAILY #10 tabs 11/26/23 albuterol sulfate 2.5 mg/3 mL 2.5 mg (3 mL) inhalation Q6H #75 mL 12/07/23 (0.083 %) solution for nebulization albuterol sulfate 90 mcg/actuation 2 inh inhalation Q4-6H PRN 12/07/23 breath activated powder inhaler shortness of breath or wheezing #1 ea prednisone 50 mg tablet 50 mg PO DAILY 5 days #5 tabs 12/07/23 azithromycin 250 mg tablet See Rx Instructions PO .COMPLEX #6 12/13/23 tabs benzonatate 200 mg capsule 200 mg PO TID PRN cough 5 days #15 12/13/23 caps prednisone 20 mg tablet 40 mg (2 x 20 mg) PO DAILY 5 days 12/13/23 #10 tabs prednisone 20 mg tablet 20 mg PO BID #10 tabs 12/23/23 budesonide-formoterol HFA 160 1 puff inhalation BID #10.2 grams 01/22/24 mcg-4.5 mcg/actuation aerosol inhaler (Symbicort) prednisone 50 mg tablet 50 mg PO DAILY #4 tabs 01/22/24 prednisone 20 mg tablet 40 mg (2 x 20 mg) PO DAILY 5 days 06/05/24 #10 tabs Allergies Allergy/AdvReac Type Severity Reaction Status Date / Time shellfish derived Allergy Severe SHORTNESS Verified 06/04/24 20:42 OF BREATH, SWELLING shrimp Allergy Severe ANAPHYLAXIS Verified 06/04/24 20:42 Review of Systems 2 Review of Systems: Yes all other systems are reviewed and are negative PMFSH Past Medical History Attestation statement: The following information was validated with the patient. Source: old records reviewed Medical History Asthma Pneumonia due to 2019 novel coronavirus Asthma Family History Family History Mother Asthma Social History Social History Household Members: None Housing: House Do you presently have visiting nurse or other home services: No Alcohol intake: never Patient Tobacco Use Status: Never used Tobacco Smoked in Last 30 Days: No Use of substances other than those prescribed or required for medical reasons: No Advance Directives: No Advance Directives Information Provided: No Do you have a plan to hurt others: No Plan service: No Current occupational status: unemployed Physical Exam 2 Vital Signs: Vital Signs: Last Vital Signs Temp 97.7 F 06/05/24 00:08 Pulse 102 H 06/05/24 00:08 Resp 24 H 06/05/24 00:08 BP 121/69 06/05/24 00:08 Pulse Ox 91 L 06/05/24 00:08 O2 Del Method Room Air 06/05/24 00:08 BMI result Body Mass Index 43.9 Appearance: Alert.?Oriented to person, place and time. No acute distress.?Normal affect. Eyes: Pupils equal, round and reactive to light.? ENT: Pharynx normal.?? Neck: Normal inspection.? Neck supple.?? CVS: Heart sounds normal. Tachycardia Pulses normal.?? Respiratory: Diffuse inspiratory and expiratory wheezing. Tachypnea, tachycardia, increased work of breathing. No tripoding Abdomen: Soft and non-tender. Normoactive bowel sounds. Skin: Skin warm and dry.? Normal skin color.? Extremities: No lower extremity edema.? No calf ttp? Neuro: Moves all extremities spontaneously. Sensation intact bilaterally. CN II- XII intact. No focal neuro deficits. Ambulates with normal steady gait. Course Course Course Narrative: This is a rapid medical exam performed by Jaz Welch PA-C. The patient is a 29-year-old male with a history of asthma with frequent acute exacerbations, presents with acute onset wheezing over the past 6 hours. Patient states he has been utilizing his home nebulizing treatment without relief from symptoms. Denies preceding viral syndrome, no fevers. On exam, the patient is tachypneic, tachycardic, with weight-bearing oxygen saturation, he is diffusely wheezy. We are going to expedite his assessment and get him back into the main ED. we will be screening basic labs, chest x-ray, viral panel, ordering bronchodilator protocol and steroid. Reevaluation(s) Reevaluation #1: Re-evaluation remained and mild increased work of breathing especially on exertion, at rest appeared well, does not feel well enough to go home at this time. Will received Xopenex pending re-evaluation. CXR without evidence of pneumonia. Viral serologies pending Time: 22:30 Reevaluation #2: Significant improvement in symptoms he is requesting discharge home at this time. Viral serologies are negative. Was sent prescription for prednisone to pharmacy, he has inhaler nebulizer solution at home. He is ambulatory with a steady gait, no increased work of breathing. Discussed strict return precautions. All questions answered. Medications Administered Discontinued Medications Generic Name Dose Route Start Last Admin Trade Name Darius PRN Reason Stop Dose Admin Albuterol Sulfate 2.5 mg/ 0 mg 06/04/24 21:18 06/04/24 21:24 Albuterol/Ipratropium 3 ml INHALE 06/04/24 21:19 1 dose ONCE ONE Administration Magnesium Sulfate 2 gm in 50 mls @ 25 mls/hr 06/04/24 20:41 06/04/24 21:51 Magnesium Sulfate/H2o IV 06/04/24 22:40 Infused ONCE ONE Infusion Levalbuterol HCl 2.5 mg 06/04/24 22:44 06/04/24 22:49 Levalbuterol Hcl 1.25 Mg/3 Ml Vial.Neb INHALE 06/04/24 22:45 2.5 mg ONCE ONE Administration Methylprednisolone Sodium Succinate 125 mg 06/04/24 20:41 06/04/24 21:17 Methylprednisolone Sod Succ 125 Mg/2 Ml Vial IVPUSH 06/04/24 20:42 125 mg ONCE ONE Administration Medical Decision Making Medical Decision Making MDM Narrative: Patient is a 29-year-old male with past medical history of asthma well known to the emergency department, frequently requires multiple nebulizers IV magnesium Solu-Medrol for management. Clinically arrives consistent with his acute asthma exacerbation, reports no recent infectious symptoms and is afebrile. Plan to obtain basic labs, CXR to exclude pneumonia, will medicate with IV Solu-Medrol, IV magnesium, and albuterol nebulizer. Differential Diagnosis Differential Diagnoses: The differential diagnosis associated with the presentation includes (Asthma, URI, low suspicion for pneumonia; tachycardia likely secondary to albuterol usage rather than sepsis) Lab Data MDM Lab Attestation statement: I reviewed the patient's lab results. CBC revealing a mild leukocytosis, no anemia or thrombocytopenia. No electrolyte derangement. No RENÉE. Viral serologies ___. 06/04/24 21:15 06/04/24 21:15 Labs: Lab Results 10/22/24 10/22/24 Range/Units 21:15 22:34 WBC 12.2 H (4.8-10.8) X10*3/uL RBC 5.51 (4.60-5.80) X10*6/uL Hgb 15.1 (14.0-18.0) g/dl Hct 44.1 (42.0-52.0) % MCV 80.0 (80.0-98.0) fL MCH 27.4 (27.0-33.0) pg MCHC 34.2 (31.0-36.0) g/dl RDW 12.1 (11.0-16.0) % Plt Count 350 (160-400) X10*3/uL MPV 9.5 (9.4-12.4) fL Immature Gran % (Auto) 0.3 (0.0-0.4) % Neut % (Auto) 49.4 (45-73) % Lymph % (Auto) 30.6 (20-40) % [place] % (Auto) 8.5 (2-11) % Eos % (Auto) 9.6 H (0-4) % Baso % (Auto) 1.6 (0-2) % Lymph # (Auto) 3.7 (1.2-4.9) X10*3/uL [place] # (Auto) 1.0 (0.1-1.2) X10*3/uL Eos # (Auto) 1.2 H (0.0-0.4) X10*3/uL Baso # (Auto) 0.2 (0.0-0.2) X10*3/uL Abs Immat Gran (auto) 0.04 H (0.00-0.03) X10*3/uL Absolute Neuts (auto) 6.0 (2.0-8.3) x10*3/uL Absolute Nucleated RBC 0.000 (0.0-0.012) X10*3/uL Nucleated RBC % (auto) 0.0 (0.0-0.2) /100WBC Sodium 140 (135-145) mmol/L Potassium 4.1 (3.3-5.1) mmol/L Chloride 108 (96-108) mmol/L Carbon Dioxide 24 (22-29) mmol/L Anion Gap 12 (12-20) BUN 11 (9-16) mg/dL Creatinine 0.98 (0.5-1.4) mg/dL Estim Creat Clear Calc 132.1 Estimated GFR > 60 Random Glucose 111 (60-115) mg/dL Calcium 8.9 (8.4-10.2) mg/dL Magnesium 1.9 (1.6-2.6) mg/dL Total Bilirubin 0.4 (0.0-1.0) mg/dL AST 41 H (5-37) U/L ALT 42 H (0-40) U/L Alkaline Phosphatase 83 (39-117) U/L Total Protein 7.9 (6.5-8.0) g/dL Albumin 4.5 (3.5-5.0) g/dL Influenza Type A (PCR) NEGATIVE (Negative) Influenza Type B (PCR) NEGATIVE (Negative) RSV RNA Qual (PCR) NEGATIVE (Negative) SARS-CoV-2 RNA (RT-PCR) NEGATIVE (Negative) Independent Interpretation I performed an independent interpretation of an: Plain X-Ray (No evidence of pneumonia) Radiology Impression Discussion of test interpretation with radiology: I have reviewed the radiologist's reading. Radiologist Impression: XR/XR chest 1V IMPRESSION: Unremarkable examination. Critical Care Time Critical Care Time Critical Care Time: Yes Total Critical Care Time: 60 Attestation: I personally attest to this critical care time spent taking care of the patient exclusive of all other billable procedures was approximately 60 minutes including initial evaluation of patient, ordering tests, x-ray interpretation, repeat nebulizers, IV magnesium, documentation, re-evaluation. Discharge Plan Discharge Clinical Impression: Asthma exacerbation Patient Disposition: Home, Self-Care Instructions: Asthma (ED) Prescriptions: New prednisone 20 mg tablet 40 mg PO DAILY 5 Days Qty: 10 0RF No Action (DME) nebulizer and compressor Device See Rx Instructions .Route Qty: 1 0RF Rx Instructions: As directed (DME) nebulizers [Aeroneb Go Nebulizer[place] [facility] [place] Instructions .Route Qty: 1 0RF Rx Instructions: As directed prednisone 20 mg tablet 20 mg PO BID Qty: 10 0RF albuterol sulfate 2.5 mg /3 mL (0.083 %) solution for nebulization 2.5 mg inhalation Q6H PRN (Reason: wheezing) albuterol sulfate 90 mcg/actuation HFA aerosol inhaler 2 puff inhalation Q4-6H PRN (Reason: wheezing) fluticasone propion-salmeterol [Advair Diskus] 500-50 mcg/dose Blister With Device 1 inh INHALATION BID montelukast 10 mg Tablet 10 mg PO DAILY prednisone 20 mg tablet 20 mg PO DAILY Qty: 5 0RF Rx Instructions: Take one tablet daily for five days. prednisone 20 mg tablet 40 mg PO DAILY 5 Days Qty: 10 0RF albuterol sulfate 2.5 mg /3 mL (0.083 %) solution for nebulization 2.5 mg inhalation Q4-6H PRN (Reason: shortness of breath or wheezing) Qty: 90 0RF prednisone 20 mg tablet 40 mg PO DAILY Qty: 10 0RF albuterol sulfate [ProAir HFA] 90 mcg/actuation HFA aerosol inhaler 2 puff inhalation Q4-6H PRN (Reason: shortness of breath or wheezing) Qty: 8.5 0RF prednisone 50 mg tablet 50 mg PO DAILY 5 Days Qty: 5 0RF albuterol sulfate 2.5 mg /3 mL (0.083 %) solution for nebulization 2.5 mg inhalation Q6H Qty: 75 0RF albuterol sulfate 90 mcg/actuation aerosol powdr breath activated 2 inh inhalation Q4-6H PRN (Reason: shortness of breath or wheezing) Qty: 1 0RF prednisone 20 mg tablet 40 mg PO DAILY 5 Days Qty: 10 0RF benzonatate 200 mg capsule 200 mg PO TID PRN (Reason: cough) 5 Days Qty: 15 0RF azithromycin 250 mg tablet See Rx Instructions .ROUTE .COMPLEX Qty: 6 0RF Rx Instructions: For 250 mg dose pack: take 500 mg today (day 1), then 250 mg for 4 days (days 2-5) budesonide-formoterol [Symbicort] 160-4.5 mcg/actuation HFA aerosol inhaler 1 puff inhalation BID Qty: 10.2 0RF prednisone 50 mg tablet 50 mg PO DAILY Qty: 4 0RF Referrals: Physician,Unknown J [Primary Care Provider] - Print Language: Romanian
[2024-06-04 20:41] VITALS: BP 142/94; PULSE 105; RESP 30; TEMP 36.8; O2SAT 94; BMI 43.9
--- NOTE | 2024-06-04 20:41 | ECG_ITS ---
Test Reason : CHEST PAIN Blood Pressure : / mmHG Vent. Rate : 099 BPM Atrial Rate : 099 BPM P-R Int : 140 ms QRS Dur : 082 ms QT Int : 308 ms P-R-T Axes : 059 076 052 degrees QTc Int : 395 ms Normal sinus rhythm Normal ECG When compared with ECG of 22-JAN-2024 17:07, No significant change was found Referred By: Jaz Welch Electronically Signed By:Merlin Guzman
--- NOTE | 2024-06-04 20:47 | MHC.EDTECH ---
Called patient went to x-ray
[2024-06-04] MEDS: methylPREDNISolone Sod Succ 125 MG/2 ML VIAL IVPUSH (21:17)
[2024-06-04] MEDS: Magnesium Sulfate/H2O 2 GM/50 ML PIGGYBACK IV (21:17)
[2024-06-04 21:19] LABS: MANUAL DIFF FLAG NO
[2024-06-04 21:22] LABS: Basophils Absolute Auto 0.2 X10*3/uL (0.0-0.2); Basophils Percent Auto 1.6 % (0-2); Eosinophils Absolute Auto 1.2 X10*3/uL (0.0-0.4); Eosinophils Percent Auto 9.6 % (0-4); Hematocrit 44.1 % (42.0-52.0); Hemoglobin 15.1 g/dl (14.0-18.0); Imm Gran Abs Auto 0.04 X10*3/uL (0.00-0.03); Imm Gran Pct Auto 0.3 % (0.0-0.4); Lymphocytes Absolute Auto 3.7 X10*3/uL (1.2-4.9); Lymphocytes Percent Auto 30.6 % (20-40); Mean Corpuscular HGB Conc 34.2 g/dl (31.0-36.0); Mean Corpuscular Hemoglobin 27.4 pg (27.0-33.0); Mean Platelet Volume 9.5 fL (9.4-12.4); Monocytes Percent Auto 8.5 % (2-11); Neutrophils Percent Auto 49.4 % (45-73); Platelet Count 350 X10*3/uL (160-400); Red Blood Count 5.51 X10*6/uL (4.60-5.80); Red Cell Distribution Width 12.1 % (11.0-16.0); White Blood Count 12.2 X10*3/uL (4.8-10.8)
[2024-06-04] MEDS: Albuterol Sulfate 2.5 MG, Albuterol/Iprat 2.5/0.5MG 3 ML 3 ML INHALE (21:24)
[2024-06-04 21:25] VITALS: PULSE 90; RESP 18; O2SAT 91
[2024-06-04 21:33] LABS: Alanine Aminotransferase 42 U/L (0-40); Albumin Level 4.5 g/dL (3.5-5.0); Alkaline Phosphatase 83 U/L (39-117); Anion Gap 12 (12-20); Aspartate Amino Transferase 41 U/L (5-37); Bilirubin Total 0.4 mg/dL (0.0-1.0); Blood Urea Nitrogen 11 mg/dL (9-16); Calcium 8.9 mg/dL (8.4-10.2); Carbon Dioxide 24 mmol/L (22-29); Chloride 108 mmol/L (96-108); Creatinine Clr Calc Pharmacy 132.1; Estimated Glomerular Filt Rate > 60; Glucose Random 111 mg/dL (60-115); Magnesium 1.9 mg/dL (1.6-2.6); Potassium 4.1 mmol/L (3.3-5.1); Sodium 140 mmol/L (135-145); Total Protein 7.9 g/dL (6.5-8.0)
[2024-06-04 21:34] VITALS: BP 135/65; PULSE 101; RESP 15; TEMP 36.9; O2SAT 97
[2024-06-04 22:49] VITALS: PULSE 98; RESP 18; O2SAT 93
[2024-06-04] MEDS: levalbuterol HCL 1.25 MG/3 ML VIAL.NEB 2.5 MG INHALE (22:49)
[2024-06-05 00:08] VITALS: BP 121/69; PULSE 102; RESP 24; TEMP 36.5; O2SAT 91
--- NOTE | 2024-06-05 00:11 | MHC.EDTECH ---
This tech assumed care for patient at 2300,rounded and introduced self to patient,vitals taken,O2 sats are 91% on RA,pt stated I feel so much better after treatment ,RN made aware,patient was given a cup of ice water per request,call erickson in reach
[2024-06-05 00:20] LABS: Influenza A PCR NEGATIVE (Negative); Influenza B PCR NEGATIVE (Negative); Resp Syncy Virus RNA Qual PCR NEGATIVE (Negative); SARS COV2 PCR INHOUSE NEGATIVE (Negative)
[2024-06-05 00:50] VITALS: BP 121/69; PULSE 88; RESP 24; TEMP 36.5; O2SAT 91
== END 2024-06-05 00:53 | disposition home or self-care (01) ==
PROVIDERS: Physician Assistant Medical; Emergency Provider Emergency Medicine Emergency Medical Services
DX: J45.901 Unspecified asthma with (acute) exacerbation (principal); R07.89 Other chest pain; R06.00 Dyspnea, unspecified; R06.02 Shortness of breath; R09.89 Other specified symptoms and signs involving the circulatory and respiratory systems; Z03.818 Encounter for observation for suspected exposure to other biological agents ruled out; Z79.899 Other long term (current) drug therapy
CPT/HCPCS: 0241U; 36415; 71045; 80053; 83735; 85025; 93005; 94640; 96365; 96375; 99284; 99285; J2919; J3475

== ENCOUNTER → 2024-06-04 20:41 | Outpatient (BNV) | payer OTHER, SELFPAY | PROVIDERS: Emergency Provider Emergency Medicine Emergency Medical Services; Visit Provider Internal Medicine Cardiovascular Disease | DX: R07.9 Chest pain, unspecified (principal) | CPT/HCPCS: 93010 ==

== ENCOUNTER 2024-08-12 19:15 | Emergency (ER) | payer OTHER, SELFPAY ==
--- NOTE | ~2024-08-12 | XR_ITS ---
CLINICAL HISTORY: pain Chest Radiographs, 2 views Comparison: 01/22/24 Findings: No cardiomegaly. Normal mediastinal contours. No pneumothorax. No opacity. No pleural effusion. Normal upper abdomen. No acute fracture. Impression: No acute findings. This document has been electronically signed by: Sharron Marie MD on 08/12/2024 20:49:57
--- NOTE | 2024-08-12 19:17 | ECG_ITS ---
Test Reason : CP Blood Pressure : / mmHG Vent. Rate : 088 BPM Atrial Rate : 088 BPM P-R Int : 158 ms QRS Dur : 134 ms QT Int : 378 ms P-R-T Axes : 041 035 092 degrees QTc Int : 457 ms Normal sinus rhythm Left bundle branch block Abnormal ECG When compared with ECG of 04-JUN-2024 21:02, Left bundle branch block is now Present Referred By: Mason Figueroa Electronically Signed By:HUSEYIN DORANTES MD
[2024-08-12 19:29] VITALS: BP 129/79; PULSE 86; RESP 22; TEMP 36.6; O2SAT 96; BMI 42.9
--- NOTE | 2024-08-12 19:29 | ED_ITS ---
HPI - General Adult General Chief complaint: Chest Pain Stated complaint: chest pain Time Seen by Provider: 08/12/24 20:53 History of Present Illness ED Provider: Kaila NORMAN narrative: The patient is a 29-year-old male with a history of asthma. He says that about 45 minutes prior to coming to the emergency room he developed chest pain in his mid chest that was associated with some mild shortness of breath. He says that he noticed this when he was trying to fall asleep. He says every time he tries to fell asleep he feels the pain more. He came to the emergency room because of this pain. No fever, sweats, chills. No cough or sputum. No abdominal pain. No nausea or vomiting. He denies any pain or swelling in his legs. He says he has never had pain like this before. Related Data Home Medications ?Medication ?Instructions ?Recorded ?Confirmed albuterol sulfate 2.5 mg/3 mL 2.5 mg inhalation Q6H PRN wheezing 10/08/23 10/08/23 (0.083 %) solution for nebulization albuterol sulfate 90 mcg/actuation 2 puff inhalation Q4-6H PRN 10/08/23 10/08/23 aerosol inhaler wheezing fluticasone 500 mcg-salmeterol 50 1 inh inhalation BID 10/08/23 10/08/23 mcg/dose blistr powdr for inhalation (Advair Diskus) montelukast 10 mg tablet 10 mg PO DAILY 10/08/23 10/08/23 Previous Rx's ?Medication ?Instructions ?Recorded nebulizer and compressor #1 ea 09/15/21 nebulizers (Aeroneb Go Nebulizer) #1 ea 04/18/22 prednisone 20 mg tablet 20 mg PO DAILY #5 tabs 10/08/23 prednisone 20 mg tablet 40 mg (2 x 20 mg) PO DAILY 5 days 11/13/23 #10 tabs albuterol sulfate 2.5 mg/3 mL 2.5 mg (3 mL) inhalation Q4-6H PRN 11/26/23 (0.083 %) solution for nebulization shortness of breath or wheezing #90 mL albuterol sulfate 90 mcg/actuation 2 puff inhalation Q4-6H PRN 11/26/23 aerosol inhaler (ProAir HFA) shortness of breath or wheezing #8.5 grams prednisone 20 mg tablet 40 mg (2 x 20 mg) PO DAILY #10 tabs 11/26/23 albuterol sulfate 2.5 mg/3 mL 2.5 mg (3 mL) inhalation Q6H #75 mL 12/07/23 (0.083 %) solution for nebulization albuterol sulfate 90 mcg/actuation 2 inh inhalation Q4-6H PRN 12/07/23 breath activated powder inhaler shortness of breath or wheezing #1 ea prednisone 50 mg tablet 50 mg PO DAILY 5 days #5 tabs 12/07/23 azithromycin 250 mg tablet See Rx Instructions PO .COMPLEX #6 12/13/23 tabs benzonatate 200 mg capsule 200 mg PO TID PRN cough 5 days #15 12/13/23 caps prednisone 20 mg tablet 40 mg (2 x 20 mg) PO DAILY 5 days 12/13/23 #10 tabs prednisone 20 mg tablet 20 mg PO BID #10 tabs 12/23/23 budesonide-formoterol HFA 160 1 puff inhalation BID #10.2 grams 01/22/24 mcg-4.5 mcg/actuation aerosol inhaler (Symbicort) prednisone 50 mg tablet 50 mg PO DAILY #4 tabs 01/22/24 prednisone 20 mg tablet 40 mg (2 x 20 mg) PO DAILY 5 days 06/05/24 #10 tabs Allergies Allergy/AdvReac Type Severity Reaction Status Date / Time shellfish derived Allergy Severe SHORTNESS Verified 08/12/24 19:32 OF BREATH, SWELLING shrimp Allergy Severe ANAPHYLAXIS Verified 08/12/24 19:32 PMFSH Past Medical History Medical History Asthma Pneumonia due to 2019 novel coronavirus Asthma Family History Family History Mother Asthma Social History Social History Household Members: None Housing: House Do you presently have visiting nurse or other home services: No Alcohol intake: never Patient Tobacco Use Status: Never used Tobacco Smoked in Last 30 Days: No Use of substances other than those prescribed or required for medical reasons: No Advance Directives: No Advance Directives Information Provided: No Do you have a plan to hurt others: No Plan service: No Current occupational status: unemployed Physical Exam ED Vital Signs: Vital Signs - 24 hr 08/12/24 19:29 08/12/24 21:47 08/12/24 23:03 Temperature 97.8 F 98.4 F 98.4 F Pulse Rate 86 84 84 Respiratory Rate 22 H 18 18 Blood Pressure 129/79 130/84 130/84 Pulse Oximetry 96 94 94 Oxygen Delivery Method Room Air Room Air Room Air BMI result Body Mass Index 42.9 Const Other: The patient is an obese male, BMI 42.9, who seems fatigued but arouses easily to verbal stimuli and seems appropriate when awake. He does not appear in any distress. HENMT Other: Face is symmetrical. Mucous membranes moist. Eyes Other: Pupils are round equal, conjunctivae are clear, extraocular movements intact Neck Neck: Yes full ROM Chest Other: No obvious chest wall tenderness Resp Other: No wheezing Effort & Inspection: normal respiratory effort Auscultation: clear to auscultation bilaterally Cardio Rate: regular rate Rhythm: regular rhythm Heart sounds: S1 normal heart sound present and S2 normal heart sound present GI Other: Abdomen is soft and nontender Skin Other: Skin is dry and unremarkable Neuro Other: The patient seems sleepy but otherwise has a normal mental status. Cranial nerves are grossly intact. He moves his extremities normally. He seems neurologically intact. Extrem Other: No peripheral edema. No calf swelling or tenderness. No asymmetry. Course Course Course Narrative: RME, this is a rapid medical exam performed by Bhaskar Figueroa please refer to primary provider for complete H&P- 29-year-old male presents for evaluation of 45 minutes of chest pain. He had an EKG ordered on arrival which shows a new left bundle when compared to 2 months ago. Plan for labs and he will be brought back to ED room 14 Medical Decision Making Medical Decision Making MDM Narrative: The patient is a 29-year-old male with a history of asthma. He has a history of a very large number of emergency room visits, primarily related to his asthma. Remarkably, given how many emergency room visits he has had, he does not have a primary care doctor. He presents today with chest pain that he says does not feel like his asthma. Surprisingly the patient has a new right bundle branch block on his EKG today. The patient does not really seem to describe pain that sounds like an acute coronary syndrome. He is very vague in his description of the pain. He does not appear ill. Although his EKG shows a new left bundle branch block there are no changes which are strongly suggestive of ischemia. The patient did not appear uncomfortable it did not seem to need treatment for his discomfort. He seemed tired and was sleeping a lot. When aroused he had a normal mental status and did not seem uncomfortable. He has an unremarkable chest x-ray. His troponins are undetectable. D-dimer was also undetectable. The patient was reassured. He was strongly encouraged to get a primary care doctor. He has [employer]. He should contact [employer] for assistance with getting a primary care provider. Lab Data 08/12/24 19:44 08/12/24 19:44 Labs: Lab Results 08/12/24 08/12/24 Range/Units 19:44 21:42 WBC 11.2 H (4.8-10.8) X10*3/uL RBC 5.14 (4.60-5.80) X10*6/uL Hgb 14.4 (14.0-18.0) g/dl Hct 40.6 L (42.0-52.0) % MCV 79.0 L (80.0-98.0) fL MCH 28.0 (27.0-33.0) pg MCHC 35.5 (31.0-36.0) g/dl RDW 11.9 (11.0-16.0) % Plt Count 367 (160-400) X10*3/uL MPV 9.3 L (9.4-12.4) fL Immature Gran % (Auto) 0.5 H (0.0-0.4) % Neut % (Auto) 51.1 (45-73) % Lymph % (Auto) 32.4 (20-40) % [place] % (Auto) 7.9 (2-11) % Eos % (Auto) 6.8 H (0-4) % Baso % (Auto) 1.3 (0-2) % Lymph # (Auto) 3.6 (1.2-4.9) X10*3/uL [place] # (Auto) 0.9 (0.1-1.2) X10*3/uL Eos # (Auto) 0.8 H (0.0-0.4) X10*3/uL Baso # (Auto) 0.2 (0.0-0.2) X10*3/uL Abs Immat Gran (auto) 0.06 H (0.00-0.03) X10*3/uL Absolute Neuts (auto) 5.7 (2.0-8.3) x10*3/uL Absolute Nucleated RBC 0.000 (0.0-0.012) X10*3/uL Nucleated RBC % (auto) 0.0 (0.0-0.2) /100WBC PT 12.4 (10.9-12.4) SEC INR 1.1 (0.9-1.1) D-Dimer High Sensitivty < 150 NG/ML Sodium 139 (135-145) mmol/L Potassium 3.9 (3.3-5.1) mmol/L Chloride 110 H (96-108) mmol/L Carbon Dioxide 21 L (22-29) mmol/L Anion Gap 12 (12-20) BUN 10 (9-16) mg/dL Creatinine 0.89 (0.5-1.4) mg/dL Estim Creat Clear Calc 143.6 Estimated GFR > 60 Random Glucose 149 H (60-115) mg/dL Calcium 8.5 (8.4-10.2) mg/dL Total Bilirubin 0.4 (0.0-1.0) mg/dL AST 34 (5-37) U/L ALT 42 H (0-40) U/L Alkaline Phosphatase 75 (39-117) U/L Troponin I High Sens < 2.7 < 2.7 (<3.5-35.0) ng/L Total Protein 7.5 (6.5-8.0) g/dL Albumin 4.1 (3.5-5.0) g/dL Lipase 30 (8-78) U/L Influenza Type A (PCR) NEGATIVE (Negative) Influenza Type B (PCR) NEGATIVE (Negative) RSV RNA Qual (PCR) NEGATIVE (Negative) SARS-CoV-2 RNA (RT-PCR) NEGATIVE (Negative) Discharge Plan Discharge Clinical Impression: Chest pain, Left bundle branch block Patient Disposition: Home, Self-Care Additional Instructions: Your testing in the emergency room today does not show any dangerous process. Your EKG shows a new finding today, you have a left bundle branch block on your EKG. However your blood testing is very reassuring and this finding in your EKG does not indicate any acutely dangerous process. The reason for your chest pain is not clear but there does not seem to be any acutely dangerous process. Do not seem to be having a heart attack. You do not have a blood clot in your lungs. You do not have pneumonia. Please continue your usual asthma treatments. Most importantly please work on getting a primary care doctor. If you want to establish the [facility] as your primary care please go there tomorrow and get on a waiting list. Return to the emergency room if worse. Prescriptions: No Action (DME) nebulizer and compressor Device See Rx Instructions .Route Qty: 1 0RF Rx Instructions: As directed (DME) nebulizers [Aeroneb Go Nebulizer] Misc See Rx Instructions .Route Qty: 1 0RF Rx Instructions: As directed prednisone 20 mg tablet 20 mg PO BID Qty: 10 0RF albuterol sulfate 2.5 mg /3 mL (0.083 %) solution for nebulization 2.5 mg inhalation Q6H PRN (Reason: wheezing) albuterol sulfate 90 mcg/actuation HFA aerosol inhaler 2 puff inhalation Q4-6H PRN (Reason: wheezing) fluticasone propion-salmeterol [Advair Diskus] 500-50 mcg/dose Blister With Device 1 inh INHALATION BID montelukast 10 mg Tablet 10 mg PO DAILY prednisone 20 mg tablet 20 mg PO DAILY Qty: 5 0RF Rx Instructions: Take one tablet daily for five days. prednisone 20 mg tablet 40 mg PO DAILY 5 Days Qty: 10 0RF albuterol sulfate 2.5 mg /3 mL (0.083 %) solution for nebulization 2.5 mg inhalation Q4-6H PRN (Reason: shortness of breath or wheezing) Qty: 90 0RF prednisone 20 mg tablet 40 mg PO DAILY Qty: 10 0RF albuterol sulfate [ProAir HFA] 90 mcg/actuation HFA aerosol inhaler 2 puff inhalation Q4-6H PRN (Reason: shortness of breath or wheezing) Qty: 8.5 0RF prednisone 50 mg tablet 50 mg PO DAILY 5 Days Qty: 5 0RF albuterol sulfate 2.5 mg /3 mL (0.083 %) solution for nebulization 2.5 mg inhalation Q6H Qty: 75 0RF albuterol sulfate 90 mcg/actuation aerosol powdr breath activated 2 inh inhalation Q4-6H PRN (Reason: shortness of breath or wheezing) Qty: 1 0RF prednisone 20 mg tablet 40 mg PO DAILY 5 Days Qty: 10 0RF benzonatate 200 mg capsule 200 mg PO TID PRN (Reason: cough) 5 Days Qty: 15 0RF azithromycin 250 mg tablet See Rx Instructions .ROUTE .COMPLEX Qty: 6 0RF Rx Instructions: For 250 mg dose pack: take 500 mg today (day 1), then 250 mg for 4 days (days 2-5) budesonide-formoterol [Symbicort] 160-4.5 mcg/actuation HFA aerosol inhaler 1 puff inhalation BID Qty: 10.2 0RF prednisone 50 mg tablet 50 mg PO DAILY Qty: 4 0RF prednisone 20 mg tablet 40 mg PO DAILY 5 Days Qty: 10 0RF Referrals: [facility] [Provider Group] (Needs new primary care, asthma, left bundle branch block) Interventions: ED Discharge Assessment Last Done: 08/12/24 23:03 Discharge Date/Time: 08/12/24 23:06 Print Language: [place]
[2024-08-12 19:50] VITALS: PULSE 88
[2024-08-12 19:53] LABS: MANUAL DIFF FLAG NO
[2024-08-12 19:54] LABS: Basophils Absolute Auto 0.2 X10*3/uL (0.0-0.2); Basophils Percent Auto 1.3 % (0-2); Eosinophils Absolute Auto 0.8 X10*3/uL (0.0-0.4); Eosinophils Percent Auto 6.8 % (0-4); Hematocrit 40.6 % (42.0-52.0); Hemoglobin 14.4 g/dl (14.0-18.0); Imm Gran Abs Auto 0.06 X10*3/uL (0.00-0.03); Imm Gran Pct Auto 0.5 % (0.0-0.4); Lymphocytes Absolute Auto 3.6 X10*3/uL (1.2-4.9); Lymphocytes Percent Auto 32.4 % (20-40); Mean Corpuscular HGB Conc 35.5 g/dl (31.0-36.0); Mean Platelet Volume 9.3 fL (9.4-12.4); Monocytes Absolute Auto 0.9 X10*3/uL (0.1-1.2); Monocytes Percent Auto 7.9 % (2-11); Neutrophils Absolute Auto 5.7 x10*3/uL (2.0-8.3); Neutrophils Percent Auto 51.1 % (45-73); Platelet Count 367 X10*3/uL (160-400); Red Blood Count 5.14 X10*6/uL (4.60-5.80); Red Cell Distribution Width 11.9 % (11.0-16.0); White Blood Count 11.2 X10*3/uL (4.8-10.8)
[2024-08-12 19:59] LABS: INTERNATIONAL NORM RATIO 1.1 (0.9-1.1); Prothrombin Time 12.4 SEC (10.9-12.4)
[2024-08-12 20:08] LABS: Alanine Aminotransferase 42 U/L (0-40); Albumin Level 4.1 g/dL (3.5-5.0); Alkaline Phosphatase 75 U/L (39-117); Anion Gap 12 (12-20); Aspartate Amino Transferase 34 U/L (5-37); Bilirubin Total 0.4 mg/dL (0.0-1.0); Blood Urea Nitrogen 10 mg/dL (9-16); Calcium 8.5 mg/dL (8.4-10.2); Carbon Dioxide 21 mmol/L (22-29); Chloride 110 mmol/L (96-108); Creatinine Clr Calc Pharmacy 143.6; Estimated Glomerular Filt Rate > 60; Glucose Random 149 mg/dL (60-115); Lipase 30 U/L (8-78); Potassium 3.9 mmol/L (3.3-5.1); Sodium 139 mmol/L (135-145); Total Protein 7.5 g/dL (6.5-8.0)
[2024-08-12 20:27] LABS: Troponin-I High Sensitivity < 2.7 ng/L (<3.5-35.0)
[2024-08-12 20:31] LABS: Influenza A PCR NEGATIVE (Negative); Influenza B PCR NEGATIVE (Negative); Resp Syncy Virus RNA Qual PCR NEGATIVE (Negative); SARS COV2 PCR INHOUSE NEGATIVE (Negative)
[2024-08-12 21:27] LABS: D Dimer High Sensitivity < 150 NG/ML
[2024-08-12 21:47] VITALS: BP 130/84; PULSE 84; RESP 18; TEMP 36.9; O2SAT 94
[2024-08-12 22:11] LABS: Troponin-I High Sensitivity < 2.7 ng/L (<3.5-35.0)
--- NOTE | 2024-08-12 22:28 | ECG_ITS ---
Test Reason : repeat Blood Pressure : / mmHG Vent. Rate : 080 BPM Atrial Rate : 080 BPM P-R Int : 164 ms QRS Dur : 134 ms QT Int : 394 ms P-R-T Axes : 035 025 082 degrees QTc Int : 454 ms Normal sinus rhythm Left bundle branch block Abnormal ECG When compared with ECG of 12-AUG-2024 19:21, No significant change was found Referred By: Artemio Bright Electronically Signed By:HUSEYIN DORANTES MD
[2024-08-12 23:03] VITALS: BP 130/84; PULSE 84; RESP 18; TEMP 36.9; O2SAT 94
== END 2024-08-12 23:06 | disposition home or self-care (01) ==
PROVIDERS: Physician Assistant; Emergency Provider Emergency Medicine
DX: I44.7 Left bundle-branch block, unspecified (principal); R07.9 Chest pain, unspecified; Z03.818 Encounter for observation for suspected exposure to other biological agents ruled out; Z79.899 Other long term (current) drug therapy
CPT/HCPCS: 0241U; 36415; 71046; 80053; 83690; 84484; 85025; 85379; 85610; 93005; 99284; 99285

== ENCOUNTER → 2024-08-12 19:17 | Outpatient (BNV) | payer OTHER, SELFPAY | PROVIDERS: Emergency Provider Emergency Medicine; Visit Provider Internal Medicine Cardiovascular Disease | DX: R94.31 Abnormal electrocardiogram [ECG] [EKG] (principal) | CPT/HCPCS: 93010 ==

== ENCOUNTER → 2024-08-12 19:31 | Outpatient (BNV) | payer OTHER, SELFPAY | PROVIDERS: Emergency Provider Emergency Medicine; Visit Provider Radiology Diagnostic Radiology | DX: R07.9 Chest pain, unspecified (principal) | CPT/HCPCS: 71046 ==

== ENCOUNTER 2024-08-21 17:44 | Emergency (ER) | payer OTHER, SELFPAY ==
--- NOTE | 2024-08-21 | ECG_ITS ---
Test Reason : CHEST PAIN Blood Pressure : */* mmHG Vent. Rate : 88 BPM Atrial Rate : 88 BPM P-R Int : 164 ms QRS Dur : 136 ms QT Int : 370 ms P-R-T Axes : 44 15 79 degrees QTcB Int : 447 ms Normal sinus rhythm Left bundle branch block Abnormal ECG When compared with ECG of 12-Aug-2024 22:33, No significant change was found Referred By: Generic ED Physician Electronically Signed By: ERIKA VILLARREAL
--- NOTE | ~2024-08-21 | XR_ITS ---
CLINICAL HISTORY: cp Chest Radiographs, 2 views Comparison: 08/12/24 Findings: No cardiomegaly. Normal mediastinal contours. No pneumothorax. No opacity. No pleural effusion. Normal upper abdomen. No acute fracture. Impression: No acute findings. This document has been electronically signed by: Sharron Marie MD on 08/21/2024 18:54:29
[2024-08-21 18:06] VITALS: BP 154/93; PULSE 96; RESP 16; TEMP 37.1; O2SAT 97; BMI 43.2
--- NOTE | 2024-08-21 18:07 | ED_ITS ---
HPI - Chest Pain General Chief Complaint: Chest Pain Stated Complaint: Chest Pains Time Seen by Provider: 08/21/24 23:31 Source: patient Mode of arrival: ambulatory Limitations: no limitations History of Present Illness ED Provider: DR. Lee HPI narrative: 29-year-old male with significant history of asthma, anxiety, patient get anxious and had panic attack when he started to have a mid chest pain with no radiation. Started earlier today while patient was at rest, pain lasted for 30 minutes now patient is chest pain-free, no shortness of breath, no fever, chills, no coughing, no chest trauma, no recent travel, no lower extremity swelling or tenderness. Related Data Home Medications ?Medication ?Instructions ?Recorded ?Confirmed albuterol sulfate 2.5 mg/3 mL 2.5 mg inhalation Q6H PRN wheezing 10/08/23 10/08/23 (0.083 %) solution for nebulization albuterol sulfate 90 mcg/actuation 2 puff inhalation Q4-6H PRN 10/08/23 10/08/23 aerosol inhaler wheezing fluticasone 500 mcg-salmeterol 50 1 inh inhalation BID 10/08/23 10/08/23 mcg/dose blistr powdr for inhalation (Advair Diskus) montelukast 10 mg tablet 10 mg PO DAILY 10/08/23 10/08/23 Previous Rx's ?Medication ?Instructions ?Recorded nebulizer and compressor #1 ea 09/15/21 nebulizers (Aeroneb Go Nebulizer) #1 ea 04/18/22 prednisone 20 mg tablet 20 mg PO DAILY #5 tabs 10/08/23 prednisone 20 mg tablet 40 mg (2 x 20 mg) PO DAILY 5 days 11/13/23 #10 tabs albuterol sulfate 2.5 mg/3 mL 2.5 mg (3 mL) inhalation Q4-6H PRN 11/26/23 (0.083 %) solution for nebulization shortness of breath or wheezing #90 mL albuterol sulfate 90 mcg/actuation 2 puff inhalation Q4-6H PRN 11/26/23 aerosol inhaler (ProAir HFA) shortness of breath or wheezing #8.5 grams prednisone 20 mg tablet 40 mg (2 x 20 mg) PO DAILY #10 tabs 11/26/23 albuterol sulfate 2.5 mg/3 mL 2.5 mg (3 mL) inhalation Q6H #75 mL 12/07/23 (0.083 %) solution for nebulization albuterol sulfate 90 mcg/actuation 2 inh inhalation Q4-6H PRN 12/07/23 breath activated powder inhaler shortness of breath or wheezing #1 ea prednisone 50 mg tablet 50 mg PO DAILY 5 days #5 tabs 12/07/23 azithromycin 250 mg tablet See Rx Instructions PO .COMPLEX #6 12/13/23 tabs benzonatate 200 mg capsule 200 mg PO TID PRN cough 5 days #15 12/13/23 caps prednisone 20 mg tablet 40 mg (2 x 20 mg) PO DAILY 5 days 12/13/23 #10 tabs prednisone 20 mg tablet 20 mg PO BID #10 tabs 12/23/23 budesonide-formoterol HFA 160 1 puff inhalation BID #10.2 grams 01/22/24 mcg-4.5 mcg/actuation aerosol inhaler (Symbicort) prednisone 50 mg tablet 50 mg PO DAILY #4 tabs 01/22/24 prednisone 20 mg tablet 40 mg (2 x 20 mg) PO DAILY 5 days 06/05/24 #10 tabs Allergies Allergy/AdvReac Type Severity Reaction Status Date / Time shellfish derived Allergy Severe SHORTNESS Verified 08/21/24 18:08 OF BREATH, SWELLING shrimp Allergy Severe ANAPHYLAXIS Verified 08/21/24 18:08 Review of Systems 2 Review of Systems: All other systems are reviewed and are negative Constitutional: Reports as per HPI and Reports no additional constitutional complaints Eyes: Reports as per HPI and Reports no additional eye complaints Reports system reviewed and no additional complaints, except as documented Cardiovascular: Reports as per HPI and Reports no additional cardiovascular complaints Respiratory: Reports as per HPI and Reports no additional respiratory complaints Gastrointestinal: Reports as per HPI and Reports no additional gastrointestinal complaints Genitourinary: Reports no additional female genitourinary complaints Musculoskeletal: Reports no additional musculoskeletal complaints Skin/Breast: Reports system reviewed and no additional complaints, except as docu Psychiatric: Reports no additional psychiatric complaints Endocrine: Reports no additional endocrine complaints Hematologic/Lymphatic: Reports no additional hematologic/lymphatic complaints Allergic/Immunologic: Reports no additional allergic/immunologic complaints Reports system reviewed and no additional complaints, except as documented and Reports Abnormal speech present [facility] Past Medical History Medical History Asthma Pneumonia due to 2019 novel coronavirus Asthma Family History Family History Mother Asthma Social History Social History Household Members: None Housing: House Do you presently have visiting nurse or other home services: No Alcohol intake: never Patient Tobacco Use Status: Never used Tobacco Advance Directives: No Advance Directives Information Provided: No Do you have a plan to hurt others: No Plan service: No Current occupational status: unemployed Physical Exam 2 Vital Signs: Vital Signs: Last Vital Signs Temp 97.8 F 08/21/24 23:13 Pulse 83 08/21/24 23:13 Resp 13 08/21/24 23:13 BP 139/77 08/21/24 23:13 Pulse Ox 97 08/21/24 23:13 O2 Del Method Room Air 08/21/24 23:13 BMI result Body Mass Index 43.2 Vital signs have been reviewed and appear to be correct. Blood pressure elevated. Heart rate normal. Respiratory rate normal. Temperature normal. Oxygen saturation normal. Appearance: Alert. Oriented X3. No acute distress. Head: Normal external exam. Normocephalic. Atraumatic. No Lindsey signs noted. No raccoon eyes noted Eyes: PERRLA. EOMI. Conjunctiva and sclera normal. Eyelids normal. ENT: TM's Normal. Pharynx normal. Uvula midline. Moist mucous membranes. No trismus noted. No drooling noted. No muffled voice noted. Neck: Normal inspection. Neck supple. FROM. No adenopathy. Thyroid Normal. No meningeal signs. No neck mass noted. CVS: Normal heart rate and rhythm. Heart sound normal. No murmurs noted. Pulses normal throughout. Respiratory: No respiratory distress. Painless inspiration. Breath sounds normal. No wheezes/rales/rhonchi noted. Chest nontender. No accessory muscle usage noted or decreased air movement noted. Abdomen: Soft and nontender. Bowel sounds normal in all 4 quadrants. No distention noted. No organomegaly noted. No visible injury noted. Back: No CVA tenderness. Full range of motion noted. Skin: Skin warm and dry. Normal skin color. Normal skin turgor. No rashes/lesions/lacerations noted. Extremities: No lower extremity edema. Extremities exhibit normal range of motion. Extremities nontender. Neuro: Oriented X 3. Cranial nerve exam: II-XII are grossly intact No motor deficit. No sensory deficit. Reflexes normal. Course Course Course Narrative: This is a Rapid Medical Exam performed in triage by Lillian Machado PA-C. Full HPI, ROS and PE to be performed by primary ED provider. 29yo F w/PMHx asthma, presenting to the ED c/o midstenal chest pain x30 mins that began at rest, pain intermittent at present. denies SOB, cough, N/V PE: diminished lung sounds throughout, nontoxic appearing Plan: EKG, labs, CXR Reevaluation(s) Reevaluation #1: 29-year-old male with history of asthma presented with mid chest pain with no radiation, EKG/troponin x2 is negative, patient now has no chest pain or shortness of breath, VSS. Time: 23:39 Medical Decision Making Differential Diagnosis Differential Diagnoses: The differential diagnosis associated with the presentation includes (ACS, asthma, pneumonia, pneumothorax, pleural effusion, severe anemia, electrolyte derangement.) Admission/Observation Consideration of admission/observation: Escalation of care including admission/observation considered Lab Data MDM Lab Attestation statement: I reviewed the patient's lab results. 08/21/24 18:30 08/21/24 18:30 Labs: Lab Results 08/21/24 08/21/24 Range/Units 18:30 21:24 WBC 11.2 H (4.8-10.8) X10*3/uL RBC 5.35 (4.60-5.80) X10*6/uL Hgb 14.9 (14.0-18.0) g/dl Hct 42.0 (42.0-52.0) % MCV 78.5 L (80.0-98.0) fL MCH 27.9 (27.0-33.0) pg MCHC 35.5 (31.0-36.0) g/dl RDW 11.9 (11.0-16.0) % Plt Count 379 (160-400) X10*3/uL MPV 9.6 (9.4-12.4) fL Immature Gran % (Auto) 0.8 H (0.0-0.4) % Neut % (Auto) 51.3 (45-73) % Lymph % (Auto) 33.1 (20-40) % Humphreys % (Auto) 7.1 (2-11) % Eos % (Auto) 6.3 H (0-4) % Baso % (Auto) 1.4 (0-2) % Lymph # (Auto) 3.7 (1.2-4.9) X10*3/uL Humphreys # (Auto) 0.8 (0.1-1.2) X10*3/uL Eos # (Auto) 0.7 H (0.0-0.4) X10*3/uL Baso # (Auto) 0.2 (0.0-0.2) X10*3/uL Abs Immat Gran (auto) 0.09 H (0.00-0.03) X10*3/uL Absolute Neuts (auto) 5.8 (2.0-8.3) x10*3/uL Absolute Nucleated RBC 0.000 (0.0-0.012) X10*3/uL Nucleated RBC % (auto) 0.0 (0.0-0.2) /100WBC Sodium 139 (135-145) mmol/L Potassium 3.8 (3.3-5.1) mmol/L Chloride 108 (96-108) mmol/L Carbon Dioxide 21 L (22-29) mmol/L Anion Gap 14 (12-20) BUN 8 L (9-16) mg/dL Creatinine 0.76 (0.5-1.4) mg/dL Estim Creat Clear Calc 168.8 Estimated GFR > 60 Random Glucose 158 H (60-115) mg/dL Calcium 8.7 (8.4-10.2) mg/dL Magnesium 2.0 (1.6-2.6) mg/dL Total Bilirubin 0.3 (0.0-1.0) mg/dL Direct Bilirubin 0.1 (0.0-0.5) mg/dL AST 32 (5-37) U/L ALT 43 H (0-40) U/L Alkaline Phosphatase 82 (39-117) U/L Troponin I High Sens < 2.7 < 2.7 (<3.5-35.0) ng/L Total Protein 7.7 (6.5-8.0) g/dL Albumin 4.2 (3.5-5.0) g/dL Influenza Type A (PCR) NEGATIVE (Negative) Influenza Type B (PCR) NEGATIVE (Negative) RSV RNA Qual (PCR) NEGATIVE (Negative) SARS-CoV-2 RNA (RT-PCR) NEGATIVE (Negative) Independent Interpretation I performed an independent interpretation of an: EKG (Normal sinus rhythm, LBBB, no change from previous EKG.) and Plain X-Ray (Chest: No acute findings.) Radiology Impression Discussion of test interpretation with radiology: I have reviewed the radiologist's reading. Discharge Plan Discharge Clinical Impression: Chest pain Patient Disposition: Home, Self-Care Instructions: Chest Pain (ED) Prescriptions: No Action (DME) nebulizer and compressor Device See Rx Instructions .Route Qty: 1 0RF Rx Instructions: As directed (DME) nebulizers [Aeroneb Go Nebulizer] Misc See Rx Instructions .Route Qty: 1 0RF Rx Instructions: As directed prednisone 20 mg tablet 20 mg PO BID Qty: 10 0RF albuterol sulfate 2.5 mg /3 mL (0.083 %) solution for nebulization 2.5 mg inhalation Q6H PRN (Reason: wheezing) albuterol sulfate 90 mcg/actuation HFA aerosol inhaler 2 puff inhalation Q4-6H PRN (Reason: wheezing) fluticasone propion-salmeterol [Advair Diskus] 500-50 mcg/dose Blister With Device 1 inh INHALATION BID montelukast 10 mg Tablet 10 mg PO DAILY prednisone 20 mg tablet 20 mg PO DAILY Qty: 5 0RF Rx Instructions: Take one tablet daily for five days. prednisone 20 mg tablet 40 mg PO DAILY 5 Days Qty: 10 0RF albuterol sulfate 2.5 mg /3 mL (0.083 %) solution for nebulization 2.5 mg inhalation Q4-6H PRN (Reason: shortness of breath or wheezing) Qty: 90 0RF prednisone 20 mg tablet 40 mg PO DAILY Qty: 10 0RF albuterol sulfate [ProAir HFA] 90 mcg/actuation HFA aerosol inhaler 2 puff inhalation Q4-6H PRN (Reason: shortness of breath or wheezing) Qty: 8.5 0RF prednisone 50 mg tablet 50 mg PO DAILY 5 Days Qty: 5 0RF albuterol sulfate 2.5 mg /3 mL (0.083 %) solution for nebulization 2.5 mg inhalation Q6H Qty: 75 0RF albuterol sulfate 90 mcg/actuation aerosol powdr breath activated 2 inh inhalation Q4-6H PRN (Reason: shortness of breath or wheezing) Qty: 1 0RF prednisone 20 mg tablet 40 mg PO DAILY 5 Days Qty: 10 0RF benzonatate 200 mg capsule 200 mg PO TID PRN (Reason: cough) 5 Days Qty: 15 0RF azithromycin 250 mg tablet See Rx Instructions .ROUTE .COMPLEX Qty: 6 0RF Rx Instructions: For 250 mg dose pack: take 500 mg today (day 1), then 250 mg for 4 days (days 2-5) budesonide-formoterol [Symbicort] 160-4.5 mcg/actuation HFA aerosol inhaler 1 puff inhalation BID Qty: 10.2 0RF prednisone 50 mg tablet 50 mg PO DAILY Qty: 4 0RF prednisone 20 mg tablet 40 mg PO DAILY 5 Days Qty: 10 0RF Print Language: Maltese
[2024-08-21 18:35] LABS: MANUAL DIFF FLAG NO
[2024-08-21 18:53] LABS: Alanine Aminotransferase 43 U/L (0-40); Albumin Level 4.2 g/dL (3.5-5.0); Alkaline Phosphatase 82 U/L (39-117); Anion Gap 14 (12-20); Aspartate Amino Transferase 32 U/L (5-37); Bilirubin Direct 0.1 mg/dL (0.0-0.5); Bilirubin Total 0.3 mg/dL (0.0-1.0); Blood Urea Nitrogen 8 mg/dL (9-16); Calcium 8.7 mg/dL (8.4-10.2); Carbon Dioxide 21 mmol/L (22-29); Chloride 108 mmol/L (96-108); Creatinine Clr Calc Pharmacy 168.8; Estimated Glomerular Filt Rate > 60; Glucose Random 158 mg/dL (60-115); Potassium 3.8 mmol/L (3.3-5.1); Sodium 139 mmol/L (135-145); Total Protein 7.7 g/dL (6.5-8.0)
[2024-08-21 19:00] LABS: Troponin-I High Sensitivity < 2.7 ng/L (<3.5-35.0)
[2024-08-21 19:01] LABS: Basophils Absolute Auto 0.2 X10*3/uL (0.0-0.2); Basophils Percent Auto 1.4 % (0-2); Eosinophils Absolute Auto 0.7 X10*3/uL (0.0-0.4); Eosinophils Percent Auto 6.3 % (0-4); Hemoglobin 14.9 g/dl (14.0-18.0); Imm Gran Abs Auto 0.09 X10*3/uL (0.00-0.03); Imm Gran Pct Auto 0.8 % (0.0-0.4); Lymphocytes Absolute Auto 3.7 X10*3/uL (1.2-4.9); Lymphocytes Percent Auto 33.1 % (20-40); Mean Corpuscular HGB Conc 35.5 g/dl (31.0-36.0); Mean Corpuscular Hemoglobin 27.9 pg (27.0-33.0); Mean Corpuscular Volume 78.5 fL (80.0-98.0); Mean Platelet Volume 9.6 fL (9.4-12.4); Monocytes Absolute Auto 0.8 X10*3/uL (0.1-1.2); Monocytes Percent Auto 7.1 % (2-11); Neutrophils Absolute Auto 5.8 x10*3/uL (2.0-8.3); Neutrophils Percent Auto 51.3 % (45-73); Platelet Count 379 X10*3/uL (160-400); Red Blood Count 5.35 X10*6/uL (4.60-5.80); Red Cell Distribution Width 11.9 % (11.0-16.0); White Blood Count 11.2 X10*3/uL (4.8-10.8)
[2024-08-21 19:19] LABS: Influenza A PCR NEGATIVE (Negative); Influenza B PCR NEGATIVE (Negative); Resp Syncy Virus RNA Qual PCR NEGATIVE (Negative); SARS COV2 PCR INHOUSE NEGATIVE (Negative)
[2024-08-21 21:50] LABS: Troponin-I High Sensitivity < 2.7 ng/L (<3.5-35.0)
[2024-08-21 22:45] VITALS: BP 137/86; PULSE 73; RESP 18; TEMP 36.6; O2SAT 96
[2024-08-21 23:13] VITALS: BP 139/77; PULSE 83; RESP 13; TEMP 36.6; O2SAT 97
[2024-08-21 23:53] VITALS: BP 139/77; PULSE 83; RESP 13; TEMP 36.6; O2SAT 97
== END 2024-08-21 23:54 | disposition home or self-care (01) ==
PROVIDERS: Physician Assistant; Emergency Provider Emergency Medicine
DX: R07.89 Other chest pain (principal); F41.0 Panic disorder [episodic paroxysmal anxiety]; Z79.899 Other long term (current) drug therapy; Z03.818 Encounter for observation for suspected exposure to other biological agents ruled out
CPT/HCPCS: 0241U; 36415; 71046; 80048; 80076; 83735; 84484; 85025; 93005; 99283; 99284

== ENCOUNTER → 2024-08-21 17:52 | Outpatient (BNV) | payer OTHER, SELFPAY | PROVIDERS: Emergency Provider Emergency Medicine; Visit Provider Internal Medicine | DX: R94.31 Abnormal electrocardiogram [ECG] [EKG] (principal) | CPT/HCPCS: 93010 ==

== ENCOUNTER → 2024-08-21 18:09 | Outpatient (BNV) | payer OTHER, SELFPAY | PROVIDERS: Visit Provider Radiology Diagnostic Radiology | DX: R07.9 Chest pain, unspecified (principal) | CPT/HCPCS: 71046 ==

== ENCOUNTER 2024-09-02 05:42 | Emergency (ER) | payer OTHER, SELFPAY ==
--- NOTE | 2024-09-02 | ECG_ITS ---
Test Reason : CHEST PAIN Blood Pressure : */* mmHG Vent. Rate : 92 BPM Atrial Rate : 92 BPM P-R Int : 154 ms QRS Dur : 142 ms QT Int : 382 ms P-R-T Axes : 34 18 68 degrees QTcB Int : 472 ms Normal sinus rhythm Left bundle branch block Abnormal ECG When compared with ECG of 21-Aug-2024 17:52, No significant change was found Referred By: Generic ED Physician Electronically Signed By: HUSEYIN DORANTES MD
--- NOTE | ~2024-09-02 | XR_ITS ---
EXAMINATION: XR CHEST CLINICAL INFORMATION: cp/sob COMPARISON: Chest 08/21/2024 TECHNIQUE: Frontal view of the chest was obtained. FINDINGS: No significant abnormality is noted involving the heart, lungs, mediastinum, bony thorax or soft tissues. XR/XR chest 1V IMPRESSION: Unremarkable chest examination. No change from 08/21/2024 chest exam Electronically signed by: Gerson Braswell MD 09/02/2024 07:10 [facility]
[2024-09-02 05:53] VITALS: BP 150/85; PULSE 93; RESP 20; TEMP 36.6; O2SAT 95; BMI 43.7
[2024-09-02 06:09] LABS: MANUAL DIFF FLAG NO
[2024-09-02 06:11] LABS: Basophils Absolute Auto 0.2 X10*3/uL (0.0-0.2); Basophils Percent Auto 1.4 % (0-2); Eosinophils Absolute Auto 1.1 X10*3/uL (0.0-0.4); Hematocrit 41.5 % (42.0-52.0); Hemoglobin 14.2 g/dl (14.0-18.0); Imm Gran Abs Auto 0.05 X10*3/uL (0.00-0.03); Imm Gran Pct Auto 0.4 % (0.0-0.4); Lymphocytes Absolute Auto 3.1 X10*3/uL (1.2-4.9); Lymphocytes Percent Auto 27.8 % (20-40); Mean Corpuscular HGB Conc 34.2 g/dl (31.0-36.0); Mean Corpuscular Hemoglobin 27.6 pg (27.0-33.0); Mean Corpuscular Volume 80.7 fL (80.0-98.0); Mean Platelet Volume 9.6 fL (9.4-12.4); Monocytes Absolute Auto 1.1 X10*3/uL (0.1-1.2); Monocytes Percent Auto 9.4 % (2-11); Neutrophils Absolute Auto 5.7 x10*3/uL (2.0-8.3); Platelet Count 338 X10*3/uL (160-400); Red Blood Count 5.14 X10*6/uL (4.60-5.80); White Blood Count 11.2 X10*3/uL (4.8-10.8)
[2024-09-02 06:33] LABS: Alanine Aminotransferase 37 U/L (0-40); Alkaline Phosphatase 84 U/L (39-117); Anion Gap 13 (12-20); Aspartate Amino Transferase 34 U/L (5-37); Bilirubin Total 0.5 mg/dL (0.0-1.0); Blood Urea Nitrogen 7 mg/dL (9-16); Calcium 8.2 mg/dL (8.4-10.2); Carbon Dioxide 20 mmol/L (22-29); Chloride 108 mmol/L (96-108); Creatinine Clr Calc Pharmacy 184.5; Estimated Glomerular Filt Rate > 60; Glucose Random 111 mg/dL (60-115); Potassium 3.8 mmol/L (3.3-5.1); Sodium 137 mmol/L (135-145); Total Protein 7.7 g/dL (6.5-8.0)
[2024-09-02 06:46] LABS: Influenza A PCR NEGATIVE (Negative); Influenza B PCR NEGATIVE (Negative); Resp Syncy Virus RNA Qual PCR NEGATIVE (Negative); SARS COV2 PCR INHOUSE NEGATIVE (Negative)
--- NOTE | 2024-09-02 06:48 | PC.NURSE ---
pt to emc 3, RT notified of wheezing.
[2024-09-02 06:54] LABS: Troponin-I High Sensitivity < 2.7 ng/L (<3.5-35.0)
[2024-09-02] MEDS: Albuterol Sulfate 5 MG, Albuterol/Iprat 2.5/0.5MG 3 ML 3 ML INHALE (07:18)
[2024-09-02 07:19] VITALS: PULSE 93; RESP 20; O2SAT 97
[2024-09-02] MEDS: methylPREDNISolone Sod Succ 125 MG/2 ML VIAL IVPUSH (07:33)
[2024-09-02] MEDS: Magnesium Sulfate/H2O 2 GM/50 ML PIGGYBACK IV (07:34)
--- NOTE | 2024-09-02 08:07 | ED_ITS ---
HPI - General Adult General Chief complaint: Dyspnea Stated complaint: SOB, chest pain Time Seen by Provider: 09/02/24 06:54 Source: patient Mode of arrival: ambulatory Limitations: no limitations History of Present Illness ED Provider: MICHELLE HUTSON PA-C HPI narrative: 29 year old male with pmhx significant for asthma presents to the ED today for evaluation of chest pain and shortness of breath which began around 0200 this morning. He reports lying down to go to bed when he was hit with a wave of chest pain. He felt out of breath and needed to sit up. He then decided to drive himself to the ED for further evaluation. On arrival, his chest pain has completely resolved. At onset, it was diffuse and did not radiate. No jaw or extremity pain. He does have a history of asthma however states this felt different. He admits to recent anxiety/ life stressors. He is concern this may be related to his anxiety as this tends to happen when he lies down for bed at night. He is not currently on any medications for his anxiety. He is asymptomatic on my interview. Denies any complaints at present. Related Data Home Medications ?Medication ?Instructions ?Recorded ?Confirmed albuterol sulfate 2.5 mg/3 mL 2.5 mg inhalation Q6H PRN wheezing 10/08/23 10/08/23 (0.083 %) solution for nebulization albuterol sulfate 90 mcg/actuation 2 puff inhalation Q4-6H PRN 10/08/23 10/08/23 aerosol inhaler wheezing fluticasone 500 mcg-salmeterol 50 1 inh inhalation BID 10/08/23 10/08/23 mcg/dose blistr powdr for inhalation (Advair Diskus) montelukast 10 mg tablet 10 mg PO DAILY 10/08/23 10/08/23 Previous Rx's ?Medication ?Instructions ?Recorded nebulizer and compressor #1 ea 09/15/21 nebulizers (Aeroneb Go Nebulizer) #1 ea 04/18/22 prednisone 20 mg tablet 20 mg PO DAILY #5 tabs 10/08/23 prednisone 20 mg tablet 40 mg (2 x 20 mg) PO DAILY 5 days 11/13/23 #10 tabs albuterol sulfate 2.5 mg/3 mL 2.5 mg (3 mL) inhalation Q4-6H PRN 11/26/23 (0.083 %) solution for nebulization shortness of breath or wheezing #90 mL albuterol sulfate 90 mcg/actuation 2 puff inhalation Q4-6H PRN 11/26/23 aerosol inhaler (ProAir HFA) shortness of breath or wheezing #8.5 grams prednisone 20 mg tablet 40 mg (2 x 20 mg) PO DAILY #10 tabs 11/26/23 albuterol sulfate 2.5 mg/3 mL 2.5 mg (3 mL) inhalation Q6H #75 mL 12/07/23 (0.083 %) solution for nebulization albuterol sulfate 90 mcg/actuation 2 inh inhalation Q4-6H PRN 12/07/23 breath activated powder inhaler shortness of breath or wheezing #1 ea prednisone 50 mg tablet 50 mg PO DAILY 5 days #5 tabs 12/07/23 azithromycin 250 mg tablet See Rx Instructions PO .COMPLEX #6 12/13/23 tabs benzonatate 200 mg capsule 200 mg PO TID PRN cough 5 days #15 12/13/23 caps prednisone 20 mg tablet 40 mg (2 x 20 mg) PO DAILY 5 days 12/13/23 #10 tabs prednisone 20 mg tablet 20 mg PO BID #10 tabs 12/23/23 budesonide-formoterol HFA 160 1 puff inhalation BID #10.2 grams 01/22/24 mcg-4.5 mcg/actuation aerosol inhaler (Symbicort) prednisone 50 mg tablet 50 mg PO DAILY #4 tabs 01/22/24 prednisone 20 mg tablet 40 mg (2 x 20 mg) PO DAILY 5 days 06/05/24 #10 tabs prednisone 20 mg tablet 40 mg (2 x 20 mg) PO DAILY 3 days 09/02/24 #6 tabs Allergies Allergy/AdvReac Type Severity Reaction Status Date / Time shellfish derived Allergy Severe SHORTNESS Verified 09/02/24 05:55 OF BREATH, SWELLING shrimp Allergy Severe ANAPHYLAXIS Verified 09/02/24 05:55 Review of Systems 2 Review of Systems: Constitutional: No fever, chills, fatigue, night sweats, weight changes ENT/Mouth: No ear pain, hearing loss, nasal congestion, sinus pain, rhinorrhea, sore throat Eyes: No eye pain, swelling, redness, vision changes, discharge Cardio: No chest pain, palpitations, MYERS, orthopnea, peripheral edema Pulm: No SOB, cough, sputum, wheezing, dyspnea, hemoptysis GI: No nausea, vomiting, hematemesis, abdominal pain, diarrhea, constipation, hematochezia, melena : No irregular bleeding, dysuria, frequency, urgency, hesitancy, hematuria, flank pain, urinary flow changes, urinary incontinence or retention MSK: No back pain, neck pain, joint pain, myalgias Skin: No lesions, rashes Neuro: No weakness, numbness, paresthesias, LOC, dizziness, headache Psych: No anxiety/panic, depression, SI/HI, AH/VH All other systems reviewed and are negative. [facility] Past Medical History Attestation statement: The following information was validated with the patient. Source: old records reviewed and nursing notes reviewed Medical History Asthma Pneumonia due to 2019 novel coronavirus Asthma Family History Family History Mother Asthma Social History Social History Household Members: None Housing: House Do you presently have visiting nurse or other home services: No Alcohol intake: never Patient Tobacco Use Status: Never used Tobacco Advance Directives: No Advance Directives Information Provided: Yes Do you have a plan to hurt others: No Plan service: No Current occupational status: unemployed Physical Exam ED Vital Signs: Vital Signs - 24 hr 09/02/24 05:53 09/02/24 07:19 09/02/24 11:28 Temperature 98 F 0 F L Pulse Rate 93 93 93 Respiratory Rate 20 20 20 Blood Pressure 150/85 H 00/00 L Pulse Oximetry 95 Oxygen Delivery Method Room Air BMI result Body Mass Index 43.7 Course Course Course Narrative: Patient with leukocytosis of 11.2 which appears to be around his baseline. There is no left shift. No anemia. H&H stable. His chemistry does not demonstrate any acute electrolyte abnormality requiring intervention. No RENÉE. Troponin flat x2. Physical exam without evidence of fluid overload. He tested negative for covid, flu, and rsv. His chest x-ray does not demonstrate infiltrate or consolidation to suggest pneumonia. No effusion. EKG showing normal sinus rhythm with a rate of 92 beats per minute, left bundle-branch block evident on priors, no acute ischemic changes or ST elevations. > he has remained completely asymptomatic throughout ED stay. he states he feels well and would like to go home. He was initially noted to have scattered expiratory wheezes which have improved with ED bronch protocol, IV Solu-Medrol and magnesium. Patient has remained stable throughout ED visit today. Discussed worrisome signs and symptoms and when to return to the ED. All questions answered at this time. Patient is agreeable with disposition and stable for discharge. Medications Administered Discontinued Medications Generic Name Dose Route Start Last Admin Trade Name Freq PRN Reason Stop Dose Admin Albuterol Sulfate 5 mg/ 0 mg 09/02/24 07:13 09/02/24 07:18 Albuterol/Ipratropium 3 ml INHALE 09/02/24 07:14 1 each ONCE ONE Administration Magnesium Sulfate 2 gm in 50 mls @ 25 mls/hr 09/02/24 07:04 09/02/24 08:15 Magnesium Sulfate/H2o IV 09/02/24 09:03 Infused ONCE ONE Infusion Methylprednisolone Sodium Succinate 125 mg 09/02/24 07:04 09/02/24 07:33 Methylprednisolone Sod Succ 125 Mg/2 Ml Vial IVPUSH 09/02/24 07:05 125 mg ONCE ONE Administration Medical Decision Making Medical Decision Making MDM Narrative: 29 year old male with pmhx significant for asthma presents to the ED today for evaluation of chest pain and shortness of breath which began around 0200 this morning. Patient is hypertensive to 150/85, vitals are otherwise wnl. he is not hypoxic or tachycardic. He is nontoxic appearing and in NAD. On exam, lungs with few scattered expiratory wheezes. His symptoms suggestive of noncardiac chest pain.? History without high risk features (not substernal, no exertional component, not relieved with rest).? Minimal CAD risk factors (including age). Exam without evidence of volume overload. EKG without signs of active ischemia. HEART score: 0.? Given the timing of pain to ED presentation, plan to send delta troponin to evaluate for NSTEMI. Differential diagnosis includes anemia, electrolyte abnormality, dehydration, anxiety, arrhythmia Presentation not consistent with acute PE (PERC 0), pneumothorax, thoracic aortic dissection, cardiac effusion or tamponade. Plan: labs, troponin, EKG, CXR, ed bronch protocol, reassessment Differential Diagnosis Differential Diagnoses: The differential diagnosis associated with the presentation includes as above. Admission/Observation not indicated Lab Data MDM Lab Attestation statement: I reviewed the patient's lab results. as above 09/02/24 05:47 09/02/24 05:47 Labs: Lab Results 09/02/24 09/02/24 Range/Units 05:47 09:14 WBC 11.2 H (4.8-10.8) X10*3/uL RBC 5.14 (4.60-5.80) X10*6/uL Hgb 14.2 (14.0-18.0) g/dl Hct 41.5 L (42.0-52.0) % MCV 80.7 (80.0-98.0) fL MCH 27.6 (27.0-33.0) pg MCHC 34.2 (31.0-36.0) g/dl RDW 12.0 (11.0-16.0) % Plt Count 338 (160-400) X10*3/uL MPV 9.6 (9.4-12.4) fL Immature Gran % (Auto) 0.4 (0.0-0.4) % Neut % (Auto) 51.0 (45-73) % Lymph % (Auto) 27.8 (20-40) % [place] % (Auto) 9.4 (2-11) % Eos % (Auto) 10.0 H (0-4) % Baso % (Auto) 1.4 (0-2) % Lymph # (Auto) 3.1 (1.2-4.9) X10*3/uL [place] # (Auto) 1.1 (0.1-1.2) X10*3/uL Eos # (Auto) 1.1 H (0.0-0.4) X10*3/uL Baso # (Auto) 0.2 (0.0-0.2) X10*3/uL Abs Immat Gran (auto) 0.05 H (0.00-0.03) X10*3/uL Absolute Neuts (auto) 5.7 (2.0-8.3) x10*3/uL Absolute Nucleated RBC 0.000 (0.0-0.012) X10*3/uL Nucleated RBC % (auto) 0.0 (0.0-0.2) /100WBC Sodium 137 (135-145) mmol/L Potassium 3.8 (3.3-5.1) mmol/L Chloride 108 (96-108) mmol/L Carbon Dioxide 20 L (22-29) mmol/L Anion Gap 13 (12-20) BUN 7 L (9-16) mg/dL Creatinine 0.70 (0.5-1.4) mg/dL Estim Creat Clear Calc 184.5 Estimated GFR > 60 Random Glucose 111 (60-115) mg/dL Calcium 8.2 L (8.4-10.2) mg/dL Total Bilirubin 0.5 (0.0-1.0) mg/dL AST 34 (5-37) U/L ALT 37 (0-40) U/L Alkaline Phosphatase 84 (39-117) U/L Troponin I High Sens < 2.7 < 2.7 (<3.5-35.0) ng/L Total Protein 7.7 (6.5-8.0) g/dL Albumin 4.0 (3.5-5.0) g/dL Influenza Type A (PCR) NEGATIVE (Negative) Influenza Type B (PCR) NEGATIVE (Negative) RSV RNA Qual (PCR) NEGATIVE (Negative) SARS-CoV-2 RNA (RT-PCR) NEGATIVE (Negative) Independent Interpretation I performed an independent interpretation of an: EKG and Plain X-Ray Interpretation: EKG EKG showing normal sinus rhythm with a rate of 92 beats per minute, left bundle-branch block, no acute ischemic changes or ST elevations CXR without infiltrate or consolidation Radiology Impression Discussion of test interpretation with radiology: I have reviewed the radiologist's reading. Radiologist Impression: EXAMINATION: XR CHEST CLINICAL INFORMATION: cp/sob COMPARISON: Chest 08/21/2024 TECHNIQUE: Frontal view of the chest was obtained. FINDINGS: No significant abnormality is noted involving the heart, lungs, mediastinum, bony thorax or soft tissues. XR/XR chest 1V IMPRESSION: Unremarkable chest examination. No change from 08/21/2024 chest exam Electronically signed by: Gerson Braswell MD 09/02/2024 07:10 AM [facility] [place], [place] External Record Review External record reviewed: Inpatient record, Office record, Outpatient record, Prior outpatient labs, Prior outpatient radiology, Primary care record and Outside ED record Prescription Management I considered prescription management with: Other (prednisone) Chronic Conditions Patient?s care impacted by: Other (asthma) Social Determinants Patient?s care significantly limited by Social Determinants of Health including: Other Social Determinant of Health Critical Care Time Critical Care Time Critical Care Time: No Discharge Plan Discharge Clinical Impression: Atypical chest pain Patient Disposition: Home, Self-Care Instructions: Chest Pain (ED), Noncardiac Chest Pain (ED) Additional Instructions: You were evaluated in the Emergency Department today for chest pain. Your evaluation has shown no signs of medical conditions requiring emergent intervention at this time, however I recommend that you follow up with your primary care provider or your icu specialist as soon as possible for further testing as an outpatient. If you do not have one, a referral has been provided. Please call them to make an appointment, they will not call you. Continue to use your rescue inhaler at home as needed for shortness of breath or wheezing. I have also sent a short course of steroids to your pharmacy. Please follow up with your PCP regarding anxiety. Return to the Emergency Department if you experience worsening or uncontrolled chest pain, shortness of breath, light headedness, feeling faint, nausea, vomiting, or any other concerning symptoms. Prescriptions: New prednisone 20 mg tablet 40 mg PO DAILY 3 Days Qty: 6 0RF No Action (DME) nebulizer and compressor Device See Rx Instructions .Route Qty: 1 0RF Rx Instructions: As directed (DME) nebulizers [Aeroneb Go Nebulizer] Misc See Rx Instructions .Route Qty: 1 0RF Rx Instructions: As directed prednisone 20 mg tablet 20 mg PO BID Qty: 10 0RF albuterol sulfate 2.5 mg /3 mL (0.083 %) solution for nebulization 2.5 mg inhalation Q6H PRN (Reason: wheezing) albuterol sulfate 90 mcg/actuation HFA aerosol inhaler 2 puff inhalation Q4-6H PRN (Reason: wheezing) fluticasone propion-salmeterol [Advair Diskus] 500-50 mcg/dose Blister With Device 1 inh INHALATION BID montelukast 10 mg Tablet 10 mg PO DAILY prednisone 20 mg tablet 20 mg PO DAILY Qty: 5 0RF Rx Instructions: Take one tablet daily for five days. prednisone 20 mg tablet 40 mg PO DAILY 5 Days Qty: 10 0RF albuterol sulfate 2.5 mg /3 mL (0.083 %) solution for nebulization 2.5 mg inhalation Q4-6H PRN (Reason: shortness of breath or wheezing) Qty: 90 0RF prednisone 20 mg tablet 40 mg PO DAILY Qty: 10 0RF albuterol sulfate [ProAir HFA] 90 mcg/actuation HFA aerosol inhaler 2 puff inhalation Q4-6H PRN (Reason: shortness of breath or wheezing) Qty: 8.5 0RF prednisone 50 mg tablet 50 mg PO DAILY 5 Days Qty: 5 0RF albuterol sulfate 2.5 mg /3 mL (0.083 %) solution for nebulization 2.5 mg inhalation Q6H Qty: 75 0RF albuterol sulfate 90 mcg/actuation aerosol powdr breath activated 2 inh inhalation Q4-6H PRN (Reason: shortness of breath or wheezing) Qty: 1 0RF prednisone 20 mg tablet 40 mg PO DAILY 5 Days Qty: 10 0RF benzonatate 200 mg capsule 200 mg PO TID PRN (Reason: cough) 5 Days Qty: 15 0RF azithromycin 250 mg tablet See Rx Instructions .ROUTE .COMPLEX Qty: 6 0RF Rx Instructions: For 250 mg dose pack: take 500 mg today (day 1), then 250 mg for 4 days (days 2-5) budesonide-formoterol [Symbicort] 160-4.5 mcg/actuation HFA aerosol inhaler 1 puff inhalation BID Qty: 10.2 0RF prednisone 50 mg tablet 50 mg PO DAILY Qty: 4 0RF prednisone 20 mg tablet 40 mg PO DAILY 5 Days Qty: 10 0RF Referrals: Kenny Linares MD [Primary Care Provider] - Interventions: ED Discharge Assessment Last Done: 09/02/24 11:28 Discharge Date/Time: 09/02/24 11:29 Print Language: Indonesian
[2024-09-02 09:55] LABS: Troponin-I High Sensitivity < 2.7 ng/L (<3.5-35.0)
[2024-09-02 11:28] VITALS: BP 00/00; PULSE 93; RESP 20; TEMP -17.7; TEMP 0
== END 2024-09-02 11:29 | disposition home or self-care (01) ==
PROVIDERS: Physician Assistant Medical; Emergency Provider Emergency Medicine; PCP Internal Medicine
DX: R07.9 Chest pain, unspecified (principal); R05.9 Cough, unspecified; R06.02 Shortness of breath; Z79.891 Long term (current) use of opiate analgesic; Z03.818 Encounter for observation for suspected exposure to other biological agents ruled out
CPT/HCPCS: 0241U; 36415; 71045; 80053; 84484; 85025; 93005; 94640; 96365; 96375; 99284; J2919; J3475

== ENCOUNTER → 2024-09-02 05:45 | Outpatient (BNV) | payer OTHER, SELFPAY | PROVIDERS: Emergency Provider Emergency Medicine; PCP Internal Medicine; Visit Provider Internal Medicine Cardiovascular Disease | DX: R94.31 Abnormal electrocardiogram [ECG] [EKG] (principal) | CPT/HCPCS: 93010 ==

== ENCOUNTER → 2024-09-02 06:17 | Outpatient (BNV) | payer OTHER, SELFPAY | PROVIDERS: Emergency Provider Emergency Medicine; PCP Internal Medicine; Visit Provider Radiology Diagnostic Radiology | DX: R07.9 Chest pain, unspecified (principal); R06.02 Shortness of breath | CPT/HCPCS: 71045 ==

== ENCOUNTER 2024-09-06 02:35 | Emergency (ER) | payer OTHER, SELFPAY ==
[2024-09-06] VITALS (7 sets, daily range): BP systolic 110–133; BP diastolic 54–86; PULSE 79–109; RESP 14–21; TEMP 36.5–37.1; O2SAT 91–96; BMI 38.3
--- NOTE | ~2024-09-06 | XR_ITS ---
CLINICAL HISTORY: asthma 2 views chest Comparison: CR/SR - XR CHEST 1V - 09/02/24 06:27 EST Findings: Cardiac and mediastinal contours are normal. Mild interstitial prominence with scattered peribronchial thickening. No focal consolidation. No effusion. No pneumothorax. No acute osseous finding. Impression: Mild interstitial prominence with scattered peribronchial thickening. No focal consolidation. This document has been electronically signed by: Jarad Segundo MD on 09/06/2024 03:23:29
[2024-09-06 03:36] LABS: Influenza A PCR NEGATIVE (Negative); Influenza B PCR NEGATIVE (Negative); Resp Syncy Virus RNA Qual PCR NEGATIVE (Negative); SARS COV2 PCR INHOUSE NEGATIVE (Negative)
--- NOTE | 2024-09-06 07:01 | ED.ASTHMA ---
HPI - Asthma General Chief Complaint: Asthma Stated Complaint: asthma Time Seen by Provider: 09/06/24 06:32 Source: patient, RN notes reviewed and old records reviewed Mode of arrival: ambulatory Limitations: no limitations History of Present Illness ED Provider: Wyatt Wilson PA-C HPI Narrative: 29 yo male with history of obesity, moderate to severe persistent asthma with several ER visits for asthma, last admitted 1 year ago who presents to the ER for evaluation of acute onset of SOB in the middle of the night that woke him out of sleep at 2am. He reports difficulty catching his breath. He has been using his inhaler with minimal relief so came to the ER. He was recently seen here on 09/02 for chest pain. He was discharged with 3 days of prednisone which he took. He is not on antibiotics currently. He is a nonsmoker. He is not sure what trigger his SOB overnight. MD complaint: shortness of breath Onset (ago): hour(s) Severity: similar to prior Treatments Prior to Arrival: inhaled bronchodilator Related Data Current Asthma Therapy: inhaled bronchodilator Home Medications ?Medication ?Instructions ?Recorded ?Confirmed albuterol sulfate 2.5 mg/3 mL 2.5 mg inhalation Q6H PRN wheezing 10/08/23 10/08/23 (0.083 %) solution for nebulization albuterol sulfate 90 mcg/actuation 2 puff inhalation Q4-6H PRN 10/08/23 10/08/23 aerosol inhaler wheezing fluticasone 500 mcg-salmeterol 50 1 inh inhalation BID 10/08/23 10/08/23 mcg/dose blistr powdr for inhalation (Advair Diskus) montelukast 10 mg tablet 10 mg PO DAILY 10/08/23 10/08/23 Previous Rx's ?Medication ?Instructions ?Recorded nebulizer and compressor #1 ea 09/15/21 nebulizers (Aeroneb Go Nebulizer) #1 ea 04/18/22 prednisone 20 mg tablet 20 mg PO DAILY #5 tabs 10/08/23 prednisone 20 mg tablet 40 mg (2 x 20 mg) PO DAILY 5 days 11/13/23 #10 tabs albuterol sulfate 2.5 mg/3 mL 2.5 mg (3 mL) inhalation Q4-6H PRN 11/26/23 (0.083 %) solution for nebulization shortness of breath or wheezing #90 mL albuterol sulfate 90 mcg/actuation 2 puff inhalation Q4-6H PRN 11/26/23 aerosol inhaler (ProAir HFA) shortness of breath or wheezing #8.5 grams prednisone 20 mg tablet 40 mg (2 x 20 mg) PO DAILY #10 tabs 11/26/23 albuterol sulfate 2.5 mg/3 mL 2.5 mg (3 mL) inhalation Q6H #75 mL 12/07/23 (0.083 %) solution for nebulization albuterol sulfate 90 mcg/actuation 2 inh inhalation Q4-6H PRN 12/07/23 breath activated powder inhaler shortness of breath or wheezing #1 ea prednisone 50 mg tablet 50 mg PO DAILY 5 days #5 tabs 12/07/23 azithromycin 250 mg tablet See Rx Instructions PO .COMPLEX #6 12/13/23 tabs benzonatate 200 mg capsule 200 mg PO TID PRN cough 5 days #15 12/13/23 caps prednisone 20 mg tablet 40 mg (2 x 20 mg) PO DAILY 5 days 12/13/23 #10 tabs prednisone 20 mg tablet 20 mg PO BID #10 tabs 12/23/23 budesonide-formoterol HFA 160 1 puff inhalation BID #10.2 grams 01/22/24 mcg-4.5 mcg/actuation aerosol inhaler (Symbicort) prednisone 50 mg tablet 50 mg PO DAILY #4 tabs 01/22/24 prednisone 20 mg tablet 40 mg (2 x 20 mg) PO DAILY 5 days 06/05/24 #10 tabs prednisone 20 mg tablet 40 mg (2 x 20 mg) PO DAILY 3 days 09/02/24 #6 tabs albuterol sulfate 90 mcg/actuation 1 inh inhalation QID PRN shortness 09/06/24 aerosol inhaler of breath or wheezing #6.7 grams Allergies Allergy/AdvReac Type Severity Reaction Status Date / Time shellfish derived Allergy Severe SHORTNESS Verified 09/06/24 02:39 OF BREATH, SWELLING shrimp Allergy Severe ANAPHYLAXIS Verified 09/06/24 02:39 Review of Systems Review of Systems: Yes all other systems are reviewed and are negative PMFSH Past Medical History Medical History Asthma Pneumonia due to 2019 novel coronavirus Asthma Family History Family History Mother Asthma Social History Social History Household Members: None Housing: House Do you presently have visiting nurse or other home services: No Alcohol intake: never Patient Tobacco Use Status: Never used Tobacco Use of substances other than those prescribed or required for medical reasons: No Advance Directives: No Do you have a plan to hurt others: No Plan service: No Current occupational status: unemployed Physical Exam Vital Signs: Vital Signs: Last Vital Signs Temp 97.7 F 09/06/24 07:02 Pulse 102 H 09/06/24 07:17 Resp 21 H 09/06/24 07:17 BP 112/74 09/06/24 07:02 Pulse Ox 91 L 09/06/24 07:02 O2 Del Method Room Air 09/06/24 07:02 BMI result Body Mass Index 38.3 Appearance: Alert. Oriented X3. sleeping comfortably on his left side Head: normocephalic, atraumatic. Eyes: Pupils equal, round and reactive to light. ENT: Pharynx normal. No tonsillar swelling or exudate. Neck: Normal inspection. Neck supple. CVS: Normal heart rate and rhythm. Pulses normal. Respiratory: No respiratory distress. Breath sounds diminished at the bases, no wheezes, rhonchi or rales. Abdomen: Obese Soft and nontender. +BS x4 Skin: Skin warm and dry. Normal skin color. Normal skin turgor. No rashes. Extremities: No lower extremity edema. No joint swelling. Neuro/psych: Oriented X 3. grossly normal, nonfocal.Normal speech and cognition. Medications Administered Discontinued Medications Generic Name Dose Route Start Last Admin Trade Name Freq PRN Reason Stop Dose Admin Albuterol Sulfate 2.5 mg/ 0 mg 09/06/24 07:16 09/06/24 07:19 Albuterol/Ipratropium 3 ml INHALE 09/06/24 07:17 5 dose ONCE ONE Administration Medical Decision Making Medical Decision Making MDM Narrative: 29 yo male with history of moderate persistent asthma, frequent ER visits for her asthma who presents to the ER for evaluation of acute onset of shortness of breath that woke him out of the IM. Arrives to the ER with SpO2 94%, no respiratory distress. On evaluation there was no wheezing, rhonchi or rales, he was sleeping comfortably. When woken up and sat up his SpO2 decreased to 91%. He is using his inhaler. Asking for breathing treatment. No respiratory distress. Chest x-ray reviewed, no focal pneumonia. He is negative for COVID, flu, RSV. Patient was given a breathing treatment and he is feeling better. When he falls asleep is SpO2 drops to 90%, when awoken it increases to 94%. We discussed the concern for ANASTASIA/ohs and need for pulmonary follow-up. Patient agrees and will call the office for follow-up. He is breathing comfortably, oxygenating well when awake and he is stable for discharge home and outpatient follow-up. No role for steroids as he is not wheezing right now and just completed a 3 day course of prednisone. Differential Diagnosis Differential Diagnoses: The differential diagnosis associated with the presentation includes acute asthma exacerbation, panic attack, ANASTASIA, PNA Admission/Observation Consideration of admission/observation: Escalation of care including admission/observation considered Lab Data MDM Lab Attestation statement: I reviewed the patient's lab results. Labs: Lab Results 09/06/24 Range/Units 02:54 Influenza Type A (PCR) NEGATIVE (Negative) Influenza Type B (PCR) NEGATIVE (Negative) RSV RNA Qual (PCR) NEGATIVE (Negative) SARS-CoV-2 RNA (RT-PCR) NEGATIVE (Negative) Independent Interpretation I performed an independent interpretation of an: Plain X-Ray Interpretation: No focal infiltrate or effusion Radiology Impression Discussion of test interpretation with radiology: I have reviewed the radiologist's reading. External Record Review External record reviewed: Inpatient record, Outpatient record and Prior outpatient labs Prescription Management I considered prescription management with: Antibiotic and Other (Bronchodilator) Chronic Conditions Patient?s care impacted by: Other (Asthma, obesity) Social Determinants Patient?s care significantly limited by Social Determinants of Health including: Other Social Determinant of Health Discharge Plan Discharge Clinical Impression: Asthma Qualifiers: Asthma severity: unspecified severity Asthma persistence: unspecified Asthma complication type: unspecified Qualified Code(s): J45.909 - Unspecified asthma, uncomplicated Patient Disposition: Home, Self-Care Instructions: Asthma (DC) Additional Instructions: your x-ray did not show any evidence of pneumonia you tested negative for covid, flu and rsv you had no wheezing in your lungs recommend following up with a lung doctor - call for an appointment use your inhaler and nebulizer as needed for shortness of breath and wheezing If you develop new or worsening symptoms call 911 or come back to the ER for further evaluation. Prescriptions: New albuterol sulfate 90 mcg/actuation HFA aerosol inhaler 1 inh inhalation QID PRN (Reason: shortness of breath or wheezing) Qty: 6.7 0RF No Action (DME) nebulizer and compressor Device See Rx Instructions .Route Qty: 1 0RF Rx Instructions: As directed (DME) nebulizers [Aeroneb Go Nebulizer] Misc See Rx Instructions .Route Qty: 1 0RF Rx Instructions: As directed prednisone 20 mg tablet 20 mg PO BID Qty: 10 0RF prednisone 20 mg tablet 40 mg PO DAILY 3 Days Qty: 6 0RF albuterol sulfate 2.5 mg /3 mL (0.083 %) solution for nebulization 2.5 mg inhalation Q6H PRN (Reason: wheezing) albuterol sulfate 90 mcg/actuation HFA aerosol inhaler 2 puff inhalation Q4-6H PRN (Reason: wheezing) fluticasone propion-salmeterol [Advair Diskus] 500-50 mcg/dose Blister With Device 1 inh INHALATION BID montelukast 10 mg Tablet 10 mg PO DAILY prednisone 20 mg tablet 20 mg PO DAILY Qty: 5 0RF Rx Instructions: Take one tablet daily for five days. prednisone 20 mg tablet 40 mg PO DAILY 5 Days Qty: 10 0RF albuterol sulfate 2.5 mg /3 mL (0.083 %) solution for nebulization 2.5 mg inhalation Q4-6H PRN (Reason: shortness of breath or wheezing) Qty: 90 0RF prednisone 20 mg tablet 40 mg PO DAILY Qty: 10 0RF albuterol sulfate [ProAir HFA] 90 mcg/actuation HFA aerosol inhaler 2 puff inhalation Q4-6H PRN (Reason: shortness of breath or wheezing) Qty: 8.5 0RF prednisone 50 mg tablet 50 mg PO DAILY 5 Days Qty: 5 0RF albuterol sulfate 2.5 mg /3 mL (0.083 %) solution for nebulization 2.5 mg inhalation Q6H Qty: 75 0RF albuterol sulfate 90 mcg/actuation aerosol powdr breath activated 2 inh inhalation Q4-6H PRN (Reason: shortness of breath or wheezing) Qty: 1 0RF prednisone 20 mg tablet 40 mg PO DAILY 5 Days Qty: 10 0RF benzonatate 200 mg capsule 200 mg PO TID PRN (Reason: cough) 5 Days Qty: 15 0RF azithromycin 250 mg tablet See Rx Instructions .ROUTE .COMPLEX Qty: 6 0RF Rx Instructions: For 250 mg dose pack: take 500 mg today (day 1), then 250 mg for 4 days (days 2-5) budesonide-formoterol [Symbicort] 160-4.5 mcg/actuation HFA aerosol inhaler 1 puff inhalation BID Qty: 10.2 0RF prednisone 50 mg tablet 50 mg PO DAILY Qty: 4 0RF prednisone 20 mg tablet 40 mg PO DAILY 5 Days Qty: 10 0RF Referrals: [facility] [Provider Group] Print Language: Luxembourgish
[2024-09-06] MEDS: Albuterol Sulfate 2.5 MG, Albuterol/Iprat 2.5/0.5MG 3 ML 3 ML INHALE (07:19)
== END 2024-09-06 08:12 | disposition home or self-care (01) ==
PROVIDERS: Emergency Provider Emergency Medicine
DX: J45.909 Unspecified asthma, uncomplicated (principal); R06.02 Shortness of breath; Z03.818 Encounter for observation for suspected exposure to other biological agents ruled out; Z79.899 Other long term (current) drug therapy
CPT/HCPCS: 0241U; 71046; 94640; 99284

== ENCOUNTER → 2024-09-06 02:53 | Outpatient (BNV) | payer OTHER, SELFPAY | PROVIDERS: Visit Provider Radiology Vascular & Interventional Radiology | DX: J98.09 Other diseases of bronchus, not elsewhere classified (principal) | CPT/HCPCS: 71045; 71046 ==

== ENCOUNTER 2024-09-06 23:28 | Inpatient (IN) | payer OTHER, SELFPAY ==
--- NOTE | ~2024-09-06 | XR_ITS ---
CLINICAL HISTORY: sob 1 view chest x-ray Comparison: CR - XR CHEST 2V - 09/06/24 03:02 EST Findings: The lungs are clear. Mild bilateral peribronchial thickening. Heart size is normal. No acute fracture. IMPRESSION: 1. Bilateral peribronchial thickening. No consolidation or infiltrate. This document has been electronically signed by: Srikanth Kearney MD, PHD on 09/07/2024 00:18:28
[2024-09-06 23:51] VITALS: PULSE 111; RESP 22; TEMP 36.7; O2SAT 92; BMI 38.3
--- NOTE | 2024-09-07 00:08 | ED.ASTHMA ---
HPI - Asthma General Chief Complaint: Asthma Stated Complaint: asthmatic/asthma attack Time Seen by Provider: 09/06/24 23:54 Source: patient Mode of arrival: ambulatory Limitations: no limitations History of Present Illness ED Provider: Dr. Briseida Manzano HPI Narrative: Patient comes to the emergency room complaining of an asthma exacerbation. Patient was seen here earlier today for an asthma exacerbation discharged home. Patient states that initially he was doing well at home, but it within a few hours of being in home he started feeling wheezing again. Patient known to have moderate to severe persistent asthma. Patient has had multiple admissions in the past. Patient was seen a few days ago in the ED for chest pain, discharged with prednisone. Patient states that he is currently on prednisone. Patient's knowledge, there are no specific triggers for his asthma. Related Data Home Medications ?Medication ?Instructions ?Recorded ?Confirmed albuterol sulfate 2.5 mg/3 mL 2.5 mg inhalation Q6H PRN wheezing 10/08/23 10/08/23 (0.083 %) solution for nebulization albuterol sulfate 90 mcg/actuation 2 puff inhalation Q4-6H PRN 10/08/23 10/08/23 aerosol inhaler wheezing fluticasone 500 mcg-salmeterol 50 1 inh inhalation BID 10/08/23 10/08/23 mcg/dose blistr powdr for inhalation (Advair Diskus) montelukast 10 mg tablet 10 mg PO DAILY 10/08/23 10/08/23 Previous Rx's ?Medication ?Instructions ?Recorded nebulizer and compressor #1 ea 09/15/21 nebulizers (Aeroneb Go Nebulizer) #1 ea 04/18/22 prednisone 20 mg tablet 20 mg PO DAILY #5 tabs 10/08/23 prednisone 20 mg tablet 40 mg (2 x 20 mg) PO DAILY 5 days 11/13/23 #10 tabs albuterol sulfate 2.5 mg/3 mL 2.5 mg (3 mL) inhalation Q4-6H PRN 11/26/23 (0.083 %) solution for nebulization shortness of breath or wheezing #90 mL albuterol sulfate 90 mcg/actuation 2 puff inhalation Q4-6H PRN 11/26/23 aerosol inhaler (ProAir HFA) shortness of breath or wheezing #8.5 grams prednisone 20 mg tablet 40 mg (2 x 20 mg) PO DAILY #10 tabs 11/26/23 albuterol sulfate 2.5 mg/3 mL 2.5 mg (3 mL) inhalation Q6H #75 mL 12/07/23 (0.083 %) solution for nebulization albuterol sulfate 90 mcg/actuation 2 inh inhalation Q4-6H PRN 12/07/23 breath activated powder inhaler shortness of breath or wheezing #1 ea prednisone 50 mg tablet 50 mg PO DAILY 5 days #5 tabs 12/07/23 azithromycin 250 mg tablet See Rx Instructions PO .COMPLEX #6 12/13/23 tabs benzonatate 200 mg capsule 200 mg PO TID PRN cough 5 days #15 12/13/23 caps prednisone 20 mg tablet 40 mg (2 x 20 mg) PO DAILY 5 days 12/13/23 #10 tabs prednisone 20 mg tablet 20 mg PO BID #10 tabs 12/23/23 budesonide-formoterol HFA 160 1 puff inhalation BID #10.2 grams 01/22/24 mcg-4.5 mcg/actuation aerosol inhaler (Symbicort) prednisone 50 mg tablet 50 mg PO DAILY #4 tabs 01/22/24 prednisone 20 mg tablet 40 mg (2 x 20 mg) PO DAILY 5 days 06/05/24 #10 tabs prednisone 20 mg tablet 40 mg (2 x 20 mg) PO DAILY 3 days 09/02/24 #6 tabs albuterol sulfate 90 mcg/actuation 1 inh inhalation QID PRN shortness 09/06/24 aerosol inhaler of breath or wheezing #6.7 grams Allergies Allergy/AdvReac Type Severity Reaction Status Date / Time shellfish derived Allergy Severe SHORTNESS Verified 09/06/24 23:52 OF BREATH, SWELLING shrimp Allergy Severe ANAPHYLAXIS Verified 09/06/24 23:52 Review of Systems Review of Systems: Constitutional : No Weight loss, No Fever, No Chills, No Night Sweats, No Fatigue, No Malaise ENT/Mouth : No Hearing loss, No Ear Pain, No Nasal Congestion, No Sinus Pain, No Hoarseness, No sore throat, No Rhinorrhea, No Swallowing Difficulty Eyes: No Eye Pain, No Swelling, No Redness, No Foreign Body, No Discharge, No Vision Changes Cardiovascular : No Chest Pain, No SOB, No Dyspnea on Exertion, No Orthopnea, No Edema, No Palpitations Respiratory : Complaining of cough, shortness of breath, wheezing Gastrointestinal : No Nausea, No Vomiting, No Diarrhea, No Constipation, No abdominal Pain, No Hematochezia, No Melena Genitourinary : no irregular bleeding, No Dysuria, No Urinary Frequency, No Hematuria, No Urinary Incontinence, No Urgency, No Flank Pain, No Urinary Flow Changes, No Hesitancy Musculoskeletal : No joint pain, No Myalgias, No Joint Swelling Skin : No Skin Lesions, No rash Neuro : No Weakness, No Numbness, No Paresthesias, No Loss of Consciousness, No Dizziness, No Headache Psych : No Anxiety/Panic, No Depression, No SI/HI/AH/VH, No Social Issues, Heme/Lymph: No Bruising, No Bleeding,No Lymphadenopathy Endocrine : No Polyuria, No Polydipsia, No Temperature Intolerance [facility] Past Medical History Medical History Asthma Pneumonia due to 2019 novel coronavirus Asthma Family History Family History Mother Asthma Social History Social History Household Members: None Housing: House Do you presently have visiting nurse or other home services: No Alcohol intake: never Patient Tobacco Use Status: Never used Tobacco Smoked in Last 30 Days: No Use of substances other than those prescribed or required for medical reasons: No Do you have a plan to hurt others: No Plan service: No Current occupational status: unemployed Physical Exam Vital Signs: Vital Signs: Last Vital Signs Temp 98.0 F 09/06/24 23:51 Pulse 109 H 09/07/24 00:20 Resp 22 H 09/07/24 00:20 Pulse Ox 92 09/06/24 23:51 O2 Del Method Room Air 09/06/24 23:51 BMI result Body Mass Index 38.3 Const: Other: Appearance: Alert. Oriented X3. No acute distress. Eyes: Pupils equal, round and reactive to light. ENT: Pharynx normal. Neck: Normal inspection. Neck supple. No lymph nodes noted. No crepitus CVS: Normal heart rate and rhythm. Pulses normal. Normal S1 and S2 Respiratory: Decreased breath sounds bilaterally, bilateral wheezing Abdomen: Soft and nontender. No rigidity. No distention. Skin: Skin warm and dry. Normal skin color. Normal skin turgor. Extremities: No lower extremity edema. No Lacerations. No Rash Neuro: Oriented X 3. No motor deficit. No sensory deficit. Moving all extremities. No slurred speech. CN 2 through 12 grossly intact Psych: calm, cooperative, normal affect Course Course Course Narrative: Patient receiving nebulization treatments, IV Solu-Medrol and magnesium. This is a 2nd time that the patient comes today. Patient known to have moderate to severe asthma. Medications Administered Generic Name Dose Route Start Last Admin Trade Name Freq PRN Reason Stop Dose Admin Magnesium Sulfate 2 gm in 50 mls @ 25 mls/hr 09/06/24 23:54 09/07/24 00:22 Magnesium Sulfate/H2o IV 09/07/24 01:53 25 mls/hr ONCE ONE Administration Discontinued Medications Generic Name Dose Route Start Last Admin Trade Name Freq PRN Reason Stop Dose Admin Albuterol Sulfate 2.5 mg/ 0 mg 09/07/24 00:10 09/07/24 00:15 Albuterol/Ipratropium 3 ml INHALE 09/07/24 00:11 0.5 dose ONCE ONE Administration Methylprednisolone Sodium Succinate 125 mg 09/06/24 23:54 09/07/24 00:22 Methylprednisolone Sod Succ 125 Mg/2 Ml Vial IVPUSH 09/06/24 23:55 125 mg ONCE ONE Administration Medical Decision Making Medical Decision Making [facility] Narrative: My interpretation of labs: No significant hematology abnormality, patient has chronic leukocytosis, patient is on steroids. No chemistry abnormality. Chest x-ray shows peribronchial thickening, no consolidation or infiltrates. Patient is still wheezing despite the above-mentioned treatment. Oxygen saturation 90-92% on room air. This is the 2nd time the patient comes to emergency room with similar symptoms. Patient known to have moderate to severe asthma. I discussed the patient with Dr. Cornejo from the Medicine team, patient being admitted Patient agrees with plan Differential Diagnosis Differential Diagnoses: The differential diagnosis associated with the presentation includes (Asthma, pneumonia, viral URI) Admission/Observation Consideration of admission/observation: Escalation of care including admission/observation considered Consult Healthcare Provider Management of the patient was discussed with: Hospitalist Lab Data [facility] Lab Attestation statement: I reviewed the patient's lab results. 09/07/24 00:10 09/07/24 00:10 Labs: Lab Results 09/07/24 Range/Units 00:10 WBC 15.6 H (4.8-10.8) X10*3/uL RBC 5.19 (4.60-5.80) X10*6/uL Hgb 14.7 (14.0-18.0) g/dl Hct 40.4 L (42.0-52.0) % MCV 77.8 L (80.0-98.0) fL MCH 28.3 (27.0-33.0) pg MCHC 36.4 H (31.0-36.0) g/dl RDW 12.0 (11.0-16.0) % Plt Count 360 (160-400) X10*3/uL MPV 9.3 L (9.4-12.4) fL Immature Gran % (Auto) 0.6 H (0.0-0.4) % Neut % (Auto) 59.0 (45-73) % Lymph % (Auto) 22.8 (20-40) % [place] % (Auto) 6.7 (2-11) % Eos % (Auto) 9.6 H (0-4) % Baso % (Auto) 1.3 (0-2) % Lymph # (Auto) 3.6 (1.2-4.9) X10*3/uL [place] # (Auto) 1.0 (0.1-1.2) X10*3/uL Eos # (Auto) 1.5 H (0.0-0.4) X10*3/uL Baso # (Auto) 0.2 (0.0-0.2) X10*3/uL Abs Immat Gran (auto) 0.10 H (0.00-0.03) X10*3/uL Absolute Neuts (auto) 9.2 H (2.0-8.3) x10*3/uL Absolute Nucleated RBC 0.000 (0.0-0.012) X10*3/uL Nucleated RBC % (auto) 0.0 (0.0-0.2) /100WBC Sodium 138 (135-145) mmol/L Potassium 4.6 D (3.3-5.1) mmol/L Chloride 109 H (96-108) mmol/L Carbon Dioxide 19 L (22-29) mmol/L Anion Gap 15 (12-20) BUN 10 (9-16) mg/dL Creatinine 0.82 (0.5-1.4) mg/dL Estim Creat Clear Calc 146.4 Estimated GFR > 60 Random Glucose 136 H (60-115) mg/dL Calcium 9.1 D (8.4-10.2) mg/dL Influenza Type A (PCR) NEGATIVE (Negative) Influenza Type B (PCR) NEGATIVE (Negative) RSV RNA Qual (PCR) NEGATIVE (Negative) SARS-CoV-2 RNA (RT-PCR) NEGATIVE (Negative) Independent Interpretation I performed an independent interpretation of an: Plain X-Ray Radiology Impression Discussion of test interpretation with radiology: I have reviewed the radiologist's reading. Radiologist Impression: Findings: The lungs are clear. Mild bilateral peribronchial thickening. Heart size is normal. No acute fracture. IMPRESSION: 1. Bilateral peribronchial thickening. No consolidation or infiltrate Critical Care Time Critical Care Time Critical Care Time: Yes Total Critical Care Time: 60 Attestation: Please follow-up with your primary care physician tomorrow. If you have any worsening or new symptoms, please return to the emergency room or call 911 Discharge Plan Discharge Clinical Impression: Asthma Patient Disposition: Admitted As Inpatient Prescriptions: No Action (DME) nebulizer and compressor Device See Rx Instructions .Route Qty: 1 0RF Rx Instructions: As directed (DME) nebulizers [Aeroneb Go Nebulizer] Misc See Rx Instructions .Route Qty: 1 0RF Rx Instructions: As directed prednisone 20 mg tablet 20 mg PO BID Qty: 10 0RF prednisone 20 mg tablet 40 mg PO DAILY 3 Days Qty: 6 0RF albuterol sulfate 90 mcg/actuation HFA aerosol inhaler 1 inh inhalation QID PRN (Reason: shortness of breath or wheezing) Qty: 6.7 0RF albuterol sulfate 2.5 mg /3 mL (0.083 %) solution for nebulization 2.5 mg inhalation Q6H PRN (Reason: wheezing) albuterol sulfate 90 mcg/actuation HFA aerosol inhaler 2 puff inhalation Q4-6H PRN (Reason: wheezing) fluticasone propion-salmeterol [Advair Diskus] 500-50 mcg/dose Blister With Device 1 inh INHALATION BID montelukast 10 mg Tablet 10 mg PO DAILY prednisone 20 mg tablet 20 mg PO DAILY Qty: 5 0RF Rx Instructions: Take one tablet daily for five days. prednisone 20 mg tablet 40 mg PO DAILY 5 Days Qty: 10 0RF albuterol sulfate 2.5 mg /3 mL (0.083 %) solution for nebulization 2.5 mg inhalation Q4-6H PRN (Reason: shortness of breath or wheezing) Qty: 90 0RF prednisone 20 mg tablet 40 mg PO DAILY Qty: 10 0RF albuterol sulfate [ProAir HFA] 90 mcg/actuation HFA aerosol inhaler 2 puff inhalation Q4-6H PRN (Reason: shortness of breath or wheezing) Qty: 8.5 0RF prednisone 50 mg tablet 50 mg PO DAILY 5 Days Qty: 5 0RF albuterol sulfate 2.5 mg /3 mL (0.083 %) solution for nebulization 2.5 mg inhalation Q6H Qty: 75 0RF albuterol sulfate 90 mcg/actuation aerosol powdr breath activated 2 inh inhalation Q4-6H PRN (Reason: shortness of breath or wheezing) Qty: 1 0RF prednisone 20 mg tablet 40 mg PO DAILY 5 Days Qty: 10 0RF benzonatate 200 mg capsule 200 mg PO TID PRN (Reason: cough) 5 Days Qty: 15 0RF azithromycin 250 mg tablet See Rx Instructions .ROUTE .COMPLEX Qty: 6 0RF Rx Instructions: For 250 mg dose pack: take 500 mg today (day 1), then 250 mg for 4 days (days 2-5) budesonide-formoterol [Symbicort] 160-4.5 mcg/actuation HFA aerosol inhaler 1 puff inhalation BID Qty: 10.2 0RF prednisone 50 mg tablet 50 mg PO DAILY Qty: 4 0RF prednisone 20 mg tablet 40 mg PO DAILY 5 Days Qty: 10 0RF Print Language: Slovak
[2024-09-07 00:15] LABS: MANUAL DIFF FLAG NO
[2024-09-07] MEDS: Albuterol Sulfate 2.5 MG, Albuterol/Iprat 2.5/0.5MG 3 ML 3 ML INHALE (00:15)
[2024-09-07 00:16] LABS: Basophils Absolute Auto 0.2 X10*3/uL (0.0-0.2); Basophils Percent Auto 1.3 % (0-2); Eosinophils Absolute Auto 1.5 X10*3/uL (0.0-0.4); Eosinophils Percent Auto 9.6 % (0-4); Hematocrit 40.4 % (42.0-52.0); Hemoglobin 14.7 g/dl (14.0-18.0); Imm Gran Pct Auto 0.6 % (0.0-0.4); Lymphocytes Absolute Auto 3.6 X10*3/uL (1.2-4.9); Lymphocytes Percent Auto 22.8 % (20-40); Mean Corpuscular HGB Conc 36.4 g/dl (31.0-36.0); Mean Corpuscular Hemoglobin 28.3 pg (27.0-33.0); Mean Corpuscular Volume 77.8 fL (80.0-98.0); Mean Platelet Volume 9.3 fL (9.4-12.4); Monocytes Percent Auto 6.7 % (2-11); Neutrophils Absolute Auto 9.2 x10*3/uL (2.0-8.3); Platelet Count 360 X10*3/uL (160-400); Red Blood Count 5.19 X10*6/uL (4.60-5.80); White Blood Count 15.6 X10*3/uL (4.8-10.8)
[2024-09-07 00:20] VITALS: PULSE 109; RESP 22; O2SAT 92
[2024-09-07] MEDS: Magnesium Sulfate/H2O 2 GM/50 ML PIGGYBACK IV (00:22)
[2024-09-07] MEDS: methylPREDNISolone Sod Succ 125 MG/2 ML VIAL IVPUSH (00:22)
[2024-09-07 00:33] LABS: Anion Gap 15 (12-20); Blood Urea Nitrogen 10 mg/dL (9-16); Calcium 9.1 mg/dL (8.4-10.2); Carbon Dioxide 19 mmol/L (22-29); Chloride 109 mmol/L (96-108); Creatinine Clr Calc Pharmacy 146.4; Estimated Glomerular Filt Rate > 60; Glucose Random 136 mg/dL (60-115); Potassium 4.6 mmol/L (3.3-5.1); Sodium 138 mmol/L (135-145)
[2024-09-07 00:53] LABS: Influenza A PCR NEGATIVE (Negative); Influenza B PCR NEGATIVE (Negative); Resp Syncy Virus RNA Qual PCR NEGATIVE (Negative); SARS COV2 PCR INHOUSE NEGATIVE (Negative)
--- NOTE | 2024-09-07 01:25 | PM.IMHP ---
History of Present Illness Date of Service: 09/07/24 Attending physician on admission: Aleksandra Oroscoes Chief Complaint: shortness on breath Ian Garza is a 29 years old man with past medical history significant for asthma and obesitypresents to the emergency department for the 2nd time complaining of worsening shortness on breath, wheezing and cough. He denied chest pain, fever, chills, headache, sore throat, palpitations or dizziness. He did not report any acute gastrointestinal symptoms. He has used Symbicort in the past in addition to rescue inhaler. Denied tobacco smoking, marijuana smoking illicit drug use or tobacco smoking. He has never required endotracheal intubation/ mechanical ventilation. In the ED, he was found to have slight tachycardia, slight tachypnea are normal blood pressure. Oxygen saturation is normal on room air and not requiring any supplemental oxygen at this time. Blood workup was remarkable for leukocytosis of 15.6. Hemoglobin is 14.7 and platelets 360. There are no significant electrolyte imbalances. Renal function is normal. Viral testing for COVID-19, influenza and RSV. CXR todayshowed showed bilateral peribronchial thickening without consolidation or infiltrates. ED tx: Solu-Medrol 125 mg IV, albuterol x3 Review of Systems Review of Systems: All 12 systems were reviewed and normal except as noted in HPI. [facility] Medical History Asthma Pneumonia due to 2019 novel coronavirus Asthma Family History Mother Asthma Social History Household Members: None Housing: House Do you presently have visiting nurse or other home services: No Alcohol intake: never Patient Tobacco Use Status: Never used Tobacco Smoked in Last 30 Days: No Use of substances other than those prescribed or required for medical reasons: No Advance Directives: No Advance Directives Information Provided: Yes Do you have a plan to hurt others: No Plan service: No Current occupational status: unemployed Meds Allergies Allergy/AdvReac Type Severity Reaction Status Date / Time shellfish derived Allergy Severe SHORTNESS Verified 09/06/24 23:52 OF BREATH, SWELLING shrimp Allergy Severe ANAPHYLAXIS Verified 09/06/24 23:52 Active Medications: Current Medications Acetaminophen (Acetaminophen 325 Mg Tablet) 975 mg PO Q6H PRN PRN Reason: Pain, Mild 1-3,fever,headache Albuterol Sulfate (Albuterol Sulfate (0.083%) 2.5 Mg/3 Ml Vial.Neb) 2.5 mg INHALE Q2H PRN PRN Reason: Shortness of Breath/Wheezing Albuterol/Ipratropium (Albuterol/Iprat 2.5/0.5mg 3 Ml Ampul.Neb) 3 ml INHALE RQ4H WHILE AWAKE [facility] Doxycycline Monohydrate (Doxycycline Monohydrate 100 Mg Capsule) 100 mg PO Q12H [facility] Enoxaparin Sodium (Enoxaparin Sodium 40 Mg/0.4 Ml Syringe) 40 mg SUBCUT Q24H [facility] Magnesium Sulfate (Magnesium Sulfate/H2o) 2 gm in 50 mls @ 25 mls/hr IV ONCE ONE Stop: 09/07/24 01:53 Last Admin: 09/07/24 00:22 Dose: 25 mls/hr Lorazepam (Lorazepam 0.5 Mg Tablet) 0.5 mg PO Q6H PRN PRN Reason: Anxiety Melatonin (Melatonin 3 Mg Tablet) 6 mg PO BEDTIME PRN PRN Reason: Insomnia Methylprednisolone Sodium Succinate (Methylprednisolone Sod Succ 40 Mg/Ml Vial) 40 mg IVPUSH BID [facility] Sodium Chloride (0.9 % Sodium Chloride Flush 3 Ml Syringe) 3 ml IVFLUSH QSHIFT [facility] Home Medications ?Medication ?Instructions ?Recorded ?Confirmed ?Last Taken ?Type albuterol sulfate 2.5 mg/3 mL 2.5 mg inhalation Q6H PRN wheezing 10/08/23 10/08/23 Unknown History (0.083 %) solution for nebulization albuterol sulfate 90 mcg/actuation 2 puff inhalation Q4-6H PRN 10/08/23 10/08/23 10/08/23 History aerosol inhaler wheezing fluticasone 500 mcg-salmeterol 50 1 inh inhalation BID 10/08/23 10/08/23 3 Weeks Ago History mcg/dose blistr powdr for ~09/17/23 inhalation (Advair Diskus) montelukast 10 mg tablet 10 mg PO DAILY 10/08/23 10/08/23 10/07/23 History Physical Exam Vital Signs and Narrative: Vital Signs: Last Vital Signs Temp 98.0 F 09/06/24 23:51 Pulse 109 H 09/07/24 00:20 Resp 22 H 09/07/24 00:20 Pulse Ox 92 09/06/24 23:51 O2 Del Method Room Air 09/06/24 23:51 BMI result Body Mass Index 38.3 Constitutional - Awake and Alert, No apparent distress. Anxious. Pleasant. Obese. HEENT - PERRL, EOMI . Normal oropharynx. Heart - tachycardic, normal rhythm, no murmurs. Lungs - Normal lung expansion, Normal respiratory effort, No respiratory distress. Tachypnea mild expiratory wheezes. No rhonchi. No crackles. Abdomen - NT / ND; +BS; No rebound or guarding Extremities - no calf tenderness bilaterally, no swelling Musculoskeletal - Normal inspection, normal ROM Skin - Warm/Dry Neurological - Alert & oriented x3. No focal weakness grossly noted. Normal speech. Psychological - Appropriate affect Results Labs 09/07/24 00:10 09/07/24 00:10 Labs: Laboratory Results - last 24 hr 09/07/24 00:10 MCV 77.8 L MCH 28.3 MCHC 36.4 H RDW 12.0 Plt Count 360 MPV 9.3 L Immature Gran % (Auto) 0.6 H Neut % (Auto) 59.0 Lymph % (Auto) 22.8 [place] % (Auto) 6.7 Eos % (Auto) 9.6 H Baso % (Auto) 1.3 Lymph # (Auto) 3.6 [place] # (Auto) 1.0 Eos # (Auto) 1.5 H Baso # (Auto) 0.2 Abs Immat Gran (auto) 0.10 H Absolute Neuts (auto) 9.2 H Absolute Nucleated RBC 0.000 Nucleated RBC % (auto) 0.0 Anion Gap 15 Estim Creat Clear Calc 146.4 Estimated GFR > 60 Random Glucose 136 H Calcium 9.1 D Influenza Type A (PCR) NEGATIVE Influenza Type B (PCR) NEGATIVE RSV RNA Qual (PCR) NEGATIVE SARS-CoV-2 RNA (RT-PCR) NEGATIVE Assessment and Plan (1) Asthma with acute exacerbation: Qualifiers: Asthma severity: severe Asthma persistence: persistent Qualified Code(s): J45.51 - Severe persistent asthma with (acute) exacerbation Status: Acute (2) Obesity: Qualifiers: Obesity type: due to excess calories Obesity classification: adult class 2 (BMI 35 - 39.9) Serious obesity comorbidity presence: with serious comorbidity Status: Acute Plan Ian Garza is a 29 y/o man with PMHx significant for asthma with frequent exacerbation admitted with: Acute asthma exacerbation, persists with significant shortness on breath and bronchospasm despite multiple breathing treatments and IV steroids. Admit to hospitalist service. Telemetry. Pulse oximetry. Supplemental O2 as needed to keep O2 sats > 90%. Continue bronchodilator therapy, empiric IV antibiotic therapy with doxycycline and IV steroids. Leukocytosis, tachypnea and tachycardia likely secondary to above and recent use of steroids, no severe sepsis. continue to monitor Obesity. BMI 38.3 kg/m2. encourage weight loss. DVT prophylaxis: Lovenox, early ambulation Code status: Full Patient will need hospitalization for at least 2 midnights for acute asthma exacerbation with persistent bronchospasm treatment with bronchodilator therapy, IV steroids and empiric IV antibiotic therapy as well as supplemental oxygen as needed. Quality Stroke Does the patient have a stroke diagnosis?: No VTE Prior VTE?: No VTE Risk Level:: Medical - moderate - high VTE Device Contraindication: Treatment Not Indicated VTE Drug Contraindication: N/A - Med Ordered
[2024-09-07] MEDS: Doxycycline Monohydrate 100 MG CAPSULE PO ×2 (02:20→08:27)
[2024-09-07] MEDS: Albuterol/Iprat 2.5/0.5MG 3 ML AMPUL.NEB INHALE ×2 (03:53→10:58)
[2024-09-07 03:54] VITALS: PULSE 97
[2024-09-07 05:39] VITALS: BP 154/99; PULSE 101; RESP 22; TEMP 37.1; O2SAT 96
[2024-09-07 06:10] LABS: MANUAL DIFF FLAG NO
[2024-09-07 06:11] LABS: Basophils Absolute Auto 0.1 X10*3/uL (0.0-0.2); Basophils Percent Auto 0.9 % (0-2); Eosinophils Absolute Auto 0.1 X10*3/uL (0.0-0.4); Eosinophils Percent Auto 0.5 % (0-4); Hematocrit 42.8 % (42.0-52.0); Hemoglobin 14.9 g/dl (14.0-18.0); Imm Gran Pct Auto 0.7 % (0.0-0.4); Lymphocytes Absolute Auto 1.7 X10*3/uL (1.2-4.9); Lymphocytes Percent Auto 11.9 % (20-40); Mean Corpuscular HGB Conc 34.8 g/dl (31.0-36.0); Mean Corpuscular Hemoglobin 27.6 pg (27.0-33.0); Mean Corpuscular Volume 79.4 fL (80.0-98.0); Mean Platelet Volume 9.4 fL (9.4-12.4); Monocytes Absolute Auto 0.2 X10*3/uL (0.1-1.2); Neutrophils Absolute Auto 12.3 x10*3/uL (2.0-8.3); Platelet Count 360 X10*3/uL (160-400); Red Blood Count 5.39 X10*6/uL (4.60-5.80); Red Cell Distribution Width 12.1 % (11.0-16.0); White Blood Count 14.4 X10*3/uL (4.8-10.8)
[2024-09-07 06:28] LABS: Anion Gap 14 (12-20); Blood Urea Nitrogen 11 mg/dL (9-16); Carbon Dioxide 21 mmol/L (22-29); Chloride 106 mmol/L (96-108); Creatinine Clr Calc Pharmacy 144.7; Estimated Glomerular Filt Rate > 60; Glucose Random 180 mg/dL (60-115); Potassium 4.9 mmol/L (3.3-5.1); Sodium 136 mmol/L (135-145)
[2024-09-07] MEDS: 0.9 % Sodium Chloride Flush 3 ML SYRINGE IVFLUSH (08:26)
[2024-09-07] MEDS: methylPREDNISolone Sod Succ 40 MG/ML VIAL IVPUSH (08:27)
[2024-09-07] MEDS: Enoxaparin Sodium 40 MG/0.4 ML SYRINGE SUBCUT (08:27)
--- NOTE | 2024-09-07 08:32 | PC.NURSE ---
Care of Pt assumed at change of shift. Pt noted to be resting quietly. Morning med pass completed. Breakfast tray provided, Pt reports he is not feeling hungry at this time. Pt offers no complaints at this time. Pt informed he will be transitioning to his inpatient room assignment shortly.
[2024-09-07 09:54] VITALS: BP 145/92; PULSE 93; RESP 18; TEMP 36.8; O2SAT 94
[2024-09-07 09:57] VITALS: BMI 40.5
--- NOTE | 2024-09-07 10:28 | PHA.MEDREC ---
Pharmacy Consult ? Medication Reconciliation Pharmacy has completed the medication reconciliation. Spoke to pt to confirm meds.
[2024-09-07 11:00] VITALS: PULSE 94; RESP 18; O2SAT 95
[2024-09-07 11:14] VITALS: BP 138/83; PULSE 99; RESP 18; TEMP 36.2; O2SAT 92
--- NOTE | 2024-09-07 11:53 | P.DS_ITS ---
DS: Providers Provider Date of Service: 09/07/24 Date of admission: 09/07/24 01:20 Date of discharge: 09/07/24 Primary care physician: Unknown Physician DS: Diagnosis Discharge Diagnosis (1) Mild intermittent asthma with (acute) exacerbation: Status: Acute (2) Morbid obesity: Status: Acute DS: Summary Hospital Course Hospital Course: From the history and physical by the admitting hospitalist, Aleksandra Angel MD, 09/07/24: Ian Garza is a 29 years old man with past medical history significant for asthma and obesitypresents to the emergency department for the 2nd time complaining of worsening shortness on breath, wheezing and cough. He denied chest pain, fever, chills, headache, sore throat, palpitations or dizziness. He did not report any acute gastrointestinal symptoms. He has used Symbicort in the past in addition to rescue inhaler. Denied tobacco smoking, marijuana smoking illicit drug use or tobacco smoking. He has never required endotracheal intubation/ mechanical ventilation. In the ED, he was found to have slight tachycardia, slight tachypnea are normal blood pressure. Oxygen saturation is normal on room air and not requiring any supplemental oxygen at this time. Blood workup was remarkable for leukocytosis of 15.6. Hemoglobin is 14.7 and platelets 360. There are no significant electrolyte imbalances. Renal function is normal. Viral testing f or COVID-19, influenza and RSV. CXR todayshowed showed bilateral peribronchial thickening without consolidation or infiltrates. ED tx: Solu-Medrol 125 mg IV, albuterol x3 He was admitted to the hospitalist service and improved rapidly. He was discharged on prednisone and doxycycline for 5 days and will follow up with his primary care provider in 1-2 weeks. Time Attestation Discharge Coordination Time (in mins): 35 Quality: Safe Use of Opioids Does Pt have an Active Cancer Diagnosis on the Problem List?: No Quality: Stroke Does the patient have a stroke diagnosis?: No Physical Exam Vital Signs: Vital Signs: Last Vital Signs Temp 97.1 F 09/07/24 11:14 Pulse 99 09/07/24 11:14 Resp 18 09/07/24 11:14 BP 138/83 09/07/24 11:14 Pulse Ox 92 09/07/24 11:14 O2 Del Method Room Air 09/07/24 11:14 O2 Flow Rate 2 09/07/24 05:39 BMI result Body Mass Index 40.5 Gen: in no acute distress HEENT: sclera anicteric, moist mucus membranes Neck: supple Lungs: clear to auscultation bilaterally Heart: regular rate and rhythm, no murmurs Abd: soft, non-tender, non-distended, obese Ext: no edema Skin: warm/well-perfused Neuro: alert and oriented x3, no focal findings Psych: appropriate affect DS: Data Data Completed and Pending Completed studies during hospitalization [Text1]: Laboratory Results WBC 14.4 X10*3/uL (4.8-10.8) H 09/07/24 06:03 RBC 5.39 X10*6/uL (4.60-5.80) 09/07/24 06:03 Hgb 14.9 g/dl (14.0-18.0) 09/07/24 06:03 Hct 42.8 % (42.0-52.0) 09/07/24 06:03 MCV 79.4 fL (80.0-98.0) L 09/07/24 06:03 MCH 27.6 pg (27.0-33.0) 09/07/24 06:03 MCHC 34.8 g/dl (31.0-36.0) 09/07/24 06:03 RDW 12.1 % (11.0-16.0) 09/07/24 06:03 Plt Count 360 X10*3/uL (160-400) 09/07/24 06:03 MPV 9.4 fL (9.4-12.4) 09/07/24 06:03 Immature Gran % (Auto) 0.7 % (0.0-0.4) H 09/07/24 06:03 Neut % (Auto) 85.0 % (45-73) H 09/07/24 06:03 Lymph % (Auto) 11.9 % (20-40) L 09/07/24 06:03 Carson % (Auto) 1.0 % (2-11) L 09/07/24 06:03 Eos % (Auto) 0.5 % (0-4) 09/07/24 06:03 Baso % (Auto) 0.9 % (0-2) 09/07/24 06:03 Lymph # (Auto) 1.7 X10*3/uL (1.2-4.9) 09/07/24 06:03 Carson # (Auto) 0.2 X10*3/uL (0.1-1.2) 09/07/24 06:03 Eos # (Auto) 0.1 X10*3/uL (0.0-0.4) 09/07/24 06:03 Baso # (Auto) 0.1 X10*3/uL (0.0-0.2) 09/07/24 06:03 Abs Immat Gran (auto) 0.10 X10*3/uL (0.00-0.03) H 09/07/24 06:03 Absolute Neuts (auto) 12.3 x10*3/uL (2.0-8.3) H 09/07/24 06:03 Absolute Nucleated RBC 0.000 X10*3/uL (0.0-0.012) 09/07/24 06:03 Nucleated RBC % (auto) 0.0 /100WBC (0.0-0.2) 09/07/24 06:03 Sodium 136 mmol/L (135-145) 09/07/24 06:03 Potassium 4.9 mmol/L (3.3-5.1) 09/07/24 06:03 Chloride 106 mmol/L (96-108) 09/07/24 06:03 Carbon Dioxide 21 mmol/L (22-29) L 09/07/24 06:03 Anion Gap 14 (12-20) 09/07/24 06:03 BUN 11 mg/dL (9-16) 09/07/24 06:03 Creatinine 0.83 mg/dL (0.5-1.4) 09/07/24 06:03 Estim Creat Clear Calc 144.7 09/07/24 06:03 Estimated GFR > 60 09/07/24 06:03 Random Glucose 180 mg/dL (60-115) H 09/07/24 06:03 Calcium 9.0 mg/dL (8.4-10.2) 09/07/24 06:03 Influenza Type A (PCR) NEGATIVE (Negative) 09/07/24 00:10 Influenza Type B (PCR) NEGATIVE (Negative) 09/07/24 00:10 RSV RNA Qual (PCR) NEGATIVE (Negative) 09/07/24 00:10 SARS-CoV-2 RNA (RT-PCR) NEGATIVE (Negative) 09/07/24 00:10 Discharge Plan Discharge Anticipated Discharge Date/Time: 09/07/24 11:45 Patient Disposition: Home, Self-Care Discharge Diagnosis: asthma exacerbation Referrals: [facility] [Provider Group] - 1 Week Physician,Unknown J [Primary Care Provider] - 1 Week Discharge Medications: New albuterol sulfate 2.5 mg /3 mL (0.083 %) Solution For Nebulization 2.5 mg inhalation Q4H PRN (Reason: Shortness Of Breath/Wheezing) Qty: 50 0RF doxycycline monohydrate 100 mg Capsule 100 mg PO BID Qty: 10 0RF prednisone 20 mg tablet 40 mg PO DAILY Qty: 10 0RF Continued (DME) nebulizer and compressor Device See Rx Instructions .Route Qty: 1 0RF Rx Instructions: As directed (DME) nebulizers [Aeroneb Go Nebulizer] Misc See Rx Instructions .Route Qty: 1 0RF Rx Instructions: As directed albuterol sulfate 90 mcg/actuation HFA aerosol inhaler 1 inh inhalation QID PRN (Reason: shortness of breath or wheezing) Qty: 6.7 0RF Discharge Orders: Discharge Order (Routine); Ordered 09/07/24 Ordered By: Faith Santiago Diet: Advance to usual diet Activity on Discharge: As tolerated Stand Alone Forms: Patient Portal Discharge page Print Language: Kinyarwanda Care Plan Goals: recovery from asthma Health Concerns: asthma exacerbation Plan of Treatment: prednisone 40 mg daily for 5 days doxycycline 100 mg twice daily for 5 days albuterol nebulizer or inhaler for rescue Please follow up with your primary care doctor within 1 week. Return to the hospital if you experience recurrent or worsening symptoms. Assessment: See Discharge Summary.
--- NOTE | 2024-09-07 12:22 | MHC.CM.PN ---
Pt discharged prior to being seen by this CM, he was discharged home self-care.
== END 2024-09-07 12:16 | disposition home or self-care (01) | DRG 141 ==
LOC: HO.ED 09-07 01:10 → HO.EDOVER 09-07 01:25 → HO.IMC 09-07 07:41
PROVIDERS: Admitting Provider Internal Medicine; Emergency Provider Emergency Medicine; Visit Provider Family Medicine
DX: J45.51 Severe persistent asthma with (acute) exacerbation (principal); E66.01 Morbid (severe) obesity due to excess calories; Z20.822 Contact with and (suspected) exposure to COVID-19; Z68.41 Body mass index [BMI] 40.0-44.9, adult; Z71.3 Dietary counseling and surveillance
CPT/HCPCS: 0241U; 36415; 71045; 80048; 85025; 94640; 99285; J1650; J2919; J3475

== ENCOUNTER → 2024-09-07 01:20 | Outpatient (BNV) | payer OTHER, SELFPAY | PROVIDERS: Admitting Provider Internal Medicine; Emergency Provider Emergency Medicine; Visit Provider Internal Medicine | DX: J45.51 Severe persistent asthma with (acute) exacerbation (principal); E66.9 Obesity, unspecified; J45.21 Mild intermittent asthma with (acute) exacerbation; E66.01 Morbid (severe) obesity due to excess calories | CPT/HCPCS: 99236; 99499 ==

== ENCOUNTER 2024-09-23 18:19 | Emergency (ER) | payer OTHER, SELFPAY ==
[2024-09-23 18:27] VITALS: BP 142/83; PULSE 94; RESP 20; TEMP 37; O2SAT 94; BMI 38.3
--- NOTE | 2024-09-23 18:31 | ED_ITS ---
HPI - Asthma General Chief Complaint: Asthma Stated Complaint: sudden difficulty breathing Time Seen by Provider: 09/23/24 18:35 Source: patient, RN notes reviewed and old records reviewed Mode of arrival: ambulatory Limitations: no limitations History of Present Illness ED Provider: Carolina NORMAN Narrative: 29-year-old male with past medical history significant for asthma, obesity presents for evaluation of shortness of breath. The patient reports that his symptoms seemed to worsen about an hour ago. He had no improvement with his inhalers at home He states this feels like his typical asthma with chest tightness pain He denies any fevers, chills or sick contacts No leg swelling. No other complaints or concerns at this time Related Data Previous Rx's ?Medication ?Instructions ?Recorded nebulizer and compressor #1 ea 09/15/21 nebulizers (Aeroneb Go Nebulizer) #1 ea 04/18/22 albuterol sulfate 2.5 mg/3 mL 2.5 mg (3 mL) inhalation Q4H PRN 09/07/24 (0.083 %) solution for nebulization Shortness Of Breath/Wheezing #50 ea albuterol sulfate 90 mcg/actuation 1 inh inhalation QID PRN shortness 09/07/24 aerosol inhaler of breath or wheezing #6.7 grams doxycycline monohydrate 100 mg 100 mg PO BID #10 caps 09/07/24 capsule prednisone 20 mg tablet 40 mg (2 x 20 mg) PO DAILY #10 tabs 09/07/24 prednisone 20 mg tablet 40 mg (2 x 20 mg) PO DAILY #10 tabs 09/23/24 Allergies Allergy/AdvReac Type Severity Reaction Status Date / Time shellfish derived Allergy Severe SHORTNESS Verified 09/23/24 18:30 OF BREATH, SWELLING shrimp Allergy Severe ANAPHYLAXIS Verified 09/23/24 18:30 Review of Systems Constitutional: Constitutional: Denies body ache(s), Denies chills and Denies fever(s) ENT: Denies dizziness and Denies dry mouth Cardiovascular: Cardiovascular: Denies chest pain and Reports dyspnea Respiratory: Respiratory: Reports cough, Reports dyspnea and Reports wheezing Gastrointestinal: Gastrointestinal: Denies abdominal pain, Denies nausea and Denies vomiting Musculoskeletal: Musculoskeletal: Denies back pain Integumentary/Breasts: Skin/Breast: Denies rash Neurologic: Denies dizziness Allergic/Immunologic: Allergic/Immunologic: Reports wheezing PMFSH Past Medical History Medical History Asthma Pneumonia due to 2019 novel coronavirus Asthma Family History Family History Mother Asthma Social History Social History Household Members: None Housing: House Do you presently have visiting nurse or other home services: No Alcohol intake: never Patient Tobacco Use Status: Never used Tobacco Advance Directives: No Advance Directives Information Provided: Yes Do you have a plan to hurt others: No Plan service: No Current occupational status: unemployed Physical Exam Vital Signs: Vital Signs: Last Vital Signs Temp 98.6 F 09/23/24 18:27 Pulse 93 09/23/24 18:48 Resp 16 09/23/24 18:48 BP 142/83 H 09/23/24 18:27 Pulse Ox 94 09/23/24 18:27 O2 Del Method Room Air 09/23/24 18:27 BMI result Body Mass Index 38.3 Const: General: healthy appearing, comfortable, no acute distress, alert and awake Nutritional Appearance: well nourished Orientation/consciousness: patient oriented x3 HEENT: Head: Yes normocephalic and Yes atraumatic Eyes: Eyelids: Yes eyelids normal Conjunctivae: conjunctivae normal Sclerae: sclerae normal Corneas: corneas normal Pupils: Equal, round and reactive pupils present EOM: EOMs intact bilaterally Neck: Neck: Yes full ROM Resp: Effort & Inspection: normal respiratory effort, able to speak in complete sentences and not labored Auscultation: wheezes (Mild diffuse expiratory wheeze.) Skin: General skin exam: elasticity normal Neuro: General: patient oriented x3 Cranial nerves: Yes Equal, round and reactive pupils present and Yes Bilaterally intact EOM present Cognition (Neuro): normal cognition Course Reevaluation(s) Reevaluation #1: Patient reports feeling better after his nebulizer treatment and prednisone. Plan for repeat vitals and likely discharge Time: 19:39 Medications Administered Discontinued Medications Generic Name Dose Route Start Last Admin Trade Name Freq PRN Reason Stop Dose Admin Albuterol/Ipratropium 3 ml 09/23/24 18:48 09/23/24 18:50 Albuterol/Iprat 2.5/0.5mg 3 Ml Ampul.Neb INHALE 09/23/24 18:49 3 ml ONCE ONE Administration Prednisone 60 mg 09/23/24 18:33 09/23/24 18:48 Prednisone 20 Mg Tablet PO 09/23/24 18:34 60 mg ONCE ONE Administration Medical Decision Making Medical Decision Making MDM Narrative: 29-year-old male presents for evaluation of shortness of breath. He does have a history of asthma. He appears to be having a mild asthma exacerbation. I discussed possible workup with the patient including chest x-ray and flu testing. The patient has 4 chest x-rays last month alone. He declines additional chest x-ray. He also denies viral testing at this time as his symptoms are consistent with his typical asthma exacerbation. We will treat with prednisone and bronchodilators Differential Diagnosis Differential Diagnoses: The differential diagnosis associated with the presentation includes Asthma exacerbation Bronchitis Pneumonia Influenza Discharge Plan Discharge Clinical Impression: Acute asthma exacerbation Patient Disposition: Home, Self-Care Instructions: Asthma (ED) Additional Instructions: You were treated with prednisone and albuterol. Take prednisone 40 mg daily for the next 4 days starting tomorrow as your 1st dose was given in the ER. You may continue your inhalers Follow-up with your primary doctor, return for new or worsening symptoms Prescriptions: New prednisone 20 mg tablet 40 mg PO DAILY Qty: 10 0RF No Action (DME) nebulizer and compressor Device See Rx Instructions .Route Qty: 1 0RF Rx Instructions: As directed (DME) nebulizers [Aeroneb Go Nebulizer] Misc See Rx Instructions .Route Qty: 1 0RF Rx Instructions: As directed albuterol sulfate 2.5 mg /3 mL (0.083 %) Solution For Nebulization 2.5 mg inhalation Q4H PRN (Reason: Shortness Of Breath/Wheezing) Qty: 50 0RF doxycycline monohydrate 100 mg Capsule 100 mg PO BID Qty: 10 0RF prednisone 20 mg tablet 40 mg PO DAILY Qty: 10 0RF albuterol sulfate 90 mcg/actuation HFA aerosol inhaler 1 inh inhalation QID PRN (Reason: shortness of breath or wheezing) Qty: 6.7 0RF Print Language: Taiwanese
[2024-09-23 18:48] VITALS: PULSE 93; RESP 16; O2SAT 93
[2024-09-23] MEDS: predniSONE 20 MG TABLET 60 MG PO (18:48)
[2024-09-23] MEDS: Albuterol/Iprat 2.5/0.5MG 3 ML AMPUL.NEB INHALE (18:50)
[2024-09-23 19:52] VITALS: BP 146/78; PULSE 92; RESP 19; TEMP 36.9; O2SAT 96
[2024-09-23 20:20] VITALS: BP 146/78; PULSE 92; RESP 19; TEMP 36.9; O2SAT 96
== END 2024-09-23 20:21 | disposition home or self-care (01) ==
PROVIDERS: Emergency Provider Emergency Medicine
DX: J45.901 Unspecified asthma with (acute) exacerbation (principal); R06.02 Shortness of breath
CPT/HCPCS: 94640; 99283; 99284

== ENCOUNTER 2024-09-28 18:53 | Emergency (ER) | payer OTHER, SELFPAY ==
--- NOTE | ~2024-09-28 | XR_ITS ---
CLINICAL HISTORY: SOB 2 views chest Comparison: CR - XR CHEST 1V - 09/06/24 23:59 EST Findings: Cardiac and mediastinal contours are normal. Mild interstitial prominence with scattered peribronchial thickening. No focal consolidation. No effusion. No pneumothorax. No acute osseous finding. Impression: Mild interstitial prominence with scattered peribronchial thickening, similar to prior. No focal consolidation. This document has been electronically signed by: Jarad Segundo MD on 09/28/2024 19:39:55
[2024-09-28 19:03] VITALS: BP 126/77; PULSE 104; RESP 18; TEMP 36.6; O2SAT 93; BMI 42.2
--- NOTE | 2024-09-28 19:04 | ED.GENADULT ---
HPI - General Adult General Chief complaint: Dyspnea Stated complaint: asthma Time Seen by Provider: 09/28/24 22:22 Source: patient, RN notes reviewed and old records reviewed Mode of arrival: ambulatory Limitations: no limitations History of Present Illness ED Provider: Carolina NORMAN narrative: 29-year-old male past medical history significant for asthma presents for evaluation of shortness of breath. Patient was seen here 5 days ago and treated for asthma with a nebulizer and discharged with prednisone. He reports that he has been doing well up until today. He believes the cold weather is contributing to his worsening shortness of breath. He states that he sees pulmonology next week and his PCP the following month He currently only has albuterol rescue inhaler Denies any fevers, chills He denies any chest pain Related Data Previous Rx's ?Medication ?Instructions ?Recorded nebulizer and compressor #1 ea 09/15/21 nebulizers (Aeroneb Go Nebulizer) #1 ea 04/18/22 albuterol sulfate 2.5 mg/3 mL 2.5 mg (3 mL) inhalation Q4H PRN 09/07/24 (0.083 %) solution for nebulization Shortness Of Breath/Wheezing #50 ea albuterol sulfate 90 mcg/actuation 1 inh inhalation QID PRN shortness 09/07/24 aerosol inhaler of breath or wheezing #6.7 grams doxycycline monohydrate 100 mg 100 mg PO BID #10 caps 09/07/24 capsule prednisone 20 mg tablet 40 mg (2 x 20 mg) PO DAILY #10 tabs 09/07/24 prednisone 20 mg tablet 40 mg (2 x 20 mg) PO DAILY #10 tabs 09/23/24 azithromycin 250 mg tablet See Rx Instructions PO .COMPLEX #6 09/28/24 tabs Allergies Allergy/AdvReac Type Severity Reaction Status Date / Time shellfish derived Allergy Severe SHORTNESS Verified 09/28/24 19:07 OF BREATH, SWELLING shrimp Allergy Severe ANAPHYLAXIS Verified 09/28/24 19:07 Review of Systems Constitutional: Constitutional: Denies body ache(s), Denies chills, Denies fever(s) and Denies headache(s) ENT: Denies vertigo, Denies dizziness and Denies headache(s) Cardiovascular: Cardiovascular: Denies chest pain and Reports dyspnea Respiratory: Respiratory: Denies cough, Reports dyspnea and Reports wheezing Gastrointestinal: Gastrointestinal: Denies abdominal pain, Denies nausea and Denies vomiting Musculoskeletal: Musculoskeletal: Denies back pain Neurologic: Denies vertigo, Denies dizziness and Denies headache(s) Allergic/Immunologic: Allergic/Immunologic: Reports wheezing PMFSH Past Medical History Medical History Asthma Pneumonia due to 2019 novel coronavirus Asthma Family History Family History Mother Asthma Social History Social History Household Members: None Housing: House Do you presently have visiting nurse or other home services: No Alcohol intake: never Patient Tobacco Use Status: Never used Tobacco Advance Directives: No Advance Directives Information Provided: Yes Do you have a plan to hurt others: No Plan service: No Current occupational status: unemployed Physical Exam ED Vital Signs: Vital Signs - 24 hr 09/28/24 19:03 09/28/24 22:56 09/28/24 23:31 Temperature 97.9 F 97.9 F Pulse Rate 104 H 100 95 Respiratory Rate 18 20 18 Blood Pressure 126/77 155/75 H Pulse Oximetry 93 97 Oxygen Delivery Method Room Air Room Air BMI result Body Mass Index 42.2 Const General: healthy appearing, comfortable, no acute distress, alert and awake Nutritional Appearance: well nourished Orientation/consciousness: patient oriented x3 HENMT Head: Yes normocephalic and Yes atraumatic Eyes Eyelids: Yes eyelids normal Conjunctivae: conjunctivae normal Sclerae: sclerae normal Corneas: corneas normal Pupils: Equal, round and reactive pupils present EOM: EOMs intact bilaterally Neck Neck: Yes full ROM Resp Other: Diffuse expiratory wheeze Effort & Inspection: abnormal respiratory effort, able to speak in complete sentences and not labored Skin General skin exam: elasticity normal Neuro General: patient oriented x3 Cranial nerves: Yes Equal, round and reactive pupils present and Yes Bilaterally intact EOM present Cognition (Neuro): normal cognition Extrem Other: Moving all extremities well without any obvious deformities Course Course Course Narrative: RME performed by Cynthia Deluca PA-C. Patient is a 29 year old assigned male at presenting to the emergency department with increased wheezing / shortness of breath. Patient states he has a history of asthma and feels much more wheezy / short of breath and his albuterol is not working at home. Detailed physical exam and review of systems are deferred to the physician primary care sports medicine. EKG, labs, imaging, swabs ordered. Patient placed back in the waiting room pending room availability and results. Medications Administered Discontinued Medications Generic Name Dose Route Start Last Admin Trade Name Darius PRN Reason Stop Dose Admin Albuterol Sulfate 7.5 mg/ 10 mg 09/28/24 23:24 09/28/24 23:29 Albuterol Sulfate 2.5 mg INHALE 09/28/24 23:25 10 mg ONCE ONE Administration Medical Decision Making Medical Decision Making [facility] Narrative: 29-year-old male presents for evaluation of shortness of breath. Has a history of asthma with frequent ED visits. He was not hypoxic. He had a workup that included labs, chest x-ray, viral swabs and an EKG. His chest x-ray shows bronchitis. He was treated with doxycycline 3 weeks ago and has not been on azithromycin since December. The patient was treated with high-dose nebulizer. I feel is appropriate to discharge the patient with azithromycin as long as he can pass an ambulation trial. He has appropriate follow-up with pulmonology next week Differential Diagnosis Differential Diagnoses: The differential diagnosis associated with the presentation includes Asthma Bronchitis Upper respiratory infection Pneumonia Admission/Observation Consideration of admission/observation: Escalation of care including admission/observation considered Patient was able to pass an ambulation trial Lab Data [facility] Lab Attestation statement: I reviewed the patient's lab results. Mild leukocytosis to 12.4 but the patient was recently on prednisone. No significant anemia. Normal platelet count. No significant electrolyte abnormalities. 09/28/24 19:16 09/28/24 19:16 Labs: Lab Results 09/28/24 Range/Units 19:16 WBC 12.4 H (4.8-10.8) X10*3/uL RBC 5.10 (4.60-5.80) X10*6/uL Hgb 14.5 (14.0-18.0) g/dl Hct 40.7 L (42.0-52.0) % MCV 79.8 L (80.0-98.0) fL MCH 28.4 (27.0-33.0) pg MCHC 35.6 (31.0-36.0) g/dl RDW 11.9 (11.0-16.0) % Plt Count 369 (160-400) X10*3/uL MPV 9.2 L (9.4-12.4) fL Immature Gran % (Auto) 0.3 (0.0-0.4) % Neut % (Auto) 53.6 (45-73) % Lymph % (Auto) 28.4 (20-40) % Dale % (Auto) 5.7 (2-11) % Eos % (Auto) 10.8 H (0-4) % Baso % (Auto) 1.2 (0-2) % Lymph # (Auto) 3.5 (1.2-4.9) X10*3/uL Dale # (Auto) 0.7 (0.1-1.2) X10*3/uL Eos # (Auto) 1.3 H (0.0-0.4) X10*3/uL Baso # (Auto) 0.2 (0.0-0.2) X10*3/uL Abs Immat Gran (auto) 0.04 H (0.00-0.03) X10*3/uL Absolute Neuts (auto) 6.7 (2.0-8.3) x10*3/uL Absolute Nucleated RBC 0.000 (0.0-0.012) X10*3/uL Nucleated RBC % (auto) 0.0 (0.0-0.2) /100WBC Sodium 141 (135-145) mmol/L Potassium 3.8 D (3.3-5.1) mmol/L Chloride 106 (96-108) mmol/L Carbon Dioxide 25 (22-29) mmol/L Anion Gap 14 (12-20) BUN 7 L (9-16) mg/dL Creatinine 0.82 (0.5-1.4) mg/dL Estim Creat Clear Calc 154.4 Estimated GFR > 60 Random Glucose 145 H (60-115) mg/dL Calcium 9.0 (8.4-10.2) mg/dL Magnesium 2.0 (1.6-2.6) mg/dL Total Bilirubin 0.4 (0.0-1.0) mg/dL AST 33 (5-37) U/L ALT 35 (0-40) U/L Alkaline Phosphatase 73 (39-117) U/L Troponin I High Sens < 2.7 (<3.5-35.0) ng/L Total Protein 8.0 (6.5-8.0) g/dL Albumin 4.1 (3.5-5.0) g/dL Influenza Type A (PCR) NEGATIVE (Negative) Influenza Type B (PCR) NEGATIVE (Negative) RSV RNA Qual (PCR) NEGATIVE (Negative) SARS-CoV-2 RNA (RT-PCR) NEGATIVE (Negative) Independent Interpretation I performed an independent interpretation of an: Plain X-Ray (Agree with Radiology interpretation) Radiology Impression Discussion of test interpretation with radiology: I have reviewed the radiologist's reading. Radiologist Impression: Findings: Cardiac and mediastinal contours are normal. Mild interstitial prominence with scattered peribronchial thickening. No focal consolidation. No effusion. No pneumothorax. No acute osseous finding. Impression: Mild interstitial prominence with scattered peribronchial thickening, similar to prior. No focal consolidation. This document has been electronically signed by: Jarad Segundo MD on 09/28/2024 19:39:55 Discharge Plan Discharge Clinical Impression: Bronchitis Asthma Qualifiers: Asthma severity: unspecified severity Asthma persistence: unspecified Asthma complication type: unspecified Qualified Code(s): J45.909 - Unspecified asthma, uncomplicated Patient Disposition: Home, Self-Care Instructions: Asthma (ED), Acute Bronchitis (ED) Additional Instructions: Take the azithromycin as prescribed. Continue to use your albuterol inhaler as needed. Follow up with pulmonology at your scheduled appointment Return for new or worsening symptoms Your blood work was reassuring today. Your x-ray showed bronchitis Prescriptions: New azithromycin 250 mg tablet See Rx Instructions .ROUTE .COMPLEX Qty: 6 0RF Rx Instructions: For 250 mg dose pack: take 500 mg today (day 1), then 250 mg for 4 days (days 2-5) No Action (DME) nebulizer and compressor Device See Rx Instructions .Route Qty: 1 0RF Rx Instructions: As directed (DME) nebulizers [place]Aeroneb Go Nebulizer[place] [facility] [place] Instructions .Route Qty: 1 0RF Rx Instructions: As directed albuterol sulfate 2.5 mg /3 mL (0.083 %) Solution For Nebulization 2.5 mg inhalation Q4H PRN (Reason: Shortness Of Breath/Wheezing) Qty: 50 0RF doxycycline monohydrate 100 mg Capsule 100 mg PO BID Qty: 10 0RF prednisone 20 mg tablet 40 mg PO DAILY Qty: 10 0RF albuterol sulfate 90 mcg/actuation HFA aerosol inhaler 1 inh inhalation QID PRN (Reason: shortness of breath or wheezing) Qty: 6.7 0RF prednisone 20 mg tablet 40 mg PO DAILY Qty: 10 0RF Print Language: Yemeni
--- NOTE | 2024-09-28 19:05 | ECG_ITS ---
Test Reason : SOB Blood Pressure : */* mmHG Vent. Rate : 103 BPM Atrial Rate : 103 BPM P-R Int : 152 ms QRS Dur : 138 ms QT Int : 368 ms P-R-T Axes : 55 40 90 degrees QTcB Int : 482 ms Sinus tachycardia Left bundle branch block Abnormal ECG When compared with ECG of 02-Sep-2024 05:45, No significant change was found Referred By: Cynthia Deluca Electronically Signed By: HUSEYIN DORANTES MD
[2024-09-28 19:21] LABS: MANUAL DIFF FLAG NO
[2024-09-28 19:22] LABS: Basophils Absolute Auto 0.2 X10*3/uL (0.0-0.2); Basophils Percent Auto 1.2 % (0-2); Eosinophils Absolute Auto 1.3 X10*3/uL (0.0-0.4); Eosinophils Percent Auto 10.8 % (0-4); Hematocrit 40.7 % (42.0-52.0); Hemoglobin 14.5 g/dl (14.0-18.0); Imm Gran Abs Auto 0.04 X10*3/uL (0.00-0.03); Imm Gran Pct Auto 0.3 % (0.0-0.4); Lymphocytes Absolute Auto 3.5 X10*3/uL (1.2-4.9); Lymphocytes Percent Auto 28.4 % (20-40); Mean Corpuscular HGB Conc 35.6 g/dl (31.0-36.0); Mean Corpuscular Hemoglobin 28.4 pg (27.0-33.0); Mean Corpuscular Volume 79.8 fL (80.0-98.0); Mean Platelet Volume 9.2 fL (9.4-12.4); Monocytes Absolute Auto 0.7 X10*3/uL (0.1-1.2); Monocytes Percent Auto 5.7 % (2-11); Neutrophils Absolute Auto 6.7 x10*3/uL (2.0-8.3); Neutrophils Percent Auto 53.6 % (45-73); Platelet Count 369 X10*3/uL (160-400); Red Cell Distribution Width 11.9 % (11.0-16.0); White Blood Count 12.4 X10*3/uL (4.8-10.8)
[2024-09-28 19:36] LABS: Albumin Level 4.1 g/dL (3.5-5.0); Alkaline Phosphatase 73 U/L (39-117); Anion Gap 14 (12-20); Aspartate Amino Transferase 33 U/L (5-37); Bilirubin Total 0.4 mg/dL (0.0-1.0); Blood Urea Nitrogen 7 mg/dL (9-16); Carbon Dioxide 25 mmol/L (22-29); Chloride 106 mmol/L (96-108); Creatinine Clr Calc Pharmacy 154.4; Estimated Glomerular Filt Rate > 60; Glucose Random 145 mg/dL (60-115); Potassium 3.8 mmol/L (3.3-5.1); Sodium 141 mmol/L (135-145)
[2024-09-28 19:43] LABS: Troponin-I High Sensitivity < 2.7 ng/L (<3.5-35.0)
[2024-09-28 19:50] LABS: Alanine Aminotransferase 35 U/L (0-40)
[2024-09-28 19:58] LABS: Influenza A PCR NEGATIVE (Negative); Influenza B PCR NEGATIVE (Negative); Resp Syncy Virus RNA Qual PCR NEGATIVE (Negative); SARS COV2 PCR INHOUSE NEGATIVE (Negative)
[2024-09-28 22:56] VITALS: BP 155/75; PULSE 100; RESP 20; TEMP 36.6; O2SAT 97
[2024-09-28] MEDS: Albuterol Sulfate 7.5 MG, Albuterol Sulfate (0.083%) 2.5 MG 10 MG INHALE (23:29)
[2024-09-28 23:31] VITALS: PULSE 95; RESP 18; O2SAT 95
--- NOTE | 2024-09-29 00:11 | MHC.EDTECH ---
Ambulation trial done. o2 steady at 94 to 95. Pulse rate steady at low 120's. RN aware
[2024-09-29 00:14] VITALS: BP 135/72; PULSE 111; RESP 20; TEMP 36.8; O2SAT 94
[2024-09-29 00:17] VITALS: O2SAT 94
[2024-09-29 00:18] VITALS: BP 135/72; PULSE 111; RESP 20; TEMP 36.8; O2SAT 94
== END 2024-09-29 00:18 | disposition home or self-care (01) ==
PROVIDERS: Physician Assistant Medical; Emergency Provider Emergency Medicine Emergency Medical Services
DX: J40 Bronchitis, not specified as acute or chronic (principal); R06.02 Shortness of breath; R00.0 Tachycardia, unspecified; I44.7 Left bundle-branch block, unspecified; Z03.818 Encounter for observation for suspected exposure to other biological agents ruled out; Z79.899 Other long term (current) drug therapy
CPT/HCPCS: 0241U; 71046; 80053; 83735; 84484; 85025; 93005; 94640; 99284

== ENCOUNTER → 2024-09-28 19:04 | Outpatient (BNV) | payer OTHER, SELFPAY | PROVIDERS: Visit Provider Radiology Vascular & Interventional Radiology | DX: J84.89 Other specified interstitial pulmonary diseases (principal) | CPT/HCPCS: 71046 ==

== ENCOUNTER → 2024-09-28 19:05 | Outpatient (BNV) | payer OTHER, SELFPAY | PROVIDERS: Emergency Provider Emergency Medicine Emergency Medical Services; Visit Provider Internal Medicine Cardiovascular Disease | DX: I44.7 Left bundle-branch block, unspecified (principal); R00.0 Tachycardia, unspecified | CPT/HCPCS: 93010 ==

== ENCOUNTER 2024-10-07 03:50 | Emergency (ER) | payer OTHER, SELFPAY ==
[2024-10-07 03:51] VITALS: BP 136/87; PULSE 87; RESP 18; TEMP 36.7; O2SAT 95; BMI 41.6
--- NOTE | 2024-10-07 04:03 | ED_ITS ---
HPI - SOB/Dyspnea General Chief Complaint: Dyspnea Stated Complaint: diff breathing Time Seen by Provider: 10/07/24 04:01 Source: patient Mode of arrival: ambulatory Limitations: no limitations History of Present Illness ED Provider: Dr. Briseida Manzano HPI Narrative: Patient comes to the emergency room complaining of wheezing. Patient states that this time the exacerbation started a few hours ago, has been using nebulizers at home. Patient is known to have frequent asthma exacerbations. Patient denies any coughing, denies fever chills. Denies chest pain. Related Data Previous Rx's ?Medication ?Instructions ?Recorded nebulizer and compressor #1 ea 09/15/21 nebulizers (Aeroneb Go Nebulizer) #1 ea 04/18/22 albuterol sulfate 2.5 mg/3 mL 2.5 mg (3 mL) inhalation Q4H PRN 09/07/24 (0.083 %) solution for nebulization Shortness Of Breath/Wheezing #50 ea albuterol sulfate 90 mcg/actuation 1 inh inhalation QID PRN shortness 09/07/24 aerosol inhaler of breath or wheezing #6.7 grams doxycycline monohydrate 100 mg 100 mg PO BID #10 caps 09/07/24 capsule prednisone 20 mg tablet 40 mg (2 x 20 mg) PO DAILY #10 tabs 09/07/24 prednisone 20 mg tablet 40 mg (2 x 20 mg) PO DAILY #10 tabs 09/23/24 azithromycin 250 mg tablet See Rx Instructions PO .COMPLEX #6 09/28/24 tabs albuterol sulfate 90 mcg/actuation 2 puff inhalation Q4-6H PRN 10/07/24 aerosol inhaler shortness of breath or wheezing #8.5 grams fluticasone propionate 250 2 inh inhalation Q12H #60 ea 10/07/24 mcg/actuation blister powder for inhalation prednisone 50 mg tablet 50 mg PO DAILY #4 tabs 10/07/24 Allergies Allergy/AdvReac Type Severity Reaction Status Date / Time shellfish derived Allergy Severe SHORTNESS Verified 10/07/24 03:53 OF BREATH, SWELLING shrimp Allergy Severe ANAPHYLAXIS Verified 10/07/24 03:53 Review of Systems 2 Review of Systems: Constitutional : No Weight loss, No Fever, No Chills, No Night Sweats, No Fatigue, No Malaise ENT/Mouth : No Hearing loss, No Ear Pain, No Nasal Congestion, No Sinus Pain, No Hoarseness, No sore throat, No Rhinorrhea, No Swallowing Difficulty Eyes: No Eye Pain, No Swelling, No Redness, No Foreign Body, No Discharge, No Vision Changes Cardiovascular : No Chest Pain, No SOB, No Dyspnea on Exertion, No Orthopnea, No Edema, No Palpitations Respiratory : Complaining of cough, wheezing, chest tightness with no pain Gastrointestinal : No Nausea, No Vomiting, No Diarrhea, No Constipation, No abdominal Pain, No Hematochezia, No Melena Genitourinary : no irregular bleeding, No Dysuria, No Urinary Frequency, No Hematuria, No Urinary Incontinence, No Urgency, No Flank Pain, No Urinary Flow Changes, No Hesitancy Musculoskeletal : No joint pain, No Myalgias, No Joint Swelling Skin : No Skin Lesions, No rash Neuro : No Weakness, No Numbness, No Paresthesias, No Loss of Consciousness, No Dizziness, No Headache Psych : No Anxiety/Panic, No Depression, No SI/HI/AH/VH, No Social Issues, Heme/Lymph: No Bruising, No Bleeding,No Lymphadenopathy Endocrine : No Polyuria, No Polydipsia, No Temperature Intolerance [facility] Past Medical History Medical History Asthma Pneumonia due to 2019 novel coronavirus Asthma Family History Family History Mother Asthma Social History Social History Household Members: None Housing: House Do you presently have visiting nurse or other home services: No Alcohol intake: never Patient Tobacco Use Status: Never used Tobacco Smoked in Last 30 Days: No Use of substances other than those prescribed or required for medical reasons: No Advance Directives: No Advance Directives Information Provided: Yes Do you have a plan to hurt others: No Plan service: No Current occupational status: unemployed Physical Exam 2 Vital Signs: Vital Signs: Last Vital Signs Temp 98.1 F 10/07/24 03:51 Pulse 82 10/07/24 04:24 Resp 22 H 10/07/24 04:24 BP 136/87 10/07/24 03:51 Pulse Ox 95 10/07/24 03:51 O2 Del Method Room Air 10/07/24 03:51 BMI result Body Mass Index 41.6 Const: Other: Appearance: Alert. Oriented X3. No acute distress. Eyes: Pupils equal, round and reactive to light. ENT: Pharynx normal. Neck: Normal inspection. Neck supple. No lymph nodes noted. No crepitus CVS: Normal heart rate and rhythm. Pulses normal. Normal S1 and S2 Respiratory: Bilateral wheezing, oxygen saturation 90% on room air. Moderate air movement Abdomen: Soft and nontender. No rigidity. No distention. Skin: Skin warm and dry. Normal skin color. Normal skin turgor. Extremities: No lower extremity edema. No Lacerations. No Rash Neuro: Oriented X 3. No motor deficit. No sensory deficit. Moving all extremities. No slurred speech. CN 2 through 12 grossly intact Psych: calm, cooperative, normal affect Course Course Course Narrative: Respiratory we will be starting neb treatment soon Patient receiving IV Solu-Medrol, magnesium Of patient's labs pending Medications Administered Discontinued Medications Generic Name Dose Route Start Last Admin Trade Name Freq PRN Reason Stop Dose Admin Albuterol Sulfate 5 mg/ 7.5 mg 10/07/24 04:17 10/07/24 04:22 Albuterol Sulfate 2.5 mg INHALE 10/07/24 04:18 7.5 mg ONCE ONE Administration Magnesium Sulfate 2 gm in 50 mls @ 25 mls/hr 10/07/24 03:52 10/07/24 04:13 Magnesium Sulfate/H2o IV 10/07/24 05:51 25 mls/hr ONCE ONE Administration Methylprednisolone Sodium Succinate 125 mg 10/07/24 03:52 10/07/24 04:13 Methylprednisolone Sod Succ 125 Mg/2 Ml Vial IVPUSH 10/07/24 03:53 125 mg ONCE ONE Administration Medical Decision Making Medical Decision Making [facility] Narrative: My interpretation of labs: No significant abnormality patient's hematology and chemistry, at baseline, serology negative for influenza RSV and call Patient states that he feels much better. On auscultation, lungs sound clear, very minimal wheezing. Patient was ambulated around the emergency room, oxygen saturation 95%, no oxygen desaturation, no wheezing. Patient states that he feels well to go home. Patient states that he has enough albuterol for nebs but needs a pump Patient is constantly struggling with asthma. Patient states that he has asthma symptoms almost every day. At least once a week he has trouble sleeping or the asthma disturbs his daily life. Symptoms at night are fairly frequent, couple of times per week. Seems that patient is not being fall by a folder seamer. I advised the patient to follow-up with pulmonology. In the meantime, we will go ahead and start patient on Flovent. Differential Diagnosis Differential Diagnoses: The differential diagnosis associated with the presentation includes Admission/Observation Consideration of admission/observation: Escalation of care including admission/observation considered (Patient known to have frequent asthma exacerbations, admission/observation was considered) Lab Data MDM Lab Attestation statement: I reviewed the patient's lab results. 10/07/24 04:13 10/07/24 04:13 Labs: Lab Results 10/07/24 10/07/24 Range/Units 04:13 04:17 WBC 12.4 H (4.8-10.8) X10*3/uL RBC 5.38 (4.60-5.80) X10*6/uL Hgb 15.2 (14.0-18.0) g/dl Hct 42.4 (42.0-52.0) % MCV 78.8 L (80.0-98.0) fL MCH 28.3 (27.0-33.0) pg MCHC 35.8 (31.0-36.0) g/dl RDW 11.8 (11.0-16.0) % Plt Count 402 H (160-400) X10*3/uL MPV 9.2 L (9.4-12.4) fL Immature Gran % (Auto) 0.6 H (0.0-0.4) % Neut % (Auto) 47.8 (45-73) % Lymph % (Auto) 35.5 (20-40) % [place] % (Auto) 7.4 (2-11) % Eos % (Auto) 7.2 H (0-4) % Baso % (Auto) 1.5 (0-2) % Lymph # (Auto) 4.4 (1.2-4.9) X10*3/uL [place] # (Auto) 0.9 (0.1-1.2) X10*3/uL Eos # (Auto) 0.9 H (0.0-0.4) X10*3/uL Baso # (Auto) 0.2 (0.0-0.2) X10*3/uL Abs Immat Gran (auto) 0.07 H (0.00-0.03) X10*3/uL Absolute Neuts (auto) 5.9 (2.0-8.3) x10*3/uL Absolute Nucleated RBC 0.000 (0.0-0.012) X10*3/uL Nucleated RBC % (auto) 0.0 (0.0-0.2) /100WBC VBG pH 7.42 (7.32-7.43) VBG pCO2 33 mmHg VBG pO2 72 mmHg VBG HCO3 21 L (22-26) mmol/L VBG O2 Saturation 95.0 % VBG Base Excess -1.9 mmol/L Sodium 140 (135-145) mmol/L Potassium 4.2 (3.3-5.1) mmol/L Chloride 108 (96-108) mmol/L Carbon Dioxide 19 L (22-29) mmol/L Anion Gap 17 (12-20) BUN 9 (9-16) mg/dL Creatinine 0.79 (0.5-1.4) mg/dL Estim Creat Clear Calc 159.0 Estimated GFR > 60 Random Glucose 107 (60-115) mg/dL Calcium 9.1 (8.4-10.2) mg/dL Total Bilirubin 0.4 (0.0-1.0) mg/dL Direct Bilirubin 0.2 (0.0-0.5) mg/dL AST 26 (5-37) U/L ALT 30 (0-40) U/L Alkaline Phosphatase 77 (39-117) U/L Troponin I High Sens < 2.7 (<3.5-35.0) ng/L Total Protein 8.0 (6.5-8.0) g/dL Albumin 4.2 (3.5-5.0) g/dL Influenza Type A (PCR) NEGATIVE (Negative) Influenza Type B (PCR) NEGATIVE (Negative) RSV RNA Qual (PCR) NEGATIVE (Negative) SARS-CoV-2 RNA (RT-PCR) NEGATIVE (Negative) Critical Care Time Critical Care Time Critical Care Time: Yes Total Critical Care Time: 45 Attestation: I have personally provided critical care time. Time includes review of lab data, radiology results, discussion with consultants, and monitoring for potential decompensation. Intervention performed as documented. Discharge Plan Discharge Clinical Impression: Asthma with exacerbation Patient Disposition: Home, Self-Care Instructions: Asthma (ED) Additional Instructions: You were started on Flovent. Please make sure that you use it everyday twice a day and make sure urine your mouth after use to avoid any fungal infections in her mouth. Please follow-up with your primary care physician tomorrow. If you have any worsening or new symptoms, please return to the emergency room or call 911 Prescriptions: New albuterol sulfate 90 mcg/actuation HFA aerosol inhaler 2 puff inhalation Q4-6H PRN (Reason: shortness of breath or wheezing) Qty: 8.5 2RF prednisone 50 mg tablet 50 mg PO DAILY Qty: 4 0RF fluticasone propionate 250 mcg/actuation blister with device 2 inh inhalation Q12H Qty: 60 2RF No Action (DME) nebulizer and compressor Device See Rx Instructions .Route Qty: 1 0RF Rx Instructions: As directed (DME) nebulizers [Aeroneb Go Nebulizer] [facility] See Rx Instructions .Route Qty: 1 0RF Rx Instructions: As directed albuterol sulfate 2.5 mg /3 mL (0.083 %) Solution For Nebulization 2.5 mg inhalation Q4H PRN (Reason: Shortness Of Breath/Wheezing) Qty: 50 0RF doxycycline monohydrate 100 mg Capsule 100 mg PO BID Qty: 10 0RF prednisone 20 mg tablet 40 mg PO DAILY Qty: 10 0RF albuterol sulfate 90 mcg/actuation HFA aerosol inhaler 1 inh inhalation QID PRN (Reason: shortness of breath or wheezing) Qty: 6.7 0RF azithromycin 250 mg tablet See Rx Instructions .ROUTE .COMPLEX Qty: 6 0RF Rx Instructions: For 250 mg dose pack: take 500 mg today (day 1), then 250 mg for 4 days (days 2-5) prednisone 20 mg tablet 40 mg PO DAILY Qty: 10 0RF Referrals: Kip Bellamy MD [Physician] - 10/09/24 Print Language: Welsh
[2024-10-07] MEDS: methylPREDNISolone Sod Succ 125 MG/2 ML VIAL IVPUSH (04:13)
[2024-10-07] MEDS: Magnesium Sulfate/H2O 2 GM/50 ML PIGGYBACK IV (04:13)
[2024-10-07 04:18] LABS: Basophils Absolute Auto 0.2 X10*3/uL (0.0-0.2); Basophils Percent Auto 1.5 % (0-2); Eosinophils Absolute Auto 0.9 X10*3/uL (0.0-0.4); Eosinophils Percent Auto 7.2 % (0-4); Hematocrit 42.4 % (42.0-52.0); Hemoglobin 15.2 g/dl (14.0-18.0); Imm Gran Abs Auto 0.07 X10*3/uL (0.00-0.03); Imm Gran Pct Auto 0.6 % (0.0-0.4); Lymphocytes Absolute Auto 4.4 X10*3/uL (1.2-4.9); Lymphocytes Percent Auto 35.5 % (20-40); MANUAL DIFF FLAG NO; Mean Corpuscular HGB Conc 35.8 g/dl (31.0-36.0); Mean Corpuscular Hemoglobin 28.3 pg (27.0-33.0); Mean Corpuscular Volume 78.8 fL (80.0-98.0); Mean Platelet Volume 9.2 fL (9.4-12.4); Monocytes Absolute Auto 0.9 X10*3/uL (0.1-1.2); Monocytes Percent Auto 7.4 % (2-11); Neutrophils Absolute Auto 5.9 x10*3/uL (2.0-8.3); Neutrophils Percent Auto 47.8 % (45-73); Platelet Count 402 X10*3/uL (160-400); Red Blood Count 5.38 X10*6/uL (4.60-5.80); Red Cell Distribution Width 11.8 % (11.0-16.0); White Blood Count 12.4 X10*3/uL (4.8-10.8)
[2024-10-07 04:20] LABS: Venous Blood Gas Refer to POC result
[2024-10-07 04:21] LABS: VBG Base Excess -1.9 mmol/L; VBG HCO3 21 mmol/L (22-26); VBG pCO2 33 mmHg; VBG pH 7.42 (7.32-7.43); VBG pO2 72 mmHg
[2024-10-07] MEDS: Albuterol Sulfate 5 MG, Albuterol Sulfate (0.083%) 2.5 MG 7.5 MG INHALE (04:22)
[2024-10-07 04:24] VITALS: PULSE 82; RESP 22; O2SAT 95
[2024-10-07 04:35] LABS: Alanine Aminotransferase 30 U/L (0-40); Albumin Level 4.2 g/dL (3.5-5.0); Alkaline Phosphatase 77 U/L (39-117); Anion Gap 17 (12-20); Aspartate Amino Transferase 26 U/L (5-37); Bilirubin Direct 0.2 mg/dL (0.0-0.5); Bilirubin Total 0.4 mg/dL (0.0-1.0); Blood Urea Nitrogen 9 mg/dL (9-16); Calcium 9.1 mg/dL (8.4-10.2); Carbon Dioxide 19 mmol/L (22-29); Chloride 108 mmol/L (96-108); Estimated Glomerular Filt Rate > 60; Glucose Random 107 mg/dL (60-115); Potassium 4.2 mmol/L (3.3-5.1); Sodium 140 mmol/L (135-145)
[2024-10-07 04:42] LABS: Troponin-I High Sensitivity < 2.7 ng/L (<3.5-35.0)
[2024-10-07 04:56] LABS: Influenza A PCR NEGATIVE (Negative); Influenza B PCR NEGATIVE (Negative); Resp Syncy Virus RNA Qual PCR NEGATIVE (Negative); SARS COV2 PCR INHOUSE NEGATIVE (Negative)
[2024-10-07 05:59] VITALS: PULSE 112; O2SAT 95
[2024-10-07 06:22] VITALS: BP 126/88; PULSE 90; RESP 15; TEMP 36.7; O2SAT 94
== END 2024-10-07 06:25 | disposition home or self-care (01) ==
PROVIDERS: Emergency Provider Emergency Medicine; PCP Internal Medicine
DX: J45.901 Unspecified asthma with (acute) exacerbation (principal); R06.02 Shortness of breath; R10.2 Pelvic and perineal pain; Z03.818 Encounter for observation for suspected exposure to other biological agents ruled out; Z79.899 Other long term (current) drug therapy
CPT/HCPCS: 0241U; 80048; 80076; 82803; 84484; 85025; 94640; 96365; 96366; 96375; 99284; 99285; J2919; J3475

== ENCOUNTER 2024-10-14 02:13 | Emergency (ER) | payer OTHER, SELFPAY ==
--- NOTE | ~2024-10-14 | XR_ITS ---
CLINICAL HISTORY: sob CHEST X-RAY FRONTAL VIEW COMPARISON: 09/28/2024. FINDINGS: A single frontal view of the chest was performed. Patient is mildly rotated to the right. The cardiac size is within normal limits. No focal infiltrate or consolidation. No pleural effusion or pneumothorax. IMPRESSION: 1. No acute disease. This document has been electronically signed by: Khanh Nolan M.D. on 10/14/2024 03:22:11
[2024-10-14 02:14] VITALS: BP 151/99; PULSE 89; RESP 18; TEMP 36.7; O2SAT 95; BMI 38.3
[2024-10-14 02:43] LABS: MANUAL DIFF FLAG NO
[2024-10-14 02:44] LABS: Basophils Absolute Auto 0.2 X10*3/uL (0.0-0.2); Basophils Percent Auto 1.5 % (0-2); Eosinophils Absolute Auto 0.8 X10*3/uL (0.0-0.4); Eosinophils Percent Auto 6.4 % (0-4); Hematocrit 43.2 % (42.0-52.0); Imm Gran Abs Auto 0.07 X10*3/uL (0.00-0.03); Imm Gran Pct Auto 0.5 % (0.0-0.4); Lymphocytes Absolute Auto 4.3 X10*3/uL (1.2-4.9); Lymphocytes Percent Auto 32.9 % (20-40); Mean Corpuscular HGB Conc 34.7 g/dl (31.0-36.0); Mean Corpuscular Hemoglobin 27.6 pg (27.0-33.0); Mean Corpuscular Volume 79.6 fL (80.0-98.0); Mean Platelet Volume 9.5 fL (9.4-12.4); Monocytes Absolute Auto 0.8 X10*3/uL (0.1-1.2); Monocytes Percent Auto 6.4 % (2-11); Neutrophils Absolute Auto 6.8 x10*3/uL (2.0-8.3); Neutrophils Percent Auto 52.3 % (45-73); Platelet Count 380 X10*3/uL (160-400); Red Blood Count 5.43 X10*6/uL (4.60-5.80); Red Cell Distribution Width 11.9 % (11.0-16.0)
--- NOTE | 2024-10-14 02:48 | PC.NURSE ---
pt to ed6 from , changed to hospital gown, placed on cardiac and o2 monitoring. 20g IV to L. ac. meds given per oct. mag infusing at rate to infuse in 20 minutes per MD. awaiting RT for breathing tx, nad at this time, resp even and unlabored sats 96% on RA. call erickson within reach.
[2024-10-14] MEDS: Magnesium Sulfate/H2O 2 GM/50 ML PIGGYBACK IV (02:50)
[2024-10-14] MEDS: methylPREDNISolone Sod Succ 125 MG/2 ML VIAL IVPUSH (02:50)
--- NOTE | 2024-10-14 02:56 | ED_ITS ---
HPI - SOB/Dyspnea General Chief Complaint: Dyspnea Stated Complaint: Asthma, SOB Time Seen by Provider: 10/14/24 02:56 Source: patient Mode of arrival: ambulatory Limitations: no limitations History of Present Illness ED Provider: Dr. Briseida Manzano HPI Narrative: Patient comes to the emergency room complaining of asthma exacerbation. Patient states that he has had asthma exacerbations for last couple of days. About a week ago, I took care of the patient. I started him on any medication, fluticasone. However, patient states that he was unable to tile picker his medications at the pharmacy and has not started it. Patient states that his son has been in the hospital for asthma exacerbations in [place]. Therefore, he was not able to take care of himself for tile picker his meds. Patient was not able to call pulmonology either to schedule an appointment Related Data Previous Rx's ?Medication ?Instructions ?Recorded nebulizer and compressor #1 ea 09/15/21 nebulizers (Aeroneb Go Nebulizer) #1 ea 04/18/22 albuterol sulfate 2.5 mg/3 mL 2.5 mg (3 mL) inhalation Q4H PRN 09/07/24 (0.083 %) solution for nebulization Shortness Of Breath/Wheezing #50 ea albuterol sulfate 90 mcg/actuation 1 inh inhalation QID PRN shortness 09/07/24 aerosol inhaler of breath or wheezing #6.7 grams doxycycline monohydrate 100 mg 100 mg PO BID #10 caps 09/07/24 capsule prednisone 20 mg tablet 40 mg (2 x 20 mg) PO DAILY #10 tabs 09/07/24 prednisone 20 mg tablet 40 mg (2 x 20 mg) PO DAILY #10 tabs 09/23/24 azithromycin 250 mg tablet See Rx Instructions PO .COMPLEX #6 09/28/24 tabs albuterol sulfate 90 mcg/actuation 2 puff inhalation Q4-6H PRN 10/07/24 aerosol inhaler shortness of breath or wheezing #8.5 grams fluticasone propionate 250 2 inh inhalation Q12H #60 ea 10/07/24 mcg/actuation blister powder for inhalation prednisone 50 mg tablet 50 mg PO DAILY #4 tabs 10/07/24 Allergies Allergy/AdvReac Type Severity Reaction Status Date / Time shellfish derived Allergy Severe SHORTNESS Verified 10/14/24 02:16 OF BREATH, SWELLING shrimp Allergy Severe ANAPHYLAXIS Verified 10/14/24 02:16 Review of Systems 2 Review of Systems: Constitutional : No Weight loss, No Fever, No Chills, No Night Sweats, No Fatigue, No Malaise ENT/Mouth : No Hearing loss, No Ear Pain, No Nasal Congestion, No Sinus Pain, No Hoarseness, No sore throat, No Rhinorrhea, No Swallowing Difficulty Eyes: No Eye Pain, No Swelling, No Redness, No Foreign Body, No Discharge, No Vision Changes Cardiovascular : No Chest Pain, No SOB, No Dyspnea on Exertion, No Orthopnea, No Edema, No Palpitations Respiratory : complaining of cough, shortness of breath, wheezing Gastrointestinal : No Nausea, No Vomiting, No Diarrhea, No Constipation, No abdominal Pain, No Hematochezia, No Melena Genitourinary : no irregular bleeding, No Dysuria, No Urinary Frequency, No Hematuria, No Urinary Incontinence, No Urgency, No Flank Pain, No Urinary Flow Changes, No Hesitancy Musculoskeletal : No joint pain, No Myalgias, No Joint Swelling Skin : No Skin Lesions, No rash Neuro : No Weakness, No Numbness, No Paresthesias, No Loss of Consciousness, No Dizziness, No Headache Psych : No Anxiety/Panic, No Depression, No SI/HI/AH/VH, No Social Issues, Heme/Lymph: No Bruising, No Bleeding,No Lymphadenopathy Endocrine : No Polyuria, No Polydipsia, No Temperature Intolerance [facility] Past Medical History Medical History Asthma Pneumonia due to 2019 novel coronavirus Asthma Family History Family History Mother Asthma Social History Social History Household Members: None Housing: House Do you presently have visiting nurse or other home services: No Alcohol intake: never Patient Tobacco Use Status: Never used Tobacco Advance Directives: No Advance Directives Information Provided: No Do you have a plan to hurt others: No Plan service: No Current occupational status: unemployed Physical Exam 2 Vital Signs: Vital Signs: Last Vital Signs Temp 98.1 F 10/14/24 02:14 Pulse 76 10/14/24 03:05 Resp 20 10/14/24 03:05 BP 151/99 H 10/14/24 02:14 Pulse Ox 95 10/14/24 02:14 O2 Del Method Room Air 10/14/24 02:14 BMI result Body Mass Index 38.3 Const: Other: Appearance: Alert. Oriented X3. No acute distress. Eyes: Pupils equal, round and reactive to light. ENT: Pharynx normal. Neck: Normal inspection. Neck supple. No lymph nodes noted. No crepitus CVS: Normal heart rate and rhythm. Pulses normal. Normal S1 and S2 Respiratory: No respiratory distress. my bilateral wheezing, moderate air movement Abdomen: Soft and nontender. No rigidity. No distention. Skin: Skin warm and dry. Normal skin color. Normal skin turgor. Extremities: No lower extremity edema. No Lacerations. No Rash Neuro: Oriented X 3. No motor deficit. No sensory deficit. Moving all extremities. No slurred speech. CN 2 through 12 grossly intact Psych: calm, cooperative, normal affect Medications Administered Discontinued Medications Generic Name Dose Route Start Last Admin Trade Name Jrq PRN Reason Stop Dose Admin Albuterol Sulfate 7.5 mg/ 10 mg 10/14/24 04:39 10/14/24 04:46 Albuterol Sulfate 2.5 mg INHALE 10/14/24 04:40 10 mg ONCE ONE Administration Albuterol/Ipratropium 3 ml 10/14/24 03:02 10/14/24 03:05 Albuterol/Iprat 2.5/0.5mg 3 Ml Ampul.Neb INHALE 10/14/24 03:03 3 ml ONCE ONE Administration Magnesium Sulfate 2 gm in 50 mls @ 25 mls/hr 10/14/24 02:32 10/14/24 02:50 Magnesium Sulfate/H2o IV 10/14/24 04:31 25 mls/hr ONCE ONE Administration Methylprednisolone Sodium Succinate 125 mg 10/14/24 02:32 10/14/24 02:50 Methylprednisolone Sod Succ 125 Mg/2 Ml Vial IVPUSH 10/14/24 02:33 125 mg ONCE ONE Administration Medical Decision Making Medical Decision Making [facility] Narrative: my interpretation of labs: Patient has chronic leukocytosis, at baseline, no other hematology abnormality. Chemistry within normal limits. Serology negative for influenza a and B, RSV and COVID. Chest x-ray does not show any acute abnormality. Patient has medication pending in his pharmacy way to be picked up from last week. Patient's oxygen saturation 94-95%. After the 1st nebulization treatment, patient states that he feels much better, also received IV Solu-Medrol and magnesium. Patient requesting 1 more breathing treatment. after the 2nd treatment, patient feeling much better. Patient ambulated around the emergency room, oxygen steady 96% no desaturation. Patient has medications waiting at his pharmacy ( Albuterol, prednisone, fluticasone) Differential Diagnosis Differential Diagnoses: The differential diagnosis associated with the presentation includes ( asthma exacerbation, COVID, RSV, influenza, pneumonia) Admission/Observation Consideration of admission/observation: Escalation of care including admission/observation considered ( given patient's recurrent symptoms and severity, observation was considered) Lab Data MDM Lab Attestation statement: I reviewed the patient's lab results. 10/14/24 02:36 10/14/24 02:36 Labs: Lab Results 10/14/24 Range/Units 02:36 WBC 13.0 H (4.8-10.8) X10*3/uL RBC 5.43 (4.60-5.80) X10*6/uL Hgb 15.0 (14.0-18.0) g/dl Hct 43.2 (42.0-52.0) % MCV 79.6 L (80.0-98.0) fL MCH 27.6 (27.0-33.0) pg MCHC 34.7 (31.0-36.0) g/dl RDW 11.9 (11.0-16.0) % Plt Count 380 (160-400) X10*3/uL MPV 9.5 (9.4-12.4) fL Immature Gran % (Auto) 0.5 H (0.0-0.4) % Neut % (Auto) 52.3 (45-73) % Lymph % (Auto) 32.9 (20-40) % [place] % (Auto) 6.4 (2-11) % Eos % (Auto) 6.4 H (0-4) % Baso % (Auto) 1.5 (0-2) % Lymph # (Auto) 4.3 (1.2-4.9) X10*3/uL [place] # (Auto) 0.8 (0.1-1.2) X10*3/uL Eos # (Auto) 0.8 H (0.0-0.4) X10*3/uL Baso # (Auto) 0.2 (0.0-0.2) X10*3/uL Abs Immat Gran (auto) 0.07 H (0.00-0.03) X10*3/uL Absolute Neuts (auto) 6.8 (2.0-8.3) x10*3/uL Absolute Nucleated RBC 0.000 (0.0-0.012) X10*3/uL Nucleated RBC % (auto) 0.0 (0.0-0.2) /100WBC Sodium 139 (135-145) mmol/L Potassium 3.9 (3.3-5.1) mmol/L Chloride 108 (96-108) mmol/L Carbon Dioxide 22 (22-29) mmol/L Anion Gap 13 (12-20) BUN 11 (9-16) mg/dL Creatinine 0.77 (0.5-1.4) mg/dL Estim Creat Clear Calc 156.0 Estimated GFR > 60 Random Glucose 102 (60-115) mg/dL Calcium 9.2 (8.4-10.2) mg/dL Total Bilirubin 0.4 (0.0-1.0) mg/dL Direct Bilirubin 0.1 (0.0-0.5) mg/dL AST 23 (5-37) U/L ALT 29 (0-40) U/L Alkaline Phosphatase 81 (39-117) U/L Total Protein 8.0 (6.5-8.0) g/dL Albumin 4.1 (3.5-5.0) g/dL Influenza Type A (PCR) NEGATIVE (Negative) Influenza Type B (PCR) NEGATIVE (Negative) RSV RNA Qual (PCR) NEGATIVE (Negative) SARS-CoV-2 RNA (RT-PCR) NEGATIVE (Negative) Independent Interpretation I performed an independent interpretation of an: Plain X-Ray Radiology Impression Discussion of test interpretation with radiology: I have reviewed the radiologist's reading. Radiologist Impression: FINDINGS: A single frontal view of the chest was performed. Patient is mildly rotated to the right. The cardiac size is within normal limits. No focal infiltrate or consolidation. No pleural effusion or pneumothorax. IMPRESSION: 1. No acute disease. Critical Care Time Critical Care Time Critical Care Time: Yes Total Critical Care Time: 50 Attestation: I have personally provided critical care time. Time includes review of lab data, radiology results, discussion with consultants, and monitoring for potential decompensation. Intervention performed as documented. Discharge Plan Discharge Clinical Impression: Asthma Qualifiers: Asthma severity: unspecified severity Asthma persistence: unspecified Asthma complication type: unspecified Qualified Code(s): J45.909 - Unspecified asthma, uncomplicated Patient Disposition: Home, Self-Care Instructions: Asthma (ED) Additional Instructions: please make sure that you tile picker your medications today. Please follow-up with your primary care physician tomorrow. If you have any worsening or new symptoms, please return to the emergency room or call 911 Prescriptions: No Action (DME) nebulizer and compressor Device See Rx Instructions .Route Qty: 1 0RF Rx Instructions: As directed (DME) nebulizers [Aeroneb Go Nebulizer] Misc See Rx Instructions .Route Qty: 1 0RF Rx Instructions: As directed albuterol sulfate 2.5 mg /3 mL (0.083 %) Solution For Nebulization 2.5 mg inhalation Q4H PRN (Reason: Shortness Of Breath/Wheezing) Qty: 50 0RF doxycycline monohydrate 100 mg Capsule 100 mg PO BID Qty: 10 0RF prednisone 20 mg tablet 40 mg PO DAILY Qty: 10 0RF albuterol sulfate 90 mcg/actuation HFA aerosol inhaler 1 inh inhalation QID PRN (Reason: shortness of breath or wheezing) Qty: 6.7 0RF azithromycin 250 mg tablet See Rx Instructions .ROUTE .COMPLEX Qty: 6 0RF Rx Instructions: For 250 mg dose pack: take 500 mg today (day 1), then 250 mg for 4 days (days 2-5) albuterol sulfate 90 mcg/actuation HFA aerosol inhaler 2 puff inhalation Q4-6H PRN (Reason: shortness of breath or wheezing) Qty: 8.5 2RF prednisone 50 mg tablet 50 mg PO DAILY Qty: 4 0RF fluticasone propionate 250 mcg/actuation blister with device 2 inh inhalation Q12H Qty: 60 2RF prednisone 20 mg tablet 40 mg PO DAILY Qty: 10 0RF Print Language: Occitan
[2024-10-14 03:05] VITALS: PULSE 76; RESP 20; O2SAT 96
[2024-10-14] MEDS: Albuterol/Iprat 2.5/0.5MG 3 ML AMPUL.NEB INHALE (03:05)
[2024-10-14 03:09] LABS: Alanine Aminotransferase 29 U/L (0-40); Albumin Level 4.1 g/dL (3.5-5.0); Alkaline Phosphatase 81 U/L (39-117); Anion Gap 13 (12-20); Aspartate Amino Transferase 23 U/L (5-37); Bilirubin Direct 0.1 mg/dL (0.0-0.5); Bilirubin Total 0.4 mg/dL (0.0-1.0); Blood Urea Nitrogen 11 mg/dL (9-16); Calcium 9.2 mg/dL (8.4-10.2); Carbon Dioxide 22 mmol/L (22-29); Chloride 108 mmol/L (96-108); Estimated Glomerular Filt Rate > 60; Glucose Random 102 mg/dL (60-115); Potassium 3.9 mmol/L (3.3-5.1); Sodium 139 mmol/L (135-145)
[2024-10-14 03:20] LABS: Influenza A PCR NEGATIVE (Negative); Influenza B PCR NEGATIVE (Negative); Resp Syncy Virus RNA Qual PCR NEGATIVE (Negative); SARS COV2 PCR INHOUSE NEGATIVE (Negative)
[2024-10-14] MEDS: Albuterol Sulfate 7.5 MG, Albuterol Sulfate (0.083%) 2.5 MG 10 MG INHALE (04:46)
[2024-10-14 06:01] VITALS: BP 117/73; PULSE 83; RESP 15; TEMP 36.7; O2SAT 93
[2024-10-14 06:06] VITALS: O2SAT 96
[2024-10-14 06:07] VITALS: BP 117/73; PULSE 83; RESP 15; TEMP 36.7; O2SAT 93
== END 2024-10-14 06:08 | disposition home or self-care (01) ==
PROVIDERS: Emergency Provider Emergency Medicine; PCP Internal Medicine
DX: J45.909 Unspecified asthma, uncomplicated (principal); Z11.52 Encounter for screening for COVID-19
CPT/HCPCS: 0241U; 71045; 80048; 80076; 85025; 94640; 96365; 96375; 99285; J2919; J3475

== ENCOUNTER → 2024-10-14 02:33 | Outpatient (BNV) | payer OTHER, SELFPAY | PROVIDERS: Emergency Provider Emergency Medicine; PCP Internal Medicine; Visit Provider Radiology Diagnostic Radiology | DX: R06.02 Shortness of breath (principal) | CPT/HCPCS: 71045 ==

== ENCOUNTER 2024-10-22 19:51 | Emergency (ER) | payer OTHER, SELFPAY ==
--- NOTE | ~2024-10-22 | XR_ITS ---
CLINICAL HISTORY: sob EXAM: One view chest x-ray COMPARISON: CR - XR CHEST 1V - 10/14/24 02:49 EST FINDINGS: Normal cardiac, mediastinal, and hilar contours. Normal heart size. No pleural effusion or pneumothorax. Lungs are clear. No acute bone finding. IMPRESSION: 1. No acute cardiopulmonary process demonstrated. This document has been electronically signed by: Walt Rao MD on 10/23/2024 01:13:23
[2024-10-22 19:57] VITALS: BP 138/82; PULSE 93; RESP 22; TEMP 36.9; O2SAT 94; BMI 43.0
[2024-10-22 20:11] LABS: MANUAL DIFF FLAG NO
[2024-10-22 20:12] LABS: Basophils Absolute Auto 0.2 X10*3/uL (0.0-0.2); Basophils Percent Auto 1.4 % (0-2); Eosinophils Absolute Auto 1.1 X10*3/uL (0.0-0.4); Eosinophils Percent Auto 10.4 % (0-4); Hematocrit 41.6 % (42.0-52.0); Hemoglobin 14.5 g/dl (14.0-18.0); Imm Gran Abs Auto 0.04 X10*3/uL (0.00-0.03); Imm Gran Pct Auto 0.4 % (0.0-0.4); Lymphocytes Absolute Auto 3.2 X10*3/uL (1.2-4.9); Lymphocytes Percent Auto 29.2 % (20-40); Mean Corpuscular HGB Conc 34.9 g/dl (31.0-36.0); Mean Corpuscular Hemoglobin 28.2 pg (27.0-33.0); Mean Corpuscular Volume 80.8 fL (80.0-98.0); Mean Platelet Volume 9.5 fL (9.4-12.4); Monocytes Percent Auto 9.3 % (2-11); Neutrophils Absolute Auto 5.4 x10*3/uL (2.0-8.3); Neutrophils Percent Auto 49.3 % (45-73); Platelet Count 349 X10*3/uL (160-400); Red Blood Count 5.15 X10*6/uL (4.60-5.80); Red Cell Distribution Width 12.1 % (11.0-16.0); White Blood Count 10.9 X10*3/uL (4.8-10.8)
[2024-10-22 20:32] LABS: Alanine Aminotransferase 34 U/L (0-40); Albumin Level 4.1 g/dL (3.5-5.0); Alkaline Phosphatase 80 U/L (39-117); Anion Gap 13 (12-20); Aspartate Amino Transferase 26 U/L (5-37); Bilirubin Total 0.4 mg/dL (0.0-1.0); Blood Urea Nitrogen 11 mg/dL (9-16); Calcium 9.1 mg/dL (8.4-10.2); Carbon Dioxide 25 mmol/L (22-29); Chloride 107 mmol/L (96-108); Creatinine Clr Calc Pharmacy 134.7; Estimated Glomerular Filt Rate > 60; Glucose Random 118 mg/dL (60-115); Potassium 4.4 mmol/L (3.3-5.1); Sodium 141 mmol/L (135-145); Total Protein 7.9 g/dL (6.5-8.0)
[2024-10-22 22:32] VITALS: BP 140/83; PULSE 98; RESP 20; TEMP 36; O2SAT 96
--- NOTE | 2024-10-22 22:33 | PC.NURSE ---
Pt a&ox4, no signs of distress. Pts vitals stable Pt denies pain at this time Pt on his cell phone Plan of care ongoing.
[2024-10-23] MEDS: Albuterol Sulfate (0.083%) 2.5 MG/3 ML VIAL.NEB 7.5 MG INHALE (00:49)
[2024-10-23] MEDS: predniSONE 20 MG TABLET 40 MG PO (00:49)
--- NOTE | 2024-10-23 00:56 | PC.NURSE ---
Pt medicated per [facility] Plan of care ongoing.
[2024-10-23 01:15] LABS: Influenza A PCR NEGATIVE (Negative); Influenza B PCR NEGATIVE (Negative); Resp Syncy Virus RNA Qual PCR NEGATIVE (Negative); SARS COV2 PCR INHOUSE NEGATIVE (Negative)
--- NOTE | 2024-10-23 02:59 | ED_ITS ---
HPI - Asthma General Chief Complaint: Asthma Stated Complaint: asthma Time Seen by Provider: 10/23/24 00:26 Source: patient Limitations: no limitations History of Present Illness ED Provider: Jaz Hurtado PA-C HPI Narrative: 29-year-old male with a history of morbid obesity and asthma presents with asthma symptoms since earlier today. Denies preceding cough or cold symptoms no fevers. No known trigger. Related Data Previous Rx's ?Medication ?Instructions ?Recorded nebulizer and compressor #1 ea 09/15/21 nebulizers (Aeroneb Go Nebulizer) #1 ea 04/18/22 albuterol sulfate 2.5 mg/3 mL 2.5 mg (3 mL) inhalation Q4H PRN 09/07/24 (0.083 %) solution for nebulization Shortness Of Breath/Wheezing #50 ea albuterol sulfate 90 mcg/actuation 1 inh inhalation QID PRN shortness 09/07/24 aerosol inhaler of breath or wheezing #6.7 grams doxycycline monohydrate 100 mg 100 mg PO BID #10 caps 09/07/24 capsule prednisone 20 mg tablet 40 mg (2 x 20 mg) PO DAILY #10 tabs 09/07/24 prednisone 20 mg tablet 40 mg (2 x 20 mg) PO DAILY #10 tabs 09/23/24 azithromycin 250 mg tablet See Rx Instructions PO .COMPLEX #6 09/28/24 tabs albuterol sulfate 90 mcg/actuation 2 puff inhalation Q4-6H PRN 10/07/24 aerosol inhaler shortness of breath or wheezing #8.5 grams fluticasone propionate 250 2 inh inhalation Q12H #60 ea 10/07/24 mcg/actuation blister powder for inhalation prednisone 50 mg tablet 50 mg PO DAILY #4 tabs 10/07/24 prednisone 20 mg tablet 40 mg (2 x 20 mg) PO DAILY #8 tabs 10/23/24 Allergies Allergy/AdvReac Type Severity Reaction Status Date / Time shellfish derived Allergy Severe SHORTNESS Verified 10/22/24 20:01 OF BREATH, SWELLING shrimp Allergy Severe ANAPHYLAXIS Verified 10/22/24 20:01 Review of Systems 2 Review of Systems: Yes all other systems are reviewed and are negative Constitutional: Constitutional: Denies fatigue and Denies fever(s) Cardiovascular: Cardiovascular: Denies chest pain and Reports dyspnea Respiratory: Respiratory: Denies cough, Reports dyspnea and Reports wheezing Gastrointestinal: Gastrointestinal: Denies abdominal pain, Denies nausea and Denies vomiting Endocrine: Endocrine: Denies fatigue Allergic/Immunologic: Allergic/Immunologic: Reports wheezing PMFSH Past Medical History Attestation statement: The following information was validated with the patient. Medical History Asthma Pneumonia due to 2019 novel coronavirus Asthma Family History Family History Mother Asthma Social History Social History Household Members: None Housing: House Do you presently have visiting nurse or other home services: No Alcohol intake: never Patient Tobacco Use Status: Never used Tobacco service: No Current occupational status: unemployed Physical Exam 2 Vital Signs: Vital Signs: Last Vital Signs Temp 97.4 F 10/23/24 03:26 Pulse 89 10/23/24 03:26 Resp 18 10/23/24 03:26 BP 144/80 H 10/23/24 03:26 Pulse Ox 97 10/23/24 03:26 O2 Del Method Room Air 10/23/24 03:26 BMI result Body Mass Index 43.0 Const: Other: Alert Orientation/consciousness: patient oriented x3 Resp: Other: Nonlabored respirations, speaking in full sentences, scattered expiratory wheezes noted Cardio: Other: Normal peripheral perfusion Skin: Other: Warm dry no rash Neuro: General: patient oriented x3, gait normal, no focal motor deficits and CN's II-XI intact bilaterally Psych: Other: Cooperative Medications Administered Discontinued Medications Generic Name Dose Route Start Last Admin Trade Name Freq PRN Reason Stop Dose Admin Albuterol Sulfate 7.5 mg 10/23/24 00:34 10/23/24 00:49 Albuterol Sulfate (0.083%) 2.5 Mg/3 Ml Vial.Neb INHALE 10/23/24 00:35 7.5 mg ONCE ONE Administration Prednisone 40 mg 10/23/24 00:34 10/23/24 00:49 Prednisone 20 Mg Tablet PO 10/23/24 00:35 40 mg ONCE ONE Administration Medical Decision Making Medical Decision Making MDM Narrative: 29-year-old male with a history of morbid obesity and asthma presents with asthma symptoms since earlier today. Denies preceding cough or cold symptoms no fevers. No known trigger. Problem: Asthma History: Per patient I have considered the following differential diagnoses: Asthma exacerbation, pneumonia, bronchitis, viral syndrome Plan: Chest x-ray screening labs and viral panel obtained, we will give an updraft and steroid I have independently reviewed the following tests: CXR: MPRESSION: 1. No acute cardiopulmonary process demonstrated. Labs: Slight leukocytosis, not anemic, no electrolyte abnormality, viral panel neg Lab Data 10/22/24 20:08 10/22/24 20:08 Labs: Lab Results 10/22/24 10/23/24 Range/Units 20:08 00:34 WBC 10.9 H (4.8-10.8) X10*3/uL RBC 5.15 (4.60-5.80) X10*6/uL Hgb 14.5 (14.0-18.0) g/dl Hct 41.6 L (42.0-52.0) % MCV 80.8 (80.0-98.0) fL MCH 28.2 (27.0-33.0) pg MCHC 34.9 (31.0-36.0) g/dl RDW 12.1 (11.0-16.0) % Plt Count 349 (160-400) X10*3/uL MPV 9.5 (9.4-12.4) fL Immature Gran % (Auto) 0.4 (0.0-0.4) % Neut % (Auto) 49.3 (45-73) % Lymph % (Auto) 29.2 (20-40) % [place] % (Auto) 9.3 (2-11) % Eos % (Auto) 10.4 H (0-4) % Baso % (Auto) 1.4 (0-2) % Lymph # (Auto) 3.2 (1.2-4.9) X10*3/uL [place] # (Auto) 1.0 (0.1-1.2) X10*3/uL Eos # (Auto) 1.1 H (0.0-0.4) X10*3/uL Baso # (Auto) 0.2 (0.0-0.2) X10*3/uL Abs Immat Gran (auto) 0.04 H (0.00-0.03) X10*3/uL Absolute Neuts (auto) 5.4 (2.0-8.3) x10*3/uL Absolute Nucleated RBC 0.000 (0.0-0.012) X10*3/uL Nucleated RBC % (auto) 0.0 (0.0-0.2) /100WBC Sodium 141 (135-145) mmol/L Potassium 4.4 (3.3-5.1) mmol/L Chloride 107 (96-108) mmol/L Carbon Dioxide 25 (22-29) mmol/L Anion Gap 13 (12-20) BUN 11 (9-16) mg/dL Creatinine 0.95 (0.5-1.4) mg/dL Estim Creat Clear Calc 134.7 Estimated GFR > 60 Random Glucose 118 H (60-115) mg/dL Calcium 9.1 (8.4-10.2) mg/dL Total Bilirubin 0.4 (0.0-1.0) mg/dL AST 26 (5-37) U/L ALT 34 (0-40) U/L Alkaline Phosphatase 80 (39-117) U/L Total Protein 7.9 (6.5-8.0) g/dL Albumin 4.1 (3.5-5.0) g/dL Influenza Type A (PCR) NEGATIVE (Negative) Influenza Type B (PCR) NEGATIVE (Negative) RSV RNA Qual (PCR) NEGATIVE (Negative) SARS-CoV-2 RNA (RT-PCR) NEGATIVE (Negative) Discharge Plan Discharge Clinical Impression: Asthma Patient Disposition: Home, Self-Care Instructions: Asthma (ED) Additional Instructions: You are being treated for an asthma exacerbation. See home care instructions. Use your home inhaler and nebulizer treatment as directed, take the steroid as directed. All of your screening labs were normal, you were screened for influenza RSV and COVID. The chest x-ray is clear. Follow up with your primary care provider as needed. Prescriptions: New prednisone 20 mg tablet 40 mg PO DAILY Qty: 8 0RF No Action (DME) nebulizer and compressor Device See Rx Instructions .Route Qty: 1 0RF Rx Instructions: As directed (DME) nebulizers [Aeroneb Go Nebulizer] Misc See Rx Instructions .Route Qty: 1 0RF Rx Instructions: As directed albuterol sulfate 2.5 mg /3 mL (0.083 %) Solution For Nebulization 2.5 mg inhalation Q4H PRN (Reason: Shortness Of Breath/Wheezing) Qty: 50 0RF doxycycline monohydrate 100 mg Capsule 100 mg PO BID Qty: 10 0RF prednisone 20 mg tablet 40 mg PO DAILY Qty: 10 0RF albuterol sulfate 90 mcg/actuation HFA aerosol inhaler 1 inh inhalation QID PRN (Reason: shortness of breath or wheezing) Qty: 6.7 0RF azithromycin 250 mg tablet See Rx Instructions .ROUTE .COMPLEX Qty: 6 0RF Rx Instructions: For 250 mg dose pack: take 500 mg today (day 1), then 250 mg for 4 days (days 2-5) albuterol sulfate 90 mcg/actuation HFA aerosol inhaler 2 puff inhalation Q4-6H PRN (Reason: shortness of breath or wheezing) Qty: 8.5 2RF prednisone 50 mg tablet 50 mg PO DAILY Qty: 4 0RF fluticasone propionate 250 mcg/actuation blister with device 2 inh inhalation Q12H Qty: 60 2RF prednisone 20 mg tablet 40 mg PO DAILY Qty: 10 0RF Interventions: ED Discharge Assessment Last Done: 10/23/24 03:26 Discharge Date/Time: 10/23/24 03:28 Print Language: Stateless
[2024-10-23 03:25] VITALS: BP 144/80; PULSE 89; RESP 18; TEMP 36.3; O2SAT 97
[2024-10-23 03:26] VITALS: BP 144/80; PULSE 89; RESP 18; TEMP 36.3; O2SAT 97
== END 2024-10-23 03:28 | disposition home or self-care (01) ==
PROVIDERS: Physician Assistant Medical; Emergency Provider Emergency Medicine; PCP Internal Medicine
DX: J45.909 Unspecified asthma, uncomplicated (principal); E66.01 Morbid (severe) obesity due to excess calories; R06.02 Shortness of breath; Z68.41 Body mass index [BMI] 40.0-44.9, adult; Z03.818 Encounter for observation for suspected exposure to other biological agents ruled out; Z79.899 Other long term (current) drug therapy
CPT/HCPCS: 0241U; 36415; 71045; 80053; 85025; 99284

== ENCOUNTER → 2024-10-23 00:31 | Outpatient (BNV) | payer OTHER, SELFPAY | PROVIDERS: PCP Internal Medicine; Visit Provider Radiology Diagnostic Radiology | DX: R06.02 Shortness of breath (principal) | CPT/HCPCS: 71045 ==

== ENCOUNTER 2024-10-29 23:35 | Emergency (ER) | payer OTHER, SELFPAY ==
--- NOTE | ~2024-10-29 | XR_ITS ---
CLINICAL HISTORY: shortness of breath, chest tightness 1 view chest x-ray Comparison: CR - XR CHEST 1V - 10/23/24 00:48 EDT Findings: The lungs are clear. Heart size is normal. No acute fracture. IMPRESSION: 1. No acute findings. This document has been electronically signed by: Corbin Castrejon MD on 10/30/2024 01:08:10
[2024-10-29 23:49] VITALS: BP 137/88; PULSE 92; RESP 18; TEMP 36.7; O2SAT 93; BMI 39.9
[2024-10-30 00:18] LABS: Basophils Absolute Auto 0.2 X10*3/uL (0.0-0.2); Basophils Percent Auto 1.2 % (0-2); Eosinophils Absolute Auto 1.4 X10*3/uL (0.0-0.4); Hematocrit 38.3 % (42.0-52.0); Hemoglobin 13.9 g/dl (14.0-18.0); Imm Gran Abs Auto 0.05 X10*3/uL (0.00-0.03); Imm Gran Pct Auto 0.4 % (0.0-0.4); Lymphocytes Absolute Auto 4.1 X10*3/uL (1.2-4.9); Lymphocytes Percent Auto 32.6 % (20-40); MANUAL DIFF FLAG NO; Mean Corpuscular HGB Conc 36.3 g/dl (31.0-36.0); Mean Corpuscular Hemoglobin 28.3 pg (27.0-33.0); Mean Platelet Volume 9.4 fL (9.4-12.4); Monocytes Percent Auto 7.7 % (2-11); Neutrophils Absolute Auto 5.9 x10*3/uL (2.0-8.3); Neutrophils Percent Auto 47.1 % (45-73); Platelet Count 350 X10*3/uL (160-400); Red Blood Count 4.91 X10*6/uL (4.60-5.80); Red Cell Distribution Width 11.9 % (11.0-16.0); White Blood Count 12.4 X10*3/uL (4.8-10.8)
[2024-10-30] MEDS: Albuterol Sulfate 7.5 MG, Albuterol Sulfate (0.083%) 2.5 MG 10 MG INHALE (00:28)
[2024-10-30 00:31] VITALS: BP 118/53; PULSE 94; RESP 20; TEMP 36.8; O2SAT 92
--- NOTE | 2024-10-30 00:37 | ED.ASTHMA ---
HPI - Asthma General Chief Complaint: Asthma Stated Complaint: Asthma Time Seen by Provider: 10/30/24 00:33 Source: patient Mode of arrival: ambulatory Limitations: no limitations History of Present Illness ED Provider: Dr. Briseida Manzano HPI Narrative: Patient comes to the emergency room complaining of an asthma exacerbation. Patient states that since yesterday he has been using his inhaler more than usual and has minimal improvement with his inhaler. Patient denies any fever or chills. Related Data Previous Rx's ?Medication ?Instructions ?Recorded nebulizer and compressor #1 ea 09/15/21 nebulizers (Aeroneb Go Nebulizer) #1 ea 04/18/22 albuterol sulfate 2.5 mg/3 mL 2.5 mg (3 mL) inhalation Q4H PRN 09/07/24 (0.083 %) solution for nebulization Shortness Of Breath/Wheezing #50 ea albuterol sulfate 90 mcg/actuation 1 inh inhalation QID PRN shortness 09/07/24 aerosol inhaler of breath or wheezing #6.7 grams doxycycline monohydrate 100 mg 100 mg PO BID #10 caps 09/07/24 capsule prednisone 20 mg tablet 40 mg (2 x 20 mg) PO DAILY #10 tabs 09/07/24 prednisone 20 mg tablet 40 mg (2 x 20 mg) PO DAILY #10 tabs 09/23/24 azithromycin 250 mg tablet See Rx Instructions PO .COMPLEX #6 09/28/24 tabs albuterol sulfate 90 mcg/actuation 2 puff inhalation Q4-6H PRN 10/07/24 aerosol inhaler shortness of breath or wheezing #8.5 grams fluticasone propionate 250 2 inh inhalation Q12H #60 ea 10/07/24 mcg/actuation blister powder for inhalation prednisone 50 mg tablet 50 mg PO DAILY #4 tabs 10/07/24 prednisone 20 mg tablet 40 mg (2 x 20 mg) PO DAILY #8 tabs 10/23/24 albuterol sulfate 90 mcg/actuation 2 puff inhalation Q4-6H PRN 10/30/24 aerosol inhaler shortness of breath or wheezing #8.5 grams fluticasone 500 mcg-salmeterol 50 1 inh inhalation BID #60 ea 10/30/24 mcg/dose blistr powdr for inhalation (Advair Diskus) Allergies Allergy/AdvReac Type Severity Reaction Status Date / Time shellfish derived Allergy Severe SHORTNESS Verified 10/29/24 23:50 OF BREATH, SWELLING shrimp Allergy Severe ANAPHYLAXIS Verified 10/29/24 23:50 Review of Systems Review of Systems: Constitutional : No Weight loss, No Fever, No Chills, No Night Sweats, No Fatigue, No Malaise ENT/Mouth : No Hearing loss, No Ear Pain, No Nasal Congestion, No Sinus Pain, No Hoarseness, No sore throat, No Rhinorrhea, No Swallowing Difficulty Eyes: No Eye Pain, No Swelling, No Redness, No Foreign Body, No Discharge, No Vision Changes Cardiovascular : No Chest Pain, No SOB, No Dyspnea on Exertion, No Orthopnea, No Edema, No Palpitations Respiratory : complaining of cough, asthma exacerbations Gastrointestinal : No Nausea, No Vomiting, No Diarrhea, No Constipation, No abdominal Pain, No Hematochezia, No Melena Genitourinary : no irregular bleeding, No Dysuria, No Urinary Frequency, No Hematuria, No Urinary Incontinence, No Urgency, No Flank Pain, No Urinary Flow Changes, No Hesitancy Musculoskeletal : No joint pain, No Myalgias, No Joint Swelling Skin : No Skin Lesions, No rash Neuro : No Weakness, No Numbness, No Paresthesias, No Loss of Consciousness, No Dizziness, No Headache Psych : No Anxiety/Panic, No Depression, No SI/HI/AH/VH, No Social Issues, Heme/Lymph: No Bruising, No Bleeding,No Lymphadenopathy Endocrine : No Polyuria, No Polydipsia, No Temperature Intolerance [facility] Past Medical History Medical History Asthma Pneumonia due to 2019 novel coronavirus Asthma Family History Family History Mother Asthma Social History Social History Household Members: None Housing: House Do you presently have visiting nurse or other home services: No Alcohol intake: never Patient Tobacco Use Status: Never used Tobacco Smoked in Last 30 Days: No Use of substances other than those prescribed or required for medical reasons: No Advance Directives: No Advance Directives Information Provided: Yes Do you have a plan to hurt others: No Plan service: No Current occupational status: unemployed Physical Exam Vital Signs: Vital Signs: Last Vital Signs Temp 98.3 F 10/30/24 00:31 Pulse 94 10/30/24 00:31 Resp 20 10/30/24 00:31 BP 118/53 L 10/30/24 00:31 Pulse Ox 92 10/30/24 00:31 O2 Del Method Room Air 10/30/24 00:31 BMI result Body Mass Index 39.9 Const: Other: Appearance: Alert. Oriented X3. No acute distress. Eyes: Pupils equal, round and reactive to light. ENT: Pharynx normal. Neck: Normal inspection. Neck supple. No lymph nodes noted. No crepitus CVS: Normal heart rate and rhythm. Pulses normal. Normal S1 and S2 Respiratory: No respiratory distress. mild bilateral wheezing, fair air movement Abdomen: Soft and nontender. No rigidity. No distention. Skin: Skin warm and dry. Normal skin color. Normal skin turgor. Extremities: No lower extremity edema. No Lacerations. No Rash Neuro: Oriented X 3. No motor deficit. No sensory deficit. Moving all extremities. No slurred speech. CN 2 through 12 grossly intact Psych: calm, cooperative, normal affect Course Course Course Narrative: bronch protocol has been started albuterol and magnesium IV were given Medications Administered Discontinued Medications Generic Name Dose Route Start Last Admin Trade Name Freq PRN Reason Stop Dose Admin Albuterol Sulfate 7.5 mg/ 10 mg 10/30/24 00:26 10/30/24 00:28 Albuterol Sulfate 2.5 mg INHALE 10/30/24 00:27 10 mg ONCE ONE Administration Magnesium Sulfate 2 gm in 50 mls @ 25 mls/hr 10/30/24 00:34 10/30/24 02:42 Magnesium Sulfate/H2o IV 10/30/24 02:33 Infused ONCE ONE Infusion Methylprednisolone Sodium Succinate 125 mg 10/30/24 00:34 10/30/24 01:03 Methylprednisolone Sod Succ 125 Mg/2 Ml Vial IVPUSH 10/30/24 00:35 125 mg ONCE ONE Administration Medical Decision Making Medical Decision Making [facility] Narrative: my interpretation of labs: Patient's white blood cell count 12.4, chronic for the patient, chemistry within normal limits, serology negative for RSV COVID and flu, x-ray negative for consolidations patient ambulated around the emergency room, steady 94%, no chest pain or shortness of breath, patient states that he feels ready to be discharged home Differential Diagnosis Differential Diagnoses: The differential diagnosis associated with the presentation includes ( asthma, pneumonia, viral URI) Admission/Observation Consideration of admission/observation: Escalation of care including admission/observation considered ( given patient's recurrent symptoms and presentation of today, observation / admission was considered) Lab Data MDM Lab Attestation statement: I reviewed the patient's lab results. 10/30/24 00:14 10/30/24 00:14 Labs: Lab Results 10/30/24 Range/Units 00:14 WBC 12.4 H (4.8-10.8) X10*3/uL RBC 4.91 (4.60-5.80) X10*6/uL Hgb 13.9 L (14.0-18.0) g/dl Hct 38.3 L (42.0-52.0) % MCV 78.0 L (80.0-98.0) fL MCH 28.3 (27.0-33.0) pg MCHC 36.3 H (31.0-36.0) g/dl RDW 11.9 (11.0-16.0) % Plt Count 350 (160-400) X10*3/uL MPV 9.4 (9.4-12.4) fL Immature Gran % (Auto) 0.4 (0.0-0.4) % Neut % (Auto) 47.1 (45-73) % Lymph % (Auto) 32.6 (20-40) % [place] % (Auto) 7.7 (2-11) % Eos % (Auto) 11.0 H (0-4) % Baso % (Auto) 1.2 (0-2) % Lymph # (Auto) 4.1 (1.2-4.9) X10*3/uL [place] # (Auto) 1.0 (0.1-1.2) X10*3/uL Eos # (Auto) 1.4 H (0.0-0.4) X10*3/uL Baso # (Auto) 0.2 (0.0-0.2) X10*3/uL Abs Immat Gran (auto) 0.05 H (0.00-0.03) X10*3/uL Absolute Neuts (auto) 5.9 (2.0-8.3) x10*3/uL Absolute Nucleated RBC 0.000 (0.0-0.012) X10*3/uL Nucleated RBC % (auto) 0.0 (0.0-0.2) /100WBC Sodium 139 (135-145) mmol/L Potassium 3.8 (3.3-5.1) mmol/L Chloride 109 H (96-108) mmol/L Carbon Dioxide 23 (22-29) mmol/L Anion Gap 11 L (12-20) BUN 10 (9-16) mg/dL Creatinine 0.81 (0.5-1.4) mg/dL Estim Creat Clear Calc 151.6 Estimated GFR > 60 Random Glucose 119 H (60-115) mg/dL Calcium 9.0 (8.4-10.2) mg/dL Total Bilirubin 0.2 (0.0-1.0) mg/dL AST 27 (5-37) U/L ALT 30 (0-40) U/L Alkaline Phosphatase 87 (39-117) U/L Total Protein 7.5 (6.5-8.0) g/dL Albumin 3.9 (3.5-5.0) g/dL Influenza Type A (PCR) NEGATIVE (Negative) Influenza Type B (PCR) NEGATIVE (Negative) RSV RNA Qual (PCR) NEGATIVE (Negative) SARS-CoV-2 RNA (RT-PCR) NEGATIVE (Negative) Independent Interpretation I performed an independent interpretation of an: Plain X-Ray Radiology Impression Discussion of test interpretation with radiology: I have reviewed the radiologist's reading. Radiologist Impression: The lungs are clear. Heart size is normal. No acute fracture. Critical Care Time Critical Care Time Critical Care Time: Yes Total Critical Care Time: 60 Attestation: I have personally provided critical care time. Time includes review of lab data, radiology results, discussion with consultants, and monitoring for potential decompensation. Intervention performed as documented. Discharge Plan Discharge Clinical Impression: Asthma Qualifiers: Asthma severity: unspecified severity Asthma persistence: unspecified Asthma complication type: unspecified Qualified Code(s): J45.909 - Unspecified asthma, uncomplicated Patient Disposition: Home, Self-Care Instructions: Asthma (ED) Additional Instructions: Please follow-up with your primary care physician tomorrow. If you have any worsening or new symptoms, please return to the emergency room or call 911 Prescriptions: New fluticasone propion-salmeterol [Advair Diskus] 500-50 mcg/dose blister with device 1 inh inhalation BID Qty: 60 1RF albuterol sulfate 90 mcg/actuation HFA aerosol inhaler 2 puff inhalation Q4-6H PRN (Reason: shortness of breath or wheezing) Qty: 8.5 1RF No Action (DME) nebulizer and compressor Device See Rx Instructions .Route Qty: 1 0RF Rx Instructions: As directed (DME) nebulizers [Aeroneb Go Nebulizer] [facility] See Rx Instructions .Route Qty: 1 0RF Rx Instructions: As directed albuterol sulfate 2.5 mg /3 mL (0.083 %) Solution For Nebulization 2.5 mg inhalation Q4H PRN (Reason: Shortness Of Breath/Wheezing) Qty: 50 0RF doxycycline monohydrate 100 mg Capsule 100 mg PO BID Qty: 10 0RF prednisone 20 mg tablet 40 mg PO DAILY Qty: 10 0RF albuterol sulfate 90 mcg/actuation HFA aerosol inhaler 1 inh inhalation QID PRN (Reason: shortness of breath or wheezing) Qty: 6.7 0RF azithromycin 250 mg tablet See Rx Instructions .ROUTE .COMPLEX Qty: 6 0RF Rx Instructions: For 250 mg dose pack: take 500 mg today (day 1), then 250 mg for 4 days (days 2-5) albuterol sulfate 90 mcg/actuation HFA aerosol inhaler 2 puff inhalation Q4-6H PRN (Reason: shortness of breath or wheezing) Qty: 8.5 2RF prednisone 50 mg tablet 50 mg PO DAILY Qty: 4 0RF fluticasone propionate 250 mcg/actuation blister with device 2 inh inhalation Q12H Qty: 60 2RF prednisone 20 mg tablet 40 mg PO DAILY Qty: 10 0RF prednisone 20 mg tablet 40 mg PO DAILY Qty: 8 0RF Print Language: Vietnamese
[2024-10-30 00:38] LABS: Alanine Aminotransferase 30 U/L (0-40); Albumin Level 3.9 g/dL (3.5-5.0); Alkaline Phosphatase 87 U/L (39-117); Anion Gap 11 (12-20); Aspartate Amino Transferase 27 U/L (5-37); Bilirubin Total 0.2 mg/dL (0.0-1.0); Blood Urea Nitrogen 10 mg/dL (9-16); Carbon Dioxide 23 mmol/L (22-29); Chloride 109 mmol/L (96-108); Creatinine Clr Calc Pharmacy 151.6; Estimated Glomerular Filt Rate > 60; Glucose Random 119 mg/dL (60-115); Potassium 3.8 mmol/L (3.3-5.1); Sodium 139 mmol/L (135-145); Total Protein 7.5 g/dL (6.5-8.0)
[2024-10-30 00:55] LABS: Influenza A PCR NEGATIVE (Negative); Influenza B PCR NEGATIVE (Negative); Resp Syncy Virus RNA Qual PCR NEGATIVE (Negative); SARS COV2 PCR INHOUSE NEGATIVE (Negative)
[2024-10-30] MEDS: methylPREDNISolone Sod Succ 125 MG/2 ML VIAL IVPUSH (01:03)
[2024-10-30] MEDS: Magnesium Sulfate/H2O 2 GM/50 ML PIGGYBACK IV (01:03)
--- NOTE | 2024-10-30 02:56 | PC.NURSE ---
ambulation trial, pt tolerated well, O2 94%, HR 110. aware
[2024-10-30 03:20] VITALS: BP 115/76; PULSE 96; RESP 20; TEMP 36.8; O2SAT 94
[2024-10-30 03:22] VITALS: BP 115/76; PULSE 96; RESP 20; TEMP 36.8; O2SAT 94
== END 2024-10-30 03:22 | disposition home or self-care (01) ==
PROVIDERS: Emergency Provider Emergency Medicine
DX: J45.909 Unspecified asthma, uncomplicated (principal); R06.02 Shortness of breath; R07.89 Other chest pain; Z03.818 Encounter for observation for suspected exposure to other biological agents ruled out; Z79.899 Other long term (current) drug therapy
CPT/HCPCS: 0241U; 36415; 71045; 80053; 85025; 96365; 96366; 96375; 99284; J2919; J3475

== ENCOUNTER → 2024-10-29 23:55 | Outpatient (BNV) | payer OTHER, SELFPAY | PROVIDERS: Emergency Provider Emergency Medicine; Visit Provider Radiology Diagnostic Radiology | DX: R07.89 Other chest pain (principal); R06.02 Shortness of breath | CPT/HCPCS: 71045 ==

== ENCOUNTER 2024-11-06 18:12 | Emergency (ER) | payer OTHER, SELFPAY ==
[2024-11-06 18:15] VITALS: BP 132/76; PULSE 69; RESP 19; TEMP 36.6; O2SAT 98; BMI 41.6
--- NOTE | 2024-11-06 18:19 | ED.GENADULT ---
HPI - General Adult General Chief complaint: Allergic Reaction Stated complaint: possible allergic reaction - tight throat Time Seen by Provider: 11/06/24 19:04 Source: patient Mode of arrival: ambulatory Limitations: no limitations History of Present Illness ED Provider: HPI narrative: Patient's allergic reaction to shrimps had food in the restaurant not supposed to have shrimps but likely food was cook in the [employer] which had shrimp before within an hour of hitting the food patient noticed throat tightness no itching had slight shortness a breath patient has received prednisone 40 mg and Benadryl and Pepcid prior to my evaluation feeling patient is feeling much better breathing better Related Data Previous Rx's ?Medication ?Instructions ?Recorded nebulizer and compressor #1 ea 09/15/21 nebulizers (Aeroneb Go Nebulizer) #1 ea 04/18/22 albuterol sulfate 2.5 mg/3 mL 2.5 mg (3 mL) inhalation Q4H PRN 09/07/24 (0.083 %) solution for nebulization Shortness Of Breath/Wheezing #50 ea albuterol sulfate 90 mcg/actuation 1 inh inhalation QID PRN shortness 09/07/24 aerosol inhaler of breath or wheezing #6.7 grams doxycycline monohydrate 100 mg 100 mg PO BID #10 caps 09/07/24 capsule prednisone 20 mg tablet 40 mg (2 x 20 mg) PO DAILY #10 tabs 09/07/24 prednisone 20 mg tablet 40 mg (2 x 20 mg) PO DAILY #10 tabs 09/23/24 azithromycin 250 mg tablet See Rx Instructions PO .COMPLEX #6 09/28/24 tabs albuterol sulfate 90 mcg/actuation 2 puff inhalation Q4-6H PRN 10/07/24 aerosol inhaler shortness of breath or wheezing #8.5 grams fluticasone propionate 250 2 inh inhalation Q12H #60 ea 10/07/24 mcg/actuation blister powder for inhalation prednisone 50 mg tablet 50 mg PO DAILY #4 tabs 10/07/24 prednisone 20 mg tablet 40 mg (2 x 20 mg) PO DAILY #8 tabs 10/23/24 albuterol sulfate 90 mcg/actuation 2 puff inhalation Q4-6H PRN 10/30/24 aerosol inhaler shortness of breath or wheezing #8.5 grams fluticasone 500 mcg-salmeterol 50 1 inh inhalation BID #60 ea 10/30/24 mcg/dose blistr powdr for inhalation (Advair Diskus) diphenhydramine HCl 25 mg capsule 50 mg (2 x 25 mg) PO TID PRN 11/06/24 (Benadryl) allergic reaction #20 caps epinephrine 0.3 mg/0.3 mL 0.3 mg (0.3 mL) IM Q10M PRN 11/06/24 injection, auto-injector (EpiPen anaphylaxis #2 ea 2-Arvind) prednisone 20 mg tablet 40 mg (2 x 20 mg) PO DAILY #10 tabs 11/06/24 Allergies Allergy/AdvReac Type Severity Reaction Status Date / Time shellfish derived Allergy Severe SHORTNESS Verified 11/06/24 18:16 OF BREATH, SWELLING shrimp Allergy Severe ANAPHYLAXIS Verified 11/06/24 18:16 Review of Systems Review of Systems: Yes all other systems are reviewed and are negative PMFSH Past Medical History Medical History Asthma Pneumonia due to 2019 novel coronavirus Asthma Family History Family History Mother Asthma Social History Social History Household Members: None Housing: House Do you presently have visiting nurse or other home services: No Alcohol intake: never Patient Tobacco Use Status: Never used Tobacco Smoked in Last 30 Days: No Use of substances other than those prescribed or required for medical reasons: No Advance Directives: No Advance Directives Information Provided: Yes Do you have a plan to hurt others: No Plan service: No Current occupational status: unemployed Physical Exam ED Vital Signs: Vital Signs - 24 hr 11/06/24 18:15 11/06/24 19:57 11/06/24 19:58 Temperature 98 F 98.1 F 98.1 F Pulse Rate 69 87 87 Respiratory Rate 19 16 16 Blood Pressure 132/76 113/59 L 113/59 L Pulse Oximetry 98 96 96 Oxygen Delivery Method Room Air Room Air Room Air BMI result Body Mass Index 41.6 Appearance: Alert. Oriented X3. No acute distress. Eyes: PERRLA, No Nystagmus ENT: Pharynx normal. Oral Mucosa moist uvula normal no stridor Neck: Normal inspection. Neck supple. CVS: Normal heart rate and rhythm. Pulses normal. Respiratory: No respiratory distress. Equal air entry bilateral, no wheezing/rales/rhonchi Abdomen: Soft and nontender. Bowel sounds are present, no mass palpable, no CVA tenderness Skin: Skin warm and dry. Normal skin color. Normal skin turgor. Extremities: No lower extremity edema. No calf tenderness Neuro: Oriented X 3. No motor deficit. No sensory deficit.No cerebellar signs , cranial nerves II-XII intact Course Course Course Narrative: RME, this is a rapid medical exam performed by Bhaskar Figueroa please refer to primary provider for complete H&P- 29-year-old male with history of asthma presents for evaluation of a tightness in his throat. The patient reports an allergy to shrimp and shellfish. He reports that he was eating at a restaurant. He did not knowingly ingest any seafood or shellfish, but he started to feel as if his throat was closing. On exam he has no oral, perioral, retropharyngeal edema, no stridor on auscultation. The patient will be given a dose of prednisone, Benadryl, Pepcid and will be observed in the ER. Medications Administered Discontinued Medications Generic Name Dose Route Start Last Admin Trade Name Freq PRN Reason Stop Dose Admin Diphenhydramine HCl 50 mg 11/06/24 18:16 11/06/24 18:33 Diphenhydramine Hcl 25 Mg Capsule PO 11/06/24 18:17 50 mg ONCE ONE Administration Famotidine 20 mg 11/06/24 18:16 11/06/24 18:33 Famotidine 20 Mg Tablet PO 11/06/24 18:17 20 mg ONCE ONE Administration Prednisone 40 mg 11/06/24 18:16 11/06/24 18:33 Prednisone 20 Mg Tablet PO 11/06/24 18:17 40 mg ONCE ONE Administration Medical Decision Making Medical Decision Making [facility] Narrative: Patient with mild allergic reaction to shrimp improved after p.o. prednisone and Benadryl and Pepcid will discharge patient home on steroids for precautions for future in case shortness of breath continues also will give EpiPen as patient does have severe asthma Discharge Plan Discharge Clinical Impression: Allergic reaction Patient Disposition: Home, Self-Care Instructions: General Allergic Reaction (ED) Additional Instructions: Care and cautions as advised Take Benadryl 2 tablets every 6 hours as needed for allergic reaction EpiPen for emergencies as advised Prednisone as prescribed if symptoms continues Prescriptions: New epinephrine [EpiPen 2-Arvind] 0.3 mg/0.3 mL auto-injector 0.3 mg IM Q10M PRN (Reason: anaphylaxis) Qty: 2 0RF Rx Instructions: for 2 doses diphenhydramine HCl [Benadryl] 25 mg capsule 50 mg PO TID PRN (Reason: allergic reaction) Qty: 20 0RF prednisone 20 mg tablet 40 mg PO DAILY Qty: 10 0RF No Action (DME) nebulizer and compressor Device See Rx Instructions .Route Qty: 1 0RF Rx Instructions: As directed (DME) nebulizers [Aeroneb Go Nebulizer] Misc See Rx Instructions .Route Qty: 1 0RF Rx Instructions: As directed albuterol sulfate 2.5 mg /3 mL (0.083 %) Solution For Nebulization 2.5 mg inhalation Q4H PRN (Reason: Shortness Of Breath/Wheezing) Qty: 50 0RF doxycycline monohydrate 100 mg Capsule 100 mg PO BID Qty: 10 0RF prednisone 20 mg tablet 40 mg PO DAILY Qty: 10 0RF albuterol sulfate 90 mcg/actuation HFA aerosol inhaler 1 inh inhalation QID PRN (Reason: shortness of breath or wheezing) Qty: 6.7 0RF azithromycin 250 mg tablet See Rx Instructions .ROUTE .COMPLEX Qty: 6 0RF Rx Instructions: For 250 mg dose pack: take 500 mg today (day 1), then 250 mg for 4 days (days 2-5) albuterol sulfate 90 mcg/actuation HFA aerosol inhaler 2 puff inhalation Q4-6H PRN (Reason: shortness of breath or wheezing) Qty: 8.5 2RF prednisone 50 mg tablet 50 mg PO DAILY Qty: 4 0RF fluticasone propionate 250 mcg/actuation blister with device 2 inh inhalation Q12H Qty: 60 2RF prednisone 20 mg tablet 40 mg PO DAILY Qty: 10 0RF prednisone 20 mg tablet 40 mg PO DAILY Qty: 8 0RF fluticasone propion-salmeterol [Advair Diskus] 500-50 mcg/dose blister with device 1 inh inhalation BID Qty: 60 1RF albuterol sulfate 90 mcg/actuation HFA aerosol inhaler 2 puff inhalation Q4-6H PRN (Reason: shortness of breath or wheezing) Qty: 8.5 1RF Interventions: ED Discharge Assessment Last Done: 11/06/24 19:58 Discharge Date/Time: 11/06/24 19:58 Print Language: Tamazight
[2024-11-06] MEDS: Famotidine 20 MG TABLET PO (18:33)
[2024-11-06] MEDS: predniSONE 20 MG TABLET 40 MG PO (18:33)
[2024-11-06] MEDS: diphenhydrAMINE HCL 25 MG CAPSULE 50 MG PO (18:33)
[2024-11-06 19:57] VITALS: BP 113/59; PULSE 87; RESP 16; TEMP 36.7; O2SAT 96
[2024-11-06 19:58] VITALS: BP 113/59; PULSE 87; RESP 16; TEMP 36.7; O2SAT 96
== END 2024-11-06 19:58 | disposition home or self-care (01) ==
PROVIDERS: Emergency Provider Internal Medicine
DX: T78.40XA Allergy, unspecified, initial encounter (principal); X58.XXXA Exposure to other specified factors, initial encounter
CPT/HCPCS: 99283; 99284

== ENCOUNTER 2024-11-08 16:11 | Emergency (ER) | payer OTHER, SELFPAY ==
--- NOTE | ~2024-11-08 | XR_ITS ---
CLINICAL HISTORY: chest pain 1 view chest x-ray Comparison: CR - XR CHEST 1V - 10/30/24 00:02 EDT Findings: No consolidation or effusion. Normal size heart. No acute fracture. IMPRESSION: 1. No acute findings. This document has been electronically signed by: Srikanth Kearney MD, PHD on 11/08/2024 19:36:52
--- NOTE | 2024-11-08 16:16 | ECG_ITS ---
Test Reason : chest pain Blood Pressure : */* mmHG Vent. Rate : 87 BPM Atrial Rate : 87 BPM P-R Int : 162 ms QRS Dur : 138 ms QT Int : 388 ms P-R-T Axes : 25 17 50 degrees QTcB Int : 466 ms Normal sinus rhythm Left bundle branch block Abnormal ECG When compared with ECG of 28-Sep-2024 19:10, No significant change was found Referred By: Mason Figueroa Electronically Signed By: HUSEYIN DORANTES MD
[2024-11-08 16:32] VITALS: BP 141/83; PULSE 82; RESP 16; TEMP 36.9; O2SAT 94; BMI 43.1
[2024-11-08 16:32] LABS: MANUAL DIFF FLAG NO
--- NOTE | 2024-11-08 16:33 | ED.GENADULT ---
HPI - General Adult General Chief complaint: Chest Pain Stated complaint: Chest pain Time Seen by Provider: 11/08/24 18:50 Source: patient Mode of arrival: ambulatory Limitations: no limitations History of Present Illness ED Provider: Skinny Willett HPI narrative: 29 yold male with pmh of asthma presents to the ED for chest pain that occured 1.5 hours before coming to the ED. patient states chest pain occured 1.5 hours before coming to the ED and now its resolved. Patient states no leg swelling, calf pain, recent long travel, or recent surgery Related Data Previous Rx's ?Medication ?Instructions ?Recorded nebulizer and compressor #1 ea 09/15/21 nebulizers (Aeroneb Go Nebulizer) #1 ea 04/18/22 albuterol sulfate 2.5 mg/3 mL 2.5 mg (3 mL) inhalation Q4H PRN 09/07/24 (0.083 %) solution for nebulization Shortness Of Breath/Wheezing #50 ea albuterol sulfate 90 mcg/actuation 1 inh inhalation QID PRN shortness 09/07/24 aerosol inhaler of breath or wheezing #6.7 grams doxycycline monohydrate 100 mg 100 mg PO BID #10 caps 09/07/24 capsule prednisone 20 mg tablet 40 mg (2 x 20 mg) PO DAILY #10 tabs 09/07/24 prednisone 20 mg tablet 40 mg (2 x 20 mg) PO DAILY #10 tabs 09/23/24 azithromycin 250 mg tablet See Rx Instructions PO .COMPLEX #6 09/28/24 tabs albuterol sulfate 90 mcg/actuation 2 puff inhalation Q4-6H PRN 10/07/24 aerosol inhaler shortness of breath or wheezing #8.5 grams fluticasone propionate 250 2 inh inhalation Q12H #60 ea 10/07/24 mcg/actuation blister powder for inhalation prednisone 50 mg tablet 50 mg PO DAILY #4 tabs 10/07/24 prednisone 20 mg tablet 40 mg (2 x 20 mg) PO DAILY #8 tabs 10/23/24 albuterol sulfate 90 mcg/actuation 2 puff inhalation Q4-6H PRN 10/30/24 aerosol inhaler shortness of breath or wheezing #8.5 grams fluticasone 500 mcg-salmeterol 50 1 inh inhalation BID #60 ea 10/30/24 mcg/dose blistr powdr for inhalation (Advair Diskus) diphenhydramine HCl 25 mg capsule 50 mg (2 x 25 mg) PO TID PRN 11/06/24 (Benadryl) allergic reaction #20 caps epinephrine 0.3 mg/0.3 mL 0.3 mg (0.3 mL) IM Q10M PRN 11/06/24 injection, auto-injector (EpiPen anaphylaxis #2 ea 2-Arvind) prednisone 20 mg tablet 40 mg (2 x 20 mg) PO DAILY #10 tabs 11/06/24 Allergies Allergy/AdvReac Type Severity Reaction Status Date / Time shellfish derived Allergy Severe SHORTNESS Verified 11/08/24 16:35 OF BREATH, SWELLING shrimp Allergy Severe ANAPHYLAXIS Verified 11/08/24 16:35 Review of Systems Review of Systems: resolved chest pain Yes all other systems are reviewed and are negative [facility] Past Medical History Medical History Asthma Pneumonia due to 2019 novel coronavirus Asthma Family History Family History Mother Asthma Social History Social History Household Members: None Housing: House Do you presently have visiting nurse or other home services: No Alcohol intake: never Patient Tobacco Use Status: Never used Tobacco service: No Current occupational status: unemployed Physical Exam ED Vital Signs: Vital Signs - 24 hr 11/08/24 16:32 11/08/24 18:41 11/08/24 19:39 Temperature 98.4 F 98.1 F 98.6 F Pulse Rate 82 83 93 Respiratory Rate 16 16 16 Blood Pressure 141/83 H 129/87 127/86 Pulse Oximetry 94 95 96 Oxygen Delivery Method Room Air Room Air Room Air 11/08/24 21:26 Temperature 98.3 F Pulse Rate 83 Respiratory Rate 16 Blood Pressure 138/72 Pulse Oximetry 95 Oxygen Delivery Method Room Air BMI result Body Mass Index 43.1 Const General: cooperative, healthy appearing, comfortable, no acute distress, well developed, alert, awake and Physically active Orientation/consciousness: patient oriented x3 HENMT Head: Yes normal to inspection, Yes No palpable skull fracture present, Yes normocephalic and Yes atraumatic Eyes General: appearance normal, both eyes and all related structures Neck Neck: Yes normal visual inspection, Yes full ROM, Yes no lymphadenopathy, Yes no meningeal signs, Yes trachea midline, Yes supple, No anterior neck swelling and No tender Chest Chest palpation & inspection: normal inspection of the chest and normal palpation of entire chest wall Resp Effort & Inspection: normal respiratory effort and able to speak in complete sentences Auscultation: clear to auscultation bilaterally Cardio Jugular venous distension: no JVD Heart sounds: S1 normal heart sound present and S2 normal heart sound present GI Inspection: Yes normal to inspection Palpation (GI): Soft to palpation, not firm, nontender, no guarding and not rigid General: Yes no CVA tenderness Back/Spine/Pelvis Back: no CVA tenderness and No back tenderness Skin General skin exam: no rashes or lesions noted, elasticity normal and turgor normal Neuro General: patient oriented x3, gait normal, tone normal, moves all extremities, Normal light touch and pain sensation, no meningeal signs, no focal motor deficits, CN's II-XI intact bilaterally and normal sensation to monofilament Extrem Other: Bilateral lower extremity negative for swelling, pitting edema, or calf tenderness General: Yes normal to inspection, Yes full ROM and Yes capillary refill normal Psych Appearance: grossly normal, well kempt and not disheveled Course Course Course Narrative: RME, this is a rapid medical exam performed by Bhaskar Figueroa please refer to primary provider for complete H&P- 29-year-old male with past medical history significant for obesity, asthma presents for evaluation of chest pain. His pain started about an hour and a half ago. His pain is described as a pressure, does not radiate. He denies any shortness of breath. His last chest x-ray was 9 days ago, plan for labs, EKG was performed on arrival. Medical Decision Making Medical Decision Making MDM Narrative: 29-year-old male presents to ED for midsternal chest pain that resolved before coming to 23-year-old male on the [place] the ED. Patient states he thinks might be due to anxiety. Patient denies any drug use. Patient states chest pain radiating to midsternal to the right. Labs EKG ordered chest x-ray ordered. Patient denies any URI symptoms. 9:22pm: Patient has 2 troponins negative. D-dimer negative. Heart score 0. Perc score is 0. EKG negative STEMI. Chest x-ray normal. Patient is safe for discharge. Not suspecting pericariditis, mI, CHF, pneumothorax, hemothorax, or any other life threatening etiology. Differential Diagnosis Differential Diagnoses: The differential diagnosis associated with the presentation includes (pneumonia, CHF, mI) Admission/Observation Consideration of admission/observation: Escalation of care including admission/observation considered Lab Data MDM Lab Attestation statement: I reviewed the patient's lab results. 11/08/24 16:21 11/08/24 16:21 Labs: Lab Results 11/08/24 11/08/24 11/08/24 Range/Units 16:21 19:39 19:41 WBC 12.9 H (4.8-10.8) X10*3/uL RBC 5.19 (4.60-5.80) X10*6/uL Hgb 14.7 (14.0-18.0) g/dl Hct 41.9 L (42.0-52.0) % MCV 80.7 (80.0-98.0) fL MCH 28.3 (27.0-33.0) pg MCHC 35.1 (31.0-36.0) g/dl RDW 11.9 (11.0-16.0) % Plt Count 358 (160-400) X10*3/uL MPV 9.2 L (9.4-12.4) fL Immature Gran % (Auto) 0.5 H (0.0-0.4) % Neut % (Auto) 53.1 (45-73) % Lymph % (Auto) 29.5 (20-40) % Kimball % (Auto) 10.0 (2-11) % Eos % (Auto) 5.6 H (0-4) % Baso % (Auto) 1.3 (0-2) % Lymph # (Auto) 3.8 (1.2-4.9) X10*3/uL Kimball # (Auto) 1.3 H (0.1-1.2) X10*3/uL Eos # (Auto) 0.7 H (0.0-0.4) X10*3/uL Baso # (Auto) 0.2 (0.0-0.2) X10*3/uL Abs Immat Gran (auto) 0.07 H (0.00-0.03) X10*3/uL Absolute Neuts (auto) 6.9 (2.0-8.3) x10*3/uL Absolute Nucleated RBC 0.000 (0.0-0.012) X10*3/uL Nucleated RBC % (auto) 0.0 (0.0-0.2) /100WBC PT 11.3 (10.9-12.4) SEC INR 1.0 (0.9-1.1) APTT 30.3 (26.0-36.8) SEC D-Dimer High Sensitivty < 150 NG/ML Sodium 138 (135-145) mmol/L Potassium 3.9 (3.3-5.1) mmol/L Chloride 107 (96-108) mmol/L Carbon Dioxide 22 (22-29) mmol/L Anion Gap 13 (12-20) BUN 10 (9-16) mg/dL Creatinine 0.82 (0.5-1.4) mg/dL Estim Creat Clear Calc 156.3 Estimated GFR > 60 Random Glucose 85 (60-115) mg/dL Calcium 9.2 (8.4-10.2) mg/dL Total Bilirubin 0.3 (0.0-1.0) mg/dL AST 27 (5-37) U/L ALT 33 (0-40) U/L Alkaline Phosphatase 76 (39-117) U/L Troponin I High Sens < 2.7 < 2.7 (<3.5-35.0) ng/L B-Natriuretic Peptide < 10 (<100) pg/mL Total Protein 7.5 (6.5-8.0) g/dL Albumin 4.1 (3.5-5.0) g/dL Lipase 27 (8-78) U/L Independent Interpretation I performed an independent interpretation of an: EKG (negatir STEMI) and Plain X-Ray Discharge Plan Discharge Clinical Impression: Chest pain Patient Disposition: Home, Self-Care Instructions: Chest Pain (ED) Additional Instructions: Recommend follow-up with primary care provider. Return to ED for any chest pain, shortness of breath, coughing up blood, leg swelling, calf pain, pitting edema, any other concerning symptoms. Prescriptions: No Action (DME) nebulizer and compressor Device See Rx Instructions .Route Qty: 1 0RF Rx Instructions: As directed (DME) nebulizers [Aeroneb Go Nebulizer] Misc See Rx Instructions .Route Qty: 1 0RF Rx Instructions: As directed albuterol sulfate 2.5 mg /3 mL (0.083 %) Solution For Nebulization 2.5 mg inhalation Q4H PRN (Reason: Shortness Of Breath/Wheezing) Qty: 50 0RF doxycycline monohydrate 100 mg Capsule 100 mg PO BID Qty: 10 0RF prednisone 20 mg tablet 40 mg PO DAILY Qty: 10 0RF albuterol sulfate 90 mcg/actuation HFA aerosol inhaler 1 inh inhalation QID PRN (Reason: shortness of breath or wheezing) Qty: 6.7 0RF azithromycin 250 mg tablet See Rx Instructions .ROUTE .COMPLEX Qty: 6 0RF Rx Instructions: For 250 mg dose pack: take 500 mg today (day 1), then 250 mg for 4 days (days 2-5) albuterol sulfate 90 mcg/actuation HFA aerosol inhaler 2 puff inhalation Q4-6H PRN (Reason: shortness of breath or wheezing) Qty: 8.5 2RF prednisone 50 mg tablet 50 mg PO DAILY Qty: 4 0RF fluticasone propionate 250 mcg/actuation blister with device 2 inh inhalation Q12H Qty: 60 2RF prednisone 20 mg tablet 40 mg PO DAILY Qty: 10 0RF prednisone 20 mg tablet 40 mg PO DAILY Qty: 8 0RF fluticasone propion-salmeterol [Advair Diskus] 500-50 mcg/dose blister with device 1 inh inhalation BID Qty: 60 1RF albuterol sulfate 90 mcg/actuation HFA aerosol inhaler 2 puff inhalation Q4-6H PRN (Reason: shortness of breath or wheezing) Qty: 8.5 1RF epinephrine [EpiPen 2-Arvind] 0.3 mg/0.3 mL auto-injector 0.3 mg IM Q10M PRN (Reason: anaphylaxis) Qty: 2 0RF Rx Instructions: for 2 doses diphenhydramine HCl [Benadryl] 25 mg capsule 50 mg PO TID PRN (Reason: allergic reaction) Qty: 20 0RF prednisone 20 mg tablet 40 mg PO DAILY Qty: 10 0RF Stand Alone Forms: Work/School Release Interventions: ED Discharge Assessment Last Done: 11/08/24 21:52 Discharge Date/Time: 11/08/24 21:53 Print Language: Lithuanian
[2024-11-08 16:37] LABS: Basophils Absolute Auto 0.2 X10*3/uL (0.0-0.2); Basophils Percent Auto 1.3 % (0-2); Eosinophils Absolute Auto 0.7 X10*3/uL (0.0-0.4); Eosinophils Percent Auto 5.6 % (0-4); Hematocrit 41.9 % (42.0-52.0); Hemoglobin 14.7 g/dl (14.0-18.0); Imm Gran Abs Auto 0.07 X10*3/uL (0.00-0.03); Imm Gran Pct Auto 0.5 % (0.0-0.4); Lymphocytes Absolute Auto 3.8 X10*3/uL (1.2-4.9); Lymphocytes Percent Auto 29.5 % (20-40); Mean Corpuscular HGB Conc 35.1 g/dl (31.0-36.0); Mean Corpuscular Hemoglobin 28.3 pg (27.0-33.0); Mean Corpuscular Volume 80.7 fL (80.0-98.0); Mean Platelet Volume 9.2 fL (9.4-12.4); Monocytes Absolute Auto 1.3 X10*3/uL (0.1-1.2); Neutrophils Absolute Auto 6.9 x10*3/uL (2.0-8.3); Neutrophils Percent Auto 53.1 % (45-73); Platelet Count 358 X10*3/uL (160-400); Red Blood Count 5.19 X10*6/uL (4.60-5.80); Red Cell Distribution Width 11.9 % (11.0-16.0); White Blood Count 12.9 X10*3/uL (4.8-10.8)
[2024-11-08 16:51] LABS: Alanine Aminotransferase 33 U/L (0-40); Albumin Level 4.1 g/dL (3.5-5.0); Anion Gap 13 (12-20); Aspartate Amino Transferase 27 U/L (5-37); Bilirubin Total 0.3 mg/dL (0.0-1.0); Blood Urea Nitrogen 10 mg/dL (9-16); Calcium 9.2 mg/dL (8.4-10.2); Carbon Dioxide 22 mmol/L (22-29); Chloride 107 mmol/L (96-108); Creatinine Clr Calc Pharmacy 156.3; Estimated Glomerular Filt Rate > 60; Glucose Random 85 mg/dL (60-115); Potassium 3.9 mmol/L (3.3-5.1); Sodium 138 mmol/L (135-145); Total Protein 7.5 g/dL (6.5-8.0)
[2024-11-08 16:52] LABS: Lipase 27 U/L (8-78)
[2024-11-08 16:59] LABS: Troponin-I High Sensitivity < 2.7 ng/L (<3.5-35.0)
[2024-11-08 17:07] LABS: Alkaline Phosphatase 76 U/L (39-117)
[2024-11-08 18:41] VITALS: BP 129/87; PULSE 83; RESP 16; TEMP 36.7; O2SAT 95
--- NOTE | 2024-11-08 18:42 | MHC.EDTECH ---
This pct just assumed care of Patient ,vitals taken ,Patient was hooked up to quality assurance monitor ,and change into hospital attire ,Call erickson within Pt reach .
[2024-11-08 19:39] VITALS: BP 127/86; PULSE 93; RESP 16; TEMP 37; O2SAT 96
[2024-11-08 19:52] LABS: Prothrombin Time 11.3 SEC (10.9-12.4)
[2024-11-08 19:54] LABS: D Dimer High Sensitivity < 150 NG/ML; Partial Thromboplastin Time 30.3 SEC (26.0-36.8)
[2024-11-08 20:05] LABS: Troponin-I High Sensitivity < 2.7 ng/L (<3.5-35.0)
[2024-11-08 20:28] LABS: B Type Natriuretic Peptide < 10 pg/mL (<100)
--- NOTE | 2024-11-08 20:48 | PC.NURSE ---
20g IV access established in left AC at 19:39. Labs drawn and sent for analysis. Patient denies pain at this time. Care ongoing by this RN.
[2024-11-08 21:26] VITALS: BP 138/72; PULSE 83; RESP 16; TEMP 36.8; O2SAT 95
[2024-11-08 21:52] VITALS: BP 138/72; PULSE 83; RESP 16; TEMP 36.8; O2SAT 95
== END 2024-11-08 21:53 | disposition home or self-care (01) ==
PROVIDERS: Physician Assistant; Emergency Provider Emergency Medicine
DX: R07.9 Chest pain, unspecified (principal); J45.909 Unspecified asthma, uncomplicated; E66.01 Morbid (severe) obesity due to excess calories; Z68.41 Body mass index [BMI] 40.0-44.9, adult
CPT/HCPCS: 36415; 71045; 80053; 83690; 83880; 84484; 85025; 85379; 85610; 85730; 93005; 99283; 99284

== ENCOUNTER → 2024-11-08 16:16 | Outpatient (BNV) | payer OTHER, SELFPAY | PROVIDERS: Emergency Provider Emergency Medicine; Visit Provider Internal Medicine Cardiovascular Disease | DX: I44.7 Left bundle-branch block, unspecified (principal) | CPT/HCPCS: 93010 ==

== ENCOUNTER → 2024-11-08 18:51 | Outpatient (BNV) | payer OTHER, SELFPAY | PROVIDERS: Emergency Provider Emergency Medicine; Visit Provider General Practice | DX: R07.9 Chest pain, unspecified (principal) | CPT/HCPCS: 71045 ==

== ENCOUNTER 2024-12-02 04:52 | Emergency (ER) | payer OTHER, SELFPAY ==
[2024-12-02 04:55] VITALS: BP 132/82; PULSE 85; RESP 20; TEMP 36.6; O2SAT 97; BMI 39.9
[2024-12-02 05:08] VITALS: BP 141/66; PULSE 82; RESP 19; TEMP 36.8; O2SAT 94
[2024-12-02 06:58] VITALS: BP 130/91; PULSE 84; RESP 16; TEMP 36.1; O2SAT 96
--- NOTE | 2024-12-02 07:13 | ED.GENADULT ---
HPI - General Adult General Chief complaint: General Medical Stated complaint: difficulty breathing Time Seen by Provider: 12/02/24 07:08 Source: patient Mode of arrival: ambulatory Limitations: no limitations History of Present Illness HPI narrative: This is a 29 years old the patient presented to the emergency department with a chief complaint of sore throat. Actually the symptoms are now resolved he denies any shortness of breath he denies any wheezing. Sore throat started like 3 hours ago. Onset (ago): hour(s) (3) Radiation: non-radiation Severity: mild Quality: burning Relieving factors: none Exacerbating factors: none Related Data Previous Rx's ?Medication ?Instructions ?Recorded nebulizer and compressor #1 ea 09/15/21 nebulizers ([employer] Go Nebulizer) #1 ea 04/18/22 albuterol sulfate 2.5 mg/3 mL 2.5 mg (3 mL) inhalation Q4H PRN 09/07/24 (0.083 %) solution for nebulization Shortness Of Breath/Wheezing #50 ea albuterol sulfate 90 mcg/actuation 1 inh inhalation QID PRN shortness 09/07/24 aerosol inhaler of breath or wheezing #6.7 grams doxycycline monohydrate 100 mg 100 mg PO BID #10 caps 09/07/24 capsule prednisone 20 mg tablet 40 mg (2 x 20 mg) PO DAILY #10 tabs 09/07/24 prednisone 20 mg tablet 40 mg (2 x 20 mg) PO DAILY #10 tabs 09/23/24 azithromycin 250 mg tablet See Rx Instructions PO .COMPLEX #6 09/28/24 tabs albuterol sulfate 90 mcg/actuation 2 puff inhalation Q4-6H PRN 10/07/24 aerosol inhaler shortness of breath or wheezing #8.5 grams fluticasone propionate 250 2 inh inhalation Q12H #60 ea 10/07/24 mcg/actuation blister powder for inhalation prednisone 50 mg tablet 50 mg PO DAILY #4 tabs 10/07/24 prednisone 20 mg tablet 40 mg (2 x 20 mg) PO DAILY #8 tabs 10/23/24 albuterol sulfate 90 mcg/actuation 2 puff inhalation Q4-6H PRN 10/30/24 aerosol inhaler shortness of breath or wheezing #8.5 grams fluticasone 500 mcg-salmeterol 50 1 inh inhalation BID #60 ea 10/30/24 mcg/dose blistr powdr for inhalation (Advair Diskus) diphenhydramine HCl 25 mg capsule 50 mg (2 x 25 mg) PO TID PRN 11/06/24 (Benadryl) allergic reaction #20 caps epinephrine 0.3 mg/0.3 mL 0.3 mg (0.3 mL) IM Q10M PRN 11/06/24 injection, auto-injector (EpiPen anaphylaxis #2 ea 2-Arvind) prednisone 20 mg tablet 40 mg (2 x 20 mg) PO DAILY #10 tabs 11/06/24 Allergies Allergy/AdvReac Type Severity Reaction Status Date / Time shellfish derived Allergy Severe SHORTNESS Verified 12/02/24 04:59 OF BREATH, SWELLING shrimp Allergy Severe ANAPHYLAXIS Verified 12/02/24 04:59 Review of Systems ENT: Reports as per HPI Cardiovascular: Cardiovascular: Reports no additional cardiovascular complaints PMFSH Past Medical History Attestation statement: The following information was validated with the patient. Medical History Asthma Pneumonia due to 2019 novel coronavirus Asthma Family History Family History Mother Asthma Social History Social History Household Members: None Housing: House Do you presently have visiting nurse or other home services: No Alcohol intake: never Patient Tobacco Use Status: Never used Tobacco Smoked in Last 30 Days: Yes Use of substances other than those prescribed or required for medical reasons: No Advance Directives: No Advance Directives Information Provided: Yes service: No Current occupational status: unemployed Physical Exam ED Vital Signs: Vital Signs - 24 hr 12/02/24 04:55 12/02/24 05:08 12/02/24 06:58 Temperature 97.9 F 98.2 F 97 F Pulse Rate 85 82 84 Respiratory Rate 20 19 16 Blood Pressure 132/82 141/66 H 130/91 H Pulse Oximetry 97 94 96 Oxygen Delivery Method Room Air Room Air Room Air BMI result Body Mass Index 39.9 Const Other: No acute distress patient looks well General: cooperative Nutritional Appearance: average body habitus Orientation/consciousness: patient oriented x3 Limitations: no limitations HENMT Head: Yes normal to inspection General nose exam: Normal external nose present Face and sinus: Yes normal facial exam Mouth: Normal oral and palatal mucosa present Throat: Yes other (Redness pharynx, no exudate seen) Neck Neck: Yes normal visual inspection and Yes full ROM Resp Effort & Inspection: normal respiratory effort Auscultation: clear to auscultation bilaterally Cardio Jugular venous distension: no JVD Rate: regular rate Rhythm: regular rhythm GI Inspection: Yes normal to inspection Palpation (GI): Soft to palpation, not firm and nontender Neuro General: patient oriented x3 Cranial nerves: Yes CN's II-XII intact bilaterally Extrem General: Yes normal to inspection and Yes full ROM Right lower extremity: normal to inspection Course Reevaluation(s) Reevaluation #1: pt eloped Time: 08:07 Medical Decision Making Medical Decision Making [facility] Narrative: Patient is here with sore throat symptoms resolving we will get rapid strep Differential Diagnosis Differential Diagnoses: The differential diagnosis associated with the presentation includes Viral pharyngitis/ strep pharyngitis Lab Data [facility] Lab Attestation statement: I reviewed the patient's lab results. Labs: Lab Results 12/02/24 Range/Units 07:17 S. pyogenes GrpA BHARGAVI Negative (Negative) Discharge Plan Discharge Clinical Impression: Pharyngitis, acute Qualifiers: Pharyngitis/tonsillitis etiology: unspecified etiology Qualified Code(s): J02.9 - Acute pharyngitis, unspecified Patient Disposition: Left Against Medical Advice Prescriptions: No Action (DME) nebulizer and compressor Device See Rx Instructions .Route Qty: 1 0RF Rx Instructions: As directed (DME) nebulizers [Aeroneb Go Nebulizer] [facility] [place] See Rx Instructions .Route Qty: 1 0RF Rx Instructions: As directed albuterol sulfate 2.5 mg /3 mL (0.083 %) Solution For Nebulization 2.5 mg inhalation Q4H PRN (Reason: Shortness Of Breath/Wheezing) Qty: 50 0RF doxycycline monohydrate 100 mg Capsule 100 mg PO BID Qty: 10 0RF prednisone 20 mg tablet 40 mg PO DAILY Qty: 10 0RF albuterol sulfate 90 mcg/actuation HFA aerosol inhaler 1 inh inhalation QID PRN (Reason: shortness of breath or wheezing) Qty: 6.7 0RF azithromycin 250 mg tablet See Rx Instructions .ROUTE .COMPLEX Qty: 6 0RF Rx Instructions: For 250 mg dose pack: take 500 mg today (day 1), then 250 mg for 4 days (days 2-5) albuterol sulfate 90 mcg/actuation HFA aerosol inhaler 2 puff inhalation Q4-6H PRN (Reason: shortness of breath or wheezing) Qty: 8.5 2RF prednisone 50 mg tablet 50 mg PO DAILY Qty: 4 0RF fluticasone propionate 250 mcg/actuation blister with device 2 inh inhalation Q12H Qty: 60 2RF prednisone 20 mg tablet 40 mg PO DAILY Qty: 10 0RF prednisone 20 mg tablet 40 mg PO DAILY Qty: 8 0RF fluticasone propion-salmeterol [Advair Diskus] 500-50 mcg/dose blister with device 1 inh inhalation BID Qty: 60 1RF albuterol sulfate 90 mcg/actuation HFA aerosol inhaler 2 puff inhalation Q4-6H PRN (Reason: shortness of breath or wheezing) Qty: 8.5 1RF epinephrine [EpiPen 2-Arvind] 0.3 mg/0.3 mL auto-injector 0.3 mg IM Q10M PRN (Reason: anaphylaxis) Qty: 2 0RF Rx Instructions: for 2 doses diphenhydramine HCl [Benadryl] 25 mg capsule 50 mg PO TID PRN (Reason: allergic reaction) Qty: 20 0RF prednisone 20 mg tablet 40 mg PO DAILY Qty: 10 0RF Stand Alone Forms: Against Medical Advice Print Language: Persian
[2024-12-02 07:39] LABS: IDNOW Serial# 58CA691E; Strep A Nucleic Acid Negative (Negative)
--- NOTE | 2024-12-02 07:41 | PC.NURSE ---
Airway patent, LS CTA all doan and pt managing secretions; strep swab negative
--- NOTE | 2024-12-02 08:13 | PC.NURSE ---
Pt declining to stay any longer secondary to work and childcare issues; risks of leaving before treament completed reviewed; pt encouraged to return if sx's worsen/change; pt verbalized understanding
== END 2024-12-02 08:04 | disposition left against medical advice (07) ==
PROVIDERS: Emergency Provider Emergency Medicine
DX: J02.9 Acute pharyngitis, unspecified (principal); R06.02 Shortness of breath
CPT/HCPCS: 87651; 99283; 99284

== ENCOUNTER 2024-12-10 01:16 | Emergency (ER) | payer OTHER, SELFPAY ==
[2024-12-10 01:20] VITALS: BP 137/92; PULSE 95; RESP 20; TEMP 36.7; O2SAT 94; BMI 41.6
--- NOTE | 2024-12-10 01:26 | ED_ITS ---
HPI - SOB/Dyspnea General Chief Complaint: Dyspnea Stated Complaint: Asthma Time Seen by Provider: 12/10/24 01:23 Source: patient Mode of arrival: ambulatory Limitations: no limitations History of Present Illness ED Provider: Dr. Briseida Manzano HPI Narrative: patient comes to the emergency room complaining of shortness of breath, wheezing. Patient states that earlier today he was doing well. Throughout the night, patient has seasonal allergies got worse and triggered his asthma. Patient has been using his inhalers without any significant relief. Patient denies any chest pain. Related Data Previous Rx's ?Medication ?Instructions ?Recorded nebulizer and compressor #1 ea 09/15/21 nebulizers (Aeroneb Go Nebulizer) #1 ea 04/18/22 albuterol sulfate 2.5 mg/3 mL 2.5 mg (3 mL) inhalation Q4H PRN 09/07/24 (0.083 %) solution for nebulization Shortness Of Breath/Wheezing #50 ea albuterol sulfate 90 mcg/actuation 1 inh inhalation QID PRN shortness 09/07/24 aerosol inhaler of breath or wheezing #6.7 grams doxycycline monohydrate 100 mg 100 mg PO BID #10 caps 09/07/24 capsule prednisone 20 mg tablet 40 mg (2 x 20 mg) PO DAILY #10 tabs 09/07/24 prednisone 20 mg tablet 40 mg (2 x 20 mg) PO DAILY #10 tabs 09/23/24 azithromycin 250 mg tablet See Rx Instructions PO .COMPLEX #6 09/28/24 tabs albuterol sulfate 90 mcg/actuation 2 puff inhalation Q4-6H PRN 10/07/24 aerosol inhaler shortness of breath or wheezing #8.5 grams fluticasone propionate 250 2 inh inhalation Q12H #60 ea 10/07/24 mcg/actuation blister powder for inhalation prednisone 50 mg tablet 50 mg PO DAILY #4 tabs 10/07/24 prednisone 20 mg tablet 40 mg (2 x 20 mg) PO DAILY #8 tabs 10/23/24 albuterol sulfate 90 mcg/actuation 2 puff inhalation Q4-6H PRN 10/30/24 aerosol inhaler shortness of breath or wheezing #8.5 grams fluticasone 500 mcg-salmeterol 50 1 inh inhalation BID #60 ea 10/30/24 mcg/dose blistr powdr for inhalation (Advair Diskus) diphenhydramine HCl 25 mg capsule 50 mg (2 x 25 mg) PO TID PRN 11/06/24 (Benadryl) allergic reaction #20 caps epinephrine 0.3 mg/0.3 mL 0.3 mg (0.3 mL) IM Q10M PRN 11/06/24 injection, auto-injector (EpiPen anaphylaxis #2 ea 2-Arvind) prednisone 20 mg tablet 40 mg (2 x 20 mg) PO DAILY #10 tabs 11/06/24 prednisone 10 mg tablet 10 mg PO DIRECTED #41 tabs 12/10/24 Allergies Allergy/AdvReac Type Severity Reaction Status Date / Time shellfish derived Allergy Severe SHORTNESS Verified 12/10/24 01:21 OF BREATH, SWELLING shrimp Allergy Severe ANAPHYLAXIS Verified 12/10/24 01:21 Review of Systems 2 Review of Systems: Constitutional : No Weight loss, No Fever, No Chills, No Night Sweats, No Fatigue, No Malaise ENT/Mouth : No Hearing loss, No Ear Pain, No Nasal Congestion, No Sinus Pain, No Hoarseness, No sore throat, No Rhinorrhea, No Swallowing Difficulty Eyes: No Eye Pain, No Swelling, No Redness, No Foreign Body, No Discharge, No Vision Changes Cardiovascular : No Chest Pain, No SOB, No Dyspnea on Exertion, No Orthopnea, No Edema, No Palpitations Respiratory : Complaining of cough, asthma exacerbation, shortness of breath, runny itchy nose Gastrointestinal : No Nausea, No Vomiting, No Diarrhea, No Constipation, No abdominal Pain, No Hematochezia, No Melena Genitourinary : no irregular bleeding, No Dysuria, No Urinary Frequency, No Hematuria, No Urinary Incontinence, No Urgency, No Flank Pain, No Urinary Flow Changes, No Hesitancy Musculoskeletal : No joint pain, No Myalgias, No Joint Swelling Skin : No Skin Lesions, No rash Neuro : No Weakness, No Numbness, No Paresthesias, No Loss of Consciousness, No Dizziness, No Headache Psych : No Anxiety/Panic, No Depression, No SI/HI/AH/VH, No Social Issues, Heme/Lymph: No Bruising, No Bleeding,No Lymphadenopathy Endocrine : No Polyuria, No Polydipsia, No Temperature Intolerance PMFSH Past Medical History Medical History Asthma Pneumonia due to 2019 novel coronavirus Asthma Family History Family History Mother Asthma Social History Social History Household Members: None Housing: House Do you presently have visiting nurse or other home services: No Alcohol intake: never Patient Tobacco Use Status: Never used Tobacco Smoked in Last 30 Days: No Use of substances other than those prescribed or required for medical reasons: No Advance Directives: No Advance Directives Information Provided: Yes Do you have a plan to hurt others: No Plan service: No Current occupational status: unemployed Physical Exam 2 Vital Signs: Vital Signs: Last Vital Signs Temp 98.6 F 12/10/24 04:14 Pulse 105 H 12/10/24 04:14 Resp 16 12/10/24 04:14 BP 116/73 12/10/24 04:14 Pulse Ox 94 12/10/24 04:14 O2 Del Method Room Air 12/10/24 04:14 BMI result Body Mass Index 41.6 Const: Other: Appearance: Alert. Oriented X3. No acute distress. Eyes: Pupils equal, round and reactive to light. ENT: Pharynx normal. Neck: Normal inspection. Neck supple. No lymph nodes noted. No crepitus CVS: Normal heart rate and rhythm. Pulses normal. Normal S1 and S2 Respiratory: No respiratory distress. very mild occasional bilateral wheezing, no rales or crackles, patient is speaking full sentences, oxygen saturation 94% on room air Abdomen: Soft and nontender. No rigidity. No distention. Skin: Skin warm and dry. Normal skin color. Normal skin turgor. Extremities: No lower extremity edema. No Lacerations. No Rash Neuro: Oriented X 3. No motor deficit. No sensory deficit. Moving all extremities. No slurred speech. CN 2 through 12 grossly intact Psych: calm, cooperative, normal affect Course Course Course Narrative: patient receiving IV magnesium, Solu-Medrol and a bronchodilator protocol all of patient's labs pending. Patient states that since he started the Advair Diskus, his asthma has been better controlled. Reevaluation(s) Reevaluation #1: 531 am patient doing well he feels much better HR slightly tachy but this is normal for the patient he is 97% on RA at this time he is asking to leave and states he feels much better IMANI 12/10/24 Medications Administered Discontinued Medications Generic Name Dose Route Start Last Admin Trade Name Darius PRN Reason Stop Dose Admin Albuterol Sulfate 7.5 mg/ 10 mg 12/10/24 01:53 12/10/24 01:56 Albuterol Sulfate 2.5 mg INHALE 12/10/24 01:54 10 mg ONCE ONE Administration Magnesium Sulfate 2 gm in 50 mls @ 150 mls/hr 12/10/24 01:17 12/10/24 02:43 Magnesium Sulfate/H2o IV 12/10/24 01:36 Infused ONCE ONE Infusion Methylprednisolone Sodium Succinate 60 mg 12/10/24 01:17 12/10/24 01:44 Methylprednisolone Sod Succ 125 Mg/2 Ml Vial IVPUSH 12/10/24 01:18 60 mg ONCE ONE Administration Medical Decision Making Medical Decision Making [facility] Narrative: My interpretation of labs: No significant abnormality in patient's hematology and chemistry overall patient feeling better. No significant wheezing At this time, patient is receiving a nebulization treatment. Sign-out given to my colleague Dr. Morris Lab Data [facility] Lab Attestation statement: I reviewed the patient's lab results. 12/10/24 01:27 12/10/24 01:27 Labs: Lab Results 12/10/24 Range/Units 01:27 WBC 11.0 H (4.8-10.8) X10*3/uL RBC 5.30 (4.60-5.80) X10*6/uL Hgb 15.0 (14.0-18.0) g/dl Hct 42.2 (42.0-52.0) % MCV 79.6 L (80.0-98.0) fL MCH 28.3 (27.0-33.0) pg MCHC 35.5 (31.0-36.0) g/dl RDW 11.9 (11.0-16.0) % Plt Count 369 (160-400) X10*3/uL MPV 9.2 L (9.4-12.4) fL Immature Gran % (Auto) 0.4 (0.0-0.4) % Neut % (Auto) 43.6 L (45-73) % Lymph % (Auto) 35.1 (20-40) % O'Brien % (Auto) 8.3 (2-11) % Eos % (Auto) 10.8 H (0-4) % Baso % (Auto) 1.8 (0-2) % Lymph # (Auto) 3.9 (1.2-4.9) X10*3/uL O'Brien # (Auto) 0.9 (0.1-1.2) X10*3/uL Eos # (Auto) 1.2 H (0.0-0.4) X10*3/uL Baso # (Auto) 0.2 (0.0-0.2) X10*3/uL Abs Immat Gran (auto) 0.04 H (0.00-0.03) X10*3/uL Absolute Neuts (auto) 4.8 (2.0-8.3) x10*3/uL Absolute Nucleated RBC 0.000 (0.0-0.012) X10*3/uL Nucleated RBC % (auto) 0.0 (0.0-0.2) /100WBC Sodium 139 (135-145) mmol/L Potassium 4.3 (3.3-5.1) mmol/L Chloride 107 (96-108) mmol/L Carbon Dioxide 21 L (22-29) mmol/L Anion Gap 15 (12-20) BUN 10 (9-16) mg/dL Creatinine 0.78 (0.5-1.4) mg/dL Estim Creat Clear Calc 161.1 Estimated GFR > 60 Random Glucose 110 (60-115) mg/dL Calcium 9.3 (8.4-10.2) mg/dL Magnesium 2.1 (1.6-2.6) mg/dL Total Bilirubin 0.3 (0.0-1.0) mg/dL Direct Bilirubin 0.1 (0.0-0.5) mg/dL AST 37 (5-37) U/L ALT 43 H (0-40) U/L Alkaline Phosphatase 76 (39-117) U/L Total Protein 7.5 (6.5-8.0) g/dL Albumin 4.1 (3.5-5.0) g/dL Critical Care Time Critical Care Time Critical Care Time: Yes Total Critical Care Time: 45 Attestation: I have personally provided critical care time. Time includes review of lab data, radiology results, discussion with consultants, and monitoring for potential decompensation. Intervention performed as documented. Discharge Plan Discharge Clinical Impression: Asthma Qualifiers: Asthma severity: unspecified severity Asthma persistence: unspecified Asthma complication type: unspecified Qualified Code(s): J45.909 - Unspecified asthma, uncomplicated Patient Disposition: Home, Self-Care Instructions: Asthma (ED) Additional Instructions: Please follow-up with your primary care physician tomorrow. If you have any worsening or new symptoms, please return to the emergency room or call 911 continue to use all your inhalers and nebulizers rest today Prescriptions: New prednisone 10 mg tablet 10 mg PO DIRECTED Qty: 41 0RF Rx Instructions: see taper instructions 60mg on day 1-5, 40mg on day 6, 30mg on day 7, 20mg on day 8, 10mg on day 9, 5mg on day 10 No Action (DME) nebulizer and compressor Device See Rx Instructions .Route Qty: 1 0RF Rx Instructions: As directed (DME) nebulizers [Aeroneb Go Nebulizer] Misc See Rx Instructions .Route Qty: 1 0RF Rx Instructions: As directed albuterol sulfate 2.5 mg /3 mL (0.083 %) Solution For Nebulization 2.5 mg inhalation Q4H PRN (Reason: Shortness Of Breath/Wheezing) Qty: 50 0RF doxycycline monohydrate 100 mg Capsule 100 mg PO BID Qty: 10 0RF prednisone 20 mg tablet 40 mg PO DAILY Qty: 10 0RF albuterol sulfate 90 mcg/actuation HFA aerosol inhaler 1 inh inhalation QID PRN (Reason: shortness of breath or wheezing) Qty: 6.7 0RF azithromycin 250 mg tablet See Rx Instructions .ROUTE .COMPLEX Qty: 6 0RF Rx Instructions: For 250 mg dose pack: take 500 mg today (day 1), then 250 mg for 4 days (days 2-5) albuterol sulfate 90 mcg/actuation HFA aerosol inhaler 2 puff inhalation Q4-6H PRN (Reason: shortness of breath or wheezing) Qty: 8.5 2RF prednisone 50 mg tablet 50 mg PO DAILY Qty: 4 0RF fluticasone propionate 250 mcg/actuation blister with device 2 inh inhalation Q12H Qty: 60 2RF prednisone 20 mg tablet 40 mg PO DAILY Qty: 10 0RF prednisone 20 mg tablet 40 mg PO DAILY Qty: 8 0RF fluticasone propion-salmeterol [Advair Diskus] 500-50 mcg/dose blister with device 1 inh inhalation BID Qty: 60 1RF albuterol sulfate 90 mcg/actuation HFA aerosol inhaler 2 puff inhalation Q4-6H PRN (Reason: shortness of breath or wheezing) Qty: 8.5 1RF epinephrine [EpiPen 2-Arvind] 0.3 mg/0.3 mL auto-injector 0.3 mg IM Q10M PRN (Reason: anaphylaxis) Qty: 2 0RF Rx Instructions: for 2 doses diphenhydramine HCl [Benadryl] 25 mg capsule 50 mg PO TID PRN (Reason: allergic reaction) Qty: 20 0RF prednisone 20 mg tablet 40 mg PO DAILY Qty: 10 0RF Print Language: Pashto
[2024-12-10 01:31] LABS: MANUAL DIFF FLAG NO
[2024-12-10 01:32] LABS: Basophils Absolute Auto 0.2 X10*3/uL (0.0-0.2); Basophils Percent Auto 1.8 % (0-2); Eosinophils Absolute Auto 1.2 X10*3/uL (0.0-0.4); Eosinophils Percent Auto 10.8 % (0-4); Hematocrit 42.2 % (42.0-52.0); Imm Gran Abs Auto 0.04 X10*3/uL (0.00-0.03); Imm Gran Pct Auto 0.4 % (0.0-0.4); Lymphocytes Absolute Auto 3.9 X10*3/uL (1.2-4.9); Lymphocytes Percent Auto 35.1 % (20-40); Mean Corpuscular HGB Conc 35.5 g/dl (31.0-36.0); Mean Corpuscular Hemoglobin 28.3 pg (27.0-33.0); Mean Corpuscular Volume 79.6 fL (80.0-98.0); Mean Platelet Volume 9.2 fL (9.4-12.4); Monocytes Absolute Auto 0.9 X10*3/uL (0.1-1.2); Monocytes Percent Auto 8.3 % (2-11); Neutrophils Absolute Auto 4.8 x10*3/uL (2.0-8.3); Neutrophils Percent Auto 43.6 % (45-73); Platelet Count 369 X10*3/uL (160-400); Red Cell Distribution Width 11.9 % (11.0-16.0)
[2024-12-10] MEDS: methylPREDNISolone Sod Succ 125 MG/2 ML VIAL 60 MG IVPUSH (01:44)
[2024-12-10] MEDS: Magnesium Sulfate/H2O 2 GM/50 ML PIGGYBACK IV (01:45)
--- NOTE | 2024-12-10 01:52 | PC.NURSE ---
critical lab reported to Dr. Morris of [facility] 1.3
[2024-12-10 01:53] LABS: Alanine Aminotransferase 43 U/L (0-40); Albumin Level 4.1 g/dL (3.5-5.0); Anion Gap 15 (12-20); Aspartate Amino Transferase 37 U/L (5-37); Bilirubin Direct 0.1 mg/dL (0.0-0.5); Bilirubin Total 0.3 mg/dL (0.0-1.0); Blood Urea Nitrogen 10 mg/dL (9-16); Calcium 9.3 mg/dL (8.4-10.2); Carbon Dioxide 21 mmol/L (22-29); Chloride 107 mmol/L (96-108); Creatinine Clr Calc Pharmacy 161.1; Estimated Glomerular Filt Rate > 60; Glucose Random 110 mg/dL (60-115); Magnesium 2.1 mg/dL (1.6-2.6); Potassium 4.3 mmol/L (3.3-5.1); Sodium 139 mmol/L (135-145); Total Protein 7.5 g/dL (6.5-8.0)
[2024-12-10 01:56] VITALS: PULSE 91; RESP 18; O2SAT 96
[2024-12-10] MEDS: Albuterol Sulfate 7.5 MG, Albuterol Sulfate (0.083%) 2.5 MG 10 MG INHALE (01:56)
[2024-12-10 02:49] LABS: Alkaline Phosphatase 76 U/L (39-117)
[2024-12-10 04:14] VITALS: BP 116/73; PULSE 105; RESP 16; TEMP 37; O2SAT 94
--- NOTE | 2024-12-10 04:34 | PC.NURSE ---
pt reports feeling better, provider into discuss plan of care, awaiting deposition.
--- NOTE | 2024-12-10 05:23 | PC.NURSE ---
pt sleeping, no respiratory distress after breathing treatment and medication
--- NOTE | 2024-12-10 05:33 | PC.NURSE ---
Iv removed, reviewed plan of care with pt. pt verbalized understanding, no sign of distress.
[2024-12-10 05:49] VITALS: BP 116/73; PULSE 105; RESP 16; TEMP 37; O2SAT 94
== END 2024-12-10 05:49 | disposition home or self-care (01) ==
PROVIDERS: Emergency Medicine; Emergency Provider Emergency Medicine
DX: J45.909 Unspecified asthma, uncomplicated (principal); R06.02 Shortness of breath
CPT/HCPCS: 36415; 80048; 80076; 83735; 85025; 94640; 99284; 99285; J2919; J3475

== ENCOUNTER 2024-12-30 04:28 | Emergency (ER) | payer OTHER, SELFPAY ==
--- NOTE | ~2024-12-30 | XR_ITS ---
CLINICAL HISTORY: SOb 1 view chest x-ray. Comparison: CR/MI - XR CHEST 1V - 11/08/24 19:15 EDT Findings: The lungs are adequately expanded. No focal consolidation. No effusion or pneumothorax. Cardiac and mediastinal contours are within normal limits. No acute osseous abnormality Impression: No acute process. This document has been electronically signed by: Jarad Segundo MD on 12/30/2024 05:44:10
[2024-12-30 04:30] VITALS: BP 134/75; PULSE 90; RESP 18; TEMP 36.9; O2SAT 96; BMI 42.6
[2024-12-30 05:02] LABS: MANUAL DIFF FLAG NO
[2024-12-30 05:03] LABS: Basophils Absolute Auto 0.2 X10*3/uL (0.0-0.2); Basophils Percent Auto 1.6 % (0-2); Eosinophils Absolute Auto 1.2 X10*3/uL (0.0-0.4); Hematocrit 41.3 % (42.0-52.0); Hemoglobin 14.6 g/dl (14.0-18.0); Imm Gran Abs Auto 0.03 X10*3/uL (0.00-0.03); Imm Gran Pct Auto 0.2 % (0.0-0.4); Lymphocytes Absolute Auto 3.7 X10*3/uL (1.2-4.9); Lymphocytes Percent Auto 31.1 % (20-40); Mean Corpuscular HGB Conc 35.4 g/dl (31.0-36.0); Mean Corpuscular Hemoglobin 28.2 pg (27.0-33.0); Mean Corpuscular Volume 79.9 fL (80.0-98.0); Mean Platelet Volume 9.4 fL (9.4-12.4); Monocytes Percent Auto 8.1 % (2-11); Neutrophils Absolute Auto 5.9 x10*3/uL (2.0-8.3); Platelet Count 328 X10*3/uL (160-400); Red Blood Count 5.17 X10*6/uL (4.60-5.80); Red Cell Distribution Width 11.8 % (11.0-16.0)
[2024-12-30 05:19] LABS: Alanine Aminotransferase 32 U/L (0-40); Albumin Level 4.2 g/dL (3.5-5.0); Anion Gap 14 (12-20); Aspartate Amino Transferase 28 U/L (5-37); Bilirubin Total 0.4 mg/dL (0.0-1.0); Blood Urea Nitrogen 8 mg/dL (9-16); Calcium 8.8 mg/dL (8.4-10.2); Carbon Dioxide 23 mmol/L (22-29); Chloride 105 mmol/L (96-108); Creatinine Clr Calc Pharmacy 149.8; Estimated Glomerular Filt Rate > 60; Glucose Random 104 mg/dL (60-115); Potassium 3.8 mmol/L (3.3-5.1); Sodium 138 mmol/L (135-145); Total Protein 7.3 g/dL (6.5-8.0)
[2024-12-30 05:22] LABS: Alkaline Phosphatase 77 U/L (39-117)
[2024-12-30 05:40] LABS: Influenza A PCR NEGATIVE (Negative); Influenza B PCR NEGATIVE (Negative); Resp Syncy Virus RNA Qual PCR NEGATIVE (Negative); SARS COV2 PCR INHOUSE NEGATIVE (Negative)
[2024-12-30 05:53] VITALS: BP 137/85; PULSE 93; RESP 16; TEMP 36.4; O2SAT 97
[2024-12-30] MEDS: Albuterol Sulfate 7.5 MG, Albuterol/Iprat 2.5/0.5MG 3 ML 3 ML INHALE (05:54)
[2024-12-30 05:55] VITALS: PULSE 90; RESP 21; O2SAT 94
[2024-12-30] MEDS: Magnesium Sulfate/H2O 2 GM/50 ML PIGGYBACK IV (06:12)
--- NOTE | 2024-12-30 07:05 | PC.NURSE ---
medicated per mar, mag given faster than [address] John for Asthma.
--- NOTE | 2024-12-30 07:07 | ED_ITS ---
HPI - Asthma General Chief Complaint: Asthma Stated Complaint: ashma Time Seen by Provider: 12/30/24 05:33 Source: patient Mode of arrival: ambulatory Limitations: no limitations History of Present Illness ED Provider: Dr. Brsieida Manzano HPI Narrative: Patient comes to the emergency room complaining of an asthma exacerbation. Patient states that he was sleeping and he woke up wheezing. Patient gave his of and nebulization treatment but did not work. Patient came to the emergency room. Patient denies any recent URI symptoms. Patient denies any chest pain Related Data Previous Rx's ?Medication ?Instructions ?Recorded nebulizer and compressor #1 ea 09/15/21 nebulizers (Aeroneb Go Nebulizer) #1 ea 04/18/22 albuterol sulfate 2.5 mg/3 mL 2.5 mg (3 mL) inhalation Q4H PRN 09/07/24 (0.083 %) solution for nebulization Shortness Of Breath/Wheezing #50 ea albuterol sulfate 90 mcg/actuation 1 inh inhalation QID PRN shortness 09/07/24 aerosol inhaler of breath or wheezing #6.7 grams doxycycline monohydrate 100 mg 100 mg PO BID #10 caps 09/07/24 capsule prednisone 20 mg tablet 40 mg (2 x 20 mg) PO DAILY #10 tabs 09/07/24 prednisone 20 mg tablet 40 mg (2 x 20 mg) PO DAILY #10 tabs 09/23/24 azithromycin 250 mg tablet See Rx Instructions PO .COMPLEX #6 09/28/24 tabs albuterol sulfate 90 mcg/actuation 2 puff inhalation Q4-6H PRN 10/07/24 aerosol inhaler shortness of breath or wheezing #8.5 grams fluticasone propionate 250 2 inh inhalation Q12H #60 ea 10/07/24 mcg/actuation blister powder for inhalation prednisone 50 mg tablet 50 mg PO DAILY #4 tabs 10/07/24 prednisone 20 mg tablet 40 mg (2 x 20 mg) PO DAILY #8 tabs 10/23/24 albuterol sulfate 90 mcg/actuation 2 puff inhalation Q4-6H PRN 10/30/24 aerosol inhaler shortness of breath or wheezing #8.5 grams fluticasone 500 mcg-salmeterol 50 1 inh inhalation BID #60 ea 10/30/24 mcg/dose blistr powdr for inhalation (Advair Diskus) diphenhydramine HCl 25 mg capsule 50 mg (2 x 25 mg) PO TID PRN 11/06/24 (Benadryl) allergic reaction #20 caps epinephrine 0.3 mg/0.3 mL 0.3 mg (0.3 mL) IM Q10M PRN 11/06/24 injection, auto-injector (EpiPen anaphylaxis #2 ea 2-Arvind) prednisone 20 mg tablet 40 mg (2 x 20 mg) PO DAILY #10 tabs 11/06/24 prednisone 10 mg tablet 10 mg PO DIRECTED #41 tabs 12/10/24 albuterol sulfate 90 mcg/actuation 2 puff inhalation Q4-6H PRN 12/30/24 aerosol inhaler shortness of breath or wheezing #8.5 grams prednisone 50 mg tablet 50 mg PO DAILY #4 tabs 12/30/24 Allergies Allergy/AdvReac Type Severity Reaction Status Date / Time shellfish derived Allergy Severe SHORTNESS Verified 12/10/24 01:21 OF BREATH, SWELLING shrimp Allergy Severe ANAPHYLAXIS Verified 12/10/24 01:21 Seasonal Allergies Allergy Shortness Verified 12/30/24 04:33 of Breath Review of Systems 2 Review of Systems: Constitutional : No Weight loss, No Fever, No Chills, No Night Sweats, No Fatigue, No Malaise ENT/Mouth : No Hearing loss, No Ear Pain, No Nasal Congestion, No Sinus Pain, No Hoarseness, No sore throat, No Rhinorrhea, No Swallowing Difficulty Eyes: No Eye Pain, No Swelling, No Redness, No Foreign Body, No Discharge, No Vision Changes Cardiovascular : No Chest Pain, No SOB, No Dyspnea on Exertion, No Orthopnea, No Edema, No Palpitations Respiratory : Complaining of wheezing, shortness of breath Gastrointestinal : No Nausea, No Vomiting, No Diarrhea, No Constipation, No abdominal Pain, No Hematochezia, No Melena Genitourinary : no irregular bleeding, No Dysuria, No Urinary Frequency, No Hematuria, No Urinary Incontinence, No Urgency, No Flank Pain, No Urinary Flow Changes, No Hesitancy Musculoskeletal : No joint pain, No Myalgias, No Joint Swelling Skin : No Skin Lesions, No rash Neuro : No Weakness, No Numbness, No Paresthesias, No Loss of Consciousness, No Dizziness, No Headache Psych : No Anxiety/Panic, No Depression, No SI/HI/AH/VH, No Social Issues, Heme/Lymph: No Bruising, No Bleeding,No Lymphadenopathy Endocrine : No Polyuria, No Polydipsia, No Temperature Intolerance [facility] Past Medical History Medical History Asthma Pneumonia due to 2019 novel coronavirus Asthma Family History Family History Mother Asthma Social History Social History Household Members: None Housing: House Do you presently have visiting nurse or other home services: No Alcohol intake: never Patient Tobacco Use Status: Never used Tobacco Smoked in Last 30 Days: No Use of substances other than those prescribed or required for medical reasons: No Advance Directives: No Advance Directives Information Provided: No Do you have a plan to hurt others: No Plan service: No Current occupational status: unemployed Physical Exam 2 Vital Signs: Vital Signs: Last Vital Signs Temp 97.6 F 12/30/24 05:53 Pulse 90 12/30/24 05:55 Resp 21 H 12/30/24 05:55 BP 137/85 12/30/24 05:53 Pulse Ox 97 12/30/24 05:53 O2 Del Method Room Air 12/30/24 05:53 BMI result Body Mass Index 42.6 Const: Other: Appearance: Alert. Oriented X3. No acute distress. Eyes: Pupils equal, round and reactive to light. ENT: Pharynx normal. Neck: Normal inspection. Neck supple. No lymph nodes noted. No crepitus CVS: Normal heart rate and rhythm. Pulses normal. Normal S1 and S2 Respiratory: Bilateral wheezing, no rales or crackles, moderate air movement Abdomen: Soft and nontender. No rigidity. No distention. Skin: Skin warm and dry. Normal skin color. Normal skin turgor. Extremities: No lower extremity edema. No Lacerations. No Rash Neuro: Oriented X 3. No motor deficit. No sensory deficit. Moving all extremities. No slurred speech. CN 2 through 12 grossly intact Psych: calm, cooperative, normal affect Course Course Course Narrative: On arrival, patient received Solu-Medrol, magnesium and nebulization treatments Patient states that he feels much better. Wheezing is no longer wheezing. Patient states that he feels well and feels ready to be discharged. Medications Administered Generic Name Dose Route Start Last Admin Trade Name Freq PRN Reason Stop Dose Admin Magnesium Sulfate 2 gm in 50 mls @ 25 mls/hr 12/30/24 05:37 12/30/24 06:35 Magnesium Sulfate/H2o IV 12/30/24 07:36 Infused ONCE ONE Infusion Discontinued Medications Generic Name Dose Route Start Last Admin Trade Name Freq PRN Reason Stop Dose Admin Albuterol Sulfate 7.5 mg/ 0 mg 12/30/24 05:52 12/30/24 05:54 Albuterol/Ipratropium 3 ml INHALE 12/30/24 05:53 1 each ONCE ONE Administration Methylprednisolone Sodium Succinate 125 mg 12/30/24 05:37 12/30/24 06:13 Methylprednisolone Sod Succ 125 Mg Vial IVPUSH 12/30/24 05:38 125 mg ONCE ONE Administration Medical Decision Making Lab Data [facility] Lab Attestation statement: I reviewed the patient's lab results. 12/30/24 04:57 12/30/24 04:57 Labs: Lab Results 12/30/24 Range/Units 04:57 WBC 12.0 H (4.8-10.8) X10*3/uL RBC 5.17 (4.60-5.80) X10*6/uL Hgb 14.6 (14.0-18.0) g/dl Hct 41.3 L (42.0-52.0) % MCV 79.9 L (80.0-98.0) fL MCH 28.2 (27.0-33.0) pg MCHC 35.4 (31.0-36.0) g/dl RDW 11.8 (11.0-16.0) % Plt Count 328 (160-400) X10*3/uL MPV 9.4 (9.4-12.4) fL Immature Gran % (Auto) 0.2 (0.0-0.4) % Neut % (Auto) 49.0 (45-73) % Lymph % (Auto) 31.1 (20-40) % Wilkinson % (Auto) 8.1 (2-11) % Eos % (Auto) 10.0 H (0-4) % Baso % (Auto) 1.6 (0-2) % Lymph # (Auto) 3.7 (1.2-4.9) X10*3/uL Wilkinson # (Auto) 1.0 (0.1-1.2) X10*3/uL Eos # (Auto) 1.2 H (0.0-0.4) X10*3/uL Baso # (Auto) 0.2 (0.0-0.2) X10*3/uL Abs Immat Gran (auto) 0.03 (0.00-0.03) X10*3/uL Absolute Neuts (auto) 5.9 (2.0-8.3) x10*3/uL Absolute Nucleated RBC 0.000 (0.0-0.012) X10*3/uL Nucleated RBC % (auto) 0.0 (0.0-0.2) /100WBC Sodium 138 (135-145) mmol/L Potassium 3.8 (3.3-5.1) mmol/L Chloride 105 (96-108) mmol/L Carbon Dioxide 23 (22-29) mmol/L Anion Gap 14 (12-20) BUN 8 L (9-16) mg/dL Creatinine 0.85 (0.5-1.4) mg/dL Estim Creat Clear Calc 149.8 Estimated GFR > 60 Random Glucose 104 (60-115) mg/dL Calcium 8.8 (8.4-10.2) mg/dL Magnesium 2.0 (1.6-2.6) mg/dL Total Bilirubin 0.4 (0.0-1.0) mg/dL AST 28 (5-37) U/L ALT 32 (0-40) U/L Alkaline Phosphatase 77 (39-117) U/L Total Protein 7.3 (6.5-8.0) g/dL Albumin 4.2 (3.5-5.0) g/dL Influenza Type A (PCR) NEGATIVE (Negative) Influenza Type B (PCR) NEGATIVE (Negative) RSV RNA Qual (PCR) NEGATIVE (Negative) SARS-CoV-2 RNA (RT-PCR) NEGATIVE (Negative) Independent Interpretation I performed an independent interpretation of an: Plain X-Ray Radiology Impression Discussion of test interpretation with radiology: I have reviewed the radiologist's reading. Radiologist Impression: The lungs are adequately expanded. No focal consolidation. No effusion or pneumothorax. Cardiac and mediastinal contours are within normal limits. No acute osseous abnormality Impression: No acute process. Critical Care Time Critical Care Time Critical Care Time: Yes Total Critical Care Time: 45 Attestation: I have personally provided critical care time. Time includes review of lab data, radiology results, discussion with consultants, and monitoring for potential decompensation. Intervention performed as documented. Discharge Plan Discharge Clinical Impression: Asthma exacerbation Patient Disposition: Home, Self-Care Instructions: Asthma (ED) Additional Instructions: Please follow-up with your primary care physician tomorrow. If you have any worsening or new symptoms, please return to the emergency room or call 911 Prescriptions: New albuterol sulfate 90 mcg/actuation HFA aerosol inhaler 2 puff inhalation Q4-6H PRN (Reason: shortness of breath or wheezing) Qty: 8.5 3RF prednisone 50 mg tablet 50 mg PO DAILY Qty: 4 0RF No Action (DME) nebulizer and compressor Device See Rx Instructions .Route Qty: 1 0RF Rx Instructions: As directed (DME) nebulizers [Aeroneb Go Nebulizer] Misc See Rx Instructions .Route Qty: 1 0RF Rx Instructions: As directed albuterol sulfate 2.5 mg /3 mL (0.083 %) Solution For Nebulization 2.5 mg inhalation Q4H PRN (Reason: Shortness Of Breath/Wheezing) Qty: 50 0RF doxycycline monohydrate 100 mg Capsule 100 mg PO BID Qty: 10 0RF prednisone 20 mg tablet 40 mg PO DAILY Qty: 10 0RF albuterol sulfate 90 mcg/actuation HFA aerosol inhaler 1 inh inhalation QID PRN (Reason: shortness of breath or wheezing) Qty: 6.7 0RF azithromycin 250 mg tablet See Rx Instructions .ROUTE .COMPLEX Qty: 6 0RF Rx Instructions: For 250 mg dose pack: take 500 mg today (day 1), then 250 mg for 4 days (days 2-5) albuterol sulfate 90 mcg/actuation HFA aerosol inhaler 2 puff inhalation Q4-6H PRN (Reason: shortness of breath or wheezing) Qty: 8.5 2RF prednisone 50 mg tablet 50 mg PO DAILY Qty: 4 0RF fluticasone propionate 250 mcg/actuation blister with device 2 inh inhalation Q12H Qty: 60 2RF prednisone 10 mg tablet 10 mg PO DIRECTED Qty: 41 0RF Rx Instructions: see taper instructions 60mg on day 1-5, 40mg on day 6, 30mg on day 7, 20mg on day 8, 10mg on day 9, 5mg on day 10 prednisone 20 mg tablet 40 mg PO DAILY Qty: 10 0RF prednisone 20 mg tablet 40 mg PO DAILY Qty: 8 0RF fluticasone propion-salmeterol [Advair Diskus] 500-50 mcg/dose blister with device 1 inh inhalation BID Qty: 60 1RF albuterol sulfate 90 mcg/actuation HFA aerosol inhaler 2 puff inhalation Q4-6H PRN (Reason: shortness of breath or wheezing) Qty: 8.5 1RF epinephrine [EpiPen 2-Arvind] 0.3 mg/0.3 mL auto-injector 0.3 mg IM Q10M PRN (Reason: anaphylaxis) Qty: 2 0RF Rx Instructions: for 2 doses diphenhydramine HCl [Benadryl] 25 mg capsule 50 mg PO TID PRN (Reason: allergic reaction) Qty: 20 0RF prednisone 20 mg tablet 40 mg PO DAILY Qty: 10 0RF Stand Alone Forms: Work/School Release Print Language: Taiwanese
[2024-12-30 07:42] VITALS: BP 134/81; PULSE 93; RESP 18; TEMP 36.6; O2SAT 95
== END 2024-12-30 07:47 | disposition home or self-care (01) ==
PROVIDERS: Emergency Provider Emergency Medicine
DX: J45.901 Unspecified asthma with (acute) exacerbation (principal); R06.02 Shortness of breath; Z03.818 Encounter for observation for suspected exposure to other biological agents ruled out
CPT/HCPCS: 0241U; 71045; 80053; 83735; 85025; 94640; 96365; 96375; 99284; 99285; J2919; J3475

== ENCOUNTER → 2024-12-30 04:41 | Outpatient (BNV) | payer OTHER, SELFPAY | PROVIDERS: Emergency Provider Emergency Medicine; Visit Provider Radiology Vascular & Interventional Radiology | DX: R06.02 Shortness of breath (principal) | CPT/HCPCS: 71045 ==

== ENCOUNTER 2025-01-15 02:27 | Emergency (ER) | payer OTHER, SELFPAY ==
[2025-01-15 02:32] VITALS: PULSE 97; RESP 24; TEMP 36.7; O2SAT 93; BMI 41.6
--- NOTE | 2025-01-15 02:48 | ED.SOB ---
HPI - SOB/Dyspnea General Chief Complaint: Dyspnea Stated Complaint: asthma Time Seen by Provider: 01/15/25 02:38 Source: patient Mode of arrival: ambulatory Limitations: no limitations History of Present Illness ED Provider: Dr. Briseida Manzano HPI Narrative: Patient comes to the emergency room complaining of wheezing. Patient states that for last 3 hours he has been wheezing despite trying updrafts at home. Patient denies any recent illnesses, denies cough. Patient reports that his seasonal allergies have been getting worse. Related Data Previous Rx's ?Medication ?Instructions ?Recorded nebulizer and compressor #1 ea 09/15/21 nebulizers (Aeroneb Go Nebulizer) #1 ea 04/18/22 albuterol sulfate 2.5 mg/3 mL 2.5 mg (3 mL) inhalation Q4H PRN 09/07/24 (0.083 %) solution for nebulization Shortness Of Breath/Wheezing #50 ea albuterol sulfate 90 mcg/actuation 1 inh inhalation QID PRN shortness 09/07/24 aerosol inhaler of breath or wheezing #6.7 grams doxycycline monohydrate 100 mg 100 mg PO BID #10 caps 09/07/24 capsule prednisone 20 mg tablet 40 mg (2 x 20 mg) PO DAILY #10 tabs 09/07/24 prednisone 20 mg tablet 40 mg (2 x 20 mg) PO DAILY #10 tabs 09/23/24 azithromycin 250 mg tablet See Rx Instructions PO .COMPLEX #6 09/28/24 tabs albuterol sulfate 90 mcg/actuation 2 puff inhalation Q4-6H PRN 10/07/24 aerosol inhaler shortness of breath or wheezing #8.5 grams fluticasone propionate 250 2 inh inhalation Q12H #60 ea 10/07/24 mcg/actuation blister powder for inhalation prednisone 50 mg tablet 50 mg PO DAILY #4 tabs 10/07/24 prednisone 20 mg tablet 40 mg (2 x 20 mg) PO DAILY #8 tabs 10/23/24 albuterol sulfate 90 mcg/actuation 2 puff inhalation Q4-6H PRN 10/30/24 aerosol inhaler shortness of breath or wheezing #8.5 grams fluticasone 500 mcg-salmeterol 50 1 inh inhalation BID #60 ea 10/30/24 mcg/dose blistr powdr for inhalation (Advair Diskus) diphenhydramine HCl 25 mg capsule 50 mg (2 x 25 mg) PO TID PRN 11/06/24 (Benadryl) allergic reaction #20 caps epinephrine 0.3 mg/0.3 mL 0.3 mg (0.3 mL) IM Q10M PRN 11/06/24 injection, auto-injector (EpiPen anaphylaxis #2 ea 2-Arvind) prednisone 20 mg tablet 40 mg (2 x 20 mg) PO DAILY #10 tabs 11/06/24 prednisone 10 mg tablet 10 mg PO DIRECTED #41 tabs 12/10/24 albuterol sulfate 90 mcg/actuation 2 puff inhalation Q4-6H PRN 12/30/24 aerosol inhaler shortness of breath or wheezing #8.5 grams prednisone 50 mg tablet 50 mg PO DAILY #4 tabs 12/30/24 albuterol sulfate 90 mcg/actuation 2 puff inhalation Q4-6H PRN 01/15/25 aerosol inhaler shortness of breath or wheezing #8.5 grams prednisone 50 mg tablet 50 mg PO DAILY #4 tabs 01/15/25 Allergies Allergy/AdvReac Type Severity Reaction Status Date / Time shellfish derived Allergy Severe SHORTNESS Verified 01/15/25 02:33 OF BREATH, SWELLING shrimp Allergy Severe ANAPHYLAXIS Verified 01/15/25 02:33 Seasonal Allergies Allergy Shortness Verified 01/15/25 02:33 of Breath Review of Systems Review of Systems: Constitutional : No Weight loss, No Fever, No Chills, No Night Sweats, No Fatigue, No Malaise ENT/Mouth : No Hearing loss, No Ear Pain, No Nasal Congestion, No Sinus Pain, No Hoarseness, No sore throat, No Rhinorrhea, No Swallowing Difficulty Eyes: No Eye Pain, No Swelling, No Redness, No Foreign Body, No Discharge, No Vision Changes Cardiovascular : No Chest Pain, No SOB, No Dyspnea on Exertion, No Orthopnea, No Edema, No Palpitations Respiratory : Complaining of cough, wheezing, shortness of breath Gastrointestinal : No Nausea, No Vomiting, No Diarrhea, No Constipation, No abdominal Pain, No Hematochezia, No Melena Genitourinary : no irregular bleeding, No Dysuria, No Urinary Frequency, No Hematuria, No Urinary Incontinence, No Urgency, No Flank Pain, No Urinary Flow Changes, No Hesitancy Musculoskeletal : No joint pain, No Myalgias, No Joint Swelling Skin : No Skin Lesions, No rash Neuro : No Weakness, No Numbness, No Paresthesias, No Loss of Consciousness, No Dizziness, No Headache Psych : No Anxiety/Panic, No Depression, No SI/HI/AH/VH, No Social Issues, Heme/Lymph: No Bruising, No Bleeding,No Lymphadenopathy Endocrine : No Polyuria, No Polydipsia, No Temperature Intolerance [facility] Past Medical History Medical History Asthma Pneumonia due to 2019 novel coronavirus Asthma Family History Family History Mother Asthma Social History Social History Household Members: None Housing: House Do you presently have visiting nurse or other home services: No Alcohol intake: never Patient Tobacco Use Status: Never used Tobacco Smoked in Last 30 Days: No Use of substances other than those prescribed or required for medical reasons: No Advance Directives: No Do you have a plan to hurt others: No Plan service: No Current occupational status: unemployed Physical Exam Vital Signs: Vital Signs: Last Vital Signs Temp 98.1 F 01/15/25 02:32 Pulse 91 01/15/25 02:55 Resp 18 01/15/25 02:55 Pulse Ox 93 01/15/25 05:13 O2 Del Method Room Air 01/15/25 02:32 BMI result Body Mass Index 41.6 Const: Other: Appearance: Alert. Oriented X3. No acute distress. Eyes: Pupils equal, round and reactive to light. ENT: Pharynx normal. Neck: Normal inspection. Neck supple. No lymph nodes noted. No crepitus CVS: Normal heart rate and rhythm. Pulses normal. Normal S1 and S2 Respiratory: No respiratory distress. Speaking in full sentences, oxygen saturation 93% on room air, bilateral wheezing with moderate air movement. Abdomen: Soft and nontender. No rigidity. No distention. Skin: Skin warm and dry. Normal skin color. Normal skin turgor. Extremities: No lower extremity edema. No Lacerations. No Rash Neuro: Oriented X 3. No motor deficit. No sensory deficit. Moving all extremities. No slurred speech. CN 2 through 12 grossly intact Psych: calm, cooperative, normal affect Course Course Course Narrative: Patient is well-known to the emergency department for asthma exacerbation. Patient receiving nebulization treatment, magnesium, Solu-Medrol Labs pain Medications Administered Discontinued Medications Generic Name Dose Route Start Last Admin Trade Name Darius PRN Reason Stop Dose Admin Albuterol Sulfate 7.5 mg/ 10 mg 01/15/25 02:49 01/15/25 02:54 Albuterol Sulfate 2.5 mg INHALE 01/15/25 02:50 10 mg ONCE ONE Administration Albuterol Sulfate 7.5 mg/ 0 mg 01/15/25 03:39 01/15/25 03:46 Albuterol/Ipratropium 3 ml INHALE 01/15/25 03:40 1 each ONCE ONE Administration Magnesium Sulfate/Dextrose 1 gm in 100 mls @ 300 mls/hr 01/15/25 02:39 01/15/25 03:48 Magnesium Sulfate/D5w IV 01/15/25 02:58 Infused ONCE ONE Infusion Methylprednisolone Sodium Succinate 125 mg 01/15/25 02:39 01/15/25 02:54 Methylprednisolone Sod Succ 125 Mg Vial IVPUSH 01/15/25 02:40 125 mg ONCE ONE Administration Medical Decision Making Medical Decision Making [facility] Narrative: My interpretation of labs: Hematology and chemistry no acute abnormalities, serology negative for influenza RSV and COVID After multiple nebulization treatments, IV steroids and magnesium, patient feels much better. Oxygen saturation ambulating 96% and above. Patient states that he feels much better and ready to be discharged. Differential Diagnosis Differential Diagnoses: The differential diagnosis associated with the presentation includes (Asthma exacerbation, viral URI) Admission/Observation Consideration of admission/observation: Escalation of care including admission/observation considered (Given patient's initial presentation and symptoms, observation was considered) Lab Data [facility] Lab Attestation statement: I reviewed the patient's lab results. 01/15/25 02:48 01/15/25 02:48 Labs: Lab Results 01/15/25 01/15/25 Range/Units 02:45 02:48 WBC 11.1 H (4.8-10.8) X10*3/uL RBC 5.24 (4.60-5.80) X10*6/uL Hgb 14.7 (14.0-18.0) g/dl Hct 41.7 L (42.0-52.0) % MCV 79.6 L (80.0-98.0) fL MCH 28.1 (27.0-33.0) pg MCHC 35.3 (31.0-36.0) g/dl RDW 11.8 (11.0-16.0) % Plt Count 362 (160-400) X10*3/uL MPV 9.1 L (9.4-12.4) fL Immature Gran % (Auto) 0.2 (0.0-0.4) % Neut % (Auto) 42.3 L (45-73) % Lymph % (Auto) 36.1 (20-40) % Humphreys % (Auto) 7.6 (2-11) % Eos % (Auto) 12.0 H (0-4) % Baso % (Auto) 1.8 (0-2) % Lymph # (Auto) 4.0 (1.2-4.9) X10*3/uL Humphreys # (Auto) 0.9 (0.1-1.2) X10*3/uL Eos # (Auto) 1.3 H (0.0-0.4) X10*3/uL Baso # (Auto) 0.2 (0.0-0.2) X10*3/uL Abs Immat Gran (auto) 0.02 (0.00-0.03) X10*3/uL Absolute Neuts (auto) 4.7 (2.0-8.3) x10*3/uL Absolute Nucleated RBC 0.000 (0.0-0.012) X10*3/uL Nucleated RBC % (auto) 0.0 (0.0-0.2) /100WBC Sodium 138 (135-145) mmol/L Potassium 4.1 (3.3-5.1) mmol/L Chloride 105 (96-108) mmol/L Carbon Dioxide 24 (22-29) mmol/L Anion Gap 13 (12-20) BUN 12 (9-16) mg/dL Creatinine 0.83 (0.5-1.4) mg/dL Estim Creat Clear Calc 151.4 Estimated GFR > 60 Random Glucose 130 H (60-115) mg/dL Calcium 9.2 (8.4-10.2) mg/dL Influenza Type A (PCR) NEGATIVE (Negative) Influenza Type B (PCR) NEGATIVE (Negative) RSV RNA Qual (PCR) NEGATIVE (Negative) SARS-CoV-2 RNA (RT-PCR) NEGATIVE (Negative) Critical Care Time Critical Care Time Critical Care Time: Yes Total Critical Care Time: 45 Attestation: I have personally provided critical care time. Time includes review of lab data, radiology results, discussion with consultants, and monitoring for potential decompensation. Intervention performed as documented. Discharge Plan Discharge Clinical Impression: Asthma Qualifiers: Asthma severity: unspecified severity Asthma persistence: unspecified Asthma complication type: unspecified Qualified Code(s): J45.909 - Unspecified asthma, uncomplicated Patient Disposition: Home, Self-Care Instructions: Asthma (ED) Additional Instructions: Please follow-up with your primary care physician tomorrow. If you have any worsening or new symptoms, please return to the emergency room or call 911 Prescriptions: New albuterol sulfate 90 mcg/actuation HFA aerosol inhaler 2 puff inhalation Q4-6H PRN (Reason: shortness of breath or wheezing) Qty: 8.5 2RF prednisone 50 mg tablet 50 mg PO DAILY Qty: 4 0RF No Action (DME) nebulizer and compressor Device See Rx Instructions .Route Qty: 1 0RF Rx Instructions: As directed (DME) nebulizers [Aeroneb Go Nebulizer] Mis See Rx Instructions .Route Qty: 1 0RF Rx Instructions: As directed albuterol sulfate 2.5 mg /3 mL (0.083 %) Solution For Nebulization 2.5 mg inhalation Q4H PRN (Reason: Shortness Of Breath/Wheezing) Qty: 50 0RF doxycycline monohydrate 100 mg Capsule 100 mg PO BID Qty: 10 0RF prednisone 20 mg tablet 40 mg PO DAILY Qty: 10 0RF albuterol sulfate 90 mcg/actuation HFA aerosol inhaler 1 inh inhalation QID PRN (Reason: shortness of breath or wheezing) Qty: 6.7 0RF azithromycin 250 mg tablet See Rx Instructions .ROUTE .COMPLEX Qty: 6 0RF Rx Instructions: For 250 mg dose pack: take 500 mg today (day 1), then 250 mg for 4 days (days 2-5) albuterol sulfate 90 mcg/actuation HFA aerosol inhaler 2 puff inhalation Q4-6H PRN (Reason: shortness of breath or wheezing) Qty: 8.5 2RF prednisone 50 mg tablet 50 mg PO DAILY Qty: 4 0RF fluticasone propionate 250 mcg/actuation blister with device 2 inh inhalation Q12H Qty: 60 2RF prednisone 10 mg tablet 10 mg PO DIRECTED Qty: 41 0RF Rx Instructions: see taper instructions 60mg on day 1-5, 40mg on day 6, 30mg on day 7, 20mg on day 8, 10mg on day 9, 5mg on day 10 prednisone 20 mg tablet 40 mg PO DAILY Qty: 10 0RF prednisone 20 mg tablet 40 mg PO DAILY Qty: 8 0RF fluticasone propion-salmeterol [Advair Diskus] 500-50 mcg/dose blister with device 1 inh inhalation BID Qty: 60 1RF albuterol sulfate 90 mcg/actuation HFA aerosol inhaler 2 puff inhalation Q4-6H PRN (Reason: shortness of breath or wheezing) Qty: 8.5 1RF epinephrine [EpiPen 2-Arvind] 0.3 mg/0.3 mL auto-injector 0.3 mg IM Q10M PRN (Reason: anaphylaxis) Qty: 2 0RF Rx Instructions: for 2 doses diphenhydramine HCl [Benadryl] 25 mg capsule 50 mg PO TID PRN (Reason: allergic reaction) Qty: 20 0RF prednisone 20 mg tablet 40 mg PO DAILY Qty: 10 0RF albuterol sulfate 90 mcg/actuation HFA aerosol inhaler 2 puff inhalation Q4-6H PRN (Reason: shortness of breath or wheezing) Qty: 8.5 3RF prednisone 50 mg tablet 50 mg PO DAILY Qty: 4 0RF Referrals: Kip Bellamy MD [Physician] - 01/20/25 (Poorly-controlled asthma) Stand Alone Forms: Work/School Release Print Language: Slovenian
[2025-01-15 02:51] LABS: MANUAL DIFF FLAG NO
[2025-01-15 02:53] LABS: Basophils Absolute Auto 0.2 X10*3/uL (0.0-0.2); Basophils Percent Auto 1.8 % (0-2); Eosinophils Absolute Auto 1.3 X10*3/uL (0.0-0.4); Hematocrit 41.7 % (42.0-52.0); Hemoglobin 14.7 g/dl (14.0-18.0); Imm Gran Abs Auto 0.02 X10*3/uL (0.00-0.03); Imm Gran Pct Auto 0.2 % (0.0-0.4); Lymphocytes Percent Auto 36.1 % (20-40); Mean Corpuscular HGB Conc 35.3 g/dl (31.0-36.0); Mean Corpuscular Hemoglobin 28.1 pg (27.0-33.0); Mean Corpuscular Volume 79.6 fL (80.0-98.0); Mean Platelet Volume 9.1 fL (9.4-12.4); Monocytes Absolute Auto 0.9 X10*3/uL (0.1-1.2); Monocytes Percent Auto 7.6 % (2-11); Neutrophils Absolute Auto 4.7 x10*3/uL (2.0-8.3); Neutrophils Percent Auto 42.3 % (45-73); Platelet Count 362 X10*3/uL (160-400); Red Blood Count 5.24 X10*6/uL (4.60-5.80); Red Cell Distribution Width 11.8 % (11.0-16.0); White Blood Count 11.1 X10*3/uL (4.8-10.8)
[2025-01-15] MEDS: Magnesium Sulfate/D5W 1 GM/100 ML PIGGYBACK IV (02:54)
[2025-01-15] MEDS: Albuterol Sulfate 7.5 MG, Albuterol Sulfate (0.083%) 2.5 MG 10 MG INHALE (02:54)
[2025-01-15 02:55] VITALS: PULSE 91; RESP 18; O2SAT 94
--- NOTE | 2025-01-15 02:59 | PC.NURSE ---
Iv placed in L AC, medications administered per MAR, pt tolerated well.
[2025-01-15 03:06] LABS: Anion Gap 13 (12-20); Blood Urea Nitrogen 12 mg/dL (9-16); Calcium 9.2 mg/dL (8.4-10.2); Carbon Dioxide 24 mmol/L (22-29); Chloride 105 mmol/L (96-108); Creatinine Clr Calc Pharmacy 151.4; Estimated Glomerular Filt Rate > 60; Glucose Random 130 mg/dL (60-115); Potassium 4.1 mmol/L (3.3-5.1); Sodium 138 mmol/L (135-145)
[2025-01-15 03:26] LABS: Influenza A PCR NEGATIVE (Negative); Influenza B PCR NEGATIVE (Negative); Resp Syncy Virus RNA Qual PCR NEGATIVE (Negative); SARS COV2 PCR INHOUSE NEGATIVE (Negative)
[2025-01-15] MEDS: Albuterol Sulfate 7.5 MG, Albuterol/Iprat 2.5/0.5MG 3 ML 3 ML INHALE (03:46)
--- NOTE | 2025-01-15 03:48 | PC.NURSE ---
pt reports he still feels short of breath at this time, rt at bedside admin another treatment
[2025-01-15 05:13] VITALS: O2SAT 93
--- NOTE | 2025-01-15 05:13 | PC.NURSE ---
pt taken for ambulation trial on R/A, pt tolerated well and does not complain of SOB
[2025-01-15 05:55] VITALS: BP 115/71; PULSE 112; RESP 16; TEMP 36.7; O2SAT 93
== END 2025-01-15 05:57 | disposition home or self-care (01) ==
PROVIDERS: Emergency Provider Emergency Medicine
DX: J45.909 Unspecified asthma, uncomplicated (principal); Z79.899 Other long term (current) drug therapy
CPT/HCPCS: 0241U; 80048; 85025; 94640; 96365; 96375; 99284; 99285; J2919; J3475

== ENCOUNTER 2025-01-19 05:09 | Emergency (ER) | payer OTHER, SELFPAY ==
[2025-01-19 05:19] VITALS: BP 120/72; PULSE 86; RESP 20; TEMP 36.6; O2SAT 96; BMI 42.3
--- NOTE | 2025-01-19 06:20 | PC.NURSE ---
patient does not appear to be in distress at this time, respirations even and unlabored. states he has been using his home inhalers/nebs. states he feels better than usual and decided to come to the emergency dept before he worsened. remains on room air 96% currently. resting quietly in room, call erickson within reach. awaiting ED provider.
[2025-01-19 07:54] VITALS: BP 132/77; PULSE 99; RESP 17; TEMP 36.7; O2SAT 95
--- NOTE | 2025-01-19 08:20 | ED_ITS ---
HPI - Asthma General Chief Complaint: Asthma Stated Complaint: asthma Time Seen by Provider: 01/19/25 08:20 Source: patient Mode of arrival: ambulatory Limitations: no limitations History of Present Illness ED Provider: HPI Narrative: 29-year-old male with history of obesity, asthma, nonsmoker, multiple ER visits, does not have a PCP at this time, states he had a really hard time breathing came into the ER just in case by the time I evaluated him, he states he feels much better, we discussed his medication regimen and it does not appear that he has been prescribed inhaled steroids he is however on allergy pills and right now is or pollen season. No fevers or chills no hemoptysis. MD complaint: asthma attack Related Data Previous Rx's ?Medication ?Instructions ?Recorded nebulizer and compressor #1 ea 09/15/21 nebulizers (Aeroneb Go Nebulizer) #1 ea 04/18/22 albuterol sulfate 2.5 mg/3 mL 2.5 mg (3 mL) inhalation Q4H PRN 09/07/24 (0.083 %) solution for nebulization Shortness Of Breath/Wheezing #50 ea albuterol sulfate 90 mcg/actuation 1 inh inhalation QID PRN shortness 09/07/24 aerosol inhaler of breath or wheezing #6.7 grams doxycycline monohydrate 100 mg 100 mg PO BID #10 caps 09/07/24 capsule prednisone 20 mg tablet 40 mg (2 x 20 mg) PO DAILY #10 tabs 09/07/24 prednisone 20 mg tablet 40 mg (2 x 20 mg) PO DAILY #10 tabs 09/23/24 azithromycin 250 mg tablet See Rx Instructions PO .COMPLEX #6 09/28/24 tabs albuterol sulfate 90 mcg/actuation 2 puff inhalation Q4-6H PRN 10/07/24 aerosol inhaler shortness of breath or wheezing #8.5 grams fluticasone propionate 250 2 inh inhalation Q12H #60 ea 10/07/24 mcg/actuation blister powder for inhalation prednisone 50 mg tablet 50 mg PO DAILY #4 tabs 10/07/24 prednisone 20 mg tablet 40 mg (2 x 20 mg) PO DAILY #8 tabs 10/23/24 albuterol sulfate 90 mcg/actuation 2 puff inhalation Q4-6H PRN 10/30/24 aerosol inhaler shortness of breath or wheezing #8.5 grams fluticasone 500 mcg-salmeterol 50 1 inh inhalation BID #60 ea 10/30/24 mcg/dose blistr powdr for inhalation (Advair Diskus) diphenhydramine HCl 25 mg capsule 50 mg (2 x 25 mg) PO TID PRN 11/06/24 (Benadryl) allergic reaction #20 caps epinephrine 0.3 mg/0.3 mL 0.3 mg (0.3 mL) IM Q10M PRN 11/06/24 injection, auto-injector (EpiPen anaphylaxis #2 ea 2-Arvind) prednisone 20 mg tablet 40 mg (2 x 20 mg) PO DAILY #10 tabs 11/06/24 prednisone 10 mg tablet 10 mg PO DIRECTED #41 tabs 12/10/24 albuterol sulfate 90 mcg/actuation 2 puff inhalation Q4-6H PRN 12/30/24 aerosol inhaler shortness of breath or wheezing #8.5 grams prednisone 50 mg tablet 50 mg PO DAILY #4 tabs 12/30/24 albuterol sulfate 90 mcg/actuation 2 puff inhalation Q4-6H PRN 01/15/25 aerosol inhaler shortness of breath or wheezing #8.5 grams prednisone 50 mg tablet 50 mg PO DAILY #4 tabs 01/15/25 fluticasone 250 mcg-salmeterol 50 1 inh inhalation BID #60 ea 01/19/25 mcg/dose blistr powdr for inhalation Allergies Allergy/AdvReac Type Severity Reaction Status Date / Time shellfish derived Allergy Severe SHORTNESS Verified 01/19/25 05:21 OF BREATH, SWELLING shrimp Allergy Severe ANAPHYLAXIS Verified 01/19/25 05:21 Seasonal Allergies Allergy Shortness Verified 01/19/25 05:21 of Breath PMFSH Past Medical History Medical History Asthma Pneumonia due to 2019 novel coronavirus Asthma Family History Family History Mother Asthma Social History Social History Household Members: None Housing: House Do you presently have visiting nurse or other home services: No Alcohol intake: never Patient Tobacco Use Status: Never used Tobacco Smoked in Last 30 Days: No Advance Directives: No Advance Directives Information Provided: No Do you have a plan to hurt others: No Plan service: No Current occupational status: unemployed Physical Exam Vital Signs: Vital Signs: Last Vital Signs Temp 98.1 F 01/19/25 07:54 Pulse 99 01/19/25 07:54 Resp 17 01/19/25 07:54 BP 132/77 01/19/25 07:54 Pulse Ox 95 01/19/25 07:54 O2 Del Method Room Air 01/19/25 07:54 BMI result Body Mass Index 42.3 Const: Other: * Gen: ?Overweight, slightly older than stated age * HEENT: PERRLA, EOMI, MMM, * Neck: Supple, no LAD * CV: RRR, no obvious murmurs appreciated * Resp: ?No wheezing rales rhonchi no stridor moving air well * Abd: ?Bowel sounds are present, no tenderness no rebound no rigidity * MSK: FROM, strength 5/5 all extremities * Skin: Warm, dry, intact, * Neuro: ?Alert and oriented x3, moving upper and lower extremities symmetrically, no obvious facial asymmetry noted Medical Decision Making Medical Decision Making MDM Narrative: At the time of my evaluation patient was already feeling well, she is not dyspneic, not wheezing, has had no fevers, multiple x-rays in the past, multiple ER visits, recent ER visits and he finished a course of steroids, she used to be on inhaled steroids but does not sound like he is using Advair Diskus at this time just rescue inhalers I will make sure that he has this medication, he is currently awaiting to have a PCP Differential Diagnosis Differential Diagnoses: The differential diagnosis associated with the presentation includes CHF,/Asthma COPD exacerbation, pneumonia, pneumothorax, ACS, PE, Discharge Plan Discharge Clinical Impression: Asthma Patient Disposition: Home, Self-Care Additional Instructions: You were evaluated with an asthma attack that you had before coming into the ER, at the time my evaluation you were doing well, I reviewed your prior medications it seems that you have been on this medication in the past, this is an inhaled steroid, 1 inhalation twice a day, this will significantly limit the use of your rescue inhaler, and hopefully decrease the number of times you have to be seen in the ER. Continue using your medications for seasonal allergies I think that is a contributing factor. And make sure that you have a PCP involved in the care. I am also hoping that by using the medication that I am prescribing if he is not using an already it will decrease the need to use all medications when you come to the ER as those carry multiple other risks with prolonged use. Prescriptions: New fluticasone propion-salmeterol 250-50 mcg/dose blister with device 1 inh inhalation BID Qty: 60 0RF No Action (DME) nebulizer and compressor Device See Rx Instructions .Route Qty: 1 0RF Rx Instructions: As directed (DME) nebulizers [Aeroneb Go Nebulizer] Misc See Rx Instructions .Route Qty: 1 0RF Rx Instructions: As directed albuterol sulfate 2.5 mg /3 mL (0.083 %) Solution For Nebulization 2.5 mg inhalation Q4H PRN (Reason: Shortness Of Breath/Wheezing) Qty: 50 0RF doxycycline monohydrate 100 mg Capsule 100 mg PO BID Qty: 10 0RF prednisone 20 mg tablet 40 mg PO DAILY Qty: 10 0RF albuterol sulfate 90 mcg/actuation HFA aerosol inhaler 1 inh inhalation QID PRN (Reason: shortness of breath or wheezing) Qty: 6.7 0RF azithromycin 250 mg tablet See Rx Instructions .ROUTE .COMPLEX Qty: 6 0RF Rx Instructions: For 250 mg dose pack: take 500 mg today (day 1), then 250 mg for 4 days (days 2-5) albuterol sulfate 90 mcg/actuation HFA aerosol inhaler 2 puff inhalation Q4-6H PRN (Reason: shortness of breath or wheezing) Qty: 8.5 2RF prednisone 50 mg tablet 50 mg PO DAILY Qty: 4 0RF fluticasone propionate 250 mcg/actuation blister with device 2 inh inhalation Q12H Qty: 60 2RF prednisone 10 mg tablet 10 mg PO DIRECTED Qty: 41 0RF Rx Instructions: see taper instructions 60mg on day 1-5, 40mg on day 6, 30mg on day 7, 20mg on day 8, 10mg on day 9, 5mg on day 10 prednisone 20 mg tablet 40 mg PO DAILY Qty: 10 0RF prednisone 20 mg tablet 40 mg PO DAILY Qty: 8 0RF fluticasone propion-salmeterol [Advair Diskus] 500-50 mcg/dose blister with device 1 inh inhalation BID Qty: 60 1RF albuterol sulfate 90 mcg/actuation HFA aerosol inhaler 2 puff inhalation Q4-6H PRN (Reason: shortness of breath or wheezing) Qty: 8.5 1RF epinephrine [EpiPen 2-Arvind] 0.3 mg/0.3 mL auto-injector 0.3 mg IM Q10M PRN (Reason: anaphylaxis) Qty: 2 0RF Rx Instructions: for 2 doses diphenhydramine HCl [Benadryl] 25 mg capsule 50 mg PO TID PRN (Reason: allergic reaction) Qty: 20 0RF prednisone 20 mg tablet 40 mg PO DAILY Qty: 10 0RF albuterol sulfate 90 mcg/actuation HFA aerosol inhaler 2 puff inhalation Q4-6H PRN (Reason: shortness of breath or wheezing) Qty: 8.5 3RF prednisone 50 mg tablet 50 mg PO DAILY Qty: 4 0RF albuterol sulfate 90 mcg/actuation HFA aerosol inhaler 2 puff inhalation Q4-6H PRN (Reason: shortness of breath or wheezing) Qty: 8.5 2RF prednisone 50 mg tablet 50 mg PO DAILY Qty: 4 0RF Print Language: [place]
[2025-01-19 08:48] VITALS: BP 132/77; PULSE 99; RESP 17; TEMP 36.7; O2SAT 95
== END 2025-01-19 08:49 | disposition home or self-care (01) ==
PROVIDERS: Emergency Provider Emergency Medicine
DX: J45.909 Unspecified asthma, uncomplicated (principal)
CPT/HCPCS: 99282; 99284

== ENCOUNTER 2025-02-10 00:22 | Emergency (ER) | payer OTHER, SELFPAY ==
[2025-02-10 00:28] VITALS: BP 156/88; PULSE 90; RESP 22; TEMP 36.9; O2SAT 94; BMI 43.0
[2025-02-10] MEDS: Albuterol Sulfate 2.5 MG, Albuterol/Iprat 2.5/0.5MG 3 ML 3 ML INHALE (01:25)
[2025-02-10 01:26] VITALS: PULSE 88; RESP 18; O2SAT 94
[2025-02-10] MEDS: Magnesium Sulfate/H2O 2 GM/50 ML PIGGYBACK IV (01:26)
--- NOTE | 2025-02-10 01:27 | PC.NURSE ---
unable to scan solumedrol. barcode not accepted, pyxis stating there are none in bin despite there being many upon inventory count
--- NOTE | 2025-02-10 01:41 | ED_ITS ---
HPI - Asthma General Chief Complaint: Asthma Stated Complaint: SOB Time Seen by Provider: 02/10/25 01:12 Source: patient Mode of arrival: ambulatory Limitations: no limitations History of Present Illness ED Provider: Dr. Briseida Manzano HPI Narrative: Patient comes to the emergency room complaining of shortness of breath. Patient known to the emergency department for asthma exacerbations. Patient states that he has all of his medications since stuck but they did work well at home. Patient denies any recent URIs Related Data Previous Rx's ?Medication ?Instructions ?Recorded nebulizer and compressor #1 ea 09/15/21 nebulizers (Aeroneb Go Nebulizer) #1 ea 04/18/22 albuterol sulfate 2.5 mg/3 mL 2.5 mg (3 mL) inhalation Q4H PRN 09/07/24 (0.083 %) solution for nebulization Shortness Of Breat h/Wheezing #50 ea albuterol sulfate 90 mcg/actuation 1 inh inhalation QI D PRN shortness 09/07/24 aerosol inhaler of breath or wheezing #6.7 g dean doxycycline monohydrate 100 mg 100 mg PO BID #10 caps 09/07/24 capsule prednisone 20 mg tablet 40 mg (2 x 20 mg) PO DAILY # 10 tabs 09/07/24 prednisone 20 mg tablet 40 mg (2 x 20 mg) PO DAILY # 10 tabs 09/23/24 azithromycin 250 mg tablet See Rx Instructions PO .COM PLEX #6 09/28/24 tabs albuterol sulfate 90 mcg/actuation 2 puff inhalation Q 4-6H PRN 10/07/24 aerosol inhaler shortness of breath or wheez ing #8.5 grams fluticasone propionate 250 2 inh inhalation Q12H #60 e a 10/07/24 mcg/actuation blister powder for inhalation prednisone 50 mg tablet 50 mg PO DAILY #4 tabs 10/07 prednisone 20 mg tablet 40 mg (2 x 20 mg) PO DAILY # 8 tabs 10/23/24 albuterol sulfate 90 mcg/actuation 2 puff inhalation Q 4-6H PRN 10/30/24 aerosol inhaler shortness of breath or wheez ing #8.5 grams fluticasone 500 mcg-salmeterol 50 1 inh inhalation BID #60 ea 10/30/24 mcg/dose blistr powdr for inhalation (Advair Diskus) diphenhydramine HCl 25 mg capsule 50 mg (2 x 25 mg) PO TID PRN 11/06/24 (Benadryl) allergic reaction #20 caps epinephrine 0.3 mg/0.3 mL 0.3 mg (0.3 mL) IM Q10M PRN 11/06/24 injection, auto-injector (EpiPen anaphylaxis #2 ea 2-Arvind) prednisone 20 mg tablet 40 mg (2 x 20 mg) PO DAILY # 10 tabs 11/06/24 prednisone 10 mg tablet 10 mg PO DIRECTED #41 tab s 12/10/24 albuterol sulfate 90 mcg/actuation 2 puff inhalation Q 4-6H PRN 12/30/24 aerosol inhaler shortness of breath or wheez ing #8.5 grams prednisone 50 mg tablet 50 mg PO DAILY #4 tabs 12/30 albuterol sulfate 90 mcg/actuation 2 puff inhalation Q 4-6H PRN 01/15/25 aerosol inhaler shortness of breath or wheez ing #8.5 grams prednisone 50 mg tablet 50 mg PO DAILY #4 tabs 01/15 fluticasone 250 mcg-salmeterol 50 1 inh inhalation BID #60 ea 01/19/25 mcg/dose blistr powdr for inhalation prednisone 50 mg tablet 50 mg PO DAILY #4 tabs 02/10 Allergies Allergy/AdvReac Type Severity Reaction Status Date / Time shellfish derived Allergy Severe SHORTNESS Verified 02/10/25 00:31 OF BREATH, SWELLING shrimp Allergy Severe ANAPHYLAXIS Verified 02/10/25 00:31 Seasonal Allergies Allergy Shortness Verified 02/10/25 00:31 of Breath Review of Systems Review of Systems: Constitutional : No Weight loss, No Fever, No Chills, No Night Sweats, No Fatigue, No Malaise ENT/Mouth : No Hearing loss, No Ear Pain, No Nasal Congestion, No Sinus Pain, No Hoarseness, No sore throat, No Rhinorrhea, No Swallowing Difficulty Eyes: No Eye Pain, No Swelling, No Redness, No Foreign Body, No Discharge, No Vision Changes Cardiovascular : No Chest Pain, No SOB, No Dyspnea on Exertion, No Orthopnea, No Edema, No Palpitations Respiratory : complaining of occasional dry cough, complaining of wheezing and shortness of breath Gastrointestinal : No Nausea, No Vomiting, No Diarrhea, No Constipation, No abdominal Pain, No Hematochezia, No Melena Genitourinary : no irregular bleeding, No Dysuria, No Urinary Frequency, No Hematuria, No Urinary Incontinence, No Urgency, No Flank Pain, No Urinary Flow Changes, No Hesitancy Musculoskeletal : No joint pain, No Myalgias, No Joint Swelling Skin : No Skin Lesions, No rash Neuro : No Weakness, No Numbness, No Paresthesias, No Loss of Consciousness, No Dizziness, No Headache Psych : No Anxiety/Panic, No Depression, No SI/HI/AH/VH, No Social Issues, Heme/Lymph: No Bruising, No Bleeding,No Lymphadenopathy Endocrine : No Polyuria, No Polydipsia, No Temperature Intolerance [facility] Past Medical History Medical History Asthma Pneumonia due to 2019 novel coronavirus Asthma Family History Family History Mother Asthma Social History Social History Household Members: None Housing: House Do you presently have visiting nurse or other home services: No Alcohol intake: never Patient Tobacco Use Status: Never used Tobacco Advance Directives: No Advance Directives Information Provided: No Do you have a plan to hurt others: No Plan service: No Current occupational status: unemployed Physical Exam Vital Signs: Vital Signs: Last Vital Signs Temp 98.5 F 02/10/25 00:28 Pulse 88 02/10/25 01:26 Resp 18 02/10/25 01:26 BP 156/88 H 02/10/25 00:28 Pulse Ox 94 02/10/25 00:28 O2 Del Method Room Air 02/10/25 00:28 BMI result Body Mass Index 43.0 Const: Other: Appearance: Alert. Oriented X3. No acute distress. Eyes: Pupils equal, round and reactive to light. ENT: Pharynx normal. Neck: Normal inspection. Neck supple. No lymph nodes noted. No crepitus CVS: Normal heart rate and rhythm. Pulses normal. Normal S1 and S2 Respiratory: No respiratory distress. good air movement, minimal bilateral expiratory wheezing, speaking in full sentences Abdomen: Soft and nontender. No rigidity. No distention. Skin: Skin warm and dry. Normal skin color. Normal skin turgor. Extremities: No lower extremity edema. No Lacerations. No Rash Neuro: Oriented X 3. No motor deficit. No sensory deficit. Moving all extremities. No slurred speech. CN 2 through 12 grossly intact Psych: calm, cooperative, normal affect Course Course Course Narrative: patient has been wheezing. patient's seems to be comfortable breathing. No respiratory distress. Patient is receiving IV Solu-Medrol, IV magnesium and a brown treatment. We will assess the patient make sure that he can walk without desaturating. Then patient will be discharged home. Patient states that today he feels better than other times that he has been here. Medications Administered Generic Name Dose Route Start Last Admin Trade Name Freq PRN Reason Stop Dose Admin Magnesium Sulfate 2 gm in 50 mls @ 25 mls/hr 02/10/25 01:12 02/10/25 01:26 Magnesium Sulfate/H2o IV 02/10/25 03:11 25 mls/hr ONCE ONE Administration Discontinued Medications Generic Name Dose Route Start Last Admin Trade Name Freq PRN Reason Stop Dose Admin Albuterol Sulfate 2.5 mg/ 0 mg 02/10/25 01:20 02/10/25 01:25 Albuterol/Ipratropium 3 ml INHALE 02/10/25 01:21 1 dose ONCE ONE Administration Methylprednisolone Sodium Succinate 125 mg 02/10/25 01:12 02/10/25 01:27 Methylprednisolone Sod Succ 125 Mg Vial IVPUSH 02/10/25 01:13 125 mg ONCE ONE Administration Medical Decision Making Medical Decision Making [facility] Narrative: patient walking around the emergency room, oxygen saturation stayed in the 90s with a desaturation. Patient has no recent URIs, no fever chills at this time, imaging is not indicated. Differential Diagnosis Differential Diagnoses: The differential diagnosis associated with the p resentation includes ( Asthma exacerbation, viral URI) Critical Care Time Critical Care Time Critical Care Time: Yes Total Critical Care Time: 35 Attestation: I have personally provided critical care time. Time includes review of lab data, radiology results, discussion with consultants, and monitoring for potential decompensation. Intervention performed as documented. Discharge Plan Discharge Clinical Impression: Asthma Qualifiers: Asthma severity: unspecified severity Asthma persistence: unspecified Asthma complication type: unspecified Qualified Code(s): J45.909 - Unspecified asthma, uncomplicated Patient Disposition: Home, Self-Care Instructions: Asthma (ED) Additional Instructions: Please follow-up with your primary care physician tomorrow. If you have any worsening or new symptoms, please return to the emergency room or call 911 Prescriptions: New prednisone 50 mg tablet 50 mg PO DAILY Qty: 4 0RF No Action (DME) nebulizer and compressor Device See Rx Instructions .Route Qty: 1 0RF Rx Instructions: As directed (DME) nebulizers [Aeroneb Go Nebulizer] Misc See Rx Instructions .Route Qty: 1 0RF Rx Instructions: As directed albuterol sulfate 2.5 mg /3 mL (0.083 %) Solution For Nebulization 2.5 mg inhalation Q4H PRN (Reason: Shortness Of Breath/Wheezing) Qty: 50 0RF doxycycline monohydrate 100 mg Capsule 100 mg PO BID Qty: 10 0RF prednisone 20 mg tablet 40 mg PO DAILY Qty: 10 0RF albuterol sulfate 90 mcg/actuation HFA aerosol inhaler 1 inh inhalation QID PRN (Reason: shortness of breath or wheezing) Qty: 6.7 0RF azithromycin 250 mg tablet See Rx Instructions .ROUTE .COMPLEX Qty: 6 0RF Rx Instructions: For 250 mg dose pack: take 500 mg today (day 1), then 250 mg for 4 days (days 2-5) albuterol sulfate 90 mcg/actuation HFA aerosol inhaler 2 puff inhalation Q4-6H PRN (Reason: shortness of breath or wheezing) Qty: 8.5 2RF prednisone 50 mg tablet 50 mg PO DAILY Qty: 4 0RF fluticasone propionate 250 mcg/actuation blister with device 2 inh inhalation Q12H Qty: 60 2RF prednisone 10 mg tablet 10 mg PO DIRECTED Qty: 41 0RF Rx Instructions: see taper instructions 60mg on day 1-5, 40mg on day 6, 30mg on day 7, 20mg on day 8, 10mg on day 9, 5mg on day 10 prednisone 20 mg tablet 40 mg PO DAILY Qty: 10 0RF prednisone 20 mg tablet 40 mg PO DAILY Qty: 8 0RF fluticasone propion-salmeterol [Advair Diskus] 500-50 mcg/dose blister with device 1 inh inhalation BID Qty: 60 1RF albuterol sulfate 90 mcg/actuation HFA aerosol inhaler 2 puff inhalation Q4-6H PRN (Reason: shortness of breath or wheezing) Qty: 8.5 1RF epinephrine [EpiPen 2-Arvind] 0.3 mg/0.3 mL auto-injector 0.3 mg IM Q10M PRN (Reason: anaphylaxis) Qty: 2 0RF Rx Instructions: for 2 doses diphenhydramine HCl [Benadryl] 25 mg capsule 50 mg PO TID PRN (Reason: allergic reaction) Qty: 20 0RF prednisone 20 mg tablet 40 mg PO DAILY Qty: 10 0RF albuterol sulfate 90 mcg/actuation HFA aerosol inhaler 2 puff inhalation Q4-6H PRN (Reason: shortness of breath or wheezing) Qty: 8.5 3RF prednisone 50 mg tablet 50 mg PO DAILY Qty: 4 0RF albuterol sulfate 90 mcg/actuation HFA aerosol inhaler 2 puff inhalation Q4-6H PRN (Reason: shortness of breath or wheezing) Qty: 8.5 2RF prednisone 50 mg tablet 50 mg PO DAILY Qty: 4 0RF fluticasone propion-salmeterol 250-50 mcg/dose blister with device 1 inh inhalation BID Qty: 60 0RF Print Language: Georgian
--- NOTE | 2025-02-10 01:58 | PC.NURSE ---
bilateral insp and exp wheezing resolved. pt states he feels alot better.
--- NOTE | 2025-02-10 02:05 | PC.NURSE ---
Magnesium sulfate/H2O 2GM/50mL completely infused at this time
[2025-02-10 02:20] VITALS: BP 136/84; PULSE 92; RESP 20; TEMP 36.4; O2SAT 94
== END 2025-02-10 02:22 | disposition home or self-care (01) ==
PROVIDERS: Emergency Provider Emergency Medicine; PCP Internal Medicine
DX: J45.909 Unspecified asthma, uncomplicated (principal); R06.02 Shortness of breath
CPT/HCPCS: 94640; 96374; 96375; 99283; 99284; J2919; J3475

== ENCOUNTER 2025-02-17 02:18 | Emergency (ER) | payer OTHER, SELFPAY ==
[2025-02-17 02:26] VITALS: BP 129/52; PULSE 96; RESP 16; TEMP 36.7; O2SAT 92; BMI 41.6
[2025-02-17 02:28] VITALS: BP 129/52; PULSE 96; RESP 16; TEMP 36.7; O2SAT 92
--- NOTE | 2025-02-17 02:41 | PC.NURSE ---
Pt lungs sound wheezy- O2 on 92 room air- no respiratory distress/ nonlabored breathing. pt is AXOX4. informed PA to order broncho protocal- pt was seen at bedside by provider.
[2025-02-17] MEDS: Albuterol Sulfate 2.5 MG, Albuterol/Iprat 2.5/0.5MG 3 ML 3 ML INHALE (02:50)
--- NOTE | 2025-02-17 03:54 | ED_ITS ---
HPI - Asthma General Chief Complaint: Asthma Stated Complaint: SOB Time Seen by Provider: 02/17/25 02:37 Source: patient Limitations: no limitations History of Present Illness ED Provider: Jaz Hurtado PA-C HPI Narrative: 30-year-old male with a history of morbid obesity, asthma, who presents with wheezing x2 days. Denies recent cough or cold symptoms or fevers. Related Data Previous Rx's ?Medication ?Instructions ?Recorded nebulizer and compressor #1 ea 09/15/21 nebulizers (Aeroneb Go Nebulizer) #1 ea 04/18/22 albuterol sulfate 2.5 mg/3 mL 2.5 mg (3 mL) inhalation Q4H PRN 09/07/24 (0.083 %) solution for nebulization Shortness Of Breat h/Wheezing #50 ea albuterol sulfate 90 mcg/actuation 1 inh inhalation QI D PRN shortness 09/07/24 aerosol inhaler of breath or wheezing #6.7 g dean doxycycline monohydrate 100 mg 100 mg PO BID #10 caps 09/07/24 capsule prednisone 20 mg tablet 40 mg (2 x 20 mg) PO DAILY # 10 tabs 09/07/24 prednisone 20 mg tablet 40 mg (2 x 20 mg) PO DAILY # 10 tabs 09/23/24 azithromycin 250 mg tablet See Rx Instructions PO .COM PLEX #6 09/28/24 tabs albuterol sulfate 90 mcg/actuation 2 puff inhalation Q 4-6H PRN 10/07/24 aerosol inhaler shortness of breath or wheez ing #8.5 grams fluticasone propionate 250 2 inh inhalation Q12H #60 e a 10/07/24 mcg/actuation blister powder for inhalation prednisone 50 mg tablet 50 mg PO DAILY #4 tabs 10/07 prednisone 20 mg tablet 40 mg (2 x 20 mg) PO DAILY # 8 tabs 10/23/24 albuterol sulfate 90 mcg/actuation 2 puff inhalation Q 4-6H PRN 10/30/24 aerosol inhaler shortness of breath or wheez ing #8.5 grams fluticasone 500 mcg-salmeterol 50 1 inh inhalation BID #60 ea 10/30/24 mcg/dose blistr powdr for inhalation (Advair Diskus) diphenhydramine HCl 25 mg capsule 50 mg (2 x 25 mg) PO TID PRN 11/06/24 (Benadryl) allergic reaction #20 caps epinephrine 0.3 mg/0.3 mL 0.3 mg (0.3 mL) IM Q10M PRN 11/06/24 injection, auto-injector (EpiPen anaphylaxis #2 ea 2-Arvind) prednisone 20 mg tablet 40 mg (2 x 20 mg) PO DAILY # 10 tabs 11/06/24 prednisone 10 mg tablet 10 mg PO DIRECTED #41 tab s 12/10/24 albuterol sulfate 90 mcg/actuation 2 puff inhalation Q 4-6H PRN 12/30/24 aerosol inhaler shortness of breath or wheez ing #8.5 grams prednisone 50 mg tablet 50 mg PO DAILY #4 tabs 12/30 albuterol sulfate 90 mcg/actuation 2 puff inhalation Q 4-6H PRN 01/15/25 aerosol inhaler shortness of breath or wheez ing #8.5 grams prednisone 50 mg tablet 50 mg PO DAILY #4 tabs 01/15 fluticasone 250 mcg-salmeterol 50 1 inh inhalation BID #60 ea 01/19/25 mcg/dose blistr powdr for inhalation prednisone 50 mg tablet 50 mg PO DAILY #4 tabs 02/10 albuterol sulfate 2.5 mg/3 mL 2.5 mg (3 mL) inhalation Q4-6H PRN 02/17/25 (0.083 %) solution for nebulization shortness of breat h or wheezing #75 mL Allergies Allergy/AdvReac Type Severity Reaction Status Date / Time shellfish derived Allergy Severe SHORTNESS Verified 02/17/25 02:27 OF BREATH, SWELLING shrimp Allergy Severe ANAPHYLAXIS Verified 02/17/25 02:27 Seasonal Allergies Allergy Shortness Verified 02/17/25 02:27 of Breath Review of Systems Review of Systems: Yes all other systems are reviewed and are negative Constitutional: Constitutional: Denies fatigue and Denies fever(s) Cardiovascular: Cardiovascular: Denies chest pain and Denies dyspnea Respiratory: Respiratory: Denies cough, Denies dyspnea and Reports wheezing Endocrine: Endocrine: Denies fatigue Allergic/Immunologic: Allergic/Immunologic: Reports wheezing PMFSH Past Medical History Attestation statement: The following information was validated with the patient. Medical History Asthma Pneumonia due to 2019 novel coronavirus Asthma Family History Family History Mother Asthma Social History Social History Household Members: None Housing: House Do you presently have visiting nurse or other home services: No Alcohol intake: never Patient Tobacco Use Status: Never used Tobacco Smoked in Last 30 Days: No Use of substances other than those prescribed or required for medical reasons: No Advance Directives: No Advance Directives Information Provided: No Do you have a plan to hurt others: No Plan service: No Current occupational status: unemployed Physical Exam Vital Signs: Vital Signs: Last Vital Signs Temp 98.1 F 02/17/25 02:28 Pulse 96 02/17/25 02:28 Resp 16 02/17/25 02:28 BP 129/52 L 02/17/25 02:28 Pulse Ox 92 02/17/25 02:28 O2 Del Method Room Air 02/17/25 02:28 BMI result Body Mass Index 41.6 Const: Other: Alert Orientation/consciousness: patient oriented x3 Resp: Other: Nonlabored respirations, speaking in full sentences, scattered expiratory wheezes posterior doan Cardio: Other: Normal peripheral perfusion Skin: Other: Warm dry no rash Neuro: General: patient oriented x3, gait normal, no focal motor deficits and CN's II-XI intact bilaterally Psych: Other: Cooperative Medications Administered Discontinued Medications Generic Name Dose Route Start Last Admin Trade Name Freq PRN Reason Stop Dose Admin Albuterol Sulfate 2.5 mg/ 0 mg 02/17/25 02:47 02/17/25 02:50 Albuterol/Ipratropium 3 ml INHALE 02/17/25 02:48 1 dose ONCE ONE Administration Prednisone 40 mg 02/17/25 02:37 02/17/25 02:45 Prednisone 20 Mg Tablet PO 02/17/25 02:38 Not Given ONCE ONE Medical Decision Making Medical Decision Making MDM Narrative: 30-year-old male with a history of morbid obesity, asthma, who presents with wheezing x2 days. Denies recent cough or cold symptoms or fevers. Problem: Asthma History: Per patient I have considered the following differential diagnoses: Asthma exacerbation, viral syndrome, seasonal allergies, bronchitis, pneumonia Plan: Patient is seen frequently in the ER secondary to his wheezing, he does not use his nebulizer treatment as instructed, he uses his rescue inhaler. He has no preceding viral syndrome. We will be ordering a breathing treatment, he has already completing a course of steroid. Discharge Plan Discharge Clinical Impression: Asthma Qualifiers: Asthma severity: unspecified severity Asthma persistence: unspecified Asthma complication type: unspecified Qualified Code(s): J45.909 - Unspecified asthma, uncomplicated Patient Disposition: Home, Self-Care Instructions: Asthma (ED) Additional Instructions: You are being treated for your asthma. You need to use your home nebulizer, not your rescue inhaler. You just completed a course of steroid. Keep your pending appointment with your arbitrator. Prescriptions: New albuterol sulfate 2.5 mg /3 mL (0.083 %) solution for nebulization 2.5 mg inhalation Q4-6H PRN (Reason: shortness of breath or wheezing) Qty: 75 0RF No Action (DME) nebulizer and compressor Device See Rx Instructions .Route Qty: 1 0RF Rx Instructions: As directed (DME) nebulizers [Aeroneb Go Nebulizer] Misc See Rx Instructions .Route Qty: 1 0RF Rx Instructions: As directed albuterol sulfate 2.5 mg /3 mL (0.083 %) Solution For Nebulization 2.5 mg inhalation Q4H PRN (Reason: Shortness Of Breath/Wheezing) Qty: 50 0RF doxycycline monohydrate 100 mg Capsule 100 mg PO BID Qty: 10 0RF prednisone 20 mg tablet 40 mg PO DAILY Qty: 10 0RF albuterol sulfate 90 mcg/actuation HFA aerosol inhaler 1 inh inhalation QID PRN (Reason: shortness of breath or wheezing) Qty: 6.7 0RF azithromycin 250 mg tablet See Rx Instructions .ROUTE .COMPLEX Qty: 6 0RF Rx Instructions: For 250 mg dose pack: take 500 mg today (day 1), then 250 mg for 4 days (days 2-5) albuterol sulfate 90 mcg/actuation HFA aerosol inhaler 2 puff inhalation Q4-6H PRN (Reason: shortness of breath or wheezing) Qty: 8.5 2RF prednisone 50 mg tablet 50 mg PO DAILY Qty: 4 0RF fluticasone propionate 250 mcg/actuation blister with device 2 inh inhalation Q12H Qty: 60 2RF prednisone 10 mg tablet 10 mg PO DIRECTED Qty: 41 0RF Rx Instructions: see taper instructions 60mg on day 1-5, 40mg on day 6, 30mg on day 7, 20mg on day 8, 10mg on day 9, 5mg on day 10 prednisone 50 mg tablet 50 mg PO DAILY Qty: 4 0RF prednisone 20 mg tablet 40 mg PO DAILY Qty: 10 0RF prednisone 20 mg tablet 40 mg PO DAILY Qty: 8 0RF fluticasone propion-salmeterol [Advair Diskus] 500-50 mcg/dose blister with device 1 inh inhalation BID Qty: 60 1RF albuterol sulfate 90 mcg/actuation HFA aerosol inhaler 2 puff inhalation Q4-6H PRN (Reason: shortness of breath or wheezing) Qty: 8.5 1RF epinephrine [EpiPen 2-Arvind] 0.3 mg/0.3 mL auto-injector 0.3 mg IM Q10M PRN (Reason: anaphylaxis) Qty: 2 0RF Rx Instructions: for 2 doses diphenhydramine HCl [Benadryl] 25 mg capsule 50 mg PO TID PRN (Reason: allergic reaction) Qty: 20 0RF prednisone 20 mg tablet 40 mg PO DAILY Qty: 10 0RF albuterol sulfate 90 mcg/actuation HFA aerosol inhaler 2 puff inhalation Q4-6H PRN (Reason: shortness of breath or wheezing) Qty: 8.5 3RF prednisone 50 mg tablet 50 mg PO DAILY Qty: 4 0RF albuterol sulfate 90 mcg/actuation HFA aerosol inhaler 2 puff inhalation Q4-6H PRN (Reason: shortness of breath or wheezing) Qty: 8.5 2RF prednisone 50 mg tablet 50 mg PO DAILY Qty: 4 0RF fluticasone propion-salmeterol 250-50 mcg/dose blister with device 1 inh inhalation BID Qty: 60 0RF Print Language: [place] Island[place]
[2025-02-17 04:13] VITALS: BP 122/52; PULSE 98; RESP 20; TEMP 37; O2SAT 96
== END 2025-02-17 04:14 | disposition home or self-care (01) ==
PROVIDERS: Emergency Provider Emergency Medicine
DX: J45.909 Unspecified asthma, uncomplicated (principal); R06.02 Shortness of breath
CPT/HCPCS: 99284

== ENCOUNTER 2025-02-24 22:17 | Emergency (ER) | payer OTHER, SELFPAY ==
[2025-02-24 22:31] VITALS: BP 133/96; PULSE 105; RESP 16; TEMP 36.4; O2SAT 95; BMI 43.6
--- NOTE | 2025-02-24 22:33 | ED_ITS ---
HPI - General Adult General Chief complaint: Asthma Stated complaint: asthma Time Seen by Provider: 02/24/25 23:48 Source: patient Mode of arrival: ambulatory Limitations: no limitations History of Present Illness ED Provider: Shonda Paul NP HPI narrative: Past medical history of asthma well-known to this emergency department who presents emergency department today for evaluation. He has been experiencing exacerbation/flare of his asthma since today. He has been using his albuterol rescue inhaler multiple times. Initial nursing triage states that he has been using his nebulizer with no relief. However he tells me that he in fact does not have a nebulizer machine at home he is lost it. He has an appointment tomorrow with pulmonology and a new primary care provider next week where he plans to ask for both of them to provide him with a nebulizer machine. He denies any fevers, chills, productive cough, chest pain, recent sick contacts. No dizziness or lightheadedness. No numbness or tingling of the extremities, recent lower extremity redness pain or swelling, history of VTE/malignancy. Related Data Previous Rx's ?Medication ?Instructions ?Recorded nebulizer and compressor #1 ea 09/15/21 nebulizers (Aeroneb Go Nebulizer) #1 ea 04/18/22 albuterol sulfate 2.5 mg/3 mL 2.5 mg (3 mL) inhalation Q4H PRN 09/07/24 (0.083 %) solution for nebulization Shortness Of Breat h/Wheezing #50 ea albuterol sulfate 90 mcg/actuation 1 inh inhalation QI D PRN shortness 09/07/24 aerosol inhaler of breath or wheezing #6.7 g dean doxycycline monohydrate 100 mg 100 mg PO BID #10 caps 09/07/24 capsule prednisone 20 mg tablet 40 mg (2 x 20 mg) PO DAILY # 10 tabs 09/07/24 prednisone 20 mg tablet 40 mg (2 x 20 mg) PO DAILY # 10 tabs 09/23/24 azithromycin 250 mg tablet See Rx Instructions PO .COM PLEX #6 09/28/24 tabs albuterol sulfate 90 mcg/actuation 2 puff inhalation Q 4-6H PRN 10/07/24 aerosol inhaler shortness of breath or wheez ing #8.5 grams fluticasone propionate 250 2 inh inhalation Q12H #60 e a 10/07/24 mcg/actuation blister powder for inhalation prednisone 50 mg tablet 50 mg PO DAILY #4 tabs 10/07 prednisone 20 mg tablet 40 mg (2 x 20 mg) PO DAILY # 8 tabs 10/23/24 albuterol sulfate 90 mcg/actuation 2 puff inhalation Q 4-6H PRN 10/30/24 aerosol inhaler shortness of breath or wheez ing #8.5 grams fluticasone 500 mcg-salmeterol 50 1 inh inhalation BID #60 ea 10/30/24 mcg/dose blistr powdr for inhalation (Advair Diskus) diphenhydramine HCl 25 mg capsule 50 mg (2 x 25 mg) PO TID PRN 11/06/24 (Benadryl) allergic reaction #20 caps epinephrine 0.3 mg/0.3 mL 0.3 mg (0.3 mL) IM Q10M PRN 11/06/24 injection, auto-injector (EpiPen anaphylaxis #2 ea 2-Arvind) prednisone 20 mg tablet 40 mg (2 x 20 mg) PO DAILY # 10 tabs 11/06/24 prednisone 10 mg tablet 10 mg PO DIRECTED #41 tab s 12/10/24 albuterol sulfate 90 mcg/actuation 2 puff inhalation Q 4-6H PRN 12/30/24 aerosol inhaler shortness of breath or wheez ing #8.5 grams prednisone 50 mg tablet 50 mg PO DAILY #4 tabs 12/30 albuterol sulfate 90 mcg/actuation 2 puff inhalation Q 4-6H PRN 01/15/25 aerosol inhaler shortness of breath or wheez ing #8.5 grams prednisone 50 mg tablet 50 mg PO DAILY #4 tabs 01/15 fluticasone 250 mcg-salmeterol 50 1 inh inhalation BID #60 ea 01/19/25 mcg/dose blistr powdr for inhalation prednisone 50 mg tablet 50 mg PO DAILY #4 tabs 02/10 albuterol sulfate 2.5 mg/3 mL 2.5 mg (3 mL) inhalation Q4-6H PRN 02/17/25 (0.083 %) solution for nebulization shortness of breat h or wheezing #75 mL prednisone 20 mg tablet 40 mg (2 x 20 mg) PO DAILY # 6 tabs 02/25/25 Allergies Allergy/AdvReac Type Severity Reaction Status Date / Time shellfish derived Allergy Severe SHORTNESS Verified 02/24/25 22:35 OF BREATH, SWELLING shrimp Allergy Severe ANAPHYLAXIS Verified 02/24/25 22:35 Seasonal Allergies Allergy Shortness Verified 02/24/25 22:35 of Breath Review of Systems Review of Systems: Yes all other systems are reviewed and are negative PMFSH Past Medical History Attestation statement: The following information was validated with the patient. Source: old records reviewed Medical History Asthma Pneumonia due to 2019 novel coronavirus Asthma Family History Family History Mother Asthma Social History Social History Household Members: None Housing: House Do you presently have visiting nurse or other home services: No Unable to assess alcohol history related to: Unknown Alcohol intake: never Patient Tobacco Use Status: Never used Tobacco Use of substances other than those prescribed or required for medical reasons: Unknown Advance Directives: No Advance Directives Information Provided: No Do you have a plan to hurt others: No Plan service: No Current occupational status: unemployed Physical Exam ED Vital Signs: Vital Signs - 24 hr 02/24/25 22:31 02/24/25 22:52 02/25/25 00:27 Temperature 97.5 F 98.1 F Pulse Rate 105 H 101 H 105 H Respiratory Rate 16 21 H 16 Blood Pressure 133/96 H 148/67 H Pulse Oximetry 95 95 Oxygen Delivery Method Room Air Room Air BMI result Body Mass Index 43.6 Appearance: Alert.?Oriented to person, place and time. No acute distress.?Normal affect. Eyes: Pupils equal, round and reactive to light.? ENT: Pharynx normal.?? Neck: Normal inspection.? Neck supple.?? CVS: Heart sounds normal. Normal heart rate and rhythm.? Pulses normal.?? Respiratory: No respiratory distress.? Lung sounds with expiratory wheezing bilaterally Abdomen: Soft and non-tender. Normoactive bowel sounds. ?? Skin: Skin warm and dry.? Normal skin color.? ? Extremities: No lower extremity edema.? No calf ttp? Neuro: Moves all extremities spontaneously. Sensation intact bilaterally. Ambulates with normal steady gait. Course Course Course Narrative: Medical screening exam performed. Please refer to detailed history, exam, evaluation, and management by primary provider. 30-year-old male with a history of asthma, worsening shortness of breath despite treatments at home today. Protocol ordered. Medications Administered Discontinued Medications Generic Name Dose Route Start Last Admin Trade Name Darius PRN Reason Stop Dose Admin Albuterol Sulfate 2.5 mg 02/24/25 22:47 02/24/25 22:50 Albuterol Sulfate (0.083%) 2.5 Mg/3 Ml Vial.Neb INHALE 02/24/25 22:48 2.5 mg ONCE ONE Administration Medical Decision Making Medical Decision Making MDM Narrative: Patient is a 30-year-old male past medical history of obesity, asthma, well- known to the emergency department, with multiple recent visits for his asthma. This would be his 3rd time being seen in the past 2 weeks seen in ED 02/10/2025 extremity was given a 5 day course of prednisone, in addition to 02/17/2025 she received a DuoNeb and prednisone while in the emergency department sent home with nebulizer solution. He received an albuterol nebulized treatment in the em ergency department and expresses significant improvement in his symptoms. He is 95% on room air, had an ambulatory O2 trial where he remain 95% on room air. He is requesting discharge home which I feel is reasonable at this time. Feels quite strongly this time from short course of steroids. 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 Given strict return precautions. All questions answered. No recent URI symptoms or lower suspicion for pneumonia, patient declining chest x-ray. Declining viral serologies. Differential Diagnosis Differential Diagnoses: The differential diagnosis associated with the presentation includes (See narrative above) Admission/Observation Consideration of admission/observation: Escalation of care including admission/observation considered External Record Review External record reviewed: Outpatient record Tests considered The following testing was considered but not selected: See narrative above Prescription Management I considered prescription management with: Other (See above) Discharge Plan Discharge Clinical Impression: Asthma Qualifiers: Asthma severity: unspecified severity Asthma persistence: unspecified Asthma complication type: unspecified Qualified Code(s): J45.909 - Unspecified asthma, uncomplicated Patient Disposition: Home, Self-Care Instructions: Asthma (ED) Additional Instructions: It is important that you follow-up with your tailing machine operator as scheduled tomorrow as well as your new primary care doctor for next week. Please discussed with them that you need a prescription for a nebulizer machine as you will benefit greatly from this, discuss with them alternative treatment to gain better control of your asthma. You received a dose of prednisone while in the emergency department, I am sending a short course of prednisone to the pharmacy. Take a daily with food to prevent stomach upset. Return back to emergency department any new or worsening symptoms or concerns. Prescriptions: New prednisone 20 mg tablet 40 mg PO DAILY Qty: 6 0RF No Action (DME) nebulizer and compressor Device See Rx Instructions .Route Qty: 1 0RF Rx Instructions: As directed (DME) nebulizers [Aeroneb Go Nebulizer] Misc See Rx Instructions .Route Qty: 1 0RF Rx Instructions: As directed albuterol sulfate 2.5 mg /3 mL (0.083 %) Solution For Nebulization 2.5 mg inhalation Q4H PRN (Reason: Shortness Of Breath/Wheezing) Qty: 50 0RF doxycycline monohydrate 100 mg Capsule 100 mg PO BID Qty: 10 0RF prednisone 20 mg tablet 40 mg PO DAILY Qty: 10 0RF albuterol sulfate 90 mcg/actuation HFA aerosol inhaler 1 inh inhalation QID PRN (Reason: shortness of breath or wheezing) Qty: 6.7 0RF azithromycin 250 mg tablet See Rx Instructions .ROUTE .COMPLEX Qty: 6 0RF Rx Instructions: For 250 mg dose pack: take 500 mg today (day 1), then 250 mg for 4 days (days 2-5) albuterol sulfate 90 mcg/actuation HFA aerosol inhaler 2 puff inhalation Q4-6H PRN (Reason: shortness of breath or wheezing) Qty: 8.5 2RF prednisone 50 mg tablet 50 mg PO DAILY Qty: 4 0RF fluticasone propionate 250 mcg/actuation blister with device 2 inh inhalation Q12H Qty: 60 2RF prednisone 10 mg tablet 10 mg PO DIRECTED Qty: 41 0RF Rx Instructions: see taper instructions 60mg on day 1-5, 40mg on day 6, 30mg on day 7, 20mg on day 8, 10mg on day 9, 5mg on day 10 prednisone 50 mg tablet 50 mg PO DAILY Qty: 4 0RF albuterol sulfate 2.5 mg /3 mL (0.083 %) solution for nebulization 2.5 mg inhalation Q4-6H PRN (Reason: shortness of breath or wheezing) Qty: 75 0RF prednisone 20 mg tablet 40 mg PO DAILY Qty: 10 0RF prednisone 20 mg tablet 40 mg PO DAILY Qty: 8 0RF fluticasone propion-salmeterol [Advair Diskus] 500-50 mcg/dose blister with device 1 inh inhalation BID Qty: 60 1RF albuterol sulfate 90 mcg/actuation HFA aerosol inhaler 2 puff inhalation Q4-6H PRN (Reason: shortness of breath or wheezing) Qty: 8.5 1RF epinephrine [EpiPen 2-Arvind] 0.3 mg/0.3 mL auto-injector 0.3 mg IM Q10M PRN (Reason: anaphylaxis) Qty: 2 0RF Rx Instructions: for 2 doses diphenhydramine HCl [Benadryl] 25 mg capsule 50 mg PO TID PRN (Reason: allergic reaction) Qty: 20 0RF prednisone 20 mg tablet 40 mg PO DAILY Qty: 10 0RF albuterol sulfate 90 mcg/actuation HFA aerosol inhaler 2 puff inhalation Q4-6H PRN (Reason: shortness of breath or wheezing) Qty: 8.5 3RF prednisone 50 mg tablet 50 mg PO DAILY Qty: 4 0RF albuterol sulfate 90 mcg/actuation HFA aerosol inhaler 2 puff inhalation Q4-6H PRN (Reason: shortness of breath or wheezing) Qty: 8.5 2RF prednisone 50 mg tablet 50 mg PO DAILY Qty: 4 0RF fluticasone propion-salmeterol 250-50 mcg/dose blister with device 1 inh inhalation BID Qty: 60 0RF Print Language: Greenlandic
[2025-02-24] MEDS: Albuterol Sulfate (0.083%) 2.5 MG/3 ML VIAL.NEB INHALE (22:50)
[2025-02-24 22:52] VITALS: PULSE 101; RESP 21; O2SAT 94
--- NOTE | 2025-02-25 00:26 | PC.NURSE ---
Ambulation trial pt maintained 95-96% on RA.
[2025-02-25 00:27] VITALS: BP 148/67; PULSE 105; RESP 16; TEMP 36.7; O2SAT 95
[2025-02-25 00:48] VITALS: BP 148/67; PULSE 105; RESP 16; TEMP 36.7; O2SAT 95
== END 2025-02-25 00:48 | disposition home or self-care (01) ==
PROVIDERS: Emergency Provider Emergency Medicine
DX: J45.909 Unspecified asthma, uncomplicated (principal)
CPT/HCPCS: 94640; 99284

== ENCOUNTER 2025-02-25 04:30 | Emergency (ER) | payer OTHER, SELFPAY ==
--- NOTE | ~2025-02-25 | XR_ITS ---
CLINICAL HISTORY: dyspnea, cough 1 view chest Comparison: CR - XR CHEST 1V - 12/30/24 04:47 EDT Findings: Cardiac and mediastinal contours are normal. Mild interstitial prominence with scattered peribronchial thickening. No focal consolidation. No effusion. No pneumothorax. No acute osseous finding. Impression: Mild interstitial prominence with scattered peribronchial thickening. No focal consolidation. This document has been electronically signed by: Jarad Segundo MD on 02/25/2025 07:42:00
[2025-02-25 04:35] VITALS: BP 127/80; PULSE 98; RESP 20; TEMP 36.7; O2SAT 94; BMI 38.3
[2025-02-25] MEDS: Albuterol/Iprat 2.5/0.5MG 3 ML AMPUL.NEB INHALE ×2 (06:31→08:37)
[2025-02-25 06:33] VITALS: PULSE 94; RESP 21; O2SAT 95
[2025-02-25] MEDS: Magnesium Sulfate/H2O 2 GM/50 ML PIGGYBACK IV (06:35)
[2025-02-25] MEDS: Lactated Ringers 1,000 ML 999 ML IV (06:36)
[2025-02-25 07:20] VITALS: BP 118/66; PULSE 91; RESP 18; TEMP 36.6; O2SAT 96
[2025-02-25 08:09] LABS: Resp Syncy Virus RNA Qual PCR NEGATIVE (Negative); SARS COV2 PCR INHOUSE NEGATIVE (Negative)
--- NOTE | 2025-02-25 08:35 | ED.ASTHMA ---
HPI - Asthma General Chief Complaint: Asthma Stated Complaint: Asthma Time Seen by Provider: 02/25/25 07:10 Source: patient Mode of arrival: ambulatory Limitations: no limitations History of Present Illness ED Provider: Dr. Keyla Olmstead HPI Narrative: 30-year-old male with history of severe persistent asthma with frequent emergency department visits presenting for the 2nd time today with difficulty breathing and wheezing. Admits that he was diagnosed with an asthma exacerbation, given a dose of steroids here but did not receive any medications for home. Got home and began to feel progressively worse throughout the evening. Now feels like he can not catch his breath even with the use of his inhalers. No reported fever. Cough is nonproductive but continuous. No lower extremity edema or pain. Denies chest pain. No nausea or vomiting. No known sick contacts or travel. Related Data Previous Rx's ?Medication ?Instructions ?Recorded nebulizer and compressor #1 ea 09/15/21 nebulizers (Aeroneb Go Nebulizer) #1 ea 04/18/22 albuterol sulfate 2.5 mg/3 mL 2.5 mg (3 mL) inhalation Q4H PRN 09/07/24 (0.083 %) solution for nebulization Shortness Of Breath/Wheezing #50 ea albuterol sulfate 90 mcg/actuation 1 inh inhalation QID PRN shortness 09/07/24 aerosol inhaler of breath or wheezing #6.7 grams doxycycline monohydrate 100 mg 100 mg PO BID #10 caps 09/07/24 capsule prednisone 20 mg tablet 40 mg (2 x 20 mg) PO DAILY #10 tabs 09/07/24 prednisone 20 mg tablet 40 mg (2 x 20 mg) PO DAILY #10 tabs 09/23/24 azithromycin 250 mg tablet See Rx Instructions PO .COMPLEX #6 09/28/24 tabs albuterol sulfate 90 mcg/actuation 2 puff inhalation Q4-6H PRN 10/07/24 aerosol inhaler shortness of breath or wheezing #8.5 grams fluticasone propionate 250 2 inh inhalation Q12H #60 ea 10/07/24 mcg/actuation blister powder for inhalation prednisone 50 mg tablet 50 mg PO DAILY #4 tabs 10/07/24 prednisone 20 mg tablet 40 mg (2 x 20 mg) PO DAILY #8 tabs 10/23/24 albuterol sulfate 90 mcg/actuation 2 puff inhalation Q4-6H PRN 10/30/24 aerosol inhaler shortness of breath or wheezing #8.5 grams fluticasone 500 mcg-salmeterol 50 1 inh inhalation BID #60 ea 10/30/24 mcg/dose blistr powdr for inhalation (Advair Diskus) diphenhydramine HCl 25 mg capsule 50 mg (2 x 25 mg) PO TID PRN 11/06/24 (Benadryl) allergic reaction #20 caps epinephrine 0.3 mg/0.3 mL 0.3 mg (0.3 mL) IM Q10M PRN 11/06/24 injection, auto-injector (EpiPen anaphylaxis #2 ea 2-Arvind) prednisone 20 mg tablet 40 mg (2 x 20 mg) PO DAILY #10 tabs 11/06/24 prednisone 10 mg tablet 10 mg PO DIRECTED #41 tabs 12/10/24 albuterol sulfate 90 mcg/actuation 2 puff inhalation Q4-6H PRN 12/30/24 aerosol inhaler shortness of breath or wheezing #8.5 grams prednisone 50 mg tablet 50 mg PO DAILY #4 tabs 12/30/24 albuterol sulfate 90 mcg/actuation 2 puff inhalation Q4-6H PRN 01/15/25 aerosol inhaler shortness of breath or wheezing #8.5 grams prednisone 50 mg tablet 50 mg PO DAILY #4 tabs 01/15/25 fluticasone 250 mcg-salmeterol 50 1 inh inhalation BID #60 ea 01/19/25 mcg/dose blistr powdr for inhalation prednisone 50 mg tablet 50 mg PO DAILY #4 tabs 02/10/25 albuterol sulfate 2.5 mg/3 mL 2.5 mg (3 mL) inhalation Q4-6H PRN 02/17/25 (0.083 %) solution for nebulization shortness of breath or wheezing #75 mL fluticasone 500 mcg-salmeterol 50 1 inh inhalation BID #60 ea 02/25/25 mcg/dose blistr powdr for inhalation (Advair Diskus) prednisone 20 mg tablet 20 mg PO DAILY #12 tabs 02/25/25 prednisone 20 mg tablet 40 mg (2 x 20 mg) PO DAILY #6 tabs 02/25/25 Allergies Allergy/AdvReac Type Severity Reaction Status Date / Time shellfish derived Allergy Severe SHORTNESS Verified 02/25/25 04:36 OF BREATH, SWELLING shrimp Allergy Severe ANAPHYLAXIS Verified 02/25/25 04:36 Seasonal Allergies Allergy Shortness Verified 02/25/25 04:36 of Breath Review of Systems Review of Systems: Yes all other systems are reviewed and are negative (As per HPI) [facility] Past Medical History [facility] Narrative: Asthma Medical History Asthma Pneumonia due to 2019 novel coronavirus Asthma Family History Family History Mother Asthma Social History Social History Household Members: None Housing: House Do you presently have visiting nurse or other home services: No Unable to assess alcohol history related to: Unknown Alcohol intake: never Patient Tobacco Use Status: Never used Tobacco service: No Current occupational status: unemployed Physical Exam Vital Signs: Vital Signs: Last Vital Signs Temp 98.4 F 02/25/25 10:31 Pulse 106 H 02/25/25 10:31 Resp 16 02/25/25 10:31 BP 122/68 02/25/25 10:31 Pulse Ox 95 02/25/25 10:31 O2 Del Method Room Air 02/25/25 10:31 BMI result Body Mass Index 38.3 GENERAL: Ill-appearing, moderate respiratory distress. SKIN: Normal skin color for ethnicity, warm, dry, no rashes noted. HEENT: Normocephalic, atraumatic, no stridor, EOMI. NECK: Soft, supple, full ROM, midline structures nontender, no step-offs, no deformities, no lymphadenopathy. CHEST: Heart regular tachycardia, symmetric chest rise and fall. PULMONARY: Diffuse wheezes throughout, tachypnea, poor air movement bilaterally, moderate respiratory distress. ABDOMINAL: Soft, nontender, quiet bowel sounds in all quadrants. : Deferred. MUSCULOSKELETAL: Normal tone, full range of motion, no deformities, no peripheral edema. NEURO: Alert and oriented to person, CN II through XII intact, no focal neurologic deficits. PSYCHIATRIC: Anxious affect, appropriate demeanor. Course Course Course Narrative: Artemio Bright, 02/25/2025 @ 11:00AM: The patient was signed out to me at change of shift by the previous emergency physician. The patient had been seen in the emergency room just few hours prior for asthma. The patient was treated and released. The patient returned complaining of the same symptoms. The patient was treated with IV methylprednisolone, magnesium, and bronchodilator treatments. He has a checked J that is unremarkable. Viral swab is negative. At the time that I saw the patient he was satting reasonably well on room air. He was given an additional bronchodilator treatment. He was observed. He remained stable. He has an outpatient pulmonology appointment this afternoon. He has requested a prescription to refill his Advair Diskus. I will send a prescription. I will also prescribe 5 days of prednisone. He will be discharged to follow up with the pulmonology office this afternoon. Medications Administered Discontinued Medications Generic Name Dose Route Start Last Admin Trade Name Freq PRN Reason Stop Dose Admin Albuterol/Ipratropium 3 ml 02/25/25 06:29 02/25/25 06:31 Albuterol/Iprat 2.5/0.5mg 3 Ml Ampul.Neb INHALE 02/25/25 06:30 3 ml ONCE ONE Administration Albuterol/Ipratropium 3 ml 02/25/25 08:35 02/25/25 08:37 Albuterol/Iprat 2.5/0.5mg 3 Ml Ampul.Neb INHALE 02/25/25 08:36 3 ml ONCE ONE Administration Magnesium Sulfate 2 gm in 50 mls @ 150 mls/hr 02/25/25 06:22 02/25/25 06:55 Magnesium Sulfate/H2o IV 02/25/25 06:41 Infused ONCE ONE Infusion Lactated Ringer's 1,000 mls @ 999 mls/hr 02/25/25 06:22 02/25/25 08:33 Lr IV 02/25/25 07:22 Infused .Q1H1M ONE Infusion Methylprednisolone Sodium Succinate 125 mg 02/25/25 06:22 02/25/25 06:35 Methylprednisolone Sod Succ 125 Mg/2 Ml Vial IVPUSH 02/25/25 06:23 125 mg ONCE ONE Administration Medical Decision Making Medical Decision Making [facility] Narrative: Patient presents today with chief complaint of shortness of breath. Differential diagnosis includes, but is not limited to, upper respiratory infection, pneumonia, COPD exacerbation, asthma exacerbation, CHF, pneumothorax, pleural effusion, pulmonary embolism, ACS. Appropriate will be initiated to evaluate for etiology of patient's symptoms. 8:00 a.m. signed out to oncoming provider pending medication effect and final disposition. Patient feeling improved after a DuoNeb. He is sleeping. Medicated with Solu-Medrol and magnesium as well. Differential Diagnosis Differential Diagnoses: The differential diagnosis associated with the presentation includes (As above) Admission/Observation Consideration of admission/observation: Escalation of care including admission/observation considered Lab Data MDM Lab Attestation statement: I reviewed the patient's lab results. Labs: Lab Results 02/25/25 Range/Units 07:03 Influenza Type A (PCR) NEGATIVE (Negative) Influenza Type B (PCR) NEGATIVE (Negative) RSV RNA Qual (PCR) NEGATIVE (Negative) SARS-CoV-2 RNA (RT-PCR) NEGATIVE (Negative) Discharge Plan Discharge Clinical Impression: Asthma exacerbation, Acute asthmatic bronchitis Patient Disposition: Home, Self-Care Additional Instructions: I have sent a prescription for prednisone to your pharmacy. Please take this daily as prescribed. I have also sent a prescription for an Advair Diskus. Use this was recommended. Please keep your appointment with the pulmonology office this afternoon as scheduled and have further discussions about your asthma management. Return to the emergency room if significantly worse. Prescriptions: New fluticasone propion-salmeterol [Advair Diskus] 500-50 mcg/dose blister with device 1 inh inhalation BID Qty: 60 0RF prednisone 20 mg tablet 20 mg PO DAILY Qty: 12 0RF Rx Instructions: Take 3 tablets by mouth daily for 2 days then take 2 tablets by mouth daily for 3 days. No Action (DME) nebulizer and compressor Device See Rx Instructions .Route Qty: 1 0RF Rx Instructions: As directed (DME) nebulizers [Aeroneb Go Nebulizer] [facility] See Rx Instructions .Route Qty: 1 0RF Rx Instructions: As directed albuterol sulfate 2.5 mg /3 mL (0.083 %) Solution For Nebulization 2.5 mg inhalation Q4H PRN (Reason: Shortness Of Breath/Wheezing) Qty: 50 0RF doxycycline monohydrate 100 mg Capsule 100 mg PO BID Qty: 10 0RF prednisone 20 mg tablet 40 mg PO DAILY Qty: 10 0RF albuterol sulfate 90 mcg/actuation HFA aerosol inhaler 1 inh inhalation QID PRN (Reason: shortness of breath or wheezing) Qty: 6.7 0RF azithromycin 250 mg tablet See Rx Instructions .ROUTE .COMPLEX Qty: 6 0RF Rx Instructions: For 250 mg dose pack: take 500 mg today (day 1), then 250 mg for 4 days (days 2-5) albuterol sulfate 90 mcg/actuation HFA aerosol inhaler 2 puff inhalation Q4-6H PRN (Reason: shortness of breath or wheezing) Qty: 8.5 2RF prednisone 50 mg tablet 50 mg PO DAILY Qty: 4 0RF fluticasone propionate 250 mcg/actuation blister with device 2 inh inhalation Q12H Qty: 60 2RF prednisone 10 mg tablet 10 mg PO DIRECTED Qty: 41 0RF Rx Instructions: see taper instructions 60mg on day 1-5, 40mg on day 6, 30mg on day 7, 20mg on day 8, 10mg on day 9, 5mg on day 10 prednisone 50 mg tablet 50 mg PO DAILY Qty: 4 0RF albuterol sulfate 2.5 mg /3 mL (0.083 %) solution for nebulization 2.5 mg inhalation Q4-6H PRN (Reason: shortness of breath or wheezing) Qty: 75 0RF prednisone 20 mg tablet 40 mg PO DAILY Qty: 10 0RF prednisone 20 mg tablet 40 mg PO DAILY Qty: 8 0RF fluticasone propion-salmeterol [Advair Diskus] 500-50 mcg/dose blister with device 1 inh inhalation BID Qty: 60 1RF albuterol sulfate 90 mcg/actuation HFA aerosol inhaler 2 puff inhalation Q4-6H PRN (Reason: shortness of breath or wheezing) Qty: 8.5 1RF epinephrine [EpiPen 2-Arvind] 0.3 mg/0.3 mL auto-injector 0.3 mg IM Q10M PRN (Reason: anaphylaxis) Qty: 2 0RF Rx Instructions: for 2 doses diphenhydramine HCl [Benadryl] 25 mg capsule 50 mg PO TID PRN (Reason: allergic reaction) Qty: 20 0RF prednisone 20 mg tablet 40 mg PO DAILY Qty: 10 0RF albuterol sulfate 90 mcg/actuation HFA aerosol inhaler 2 puff inhalation Q4-6H PRN (Reason: shortness of breath or wheezing) Qty: 8.5 3RF prednisone 50 mg tablet 50 mg PO DAILY Qty: 4 0RF albuterol sulfate 90 mcg/actuation HFA aerosol inhaler 2 puff inhalation Q4-6H PRN (Reason: shortness of breath or wheezing) Qty: 8.5 2RF prednisone 50 mg tablet 50 mg PO DAILY Qty: 4 0RF fluticasone propion-salmeterol 250-50 mcg/dose blister with device 1 inh inhalation BID Qty: 60 0RF prednisone 20 mg tablet 40 mg PO DAILY Qty: 6 0RF Interventions: ED Discharge Assessment Last Done: 02/25/25 10:31 Discharge Date/Time: 02/25/25 10:36 Print Language: Maldivian
--- NOTE | 2025-02-25 08:35 | PC.NURSE ---
patient receiving 2nd breathing tx via RT at this time. tolerating well.
[2025-02-25 08:36] VITALS: PULSE 91; RESP 18; O2SAT 94
[2025-02-25 10:25] VITALS: BP 122/68; PULSE 106; RESP 16; TEMP 36.9; O2SAT 95
[2025-02-25 10:31] VITALS: BP 122/68; PULSE 106; RESP 16; TEMP 36.9; O2SAT 95
== END 2025-02-25 10:36 | disposition home or self-care (01) ==
PROVIDERS: Emergency Medicine; Emergency Provider Emergency Medicine
DX: J20.9 Acute bronchitis, unspecified (principal); J45.901 Unspecified asthma with (acute) exacerbation; R06.02 Shortness of breath; R05.9 Cough, unspecified; Z03.818 Encounter for observation for suspected exposure to other biological agents ruled out; Z79.899 Other long term (current) drug therapy
CPT/HCPCS: 71045; 87637; 94640; 96361; 96365; 96375; 99284; 99285; J2919; J3475; J7120

== ENCOUNTER → 2025-02-25 06:26 | Outpatient (BNV) | payer OTHER, SELFPAY | PROVIDERS: Emergency Provider Emergency Medicine; Visit Provider Radiology Vascular & Interventional Radiology | DX: R06.00 Dyspnea, unspecified (principal); R05.9 Cough, unspecified | CPT/HCPCS: 71045 ==

== ENCOUNTER 2025-04-18 00:30 | Emergency (ER) | payer OTHER, SELFPAY ==
[2025-04-18 00:37] VITALS: BP 136/86; PULSE 100; RESP 21; TEMP 36.5; O2SAT 93; BMI 44.0
[2025-04-18 00:53] VITALS: BP 146/93; PULSE 96; RESP 22; TEMP 36.6; O2SAT 94
[2025-04-18] MEDS: Magnesium Sulfate/H2O 2 GM/50 ML PIGGYBACK IV (01:02)
[2025-04-18 01:15] VITALS: PULSE 92; RESP 20; O2SAT 93
[2025-04-18] MEDS: Albuterol/Iprat 2.5/0.5MG 3 ML AMPUL.NEB INHALE (01:15)
--- NOTE | 2025-04-18 01:30 | ED_ITS ---
HPI - Asthma General Chief Complaint: Asthma Stated Complaint: SOB Time Seen by Provider: 04/18/25 00:40 Source: patient and old records reviewed Mode of arrival: ambulatory Limitations: no limitations History of Present Illness ED Provider: IMANI NORMAN Narrative: 30 yo male with chronic longstanding asthma with frequent exacerbations. He reports dyspnea and wheezing for 4 hours no chest pain, fevers, sputum production. He states this is typical for him he has no known sick contacts. Took 3 neb treatments but no relief. MD complaint: asthma attack , shortness of breath and wheezing Onset (ago): hour(s) (3) Severity: moderate Context: none known Associated symptoms: dry cough Asthma History: childhood onset Treatments Prior to Arrival: inhaled bronchodilator Related Data Previous Rx's ?Medication ?Instructions ?Recorded nebulizer and compressor #1 ea 09/15/21 nebulizers (Aeroneb Go Nebulizer) #1 ea 04/18/22 albuterol sulfate 2.5 mg/3 mL 2.5 mg (3 mL) inhalation Q4H PRN 09/07/24 (0.083 %) solution for nebulization Shortness Of Breat h/Wheezing #50 ea albuterol sulfate 90 mcg/actuation 1 inh inhalation QI D PRN shortness 09/07/24 aerosol inhaler of breath or wheezing #6.7 g dean doxycycline monohydrate 100 mg 100 mg PO BID #10 caps 09/07/24 capsule prednisone 20 mg tablet 40 mg (2 x 20 mg) PO DAILY # 10 tabs 09/07/24 prednisone 20 mg tablet 40 mg (2 x 20 mg) PO DAILY # 10 tabs 09/23/24 azithromycin 250 mg tablet See Rx Instructions PO .COM PLEX #6 09/28/24 tabs albuterol sulfate 90 mcg/actuation 2 puff inhalation Q 4-6H PRN 10/07/24 aerosol inhaler shortness of breath or wheez ing #8.5 grams fluticasone propionate 250 2 inh inhalation Q12H #60 e a 10/07/24 mcg/actuation blister powder for inhalation prednisone 50 mg tablet 50 mg PO DAILY #4 tabs 10/07 prednisone 20 mg tablet 40 mg (2 x 20 mg) PO DAILY # 8 tabs 10/23/24 albuterol sulfate 90 mcg/actuation 2 puff inhalation Q 4-6H PRN 10/30/24 aerosol inhaler shortness of breath or wheez ing #8.5 grams fluticasone 500 mcg-salmeterol 50 1 inh inhalation BID #60 ea 10/30/24 mcg/dose blistr powdr for inhalation (Advair Diskus) diphenhydramine HCl 25 mg capsule 50 mg (2 x 25 mg) PO TID PRN 11/06/24 (Benadryl) allergic reaction #20 caps epinephrine 0.3 mg/0.3 mL 0.3 mg (0.3 mL) IM Q10M PRN 11/06/24 injection, auto-injector (EpiPen anaphylaxis #2 ea 2-Arvind) prednisone 20 mg tablet 40 mg (2 x 20 mg) PO DAILY # 10 tabs 11/06/24 prednisone 10 mg tablet 10 mg PO DIRECTED #41 tab s 12/10/24 albuterol sulfate 90 mcg/actuation 2 puff inhalation Q 4-6H PRN 12/30/24 aerosol inhaler shortness of breath or wheez ing #8.5 grams prednisone 50 mg tablet 50 mg PO DAILY #4 tabs 12/30 albuterol sulfate 90 mcg/actuation 2 puff inhalation Q 4-6H PRN 01/15/25 aerosol inhaler shortness of breath or wheez ing #8.5 grams prednisone 50 mg tablet 50 mg PO DAILY #4 tabs 01/15 fluticasone 250 mcg-salmeterol 50 1 inh inhalation BID #60 ea 01/19/25 mcg/dose blistr powdr for inhalation prednisone 50 mg tablet 50 mg PO DAILY #4 tabs 02/10 albuterol sulfate 2.5 mg/3 mL 2.5 mg (3 mL) inhalation Q4-6H PRN 02/17/25 (0.083 %) solution for nebulization shortness of breat h or wheezing #75 mL fluticasone 500 mcg-salmeterol 50 1 inh inhalation BID #60 ea 02/25/25 mcg/dose blistr powdr for inhalation (Advair Diskus) prednisone 20 mg tablet 20 mg PO DAILY #12 tabs 02/11 01/05 prednisone 20 mg tablet 40 mg (2 x 20 mg) PO DAILY # 6 tabs 02/25/25 prednisone 10 mg tablet See Taper PO DAILY #30 tabs 04/18/25 Allergies Allergy/AdvReac Type Severity Reaction Status Date / Time shellfish derived Allergy Severe SHORTNESS Verified 04/18/25 00:39 OF BREATH, SWELLING shrimp Allergy Severe ANAPHYLAXIS Verified 04/18/25 00:39 Seasonal Allergies Allergy Shortness Verified 04/18/25 00:39 of Breath Review of Systems Review of Systems: Constitutional : No Fever, No Chills ENT/Mouth : No Hoarseness, No sore throat, No Rhinorrhea Eyes: No Redness, No Discharge, No Vision Changes Cardiovascular : No Chest Pain, positive SOB, positive Dyspnea on Exertion, No Edema Respiratory : positive Cough, No Sputum, positive Wheezing, Gastrointestinal : No Nausea, No Vomiting, No Diarrhea, No abdominal Pain Genitourinary : No Dysuria, No Hematuria Musculoskeletal : No joint pain, No Myalgias Skin : No rash Neuro : No Weakness, No Numbness, No Headache All other systems reviewed and are negative FOR[facility]LY [facility] Past Medical History Attestation statement: The following information was validated with the patient. Source: old records reviewed Medical History Asthma Pneumonia due to 2019 novel coronavirus Asthma Family History Family History Mother Asthma Social History Social History Household Members: None Housing: House Do you presently have visiting nurse or other home services: No Unable to assess alcohol history related to: Unknown Alcohol intake: never Patient Tobacco Use Status: Never used Tobacco Smoked in Last 30 Days: No Use of substances other than those prescribed or required for medical reasons: No Advance Directives: No Do you have a plan to hurt others: No Plan service: No Current occupational status: unemployed Physical Exam Vital Signs: Vital Signs: Last Vital Signs Temp 97.9 F 04/18/25 00:53 Pulse 92 04/18/25 01:15 Resp 20 04/18/25 01:15 BP 146/93 H 04/18/25 00:53 Pulse Ox 94 04/18/25 00:53 O2 Del Method Room Air 04/18/25 00:53 BMI result Body Mass Index 44.0 Appearance: Alert. Oriented X3. No acute distress. Eyes: Pupils equal, round and reactive to light. ENT: Pharynx normal. Neck: Normal inspection. Neck supple. CVS: tachycardicl heart rate and rhythm. Pulses normal. Respiratory: No respiratory distress. Breath sounds diffuse insp and exp wheezes Abdomen: Soft and nontender. Skin: Skin warm and dry. Normal skin color. Normal skin turgor. Extremities: No lower extremity edema. No calf ttp Neuro: Oriented X 3. No motor deficit. No sensory deficit. CN2-12 intact Medications Administered Discontinued Medications Generic Name Dose Route Start Last Admin Trade Name Darius PRN Reason Stop Dose Admin Albuterol/Ipratropium 3 ml 04/18/25 01:11 04/18/25 01:15 Albuterol/Iprat 2.5/0.5mg 3 Ml Ampul.Neb INHALE 04/18/25 01:12 3 ml ONCE ONE Administration Magnesium Sulfate 2 gm in 50 mls @ 150 mls/hr 04/18/25 00:44 04/18/25 01:29 Magnesium Sulfate/H2o IV 04/18/25 01:03 Infused ONCE ONE Infusion Methylprednisolone Sodium Succinate 60 mg 04/18/25 00:44 04/18/25 01:01 Methylprednisolone Sod Succ 125 Mg/2 Ml Vial IVPUSH 04/18/25 00:45 60 mg ONCE ONE Administration Medical Decision Making Medical Decision Making MDM Narrative: 30 yo male with PMH of asthma who presents with c/o asthma and wheezing x 3 hours no response to home nebs. He has been here several times for this he has no infectious symptoms. Will give neb and start on IV steroids/magnesium. Will monitor and reassess. He is overall at baseline and not toxic. He is not labored. Anticipate DC when improved. Patient feels better, wheezing is minimal. Patient states that he does not want to stay in the hospital, would like to be discharged home. Patient states that he has all of his inhalers at home, does not have prednisone. Oxygen saturation 94% on room air and with ambulation. No oxygen desaturation. Differential Diagnosis Differential Diagnoses: The differential diagnosis associated with the presentation includes asthma Admission/Observation Consideration of admission/observation: Escalation of care including admission/observation considered will observe for clinical improvement patient generally gets IV meds and neb then goes home even to the point of AMA. I do not feel he looks in resp distress today so when he is feeling better he can go home External Record Review External record reviewed: Outpatient record Tests considered The following testing was considered but not selected: CXR but no sputum and no fevers doubt pneumonia Prescription Management I considered prescription management with: Other Discharge Plan Discharge Clinical Impression: Asthma Qualifiers: Asthma severity: severe Asthma persistence: persistent Asthma complication type: with acute exacerbation Qualified Code(s): J45.51 - Severe persistent asthma with (acute) exacerbation Patient Disposition: Home, Self-Care Instructions: Asthma (ED) Additional Instructions: continue to use your neb treatments return for worsening symptoms or no improvement take all medications with food Prescriptions: New prednisone 10 mg tablet See Taper PO DAILY Qty: 30 0RF Taper: Prednisone 40 mg daily for 3 Days and 0 Hour 30 mg daily for 3 Days and 0 Hour 20 mg daily for 3 Days and 0 Hour 10 mg daily for 3 Days and 0 Hour No Action (DME) nebulizer and compressor Device See Rx Instructions .Route Qty: 1 0RF Rx Instructions: As directed (DME) nebulizers [Aeroneb Go Nebulizer] Misc See Rx Instructions .Route Qty: 1 0RF Rx Instructions: As directed albuterol sulfate 2.5 mg /3 mL (0.083 %) Solution For Nebulization 2.5 mg inhalation Q4H PRN (Reason: Shortness Of Breath/Wheezing) Qty: 50 0RF doxycycline monohydrate 100 mg Capsule 100 mg PO BID Qty: 10 0RF prednisone 20 mg tablet 40 mg PO DAILY Qty: 10 0RF albuterol sulfate 90 mcg/actuation HFA aerosol inhaler 1 inh inhalation QID PRN (Reason: shortness of breath or wheezing) Qty: 6.7 0RF azithromycin 250 mg tablet See Rx Instructions .ROUTE .COMPLEX Qty: 6 0RF Rx Instructions: For 250 mg dose pack: take 500 mg today (day 1), then 250 mg for 4 days (days 2-5) albuterol sulfate 90 mcg/actuation HFA aerosol inhaler 2 puff inhalation Q4-6H PRN (Reason: shortness of breath or wheezing) Qty: 8.5 2RF prednisone 50 mg tablet 50 mg PO DAILY Qty: 4 0RF fluticasone propionate 250 mcg/actuation blister with device 2 inh inhalation Q12H Qty: 60 2RF prednisone 10 mg tablet 10 mg PO DIRECTED Qty: 41 0RF Rx Instructions: see taper instructions 60mg on day 1-5, 40mg on day 6, 30mg on day 7, 20mg on day 8, 10mg on day 9, 5mg on day 10 prednisone 50 mg tablet 50 mg PO DAILY Qty: 4 0RF albuterol sulfate 2.5 mg /3 mL (0.083 %) solution for nebulization 2.5 mg inhalation Q4-6H PRN (Reason: shortness of breath or wheezing) Qty: 75 0RF prednisone 20 mg tablet 40 mg PO DAILY Qty: 10 0RF prednisone 20 mg tablet 40 mg PO DAILY Qty: 8 0RF fluticasone propion-salmeterol [Advair Diskus] 500-50 mcg/dose blister with device 1 inh inhalation BID Qty: 60 1RF albuterol sulfate 90 mcg/actuation HFA aerosol inhaler 2 puff inhalation Q4-6H PRN (Reason: shortness of breath or wheezing) Qty: 8.5 1RF epinephrine [EpiPen 2-Arvind] 0.3 mg/0.3 mL auto-injector 0.3 mg IM Q10M PRN (Reason: anaphylaxis) Qty: 2 0RF Rx Instructions: for 2 doses diphenhydramine HCl [Benadryl] 25 mg capsule 50 mg PO TID PRN (Reason: allergic reaction) Qty: 20 0RF prednisone 20 mg tablet 40 mg PO DAILY Qty: 10 0RF albuterol sulfate 90 mcg/actuation HFA aerosol inhaler 2 puff inhalation Q4-6H PRN (Reason: shortness of breath or wheezing) Qty: 8.5 3RF prednisone 50 mg tablet 50 mg PO DAILY Qty: 4 0RF albuterol sulfate 90 mcg/actuation HFA aerosol inhaler 2 puff inhalation Q4-6H PRN (Reason: shortness of breath or wheezing) Qty: 8.5 2RF prednisone 50 mg tablet 50 mg PO DAILY Qty: 4 0RF fluticasone propion-salmeterol 250-50 mcg/dose blister with device 1 inh inhalation BID Qty: 60 0RF prednisone 20 mg tablet 40 mg PO DAILY Qty: 6 0RF fluticasone propion-salmeterol [Advair Diskus] 500-50 mcg/dose blister with device 1 inh inhalation BID Qty: 60 0RF prednisone 20 mg tablet 20 mg PO DAILY Qty: 12 0RF Rx Instructions: Take 3 tablets by mouth daily for 2 days then take 2 tablets by mouth daily for 3 days. Print Language: Yakut
[2025-04-18 05:12] VITALS: BP 146/93; PULSE 92; RESP 20; TEMP 36.6; O2SAT 96
== END 2025-04-18 05:13 | disposition home or self-care (01) ==
PROVIDERS: Emergency Provider Emergency Medicine
DX: J45.901 Unspecified asthma with (acute) exacerbation (principal)
CPT/HCPCS: 94640; 96365; 96375; 99284; J2919; J3475

== ENCOUNTER 2025-06-13 17:12 | Emergency (ER) | payer OTHER, SELFPAY ==
--- NOTE | ~2025-06-13 | XR_ITS ---
CLINICAL HISTORY: sob 2 view chest x-ray Comparison: CR - XR CHEST 1V - 02/25/25 06:32 EDT Findings: Normal size heart. No consolidation, pleural effusion or pneumothorax. No acute fracture. IMPRESSION: 1. No acute findings. This document has been electronically signed by: Stacey Zepeda MD on 06/13/2025 20:27:44
[2025-06-13 17:15] VITALS: BP 165/109; PULSE 110; RESP 24; TEMP 36.6; O2SAT 95; BMI 36.6
--- NOTE | 2025-06-13 17:17 | ED_ITS ---
HPI - Asthma General Chief Complaint: Asthma Stated Complaint: Asthma/sob Time Seen by Provider: 06/13/25 19:45 Source: patient Mode of arrival: ambulatory Limitations: no limitations History of Present Illness ED Provider: Cynthia Deluca PA-C HPI Narrative: Patient is a 30 year old assigned male at with a history of asthma presenting to the emergency department today with concerns of an asthma exacerbation. Patient states that he feels as though he is having increased wheezing and shortness of breath which is consistent with his asthma symptoms. Patient states that he has used Advair previously (the higher dose) and it works well for him. Patient denies any other complaints at this time. Related Data Previous Rx's ?Medication ?Instructions ?Recorded nebulizer and compressor #1 ea 09/15/21 nebulizers (AeroneGetAFive Go Nebulizer) #1 ea 04/18/22 albuterol sulfate 2.5 mg/3 mL 2.5 mg (3 mL) inhalation Q4H PRN 09/07/24 (0.083 %) solution for nebulization Shortness Of Breat h/Wheezing #50 ea albuterol sulfate 90 mcg/actuation 1 inh inhalation QI D PRN shortness 09/07/24 aerosol inhaler of breath or wheezing #6.7 g dean doxycycline monohydrate 100 mg 100 mg PO BID #10 caps 09/07/24 capsule prednisone 20 mg tablet 40 mg (2 x 20 mg) PO DAILY # 10 tabs 09/07/24 prednisone 20 mg tablet 40 mg (2 x 20 mg) PO DAILY # 10 tabs 09/23/24 azithromycin 250 mg tablet See Rx Instructions PO .COM PLEX #6 09/28/24 tabs albuterol sulfate 90 mcg/actuation 2 puff inhalation Q 4-6H PRN 10/07/24 aerosol inhaler shortness of breath or wheez ing #8.5 grams fluticasone propionate 250 2 inh inhalation Q12H #60 e a 10/07/24 mcg/actuation blister powder for inhalation prednisone 50 mg tablet 50 mg PO DAILY #4 tabs 10/07 prednisone 20 mg tablet 40 mg (2 x 20 mg) PO DAILY # 8 tabs 10/23/24 albuterol sulfate 90 mcg/actuation 2 puff inhalation Q 4-6H PRN 10/30/24 aerosol inhaler shortness of breath or wheez ing #8.5 grams fluticasone 500 mcg-salmeterol 50 1 inh inhalation BID #60 ea 10/30/24 mcg/dose blistr powdr for inhalation (Advair Diskus) diphenhydramine HCl 25 mg capsule 50 mg (2 x 25 mg) PO TID PRN 11/06/24 (Benadryl) allergic reaction #20 caps epinephrine 0.3 mg/0.3 mL 0.3 mg (0.3 mL) IM Q10M PRN 11/06/24 injection, auto-injector (EpiPen anaphylaxis #2 ea 2-Arvind) prednisone 20 mg tablet 40 mg (2 x 20 mg) PO DAILY # 10 tabs 11/06/24 prednisone 10 mg tablet 10 mg PO DIRECTED #41 tab s 12/10/24 albuterol sulfate 90 mcg/actuation 2 puff inhalation Q 4-6H PRN 12/30/24 aerosol inhaler shortness of breath or wheez ing #8.5 grams prednisone 50 mg tablet 50 mg PO DAILY #4 tabs 12/30 albuterol sulfate 90 mcg/actuation 2 puff inhalation Q 4-6H PRN 01/15/25 aerosol inhaler shortness of breath or wheez ing #8.5 grams prednisone 50 mg tablet 50 mg PO DAILY #4 tabs 01/15 fluticasone 250 mcg-salmeterol 50 1 inh inhalation BID #60 ea 01/19/25 mcg/dose blistr powdr for inhalation prednisone 50 mg tablet 50 mg PO DAILY #4 tabs 02/10 albuterol sulfate 2.5 mg/3 mL 2.5 mg (3 mL) inhalation Q4-6H PRN 02/17/25 (0.083 %) solution for nebulization shortness of breat h or wheezing #75 mL fluticasone 500 mcg-salmeterol 50 1 inh inhalation BID #60 ea 02/25/25 mcg/dose blistr powdr for inhalation (Advair Diskus) prednisone 20 mg tablet 20 mg PO DAILY #12 tabs 02/11 01/05 prednisone 20 mg tablet 40 mg (2 x 20 mg) PO DAILY # 6 tabs 02/25/25 prednisone 10 mg tablet See Taper PO DAILY #30 tabs 04/18/25 fluticasone 500 mcg-salmeterol 50 1 inh inhalation BID #60 ea 06/13/25 mcg/dose blistr powdr for inhalation (Advair Diskus) prednisone 20 mg tablet 40 mg (2 x 20 mg) PO DAILY C OPD 06/13/25 exacerbation 5 days #10 tabs Allergies Allergy/AdvReac Type Severity Reaction Status Date / Time shellfish derived Allergy Severe SHORTNESS Verified 06/13/25 17:16 OF BREATH, SWELLING shrimp Allergy Severe ANAPHYLAXIS Verified 06/13/25 17:16 Seasonal Allergies Allergy Shortness Verified 06/13/25 17:16 of Breath Review of Systems 2 Constitutional: Constitutional: Reports as per HPI Eyes: Eyes: Reports as per HPI ENT: Reports as per HPI Cardiovascular: Cardiovascular: Reports as per HPI Respiratory: Respiratory: Reports as per HPI Gastrointestinal: Gastrointestinal: Reports as per HPI Genitourinary: Genitourinary: Reports as per HPI Musculoskeletal: Musculoskeletal: Reports as per HPI Integumentary/Breasts: Skin/Breast: Reports as per HPI Neurologic: Reports as per HPI Psychiatric: Psychiatric: Reports as per HPI Endocrine: Endocrine: Reports as per HPI Hematologic/Lymphatic: Hematologic/Lymphatic: Reports as per HPI Allergic/Immunologic: Allergic/Immunologic: Reports as per HPI [facility] Past Medical History Attestation statement: The following information was validated with the patient. Source: old records reviewed and nursing notes reviewed Medical History Asthma Pneumonia due to 2019 novel coronavirus Asthma Family History Family History Mother Asthma Social History Social History Household Members: None Housing: House Do you presently have visiting nurse or other home services: No Alcohol intake: former Patient Tobacco Use Status: Never used Tobacco Smoked in Last 30 Days: No Advance Directives: No Advance Directives Information Provided: Yes Do you have a plan to hurt others: No Plan service: No Current occupational status: unemployed Physical Exam 2 Vital Signs: Vital Signs: Last Vital Signs Temp 97.7 F 06/13/25 21:01 Pulse 100 06/13/25 21:01 Resp 20 06/13/25 21:01 BP 137/73 06/13/25 21:01 Pulse Ox 93 06/13/25 21:01 O2 Del Method Room Air 06/13/25 21:01 BMI result Body Mass Index 36.6 Const: General: alert, awake and anxious Nutritional Appearance: obese O rientation/consciousness: patient oriented x3 HEENT: Head: Yes normal to inspection and Yes atraumatic Ears: hearing grossly normal bilaterally and external ears normal General nose exam: Normal external nose present, no nasal discharge noted and no epistaxis Face and sinus: Yes normal facial exam, No abrasion and No laceration Mouth: Normal oral and palatal mucosa present, no drooling and no muffled voice Eyes: General: appearance normal, both eyes and all related structures P eriorbital: periorbital findings normal Eyelids: Yes eyelids normal C onjunctivae: conjunctivae normal Pupils: Equal, round and reactive pupils present EOM: EOMs intact bilaterally Neck: Neck: Yes normal visual inspection and Yes full ROM Resp: Effort & Inspection: normal respiratory effort and able to speak in complete sentences Auscultation: wheezes expiratory wheezes Neuro: General: patient oriented x3 Cranial nerves: Yes Equal, round and reactive pupils present Cognition (Neuro): normal cognition Extrem: General: Yes normal to inspection, Yes full ROM and Yes capillary refill normal Psych: Appearance: grossly normal Mental Status: mental status grossly normal Affect: normal affect Attitude: cooperative Thought process: N ormal thought process present Thought content: Normal thought content present Insight: Good insight present (Psych) Course Course Course Narrative: This is a Rapid Medical Examination (RME) performed by Zay Ferrell PA-C in triage. Full HPI, ROS, assessment and treatment plan per primary provider in the Main ED. Hx: 30 yo hx asthma here for eval of sob x24 hours. Using inhalers and nebulizers at home without relief. No known sick contacts. PE/vitals: No respiratory distress. Audible wheezes. There are diffuse inspiratory and expiratory wheezes throughout. Plan: Labs, viral swabs, ED bronch protocol Medications Administered Discontinued Medications Generic Name Dose Route Start Last Admin Trade Name Freq PRN Reason Stop Dose Admin Albuterol Sulfate 5 mg/ 0 mg 06/13/25 17:37 06/13/25 17:43 Albuterol/Ipratropium 3 ml INHALE 06/13/25 17:38 7.5 each ONCE ONE Administration Methylprednisolone Sodium Succinate 80 mg 06/13/25 18:53 06/13/25 19:54 Methylprednisolone Sod Succ 125 Mg/2 Ml Vial IVPUSH 06/13/25 18:54 80 mg ONCE ONE Administration Medical Decision Making Medical Decision Making [facility] Narrative: Patient is a 30 year old assigned male at with a history of asthma presenting to the emergency department today with concerns of an asthma exacerbation. Patient's physical exam was as noted in the physical exam portion of this note and consistent with an asthma exacerbation. Patient's blood work showed an elevated WBC count of 13.1. Patient's chest x-ray showed no acute process. Patient's COVID-19 and influenza testing was negative. I explained my physical exam findings as well as all test results to the patient. I answered all questions asked by the patient. Patient received IV solu-medrol and a breathing treatment which, upon re- evaluation, he stated it helped his symptoms significantly. Patient requested I prescribed him a higher dose advair discus because of how much it helped him previously. I believe this is a reasonable request given the patient's asthmatic presentation and several visits for asthma exacerbations. I stressed the importance of the patient taking his medication as directed (either prescribed or as the over the counter packaging recommends). I stressed the importance of the patient following up with his primary care provider. I stressed the importance of the patient returning to the emergency department immediately if his symptoms were to worsen or if he were to develop any dizziness, shortness of breath, difficulty breathing, chest pain, blurry vision, loss of vision, nausea, vomiting, abdominal pain, fever, chills, back pain, or any other complaints. Patient verbalized agreement and understanding with this treatment plan and discharge. Differential Diagnosis Differential Diagnoses: The differential diagnosis associated with the presentation includes Asthma exacerbation Cough COVID-19 Influenza Admission/Observation Consideration of admission/observation: Escalation of care including admission/observation considered Patient would have been admitted to the hospital had his work up had any findings where hospital admission was appropriate and his clinical presentation warranted hospital admission. Lab Data [facility] Lab Attestation statement: I reviewed the patient's lab results. My interpretation of these results are in the MDM Rationale portion of this note. 06/13/25 17:36 06/13/25 17:36 Labs: Lab Results 06/13/25 06/13/25 Range/Units 17:32 17:36 WBC 13.1 H (4.8-10.8) X10*3/uL RBC 5.72 (4.60-5.80) X10*6/uL Hgb 15.6 (14.0-18.0) g/dl Hct 46.9 (42.0-52.0) % MCV 82.0 (80.0-98.0) fL MCH 27.3 (27.0-33.0) pg MCHC 33.3 (31.0-36.0) g/dl RDW 11.9 (11.0-16.0) % Plt Count 406 H (160-400) X10*3/uL MPV 9.4 (9.4-12.4) fL Immature Gran % (Auto) 0.5 H (0.0-0.4) % Neut % (Auto) 57.5 (45-73) % Lymph % (Auto) 23.7 (20-40) % Blaine % (Auto) 7.3 (2-11) % Eos % (Auto) 9.5 H (0-4) % Baso % (Auto) 1.5 (0-2) % Lymph # (Auto) 3.1 (1.2-4.9) X10*3/uL Blaine # (Auto) 1.0 (0.1-1.2) X10*3/uL Eos # (Auto) 1.2 H (0.0-0.4) X10*3/uL Baso # (Auto) 0.2 (0.0-0.2) X10*3/uL Abs Immat Gran (auto) 0.06 H (0.00-0.03) X10*3/uL Absolute Neuts (auto) 7.6 (2.0-8.3) x10*3/uL Absolute Nucleated RBC 0.000 (0.0-0.012) X10*3/uL Nucleated RBC % (auto) 0.0 (0.0-0.2) /100WBC Sodium 140 (135-145) mmol/L Potassium 3.7 (3.3-5.1) mmol/L Chloride 105 (96-108) mmol/L Carbon Dioxide 24 (22-29) mmol/L Anion Gap 15 (12-20) BUN 6 L (9-16) mg/dL Creatinine 0.78 (0.5-1.4) mg/dL Estim Creat Clear Calc 149.0 Estimated GFR > 60 Random Glucose 92 (60-115) mg/dL Calcium 9.3 (8.4-10.2) mg/dL Magnesium 2.0 (1.6-2.6) mg/dL Total Bilirubin 0.3 (0.0-1.0) mg/dL AST 33 (5-37) U/L ALT 39 (0-40) U/L Alkaline Phosphatase 75 (39-117) U/L Total Protein 8.3 H (6.5-8.0) g/dL Albumin 4.9 (3.5-5.0) g/dL COVID-19 (CHRISTIAN) Negative (Negative) COVID-19 Clin Com See Note Influenza Type A (BHARGAVI) Negative (Negative) Influenza Type B (BHARGAVI) Negative (Negative) Influenza A & B Note See Note Independent Interpretation I performed an independent interpretation of an: Plain X-Ray Interpretation: My interpretation is in agreement with the radiologist's impression of this imaging study. L Reason for Exam: sob CLINICAL HISTORY: sob 2 view chest x-ray Comparison: CR - XR CHEST 1V - 02/25/25 06:32 EDT Findings: Normal size heart. No consolidation, pleural effusion or pneumothorax. No acute fracture. IMPRESSION: 1. No acute findings. This document has been electronically signed by: Stacey Zepeda MD on 06/13/2025 20:27:44 Dictated By: Stacey Zepeda MD Signed By: Electronically signed by Stacey Zepeda MD 06/13/252028 Radiology Impression Discussion of test interpretation with radiology: I have reviewed the radiologist's reading. Discharge Plan Discharge Clinical Impression: Asthma Qualifiers: Asthma severity: severe Asthma persistence: persistent Asthma complication type: with acute exacerbation Qualified Code(s): J45.51 - Severe persistent asthma with (acute) exacerbation Patient Disposition: Home, Self-Care Instructions: Asthma (DC) Additional Instructions: IF you are prescribed home medications and/or you are taking over the counter medications at home - it is very important you continue to do so as prescribed / directed unless told otherwise. Follow up with a primary care provider. Return to the emergency department immediately if your symptoms worsen or if you develop any numbness, tingling, dizziness, shortness of breath, difficulty breathing, chest pain, blurry vision, loss of vision, nausea, vomiting, abdominal pain, fever, chills, back pain, or any other complaints. L If you do not have a primary care provider - call any of the below numbers to establish and follow up with a primary care provider. [facility] Primary Care ([place]) [phone] [place] [address], [address] [facility] Primary Care ([address] [place]) [phone] [address] [facility], [address] [facility], [address] [facility] Primary Care ([address]) [phone] [place] [address], [address] [facility], [address] [facility] Primary Care ([place]) [phone] [place] [address] [address] [facility], [address] [facility] Family Medicine [phone] [address] [facility], [address] Please see the information below about our Patient Portal. If you are not yet enrolled in the [facility] Patient Portal, you will receive an enrollment email invitation following your visit to any [facility] setting. You may also self-enroll in the Patient Portal by visiting our website: [email or web address] The following information is required to access the Patient Portal: - Your [facility] Medical Record Number - Your personal home email address (must match what is in your electronic medical record, Registration staff can assist with this) - Name - Date of Capabilities of the Patient Portal: - Message some providers - View upcoming appointments - Access your health summary, medical history, and visit history - View current conditions and allergies - View procedure and lab results - View your medications, including guidelines, side effects, and precautions - Complete pre-appointment questionnaires requested by your provider - Ready summary reports of your office visits and procedures To access the Patient Portal Mobile Vee, follow these directions: - Search [employer] in the Vee Store or [email or web address] Store - Download the Vee - Search for [facility] - Enter your login/password Prescriptions: New fluticasone propion-salmeterol [Advair Diskus] 500-50 mcg/dose blister with device 1 inh inhalation BID Qty: 60 0RF prednisone 20 mg tablet 40 mg PO DAILY 5 Days Qty: 10 0RF No Action (DME) nebulizer and compressor Device See Rx Instructions .Route Qty: 1 0RF Rx Instructions: As directed (DME) nebulizers [Aeroneb Go Nebulizer] [facility] See Rx Instructions .Route Qty: 1 0RF Rx Instructions: As directed albuterol sulfate 2.5 mg /3 mL (0.083 %) Solution For Nebulization 2.5 mg inhalation Q4H PRN (Reason: Shortness Of Breath/Wheezing) Qty: 50 0RF doxycycline monohydrate 100 mg Capsule 100 mg PO BID Qty: 10 0RF prednisone 20 mg tablet 40 mg PO DAILY Qty: 10 0RF albuterol sulfate 90 mcg/actuation HFA aerosol inhaler 1 inh inhalation QID PRN (Reason: shortness of breath or wheezing) Qty: 6.7 0RF azithromycin 250 mg tablet See Rx Instructions .ROUTE .COMPLEX Qty: 6 0RF Rx Instructions: For 250 mg dose pack: take 500 mg today (day 1), then 250 mg for 4 days (days 2-5) albuterol sulfate 90 mcg/actuation HFA aerosol inhaler 2 puff inhalation Q4-6H PRN (Reason: shortness of breath or wheezing) Qty: 8.5 2RF prednisone 50 mg tablet 50 mg PO DAILY Qty: 4 0RF fluticasone propionate 250 mcg/actuation blister with device 2 inh inhalation Q12H Qty: 60 2RF prednisone 10 mg tablet 10 mg PO DIRECTED Qty: 41 0RF Rx Instructions: see taper instructions 60mg on day 1-5, 40mg on day 6, 30mg on day 7, 20mg on day 8, 10mg on day 9, 5mg on day 10 prednisone 50 mg tablet 50 mg PO DAILY Qty: 4 0RF albuterol sulfate 2.5 mg /3 mL (0.083 %) solution for nebulization 2.5 mg inhalation Q4-6H PRN (Reason: shortness of breath or wheezing) Qty: 75 0RF prednisone 20 mg tablet 40 mg PO DAILY Qty: 10 0RF prednisone 20 mg tablet 40 mg PO DAILY Qty: 8 0RF fluticasone propion-salmeterol [Advair Diskus] 500-50 mcg/dose blister with device 1 inh inhalation BID Qty: 60 1RF albuterol sulfate 90 mcg/actuation HFA aerosol inhaler 2 puff inhalation Q4-6H PRN (Reason: shortness of breath or wheezing) Qty: 8.5 1RF epinephrine [EpiPen 2-Arvind] 0.3 mg/0.3 mL auto-injector 0.3 mg IM Q10M PRN (Reason: anaphylaxis) Qty: 2 0RF Rx Instructions: for 2 doses diphenhydramine HCl [Benadryl] 25 mg capsule 50 mg PO TID PRN (Reason: allergic reaction) Qty: 20 0RF prednisone 20 mg tablet 40 mg PO DAILY Qty: 10 0RF albuterol sulfate 90 mcg/actuation HFA aerosol inhaler 2 puff inhalation Q4-6H PRN (Reason: shortness of breath or wheezing) Qty: 8.5 3RF prednisone 50 mg tablet 50 mg PO DAILY Qty: 4 0RF albuterol sulfate 90 mcg/actuation HFA aerosol inhaler 2 puff inhalation Q4-6H PRN (Reason: shortness of breath or wheezing) Qty: 8.5 2RF prednisone 50 mg tablet 50 mg PO DAILY Qty: 4 0RF fluticasone propion-salmeterol 250-50 mcg/dose blister with device 1 inh inhalation BID Qty: 60 0RF prednisone 20 mg tablet 40 mg PO DAILY Qty: 6 0RF fluticasone propion-salmeterol [Advair Diskus] 500-50 mcg/dose blister with device 1 inh inhalation BID Qty: 60 0RF prednisone 20 mg tablet 20 mg PO DAILY Qty: 12 0RF Rx Instructions: Take 3 tablets by mouth daily for 2 days then take 2 tablets by mouth daily for 3 days. prednisone 10 mg tablet See Taper PO DAILY Qty: 30 0RF Taper: Prednisone 40 mg daily for 3 Days and 0 Hour 30 mg daily for 3 Days and 0 Hour 20 mg daily for 3 Days and 0 Hour 10 mg daily for 3 Days and 0 Hour Interventions: ED Discharge Assessment Last Done: 06/13/25 21:01 Discharge Date/Time: 06/13/25 21:01 Print Language: Kiswahili
[2025-06-13 17:37] VITALS: PULSE 105; RESP 31; O2SAT 96
[2025-06-13] MEDS: Albuterol Sulfate 5 MG, Albuterol/Iprat 2.5/0.5MG 3 ML 3 ML INHALE (17:43)
[2025-06-13 17:48] LABS: MANUAL DIFF FLAG NO
[2025-06-13 17:52] LABS: Hematocrit 46.9 % (42.0-52.0); Hemoglobin 15.6 g/dl (14.0-18.0); Imm Gran Abs Auto 0.06 X10*3/uL (0.00-0.03); Imm Gran Pct Auto 0.5 % (0.0-0.4); Lymphocytes Absolute Auto 3.1 X10*3/uL (1.2-4.9); Mean Corpuscular HGB Conc 33.3 g/dl (31.0-36.0); Mean Corpuscular Hemoglobin 27.3 pg (27.0-33.0); Mean Corpuscular Volume 82.0 fL (80.0-98.0); NRBC Abs Auto 0.000 X10*3/uL (0.0-0.012); NRBC Pct Auto 0.0 /100WBC (0.0-0.2); Platelet Count 406 X10*3/uL (160-400); Red Blood Count 5.72 X10*6/uL (4.60-5.80); White Blood Count 13.1 X10*3/uL (4.8-10.8)
[2025-06-13 18:04] VITALS: BP 142/71; PULSE 108; RESP 20; TEMP 36.5; O2SAT 94
[2025-06-13 18:05] LABS: COVID-19 Test Negative (Negative); IDNOW Serial# 55D5AD1C; IDNOW Serial# 58CA691E; Influenza B2 Negative (Negative)
[2025-06-13 18:09] LABS: Alanine Aminotransferase 39 U/L (0-40); Albumin Level 4.9 g/dL (3.5-5.0); Alkaline Phosphatase 75 U/L (39-117); Anion Gap 15 (12-20); Aspartate Amino Transferase 33 U/L (5-37); Blood Urea Nitrogen 6 mg/dL (9-16); Calcium 9.3 mg/dL (8.4-10.2); Carbon Dioxide 24 mmol/L (22-29); Chloride 105 mmol/L (96-108); Creatinine Clr Calc Pharmacy 149.0; Estimated Glomerular Filt Rate > 60; Magnesium 2.0 mg/dL (1.6-2.6); Potassium 3.7 mmol/L (3.3-5.1); Sodium 140 mmol/L (135-145); Total Protein 8.3 g/dL (6.5-8.0)
[2025-06-13 20:41] VITALS: BP 119/68; PULSE 98; RESP 18; TEMP 36.5; O2SAT 93
[2025-06-13 20:57] VITALS: BP 137/73; PULSE 100; RESP 20; TEMP 36.5; O2SAT 93
[2025-06-13 21:01] VITALS: BP 137/73; PULSE 100; RESP 20; TEMP 36.5; O2SAT 93
== END 2025-06-13 21:01 | disposition home or self-care (01) ==
PROVIDERS: Physician Assistant Medical; Emergency Provider Emergency Medicine Emergency Medical Services
DX: J45.51 Severe persistent asthma with (acute) exacerbation (principal); R06.02 Shortness of breath; Z03.818 Encounter for observation for suspected exposure to other biological agents ruled out
CPT/HCPCS: 36415; 71046; 80053; 83735; 85025; 87502; 87635; 94640; 96374; 99284; J2919

== ENCOUNTER → 2025-06-13 19:22 | Outpatient (BNV) | payer OTHER, SELFPAY | PROVIDERS: Emergency Provider Emergency Medicine Emergency Medical Services; Visit Provider Specialist | DX: R06.02 Shortness of breath (principal) | CPT/HCPCS: 71046 ==

== ENCOUNTER 2025-08-02 21:02 | Emergency (ER) | payer OTHER, SELFPAY ==
--- NOTE | ~2025-08-02 | XR_ITS ---
CLINICAL HISTORY: Dyspnea 2 view chest x-ray Comparison: None provided Findings: The lungs are clear. Normal size heart. No acute fracture. IMPRESSION: 1. No acute findings. This document has been electronically signed by: Franklin Cm MD on 08/02/2025 22:23:37
[2025-08-02 21:14] VITALS: BP 119/77; PULSE 127; RESP 28; TEMP 36.6; O2SAT 88; BMI 33.3
--- NOTE | 2025-08-02 21:20 | PC.NURSE ---
Pt alert and oriented, reports [place] and became short of breath. He does have a hx of asthma. Pt wheezing bilat, tachypneic, spo2 90% on ra and tachycardic in the 130s. No pain. RT at bedside for nebulizer. Pt placed on tele. Awaiting cxr.
[2025-08-02] MEDS: Albuterol Sulfate 2.5 MG, Albuterol/Iprat 2.5/0.5MG 3 ML 3 ML INHALE (21:21)
[2025-08-02 21:22] VITALS: PULSE 126; RESP 20; O2SAT 91
--- NOTE | 2025-08-02 21:44 | ED_ITS ---
HPI - SOB/Dyspnea General Chief Complaint: Dyspnea Stated Complaint: asthma Time Seen by Provider: 08/02/25 21:15 History of Present Illness HPI Narrative: patient is a 30-year-old male with a history of asthma. Presents today with having increasing shortness of breath over the last 2 days. Wheezing tightness. Has not been admitted to the hospital for the last 10 years. Previous admission over 10 years ago. Patient denies any smoking history no history of marijuana use. No change in environment. No coughing or congestion or upper respiratory symptoms. Related Data Previous Rx's ?Medication ?Instructions ?Recorded nebulizer and compressor #1 ea 09/15/21 nebulizers (Aeroneb Go Nebulizer) #1 ea 04/18/22 albuterol sulfate 2.5 mg/3 mL 2.5 mg (3 mL) inhalation Q4H PRN 09/07/24 (0.083 %) solution for nebulization Shortness Of Breat h/Wheezing #50 ea albuterol sulfate 90 mcg/actuation 1 inh inhalation QI D PRN shortness 09/07/24 aerosol inhaler of breath or wheezing #6.7 g dean doxycycline monohydrate 100 mg 100 mg PO BID #10 caps 09/07/24 capsule prednisone 20 mg tablet 40 mg (2 x 20 mg) PO DAILY # 10 tabs 09/07/24 prednisone 20 mg tablet 40 mg (2 x 20 mg) PO DAILY # 10 tabs 09/23/24 azithromycin 250 mg tablet See Rx Instructions PO .COM PLEX #6 09/28/24 tabs albuterol sulfate 90 mcg/actuation 2 puff inhalation Q 4-6H PRN 10/07/24 aerosol inhaler shortness of breath or wheez ing #8.5 grams fluticasone propionate 250 2 inh inhalation Q12H #60 e a 10/07/24 mcg/actuation blister powder for inhalation prednisone 50 mg tablet 50 mg PO DAILY #4 tabs 10/07 prednisone 20 mg tablet 40 mg (2 x 20 mg) PO DAILY # 8 tabs 10/23/24 albuterol sulfate 90 mcg/actuation 2 puff inhalation Q 4-6H PRN 10/30/24 aerosol inhaler shortness of breath or wheez ing #8.5 grams fluticasone 500 mcg-salmeterol 50 1 inh inhalation BID #60 ea 10/30/24 mcg/dose blistr powdr for inhalation (Advair Diskus) diphenhydramine HCl 25 mg capsule 50 mg (2 x 25 mg) PO TID PRN 11/06/24 (Benadryl) allergic reaction #20 caps epinephrine 0.3 mg/0.3 mL 0.3 mg (0.3 mL) IM Q10M PRN 11/06/24 injection, auto-injector (EpiPen anaphylaxis #2 ea 2-Arvind) prednisone 20 mg tablet 40 mg (2 x 20 mg) PO DAILY # 10 tabs 11/06/24 prednisone 10 mg tablet 10 mg PO DIRECTED #41 tab s 12/10/24 albuterol sulfate 90 mcg/actuation 2 puff inhalation Q 4-6H PRN 12/30/24 aerosol inhaler shortness of breath or wheez ing #8.5 grams prednisone 50 mg tablet 50 mg PO DAILY #4 tabs 12/30 albuterol sulfate 90 mcg/actuation 2 puff inhalation Q 4-6H PRN 01/15/25 aerosol inhaler shortness of breath or wheez ing #8.5 grams prednisone 50 mg tablet 50 mg PO DAILY #4 tabs 01/15 fluticasone 250 mcg-salmeterol 50 1 inh inhalation BID #60 ea 01/19/25 mcg/dose blistr powdr for inhalation prednisone 50 mg tablet 50 mg PO DAILY #4 tabs 02/10 albuterol sulfate 2.5 mg/3 mL 2.5 mg (3 mL) inhalation Q4-6H PRN 02/17/25 (0.083 %) solution for nebulization shortness of breat h or wheezing #75 mL fluticasone 500 mcg-salmeterol 50 1 inh inhalation BID #60 ea 02/25/25 mcg/dose blistr powdr for inhalation (Advair Diskus) prednisone 20 mg tablet 20 mg PO DAILY #12 tabs 02/11 01/05 prednisone 20 mg tablet 40 mg (2 x 20 mg) PO DAILY # 6 tabs 02/25/25 prednisone 10 mg tablet See Taper PO DAILY #30 tabs 04/18/25 fluticasone 500 mcg-salmeterol 50 1 inh inhalation BID #60 ea 06/13/25 mcg/dose blistr powdr for inhalation (Advair Diskus) prednisone 20 mg tablet 40 mg (2 x 20 mg) PO DAILY C OPD 06/13/25 exacerbation 5 days #10 tabs azithromycin 250 mg tablet See Rx Instructions PO .COM PLEX 08/03/25 upper resp infection #6 tabs prednisone 20 mg tablet 40 mg (2 x 20 mg) PO DAILY # 10 tabs 08/03/25 Allergies Allergy/AdvReac Type Severity Reaction Status Date / Time shellfish derived Allergy Severe SHORTNESS Verified 08/02/25 21:16 OF BREATH, SWELLING shrimp Allergy Severe ANAPHYLAXIS Verified 08/02/25 21:16 Seasonal Allergies Allergy Shortness Verified 08/02/25 21:16 of Breath Review of Systems Review of Systems: Positive shortness of breath Yes all other systems are reviewed and are negative REPLACED BY [facility] Past Medical History Attestation statement: The following information was validated with the patient. Medical History Asthma Pneumonia due to 2019 novel coronavirus Asthma Family History Family History Mother Asthma Social History Social History Household Members: None Housing: House Do you presently have visiting nurse or other home services: No Alcohol intake: former Patient Tobacco Use Status: Never used Tobacco Smoked in Last 30 Days: No Use of substances other than those prescribed or required for medical reasons: No Advance Directives: No Advance Directives Information Provided: No Do you have a plan to hurt others: No Plan service: No Current occupational status: unemployed Physical Exam Exam: Exam: Appearance: Alert. Oriented X3. No acute distress. Eyes: Pupils equal, round and reactive to light. ENT: Pharynx normal. Neck: Normal inspection. Neck supple. No lymph nodes noted. No crepitus CVS: Normal heart rate and rhythm. Pulses normal. Normal S1 and S2 Respiratory: diminished breath sounds bilaterally positive expiratory wheezing noted. Abdomen: Soft and nontender. No rigidity. No distention. good BS x4 Skin: Skin warm and dry. Normal skin color. Normal skin turgor. Extremities: No lower extremity edema. Neurovascular intact to all extremities. No Lacerations. No Rash Neuro: Oriented X 3. No motor deficit. No sensory deficit. Moving all extermities. No slurred speech Vital Signs: Vital Signs: Last Vital Signs Temp 97.9 F 08/02/25 21:14 Pulse 113 H 08/02/25 23:46 Resp 22 H 08/02/25 23:46 BP 102/57 L 08/02/25 23:46 Pulse Ox 93 08/02/25 23:46 O2 Del Method Room Air 08/02/25 23:46 BMI result Body Mass Index 33.3 Medications Administered Discontinued Medications Generic Name Dose Route Start Last Admin Trade Name Darius PRN Reason Stop Dose Admin Albuterol Sulfate 2.5 mg/ 0 mg 08/02/25 21:20 08/02/25 21:21 Albuterol/Ipratropium 3 ml INHALE 08/02/25 21:21 2 dose ONCE ONE Administration Magnesium Sulfate 2 gm in 50 mls @ 150 mls/hr 08/02/25 21:42 08/02/25 22:13 Magnesium Sulfate/H2o IV 08/02/25 22:01 Infused ONCE ONE Infusion Sodium Chloride 1,000 mls @ 999 mls/hr 08/02/25 21:45 08/02/25 23:46 Ns IV 08/02/25 22:45 Infused .Q1H1M ENRIKE Infusion Methylprednisolone Sodium Succinate 125 mg 08/02/25 21:42 08/02/25 21:49 Methylprednisolone Sod Succ 125 Mg/2 Ml Vial IVPUSH 08/02/25 21:43 125 mg ONCE ONE Administration Medical Decision Making Medical Decision Making [facility] Narrative: Given neb treatments steroid magnesium monitored in the emergency department. Symptoms improved dramatically. O2 sats now 95% on room air patient ambulated without any difficulty feel comfortable about going home in no distress. Re- examination of his lungs still diminished bed wheezing has subsided. Patient wants to go home does not want to stay. Will discharge with close follow-up. Differential Diagnosis Differential Diagnoses: The differential diagnosis associated with the presentation includes Asthma, COVID, flu, RSV, pneumonia Admission/Observation Consideration of admission/observation: Escalation of care including admission/observation considered Lab Data [facility] Lab Attestation statement: I reviewed the patient's lab results. Labs: Lab Results 08/02/25 Range/Units 21:32 Influenza Type A (PCR) NEGATIVE (Negative) Influenza Type B (PCR) NEGATIVE (Negative) RSV RNA Qual (PCR) NEGATIVE (Negative) SARS-CoV-2 RNA (RT-PCR) NEGATIVE (Negative) Independent Interpretation I performed an independent interpretation of an: Plain X-Ray ( chest x-ray was grossly negative for pneumonia pneumothorax) Radiology Impression Discussion of test interpretation with radiology: I have reviewed the radiologist's reading. External Record Review External record reviewed: Inpatient record Chronic Conditions asthma Social Determinants Patient?s care significantly limited by Social Determinants of Health including: Problems related to primary support group Critical Care Time Critical Care Time Critical Care Time: Yes Total Critical Care Time: 40 Attestation: I have personally provided 40 minutes of critical care time exclusive of time spent on separately billable procedures. Time includes review of lab data, radiology results, discussion with consultants, and monitoring for potential decompensation. Interventions were performed as documented above Discharge Plan Discharge Clinical Impression: Asthma Qualifiers: Asthma severity: severe Asthma persistence: persistent Asthma complication type: with acute exacerbation Qualified Code(s): J45.51 - Severe persistent asthma with (acute) exacerbation Patient Disposition: Home, Self-Care Instructions: Asthma (DC) Prescriptions: New azithromycin 250 mg tablet See Rx Instructions .ROUTE .COMPLEX Qty: 6 0RF Rx Instructions: take 500 mg today (day 1), then 250 mg for 4 days (days 2-5) prednisone 20 mg tablet 40 mg PO DAILY Qty: 10 0RF No Action (DME) nebulizer and compressor Device See Rx Instructions .Route Qty: 1 0RF Rx Instructions: As directed (DME) nebulizers [Aeroneb Go Nebulizer] Misc See Rx Instructions .Route Qty: 1 0RF Rx Instructions: As directed albuterol sulfate 2.5 mg /3 mL (0.083 %) Solution For Nebulization 2.5 mg inhalation Q4H PRN (Reason: Shortness Of Breath/Wheezing) Qty: 50 0RF doxycycline monohydrate 100 mg Capsule 100 mg PO BID Qty: 10 0RF prednisone 20 mg tablet 40 mg PO DAILY Qty: 10 0RF albuterol sulfate 90 mcg/actuation HFA aerosol inhaler 1 inh inhalation QID PRN (Reason: shortness of breath or wheezing) Qty: 6.7 0RF azithromycin 250 mg tablet See Rx Instructions .ROUTE .COMPLEX Qty: 6 0RF Rx Instructions: For 250 mg dose pack: take 500 mg today (day 1), then 250 mg for 4 days (days 2-5) albuterol sulfate 90 mcg/actuation HFA aerosol inhaler 2 puff inhalation Q4-6H PRN (Reason: shortness of breath or wheezing) Qty: 8.5 2RF prednisone 50 mg tablet 50 mg PO DAILY Qty: 4 0RF fluticasone propionate 250 mcg/actuation blister with device 2 inh inhalation Q12H Qty: 60 2RF prednisone 10 mg tablet 10 mg PO DIRECTED Qty: 41 0RF Rx Instructions: see taper instructions 60mg on day 1-5, 40mg on day 6, 30mg on day 7, 20mg on day 8, 10mg on day 9, 5mg on day 10 prednisone 50 mg tablet 50 mg PO DAILY Qty: 4 0RF albuterol sulfate 2.5 mg /3 mL (0.083 %) solution for nebulization 2.5 mg inhalation Q4-6H PRN (Reason: shortness of breath or wheezing) Qty: 75 0RF fluticasone propion-salmeterol [Advair Diskus] 500-50 mcg/dose blister with device 1 inh inhalation BID Qty: 60 0RF prednisone 20 mg tablet 40 mg PO DAILY 5 Days Qty: 10 0RF prednisone 20 mg tablet 40 mg PO DAILY Qty: 10 0RF prednisone 20 mg tablet 40 mg PO DAILY Qty: 8 0RF fluticasone propion-salmeterol [Advair Diskus] 500-50 mcg/dose blister with device 1 inh inhalation BID Qty: 60 1RF albuterol sulfate 90 mcg/actuation HFA aerosol inhaler 2 puff inhalation Q4-6H PRN (Reason: shortness of breath or wheezing) Qty: 8.5 1RF epinephrine [EpiPen 2-Arvind] 0.3 mg/0.3 mL auto-injector 0.3 mg IM Q10M PRN (Reason: anaphylaxis) Qty: 2 0RF Rx Instructions: for 2 doses diphenhydramine HCl [Benadryl] 25 mg capsule 50 mg PO TID PRN (Reason: allergic reaction) Qty: 20 0RF prednisone 20 mg tablet 40 mg PO DAILY Qty: 10 0RF albuterol sulfate 90 mcg/actuation HFA aerosol inhaler 2 puff inhalation Q4-6H PRN (Reason: shortness of breath or wheezing) Qty: 8.5 3RF prednisone 50 mg tablet 50 mg PO DAILY Qty: 4 0RF albuterol sulfate 90 mcg/actuation HFA aerosol inhaler 2 puff inhalation Q4-6H PRN (Reason: shortness of breath or wheezing) Qty: 8.5 2RF prednisone 50 mg tablet 50 mg PO DAILY Qty: 4 0RF fluticasone propion-salmeterol 250-50 mcg/dose blister with device 1 inh inhalation BID Qty: 60 0RF prednisone 20 mg tablet 40 mg PO DAILY Qty: 6 0RF fluticasone propion-salmeterol [Advair Diskus] 500-50 mcg/dose blister with device 1 inh inhalation BID Qty: 60 0RF prednisone 20 mg tablet 20 mg PO DAILY Qty: 12 0RF Rx Instructions: Take 3 tablets by mouth daily for 2 days then take 2 tablets by mouth daily for 3 days. prednisone 10 mg tablet See Taper PO DAILY Qty: 30 0RF Taper: Prednisone 40 mg daily for 3 Days and 0 Hour 30 mg daily for 3 Days and 0 Hour 20 mg daily for 3 Days and 0 Hour 10 mg daily for 3 Days and 0 Hour Print Language: Ukrainian
[2025-08-02] MEDS: Magnesium Sulfate/H2O 2 GM/50 ML PIGGYBACK IV (21:52)
[2025-08-02 22:13] VITALS: PULSE 125; RESP 22; O2SAT 92
[2025-08-02 22:17] LABS: Resp Syncy Virus RNA Qual PCR NEGATIVE (Negative); SARS COV2 PCR INHOUSE NEGATIVE (Negative)
[2025-08-02 23:46] VITALS: BP 102/57; PULSE 113; RESP 22; O2SAT 93
[2025-08-03 01:23] VITALS: BP 102/59; PULSE 108; RESP 20; TEMP 36.1; O2SAT 94
[2025-08-03 01:31] VITALS: BP 102/59; PULSE 108; RESP 20; TEMP 36.1; O2SAT 94
== END 2025-08-03 01:32 | disposition home or self-care (01) ==
PROVIDERS: Emergency Provider Emergency Medicine Emergency Medical Services
DX: J45.41 Moderate persistent asthma with (acute) exacerbation (principal); R06.02 Shortness of breath; R06.00 Dyspnea, unspecified; Z03.818 Encounter for observation for suspected exposure to other biological agents ruled out; Z79.51 Long term (current) use of inhaled steroids
CPT/HCPCS: 71046; 87637; 94640; 96361; 96374; 96375; 99284; J2919; J3475

== ENCOUNTER → 2025-08-02 21:55 | Outpatient (BNV) | payer OTHER, SELFPAY | PROVIDERS: Emergency Provider Emergency Medicine Emergency Medical Services; Visit Provider Radiology Diagnostic Radiology | DX: R06.00 Dyspnea, unspecified (principal) | CPT/HCPCS: 71046 ==